=== PATIENT | male | born 1930 | race Caucasian/White ===

== ENCOUNTER 2016-07-21 00:45 | Inpatient (IN) | payer OTHER, MEDICARE ==
[2016-07-21 01:15] VITALS: BMI 22.9
--- NOTE | 2016-07-21 01:51 | PDOC ---
*Physical Exam - Vital Signs Last Vital Signs Temp Pulse Resp BP Pulse Ox 97.4 F L 64 18 122/76 95 07/21/16 01:01 07/21/16 01:01 07/21/16 01:01 07/21/16 01:01 07/21/16 01:01 ED Treatment Course - LABORATORY CBC & Chemistry Diagram: 07/21/16 01:25 07/21/16 02:32 Medical Decision Making - Medical Decision Making 07/21/16 01:50 agree with care from AYDIN Bear *DC/Admit/Observation/Transfer Diagnosis at time of Disposition: CHF (congestive heart failure), UTI (lower urinary tract infection), Renal failure - Discharge Dispostion Condition at time of disposition: Stable
[2016-07-21 01:52] LABS: BASOPHIL 0.8 % (0-2.0); EOSINOPHIL 4.2 % (0-4.5); MCH 33.3 pg (25.7-33.7); MCHC 32.5 g/dl (32.0-35.9); MEAN CELL VOLUME 102.2 fl (80-96); NEUTROPHILS 73.8 % (42.8-82.8); PLATELET COUNT 121 K/MM3 (134-434); RDW 15.2 % (11.9-15.9); WHITE BLOOD COUNT 5.3 K/mm3 (4.0-10.0)
--- NOTE | 2016-07-21 01:59 | PDOC ---
History of Present Illness <Lilo Tatum - Last Filed: 07/21/16 04:52> - General History Source: Patient, Significant Other Exam Limitations: No Limitations - History of Present Illness Initial Comments: 07/21/16 01:54 86yo Male patient presented to ED via EMS c/o diff breathing, anxiety, and diminished urine output per . states symptoms began couple days ago continues to worsen. She also notes that patient lower extremities are holding fluid. Patient denies CP, Abd pain, n/v/d, fever, cough, dysuria, hematuria, rectal bleeding, or any other complaints at this time. Timing/Duration: getting worse Severity: moderate Modifying Factors: worse with: cold therapy, eating, immobilization, medication , movement, rest, other Associated Symptoms: denies: denies symptoms, chest pain, cough, diaphoresis, fever/chills, headaches, loss of appetite, malaise, nausea/vomiting, rash, seizure, shortness of breath, syncope, weakness, other <Ina Bear - Last Filed: 07/21/16 04:56> - General Chief Complaint: Palpitations Stated Complaint: CHEST PAIN Time Seen by Provider: 07/21/16 01:46 Past History <Lilo Tatum - Last Filed: 07/21/16 04:52> - Travel Traveled outside of the country in the last 30 days: No Close contact w/someone who was outside of country & ill: No - Past Medical History Cardiac Disorders: Yes (CAD, PVD, CABG, stents) Diabetes: Yes HTN: Yes Kidney Stones: Yes Thyroid Disease: No - Surgical History Cardiac Surgery: Yes (cabg x 3/defibrillator implanted) Orthopedic Surgery: Yes (lt foot amputated) - Immunization History Td Vaccination: No TDAP Vaccination: No Immunization Up to Date: Yes - Psycho/Social/Smoking Cessation Hx Anxiety: No Suicidal Ideation: No Smoking Status: No Smoking History: Former smoker Years of Tobacco Use: 50 Have you smoked in the past 12 months: No Number of Cigarettes Smoked Daily: 0 If you are a former smoker, when did you quit?: 2009 Cigars Per Day: 0 Information on smoking cessation initiated: No Hx Alcohol Use: No Drug/Substance Use Hx: No Substance Use Type: None Hx Substance Use Treatment: No <Ina Bear - Last Filed: 07/21/16 04:56> - Past Medical History Allergies/Adverse Reactions: Allergies Allergy/AdvReac Type Severity Reaction Status Date / Time No Known Allergies Allergy Verified 10/25/15 16:09 Home Medications: Ambulatory Orders Ascorbate Calcium [Vitamin C] 500 mg PO DAILY 01/20/14 Aspirin [ASA -] 81 mg PO DAILY 01/20/14 Carvedilol 3.125 mg PO BID 01/20/14 Clopidogrel Bisulfate [Plavix -] 75 mg PO DAILY 01/20/14 Dutasteride [Avodart] 0.5 mg PO HS 01/20/14 Folic Acid - 1 mg PO DAILY 01/20/14 Levothyroxine [Synthroid -] 50 mcg PO DAILY 01/20/14 Pregabalin [Lyrica -] 50 mg PO DAILY 01/20/14 Ranitidine HCl [Zantac] 150 mg PO BID 01/20/14 Tamsulosin HCl [Flomax -] 0.4 mg PO DAILY 01/20/14 Furosemide [Lasix -] 20 mg PO DAILY 10/25/15 Magnesium 200 mg PO DAILY 10/25/15 Insulin Sliding Scale [Novolog Vial Sliding Scale -] 1 vial SQ ACHS units 10/30 Review of Systems - Review of Systems Able to Perform ROS?: Yes Is the patient limited Prydeinig proficient: No Constitutional: No: Chills, Fever Respiratory: Yes: Other (Trouble breathing). No: Cough, Orthopnea, Shortness of Breath, Wheezing Cardiac (ROS): Yes: Edema. No: Chest Pain, Irregular Heart Rate, Lightheadedness, Palpitations, Syncope ABD/GI: No: Diarrhea, Nausea, Poor Appetite, Rectal Bleeding, Vomiting, Tarry Stools, Other (abdominal pain) : No: Burning, Dysuria, Frequency, Flank Pain, Hematuria Musculoskeletal: No: Back Pain All Other Systems: Reviewed and Negative <Ina Bear - Last Filed: 07/21/16 04:56> *Physical Exam - Vital Signs Last Vital Signs Temp Pulse Resp BP Pulse Ox 97.4 F L 64 18 122/76 95 07/21/16 01:01 07/21/16 01:01 07/21/16 01:01 07/21/16 01:01 07/21/16 01:01 <Lilo Tatum - Last Filed: 07/21/16 04:52> - Vital Signs Last Vital Signs Temp Pulse Resp BP Pulse Ox 97.4 F L 64 18 122/76 95 07/21/16 01:01 07/21/16 01:01 07/21/16 01:01 07/21/16 01:01 07/21/16 01:01 - Physical Exam General Appearance: Yes: Nourished Neck: positive: Trachea midline, Supple Respiratory/Chest: positive: Decreased Breath Sounds (LLL and HAI) Cardiovascular: positive: Regular Rate, Other (Paced) Gastrointestinal/Abdominal: positive: Normal Bowel Sounds, Flat, Soft. negative : Tender Musculoskeletal: positive: Normal Inspection. 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 intact, Fully Oriented, Alert, Normal Mood/ Affect, Normal Response <Ina Bear D - Last Filed: 07/21/16 04:56> ED Treatment Course - LABORATORY CBC & Chemistry Diagram: 07/21/16 01:25 07/21/16 02:32 - ADDITIONAL ORDERS Additional order review: Laboratory Results 07/21/16 07/21/16 07/21/16 03:20 02:32 02:32 INR Sodium 139 Potassium 5.0 D Chloride 106 Carbon Dioxide 23 Anion Gap 10 BUN 49 H Creatinine 1.6 H Creat Clearance w eGFR 41.29 Random Glucose 178 H D Calcium 8.4 L Total Bilirubin 0.4 D AST 20 D ALT 29 D Alkaline Phosphatase 129 H Creatine Kinase 110 Troponin I 0.05 D B-Natriuretic Peptide 8544.24 H Cancelled Total Protein 7.3 Albumin 3.3 L D Urine Color Yellow Urine Appearance Cloudy Urine pH 5.0 Ur Specific [place] 1.015 Urine Protein 1+ H Urine Glucose (UA) Negative Urine Ketones Negative Urine Blood 2+ H Urine Nitrite Negative Urine Bilirubin Negative Urine Urobilinogen Negative Ur Leukocyte Esterase 3+ H Urine RBC 31 Urine WBC 788 Urine Bacteria Moderate Hyaline Casts 4 Urine Mucus Rare 07/21/16 07/21/16 01:25 01:25 INR 1.23 H Sodium Cancelled Potassium Cancelled Chloride Cancelled Carbon Dioxide Cancelled Anion Gap Cancelled BUN Cancelled Creatinine Cancelled Creat Clearance w eGFR Cancelled Random Glucose Cancelled Calcium Cancelled Total Bilirubin Cancelled AST Cancelled ALT Cancelled Alkaline Phosphatase Cancelled Creatine Kinase Cancelled Troponin I Cancelled B-Natriuretic Peptide Total Protein Cancelled Albumin Cancelled Urine Color Urine Appearance Urine pH Ur Specific [place] Urine Protein Urine Glucose (UA) Urine Ketones Urine Blood Urine Nitrite Urine Bilirubin Urine Urobilinogen Ur Leukocyte Esterase Urine RBC Urine WBC Urine Bacteria Hyaline Casts Urine Mucus 07/21/16 01:25 RBC 3.55 L MCV 102.2 H MCHC 32.5 RDW 15.2 D MPV 11.0 D Neutrophils % 73.8 Lymphocytes % 10.3 D Monocytes % 10.9 H Eosinophils % 4.2 Basophils % 0.8 <Lilo Tatum - Last Filed: 07/21/16 04:52> - LABORATORY CBC & Chemistry Diagram: 07/21/16 01:25 07/21/16 02:32 <Ina Bear - Last Filed: 07/21/16 04:56> Medical Decision Making - Medical Decision Making 07/21/16 04:[address] Joie Noonan at 4:27. Awaiting call back. Dr. Noonan responded at 4:52 and patient's case was discussed. 07/21/16 04:52 <Lilo Tatum - Last Filed: 07/21/16 04:52> *DC/Admit/Observation/Transfer <Lilo Tatum - Last Filed: 07/21/16 04:52> - Discharge Dispostion Admit: Yes <Ina Bear - Last Filed: 07/21/16 04:56> Diagnosis at time of Disposition: UTI (lower urinary tract infection), Renal failure CHF (congestive heart failure) Qualifiers: Congestive heart failure type: unspecified congestive heart failure type Congestive heart failure chronicity: acute on chronic Qualified Code(s): I50.9 - Heart failure, unspecified - Discharge Dispostion Condition at time of disposition: Stable
[2016-07-21 02:09] LABS: INR 1.23 (0.82-1.09); PROTHROMBIN TIME (PATIENT) 13.6 SEC (9.98-11.88)
[2016-07-21 03:20] LABS: ALBUMIN 3.3 g/dl (3.4-5.0); BILIRUBIN,TOTAL 0.4 mg/dL (0.2-1.0); CALCIUM 8.4 mg/dL (8.5-10.1); CREATININE 1.6 mg/dL (0.7-1.3); TOT PROT 7.3 g/dl (6.4-8.2)
[2016-07-21 03:23] LABS: TROPONIN I 0.05 ng/ml (0.00-0.05)
[2016-07-21 03:45] LABS: URINE APPEARANCE CLOUDY; URINE BILIRUBIN NEGATIVE (NEGATIVE); URINE BLOOD 2+ (NEGATIVE); URINE COLOR YELLOW; URINE GLUCOSE (UA) NEGATIVE (NEGATIVE); URINE KETONE NEGATIVE (NEGATIVE); URINE LEUK ESTERASE 3+ (NEGATIVE); URINE NITRITE NEGATIVE (NEGATIVE); URINE PROTEIN 1+ (NEGATIVE); URINE UROBILINOGEN NEGATIVE E.U./dl (0.2-1.0)
[2016-07-21 03:51] LABS: URINE BACTERIA MODERATE /hpf (NONE SEEN); URINE HYALINE CAST 4 /lpf; URINE MUCUS RARE; URINE RBC 31 /hpf (0-3); URINE WBC 788 /hpf (3-5)
[2016-07-21] MEDS ORDERED: ALBUTEROL SO4 0.083% IH SOL 2.5 MG/3 ML VIAL.NEB. NEB ONE ×2 (04:12→04:16)
[2016-07-21] MEDS ORDERED: FUROSEMIDE 40 MG/4 ML INJECTABLE VIAL IVPB ONE (04:12)
[2016-07-21] MEDS ORDERED: CEFAZOLIN 1 GM/D5W 50 ML IVPB ONE (04:13)
[2016-07-21] MEDS ORDERED: CEFAZOLIN (PRE-DOCKED) 50 ML IVPB ONE (04:17)
[2016-07-21] MEDS ORDERED: FUROSEMIDE 40 MG/4 ML INJECTABLE VIAL ONE ×3 (04:17→10:25)
[2016-07-21] MEDS ORDERED: TAMSULOSIN HCL 0.4 MG CAP.ER.24H (FP) ONE (08:32)
[2016-07-21] MEDS: TAMSULOSIN HCL 0.4 MG CAP.ER.24H (FP) PO SCH (08:34)
[2016-07-21] MEDS ORDERED: CLOPIDOGREL BISULFATE 75 MG TABLET (FP) ONE (10:08)
[2016-07-21] MEDS ORDERED: CARVEDILOL 3.125 MG TABLET (FP) ONE (10:08)
[2016-07-21] MEDS ORDERED: ASPIRIN 81 MG CHEWABLE TABLETS ONE (10:08)
[2016-07-21] MEDS ORDERED: PREGABALIN 50 MG CAPSULE ONE (10:08)
[2016-07-21] MEDS ORDERED: RANITIDINE HCL 150 MG TABLET (FP) ONE (10:08)
[2016-07-21] MEDS ORDERED: FOLIC ACID 1 MG TABLET (FP) ONE (10:09)
[2016-07-21] MEDS ORDERED: HEPARIN NA (PORCINE) 5,000 UNITS/ML 1ML VIAL ONE (10:09)
[2016-07-21] MEDS ORDERED: CEFTRIAXONE 50 ML ONE (10:09)
[2016-07-21] MEDS: ASPIRIN 81 MG CHEWABLE TABLETS PO SCH (10:18)
[2016-07-21] MEDS: PREGABALIN 50 MG CAPSULE PO SCH (10:19)
[2016-07-21] MEDS: CLOPIDOGREL BISULFATE 75 MG TABLET (FP) PO SCH (10:19)
[2016-07-21] MEDS: CEFTRIAXONE 50 ML IVPB SCH (10:19)
[2016-07-21] MEDS: CARVEDILOL 3.125 MG TABLET (FP) PO SCH ×2 (10:19→21:27)
[2016-07-21] MEDS: FOLIC ACID 1 MG TABLET (FP) PO SCH (10:19)
[2016-07-21] MEDS: HEPARIN NA (PORCINE) 5,000 UNITS/ML 1ML VIAL SQ SCH ×2 (10:19→21:34)
[2016-07-21] MEDS: RANITIDINE HCL 150 MG TABLET (FP) PO SCH ×2 (10:20→21:27)
[2016-07-21] MEDS: FUROSEMIDE 40 MG/4 ML INJECTABLE VIAL IVPUSH SCH (10:30)
[2016-07-21] MEDS: ASCORBIC ACID 500 MG TABLET (FP) PO SCH (11:51)
[2016-07-21] MEDS ORDERED: INSULIN (NOVOLOG) ASPART 100 UNITS/ML 10ML VIAL ONE (12:43)
[2016-07-21] MEDS: INSULIN (NOVOLOG) ASPART 100 UNITS/ML 10ML VIAL SQ SCH ×2 (12:45→16:23)
--- NOTE | 2016-07-21 12:48 | CONSULT ---
Consult Consult Specialty:: Cardiology Referred by:: Dr. 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 He presents with decreased urine output possibly due to UTI and shortness of breath possibly due to pneumonia. He complains of mild cough. Denies fever or chills. Denies chest pain or palpitation. Denies fever or chills. Denies headache or lightheadedness. He has had history of UTI and was also evaluated by in the past. Cardiology consultation was called for further evaluation. - History Source History Provided By: Patient, Family Member Limitations to Obtaining History: No Limitations - Past Medical History Cardio/Vascular: Yes: CAD, HTN, Other (ASHD, AICD, CABG). No: AFIB Pulmonary: Yes: COPD Gastrointestinal: Yes: Other (recent C diff colitis, gallstones, chronic cholecystitis) Renal/: Yes: Renal Failure (had ARF last month in September creat bumped to 2), BPH, Renal Calculi Infectious Disease: Yes: C-Diff Musculoskeletal: Yes: Other (L foot wound s/p partial amputation) Endocrine: Yes: Diabetes Mellitus, Other (diabetic neuropathy) - Past Surgical History Past Surgical History: Yes: AICD, Amputation (TMA), Bypass, CABG - Alcohol/Substance Use Hx Alcohol Use: No History of Substance Use: reports: None - Smoking History Smoking history: Former smoker Have you smoked in the past 12 months: No Aproximately how many cigarettes per day: 0 If you are a former smoker, when did you quit?: 2009 - Social History Usual Living Arrangement: With Spouse ADL: Family Assistance History of Recent Travel: No Home Medications - Allergies Allergies/Adverse Reactions: Allergies Allergy/AdvReac Type Severity Reaction Status Date / Time No Known Allergies Allergy Verified 10/25/15 16:09 - Home Medications Home Medications: Ambulatory Orders Ascorbate Calcium [Vitamin C] 500 mg PO DAILY 01/20/14 Aspirin [ASA -] 81 mg PO DAILY 01/20/14 Carvedilol 3.125 mg PO BID 01/20/14 Clopidogrel Bisulfate [Plavix -] 75 mg PO DAILY 01/20/14 Dutasteride [Avodart] 0.5 mg PO HS 01/20/14 Folic Acid - 1 mg PO DAILY 01/20/14 Levothyroxine [Synthroid -] 50 mcg PO ASDIR 01/20/14 Pregabalin [Lyrica -] 50 mg PO DAILY 01/20/14 Ranitidine HCl [Zantac] 150 mg PO BID 01/20/14 Tamsulosin HCl [Flomax -] 0.4 mg PO DAILY 01/20/14 Furosemide [Lasix -] 20 mg PO DAILY 10/25/15 Magnesium 200 mg PO DAILY 10/25/15 Insulin Glargine,Hum.rec.anlog [Lantus Solostar PEN (NF)] 10 units SQ HS Levothyroxine [Synthroid -] 75 mcg PO ASDIR 07/21/16 Family Disease History - Family Disease History Family Disease History: Heart Disease: Mother, Brother (liver [place]), [place]: Brother Review of Systems - Review of Systems Constitutional: denies: Chills, Fever Cardiovascular: reports: Shortness of Breath. denies: Chest Pain, Palpitations Respiratory: reports: Cough. denies: Hemoptysis, Orthopnea, PND Gastrointestinal: denies: Abdominal Pain, Constipation, Diarrhea, Melena, Nausea , Rectal Bleeding, Vomiting Neurological: denies: Dizziness, Headache, Seizure, Syncope Vital Signs: Vital Signs Temperature 97.0 F L 07/21/16 11:48 Pulse Rate 73 07/21/16 11:48 Respiratory Rate 20 07/21/16 11:48 Blood Pressure 133/80 07/21/16 11:48 O2 Sat by Pulse Oximetry (%) 98 07/21/16 06:33 Neck: Yes: Supple Respiratory: Yes: Diminished Gastrointestinal: Yes: Normal Bowel Sounds, Soft. No: Tenderness Cardiovascular: Yes: Regular Rate and Rhythm JVD: No Carotid Bruit: No PMI: Non-Displaced Heart Sounds: Yes: S1, S2. No: Gallop Edema: Yes Edema: LLE: Trace, RLE: Trace - Other Data Labs, Other Data: INR, PTT INR 1.23 (0.82-1.09) H 07/21/16 01:25 Laboratory Results - last 24 hr 07/21/16 07/21/16 07/21/16 01:25 01:25 01:25 WBC 5.3 RBC 3.55 L Hgb 11.8 D Hct 36.3 D MCV 102.2 H MCHC 32.5 RDW 15.2 D Plt Count 121 L D MPV 11.0 D Neutrophils % 73.8 Lymphocytes % 10.3 D Monocytes % 10.9 H Eosinophils % 4.2 Basophils % 0.8 INR 1.23 H Sodium Cancelled Potassium Cancelled Chloride Cancelled Carbon Dioxide Cancelled Anion Gap Cancelled BUN Cancelled Creatinine Cancelled Creat Clearance w eGFR Cancelled POC Glucometer Random Glucose Cancelled Calcium Cancelled Total Bilirubin Cancelled AST Cancelled ALT Cancelled Alkaline Phosphatase Cancelled Creatine Kinase Cancelled Troponin I Cancelled B-Natriuretic Peptide Total Protein Cancelled Albumin Cancelled Urine Color Urine Appearance Urine pH Ur Specific [place] Urine Protein Urine Glucose (UA) Urine Ketones Urine Blood Urine Nitrite Urine Bilirubin Urine Urobilinogen Ur Leukocyte Esterase Urine RBC Urine WBC Urine Bacteria Hyaline Casts Urine Mucus 07/21/16 07/21/16 07/21/16 02:32 02:32 03:20 WBC RBC Hgb Hct MCV MCHC RDW Plt Count MPV Neutrophils % Lymphocytes % Monocytes % Eosinophils % Basophils % INR Sodium 139 Potassium 5.0 D Chloride 106 Carbon Dioxide 23 Anion Gap 10 BUN 49 H Creatinine 1.6 H Creat Clearance w eGFR 41.29 POC Glucometer Random Glucose 178 H D Calcium 8.4 L Total Bilirubin 0.4 D AST 20 D ALT 29 D Alkaline Phosphatase 129 H Creatine Kinase 110 Troponin I 0.05 D B-Natriuretic Peptide Cancelled 8544.24 H Total Protein 7.3 Albumin 3.3 L D Urine Color Yellow Urine Appearance Cloudy Urine pH 5.0 Ur Specific [place] 1.015 Urine Protein 1+ H Urine Glucose (UA) Negative Urine Ketones Negative Urine Blood 2+ H Urine Nitrite Negative Urine Bilirubin Negative Urine Urobilinogen Negative Ur Leukocyte Esterase 3+ H Urine RBC 31 Urine WBC 788 Urine Bacteria Moderate Hyaline Casts 4 Urine Mucus Rare Ventricular paced rhythm Imaging - Results Chest X-ray: Report Reviewed (Left base infiltrate, congestive changes) EKG: Report Reviewed Problem List - Problems (1) CHF (congestive heart failure) Code(s): I50.9 - HEART FAILURE, UNSPECIFIED Qualifiers: Congestive heart failure type: unspecified congestive heart failure type Congestive heart failure chronicity: acute on chronic Qualified Code(s ): I50.9 - Heart failure, unspecified (2) ASHD (arteriosclerotic heart disease) Code(s): I25.10 - ATHSCL HEART DISEASE OF [place] CORONARY ARTERY W/O ANG PCTRS (3) Anemia Code(s): D64.9 - ANEMIA, UNSPECIFIED Qualifiers: Anemia type: unspecified type Qualified Code(s): D64.9 - Anemia, unspecified (4) COPD (chronic obstructive pulmonary disease) Code(s): J44.9 - CHRONIC OBSTRUCTIVE PULMONARY DISEASE, UNSPECIFIED Qualifiers : COPD type: chronic bronchitis (5) Diabetes mellitus Code(s): E11.9 - TYPE 2 DIABETES MELLITUS WITHOUT COMPLICATIONS Qualifiers: Diabetes mellitus type: type 2 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) (6) Hx of CABG Code(s): Z95.1 - PRESENCE OF AORTOCORONARY BYPASS GRAFT (7) Hypothyroidism Code(s): E03.9 - HYPOTHYROIDISM, UNSPECIFIED (8) ICD (implantable cardioverter-defibrillator) in place Code(s): Z95.810 - PRESENCE OF AUTOMATIC (IMPLANTABLE) CARDIAC DEFIBRILLATOR (9) Peripheral arterial disease Code(s): I73.9 - PERIPHERAL VASCULAR DISEASE, UNSPECIFIED (10) Pneumonia Code(s): J18.9 - PNEUMONIA, UNSPECIFIED ORGANISM Qualifiers: Laterality: bilateral (11) Systolic dysfunction with acute on chronic heart failure Code(s): I50.23 - ACUTE ON CHRONIC SYSTOLIC (CONGESTIVE) HEART FAILURE (12) Urinary tract infection Code(s): N39.0 - URINARY TRACT INFECTION, SITE NOT SPECIFIED Qualifiers: Urinary tract infection type: site unspecified Hematuria presence: without hematuria Qualified Code(s): N39.0 - Urinary tract infection, site not specified Assessment/Plan 1. Pneumonia with left base infiltrate 2. History of UTI 3. CAD s/p CABG, angina 4. LV systolic dysfunction with history of failure 5. Post ICD implant with history of VT 6. HTN/HCVD 7. Hypercholesterolemia 8. Diabetes Mellitus 9. 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 Carotid artery disease PLAN: 1. Antibiotic coverage 2. Continue Carvedilol 3. ASA and Plavix 4. Diuretics IV Further plans are to follow Kyeon Fair MD
--- NOTE | 2016-07-21 16:36 | EKG ---
Test Reason : Blood Pressure : / mmHG Vent. Rate : 066 BPM Atrial Rate : 227 BPM P-R Int : 000 ms QRS Dur : 168 ms QT Int : 486 ms P-R-T Axes : -22 -65 103 degrees QTc Int : 509 ms Ventricular-paced rhythm ABNORMAL ECG WHEN COMPARED WITH ECG OF 25-OCT-2015 15:53, ELECTRONIC VENTRICULAR PACEMAKER HAS REPLACED SINUS RHYTHM Confirmed by HANNA BURNS MD ([id number]) on 07/21/2016 4:35:49 PM Referred By: Confirmed By:HANNA BURNS MD
--- NOTE | 2016-07-21 19:11 | HP ---
Admitting History and Physical - Primary Care Physician PCP: Joie Noonan S - Admission Chief Complaint: cough SOB History of Present Illness: 86yo Male patient presented to ED via EMS c/o cough and diff breathing, anxiety , and diminished urine output per . states symptoms began couple days ago continues to worsen. She also notes that patient lower extremities are holding fluid. Patient denies CP, Abd pain, n/v/d, fever,dysuria, hematuria, rectal bleeding, or any other complaints at this time. Modifying Factors: worse with: cold therapy, eating, immobilization, medication , movement, rest, other Associated Symptoms: denies: denies symptoms, chest pain,diaphoresis, fever/ chills, headaches, loss of appetite, malaise, nausea/vomiting, rash, seizure, shortness of breath, syncope, weakness, other Pt seen in ER with at bedside Pt and said they are seeing dr Kirk endocrine (also PCP) every 2-3 months and "everything was OK recently". History Source: Patient, Family Member Limitations to Obtaining History: No Limitations - Past Medical History Cardiovascular: Yes: CAD, HTN, Other (ASHD, AICD, CABG). No: AFIB Pulmonary: Yes: COPD Gastrointestinal: Yes: Other (recent C diff colitis, gallstones, chronic cholecystitis) Renal/: Yes: Renal Failure (had ARF last month in September creat bumped to 2), BPH, Renal Calculi Heme/Onc: Yes: Anemia Infectious Disease: Yes: C-Diff Musculoskeletal: Yes: Other (L foot wound s/p partial amputation) Endocrine: Yes: Diabetes Mellitus, Other (diabetic neuropathy) - Past Surgical History Past Surgical History: Yes: Amputation (TMA), Bypass, CABG, Permanent Pacemaker (ICD) - Smoking History Smoking history: Former smoker Have you smoked in the past 12 months: No Aproximately how many cigarettes per day: 0 If you are a former smoker, when did you quit?: 2009 - Alcohol/Substance Use Hx Alcohol Use: No History of Substance Use: reports: None - Social History Usual Living Arrangement: Yes: With Spouse ADL: Family Assistance History of Recent Travel: No Home Medications - Allergies Allergies/Adverse Reactions: Allergies Allergy/AdvReac Type Severity Reaction Status Date / Time No Known Allergies Allergy Verified 10/25/15 16:09 - Home Medications Home Medications: Ambulatory Orders Ascorbate Calcium [Vitamin C] 500 mg PO DAILY 01/20/14 Aspirin [ASA -] 81 mg PO DAILY 01/20/14 Carvedilol 3.125 mg PO BID 01/20/14 Clopidogrel Bisulfate [Plavix -] 75 mg PO DAILY 01/20/14 Dutasteride [Avodart] 0.5 mg PO HS 01/20/14 Folic Acid - 1 mg PO DAILY 01/20/14 Levothyroxine [Synthroid -] 50 mcg PO ASDIR 01/20/14 Pregabalin [Lyrica -] 50 mg PO DAILY 01/20/14 Ranitidine HCl [Zantac] 150 mg PO BID 01/20/14 Tamsulosin HCl [Flomax -] 0.4 mg PO DAILY 01/20/14 Furosemide [Lasix -] 20 mg PO DAILY 10/25/15 Magnesium 200 mg PO DAILY 10/25/15 Insulin Glargine,Hum.rec.anlog [Lantus Solostar PEN (NF)] 10 units SQ HS Levothyroxine [Synthroid -] 75 mcg PO ASDIR 07/21/16 Family Disease History - Family Disease History Family Disease History: Heart Disease: Mother, Brother (liver [place]), [place]: Brother Review of Systems - Review of Systems Constitutional: reports: Loss of Appetite. denies: Chills, Fever, Lethargy Eyes: denies: Blind Spots, Blurred Vision, Double Vision HENT: denies: Difficult Swallowing, Ear Pain Neck: denies: Stiffness, Tenderness Cardiovascular: reports: Chest Pain (with cough), Edema, Palpitations, Shortness of Breath Respiratory: reports: Cough, Exercise Intolerance, Orthopnea, SOB, SOB on Exertion. denies: Hemoptysis, PND, Wheezing Gastrointestinal: denies: Abdominal Pain, Bloating, Constipation, Diarrhea, Dysphagia, Vomiting Genitourinary: denies: Discharge, Dysuria, Flank Pain Musculoskeletal: denies: Back Pain, Joint Pain, Muscle Weakness Integumentary: denies: Wound Neurological: denies: Change in LOC, Change in Speech, Confusion, Dizziness, Headache, Incoordination, Seizure, Syncope, Tremors, Unsteady Gait Endocrine: denies: Excessive Sweating Hematology/Lymphatic: denies: Easily Bruised, Excessive Bleeding Psychiatric: denies: Altered Sleep Pattern, Anxiety, Depression Physical Examination Vital Signs: Vital Signs Temperature 97.2 F L 07/21/16 17:18 Pulse Rate 60 07/21/16 17:18 Respiratory Rate 18 07/21/16 17:18 Blood Pressure 119/66 07/21/16 17:18 O2 Sat by Pulse Oximetry (%) 98 07/21/16 15:32 Constitutional: Yes: No Distress, Calm Eyes: Yes: Conjunctiva Clear HENT: Yes: Atraumatic Neck: Yes: Supple Cardiovascular: Yes: Regular Rate and Rhythm Respiratory: Yes: Diminished Gastrointestinal: Yes: Soft. No: Distention, Tenderness Renal/: No: CVA Tenderness - Left, CVA Tenderness - Right Musculoskeletal: No: Joint Stiffness, Joint Swelling Extremities: No: Cold, Cool Edema: Yes (periankles edema) Peripheral Pulses WNL: Yes Integumentary: No: Pressure Ulcer, Rash, Venous Stasis Changes Neurological: Yes: WNL, Alert, Oriented ...Motor Strength: WNL Psychiatric: Yes: WNL, Alert, Oriented. No: Agitated, Suicidal Ideation Imaging - Results Chest X-ray: Report Reviewed Other: Report Reviewed Assessment/Plan 86yo Male patient presented to ED via EMS c/o cough and diff breathing, anxiety , and diminished urine output per . states symptoms began couple days ago continues to worsen. She also notes that patient lower extremities are holding fluid. Patient denies CP, Abd pain, n/v/d, fever, dysuria, hematuria, rectal bleeding, or any other complaints at this time. CXR c/w CHF and LLL PNA; UA c/w UTI High BNP, also mild ARF on CRF admit; IV lasix; IV ATB cardiology eval f/u CXR; if not better will check chest CT check Renal pelvic US r/o stones f/u labs and cultures falls DVT aspiration and decubs PFX d/w pt and staff
[2016-07-21] MEDS: DUTASTERIDE 0.5 MG CAP (FP) PO SCH (21:27)
[2016-07-21] MEDS: INSULIN DETEMIR 100 UNITS/ML MDV SQ SCH (21:28)
[2016-07-21] MEDS: INSULIN SLIDING SCALE (NOVOLOG) 1 VIAL SQ SCH (21:40)
[2016-07-22] MEDS: INSULIN SLIDING SCALE (NOVOLOG) 1 VIAL SQ SCH ×4 (06:21→22:09)
[2016-07-22] MEDS: LEVOTHYROXINE NA 50 MCG TABLET (FP) PO SCH (06:48)
[2016-07-22 08:01] LABS: BASOPHIL 0.7 % (0-2.0); EOSINOPHIL 3.4 % (0-4.5); MCH 34.2 pg (25.7-33.7); MCHC 33.5 g/dl (32.0-35.9); MEAN CELL VOLUME 102.2 fl (80-96); MEAN PLT VOLUME 10.8 fl (7.5-11.1); NEUTROPHILS 75.4 % (42.8-82.8); PLATELET COUNT 113 K/MM3 (134-434); RDW 15.2 % (11.9-15.9); WHITE BLOOD COUNT 5.7 K/mm3 (4.0-10.0)
[2016-07-22 08:40] LABS: ALBUMIN 3.1 g/dl (3.4-5.0); BILIRUBIN,TOTAL 0.4 mg/dL (0.2-1.0); CALCIUM 8.6 mg/dL (8.5-10.1); CREATININE 1.6 mg/dL (0.7-1.3); THYROID STIMULATING HORMONE 3.64 uIU/ml (0.358-3.74); TOT PROT 6.8 g/dl (6.4-8.2); TROPONIN I 0.04 ng/ml (0.00-0.05)
[2016-07-22] MEDS: FOLIC ACID 1 MG TABLET (FP) PO SCH (12:12)
[2016-07-22] MEDS: TAMSULOSIN HCL 0.4 MG CAP.ER.24H (FP) PO SCH (12:12)
[2016-07-22] MEDS: PREGABALIN 50 MG CAPSULE PO SCH (12:12)
[2016-07-22] MEDS: ASPIRIN 81 MG CHEWABLE TABLETS PO SCH (12:12)
[2016-07-22] MEDS: RANITIDINE HCL 150 MG TABLET (FP) PO SCH ×2 (12:12→22:09)
[2016-07-22] MEDS: CLOPIDOGREL BISULFATE 75 MG TABLET (FP) PO SCH (12:13)
[2016-07-22] MEDS: CEFTRIAXONE 50 ML IVPB SCH (12:13)
[2016-07-22] MEDS: CARVEDILOL 3.125 MG TABLET (FP) PO SCH ×2 (12:13→21:57)
[2016-07-22] MEDS: ASCORBIC ACID 500 MG TABLET (FP) PO SCH (12:13)
[2016-07-22] MEDS: HEPARIN NA (PORCINE) 5,000 UNITS/ML 1ML VIAL SQ SCH ×2 (12:14→21:57)
[2016-07-22] MEDS: FUROSEMIDE 40 MG/4 ML INJECTABLE VIAL IVPUSH SCH (12:18)
--- NOTE | 2016-07-22 12:22 | PN ---
Progress Note, Physician Chief Complaint: in bed no new c/o; less SOB, occasional cough - Current Medication List Current Medications: Active Medications Ascorbic Acid (Vitamin C -) 500 mg PO DAILY [facility] Last Admin: 07/21/16 11:51 Dose: 500 mg Aspirin (Asa -) 81 mg PO DAILY [facility] Last Admin: 07/21/16 10:18 Dose: 81 mg Carvedilol (Coreg -) 3.125 mg PO BID [facility] Last Admin: 07/21/16 21:27 Dose: 3.125 mg Clopidogrel Bisulfate (Plavix -) 75 mg PO DAILY [facility] Last Admin: 07/21/16 10:19 Dose: 75 mg Dutasteride (Avodart -) 0.5 mg PO HS [facility] Last Admin: 07/21/16 21:27 Dose: 0.5 mg Folic Acid (Folic Acid -) 1 mg PO DAILY [facility] Last Admin: 07/21/16 10:19 Dose: 1 mg Furosemide (Lasix Injection -) 40 mg IVPUSH DAILY [facility] Last Admin: 07/21/16 10:30 Dose: 40 mg Heparin Sodium (Porcine) (Heparin -) 5,000 unit SQ BID [facility] Last Admin: 07/21/16 21:34 Dose: 5,000 unit Ceftriaxone Sodium (Rocephin 1gm Ivpb (Pre-Docked)) 50 mls @ 100 mls/hr IVPB DAILY [facility] Last Admin: 07/21/16 10:19 Dose: 100 mls/hr Insulin Aspart (Novolog Vial Sliding Scale -) 1 vial SQ ACHS [facility] PRN Reason: Protocol Last Admin: 07/22/16 06:21 Dose: Not Given Insulin Detemir (Levemir Vial) 10 units SQ HS [facility] Last Admin: 07/21/16 21:28 Dose: 10 units Levothyroxine Sodium (Synthroid -) 50 mcg PO AM [facility] Last Admin: 07/22/16 06:48 Dose: 50 mcg Pregabalin (Lyrica -) 50 mg PO DAILY [facility] Last Admin: 07/21/16 10:19 Dose: 50 mg Ranitidine HCl (Zantac -) 150 mg PO BID [facility] Last Admin: 07/21/16 21:27 Dose: 150 mg Tamsulosin HCl (Flomax -) 0.4 mg PO DAILY@0830 [facility] Last Admin: 07/21/16 08:34 Dose: 0.4 mg - Objective Vital Signs: Vital Signs Temperature 97.8 F 07/22/16 05:34 Pulse Rate 79 07/22/16 05:34 Respiratory Rate 20 07/22/16 05:34 Blood Pressure 113/64 07/22/16 05:34 O2 Sat by Pulse Oximetry (%) 98 07/21/16 20:44 Constitutional: Yes: No Distress, Calm Eyes: Yes: Conjunctiva Clear HENT: Yes: Atraumatic Neck: Yes: Supple Cardiovascular: Yes: Regular Rate and Rhythm Respiratory: Yes: Diminished Gastrointestinal: Yes: Soft. No: Distention, Tenderness Genitourinary: No: CVA Tenderness - Left, CVA Tenderness - Right Musculoskeletal: No: Joint Stiffness, Joint Swelling Extremities: No: Cold, Cool Edema: Yes (less) Peripheral Pulses WNL: Yes Integumentary: No: Rash, Venous Stasis Changes Neurological: Yes: WNL, Alert, Oriented ...Motor Strength: WNL Psychiatric: Yes: WNL, Alert, Oriented. No: Agitated Labs: CBC, BMP 07/22/16 06:00 07/22/16 06:00 INR, PTT INR 1.23 (0.82-1.09) H 07/21/16 01:25 - ....Imaging Other: Report Reviewed Assessment/Plan 86yo Male patient presented to ED via EMS c/o cough and diff breathing, anxiety , and diminished urine output per . states symptoms began couple days ago continues to worsen. She also notes that patient lower extremities are holding fluid. Patient denies CP, Abd pain, n/v/d, fever, dysuria, hematuria, rectal bleeding, or any other complaints at this time. CXR c/w CHF and LLL PNA; UA c/w UTI High BNP, also mild ARF on CRF, significant BPH but small postvoid residual needs admit; IV lasix; IV ATB cardiology eval f/u CXR; if not better will check chest CT check Renal pelvic US r/o stones f/u labs and cultures falls DVT aspiration and decubs PFX d/w pt and staff t time 35
[2016-07-22] MEDS: DUTASTERIDE 0.5 MG CAP (FP) PO SCH (21:57)
[2016-07-22] MEDS: INSULIN DETEMIR 100 UNITS/ML MDV SQ SCH (22:08)
[2016-07-23] MEDS: INSULIN SLIDING SCALE (NOVOLOG) 1 VIAL SQ SCH ×4 (06:16→22:14)
[2016-07-23] MEDS: LEVOTHYROXINE NA 50 MCG TABLET (FP) PO SCH (06:16)
[2016-07-23 07:17] LABS: EOSINOPHIL 4.6 % (0-4.5); MCH 34.3 pg (25.7-33.7); MCHC 32.9 g/dl (32.0-35.9); RDW 15.3 % (11.9-15.9)
[2016-07-23 07:48] LABS: ALBUMIN 2.9 g/dl (3.4-5.0); BILIRUBIN,TOTAL 0.4 mg/dL (0.2-1.0); CALCIUM 8.4 mg/dL (8.5-10.1); CREATININE 1.5 mg/dL (0.7-1.3); TOT PROT 6.4 g/dl (6.4-8.2)
[2016-07-23] MEDS: ASPIRIN 81 MG CHEWABLE TABLETS PO SCH (09:06)
[2016-07-23] MEDS: PREGABALIN 50 MG CAPSULE PO SCH (09:06)
[2016-07-23] MEDS: CLOPIDOGREL BISULFATE 75 MG TABLET (FP) PO SCH (09:06)
[2016-07-23] MEDS: TAMSULOSIN HCL 0.4 MG CAP.ER.24H (FP) PO SCH (09:06)
[2016-07-23] MEDS: ASCORBIC ACID 500 MG TABLET (FP) PO SCH (09:06)
[2016-07-23] MEDS: FOLIC ACID 1 MG TABLET (FP) PO SCH (09:06)
[2016-07-23] MEDS: CEFTRIAXONE 50 ML IVPB SCH (09:07)
[2016-07-23] MEDS: HEPARIN NA (PORCINE) 5,000 UNITS/ML 1ML VIAL SQ SCH (09:07)
[2016-07-23] MEDS: RANITIDINE HCL 150 MG TABLET (FP) PO SCH ×2 (09:07→22:10)
[2016-07-23] MEDS: FUROSEMIDE 40 MG/4 ML INJECTABLE VIAL IVPUSH SCH (09:07)
[2016-07-23] MEDS: CARVEDILOL 3.125 MG TABLET (FP) PO SCH ×2 (09:11→22:09)
[2016-07-23] MEDS ORDERED: ACETAMINOPHEN 325 MG TABLET (FP) PO ONE (10:30)
[2016-07-23] MEDS ORDERED: oxyCODONE HCL 5 MG TABLET PO ONE (10:30)
[2016-07-23 11:37] LABS: MEAN PLT VOLUME 10.5 fl (7.5-11.1); PLATELET COMMENT2 NO CLOTTING DETECTED; PLATELET COUNT 99 K/MM3 (134-434); PLATELET ESTIMATE SLT DECREASED (NORMAL)
--- NOTE | 2016-07-23 12:09 | CONSULT ---
Consult - History of Present Illness History of Present Illness: 86 yo male admitted with cough and decreased urine output. Noted to have gross hematuria this am with urinary retention. Has h/o BPH and is maintained on avodart and flomax. Upon examination, patient bladder was distended. Currently on ASA/Plavix/Heparin - Past Medical History Cardio/Vascular: Yes: CAD, HTN, Other (ASHD, AICD, CABG). No: AFIB Pulmonary: Yes: COPD Gastrointestinal: Yes: Other (recent C diff colitis, gallstones, chronic cholecystitis) Renal/: Yes: Renal Failure (had ARF last month in September creat bumped to 2), BPH, Renal Calculi Infectious Disease: Yes: C-Diff Musculoskeletal: Yes: Other (L foot wound s/p partial amputation) Endocrine: Yes: Diabetes Mellitus, Other (diabetic neuropathy) - Past Surgical History Past Surgical History: Yes: AICD, Amputation (TMA), Bypass, CABG - Alcohol/Substance Use Hx Alcohol Use: No History of Substance Use: reports: None - Smoking History Smoking history: Former smoker Have you smoked in the past 12 months: No Aproximately how many cigarettes per day: 0 If you are a former smoker, when did you quit?: 2009 - Social History Usual Living Arrangement: With Spouse ADL: Family Assistance History of Recent Travel: No Home Medications - Allergies Allergies/Adverse Reactions: Allergies Allergy/AdvReac Type Severity Reaction Status Date / Time No Known Allergies Allergy Verified 10/25/15 16:09 - Home Medications Home Medications: Ambulatory Orders Ascorbate Calcium [Vitamin C] 500 mg PO DAILY 01/20/14 Aspirin [ASA -] 81 mg PO DAILY 01/20/14 Carvedilol 3.125 mg PO BID 01/20/14 Clopidogrel Bisulfate [Plavix -] 75 mg PO DAILY 01/20/14 Dutasteride [Avodart] 0.5 mg PO HS 01/20/14 Folic Acid - 1 mg PO DAILY 01/20/14 Levothyroxine [Synthroid -] 50 mcg PO ASDIR 01/20/14 Pregabalin [Lyrica -] 50 mg PO DAILY 01/20/14 Ranitidine HCl [Zantac] 150 mg PO BID 01/20/14 Tamsulosin HCl [Flomax -] 0.4 mg PO DAILY 01/20/14 Furosemide [Lasix -] 20 mg PO DAILY 10/25/15 Magnesium 200 mg PO DAILY 10/25/15 Insulin Glargine,Hum.rec.anlog [Lantus Solostar PEN (NF)] 10 units SQ HS Levothyroxine [Synthroid -] 75 mcg PO ASDIR 07/21/16 Family Disease History - Family Disease History Family Disease History: Heart Disease: Mother, Brother (liver CA), CA: Brother Physical Exam- Vital Signs: Vital Signs Temperature 97.2 F L 07/23/16 07:23 Pulse Rate 82 07/22/16 22:00 Respiratory Rate 20 07/23/16 07:23 Blood Pressure 133/58 07/23/16 07:23 O2 Sat by Pulse Oximetry (%) 97 07/22/16 21:00 Renal/: Yes: Bladder Distention Labs: CBC, BMP 07/23/16 06:00 07/23/16 06:00 Imaging - Results Ultrasound: Report Reviewed Problem List - Problems (1) Gross hematuria Assessment/Plan: [address] inserted at bedside. Large amount of mariposa hematuria with clots drained. Bladder irrigated of multiple clots. Plan for CBI. Hold all anticoagulation until gross heme clears Code(s): R31.0 - GROSS HEMATURIA
--- NOTE | 2016-07-23 16:20 | PN ---
Progress Note (short form) - Note Progress Note: Chief Complaint: Events noted, notes reviewed, dyspnea improved, denies any chest pain History of Present Illness: See and examined on . Events noted, notes reviewed, dyspnea improved, denies any chest pain Medications: Current Medications Ascorbic Acid (Vitamin C -) 500 mg PO DAILY [facility] Last Admin: 07/23/16 09:06 Dose: 500 mg Aspirin (Asa -) 81 mg PO DAILY [facility] Last Admin: 07/23/16 09:06 Dose: 81 mg Carvedilol (Coreg -) 3.125 mg PO BID [facility] Last Admin: 07/23/16 09:11 Dose: 3.125 mg Clopidogrel Bisulfate (Plavix -) 75 mg PO DAILY [facility] Last Admin: 07/23/16 09:06 Dose: 75 mg Dutasteride (Avodart -) 0.5 mg PO HS [facility] Last Admin: 07/22/16 21:57 Dose: 0.5 mg Folic Acid (Folic Acid -) 1 mg PO DAILY [facility] Last Admin: 07/23/16 09:06 Dose: 1 mg Furosemide (Lasix Injection -) 40 mg IVPUSH DAILY [facility] Last Admin: 07/23/16 09:07 Dose: 40 mg Heparin Sodium (Porcine) (Heparin -) 5,000 unit SQ BID [facility] Last Admin: 07/23/16 09:07 Dose: 5,000 unit Ceftriaxone Sodium (Rocephin 1gm Ivpb (Pre-Docked)) 50 mls @ 100 mls/hr IVPB DAILY [facility] Last Admin: 07/23/16 09:07 Dose: 100 mls/hr Insulin Aspart (Novolog Vial Sliding Scale -) 1 vial SQ ACHS [facility] PRN Reason: Protocol Last Admin: 07/23/16 06:16 Dose: Not Given Levothyroxine Sodium (Synthroid -) 50 mcg PO AM [facility] Last Admin: 07/23/16 06:16 Dose: 50 mcg Pregabalin (Lyrica -) 50 mg PO DAILY [facility] Last Admin: 07/23/16 09:06 Dose: 50 mg Ranitidine HCl (Zantac -) 150 mg PO BID [facility] Last Admin: 07/23/16 09:07 Dose: 150 mg Tamsulosin HCl (Flomax -) 0.4 mg PO DAILY@0830 [facility] Last Admin: 07/23/16 09:06 Dose: 0.4 mg Vital Signs: Last Vital Signs Temp Pulse Resp BP Pulse Ox 98.4 F 76 20 112/54 97 07/23/16 15:21 07/23/16 15:21 07/23/16 15:21 07/23/16 15:21 07/22/16 21:00 Neck: Supple Negative JVD Respiratory: Diminished Breath Sounds at the Bases Cardiovascular: S! S2 Regular Rate and Rhythm Gastrointestinal: Soft Benign Normal Bowel Sounds Ext: Edema Labs: CBC, BMP 07/23/16 06:00 07/23/16 06:00 Assessment/Plan ASSESSMENT: 1. Pneumonia with left base infiltrate 2. History of UTI 3. CAD post CABG, angina pectoris 4. 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 Post ICD implant with history of VT 6. HTN 7. Diabetes Mellitus 8. Hypercholesterolemia 9. Carotid artery disease 10. PAD post [employer] 11. CKD 12. Anemia PLAN: 1. Antibiotics as per the primary team 2. Continue Carvedilol 3. Continue ASA and Plavix with caution 4. Continue IV Lasix 5. Ideally should be on ACEI or ARBS unless absolutely contraindicated, to be initiated pending renal function stabilization Donnie Carbajal MD
--- NOTE | 2016-07-23 18:40 | PN ---
Progress Note, Physician Chief Complaint: I was called earlier today by pt's nurse that previous nurse tried to get UA UCx early this am via straight cath (the UA UCx order did not specify via straight cath) then pt developed suprapubic pain and hematuria, I advised to hold all anticoagulants and call ; irrigation placed and pt felt better right away; I saw pt in bed felt good no pain, hematuria improved; at bedside, d/w pt and pt's condition; pt and requested to see dr Small vascular sx for PVD (supposed to see him this week in office and have vascular US); legs edema improved; has occasional legs pains with moving - Current Medication List Current Medications: Active Medications Ascorbic Acid (Vitamin C -) 500 mg PO DAILY [facility] Last Admin: 07/23/16 09:06 Dose: 500 mg Aspirin (Asa -) 81 mg PO DAILY [facility] Last Admin: 07/23/16 09:06 Dose: 81 mg Carvedilol (Coreg -) 3.125 mg PO BID [facility] Last Admin: 07/23/16 09:11 Dose: 3.125 mg Clopidogrel Bisulfate (Plavix -) 75 mg PO DAILY [facility] Last Admin: 07/23/16 09:06 Dose: 75 mg Dutasteride (Avodart -) 0.5 mg PO HS [facility] Last Admin: 07/22/16 21:57 Dose: 0.5 mg Folic Acid (Folic Acid -) 1 mg PO DAILY [facility] Last Admin: 07/23/16 09:06 Dose: 1 mg Furosemide (Lasix Injection -) 40 mg IVPUSH DAILY [facility] Last Admin: 07/23/16 09:07 Dose: 40 mg Heparin Sodium (Porcine) (Heparin -) 5,000 unit SQ BID [facility] Last Admin: 07/23/16 09:07 Dose: 5,000 unit Ceftriaxone Sodium (Rocephin 1gm Ivpb (Pre-Docked)) 50 mls @ 100 mls/hr IVPB DAILY [facility] Last Admin: 07/23/16 09:07 Dose: 100 mls/hr Insulin Aspart (Novolog Vial Sliding Scale -) 1 vial SQ ACHS [facility] PRN Reason: Protocol Last Admin: 07/23/16 17:37 Dose: Not Given Levothyroxine Sodium (Synthroid -) 50 mcg PO AM [facility] Last Admin: 07/23/16 06:16 Dose: 50 mcg Pregabalin (Lyrica -) 50 mg PO DAILY [facility] Last Admin: 07/23/16 09:06 Dose: 50 mg Ranitidine HCl (Zantac -) 150 mg PO BID [facility] Last Admin: 07/23/16 09:07 Dose: 150 mg Tamsulosin HCl (Flomax -) 0.4 mg PO DAILY@0830 [facility] Last Admin: 07/23/16 09:06 Dose: 0.4 mg - Objective Vital Signs: Vital Signs Temperature 98.4 F 07/23/16 15:21 Pulse Rate 76 07/23/16 15:21 Respiratory Rate 20 07/23/16 15:21 Blood Pressure 112/54 07/23/16 15:21 O2 Sat by Pulse Oximetry (%) 97 07/23/16 09:00 Constitutional: Yes: No Distress, Calm Eyes: Yes: Conjunctiva Clear HENT: Yes: Atraumatic Neck: Yes: Supple Cardiovascular: Yes: Regular Rate and Rhythm Respiratory: Yes: CTA Bilaterally Gastrointestinal: Yes: Soft. No: Distention, Tenderness Genitourinary: No: CVA Tenderness - Left, CVA Tenderness - Right Musculoskeletal: No: Joint Stiffness, Joint Swelling Extremities: No: Cold, Cool Edema: No Peripheral Pulses WNL: Yes Integumentary: No: Rash, Venous Stasis Changes Neurological: Yes: WNL, Alert, Oriented ...Motor Strength: WNL Psychiatric: Yes: WNL, Alert, Oriented. No: Agitated Labs: CBC, BMP 07/23/16 06:00 07/23/16 06:00 INR, PTT INR 1.23 (0.82-1.09) H 07/21/16 01:25 - ....Imaging Other: Report Reviewed Assessment/Plan 86yo Male patient presented to ED via EMS c/o cough and diff breathing, anxiety , and diminished urine output per . states symptoms began couple days ago continues to worsen. She also notes that patient lower extremities are holding fluid. Patient denies CP, Abd pain, n/v/d, fever, dysuria, hematuria, rectal bleeding, or any other complaints at this time. CXR c/w CHF and LLL PNA; UA c/w UTI High BNP, also mild ARF on CRF, significant BPH but small postvoid residual hematuria after straight cath; bladder irrigation per ; hold all anticoagulants for now d/w pt and risks of DVT PE off AC with bed rest; will mobilize OOB as possible and apply TEDs and SCDs d/w staff also IV lasix; IV ATB cardiology eval vascular sx eval f/u labs and cultures falls DVT aspiration and decubs PFX d/w pt and staff, d/w pt's t time 35
[2016-07-23] MEDS ORDERED: INSULIN (NOVOLOG) ASPART 100 UNITS/ML 10ML VIAL ONE (20:16)
[2016-07-23] MEDS ORDERED: ACETAMINOPHEN 325 MG TABLET (FP) ONE (20:17)
[2016-07-23] MEDS ORDERED: PT OWN MED DRAWER 7, Y5N ONE (20:17)
[2016-07-23] MEDS ORDERED: ACETAMINOPHEN 325 MG TABLET (FP) PO PRN ×2 (21:19→23:21)
[2016-07-23] MEDS ORDERED: SODIUM CHLORIDE NASAL SPRAY 44 ML BOTTLE NS PRN (21:20)
[2016-07-23] MEDS: DUTASTERIDE 0.5 MG CAP (FP) PO SCH (22:09)
[2016-07-23] MEDS ORDERED: oxyCODONE HCL 5 MG TABLET PO PRN (23:21)
[2016-07-24] MEDS ORDERED: ACETAMINOPHEN 325 MG TABLET (FP) PO PRN (00:46)
[2016-07-24] MEDS: LEVOTHYROXINE NA 50 MCG TABLET (FP) PO SCH (06:40)
[2016-07-24] MEDS: INSULIN SLIDING SCALE (NOVOLOG) 1 VIAL SQ SCH ×4 (06:41→21:24)
[2016-07-24 07:25] LABS: BASOPHIL 0.7 % (0-2.0); EOSINOPHIL 1.7 % (0-4.5); MCH 34.4 pg (25.7-33.7); MCHC 33.3 g/dl (32.0-35.9); MEAN CELL VOLUME 103.4 fl (80-96); MEAN PLT VOLUME 10.6 fl (7.5-11.1); NEUTROPHILS 83.8 % (42.8-82.8); PLATELET COUNT 112 K/MM3 (134-434); RDW 15.3 % (11.9-15.9); WHITE BLOOD COUNT 8.4 K/mm3 (4.0-10.0)
[2016-07-24 08:13] LABS: ALBUMIN 3.1 g/dl (3.4-5.0); BILIRUBIN,TOTAL 0.6 mg/dL (0.2-1.0); CALCIUM 8.8 mg/dL (8.5-10.1); CREATININE 1.9 mg/dL (0.7-1.3)
[2016-07-24 08:16] LABS: TOT PROT 6.8 g/dl (6.4-8.2)
[2016-07-24] MEDS: ASCORBIC ACID 500 MG TABLET (FP) PO SCH (09:32)
[2016-07-24] MEDS: FOLIC ACID 1 MG TABLET (FP) PO SCH (09:32)
[2016-07-24] MEDS: RANITIDINE HCL 150 MG TABLET (FP) PO SCH ×2 (09:32→21:25)
[2016-07-24] MEDS: CEFTRIAXONE 50 ML IVPB SCH (09:32)
[2016-07-24] MEDS: CARVEDILOL 3.125 MG TABLET (FP) PO SCH ×2 (09:32→21:24)
[2016-07-24] MEDS: FUROSEMIDE 40 MG TABLET (FP) PO SCH (09:33)
[2016-07-24] MEDS: TAMSULOSIN HCL 0.4 MG CAP.ER.24H (FP) PO SCH (09:33)
[2016-07-24] MEDS: PREGABALIN 50 MG CAPSULE PO SCH (09:33)
--- NOTE | 2016-07-24 11:08 | PN ---
Progress Note (short form) - Note Progress Note: urine clear on CBI several more clots irrigated last night abd soft slow down CBI, eill stop later today if remains clear Problem List - Problems (1) Gross hematuria Code(s): R31.0 - GROSS HEMATURIA
--- NOTE | 2016-07-24 11:54 | PN ---
Progress Note (short form) - Note Progress Note: Chief Complaint: Events noted, notes reviewed, dyspnea continues to improve, denies any chest pain History of Present Illness: See and examined on . Events noted, notes reviewed, dyspnea continues to improve, denies any chest pain Medications: Current Medications Acetaminophen (Tylenol -) 325 mg PO Q12H PRN PRN Reason: PAIN Last Admin: 07/23/16 23:36 Dose: 325 mg Acetaminophen (Tylenol -) 650 mg PO Q6H PRN PRN Reason: FEVER OR PAIN Last Admin: 07/24/16 04:47 Dose: 650 mg Ascorbic Acid (Vitamin C -) 500 mg PO DAILY [facility] Last Admin: 07/24/16 09:32 Dose: 500 mg Aspirin (Asa -) 81 mg PO DAILY [facility] Last Admin: 07/23/16 09:06 Dose: 81 mg Carvedilol (Coreg -) 3.125 mg PO BID [facility] Last Admin: 07/24/16 09:32 Dose: 3.125 mg Clopidogrel Bisulfate (Plavix -) 75 mg PO DAILY [facility] Last Admin: 07/23/16 09:06 Dose: 75 mg Dutasteride (Avodart -) 0.5 mg PO HS [facility] Last Admin: 07/23/16 22:09 Dose: 0.5 mg Folic Acid (Folic Acid -) 1 mg PO DAILY [facility] Last Admin: 07/24/16 09:32 Dose: 1 mg Furosemide (Lasix -) 40 mg PO DAILY [facility] Last Admin: 07/24/16 09:33 Dose: 40 mg Heparin Sodium (Porcine) (Heparin -) 5,000 unit SQ BID [facility] Last Admin: 07/23/16 09:07 Dose: 5,000 unit Ceftriaxone Sodium (Rocephin 1gm Ivpb (Pre-Docked)) 50 mls @ 100 mls/hr IVPB DAILY [facility] Last Admin: 07/24/16 09:32 Dose: 100 mls/hr Insulin Aspart (Novolog Vial Sliding Scale -) 1 vial SQ ACHS [facility] PRN Reason: Protocol Last Admin: 07/24/16 06:41 Dose: 2 units Levothyroxine Sodium (Synthroid -) 50 mcg PO AM [facility] Last Admin: 07/24/16 06:40 Dose: 50 mcg Oxycodone HCl (Roxicodone -) 5 mg PO Q12H PRN PRN Reason: PAIN Last Admin: 07/23/16 23:35 Dose: 5 mg Pregabalin (Lyrica -) 50 mg PO DAILY [facility] Last Admin: 07/24/16 09:33 Dose: 50 mg Ranitidine HCl (Zantac -) 150 mg PO BID [facility] Last Admin: 07/24/16 09:32 Dose: 150 mg Sodium Chloride ([place] Nasal [place] -) 2 spray NS Q4H PRN PRN Reason: NASAL CONGESTION Last Admin: 07/23/16 22:08 Dose: 2 spray Tamsulosin HCl (Flomax -) 0.4 mg PO DAILY@0830 [facility] Last Admin: 07/24/16 09:33 Dose: 0.4 mg Vital Signs: Last Vital Signs Temp Pulse Resp BP Pulse Ox 97.7 F 76 17 127/55 97 07/24/16 09:40 07/24/16 09:40 07/24/16 09:40 07/24/16 09:40 07/23/16 21:00 Neck: Supple Negative JVD Respiratory: Diminished Breath Sounds at the Bases Cardiovascular: S! S2 Regular Rate and Rhythm Gastrointestinal: Soft Benign Normal Bowel Sounds Ext: Edema Labs: CBC, BMP 07/24/16 06:00 07/24/16 06:00 Assessment/Plan ASSESSMENT: 1. Pneumonia with left base infiltrate 2. Hematuria, resolving 3. CAD post CABG, angina pectoris 4. 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 Post ICD implant with history of VT 6. HTN 7. Diabetes Mellitus 8. Hypercholesterolemia 9. 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 CKD 12. Anemia PLAN: 1. Antibiotics as per the primary team 2. Continue Carvedilol 3. Continue ASA and Plavix with caution considering the above noted hematuria 4. Continue PO Lasix 5. Ideally should be on ACEI or ARBS unless absolutely contraindicated, to be initiated pending renal function stabilization Donnie Carbajal MD
[2016-07-24] MEDS ORDERED: SODIUM POLYSTYRENE SULFONATE 15 GM/60 ML BOTTLE PO ONE (13:16)
--- NOTE | 2016-07-24 14:30 | PN ---
Progress Note, Physician Chief Complaint: in bed had a urine clot last night but feels better today; at bedside - Current Medication List Current Medications: Active Medications Acetaminophen (Tylenol -) 325 mg PO Q12H PRN PRN Reason: PAIN Last Admin: 07/23/16 23:36 Dose: 325 mg Acetaminophen (Tylenol -) 650 mg PO Q6H PRN PRN Reason: FEVER OR PAIN Last Admin: 07/24/16 04:47 Dose: 650 mg Ascorbic Acid (Vitamin C -) 500 mg PO DAILY [facility] Last Admin: 07/24/16 09:32 Dose: 500 mg Aspirin (Asa -) 81 mg PO DAILY [facility] Last Admin: 07/23/16 09:06 Dose: 81 mg Carvedilol (Coreg -) 3.125 mg PO BID [facility] Last Admin: 07/24/16 09:32 Dose: 3.125 mg Clopidogrel Bisulfate (Plavix -) 75 mg PO DAILY [facility] Last Admin: 07/23/16 09:06 Dose: 75 mg Dutasteride (Avodart -) 0.5 mg PO HS [facility] Last Admin: 07/23/16 22:09 Dose: 0.5 mg Folic Acid (Folic Acid -) 1 mg PO DAILY [facility] Last Admin: 07/24/16 09:32 Dose: 1 mg Furosemide (Lasix -) 40 mg PO DAILY [facility] Last Admin: 07/24/16 09:33 Dose: 40 mg Heparin Sodium (Porcine) (Heparin -) 5,000 unit SQ BID [facility] Last Admin: 07/23/16 09:07 Dose: 5,000 unit Ceftriaxone Sodium (Rocephin 1gm Ivpb (Pre-Docked)) 50 mls @ 100 mls/hr IVPB DAILY [facility] Last Admin: 07/24/16 09:32 Dose: 100 mls/hr Insulin Aspart (Novolog Vial Sliding Scale -) 1 vial SQ ACHS [facility] PRN Reason: Protocol Last Admin: 07/24/16 12:32 Dose: 4 units Levothyroxine Sodium (Synthroid -) 50 mcg PO AM [facility] Last Admin: 07/24/16 06:40 Dose: 50 mcg Oxycodone HCl (Roxicodone -) 5 mg PO Q12H PRN PRN Reason: PAIN Last Admin: 07/23/16 23:35 Dose: 5 mg Pregabalin (Lyrica -) 50 mg PO DAILY [facility] Last Admin: 07/24/16 09:33 Dose: 50 mg Ranitidine HCl (Zantac -) 150 mg PO BID [facility] Last Admin: 07/24/16 09:32 Dose: 150 mg Sodium Chloride ([place] Nasal [place] -) 2 spray NS Q4H PRN PRN Reason: NASAL CONGESTION Last Admin: 07/23/16 22:08 Dose: 2 spray Tamsulosin HCl (Flomax -) 0.4 mg PO DAILY@0830 [facility] Last Admin: 07/24/16 09:33 Dose: 0.4 mg - Objective Vital Signs: Vital Signs Temperature 97.7 F 07/24/16 09:40 Pulse Rate 76 07/24/16 09:40 Respiratory Rate 17 07/24/16 09:40 Blood Pressure 127/55 07/24/16 09:40 O2 Sat by Pulse Oximetry (%) 98 07/24/16 09:00 Constitutional: Yes: No Distress, Calm Eyes: Yes: Conjunctiva Clear HENT: Yes: Atraumatic Neck: Yes: Supple Cardiovascular: Yes: Regular Rate and Rhythm Respiratory: Yes: CTA Bilaterally Gastrointestinal: No: Soft, Distention, Tenderness Genitourinary: Yes: Hematuria (much better) Musculoskeletal: No: Joint Stiffness, Joint Swelling Extremities: No: Cold, Cool Edema: No Peripheral Pulses WNL: Yes Integumentary: No: Pressure Ulcer, Rash, Venous Stasis Changes Neurological: Yes: WNL, Alert, Oriented ...Motor Strength: WNL Psychiatric: Yes: WNL, Alert, Oriented. No: Agitated, Suicidal Ideation Labs: CBC, BMP 07/24/16 06:00 07/24/16 06:00 INR, PTT INR 1.23 (0.82-1.09) H 07/21/16 01:25 - ....Imaging Other: Report Reviewed Assessment/Plan 86yo Male patient presented to ED via EMS c/o cough and diff breathing, anxiety , and diminished urine output per . states symptoms began couple days ago continues to worsen. She also notes that patient lower extremities are holding fluid. Patient denies CP, Abd pain, n/v/d, fever, dysuria, hematuria, rectal bleeding, or any other complaints at this time. CXR c/w CHF and LLL PNA; UA c/w UTI High BNP, also mild ARF on CRF, significant BPH but small postvoid residual hematuria after straight cath; bladder irrigation per ; hold all anticoagulants for now d/w pt and risks of DVT PE off AC with bed rest; will mobilize OOB as possible and apply TEDs and SCDs d/w staff also po lasix; IV ATB cardiology eval vascular sx eval f/u labs and cultures falls DVT aspiration and decubs PFX d/w pt and staff, d/w pt's
[2016-07-24] MEDS ORDERED: PT OWN MED DRAWER 7, Y5N ONE (20:24)
[2016-07-24] MEDS: DUTASTERIDE 0.5 MG CAP (FP) PO SCH (21:24)
[2016-07-25] MEDS: INSULIN SLIDING SCALE (NOVOLOG) 1 VIAL SQ SCH ×4 (06:02→21:54)
[2016-07-25] MEDS: LEVOTHYROXINE NA 50 MCG TABLET (FP) PO SCH (06:02)
[2016-07-25 08:03] LABS: BASOPHIL 0.8 % (0-2.0); EOSINOPHIL 2.3 % (0-4.5); MCH 34.5 pg (25.7-33.7); MCHC 33.5 g/dl (32.0-35.9); MEAN CELL VOLUME 102.9 fl (80-96); MEAN PLT VOLUME 10.2 fl (7.5-11.1); NEUTROPHILS 77.9 % (42.8-82.8); PLATELET COUNT 115 K/MM3 (134-434); RDW 15.2 % (11.9-15.9); WHITE BLOOD COUNT 7.9 K/mm3 (4.0-10.0)
[2016-07-25 08:23] LABS: CALCIUM 8.5 mg/dL (8.5-10.1); CREATININE 1.7 mg/dL (0.7-1.3)
[2016-07-25] MEDS ORDERED: PT OWN MED DRAWER 7, Y5N ONE (09:24)
[2016-07-25] MEDS: CEFTRIAXONE 50 ML IVPB SCH (09:28)
[2016-07-25] MEDS: CARVEDILOL 3.125 MG TABLET (FP) PO SCH ×2 (09:29→21:53)
[2016-07-25] MEDS: TAMSULOSIN HCL 0.4 MG CAP.ER.24H (FP) PO SCH (09:29)
[2016-07-25] MEDS: ASCORBIC ACID 500 MG TABLET (FP) PO SCH (09:29)
[2016-07-25] MEDS: PREGABALIN 50 MG CAPSULE PO SCH (09:29)
[2016-07-25] MEDS: FOLIC ACID 1 MG TABLET (FP) PO SCH (09:29)
[2016-07-25] MEDS: FUROSEMIDE 40 MG TABLET (FP) PO SCH (09:29)
[2016-07-25] MEDS: RANITIDINE HCL 150 MG TABLET (FP) PO SCH ×2 (09:30→21:53)
--- NOTE | 2016-07-25 12:18 | PN ---
Progress Note, Physician History of Present Illness: Undergoing CBI with urinary clot irrigated with relief, dyspnea improving. - Current Medication List Current Medications: Active Medications Acetaminophen (Tylenol -) 325 mg PO Q12H PRN PRN Reason: PAIN Last Admin: 07/23/16 23:36 Dose: 325 mg Acetaminophen (Tylenol -) 650 mg PO Q6H PRN PRN Reason: FEVER OR PAIN Last Admin: 07/24/16 04:47 Dose: 650 mg Ascorbic Acid (Vitamin C -) 500 mg PO DAILY [facility] Last Admin: 07/25/16 09:29 Dose: 500 mg Aspirin (Asa -) 81 mg PO DAILY [facility] Last Admin: 07/23/16 09:06 Dose: 81 mg Carvedilol (Coreg -) 3.125 mg PO BID [facility] Last Admin: 07/25/16 09:29 Dose: 3.125 mg Clopidogrel Bisulfate (Plavix -) 75 mg PO DAILY [facility] Last Admin: 07/23/16 09:06 Dose: 75 mg Dutasteride (Avodart -) 0.5 mg PO HS [facility] Last Admin: 07/24/16 21:24 Dose: 0.5 mg Folic Acid (Folic Acid -) 1 mg PO DAILY [facility] Last Admin: 07/25/16 09:29 Dose: 1 mg Furosemide (Lasix -) 40 mg PO DAILY [facility] Last Admin: 07/25/16 09:29 Dose: 40 mg Heparin Sodium (Porcine) (Heparin -) 5,000 unit SQ BID [facility] Last Admin: 07/23/16 09:07 Dose: 5,000 unit Ceftriaxone Sodium (Rocephin 1gm Ivpb (Pre-Docked)) 50 mls @ 100 mls/hr IVPB DAILY [facility] Last Admin: 07/25/16 09:28 Dose: 100 mls/hr Insulin Aspart (Novolog Vial Sliding Scale -) 1 vial SQ ACHS [facility] PRN Reason: Protocol Last Admin: 07/25/16 06:02 Dose: Not Given Levothyroxine Sodium (Synthroid -) 50 mcg PO AM [facility] Last Admin: 07/25/16 06:02 Dose: 50 mcg Oxycodone HCl (Roxicodone -) 5 mg PO Q12H PRN PRN Reason: PAIN Last Admin: 07/23/16 23:35 Dose: 5 mg Pregabalin (Lyrica -) 50 mg PO DAILY [facility] Last Admin: 07/25/16 09:29 Dose: 50 mg Ranitidine HCl (Zantac -) 150 mg PO BID [facility] Last Admin: 07/25/16 09:30 Dose: 150 mg Sodium Chloride ([place] Nasal [place] -) 2 spray NS Q4H PRN PRN Reason: NASAL CONGESTION Last Admin: 07/23/16 22:08 Dose: 2 spray Tamsulosin HCl (Flomax -) 0.4 mg PO DAILY@0830 [facility] Last Admin: 07/25/16 09:29 Dose: 0.4 mg - Objective Vital Signs: Vital Signs Temperature 98.0 F 07/25/16 05:46 Pulse Rate 76 07/25/16 05:46 Respiratory Rate 18 07/25/16 05:46 Blood Pressure 96/59 07/25/16 05:46 O2 Sat by Pulse Oximetry (%) 98 07/25/16 09:00 Constitutional: Yes: No Distress, Calm Neck: Yes: Supple Cardiovascular: Yes: Regular Rate and Rhythm Respiratory: Yes: Regular, Diminished, On Nasal O2 Gastrointestinal: Yes: Normal Bowel Sounds, Soft Edema: No Labs: CBC, BMP 07/25/16 06:05 07/25/16 06:05 INR, PTT INR 1.23 (0.82-1.09) H 07/21/16 01:25 Problem List - Problems (1) Gross hematuria Code(s): R31.0 - GROSS HEMATURIA (2) ASHD (arteriosclerotic heart disease) Code(s): I25.10 - ATHSCL HEART DISEASE OF [place] CORONARY ARTERY W/O ANG PCTRS (3) Anemia Code(s): D64.9 - ANEMIA, UNSPECIFIED Qualifiers: Anemia type: unspecified type Qualified Code(s): D64.9 - Anemia, unspecified (4) COPD (chronic obstructive pulmonary disease) Code(s): J44.9 - CHRONIC OBSTRUCTIVE PULMONARY DISEASE, UNSPECIFIED Qualifiers : COPD type: chronic bronchitis (5) Chronic renal failure Code(s): N18.9 - CHRONIC KIDNEY DISEASE, UNSPECIFIED (6) Diabetes mellitus Code(s): E11.9 - TYPE 2 DIABETES MELLITUS WITHOUT COMPLICATIONS Qualifiers: Diabetes mellitus type: type 2 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) (7) Dyspnea Code(s): R06.00 - DYSPNEA, UNSPECIFIED Qualifiers: Dyspnea type: dyspnea on exertion Qualified Code(s): R06.09 - Other forms of dyspnea (8) Hx of CABG Code(s): Z95.1 - PRESENCE OF AORTOCORONARY BYPASS GRAFT (9) ICD (implantable cardioverter-defibrillator) in place Code(s): Z95.810 - PRESENCE OF AUTOMATIC (IMPLANTABLE) CARDIAC DEFIBRILLATOR (10) Peripheral arterial disease Code(s): I73.9 - PERIPHERAL VASCULAR DISEASE, UNSPECIFIED (11) Urinary retention Code(s): R33.9 - RETENTION OF URINE, UNSPECIFIED (12) 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 Pneumonia with left base infiltrate 2. Hematuria, resolving 3. CAD post CABG, angina pectoris 4. 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 Post ICD implant with history of VT 6. HTN 7. Diabetes Mellitus 8. Hypercholesterolemia 9. Carotid artery disease 10. PAD post [employer] 11. CKD 12. Anemia 13. Hypothyroidism PLAN: 1. Antibiotic course per primary team 2. Continue Carvedilol .125 bid 3. Continue ASA 81 qd and Plavix 75 qd with caution considering the above noted hematuria, CBI drainage with eventual voiding trial 4. Continue PO Lasix 40 qd 5. Ideally should be on ACEI or ARBS unless absolutely contraindicated, to be initiated pending renal function stabilization 6. GI and DVT prophylaxis
--- NOTE | 2016-07-25 16:55 | PN ---
Progress Note (short form) - Note Progress Note: urine clear off CBI abd soft d/c pulliam in am tomorrow Problem List - Problems (1) Gross hematuria Code(s): R31.0 - GROSS HEMATURIA
--- NOTE | 2016-07-25 17:32 | CONSULT ---
Consult Consult Specialty:: Vascular surgery - History of Present Illness History of Present Illness: 86 year old male with history of severe PAD, s/p left leg bypass and TMA in past. Patient followed in my office regularly. He offers no complaints of leg pain. He was admitted with bilateral leg swelling and blister on left helms. Swelling has improved. - Past Medical History Cardio/Vascular: Yes: CAD, HTN, Other (ASHD, AICD, CABG). No: AFIB Pulmonary: Yes: COPD Gastrointestinal: Yes: Other (recent C diff colitis, gallstones, chronic cholecystitis) Renal/: Yes: Renal Failure (had ARF last month in September creat bumped to 2), BPH, Renal Calculi Infectious Disease: Yes: C-Diff Musculoskeletal: Yes: Other (L foot wound s/p partial amputation) Endocrine: Yes: Diabetes Mellitus, Other (diabetic neuropathy) - Past Surgical History Past Surgical History: Yes: AICD, Amputation (TMA), Bypass, CABG - Alcohol/Substance Use Hx Alcohol Use: No History of Substance Use: reports: None - Smoking History Smoking history: Former smoker Have you smoked in the past 12 months: No Aproximately how many cigarettes per day: 0 If you are a former smoker, when did you quit?: 2009 - Social History Usual Living Arrangement: With Spouse ADL: Family Assistance History of Recent Travel: No Home Medications - Allergies Allergies/Adverse Reactions: Allergies Allergy/AdvReac Type Severity Reaction Status Date / Time No Known Allergies Allergy Verified 10/25/15 16:09 - Home Medications Home Medications: Ambulatory Orders Ascorbate Calcium [Vitamin C] 500 mg PO DAILY 01/20/14 Aspirin [ASA -] 81 mg PO DAILY 01/20/14 Carvedilol 3.125 mg PO BID 01/20/14 Clopidogrel Bisulfate [Plavix -] 75 mg PO DAILY 01/20/14 Dutasteride [Avodart] 0.5 mg PO HS 01/20/14 Folic Acid - 1 mg PO DAILY 01/20/14 Levothyroxine [Synthroid -] 50 mcg PO ASDIR 01/20/14 Pregabalin [Lyrica -] 50 mg PO DAILY 01/20/14 Ranitidine HCl [Zantac] 150 mg PO BID 01/20/14 Tamsulosin HCl [Flomax -] 0.4 mg PO DAILY 01/20/14 Furosemide [Lasix -] 20 mg PO DAILY 10/25/15 Magnesium 200 mg PO DAILY 10/25/15 Insulin Glargine,Hum.rec.anlog [Lantus Solostar PEN (NF)] 10 units SQ HS Levothyroxine [Synthroid -] 75 mcg PO ASDIR 07/21/16 Family Disease History - Family Disease History Family Disease History: Heart Disease: Mother, Brother (liver CA), CA: Brother Physical Exam Vital Signs: Vital Signs Temperature 97.8 F 07/25/16 17:22 Pulse Rate 68 07/25/16 17:22 Respiratory Rate 18 07/25/16 17:22 Blood Pressure 105/52 07/25/16 17:22 O2 Sat by Pulse Oximetry (%) 98 07/25/16 09:00 Constitutional: Yes: No Distress Extremities: Yes: Other (No edema. Small open blister wound on left helms, no erythema. Two small eschar on distal leg. Foot warm. No open foot ulcers.) Labs: CBC, BMP 07/25/16 06:05 07/25/16 06:05 Problem List - Problems (1) Peripheral arterial disease Assessment/Plan: No evidence for any significant change in distal arterial flow. Edema and blisters are due to systemic disease/fluid overlaod which now appears resolved. I would avoid tight stockings and SCD in this patient. Bacitracin ointment to open wound daily until healed. Code(s): I73.9 - PERIPHERAL VASCULAR DISEASE, UNSPECIFIED
[2016-07-25] MEDS: BACITRACIN 30 GM TUBE TOPICAL OINTMENT TP SCH (17:59)
[2016-07-25] MEDS: DUTASTERIDE 0.5 MG CAP (FP) PO SCH (21:54)
--- NOTE | 2016-07-25 23:00 | PN ---
Progress Note, Physician Chief Complaint: in bed no new co, no bleed - Current Medication List Current Medications: Active Medications Acetaminophen (Tylenol -) 325 mg PO Q12H PRN PRN Reason: PAIN Last Admin: 07/23/16 23:36 Dose: 325 mg Acetaminophen (Tylenol -) 650 mg PO Q6H PRN PRN Reason: FEVER OR PAIN Last Admin: 07/24/16 04:47 Dose: 650 mg Ascorbic Acid (Vitamin C -) 500 mg PO DAILY [facility] Last Admin: 07/25/16 09:29 Dose: 500 mg Aspirin (Asa -) 81 mg PO DAILY [facility] Last Admin: 07/23/16 09:06 Dose: 81 mg Bacitracin (Bacitracin -) 1 applic TP DAILY [facility] Last Admin: 07/25/16 17:59 Dose: 1 applic Carvedilol (Coreg -) 3.125 mg PO BID [facility] Last Admin: 07/25/16 21:53 Dose: 3.125 mg Clopidogrel Bisulfate (Plavix -) 75 mg PO DAILY [facility] Last Admin: 07/23/16 09:06 Dose: 75 mg Dutasteride (Avodart -) 0.5 mg PO HS [facility] Last Admin: 07/25/16 21:54 Dose: 0.5 mg Folic Acid (Folic Acid -) 1 mg PO DAILY [facility] Last Admin: 07/25/16 09:29 Dose: 1 mg Furosemide (Lasix -) 40 mg PO DAILY [facility] Last Admin: 07/25/16 09:29 Dose: 40 mg Heparin Sodium (Porcine) (Heparin -) 5,000 unit SQ BID [facility] Last Admin: 07/23/16 09:07 Dose: 5,000 unit Ceftriaxone Sodium (Rocephin 1gm Ivpb (Pre-Docked)) 50 mls @ 100 mls/hr IVPB DAILY [facility] Last Admin: 07/25/16 09:28 Dose: 100 mls/hr Insulin Aspart (Novolog Vial Sliding Scale -) 1 vial SQ ACHS [facility] PRN Reason: Protocol Last Admin: 07/25/16 21:54 Dose: 4 units Levothyroxine Sodium (Synthroid -) 50 mcg PO AM [facility] Last Admin: 07/25/16 06:02 Dose: 50 mcg Oxycodone HCl (Roxicodone -) 5 mg PO Q12H PRN PRN Reason: PAIN Last Admin: 07/23/16 23:35 Dose: 5 mg Pregabalin (Lyrica -) 50 mg PO DAILY [facility] Last Admin: 07/25/16 09:29 Dose: 50 mg Ranitidine HCl (Zantac -) 150 mg PO BID [facility] Last Admin: 07/25/16 21:53 Dose: 150 mg Sodium Chloride ([place] Nasal [place] -) 2 spray NS Q4H PRN PRN Reason: NASAL CONGESTION Last Admin: 07/23/16 22:08 Dose: 2 spray Tamsulosin HCl (Flomax -) 0.4 mg PO DAILY@0830 [facility] Last Admin: 07/25/16 09:29 Dose: 0.4 mg - Objective Vital Signs: Vital Signs Temperature 97.8 F 07/25/16 17:22 Pulse Rate 68 07/25/16 17:22 Respiratory Rate 18 07/25/16 17:22 Blood Pressure 105/52 07/25/16 17:22 O2 Sat by Pulse Oximetry (%) 98 07/25/16 09:00 Constitutional: Yes: No Distress Eyes: Yes: Conjunctiva Clear HENT: Yes: Atraumatic Neck: Yes: Supple Cardiovascular: Yes: Regular Rate and Rhythm Respiratory: Yes: CTA Bilaterally Gastrointestinal: Yes: Soft. No: Distention, Tenderness Genitourinary: No: Hematuria Musculoskeletal: No: Joint Stiffness, Joint Swelling Extremities: No: Cold, Cool Edema: No Peripheral Pulses WNL: Yes Neurological: Yes: WNL, Alert, Oriented ...Motor Strength: WNL Psychiatric: Yes: WNL, Alert, Oriented. No: Agitated Labs: CBC, BMP 07/25/16 06:05 07/25/16 06:05 INR, PTT INR 1.23 (0.82-1.09) H 07/21/16 01:25 - ....Imaging Other: Report Reviewed Assessment/Plan 86yo Male patient presented to ED via EMS c/o cough and diff breathing, anxiety , and diminished urine output per . states symptoms began couple days ago continues to worsen. She also notes that patient lower extremities are holding fluid. Patient denies CP, Abd pain, n/v/d, fever, dysuria, hematuria, rectal bleeding, or any other complaints at this time. CXR c/w CHF and LLL PNA; UA c/w UTI High BNP, also mild ARF on CRF, significant BPH but small postvoid residual hematuria after straight cath; bladder irrigation per ; hold all anticoagulants for now d/w pt and risks of DVT PE off AC with bed rest; will mobilize OOB as possible and apply TEDs and SCDs d/w staff also po lasix; IV ATB cardiology eval vascular sx eval f/u labs and cultures falls DVT aspiration and decubs PFX d/w pt and staff
[2016-07-26] MEDS: INSULIN SLIDING SCALE (NOVOLOG) 1 VIAL SQ SCH ×4 (06:02→21:40)
[2016-07-26] MEDS: LEVOTHYROXINE NA 50 MCG TABLET (FP) PO SCH (06:02)
[2016-07-26 06:51] LABS: BASOPHIL 0.7 % (0-2.0); EOSINOPHIL 4.3 % (0-4.5); MCH 34.5 pg (25.7-33.7); MCHC 33.3 g/dl (32.0-35.9); MEAN CELL VOLUME 103.6 fl (80-96); MEAN PLT VOLUME 10.1 fl (7.5-11.1); NEUTROPHILS 71.1 % (42.8-82.8); PLATELET COUNT 108 K/MM3 (134-434); RDW 14.9 % (11.9-15.9); WHITE BLOOD COUNT 6.3 K/mm3 (4.0-10.0)
[2016-07-26 08:13] LABS: CALCIUM 8.2 mg/dL (8.5-10.1); CREATININE 1.8 mg/dL (0.7-1.3)
--- NOTE | 2016-07-26 08:52 | PN ---
Progress Note (short form) - Note Progress Note: pulliam removed has voided x 1 grossly clear may resume anticoagulation Problem List - Problems (1) Gross hematuria Code(s): R31.0 - GROSS HEMATURIA
[2016-07-26] MEDS: FUROSEMIDE 40 MG TABLET (FP) PO SCH (09:37)
[2016-07-26] MEDS: TAMSULOSIN HCL 0.4 MG CAP.ER.24H (FP) PO SCH (09:37)
[2016-07-26] MEDS: CARVEDILOL 3.125 MG TABLET (FP) PO SCH ×2 (09:37→21:40)
[2016-07-26] MEDS: CEFTRIAXONE 50 ML IVPB SCH (09:37)
[2016-07-26] MEDS: PREGABALIN 50 MG CAPSULE PO SCH (09:37)
[2016-07-26] MEDS: FOLIC ACID 1 MG TABLET (FP) PO SCH (09:38)
[2016-07-26] MEDS: RANITIDINE HCL 150 MG TABLET (FP) PO SCH ×2 (09:38→21:41)
[2016-07-26] MEDS: ASCORBIC ACID 500 MG TABLET (FP) PO SCH (09:38)
[2016-07-26] MEDS: BACITRACIN 30 GM TUBE TOPICAL OINTMENT TP SCH (09:39)
--- NOTE | 2016-07-26 10:23 | PN ---
Progress Note, Physician Chief Complaint: in bed nad feels better - Current Medication List Current Medications: Active Medications Acetaminophen (Tylenol -) 325 mg PO Q12H PRN PRN Reason: PAIN Last Admin: 07/23/16 23:36 Dose: 325 mg Acetaminophen (Tylenol -) 650 mg PO Q6H PRN PRN Reason: FEVER OR PAIN Last Admin: 07/24/16 04:47 Dose: 650 mg Ascorbic Acid (Vitamin C -) 500 mg PO DAILY [facility] Last Admin: 07/26/16 09:38 Dose: 500 mg Aspirin (Asa -) 81 mg PO DAILY [facility] Last Admin: 07/23/16 09:06 Dose: 81 mg Bacitracin (Bacitracin -) 1 applic TP DAILY [facility] Last Admin: 07/26/16 09:39 Dose: 1 applic Carvedilol (Coreg -) 3.125 mg PO BID [facility] Last Admin: 07/26/16 09:37 Dose: 3.125 mg Clopidogrel Bisulfate (Plavix -) 75 mg PO DAILY [facility] Last Admin: 07/23/16 09:06 Dose: 75 mg Dutasteride (Avodart -) 0.5 mg PO HS [facility] Last Admin: 07/25/16 21:54 Dose: 0.5 mg Folic Acid (Folic Acid -) 1 mg PO DAILY [facility] Last Admin: 07/26/16 09:38 Dose: 1 mg Furosemide (Lasix -) 40 mg PO DAILY [facility] Last Admin: 07/26/16 09:37 Dose: 40 mg Heparin Sodium (Porcine) (Heparin -) 5,000 unit SQ BID [facility] Last Admin: 07/23/16 09:07 Dose: 5,000 unit Insulin Aspart (Novolog Vial Sliding Scale -) 1 vial SQ ACHS [facility] PRN Reason: Protocol Last Admin: 07/26/16 06:02 Dose: Not Given Levothyroxine Sodium (Synthroid -) 50 mcg PO AM [facility] Last Admin: 07/26/16 06:02 Dose: 50 mcg Oxycodone HCl (Roxicodone -) 5 mg PO Q12H PRN PRN Reason: PAIN Last Admin: 07/23/16 23:35 Dose: 5 mg Pregabalin (Lyrica -) 50 mg PO DAILY [facility] Last Admin: 07/26/16 09:37 Dose: 50 mg Ranitidine HCl (Zantac -) 150 mg PO BID [facility] Last Admin: 07/26/16 09:38 Dose: 150 mg Sodium Chloride ([place] Nasal [place] -) 2 spray NS Q4H PRN PRN Reason: NASAL CONGESTION Last Admin: 07/23/16 22:08 Dose: 2 spray Tamsulosin HCl (Flomax -) 0.4 mg PO DAILY@0830 [facility] Last Admin: 07/26/16 09:37 Dose: 0.4 mg - Objective Vital Signs: Vital Signs Temperature 97.9 F 07/26/16 06:00 Pulse Rate 67 07/26/16 06:00 Respiratory Rate 20 07/26/16 06:00 Blood Pressure 120/58 07/26/16 06:00 O2 Sat by Pulse Oximetry (%) 98 07/25/16 21:00 Constitutional: Yes: No Distress, Calm Eyes: Yes: Conjunctiva Clear HENT: Yes: Atraumatic Neck: Yes: Supple Cardiovascular: Yes: Regular Rate and Rhythm Respiratory: Yes: CTA Bilaterally Gastrointestinal: Yes: Soft. No: Distention, Tenderness Musculoskeletal: No: Joint Stiffness, Joint Swelling Extremities: No: Cold, Cool Edema: No Peripheral Pulses WNL: Yes Integumentary: No: Pressure Ulcer, Venous Stasis Changes Neurological: Yes: WNL, Alert, Oriented ...Motor Strength: WNL Psychiatric: Yes: WNL, Alert, Oriented. No: Agitated Labs: CBC, BMP 07/26/16 05:35 07/26/16 05:35 INR, PTT INR 1.23 (0.82-1.09) H 07/21/16 01:25 - ....Imaging Other: Report Reviewed Assessment/Plan 86yo Male patient presented to ED via EMS c/o cough and diff breathing, anxiety , and diminished urine output per . states symptoms began couple days ago continues to worsen. She also notes that patient lower extremities are holding fluid. Patient denies CP, Abd pain, n/v/d, fever, dysuria, hematuria, rectal bleeding, or any other complaints at this time. CXR c/w CHF and LLL PNA; UA c/w UTI High BNP, also mild ARF on CRF, significant BPH but small postvoid residual hematuria after straight cath; bladder irrigation per ; hold all anticoagulants for now d/w pt and risks of DVT PE off AC with bed rest; will mobilize OOB as possible and apply TEDs and SCDs d/w staff also po lasix; IV ATB cardiology eval vascular sx eval f/u labs and cultures falls DVT aspiration and decubs PFX d/w pt and staff
[2016-07-26] MEDS ORDERED: INSULIN (NOVOLOG) ASPART 100 UNITS/ML 10ML VIAL ONE (12:21)
--- NOTE | 2016-07-26 19:18 | PN ---
Progress Note, Physician Chief Complaint: Not in distress History of Present Illness: Patient was seen and examined. Awake and alert. Chart was reviewed Feels better Denies chest pain, SOB or palpitations - Current Medication List Current Medications: Active Medications Acetaminophen (Tylenol -) 325 mg PO Q12H PRN PRN Reason: PAIN Last Admin: 07/23/16 23:36 Dose: 325 mg Acetaminophen (Tylenol -) 650 mg PO Q6H PRN PRN Reason: FEVER OR PAIN Last Admin: 07/24/16 04:47 Dose: 650 mg Ascorbic Acid (Vitamin C -) 500 mg PO DAILY [facility] Last Admin: 07/26/16 09:38 Dose: 500 mg Aspirin (Asa -) 81 mg PO DAILY [facility] Last Admin: 07/23/16 09:06 Dose: 81 mg Bacitracin (Bacitracin -) 1 applic TP DAILY [facility] Last Admin: 07/26/16 09:39 Dose: 1 applic Carvedilol (Coreg -) 3.125 mg PO BID [facility] Last Admin: 07/26/16 09:37 Dose: 3.125 mg Clopidogrel Bisulfate (Plavix -) 75 mg PO DAILY [facility] Last Admin: 07/23/16 09:06 Dose: 75 mg Dutasteride (Avodart -) 0.5 mg PO HS [facility] Last Admin: 07/25/16 21:54 Dose: 0.5 mg Folic Acid (Folic Acid -) 1 mg PO DAILY [facility] Last Admin: 07/26/16 09:38 Dose: 1 mg Furosemide (Lasix -) 40 mg PO DAILY [facility] Last Admin: 07/26/16 09:37 Dose: 40 mg Heparin Sodium (Porcine) (Heparin -) 5,000 unit SQ BID [facility] Last Admin: 07/23/16 09:07 Dose: 5,000 unit Insulin Aspart (Novolog Vial Sliding Scale -) 1 vial SQ ACHS [facility] PRN Reason: Protocol Last Admin: 07/26/16 18:00 Dose: Not Given Levothyroxine Sodium (Synthroid -) 50 mcg PO AM [facility] Last Admin: 07/26/16 06:02 Dose: 50 mcg Oxycodone HCl (Roxicodone -) 5 mg PO Q12H PRN PRN Reason: PAIN Last Admin: 07/23/16 23:35 Dose: 5 mg Pregabalin (Lyrica -) 50 mg PO DAILY [facility] Last Admin: 07/26/16 09:37 Dose: 50 mg Ranitidine HCl (Zantac -) 150 mg PO BID [facility] Last Admin: 07/26/16 09:38 Dose: 150 mg Sodium Chloride ([place] Nasal [place] -) 2 spray NS Q4H PRN PRN Reason: NASAL CONGESTION Last Admin: 07/23/16 22:08 Dose: 2 spray Tamsulosin HCl (Flomax -) 0.4 mg PO DAILY@0830 [facility] Last Admin: 07/26/16 09:37 Dose: 0.4 mg - Objective Vital Signs: Vital Signs Temperature 97.9 F 07/26/16 19:10 Pulse Rate 81 07/26/16 19:10 Respiratory Rate 20 07/26/16 19:10 Blood Pressure 117/85 07/26/16 19:10 O2 Sat by Pulse Oximetry (%) 95 07/26/16 13:50 Neck: Yes: Supple Cardiovascular: Yes: Regular Rate and Rhythm, S1, S2 Respiratory: Yes: CTA Bilaterally Gastrointestinal: Yes: Normal Bowel Sounds, Soft. No: Tenderness Extremities: Yes: Amputation Edema: No Labs: CBC, BMP 07/26/16 05:35 07/26/16 05:35 Problem List - Problems (1) CHF (congestive heart failure) Code(s): I50.9 - HEART FAILURE, UNSPECIFIED Qualifiers: Congestive heart failure type: unspecified congestive heart failure type Congestive heart failure chronicity: acute on chronic Qualified Code(s ): I50.9 - Heart failure, unspecified (2) ASHD (arteriosclerotic heart disease) Code(s): I25.10 - ATHSCL HEART DISEASE OF [place] CORONARY ARTERY W/O ANG PCTRS (3) Anemia Code(s): D64.9 - ANEMIA, UNSPECIFIED Qualifiers: Anemia type: unspecified type Qualified Code(s): D64.9 - Anemia, unspecified (4) COPD (chronic obstructive pulmonary disease) Code(s): J44.9 - CHRONIC OBSTRUCTIVE PULMONARY DISEASE, UNSPECIFIED Qualifiers : COPD type: chronic bronchitis (5) Diabetes mellitus Code(s): E11.9 - TYPE 2 DIABETES MELLITUS WITHOUT COMPLICATIONS Qualifiers: Diabetes mellitus type: type 2 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) (6) Hx of CABG Code(s): Z95.1 - PRESENCE OF AORTOCORONARY BYPASS GRAFT (7) Hypothyroidism Code(s): E03.9 - HYPOTHYROIDISM, UNSPECIFIED Qualifiers: Hypothyroidism type: unspecified Qualified Code(s): E03.9 - Hypothyroidism, unspecified (8) ICD (implantable cardioverter-defibrillator) in place Code(s): Z95.810 - PRESENCE OF AUTOMATIC (IMPLANTABLE) CARDIAC DEFIBRILLATOR (9) Peripheral arterial disease Code(s): I73.9 - PERIPHERAL VASCULAR DISEASE, UNSPECIFIED (10) Pneumonia Code(s): J18.9 - PNEUMONIA, UNSPECIFIED ORGANISM Qualifiers: Laterality: bilateral (11) Systolic dysfunction with acute on chronic heart failure Code(s): I50.23 - ACUTE ON CHRONIC SYSTOLIC (CONGESTIVE) HEART FAILURE (12) Urinary tract infection Code(s): N39.0 - URINARY TRACT INFECTION, SITE NOT SPECIFIED Qualifiers: Urinary tract infection type: site unspecified Hematuria presence: without hematuria Qualified Code(s): N39.0 - Urinary tract infection, site not specified Assessment/Plan 1. Pneumonia with left base infiltrate - clinically improving 2. History of UTI 3. CAD s/p CABG, angina 4. LV systolic dysfunction with history of failure 5. Post ICD implant with history of VT 6. HTN/HCVD 7. Hypercholesterolemia 8. Diabetes Mellitus 9. PVD post [employer], TMA 10. Carotid artery disease PLAN: 1. Continue Carvedilol. Ideally ACEI or ARB if renal function stabilizes and BP tolerates 2. ASA and Plavix 3. Diuretics (PO Lasix) 4. input noted 5. DVT prophylaxis Further plans are to follow Keyon Fair MD
[2016-07-26] MEDS: DUTASTERIDE 0.5 MG CAP (FP) PO SCH (21:39)
[2016-07-27] MEDS: LEVOTHYROXINE NA 50 MCG TABLET (FP) PO SCH (06:15)
[2016-07-27] MEDS: INSULIN SLIDING SCALE (NOVOLOG) 1 VIAL SQ SCH ×2 (06:15→11:16)
[2016-07-27 07:44] LABS: BASOPHIL 0.8 % (0-2.0); EOSINOPHIL 5.4 % (0-4.5); MCH 34.4 pg (25.7-33.7); MCHC 33.3 g/dl (32.0-35.9); MEAN CELL VOLUME 103.3 fl (80-96); MEAN PLT VOLUME 9.7 fl (7.5-11.1); NEUTROPHILS 70.5 % (42.8-82.8); PLATELET COUNT 120 K/MM3 (134-434); RDW 15.4 % (11.9-15.9)
[2016-07-27 08:09] LABS: CALCIUM 8.5 mg/dL (8.5-10.1); CREATININE 1.8 mg/dL (0.7-1.3)
[2016-07-27] MEDS: TAMSULOSIN HCL 0.4 MG CAP.ER.24H (FP) PO SCH (08:21)
[2016-07-27] MEDS: CLOPIDOGREL BISULFATE 75 MG TABLET (FP) PO SCH (09:58)
[2016-07-27] MEDS: FOLIC ACID 1 MG TABLET (FP) PO SCH (09:58)
[2016-07-27] MEDS: CARVEDILOL 3.125 MG TABLET (FP) PO SCH (09:58)
[2016-07-27] MEDS: ASPIRIN 81 MG CHEWABLE TABLETS PO SCH (09:58)
[2016-07-27] MEDS: PREGABALIN 50 MG CAPSULE PO SCH (09:59)
[2016-07-27] MEDS: RANITIDINE HCL 150 MG TABLET (FP) PO SCH (09:59)
[2016-07-27] MEDS: FUROSEMIDE 40 MG TABLET (FP) PO SCH (09:59)
[2016-07-27] MEDS: ASCORBIC ACID 500 MG TABLET (FP) PO SCH (09:59)
[2016-07-27] MEDS: HEPARIN NA (PORCINE) 5,000 UNITS/ML 1ML VIAL SQ SCH (10:07)
[2016-07-27] MEDS: BACITRACIN 30 GM TUBE TOPICAL OINTMENT TP SCH (10:08)
[2016-07-27] MEDS ORDERED: INSULIN (NOVOLOG) ASPART 100 UNITS/ML 10ML VIAL ONE (11:13)
--- NOTE | 2016-07-27 11:58 | DS ---
Physical Examination Vital Signs: Vital Signs Temperature 97.8 F 07/27/16 08:30 Pulse Rate 66 07/27/16 08:30 Respiratory Rate 20 07/27/16 08:30 Blood Pressure 128/61 07/27/16 08:30 O2 Sat by Pulse Oximetry (%) 99 07/27/16 09:00 Findings/Remarks: in bed feels well, needs O2 NC when OOB but not at rest; d/w pt and ; also d/w them about lasix DOSE, f/u needed and instructions T time 40 min; d/w pt's PCP dr Kirk ALSO Constitutional: Yes: No Distress, Calm Eyes: Yes: Conjunctiva Clear HENT: Yes: Atraumatic Neck: Yes: Supple Cardiovascular: Yes: Regular Rate and Rhythm Respiratory: Yes: CTA Bilaterally Gastrointestinal: Yes: Soft. No: Distention, Tenderness Renal/: No: CVA Tenderness - Left, CVA Tenderness - Right Musculoskeletal: No: Joint Stiffness, Joint Swelling Extremities: No: Cold, Cool Edema: No Peripheral Pulses WNL: Yes Integumentary: No: Pressure Ulcer, Rash, Venous Stasis Changes Neurological: Yes: WNL, Alert, Oriented ...Motor Strength: WNL Psychiatric: Yes: WNL, Alert, Oriented. 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 developed hematuria, seen by ; had bladder irrigation and improved Hospital Course: improved with above; Needs Home O2 when OOB see DC instructions d/w pt and Condition: Stable - Instructions Diet, Activity, Other Instructions: f.u PCP and labs CBC CMP in 1 week f/u vascular sx, cardiology and outpt to see renal dr Madrid for CRF outpt to see pulm dr SEAY outpt for COPD O2 dep falls PFX RTER if worse or recurrent c/o to take lasix 20 mg/day; check weight daily; can take 40 mg/day for 2-3 days if weight up 2 lbs or if legs edema; go to ER if not better in 2-3 days or if becomes SOBd/w pt and Home O2 dw CM scripts done as needed; all AC restarted as per home meds; see or go to ER if hematuria recurrent Referrals: Tanner Lindsey MD [Staff Physician] - Oscar Madrid MD [Staff Physician] - Fransisco Garcia MD [Staff Physician] - Loyd Small MD [Staff Physician] - Latanya Kirk MD [Primary Care Provider] - Andres Seay MD, MD [Staff Physician] - Disposition: VNS/HOME HEALTH CARE - Home Medications Comprehensive Discharge Medication List: Ambulatory Orders Ascorbate Calcium [Vitamin C] 500 mg PO DAILY 01/20/14 Aspirin [ASA -] 81 mg PO DAILY 01/20/14 Carvedilol 3.125 mg PO BID 01/20/14 Clopidogrel Bisulfate [Plavix -] 75 mg PO DAILY 01/20/14 Dutasteride [Avodart] 0.5 mg PO HS 01/20/14 Folic Acid - 1 mg PO DAILY 01/20/14 Levothyroxine [Synthroid -] 50 mcg PO ASDIR 01/20/14 Pregabalin [Lyrica -] 50 mg PO DAILY 01/20/14 Ranitidine HCl [Zantac] 150 mg PO BID 01/20/14 Tamsulosin HCl [Flomax -] 0.4 mg PO DAILY 01/20/14 Furosemide [Lasix -] 20 mg PO DAILY 10/25/15 Magnesium 200 mg PO DAILY 10/25/15 Levothyroxine [Synthroid -] 75 mcg PO ASDIR 07/21/16 Acetaminophen [Tylenol .Regular Strength -] 650 mg PO Q6H PRN #0 tablet Bacitracin - [Bacitracin Topical Ointment -] 1 applic TP DAILY tube 07/27/16 Sodium Chloride Nasal [place] [[place] Nasal [place] -] 2 spray NS Q4H PRN #0 bottle 07/27/16
--- NOTE | 2016-07-27 13:25 | PN ---
Progress Note, Physician History of Present Illness: Hematuria resolved, dyspnea improving. - Current Medication List Current Medications: Active Medications Acetaminophen (Tylenol -) 325 mg PO Q12H PRN PRN Reason: PAIN Last Admin: 07/23/16 23:36 Dose: 325 mg Acetaminophen (Tylenol -) 650 mg PO Q6H PRN PRN Reason: FEVER OR PAIN Last Admin: 07/24/16 04:47 Dose: 650 mg Ascorbic Acid (Vitamin C -) 500 mg PO DAILY [facility] Last Admin: 07/27/16 09:59 Dose: 500 mg Aspirin (Asa -) 81 mg PO DAILY [facility] Last Admin: 07/27/16 09:58 Dose: 81 mg Bacitracin (Bacitracin -) 1 applic TP DAILY [facility] Last Admin: 07/27/16 10:08 Dose: 1 applic Carvedilol (Coreg -) 3.125 mg PO BID [facility] Last Admin: 07/27/16 09:58 Dose: 3.125 mg Clopidogrel Bisulfate (Plavix -) 75 mg PO DAILY [facility] Last Admin: 07/27/16 09:58 Dose: 75 mg Dutasteride (Avodart -) 0.5 mg PO HS [facility] Last Admin: 07/26/16 21:39 Dose: 0.5 mg Folic Acid (Folic Acid -) 1 mg PO DAILY [facility] Last Admin: 07/27/16 09:58 Dose: 1 mg Furosemide (Lasix -) 40 mg PO DAILY [facility] Last Admin: 07/27/16 09:59 Dose: 40 mg Heparin Sodium (Porcine) (Heparin -) 5,000 unit SQ BID [facility] Last Admin: 07/27/16 10:07 Dose: 5,000 unit Insulin Aspart (Novolog Vial Sliding Scale -) 1 vial SQ ACHS [facility] PRN Reason: Protocol Last Admin: 07/27/16 11:16 Dose: 2 units Levothyroxine Sodium (Synthroid -) 50 mcg PO AM [facility] Last Admin: 07/27/16 06:15 Dose: 50 mcg Oxycodone HCl (Roxicodone -) 5 mg PO Q12H PRN PRN Reason: PAIN Last Admin: 07/23/16 23:35 Dose: 5 mg Pregabalin (Lyrica -) 50 mg PO DAILY [facility] Last Admin: 07/27/16 09:59 Dose: 50 mg Ranitidine HCl (Zantac -) 150 mg PO BID [facility] Last Admin: 07/27/16 09:59 Dose: 150 mg Sodium Chloride ([place] Nasal [place] -) 2 spray NS Q4H PRN PRN Reason: NASAL CONGESTION Last Admin: 07/23/16 22:08 Dose: 2 spray Tamsulosin HCl (Flomax -) 0.4 mg PO DAILY@0830 [facility] Last Admin: 07/27/16 08:21 Dose: 0.4 mg - Objective Vital Signs: Vital Signs Temperature 97.8 F 07/27/16 08:30 Pulse Rate 66 07/27/16 08:30 Respiratory Rate 20 07/27/16 08:30 Blood Pressure 128/61 07/27/16 08:30 O2 Sat by Pulse Oximetry (%) 99 07/27/16 09:00 Constitutional: Yes: No Distress, Calm Neck: Yes: Supple Cardiovascular: Yes: Regular Rate and Rhythm Respiratory: Yes: Regular, Diminished Gastrointestinal: Yes: Normal Bowel Sounds, Soft Edema: No Labs: CBC, BMP 07/27/16 06:00 07/27/16 06:00 INR, PTT INR 1.23 (0.82-1.09) H 07/21/16 01:25 Problem List - Problems (1) Gross hematuria Code(s): R31.0 - GROSS HEMATURIA (2) ASHD (arteriosclerotic heart disease) Code(s): I25.10 - ATHSCL HEART DISEASE OF [place] CORONARY ARTERY W/O ANG PCTRS (3) Anemia Code(s): D64.9 - ANEMIA, UNSPECIFIED Qualifiers: Anemia type: unspecified type Qualified Code(s): D64.9 - Anemia, unspecified (4) COPD (chronic obstructive pulmonary disease) Code(s): J44.9 - CHRONIC OBSTRUCTIVE PULMONARY DISEASE, UNSPECIFIED Qualifiers : COPD type: chronic bronchitis (5) Chronic renal failure Code(s): N18.9 - CHRONIC KIDNEY DISEASE, UNSPECIFIED (6) Diabetes mellitus Code(s): E11.9 - TYPE 2 DIABETES MELLITUS WITHOUT COMPLICATIONS Qualifiers: Diabetes mellitus type: type 2 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) (7) Dyspnea Code(s): R06.00 - DYSPNEA, UNSPECIFIED Qualifiers: Dyspnea type: dyspnea on exertion Qualified Code(s): R06.09 - Other forms of dyspnea (8) Hx of CABG Code(s): Z95.1 - PRESENCE OF AORTOCORONARY BYPASS GRAFT (9) ICD (implantable cardioverter-defibrillator) in place Code(s): Z95.810 - PRESENCE OF AUTOMATIC (IMPLANTABLE) CARDIAC DEFIBRILLATOR (10) Peripheral arterial disease Code(s): I73.9 - PERIPHERAL VASCULAR DISEASE, UNSPECIFIED (11) Urinary retention Code(s): R33.9 - RETENTION OF URINE, UNSPECIFIED (12) 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 Pneumonia with left base infiltrate - clinically improving 2. Resolved hematuria 3. CAD s/p CABG, angina 4. LV systolic dysfunction with history of failure 5. Post ICD implant with history of VT 6. HTN/HCVD 7. Hypercholesterolemia 8. Diabetes Mellitus 9. PVD post WEAVER TIRE CORD, TMA 10. Carotid artery disease 11. Hypothyroidism PLAN: 1. Continue Carvedilol. Ideally ACEI or ARB once renal function stabilizes and BP tolerates 2. ASA 81 qd, Plavix 75 qd and Lasix 40 po qd 3. F/u in office with Dr. Fair
[2016-07-27 14:54] VITALS: BP 110/53; PULSE 76; TEMP 98.2
== END 2016-07-27 18:28 | disposition home health service (06) | DRG 194 ==
LOC: JER 00:45 → JERBED 04:59 → J7W 14:02
PROVIDERS: ADMIT Internal Medicine; ATTEND Internal Medicine
DX: J18.9 Pneumonia, unspecified organism (principal); N39.0 Urinary tract infection, site not specified; N17.9 Acute kidney failure, unspecified; I13.0 Hypertensive heart and chronic kidney disease with heart failure and stage 1 through stage 4 chronic kidney disease, or unspecified chronic kidney disease; I50.22 Chronic systolic (congestive) heart failure; I12.9 Hypertensive chronic kidney disease with stage 1 through stage 4 chronic kidney disease, or unspecified chronic kidney disease; F41.9 Anxiety disorder, unspecified; N40.0 Benign prostatic hyperplasia without lower urinary tract symptoms; R31.0 Gross hematuria; Z87.891 Personal history of nicotine dependence; I25.10 Atherosclerotic heart disease of native coronary artery without angina pectoris; Z95.1 Presence of aortocoronary bypass graft; D64.9 Anemia, unspecified; E78.00 Pure hypercholesterolemia, unspecified; N18.9 Chronic kidney disease, unspecified; E11.22 Type 2 diabetes mellitus with diabetic chronic kidney disease; J44.9 Chronic obstructive pulmonary disease, unspecified; Z95.810 Presence of automatic (implantable) cardiac defibrillator; I73.9 Peripheral vascular disease, unspecified; E03.9 Hypothyroidism, unspecified; Z79.4 Long term (current) use of insulin
CPT/HCPCS: 36415; 71010-TC; 71250-TC; 76775-TC; 76856-TC; 80048; 80053; 81003; 81015; 82550; 83880; 84443; 84484; 85025; 85610; 87086; 93005; 93010; 93306-TC; 94761; 99285-25; J1644

== ENCOUNTER 2016-07-31 11:35 | Inpatient (IN) | payer OTHER, MEDICARE ==
[2016-07-31 11:55] VITALS: BMI 20.7
--- NOTE | 2016-07-31 12:24 | PDOC ---
History of Present Illness - History of Present Illness Initial Comments: 07/31/16 14:36 The patient is a 86 year old male, with a significant past medical history of CAD, PVD, diabetes,hypertension, CHF, CABG s/p 3 stents and defibrillator, enlarged prostate, kidney stones and UTIs, who presents to the emergency department via ems from home for decreased urinary output s/p discharge from the hospital 4 days ago for urinary retention and pneumonia. The patient states he was urinating normally at discharge, but reports a decreasing urinary output over the last few day. The patient presents with his who states the patient s diaper was dry this morning after not having been changed since last night before bed. The patient also reports a persistent cough since his discharge which has not worsened. No associated fever/back pain/dysuria. He denies chest pain, shortness of breath, headache and dizziness. He denies fever, chills, nausea, vomit, diarrhea and constipation. He denies dysuria, frequency, urgency and hematuria. Allergies: NKDA PCP - Dr. Latanya Kirk <Karis Patel - Last Filed: 07/31/16 15:47> <Jose Manuel Urena - Last Filed: 07/31/16 16:23> - General Chief Complaint: Urinary Problem Stated Complaint: DIFFICULT TO URINATE Time Seen by Provider: 07/31/16 11:43 Past History <Karis Patel - Last Filed: 07/31/16 15:47> - Past Medical History Anemia: Yes Asthma: No Cancer: No Cardiac Disorders: Yes (CAD, PVD, CABG, stents) COPD: No CHF: Yes Diabetes: Yes HTN: Yes Hypercholesterolemia: No Kidney Stones: Yes Thyroid Disease: No - Surgical History Abdominal Surgery: (gallbladder removal 2016) Appendectomy: No Cardiac Surgery: Yes (cabg x 3/defibrillator implanted) Cholecystectomy: Yes Lung Surgery: No Neurologic Surgery: No Orthopedic Surgery: Yes (lt foot amputated) - Immunization History Td Vaccination: No TDAP Vaccination: No Immunization Up to Date: Yes - Psycho/Social/Smoking Cessation Hx Anxiety: No Suicidal Ideation: No Smoking Status: No Smoking History: Former smoker Years of Tobacco Use: 50 Have you smoked in the past 12 months: No Number of Cigarettes Smoked Daily: 0 If you are a former smoker, when did you quit?: 2009 Cigars Per Day: 0 Information on smoking cessation initiated: No Hx Alcohol Use: No Drug/Substance Use Hx: No Substance Use Type: None Hx Substance Use Treatment: No <Jose Manuel Urena - Last Filed: 07/31/16 16:23> - Past Medical History Allergies/Adverse Reactions: Allergies Allergy/AdvReac Type Severity Reaction Status Date / Time No Known Allergies Allergy Verified 07/31/16 11:55 Home Medications: Ambulatory Orders Ascorbate Calcium [Vitamin C] 500 mg PO DAILY 01/20/14 Aspirin [ASA -] 81 mg PO DAILY 01/20/14 Carvedilol 3.125 mg PO BID 01/20/14 Clopidogrel Bisulfate [Plavix -] 75 mg PO DAILY 01/20/14 Dutasteride [Avodart] 0.5 mg PO HS 01/20/14 Folic Acid - 1 mg PO DAILY 01/20/14 Levothyroxine [Synthroid -] 50 mcg PO ASDIR 01/20/14 Pregabalin [Lyrica -] 50 mg PO DAILY 01/20/14 Ranitidine HCl [Zantac] 150 mg PO BID 01/20/14 Tamsulosin HCl [Flomax -] 0.4 mg PO DAILY 01/20/14 Furosemide [Lasix -] 20 mg PO DAILY 10/25/15 Magnesium 200 mg PO DAILY 10/25/15 Levothyroxine [Synthroid -] 75 mcg PO ASDIR 07/21/16 Acetaminophen [Tylenol .Regular Strength -] 650 mg PO Q6H PRN #0 tablet Bacitracin - [Bacitracin Topical Ointment -] 1 applic TP DAILY tube 07/27/16 Sodium Chloride Nasal [place] [[place] -] 2 spray NS Q4H PRN #0 bottle 07/27/16 Review of Systems - Review of Systems Able to Perform ROS?: Yes Comments:: 07/31/16 14:36 CONSTITUTIONAL: No reported: Fever, Chills, Diaphoresis, Generalized Weakness, Malaise, Loss of Appetite HEENT: No reported: Rhinorrhea, Nasal Congestion, Throat Pain, Throat Swelling, Difficulty Swallowing, Mouth Swelling, Ear Pain, Eye Pain, Visual Changes CARDIOVASCULAR: No reported: Chest Pain, Syncope, Palpitations, Irregular Heart Rate, Lightheadedness, Peripheral Edema RESPIRATORY: (+) mild Cough, No reported: Shortness of Breath, SOB with Exertion, Orthopnea, Wheezing, Stridor, Hemoptysis GASTROINTESTINAL: No reported: Abdominal pain, Abdominal Distension, Nausea, Vomiting, Diarrhea, Constipation, Melena, Hematochezia GENITOURINARY: (+) decreased urinary output. No reported: Dysuria, Frequency, Urgency, Hesitancy, Flank Pain, Genital Pain MUSCULOSKELETAL: No reported: Myalgia, Arthralgia, Joint Swelling, Back pain, Neck Pain SKIN: No reported: Rash, Itching, Pallor HEMEATOLOGIC/IMMUNOLOGIC: No reported: Easy Bleeding, Easy Bruising, Lymphadenopathy, Frequent infections ENDOCRINE: No reported: Unexplained Weight Gain, Unexplained Weight Loss, Heat Intolerance , Cold Intolerance NEUROLOGIC: No reported: Headache, Focal Weakness, Paresthesias, Vertigo, Lightheadedness, Unsteady Gait, Seizure, Mental Status Changes, Incontinence PSYCHIATRIC: No reported: Anxiety, Depression <Karis Patel - Last Filed: 07/31/16 15:47> *Physical Exam - Vital Signs Last Vital Signs Temp Pulse Resp BP Pulse Ox 97.4 F L 67 18 116/53 97 07/31/16 12:05 07/31/16 11:48 07/31/16 11:48 07/31/16 11:48 07/31/16 11:48 - Physical Exam Comments: 07/31/16 14:37 GENERAL: The patient is awake, alert, and fully oriented, Nontoxic - in no acute distress. HEAD: Normocephalic, atraumatic. EYES: extraocular movements intact, sclera anicteric, conjunctiva clear. ENT: Normal voice, Moist mucous membranes. NECK: Normal range of motion, supple LUNGS: Breath sounds equal, clear to auscultation bilaterally. No wheezes, no rhonchi, no rales. HEART: Regular rate and rhythm, without murmur, rub or gallop. ABDOMEN: (+) slightly distended abdomen. Soft, nontender, normoactive bowel sounds. No guarding, no rebound. No CVA tenderness EXTREMITIES: Normal range of motion, trace edema. No clubbing or cyanosis. No cords, erythema, or tenderness. NEUROLOGICAL: No facial assymetry, Normal speech, PSYCH: Normal mood, normal affect. SKIN: Warm, Dry, normal turgor, <Karis Patel - Last Filed: 07/31/16 15:47> - Vital Signs Last Vital Signs Temp Pulse Resp BP Pulse Ox 97.4 F L 67 18 116/53 97 07/31/16 12:05 07/31/16 11:48 07/31/16 11:48 07/31/16 11:48 07/31/16 11:48 <Jose Manuel Urena - Last Filed: 07/31/16 16:23> ED Treatment Course - LABORATORY CBC & Chemistry Diagram: 07/31/16 13:20 07/31/16 13:20 - ADDITIONAL ORDERS Additional order review: Laboratory Results 07/31/16 07/31/16 07/31/16 13:20 13:20 12:38 INR 1.15 H Sodium 137 Potassium 4.2 Chloride 98 Carbon Dioxide 29 Anion Gap 10 BUN 58 H Creatinine 1.8 H Creat Clearance w eGFR 36.04 Random Glucose 141 H D Calcium 8.9 Total Bilirubin 0.6 AST 45 H D ALT 44 D Alkaline Phosphatase 120 H Total Protein 7.1 Albumin 3.2 L Urine Color Dkyellow Urine Appearance Cloudy Urine pH 5.0 Ur Specific [place] 1.010 Urine Protein 1+ H Urine Glucose (UA) Negative Urine Ketones Negative Urine Blood 3+ H Urine Nitrite Negative Urine Bilirubin Negative Urine Urobilinogen Negative Ur Leukocyte Esterase 3+ H Urine RBC 608 Urine WBC 552 Hyaline Casts 18 07/31/16 13:20 RBC 3.12 L MCV 101.8 H MCHC 34.0 RDW 15.3 MPV 9.3 Neutrophils % 76.8 Lymphocytes % 6.5 L D Monocytes % 10.0 Eosinophils % 5.7 H Basophils % 1.0 <Karis Patel - Last Filed: 07/31/16 15:47> - LABORATORY CBC & Chemistry Diagram: 07/31/16 13:20 07/31/16 13:20 <Jose Manuel Urena - Last Filed: 07/31/16 16:23> Medical Decision Making - Medical Decision Making 07/31/16 14:45 Dr. Cortez, Urologist, was paged via phone answering service at this time requesting a callback for a doctor to doctor consult. Dr. Cortez was paged a second time at 15:10 requesting a callback for doctor to doctor consult. I was informed that Dr. Lindsey is web solutions architect for [facility] today. Dr. Cortez returned the call at 15:30 and the patient's case was discussed. Dr. Joie Noonan was paged via phone answering service at 15:48 requesting a callback for a doctor to doctor consult. <Karis Patel - Last Filed: 07/31/16 15:47> - Medical Decision Making 07/31/16 12:30 86y M hx of anemia, cad s/p cabg, stents, chf, dm, htn, presents with decreased urination - pt with recent admission for urinary obstruction, with hematuria, throught o be secondary to traumatic pulliam insertion, s/p CBI with resolution of sypmtoms and pt was d/c without pulliam. on exm pt with out complaints including abd pain, urgency, fevers, back pain. will ck post void residual will r/o uti will ck cr will reassess and d/w dr angelo 07/31/16 15:34 labs reviewed ua noted for wbc and rbcs last culture was clean cxr shows better aeration of rll. pulliam outputed approx 300cc of urine after pt attempted voiding Discussed the case with dr. Reyes - recommends leaving pulliam in and d/c pt with pulliam bag - also recommends covering pt with levaquin until he followes up with dr. cummings. I discussed the physical exam findings, ancillary test results and final diagnoses with the patient. I answered all of the patient's questions. The patient was satisfied with the care received and felt comfortable with the discharge plan and treatment plan. The patient will call their primary care physician within 24 hours to arrange follow-up and will return to the Emergency Department with any new, persistent or worsening symptoms. 07/31/16 16:06 pt had several blood clots from the penis outside the pulliam - will admit for further evaluation as pt may need to stop plavix case was discussed with dr. noonan agreed with admission for further mangaement Case discussed in detail with admitting physician including history, physical exam and ancillary studies. Admitting physician has assumed care for the patient, will follow all pending diagnostics and will complete the evaluation and treatment. <Jose Manuel Urena - Last Filed: 07/31/16 16:23> *DC/Admit/Observation/Transfer - Attestations Scribe Attestion: 07/31/16 14:39 Documentation prepared by Karis Patel, acting as medical office technician for Jose Manuel Urena MD, MD <Karis Patel - Last Filed: 07/31/16 15:47> - Discharge Dispostion Admit: Yes <Jose Manuel Uerna - Last Filed: 07/31/16 16:23> Diagnosis at time of Disposition: Urinary retention, Hematuria - Discharge Dispostion Condition at time of disposition: Stable - Referrals Referrals: Latanya Kirk MD [Primary Care Provider] - Tanner Lindsey MD [Staff Physician] - - Patient Instructions Printed Discharge Instructions: DI for Urinary Retention in Men Additional Instructions: Return to the emergency department immediately with ANY new, persistent or worsening symptoms including any fevers, chills, back pain or any other concerns. You MUST call and follow up with your urologist the next 2-3 days for further evaluation of your symptoms. Results were discussed with you. Please make sure your doctor reviews the results of your emergency evaluation. Print Language: KAZAKH
[2016-07-31 13:34] LABS: EOSINOPHIL 5.7 % (0-4.5); MCH 34.6 pg (25.7-33.7); MEAN CELL VOLUME 101.8 fl (80-96); MEAN PLT VOLUME 9.3 fl (7.5-11.1); NEUTROPHILS 76.8 % (42.8-82.8); PLATELET COUNT 140 K/MM3 (134-434); RDW 15.3 % (11.9-15.9); WHITE BLOOD COUNT 5.7 K/mm3 (4.0-10.0)
[2016-07-31 13:54] LABS: ALBUMIN 3.2 g/dl (3.4-5.0); BILIRUBIN,TOTAL 0.6 mg/dL (0.2-1.0); CALCIUM 8.9 mg/dL (8.5-10.1); CREATININE 1.8 mg/dL (0.7-1.3); TOT PROT 7.1 g/dl (6.4-8.2)
[2016-07-31 14:05] LABS: URINE APPEARANCE CLOUDY; URINE BILIRUBIN NEGATIVE (NEGATIVE); URINE COLOR DKYELLOW; URINE GLUCOSE (UA) NEGATIVE (NEGATIVE); URINE KETONE NEGATIVE (NEGATIVE); URINE NITRITE NEGATIVE (NEGATIVE); URINE UROBILINOGEN NEGATIVE E.U./dl (0.2-1.0)
[2016-07-31 14:07] LABS: INR 1.15 (0.82-1.09); PROTHROMBIN TIME (PATIENT) 12.7 SEC (9.98-11.88)
[2016-07-31 14:09] LABS: URINE BLOOD 3+ (NEGATIVE); URINE LEUK ESTERASE 3+ (NEGATIVE); URINE PROTEIN 1+ (NEGATIVE)
[2016-07-31 14:13] LABS: URINE HYALINE CAST 18 /lpf; URINE RBC 608 /hpf (0-3); URINE WBC 552 /hpf (3-5)
[2016-07-31] MEDS ORDERED: ACETAMINOPHEN 325 MG TABLET (FP) PO ONE (15:05)
[2016-07-31] MEDS ORDERED: ACETAMINOPHEN 325 MG TABLET (FP) ONE (15:07)
--- NOTE | 2016-07-31 18:33 | HP ---
Admitting History and Physical - Primary Care Physician PCP: Joie Noonan S - Admission Chief Complaint: unable to urinate. Hematuria History of Present Illness: The patient is a 86 year old male, with a significant past medical history of CAD, PVD, diabetes,hypertension, CHF, CABG s/p 3 stents and defibrillator, enlarged prostate, kidney stones and UTIs, who presents to the emergency department via ems from home for decreased urinary output s/p discharge from the hospital 4 days ago for urinary retention and pneumonia. The patient states he was urinating normally at discharge, but reports a decreasing urinary output over the last day. The patient presents with his who states the patients diaper was dry this morning after not having been changed since last night before bed. The patient also reports a persistent cough since his discharge which has not worsened. No associated fever/back pain. He denies chest pain, shortness of breath, headache and dizziness. He denies fever, chills, nausea, vomit, diarrhea and constipation. Aguero cath was inserted in ER and drained 300 cc urine; called by ER and advised ok to DC home on po levaquin. While in ER and after the Aguero insertion, pt had few clots in urine then some red blood and suprapubic pain and admitted for further eval and treatment. at bedside said she can not manage him at home, last time he had Aguero inserted he had severe pain and hematuria being on ASA and Plavix and needed bladder irrigation (CBI). History Source: Patient, Medical Record Limitations to Obtaining History: No Limitations - Past Medical History Cardiovascular: Yes: CAD, HTN, Other (ASHD, AICD, CABG). No: AFIB Pulmonary: Yes: COPD Gastrointestinal: Yes: Other (recent C diff colitis, gallstones, chronic cholecystitis) Renal/: Yes: Renal Failure (had ARF last month in September creat bumped to 2), BPH, Renal Calculi Heme/Onc: Yes: Anemia Infectious Disease: Yes: C-Diff Musculoskeletal: Yes: Other (L foot wound s/p partial amputation) Endocrine: Yes: Diabetes Mellitus, Other (diabetic neuropathy) - Past Surgical History Past Surgical History: Yes: AICD, Amputation (TMA), Bypass, CABG - Smoking History Smoking history: Former smoker Have you smoked in the past 12 months: No Aproximately how many cigarettes per day: 0 If you are a former smoker, when did you quit?: 2009 - Alcohol/Substance Use Hx Alcohol Use: No History of Substance Use: reports: None - Social History Usual Living Arrangement: Yes: With Spouse ADL: Family Assistance History of Recent Travel: No Home Medications - Allergies Allergies/Adverse Reactions: Allergies Allergy/AdvReac Type Severity Reaction Status Date / Time No Known Allergies Allergy Verified 07/31/16 11:55 - Home Medications Home Medications: Ambulatory Orders Ascorbate Calcium [Vitamin C] 500 mg PO DAILY 01/20/14 Aspirin [ASA -] 81 mg PO DAILY 01/20/14 Carvedilol 3.125 mg PO BID 01/20/14 Clopidogrel Bisulfate [Plavix -] 75 mg PO DAILY 01/20/14 Dutasteride [Avodart] 0.5 mg PO HS 01/20/14 Folic Acid - 1 mg PO DAILY 01/20/14 Levothyroxine [Synthroid -] 50 mcg PO SUFRSA 01/20/14 Pregabalin [Lyrica -] 50 mg PO DAILY 01/20/14 Ranitidine HCl [Zantac] 150 mg PO BID 01/20/14 Tamsulosin HCl [Flomax -] 0.4 mg PO DAILY 01/20/14 Furosemide [Lasix -] 20 mg PO DAILY 10/25/15 Magnesium 200 mg PO DAILY 10/25/15 Levothyroxine [Synthroid -] 75 mcg PO MOTUWETH 07/21/16 Acetaminophen [Tylenol .Regular Strength -] 650 mg PO Q6H PRN #0 tablet Bacitracin - [Bacitracin Topical Ointment -] 1 applic TP DAILY tube 07/27/16 Sodium Chloride Nasal [place] [[place] -] 2 spray NS Q4H PRN #0 bottle 07/27/16 Family Disease History - Family Disease History Family Disease History: Heart Disease: Mother, Brother (liver [place]), [place]: Brother Review of Systems - Review of Systems Constitutional: denies: Chills, Fever Eyes: denies: Blind Spots, Blurred Vision HENT: denies: Difficult Swallowing, Ear Pain Neck: denies: Stiffness, Tenderness Cardiovascular: denies: Chest Pain, Shortness of Breath Respiratory: reports: Cough (some dry cough). denies: Hemoptysis, Orthopnea, SOB, SOB on Exertion, Wheezing Gastrointestinal: denies: Abdominal Pain, Bloating, Constipation, Diarrhea, Vomiting Genitourinary: reports: Dysuria, Hematuria. denies: Flank Pain Musculoskeletal: denies: Back Pain, Joint Pain Integumentary: denies: Blister, Bruising Neurological: denies: Change in Speech, Confusion Endocrine: denies: Excessive Sweating, Flushing Hematology/Lymphatic: denies: Easily Bruised, Excessive Bleeding Psychiatric: denies: Altered Sleep Pattern, Anxiety, Depression Physical Examination Vital Signs: Vital Signs Temperature 97.4 F L 07/31/16 12:05 Pulse Rate 69 07/31/16 17:30 Respiratory Rate 18 07/31/16 17:30 Blood Pressure 107/53 07/31/16 17:30 O2 Sat by Pulse Oximetry (%) 98 07/31/16 17:30 Constitutional: Yes: No Distress, Calm Eyes: Yes: Conjunctiva Clear HENT: Yes: Atraumatic Neck: Yes: Supple Cardiovascular: Yes: Regular Rate and Rhythm Respiratory: Yes: CTA Bilaterally Gastrointestinal: Yes: Soft. No: Distention, Tenderness Renal/: Yes: Aguero Present, Hematuria. No: CVA Tenderness - Left, CVA Tenderness - Right Musculoskeletal: No: Joint Stiffness, Joint Swelling Extremities: No: Cold, Cool Edema: No Peripheral Pulses WNL: Yes Integumentary: No: Pressure Ulcer, Rash, Venous Stasis Changes Neurological: Yes: WNL, Alert, Oriented ...Motor Strength: WNL Psychiatric: Yes: WNL, Alert, Oriented. No: Agitated, Suicidal Ideation Imaging - Results Chest X-ray: Report Reviewed Other: Report Reviewed Assessment/Plan The patient is a 86 year old male, with a significant past medical history of CAD, PVD, diabetes,hypertension, CHF, CABG s/p 3 stents and defibrillator, enlarged prostate, kidney stones and UTIs, who presents to the emergency department via ems from home for decreased urinary output s/p discharge from the hospital 4 days ago for urinary retention and pneumonia. The patient states he was urinating normally at discharge, but reports a decreasing urinary output over the last day. Aguero inserted in ER 300 cc urine drained; developed clots and hematuria and pain admit for further urinary retention and hematuria management eval po levaquin hold ASA & Plavix can not use TEDs/ SCDs sec to h/o PVD falls decubs aspiration pfx f/u labs d/w pt and , d/w ER staff pt had renal and pelvic US last admission, c/w significant BPH
[2016-07-31] MEDS: DUTASTERIDE 0.5 MG CAP (FP) PO SCH (22:52)
[2016-07-31] MEDS: CARVEDILOL 3.125 MG TABLET (FP) PO SCH (22:53)
[2016-07-31] MEDS: RANITIDINE HCL 150 MG TABLET (FP) PO SCH (22:54)
[2016-07-31] MEDS: SODIUM CHLORIDE NASAL SPRAY 44 ML BOTTLE NS PRN (23:54)
[2016-08-01] MEDS: ACETAMINOPHEN 325 MG TABLET (FP) PO PRN ×3 (00:17→23:49)
[2016-08-01] MEDS: LEVOTHYROXINE NA 75 MCG TABLET (FP) PO SCH (06:22)
[2016-08-01] MEDS: SODIUM CHLORIDE NASAL SPRAY 44 ML BOTTLE NS PRN (06:23)
[2016-08-01 07:11] LABS: BASOPHIL 0.7 % (0-2.0); EOSINOPHIL 3.5 % (0-4.5); MCH 34.9 pg (25.7-33.7); MCHC 34.5 g/dl (32.0-35.9); MEAN CELL VOLUME 101.1 fl (80-96); MEAN PLT VOLUME 9.8 fl (7.5-11.1); NEUTROPHILS 78.9 % (42.8-82.8); PLATELET COUNT 137 K/MM3 (134-434); RDW 15.3 % (11.9-15.9); WHITE BLOOD COUNT 5.5 K/mm3 (4.0-10.0)
[2016-08-01 07:45] LABS: CALCIUM 8.7 mg/dL (8.5-10.1); CREATININE 1.6 mg/dL (0.7-1.3)
[2016-08-01 07:53] LABS: FERRITIN 99.002 ng/ml (16.4-293.9); THYROID STIMULATING HORMONE 3.83 uIU/ml (0.358-3.74)
[2016-08-01] MEDS: ASCORBIC ACID 500 MG TABLET (FP) PO SCH (09:50)
[2016-08-01] MEDS: RANITIDINE HCL 150 MG TABLET (FP) PO SCH ×2 (09:50→22:50)
[2016-08-01] MEDS: TAMSULOSIN HCL 0.4 MG CAP.ER.24H (FP) PO SCH (09:50)
[2016-08-01] MEDS: PREGABALIN 50 MG CAPSULE PO SCH (09:50)
[2016-08-01] MEDS: CARVEDILOL 3.125 MG TABLET (FP) PO SCH ×2 (09:51→22:55)
[2016-08-01] MEDS: BACITRACIN 30 GM TUBE TOPICAL OINTMENT TP SCH (09:51)
[2016-08-01] MEDS: FOLIC ACID 1 MG TABLET (FP) PO SCH (09:51)
[2016-08-01] MEDS ORDERED: FUROSEMIDE 20 MG TABLET (FP) PO SCH (10:00)
--- NOTE | 2016-08-01 12:10 | PN ---
Progress Note, Physician Chief Complaint: very anxious this am, wants to go home NOW; d/w pt's from pt's room, she can not take care of him home if he continues to have hematuria and pain and not able to urinate; transportation an issue; still coughing; has home O2; CXR small effusion, will change lasix to IV eval pending; Aguero in, hematuria clearing; will restart ASA and plavix - Current Medication List Current Medications: Active Medications Acetaminophen (Tylenol -) 650 mg PO Q6H PRN PRN Reason: FEVER OR PAIN Last Admin: 08/01/16 06:22 Dose: 650 mg Alprazolam (Xanax -) 0.25 mg PO BID PRN PRN Reason: ANXIETY Ascorbic Acid (Vitamin C -) 500 mg PO DAILY [facility] Last Admin: 08/01/16 09:50 Dose: 500 mg Aspirin (Asa -) 81 mg PO DAILY [facility] Bacitracin (Bacitracin -) 1 applic TP DAILY [facility] Last Admin: 08/01/16 09:51 Dose: 1 applic Carvedilol (Coreg -) 3.125 mg PO BID [facility] Last Admin: 08/01/16 09:51 Dose: 3.125 mg Clopidogrel Bisulfate (Plavix -) 75 mg PO DAILY [facility] Dutasteride (Avodart -) 0.5 mg PO HS [facility] Last Admin: 07/31/16 22:52 Dose: 0.5 mg Folic Acid (Folic Acid -) 1 mg PO DAILY [facility] Last Admin: 08/01/16 09:51 Dose: 1 mg Furosemide (Lasix Injection -) 20 mg IVPUSH DAILY [facility] Levofloxacin (Levaquin 250 Mg Premixed Ivpb -) 50 mls @ 50 mls/hr IVPB DAILY [facility] Levothyroxine Sodium (Synthroid -) 50 mcg PO SuFrSa@0700 [facility] Levothyroxine Sodium (Synthroid -) 75 mcg PO MoTuWeTh@0700 [facility] Last Admin: 08/01/16 06:22 Dose: 75 mcg Pregabalin (Lyrica -) 50 mg PO DAILY [facility] Last Admin: 08/01/16 09:50 Dose: 50 mg Ranitidine HCl (Zantac -) 150 mg PO BID [facility] Last Admin: 08/01/16 09:50 Dose: 150 mg Sodium Chloride ([place]al [place] -) 2 spray NS Q4H PRN PRN Reason: NASAL CONGESTION Last Admin: 08/01/16 06:23 Dose: 2 sprays Tamsulosin HCl (Flomax -) 0.4 mg PO DAILY [facility] Last Admin: 08/01/16 09:50 Dose: 0.4 mg - Objective Vital Signs: Vital Signs Temperature 97.7 F 08/01/16 06:45 Pulse Rate 72 08/01/16 06:45 Respiratory Rate 20 08/01/16 06:45 Blood Pressure 117/61 08/01/16 06:45 O2 Sat by Pulse Oximetry (%) 98 07/31/16 21:00 Constitutional: Yes: Anxious Eyes: Yes: Conjunctiva Clear HENT: Yes: Atraumatic Neck: Yes: Supple Cardiovascular: Yes: Regular Rate and Rhythm Respiratory: Yes: CTA Bilaterally Gastrointestinal: Yes: Soft. No: Distention, Tenderness Genitourinary: Yes: Aguero Present, Hematuria (clearing). No: CVA Tenderness - Left, CVA Tenderness - Right Musculoskeletal: No: Joint Stiffness, Joint Swelling Extremities: No: Cold, Cool Edema: Yes (trace pretibial bilateral) Peripheral Pulses WNL: Yes Integumentary: No: Rash, Venous Stasis Changes Neurological: Yes: WNL, Alert, Oriented ...Motor Strength: WNL Psychiatric: Yes: WNL, Alert, Oriented. No: Agitated, Suicidal Ideation Labs: CBC, BMP 08/01/16 06:05 08/01/16 06:05 INR, PTT INR 1.15 (0.82-1.09) H 07/31/16 13:20 - ....Imaging Other: Report Reviewed Assessment/Plan The patient is a 86 year old male, with a significant past medical history of CAD, PVD, diabetes,hypertension, CHF, CABG s/p 3 stents and defibrillator, COPD enlarged prostate, kidney stones and UTIs, who presents to the emergency department via ems from home for decreased urinary output s/p discharge from the hospital 4 days ago for urinary retention and pneumonia. The patient states he was urinating normally at discharge, but reports a decreasing urinary output over the last day. Aguero inserted in ER 300 cc urine drained; developed clots and hematuria and pain admit for further urinary retention and hematuria management eval, po levaquin restart ASA & Plavix COPD O2 dep, cough, mild CHF: iv lasix (saw cardio few days ago); pulm eval for cough can not use TEDs/ SCDs sec to h/o PVD falls decubs aspiration pfx f/u labs d/w pt and , d/w ER staff; PT rehab and CM eval
[2016-08-01] MEDS ORDERED: guaiFENesin/D-M SUGAR-FREE/ACLHOL-FREE 118 ML BOTTLE PO PRN (13:24)
--- NOTE | 2016-08-01 13:24 | PN ---
Progress Note (short form) - Note Progress Note: PULMONARY CONSULTATION DICTATED 08/01/16 IMP COUGH COPD RECENT PNEUMONIA CHF ASHD S/P ICD HEMATURIA URINARY RETENTION ACUTE ON CHRONIC KIDNEY INJURY PLAN INHALED BRONCHODILATORS ANTITUSSIVES EVALUATION ANTIBIOTICS MONITOR LYTES MONITOR URINE OUTPUT DR NAVARRO Problem List - Problems (1) Hematuria Code(s): R31.9 - HEMATURIA, UNSPECIFIED (2) Urinary retention Code(s): R33.9 - RETENTION OF URINE, UNSPECIFIED (3) ASHLYN (acute kidney injury) Code(s): N17.9 - ACUTE KIDNEY FAILURE, UNSPECIFIED (4) ASHD (arteriosclerotic heart disease) Code(s): I25.10 - ATHSCL HEART DISEASE OF [place] CORONARY ARTERY W/O ANG PCTRS (5) Anemia Code(s): D64.9 - ANEMIA, UNSPECIFIED Qualifiers: Anemia type: unspecified type Qualified Code(s): D64.9 - Anemia, unspecified (6) CHF (congestive heart failure) Code(s): I50.9 - HEART FAILURE, UNSPECIFIED Qualifiers: Congestive heart failure type: unspecified congestive heart failure type Congestive heart failure chronicity: acute on chronic Qualified Code(s ): I50.9 - Heart failure, unspecified (7) COPD (chronic obstructive pulmonary disease) Code(s): J44.9 - CHRONIC OBSTRUCTIVE PULMONARY DISEASE, UNSPECIFIED Qualifiers : COPD type: chronic bronchitis (8) Hx of CABG Code(s): Z95.1 - PRESENCE OF AORTOCORONARY BYPASS GRAFT (9) ICD (implantable cardioverter-defibrillator) in place Code(s): Z95.810 - PRESENCE OF AUTOMATIC (IMPLANTABLE) CARDIAC DEFIBRILLATOR (10) Cough Code(s): R05 - COUGH
[2016-08-01] MEDS ORDERED: ALBUTEROL SO4 2.5/IPRATROPIUM 0.5 INH SOL 3 ML VIAL.NEB. NEB PRN (13:25)
[2016-08-01] MEDS: FUROSEMIDE 40 MG/4 ML INJECTABLE VIAL IVPUSH SCH (13:51)
[2016-08-01] MEDS: ALPRAZolam 0.25 MG TABLET PO PRN ×2 (13:51→13:59)
[2016-08-01] MEDS: LEVOFLOXACIN 250 MG IVPB 50 ML IVPB SCH (13:52)
--- NOTE | 2016-08-01 14:09 | CONS ---
DATE OF CONSULTATION: 08/01/2016 REFERRING PHYSICIAN: Joie Noonan MD HISTORY: The patient is an 86-year-old white male known to me from previous hospitalizations with past medical history of ASHD, peripheral vascular disease, diabetes, hypertension, CHF, status post CABG, status post stents as well as defibrillator, BPH, kidney stones, UTIs recently hospitalized at [facility] secondary to urinary retention as well as pneumonia treated with antibiotics and now bronchodilators with good response readmitted on July 31 secondary to urinary retention. In the ER, a Aguero was inserted, and he drained 300 mL. He was also noted to develop clots, hematuria, and pain at which time he was transferred up to the floor. The patient has also been complaining of cough productive of some sputum. He is unsure exactly what color. He denies any chest pains or palpitations. He does complain of shortness of breath with exertion. Denies any fevers, weight loss, or night sweats. Denies any hemoptysis. SOCIAL HISTORY: He has a history of tobacco use approximately 1 pack per day for many years. Quit approximately 7 years ago. He is a retired [employer] by prior profession. PAST MEDICAL HISTORY: Again includes ASHD, peripheral vascular disease, status post CABG, status post stent, status post defibrillator, CHF, hypertension, diabetes, COPD, enlarged prostate, kidney stones, and UTIs as well as recent pneumonia. REVIEW OF SYSTEMS: No orthopnea, no PND. Positive cough. No chest pain, no palpitations, no nausea, no vomiting. Positive urinary retention, positive hematuria. CURRENT MEDICATIONS: Include Avodart, Flomax, Tylenol, Levaquin, bacitracin, Lyrica, Xanax, Coreg, [place] Nasal [place], Zantac, Lasix, aspirin, Plavix, Synthroid, folic acid, and vitamin C. PHYSICAL EXAMINATION: General: The patient is an elderly white male well developed, alert in no acute distress. Vital Signs: He is currently afebrile. O2 saturation is 95% on room air, heart rate 72, blood pressure 117/61, respiratory rate 20. HEENT: Normocephalic and atraumatic. Neck: Supple. Heart: Regular with S1, S2. Chest: Clear. Abdomen: Soft. Bowel sounds are positive. Extremities: No cyanosis or edema. LABORATORIES: WBCs 5.5, hemoglobin 10.5, hematocrit 30.4, platelet count 137,000, INR is 1.15. Chemistries: BUN 54, creatinine 1.6. Chest x-ray: Small pleural effusion at the left base and some mild atelectasis and/or infiltrate. Of note, previous CAT scan of the chest revealed bilateral pleural effusions. IMPRESSION: 1. Cough most likely secondary to residual pneumonia, hyperreactive airway. 2. Underlying chronic obstructive pulmonary disease. 3. Urinary retention. 4. Acute on chronic renal insufficiency, kidney injury. 5. Arteriosclerotic heart disease status post coronary artery bypass graft status post stent. 6. Congestive heart failure. PLAN: Inhaled bronchodilators, antitussive, evaluation. Agree with antibiotic therapy. Nasal O2 p.r.n. Monitor renal function. VALENTIN NAVARRO M.D. [id number]
--- NOTE | 2016-08-01 17:35 | CONSULT ---
Consult Consult Specialty:: Urology Reason for Consultation:: urinary retention - History of Present Illness Chief Complaint: urinary retention History of Present Illness: 86 year old male on antiplatelet agents who presented recently with clot urinary retention. He returns to the ER with urinary retention. Aguero cath was placed which is currently clear. - History Source History Provided By: Patient, Medical Record - Past Medical History Cardio/Vascular: Yes: CAD, HTN, Other (ASHD, AICD, CABG). No: AFIB Pulmonary: Yes: COPD Gastrointestinal: Yes: Other (recent C diff colitis, gallstones, chronic cholecystitis) Renal/: Yes: Renal Failure (had ARF last month in September creat bumped to 2), BPH, Renal Calculi Infectious Disease: Yes: C-Diff Musculoskeletal: Yes: Other (L foot wound s/p partial amputation) Endocrine: Yes: Diabetes Mellitus, Other (diabetic neuropathy) - Past Surgical History Past Surgical History: Yes: AICD, Amputation (TMA), Bypass, CABG - Alcohol/Substance Use Hx Alcohol Use: No History of Substance Use: reports: None - Smoking History Smoking history: Former smoker Have you smoked in the past 12 months: No Aproximately how many cigarettes per day: 0 If you are a former smoker, when did you quit?: 2009 - Social History Usual Living Arrangement: With Spouse ADL: Family Assistance History of Recent Travel: No Home Medications - Allergies Allergies/Adverse Reactions: Allergies Allergy/AdvReac Type Severity Reaction Status Date / Time No Known Allergies Allergy Verified 07/31/16 11:55 - Home Medications Home Medications: Ambulatory Orders Ascorbate Calcium [Vitamin C] 500 mg PO DAILY 01/20/14 Aspirin [ASA -] 81 mg PO DAILY 01/20/14 Carvedilol 3.125 mg PO BID 01/20/14 Clopidogrel Bisulfate [Plavix -] 75 mg PO DAILY 01/20/14 Dutasteride [Avodart] 0.5 mg PO HS 01/20/14 Folic Acid - 1 mg PO DAILY 01/20/14 Levothyroxine [Synthroid -] 50 mcg PO SUFRSA 01/20/14 Pregabalin [Lyrica -] 50 mg PO DAILY 01/20/14 Ranitidine HCl [Zantac] 150 mg PO BID 01/20/14 Tamsulosin HCl [Flomax -] 0.4 mg PO DAILY 01/20/14 Furosemide [Lasix -] 20 mg PO DAILY 10/25/15 Magnesium 200 mg PO DAILY 10/25/15 Levothyroxine [Synthroid -] 75 mcg PO MOTUWETH 07/21/16 Acetaminophen [Tylenol .Regular Strength -] 650 mg PO Q6H PRN #0 tablet Bacitracin - [Bacitracin Topical Ointment -] 1 applic TP DAILY tube 07/27/16 Sodium Chloride Nasal [place] [[place] Nasal [place] -] 2 spray NS Q4H PRN #0 bottle 07/27/16 Family Disease History - Family Disease History Family Disease History: Heart Disease: Mother, Brother (liver [place]), [place]: Brother Review of Systems - Review of Systems Genitourinary: reports: Frequency, Hematuria Physical Exam Vital Signs: Vital Signs Temperature 98.9 F 08/01/16 16:01 Pulse Rate 76 08/01/16 16:01 Respiratory Rate 19 08/01/16 16:01 Blood Pressure 123/58 08/01/16 16:01 O2 Sat by Pulse Oximetry (%) 98 08/01/16 09:00 Renal/: Yes: Aguero Present. No: Bladder Distention, CVA Tenderness - Left, CVA Tenderness - Right, Hematuria Labs: CBC, BMP 08/01/16 06:05 08/01/16 06:05 Problem List - Problems (1) Benign localized hyperplasia of prostate with urinary obstruction Assessment/Plan: plan for cystoscopy possible TURP if medically cleared for anesthesia Code(s): N40.1 - BENIGN PROSTATIC HYPERPLASIA WITH LOWER URINARY TRACT SYMP N13.8 - OTHER OBSTRUCTIVE AND REFLUX UROPATHY
[2016-08-01] MEDS: DUTASTERIDE 0.5 MG CAP (FP) PO SCH (22:48)
[2016-08-02] MEDS: LEVOTHYROXINE NA 75 MCG TABLET (FP) PO SCH (06:53)
[2016-08-02] MEDS: SODIUM CHLORIDE NASAL SPRAY 44 ML BOTTLE NS PRN (06:54)
[2016-08-02 08:45] LABS: BILIRUBIN,TOTAL 0.7 mg/dL (0.2-1.0); CALCIUM 8.9 mg/dL (8.5-10.1); CREATININE 1.7 mg/dL (0.7-1.3); TOT PROT 6.7 g/dl (6.4-8.2)
[2016-08-02 09:14] LABS: BASOPHIL 0.4 % (0-2.0); EOSINOPHIL 0.2 % (0-4.5); MCH 34.9 pg (25.7-33.7); MCHC 33.6 g/dl (32.0-35.9); MEAN PLT VOLUME 9.7 fl (7.5-11.1); NEUTROPHILS 89.9 % (42.8-82.8); PLATELET COUNT 148 K/MM3 (134-434); RDW 15.7 % (11.9-15.9); WHITE BLOOD COUNT 7.4 K/mm3 (4.0-10.0)
--- NOTE | 2016-08-02 09:36 | PN ---
Progress Note (short form) - Note Progress Note: Awake in NAD on RA. Denies CP or SOB. Intake & Output 07/30/16 07/31/16 08/01/16 08/02/16 23:59 23:59 23:59 23:59 Intake Total 440 740 Output Total 300 1500 200 Balance 140 -760 -200 Weight 145 lb 0.004 oz 149 lb 3 oz 142 lb 14.4 oz Last Vital Signs Temp Pulse Resp BP Pulse Ox 98.4 F 88 20 117/65 98 08/02/16 06:00 08/02/16 06:00 08/02/16 06:00 08/02/16 06:00 08/01/16 21:00 Active Medications Acetaminophen (Tylenol -) 650 mg PO Q6H PRN PRN Reason: FEVER OR PAIN Last Admin: 08/01/16 23:49 Dose: 650 mg Albuterol/Ipratropium (Duoneb -) 1 amp NEB Q4H PRN PRN Reason: SHORTNESS OF BREATH Alprazolam (Xanax -) 0.25 mg PO BID PRN PRN Reason: ANXIETY Last Admin: 08/01/16 13:59 Dose: 0.25 mg Ascorbic Acid (Vitamin C -) 500 mg PO DAILY [facility] Last Admin: 08/01/16 09:50 Dose: 500 mg Aspirin (Asa -) 81 mg PO DAILY [facility] Bacitracin (Bacitracin -) 1 applic TP DAILY [facility] Last Admin: 08/01/16 09:51 Dose: 1 applic Carvedilol (Coreg -) 3.125 mg PO BID [facility] Last Admin: 08/01/16 22:55 Dose: 3.125 mg Clopidogrel Bisulfate (Plavix -) 75 mg PO DAILY [facility] Dutasteride (Avodart -) 0.5 mg PO HS [facility] Last Admin: 08/01/16 22:48 Dose: 0.5 mg Folic Acid (Folic Acid -) 1 mg PO DAILY [facility] Last Admin: 08/01/16 09:51 Dose: 1 mg Furosemide (Lasix Injection -) 20 mg IVPUSH DAILY [facility] Last Admin: 08/01/16 13:51 Dose: 20 mg Guaifenesin (Diabetic Tussin Dm -) 10 ml PO Q6H PRN PRN Reason: COUGH Levofloxacin (Levaquin 250 Mg Premixed Ivpb -) 50 mls @ 50 mls/hr IVPB DAILY [facility] Last Admin: 08/01/16 13:52 Dose: 50 mls/hr Levothyroxine Sodium (Synthroid -) 50 mcg PO SuFrSa@0700 [facility] Levothyroxine Sodium (Synthroid -) 75 mcg PO MoTuWeTh@0700 [facility] Last Admin: 08/02/16 06:53 Dose: 75 mcg Pregabalin (Lyrica -) 50 mg PO DAILY [facility] Last Admin: 08/01/16 09:50 Dose: 50 mg Ranitidine HCl (Zantac -) 150 mg PO BID [facility] Last Admin: 08/01/16 22:50 Dose: 150 mg Sodium Chloride ([place] Nasal [place] -) 2 spray NS Q4H PRN PRN Reason: NASAL CONGESTION Last Admin: 08/02/16 06:54 Dose: 2 sprays Tamsulosin HCl (Flomax -) 0.4 mg PO DAILY [facility] Last Admin: 08/01/16 09:50 Dose: 0.4 mg Constitutional: Yes: Anxious Eyes: Yes: Conjunctiva Clear HENT: Yes: Atraumatic Neck: Yes: Supple Cardiovascular: Yes: Regular Rate and Rhythm Respiratory: Yes: CTA Bilaterally Gastrointestinal: Yes: Soft. No: Distention, Tenderness Genitourinary: Yes: Aguero Present, Hematuria (clearing). No: CVA Tenderness - Left, CVA Tenderness - Right Musculoskeletal: No: Joint Stiffness, Joint Swelling Extremities: No: Cold, Cool Edema: Yes (trace pretibial bilateral) Peripheral Pulses WNL: Yes Integumentary: No: Rash, Venous Stasis Changes Neurological: Yes: WNL, Alert, Oriented ...Motor Strength: WNL Psychiatric: Yes: WNL, Alert, Oriented. No: Agitated, Suicidal Ideation Labs: Laboratory Results - last 24 hr 08/01/16 08/01/16 08/01/16 06:05 06:05 23:47 WBC RBC Hgb Hct MCV MCHC RDW Plt Count MPV Neutrophils % Lymphocytes % Monocytes % Eosinophils % Basophils % ESR 29 H Sodium Potassium Chloride Carbon Dioxide Anion Gap BUN Creatinine Creat Clearance w eGFR POC Glucometer 165 Random Glucose Calcium Iron 40 Total Bilirubin AST ALT Alkaline Phosphatase Total Protein Albumin 08/02/16 08/02/16 08/02/16 06:20 06:20 06:52 WBC 7.4 D RBC 3.09 L Hgb 10.8 L Hct 32.2 L MCV 104.0 H MCHC 33.6 RDW 15.7 Plt Count 148 MPV 9.7 Neutrophils % 89.9 H Lymphocytes % 3.0 L D Monocytes % 6.5 Eosinophils % 0.2 D Basophils % 0.4 ESR Sodium 135 L Potassium 4.2 Chloride 103 Carbon Dioxide 25 Anion Gap 7 L BUN 50 H Creatinine 1.7 H Creat Clearance w eGFR 38.50 POC Glucometer 139 Random Glucose 131 H Calcium 8.9 Iron Total Bilirubin 0.7 AST 47 H ALT 41 Alkaline Phosphatase 109 Total Protein 6.7 Albumin 3.0 L Problem List - Problems (1) Hematuria Code(s): R31.9 - HEMATURIA, UNSPECIFIED (2) Urinary retention Code(s): R33.9 - RETENTION OF URINE, UNSPECIFIED (3) ASHLYN (acute kidney injury) Code(s): N17.9 - ACUTE KIDNEY FAILURE, UNSPECIFIED (4) ASHD (arteriosclerotic heart disease) Code(s): I25.10 - ATHSCL HEART DISEASE OF [place] CORONARY ARTERY W/O ANG PCTRS (5) Anemia Code(s): D64.9 - ANEMIA, UNSPECIFIED Qualifiers: Anemia type: unspecified type Qualified Code(s): D64.9 - Anemia, unspecified (6) CHF (congestive heart failure) Code(s): I50.9 - HEART FAILURE, UNSPECIFIED Qualifiers: Congestive heart failure type: unspecified congestive heart failure type Congestive heart failure chronicity: acute on chronic Qualified Code(s ): I50.9 - Heart failure, unspecified (7) COPD (chronic obstructive pulmonary disease) Code(s): J44.9 - CHRONIC OBSTRUCTIVE PULMONARY DISEASE, UNSPECIFIED Qualifiers : COPD type: chronic bronchitis (8) Hx of CABG Code(s): Z95.1 - PRESENCE OF AORTOCORONARY BYPASS GRAFT (9) ICD (implantable cardioverter-defibrillator) in place Code(s): Z95.810 - PRESENCE OF AUTOMATIC (IMPLANTABLE) CARDIAC DEFIBRILLATOR (10) Cough Code(s): R05 - COUGH PLAN INHALED BRONCHODILATORS ANTITUSSIVES EVALUATION NOTED ANTIBIOTICS MONITOR LYTES MONITOR URINE OUTPUT Dr Diggs
[2016-08-02] MEDS ORDERED: CLOPIDOGREL BISULFATE 75 MG TABLET (FP) PO SCH (10:00)
[2016-08-02] MEDS ORDERED: ASPIRIN 81 MG CHEWABLE TABLETS PO SCH (10:00)
[2016-08-02] MEDS: BACITRACIN 30 GM TUBE TOPICAL OINTMENT TP SCH (10:20)
[2016-08-02] MEDS: RANITIDINE HCL 150 MG TABLET (FP) PO SCH ×2 (10:20→21:58)
[2016-08-02] MEDS: FUROSEMIDE 40 MG/4 ML INJECTABLE VIAL IVPUSH SCH (10:20)
[2016-08-02] MEDS: CARVEDILOL 3.125 MG TABLET (FP) PO SCH ×2 (10:20→21:58)
[2016-08-02] MEDS: TAMSULOSIN HCL 0.4 MG CAP.ER.24H (FP) PO SCH (10:22)
[2016-08-02] MEDS: LEVOFLOXACIN 250 MG IVPB 50 ML IVPB SCH (10:22)
--- NOTE | 2016-08-02 10:58 | CONSULT ---
Consult Consult Specialty:: Cardiology Referred by:: Dr. 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 He also has enlarged prostate, kidney stones and UTIs for which he was treated. He recently was sent home after treatment for urinary retention and pneumonia and now returns with decreased urine output for the past few days. He appears a little lethargic this am, but in general does not complain of chest pain, shortness of breath or palpitations. He does not have fever or chills. No nausea, vomiting or diarrhea. He is planned for cystoscopy today and was requested a cardiac clearance. - History Source History Provided By: Medical Record Limitations to Obtaining History: Clinical Condition - Past Medical History Cardio/Vascular: Yes: CAD (CABG), HTN, Mitral Insufficiency, Other (ICD for induced ventricular tachycardia) Pulmonary: Yes: COPD Gastrointestinal: Yes: Other (recent C diff colitis, gallstones, chronic cholecystitis) Renal/: Yes: Renal Failure (had ARF last month in September creat bumped to 2), BPH, Renal Calculi Infectious Disease: Yes: C-Diff Musculoskeletal: Yes: Other (L foot wound s/p partial amputation) Endocrine: Yes: Diabetes Mellitus, Other (diabetic neuropathy) - Past Surgical History Past Surgical History: Yes: AICD, Amputation (TMA), Bypass, CABG - Alcohol/Substance Use Hx Alcohol Use: No History of Substance Use: reports: None - Smoking History Smoking history: Former smoker Have you smoked in the past 12 months: No Aproximately how many cigarettes per day: 0 If you are a former smoker, when did you quit?: 2009 - Social History Usual Living Arrangement: With Spouse ADL: Family Assistance History of Recent Travel: No Home Medications - Allergies Allergies/Adverse Reactions: Allergies Allergy/AdvReac Type Severity Reaction Status Date / Time No Known Allergies Allergy Verified 07/31/16 11:55 - Home Medications Home Medications: Ambulatory Orders Ascorbate Calcium [Vitamin C] 500 mg PO DAILY 01/20/14 Aspirin [ASA -] 81 mg PO DAILY 01/20/14 Carvedilol 3.125 mg PO BID 01/20/14 Clopidogrel Bisulfate [Plavix -] 75 mg PO DAILY 01/20/14 Dutasteride [Avodart] 0.5 mg PO HS 01/20/14 Folic Acid - 1 mg PO DAILY 01/20/14 Levothyroxine [Synthroid -] 50 mcg PO SUFRSA 01/20/14 Pregabalin [Lyrica -] 50 mg PO DAILY 01/20/14 Ranitidine HCl [Zantac] 150 mg PO BID 01/20/14 Tamsulosin HCl [Flomax -] 0.4 mg PO DAILY 01/20/14 Furosemide [Lasix -] 20 mg PO DAILY 10/25/15 Magnesium 200 mg PO DAILY 10/25/15 Levothyroxine [Synthroid -] 75 mcg PO MOTUWETH 07/21/16 Acetaminophen [Tylenol .Regular Strength -] 650 mg PO Q6H PRN #0 tablet Bacitracin - [Bacitracin Topical Ointment -] 1 applic TP DAILY tube 07/27/16 Sodium Chloride Nasal [place] [[place] Nasal [place] -] 2 spray NS Q4H PRN #0 bottle 07/27/16 Family Disease History - Family Disease History Family Disease History: Heart Disease: Mother, Brother (liver CA), CA: Brother Review of Systems - Review of Systems Constitutional: reports: Lethargy. denies: Chills, Fever Cardiovascular: denies: Chest Pain, Palpitations, Shortness of Breath Respiratory: denies: Cough, Hemoptysis, Orthopnea, PND, SOB Gastrointestinal: denies: Abdominal Pain, Constipation, Diarrhea, Melena, Nausea , Rectal Bleeding, Vomiting Genitourinary: reports: Hematuria Musculoskeletal: denies: Joint Pain Neurological: denies: Dizziness, Headache, Seizure, Syncope Vital Signs: Vital Signs Temperature 98.5 F 08/02/16 09:00 Pulse Rate 100 H 08/02/16 09:00 Respiratory Rate 18 08/02/16 09:00 Blood Pressure 122/88 08/02/16 09:00 O2 Sat by Pulse Oximetry (%) 98 08/01/16 21:00 Neck: Yes: Supple Respiratory: Yes: Diminished Gastrointestinal: Yes: Normal Bowel Sounds, Soft. No: Tenderness Cardiovascular: Yes: Regular Rate and Rhythm JVD: No PMI: Non-Displaced Heart Sounds: Yes: S2. No: Gallop Extremities: Yes: Amputation Edema: No - Other Data Labs, Other Data: CBC, BMP 08/02/16 06:20 08/02/16 06:20 INR, PTT INR 1.15 (0.82-1.09) H 07/31/16 13:20 Laboratory Results - last 24 hr 08/01/16 08/01/16 08/02/16 06:05 23:47 06:20 WBC 7.4 D RBC 3.09 L Hgb 10.8 L Hct 32.2 L MCV 104.0 H MCHC 33.6 RDW 15.7 Plt Count 148 MPV 9.7 Neutrophils % 89.9 H Lymphocytes % 3.0 L D Monocytes % 6.5 Eosinophils % 0.2 D Basophils % 0.4 Sodium Potassium Chloride Carbon Dioxide Anion Gap BUN Creatinine Creat Clearance w eGFR POC Glucometer 165 Random Glucose Calcium Iron 40 Total Bilirubin AST ALT Alkaline Phosphatase Total Protein Albumin 08/02/16 08/02/16 06:20 06:52 WBC RBC Hgb Hct MCV MCHC RDW Plt Count MPV Neutrophils % Lymphocytes % Monocytes % Eosinophils % Basophils % Sodium 135 L Potassium 4.2 Chloride 103 Carbon Dioxide 25 Anion Gap 7 L BUN 50 H Creatinine 1.7 H Creat Clearance w eGFR 38.50 POC Glucometer 139 Random Glucose 131 H Calcium 8.9 Iron Total Bilirubin 0.7 AST 47 H ALT 41 Alkaline Phosphatase 109 Total Protein 6.7 Albumin 3.0 L Echo: Report Reviewed (Recent echocardiography showed mild to moderate reduction in LV function, moderate MR and mild TR) Imaging - Results Chest X-ray: Report Reviewed (Some pleural effusion, atelectasis and infiltrates in left base) EKG: Report Reviewed Problem List - Problems (1) Benign localized hyperplasia of prostate with urinary obstruction Code(s): N40.1 - BENIGN PROSTATIC HYPERPLASIA WITH LOWER URINARY TRACT SYMP N13.8 - OTHER OBSTRUCTIVE AND REFLUX UROPATHY (2) Hematuria Code(s): R31.9 - HEMATURIA, UNSPECIFIED (3) Urinary retention Code(s): R33.9 - RETENTION OF URINE, UNSPECIFIED (4) ASHD (arteriosclerotic heart disease) Code(s): I25.10 - ATHSCL HEART DISEASE OF [place] CORONARY ARTERY W/O ANG PCTRS (5) COPD (chronic obstructive pulmonary disease) Code(s): J44.9 - CHRONIC OBSTRUCTIVE PULMONARY DISEASE, UNSPECIFIED Qualifiers : COPD type: chronic bronchitis (6) Diabetes mellitus Code(s): E11.9 - TYPE 2 DIABETES MELLITUS WITHOUT COMPLICATIONS Qualifiers: Diabetes mellitus type: type 2 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) (7) Hx of CABG Code(s): Z95.1 - PRESENCE OF AORTOCORONARY BYPASS GRAFT (8) Hypothyroidism Code(s): E03.9 - HYPOTHYROIDISM, UNSPECIFIED Qualifiers: Hypothyroidism type: unspecified Qualified Code(s): E03.9 - Hypothyroidism, unspecified (9) ICD (implantable cardioverter-defibrillator) in place Code(s): Z95.810 - PRESENCE OF AUTOMATIC (IMPLANTABLE) CARDIAC DEFIBRILLATOR (10) Peripheral arterial disease Code(s): I73.9 - PERIPHERAL VASCULAR DISEASE, UNSPECIFIED (11) Pneumonia Code(s): J18.9 - PNEUMONIA, UNSPECIFIED ORGANISM Qualifiers: Laterality: bilateral (12) Systolic dysfunction with acute on chronic heart failure Code(s): I50.23 - ACUTE ON CHRONIC SYSTOLIC (CONGESTIVE) HEART FAILURE (13) UTI (lower urinary tract infection) Code(s): N39.0 - URINARY TRACT INFECTION, SITE NOT SPECIFIED (14) HTN (hypertension) Code(s): I10 - ESSENTIAL (PRIMARY) HYPERTENSION (15) Hypercholesterolemia Code(s): E78.0 - PURE HYPERCHOLESTEROLEMIA * DO NOT USE * (16) Carotid artery disease Code(s): I77.9 - DISORDER OF ARTERIES AND ARTERIOLES, UNSPECIFIED Assessment/Plan 1. Urinary retention with decreased output, BPH rule out obstruction 2. CAD S/P CABG 3. 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 HTN/HCVD 5. Hypercholesterolemia 6. Diabetes Mellitus 7. 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 Carotid artery disease 9. History of UTIs and pneumonia PLAN: 1. There appears to be no absolute contraindication in proceeding with planned cystoscopy in view of absence of ischemic symptoms, decompensated congestive heart failure or malignant arrhythmia. Post operative ECG advised 2. Continue Carvedilol 3. Hold ASA and Plavix until further instruction 4. Diuretics IV 5. Antibiotic coverage Further plans are to follow Keyon Fair MD
--- NOTE | 2016-08-02 11:51 | PN ---
Progress Note, Physician Chief Complaint: in bed was agitated and anxious - Current Medication List Current Medications: Active Medications Acetaminophen (Tylenol -) 650 mg PO Q6H PRN PRN Reason: FEVER OR PAIN Last Admin: 08/01/16 23:49 Dose: 650 mg Albuterol/Ipratropium (Duoneb -) 1 amp NEB Q4H PRN PRN Reason: SHORTNESS OF BREATH Alprazolam (Xanax -) 0.25 mg PO BID PRN PRN Reason: ANXIETY Last Admin: 08/01/16 13:59 Dose: 0.25 mg Ascorbic Acid (Vitamin C -) 500 mg PO DAILY [facility] Last Admin: 08/01/16 09:50 Dose: 500 mg Aspirin (Asa -) 81 mg PO DAILY [facility] Bacitracin (Bacitracin -) 1 applic TP DAILY [facility] Last Admin: 08/02/16 10:20 Dose: 1 applic Carvedilol (Coreg -) 3.125 mg PO BID [facility] Last Admin: 08/02/16 10:20 Dose: 3.125 mg Clopidogrel Bisulfate (Plavix -) 75 mg PO DAILY [facility] Dutasteride (Avodart -) 0.5 mg PO HS [facility] Last Admin: 08/01/16 22:48 Dose: 0.5 mg Folic Acid (Folic Acid -) 1 mg PO DAILY [facility] Last Admin: 08/01/16 09:51 Dose: 1 mg Furosemide (Lasix Injection -) 20 mg IVPUSH DAILY [facility] Last Admin: 08/02/16 10:20 Dose: 20 mg Guaifenesin (Diabetic Tussin Dm -) 10 ml PO Q6H PRN PRN Reason: COUGH Levofloxacin (Levaquin 250 Mg Premixed Ivpb -) 50 mls @ 50 mls/hr IVPB DAILY [facility] Last Admin: 08/02/16 10:22 Dose: 50 mls/hr Levothyroxine Sodium (Synthroid -) 50 mcg PO SuFrSa@0700 [facility] Levothyroxine Sodium (Synthroid -) 75 mcg PO MoTuWeTh@0700 [facility] Last Admin: 08/02/16 06:53 Dose: 75 mcg Pregabalin (Lyrica -) 50 mg PO DAILY [facility] Last Admin: 08/01/16 09:50 Dose: 50 mg Ranitidine HCl (Zantac -) 150 mg PO BID [facility] Last Admin: 08/02/16 10:20 Dose: 150 mg Sodium Chloride ([place] Nasal [place] -) 2 spray NS Q4H PRN PRN Reason: NASAL CONGESTION Last Admin: 08/02/16 06:54 Dose: 2 sprays Tamsulosin HCl (Flomax -) 0.4 mg PO DAILY [facility] Last Admin: 08/02/16 10:22 Dose: 0.4 mg - Objective Vital Signs: Vital Signs Temperature 98.5 F 08/02/16 09:00 Pulse Rate 100 H 08/02/16 09:00 Respiratory Rate 18 08/02/16 09:00 Blood Pressure 122/88 08/02/16 09:00 O2 Sat by Pulse Oximetry (%) 98 08/01/16 21:00 Constitutional: Yes: Anxious Eyes: Yes: Conjunctiva Clear HENT: Yes: Atraumatic Neck: Yes: Supple Cardiovascular: Yes: Regular Rate and Rhythm Respiratory: Yes: CTA Bilaterally Gastrointestinal: Yes: Soft. No: Distention, Tenderness Genitourinary: No: CVA Tenderness - Left, CVA Tenderness - Right Musculoskeletal: No: Joint Stiffness, Joint Swelling Extremities: No: Cold, Cool Edema: No Peripheral Pulses WNL: Yes Integumentary: No: Pressure Ulcer, Venous Stasis Changes Neurological: Yes: WNL, Alert, Oriented ...Motor Strength: WNL Psychiatric: Yes: WNL, Alert, Oriented. No: Agitated Labs: CBC, BMP 08/02/16 06:20 08/02/16 06:20 INR, PTT INR 1.15 (0.82-1.09) H 07/31/16 13:20 - ....Imaging Other: Report Reviewed Assessment/Plan The patient is a 86 year old male, with a significant past medical history of CAD, PVD, diabetes,hypertension, CHF, CABG s/p 3 stents and defibrillator, COPD enlarged prostate, kidney stones and UTIs, who presents to the emergency department via ems from home for decreased urinary output s/p discharge from the hospital 4 days ago for urinary retention and pneumonia. The patient states he was urinating normally at discharge, but reports a decreasing urinary output over the last day. Aguero inserted in ER 300 cc urine drained; developed clots and hematuria and pain admit for further urinary retention and hematuria management eval, po levaquin restart ASA & Plavix COPD O2 dep, cough, mild CHF: iv lasix (saw cardio few days ago); pulm eval for cough can not use TEDs/ SCDs sec to h/o PVD falls decubs aspiration pfx f/u labs d/w pt and , d/w ER staff; PT rehab and CM eval
[2016-08-02] MEDS: ASCORBIC ACID 500 MG TABLET (FP) PO SCH (12:39)
[2016-08-02] MEDS: FOLIC ACID 1 MG TABLET (FP) PO SCH (12:39)
[2016-08-02] MEDS: PREGABALIN 50 MG CAPSULE PO SCH (12:39)
[2016-08-02] MEDS ORDERED: DEXAMETHASONE SOD PHOSPHATE 4 MG/1 ML VIAL ONE (13:22)
[2016-08-02] MEDS ORDERED: MIDAZOLAM HCL 2 MG/2 ML SINGLE DOSE VIAL ONE (13:23)
[2016-08-02] MEDS ORDERED: ceFAZolin SODIUM 1 GM VIAL IVPB ONE (13:48)
[2016-08-02] MEDS ORDERED: ceFAZolin SODIUM 1 GM VIAL ONE (13:48)
[2016-08-02] MEDS ORDERED: SODIUM CHLORIDE NASAL SPRAY 44 ML BOTTLE NS PRN (15:21)
[2016-08-02] MEDS ORDERED: ALBUTEROL SO4 2.5/IPRATROPIUM 0.5 INH SOL 3 ML VIAL.NEB. NEB PRN (15:21)
[2016-08-02] MEDS ORDERED: ACETAMINOPHEN 325 MG TABLET (FP) PO PRN (15:21)
[2016-08-02] MEDS ORDERED: ALPRAZolam 0.25 MG TABLET PO PRN (15:21)
[2016-08-02] MEDS ORDERED: guaiFENesin/D-METHORPHAN HB 10 ML UNIT-DOSE CUPS PO PRN (15:21)
[2016-08-02 16:14] LABS: BASOPHIL 0.2 % (0-2.0); MCH 34.5 pg (25.7-33.7); MCHC 33.6 g/dl (32.0-35.9); MEAN CELL VOLUME 102.8 fl (80-96); MEAN PLT VOLUME 9.8 fl (7.5-11.1); NEUTROPHILS 94.2 % (42.8-82.8); PLATELET COUNT 130 K/MM3 (134-434); RDW 15.8 % (11.9-15.9); WHITE BLOOD COUNT 8.6 K/mm3 (4.0-10.0)
[2016-08-02 16:16] LABS: CALCIUM 8.3 mg/dL (8.5-10.1); CREATININE 1.9 mg/dL (0.7-1.3)
--- NOTE | 2016-08-02 16:35 | OP ---
DATE OF OPERATION: 08/02/2016 PREOPERATIVE DIAGNOSIS: Gross hematuria and urinary retention. POSTOPERATIVE DIAGNOSIS: Gross hematuria and urinary retention. PROCEDURE: Cystoscopy, bipolar transurethral resection of the prostate. ANESTHESIA: General. ANESTHESIOLOGIST: Darian Tilley MD SPECIMEN: Prostate chips. FINDINGS: Obstructive prostate tissue. SURGEON: Shaun Nunez MD PREOPERATIVE INDICATION: The patient is an 86-year-old male who comes in, in urinary retention with gross hematuria. Comes to the OR for cystoscopy and TURP. OPERATION: Patient was brought to the OR, placed on the table in the supine position, given general anesthesia and placed in the modified lithotomy position. IV antibiotics were given. Timeout was performed. Cystoscopy was performed. There was evidence of phimosis. The urethra otherwise appeared to be unremarkable. The sphincter was identified. The prostate tissue was noted to be obstructive with lateral lobe hypertrophy and tight bladder neck. The bladder itself had trabeculations throughout. Both UO's were seen. No tumors or stones were seen. Using the bipolar TURP loop, the bladder neck was opened, and the lateral tissue was resected. Good hemostasis was maintained. The prostate chips were evacuated out. The sphincter and the UO's were not injured during the procedure. The scope was removed. A 22-[place] 3-way Aguero catheter was placed for postoperative irrigation. The patient was woken up. SHAUN NUNEZ M.D. [id number]
[2016-08-02] MEDS: DEXTROSE 5%-0.45% SALINE 1,000 ML IV SCH (16:40)
[2016-08-02] MEDS ORDERED: PT OWN MED DRAWER 7, Y5N ONE (21:03)
[2016-08-02] MEDS: NYSTATIN 100,000 UNIT/GM TOPICAL CREAM 15 GM TUBE TP SCH (21:58)
[2016-08-02] MEDS: DUTASTERIDE 0.5 MG CAP (FP) PO SCH (21:58)
[2016-08-03 00:06] LABS: A/G RATIO 0.8 (0.7-1.7); ALBUMIN 2.8 g/dL (2.9-4.4); GLOBULIN, TOTAL 3.4 g/dL (2.2-3.9); M-SPIKE Not Observed g/dL (Not Observed); TOTAL PROTEIN 6.2 g/dL (6.0-8.5)
[2016-08-03] MEDS: DEXTROSE 5%-0.45% SALINE 1,000 ML IV SCH (02:09)
[2016-08-03] MEDS ORDERED: INSULIN (NOVOLOG) ASPART 100 UNITS/ML 10ML VIAL SQ ONE (02:45)
[2016-08-03] MEDS: LEVOTHYROXINE NA 75 MCG TABLET (FP) PO SCH (06:15)
[2016-08-03 07:53] LABS: BASOPHIL 0.5 % (0-2.0); MCH 34.8 pg (25.7-33.7); MEAN CELL VOLUME 102.5 fl (80-96); MEAN PLT VOLUME 9.8 fl (7.5-11.1); NEUTROPHILS 91.4 % (42.8-82.8); PLATELET COUNT 121 K/MM3 (134-434); WHITE BLOOD COUNT 9.5 K/mm3 (4.0-10.0)
[2016-08-03 08:23] LABS: CALCIUM 7.9 mg/dL (8.5-10.1)
[2016-08-03] MEDS ORDERED: PT OWN MED DRAWER 7, Y5N ONE ×2 (09:48→21:55)
[2016-08-03] MEDS: CARVEDILOL 3.125 MG TABLET (FP) PO SCH ×2 (09:51→22:37)
[2016-08-03] MEDS: TAMSULOSIN HCL 0.4 MG CAP.ER.24H (FP) PO SCH (09:51)
[2016-08-03] MEDS: ASPIRIN 81 MG CHEWABLE TABLETS PO SCH (09:51)
[2016-08-03] MEDS: FOLIC ACID 1 MG TABLET (FP) PO SCH (09:52)
[2016-08-03] MEDS: PREGABALIN 50 MG CAPSULE PO SCH (09:52)
[2016-08-03] MEDS: ASCORBIC ACID 500 MG TABLET (FP) PO SCH (09:53)
[2016-08-03] MEDS: RANITIDINE HCL 150 MG TABLET (FP) PO SCH ×2 (09:53→22:38)
[2016-08-03] MEDS: LEVOFLOXACIN 250 MG IVPB 50 ML IVPB SCH (09:53)
[2016-08-03] MEDS: CLOPIDOGREL BISULFATE 75 MG TABLET (FP) PO SCH (09:53)
[2016-08-03] MEDS: NYSTATIN 100,000 UNIT/GM TOPICAL CREAM 15 GM TUBE TP SCH ×2 (09:54→22:38)
[2016-08-03] MEDS: BACITRACIN 30 GM TUBE TOPICAL OINTMENT TP SCH (09:54)
[2016-08-03] MEDS ORDERED: FUROSEMIDE 40 MG/4 ML INJECTABLE VIAL IVPUSH SCH (10:00)
--- NOTE | 2016-08-03 11:33 | PN ---
Progress Note (short form) - Note Progress Note: POD #1 from TURP Afeb, VSS abd soft urine is clear on CBI Imp- S/P TURP continue CBI trial of void 08/04/16 Problem List - Problems (1) Benign localized hyperplasia of prostate with urinary obstruction Code(s): N40.1 - BENIGN PROSTATIC HYPERPLASIA WITH LOWER URINARY TRACT SYMP N13.8 - OTHER OBSTRUCTIVE AND REFLUX UROPATHY
--- NOTE | 2016-08-03 12:08 | PN ---
Progress Note (short form) - Note Progress Note: Renal Consult for ASHLYN on CKD This is a 86 year old Gentleman with PMhx of CKD Stage 3 (baseline Cr 1.4-1.6) CAD s/p CABG, HF with LV dysfunction, PVD s/p amputation, DM, HTN, BPH, Nephrolithiasis who presented with complaints of inability to urinate and found to have bladder outflow obsruction and now is s/p TURP with BUN/cr of 56/2. Pt with CKD. S/p TURP yesterday. Was on IV lasix. No NSAID or contrast exposure. On CBI with light pink urine. No flank pain. No sob, chest pain. No N/V/D. on Abx currenty. No rash. PMhx: as above Allergies: NKDA Family hx: [place] Social Hx: No T/A/D ROS: as per HPI, all other pertinent ros negative Home Meds: Medication Instructions Recorded Ascorbate Calcium [Vitamin C] 500 mg PO DAILY 01/20/14 Aspirin [ASA -] 81 mg PO DAILY 01/20/14 Carvedilol 3.125 mg PO BID 01/20/14 Clopidogrel Bisulfate [Plavix -] 75 mg PO DAILY 01/20/14 Dutasteride [Avodart] 0.5 mg PO HS 01/20/14 Folic Acid - 1 mg PO DAILY 01/20/14 Levothyroxine [Synthroid -] 50 mcg PO SUFRSA 01/20/14 Pregabalin [Lyrica -] 50 mg PO DAILY 01/20/14 Ranitidine HCl [Zantac] 150 mg PO BID 01/20/14 Tamsulosin HCl [Flomax -] 0.4 mg PO DAILY 01/20/14 Furosemide [Lasix -] 20 mg PO DAILY 10/25/15 Magnesium 200 mg PO DAILY 10/25/15 Levothyroxine [Synthroid -] 75 mcg PO MOTUWETH 07/21/16 Acetaminophen [Tylenol .Regular 650 mg PO Q6H PRN #0 tablet 07/27/16 Strength -] Bacitracin - [Bacitracin Topical 1 applic TP DAILY tube 07/27/16 Ointment -] Sodium Chloride Nasal [place] [[place] 2 spray NS Q4H PRN #0 bottle 07/27/16 [place] Nasal [place] -] Vital Signs Temperature 98.9 F 08/03/16 05:53 Pulse Rate 80 08/03/16 05:53 Respiratory Rate 20 08/03/16 05:53 Blood Pressure 98/50 08/03/16 07:26 O2 Sat by Pulse Oximetry (%) 99 08/02/16 16:40 Intake & Output 07/31/16 08/01/16 08/02/16 08/03/16 23:59 23:59 23:59 23:59 Intake Total 382 905 6948 Output Total 300 1500 41207 7300 Balance 478 [phone] Weight 145 lb 0.004 oz 149 lb 3 oz 142 lb 14.4 oz 145 lb 4.8 oz Gen: NAD, awake and alert HEENT: NC/AT, No JVD, Neck Supple CVS: RRR, No M/R Lungs: CTA, no rales or wheeze Abd: soft NT/ND Ext: No edema, clubbing or cyanosis : No bladder distension, CBI in place. CBC, BMP 08/03/16 06:30 08/03/16 06:30 Current Medications Acetaminophen (Tylenol -) 650 mg PO Q6H PRN PRN Reason: FEVER OR PAIN Albuterol/Ipratropium (Duoneb -) 1 amp NEB Q4H PRN PRN Reason: SHORTNESS OF BREATH Alprazolam (Xanax -) 0.25 mg PO BID PRN PRN Reason: ANXIETY Ascorbic Acid (Vitamin C -) 500 mg PO DAILY [facility] Last Admin: 08/03/16 09:53 Dose: 500 mg Aspirin (Asa -) 81 mg PO DAILY [facility] Last Admin: 08/03/16 09:51 Dose: 81 mg Bacitracin (Bacitracin -) 1 applic TP DAILY [facility] Last Admin: 08/03/16 09:54 Dose: 1 applic Carvedilol (Coreg -) 3.125 mg PO BID [facility] Last Admin: 08/03/16 09:51 Dose: Not Given Clopidogrel Bisulfate (Plavix -) 75 mg PO DAILY [facility] Last Admin: 08/03/16 09:53 Dose: 75 mg Dutasteride (Avodart -) 0.5 mg PO HS [facility] Last Admin: 08/02/16 21:58 Dose: 0.5 mg Fentanyl (Sublimaze Injection -) 25 mcg IVPUSH [id number] PRN PRN Reason: PAIN Stop: 08/05/16 14:27 Folic Acid (Folic Acid -) 1 mg PO DAILY [facility] Last Admin: 08/03/16 09:52 Dose: 1 mg Furosemide (Lasix Injection -) 20 mg IVPUSH DAILY [facility] Last Admin: 08/03/16 09:54 Dose: Not Given Guaifenesin (Robitussin Dm -) 10 ml PO Q6H PRN PRN Reason: COUGH Dextrose/Sodium Chloride (D5-1/2ns -) 1,000 mls @ 125 mls/hr IV ASDIR [facility] Last Admin: 08/03/16 02:09 Dose: 125 mls/hr Levofloxacin (Levaquin 250 Mg Premixed Ivpb -) 50 mls @ 50 mls/hr IVPB DAILY [facility] Last Admin: 08/03/16 09:53 Dose: 50 mls/hr Levothyroxine Sodium (Synthroid -) 50 mcg PO SuFrSa@0700 [facility] Levothyroxine Sodium (Synthroid -) 75 mcg PO MoTuWeTh@0700 [facility] Last Admin: 08/03/16 06:15 Dose: 75 mcg Nystatin (Mycostatin Cream -) 1 applic TP BID [facility] Last Admin: 08/03/16 09:54 Dose: 1 applic Pregabalin (Lyrica -) 50 mg PO DAILY [facility] Last Admin: 08/03/16 09:52 Dose: 50 mg Ranitidine HCl (Zantac -) 150 mg PO BID [facility] Last Admin: 08/03/16 09:53 Dose: 150 mg Sodium Chloride ([place] Nasal [place] -) 2 spray NS Q4H PRN PRN Reason: NASAL CONGESTION Tamsulosin HCl (Flomax -) 0.4 mg PO DAILY [facility] Last Admin: 08/03/16 09:51 Dose: 0.4 mg A/P 56 year old Gentleman with PMhx of CKD Stage 3 (baseline Cr 1.4-1.6)CAD s/p CABG , HF 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 volume depletion vs. AIN Baseline Cr 1.4-1.6 Cr uptrended this admission no overt hyotension or nephrotoxic exposure s/p TURP and no on CBI so exact urine output cannot be quantified Urine studies will not be helpful as pt is on CBI Check Renal US to monitor for obstructing stones D/c IVF as pt appears evolemic and can tolerate PO diet Dose all meds for Cr Cl ~30 avoid nsaids, contrast #BPH/Hematuria s/p TURP on CBI Urology following continue flomax #Hx of LV dysfunction/CHF Pt is evolemic at this time Change Lasix back to PO as pt is not acutely decompensated monitor volume status on CBI (pt can have some absorption) Thank you Will follow Oscar [place] DO
--- NOTE | 2016-08-03 13:48 | PN ---
Progress Note, Physician History of Present Illness: Post TURP hematuria cleared with CBI. - Current Medication List Current Medications: Active Medications Acetaminophen (Tylenol -) 650 mg PO Q6H PRN PRN Reason: FEVER OR PAIN Albuterol/Ipratropium (Duoneb -) 1 amp NEB Q4H PRN PRN Reason: SHORTNESS OF BREATH Alprazolam (Xanax -) 0.25 mg PO BID PRN PRN Reason: ANXIETY Ascorbic Acid (Vitamin C -) 500 mg PO DAILY [facility] Last Admin: 08/03/16 09:53 Dose: 500 mg Aspirin (Asa -) 81 mg PO DAILY [facility] Last Admin: 08/03/16 09:51 Dose: 81 mg Bacitracin (Bacitracin -) 1 applic TP DAILY [facility] Last Admin: 08/03/16 09:54 Dose: 1 applic Carvedilol (Coreg -) 3.125 mg PO BID [facility] Last Admin: 08/03/16 09:51 Dose: Not Given Clopidogrel Bisulfate (Plavix -) 75 mg PO DAILY [facility] Last Admin: 08/03/16 09:53 Dose: 75 mg Dutasteride (Avodart -) 0.5 mg PO HS [facility] Last Admin: 08/02/16 21:58 Dose: 0.5 mg Fentanyl (Sublimaze Injection -) 25 mcg IVPUSH [id number] PRN PRN Reason: PAIN Stop: 08/05/16 14:27 Folic Acid (Folic Acid -) 1 mg PO DAILY [facility] Last Admin: 08/03/16 09:52 Dose: 1 mg Furosemide (Lasix -) 20 mg PO DAILY [facility] Guaifenesin (Robitussin Dm -) 10 ml PO Q6H PRN PRN Reason: COUGH Levofloxacin (Levaquin 250 Mg Premixed Ivpb -) 50 mls @ 50 mls/hr IVPB DAILY [facility] Last Admin: 08/03/16 09:53 Dose: 50 mls/hr Levothyroxine Sodium (Synthroid -) 50 mcg PO SuFrSa@0700 [facility] Levothyroxine Sodium (Synthroid -) 75 mcg PO MoTuWeTh@0700 [facility] Last Admin: 08/03/16 06:15 Dose: 75 mcg Nystatin (Mycostatin Cream -) 1 applic TP BID [facility] Last Admin: 08/03/16 09:54 Dose: 1 applic Pregabalin (Lyrica -) 50 mg PO DAILY [facility] Last Admin: 08/03/16 09:52 Dose: 50 mg Ranitidine HCl (Zantac -) 150 mg PO BID [facility] Last Admin: 08/03/16 09:53 Dose: 150 mg Sodium Chloride ([place] Nasal [place] -) 2 spray NS Q4H PRN PRN Reason: NASAL CONGESTION Tamsulosin HCl (Flomax -) 0.4 mg PO DAILY [facility] Last Admin: 08/03/16 09:51 Dose: 0.4 mg - Objective Vital Signs: Vital Signs Temperature 99.9 F H 08/03/16 09:00 Pulse Rate 79 08/03/16 10:00 Respiratory Rate 22 08/03/16 09:00 Blood Pressure 100/51 08/03/16 10:00 O2 Sat by Pulse Oximetry (%) 99 08/02/16 16:40 Constitutional: Yes: No Distress, Calm Neck: Yes: Supple Cardiovascular: Yes: Regular Rate and Rhythm Respiratory: Yes: Regular, CTA Bilaterally Gastrointestinal: Yes: Normal Bowel Sounds, Soft Genitourinary: Yes: Aguero Present Edema: No Labs: CBC, BMP 08/03/16 06:30 08/03/16 06:30 INR, PTT INR 1.15 (0.82-1.09) H 07/31/16 13:20 Problem List - Problems (1) Benign localized hyperplasia of prostate with urinary obstruction Code(s): N40.1 - BENIGN PROSTATIC HYPERPLASIA WITH LOWER URINARY TRACT SYMP N13.8 - OTHER OBSTRUCTIVE AND REFLUX UROPATHY (2) HTN (hypertension) Code(s): I10 - ESSENTIAL (PRIMARY) HYPERTENSION Qualifiers: Hypertension type: essential hypertension Qualified Code(s): I10 - Essential (primary) hypertension (3) Hematuria Code(s): R31.9 - HEMATURIA, UNSPECIFIED (4) Hypercholesterolemia Code(s): E78.0 - PURE HYPERCHOLESTEROLEMIA * DO NOT USE * (5) Urinary retention Code(s): R33.9 - RETENTION OF URINE, UNSPECIFIED (6) ASHLYN (acute kidney injury) Code(s): N17.9 - ACUTE KIDNEY FAILURE, UNSPECIFIED (7) ASHD (arteriosclerotic heart disease) Code(s): I25.10 - ATHSCL HEART DISEASE OF [place] CORONARY ARTERY W/O ANG PCTRS (8) Anemia Code(s): D64.9 - ANEMIA, UNSPECIFIED Qualifiers: Anemia type: unspecified type Qualified Code(s): D64.9 - Anemia, unspecified (9) Diabetes mellitus Code(s): E11.9 - TYPE 2 DIABETES MELLITUS WITHOUT COMPLICATIONS Qualifiers: Diabetes mellitus type: type 2 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) (10) Hx of CABG Code(s): Z95.1 - PRESENCE OF AORTOCORONARY BYPASS GRAFT (11) Hypothyroidism Code(s): E03.9 - HYPOTHYROIDISM, UNSPECIFIED Qualifiers: Hypothyroidism type: unspecified Qualified Code(s): E03.9 - Hypothyroidism, unspecified (12) ICD (implantable cardioverter-defibrillator) in place Code(s): Z95.810 - PRESENCE OF AUTOMATIC (IMPLANTABLE) CARDIAC DEFIBRILLATOR (13) Peripheral arterial disease Code(s): I73.9 - PERIPHERAL VASCULAR DISEASE, UNSPECIFIED (14) Systolic dysfunction without heart failure Code(s): I51.9 - HEART DISEASE, UNSPECIFIED (15) UTI (lower urinary tract infection) Code(s): N39.0 - URINARY TRACT INFECTION, SITE NOT SPECIFIED (16) S/P TURP (status post transurethral resection of prostate) Code(s): Z90.79 - ACQUIRED ABSENCE OF OTHER GENITAL ORGAN(S) Assessment/Plan 1. Urinary retention with decreased output, BPH post TURP 2. CAD S/P CABG 3. 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 HTN/HCVD 5. Hypercholesterolemia 6. Diabetes Mellitus 7. PVD post LOG DECK TENDER and amputation (TMA) 8. Carotid artery disease 9. Acute on CKD (obstructive) 10. Hypothyroidism PLAN: 1. CBI, voiding trial in AM 2. Continue Carvedilol 3.125 bid 3. Resumed ASA 81 qd and Plavix 75 qd with resolution of hematuria 4. Lasix 20 qd 5. Empiric antibiotic coverage
--- NOTE | 2016-08-03 15:36 | PN ---
Progress Note, Physician History of Present Illness: pulmonary alert,nad,+occ cough,-sob. - Current Medication List Current Medications: Active Medications Acetaminophen (Tylenol -) 650 mg PO Q6H PRN PRN Reason: FEVER OR PAIN Albuterol/Ipratropium (Duoneb -) 1 amp NEB Q4H PRN PRN Reason: SHORTNESS OF BREATH Alprazolam (Xanax -) 0.25 mg PO BID PRN PRN Reason: ANXIETY Ascorbic Acid (Vitamin C -) 500 mg PO DAILY [facility] Last Admin: 08/03/16 09:53 Dose: 500 mg Aspirin (Asa -) 81 mg PO DAILY [facility] Last Admin: 08/03/16 09:51 Dose: 81 mg Bacitracin (Bacitracin -) 1 applic TP DAILY [facility] Last Admin: 08/03/16 09:54 Dose: 1 applic Carvedilol (Coreg -) 3.125 mg PO BID [facility] Last Admin: 08/03/16 09:51 Dose: Not Given Clopidogrel Bisulfate (Plavix -) 75 mg PO DAILY [facility] Last Admin: 08/03/16 09:53 Dose: 75 mg Dutasteride (Avodart -) 0.5 mg PO HS [facility] Last Admin: 08/02/16 21:58 Dose: 0.5 mg Fentanyl (Sublimaze Injection -) 25 mcg IVPUSH [id number] PRN PRN Reason: PAIN Stop: 08/05/16 14:27 Folic Acid (Folic Acid -) 1 mg PO DAILY [facility] Last Admin: 08/03/16 09:52 Dose: 1 mg Furosemide (Lasix -) 20 mg PO DAILY [facility] Guaifenesin (Robitussin Dm -) 10 ml PO Q6H PRN PRN Reason: COUGH Levofloxacin (Levaquin 250 Mg Premixed Ivpb -) 50 mls @ 50 mls/hr IVPB DAILY [facility] Last Admin: 08/03/16 09:53 Dose: 50 mls/hr Levothyroxine Sodium (Synthroid -) 50 mcg PO SuFrSa@0700 [facility] Levothyroxine Sodium (Synthroid -) 75 mcg PO MoTuWeTh@0700 [facility] Last Admin: 08/03/16 06:15 Dose: 75 mcg Nystatin (Mycostatin Cream -) 1 applic TP BID [facility] Last Admin: 08/03/16 09:54 Dose: 1 applic Pregabalin (Lyrica -) 50 mg PO DAILY [facility] Last Admin: 08/03/16 09:52 Dose: 50 mg Ranitidine HCl (Zantac -) 150 mg PO BID [facility] Last Admin: 08/03/16 09:53 Dose: 150 mg Sodium Chloride ([place] Nasal [place] -) 2 spray NS Q4H PRN PRN Reason: NASAL CONGESTION Tamsulosin HCl (Flomax -) 0.4 mg PO DAILY [facility] Last Admin: 08/03/16 09:51 Dose: 0.4 mg - Objective Vital Signs: Vital Signs Temperature 98.9 F 08/03/16 15:16 Pulse Rate 71 08/03/16 15:16 Respiratory Rate 20 08/03/16 15:16 Blood Pressure 109/47 08/03/16 15:16 O2 Sat by Pulse Oximetry (%) 99 08/02/16 16:40 Constitutional: Yes: Well Nourished, Calm Eyes: Yes: WNL HENT: Yes: WNL Neck: Yes: WNL Cardiovascular: Yes: Regular Rate and Rhythm, S1, S2 Respiratory: Yes: Rhonchi (few scattered rhonchi) Gastrointestinal: Yes: Normal Bowel Sounds, Soft Extremities: Yes: WNL Edema: No Labs: CBC, BMP 08/03/16 06:30 08/03/16 06:30 INR, PTT INR 1.15 (0.82-1.09) H 07/31/16 13:20 Problem List - Problems (1) Hematuria Code(s): R31.9 - HEMATURIA, UNSPECIFIED (2) Urinary retention Code(s): R33.9 - RETENTION OF URINE, UNSPECIFIED (3) ASHLYN (acute kidney injury) Code(s): N17.9 - ACUTE KIDNEY FAILURE, UNSPECIFIED (4) ASHD (arteriosclerotic heart disease) Code(s): I25.10 - ATHSCL HEART DISEASE OF [place] CORONARY ARTERY W/O ANG PCTRS (5) Anemia Code(s): D64.9 - ANEMIA, UNSPECIFIED Qualifiers: Anemia type: unspecified type Qualified Code(s): D64.9 - Anemia, unspecified (6) CHF (congestive heart failure) Code(s): I50.9 - HEART FAILURE, UNSPECIFIED Qualifiers: Congestive heart failure type: unspecified congestive heart failure type Congestive heart failure chronicity: acute on chronic Qualified Code(s ): I50.9 - Heart failure, unspecified (7) COPD (chronic obstructive pulmonary disease) Code(s): J44.9 - CHRONIC OBSTRUCTIVE PULMONARY DISEASE, UNSPECIFIED Qualifiers : COPD type: chronic bronchitis (8) Hx of CABG Code(s): Z95.1 - PRESENCE OF AORTOCORONARY BYPASS GRAFT (9) ICD (implantable cardioverter-defibrillator) in place Code(s): Z95.810 - PRESENCE OF AUTOMATIC (IMPLANTABLE) CARDIAC DEFIBRILLATOR (10) Cough Code(s): R05 - COUGH Assessment/Plan IMP COUGH COPD RECENT PNEUMONIA CHF ASHD S/P ICD HEMATURIA URINARY RETENTION S/P TURP ACUTE ON CHRONIC KIDNEY INJURY PLAN INHALED BRONCHODILATORS ANTITUSSIVES EVALUATION ANTIBIOTICS MONITOR LYTES MONITOR URINE OUTPUT DR NAVARRO Problem List - Problems (1) Hematuria Code(s): R31.9 - HEMATURIA, UNSPECIFIED (2) Urinary retention Code(s): R33.9 - RETENTION OF URINE, UNSPECIFIED (3) ASHLYN (acute kidney injury) Code(s): N17.9 - ACUTE KIDNEY FAILURE, UNSPECIFIED (4) ASHD (arteriosclerotic heart disease) Code(s): I25.10 - ATHSCL HEART DISEASE OF [place] CORONARY ARTERY W/O ANG PCTRS (5) Anemia Code(s): D64.9 - ANEMIA, UNSPECIFIED Qualifiers: Anemia type: unspecified type Qualified Code(s): D64.9 - Anemia, unspecified (6) CHF (congestive heart failure) Code(s): I50.9 - HEART FAILURE, UNSPECIFIED Qualifiers: Congestive heart failure type: unspecified congestive heart failure type Congestive heart failure chronicity: acute on chronic Qualified Code(s ): I50.9 - Heart failure, unspecified (7) COPD (chronic obstructive pulmonary disease) Code(s): J44.9 - CHRONIC OBSTRUCTIVE PULMONARY DISEASE, UNSPECIFIED Qualifiers : COPD type: chronic bronchitis (8) Hx of CABG Code(s): Z95.1 - PRESENCE OF AORTOCORONARY BYPASS GRAFT (9) ICD (implantable cardioverter-defibrillator) in place Code(s): Z95.810 - PRESENCE OF AUTOMATIC (IMPLANTABLE) CARDIAC DEFIBRILLATOR (10) Cough Code(s): R05 - COUGH
--- NOTE | 2016-08-03 19:41 | CONSULT ---
Consult - text type - Consultation Consultation Note: Patient is an 86 year old male with underlying history of CAD, CABG, PCI/stents , LV systolic dysfunction S/P ICD (Medtronic) for induced ventricular tachycardia, HTN, IDDM and PAD with multiple revascularization and amputation and carotid stenosis. He also has enlarged prostate, kidney stones and UTIs for which he was treated. He recently was sent home after treatment for urinary retention and pneumonia and now returns with decreased urine output for the past few days. He appears a little lethargic this am, but in general does not complain of chest pain, shortness of breath or palpitations. He does not have fever or chills. No nausea, vomiting or diarrhea. - Past Medical History Cardio/Vascular: Yes: CAD (CABG), HTN, Mitral Insufficiency, Other (ICD for induced ventricular tachycardia) Pulmonary: Yes: COPD Gastrointestinal: Yes: Other (recent C diff colitis, gallstones, chronic cholecystitis) Renal/: Yes: Renal Failure (had ARF last month in September creat bumped to 2), BPH, Renal Calculi Infectious Disease: Yes: C-Diff Musculoskeletal: Yes: Other (L foot wound s/p partial amputation) Endocrine: Yes: Diabetes Mellitus, Other (diabetic neuropathy) - Past Surgical History Past Surgical History: Yes: AICD, Amputation (TMA), Bypass, CABG - Smoking History Smoking history: Former smoker - Social History Usual Living Arrangement: With Spouse ADL: Family Assistance Home Medications - Allergies Allergies/Adverse Reactions: Allergies Allergy/AdvReac Type Severity Reaction Status Date / Time No Known Allergies Allergy Verified 07/31/16 11:55 - Home Medications Home Medications: Ambulatory Orders Ascorbate Calcium [Vitamin C] 500 mg PO DAILY 01/20/14 Aspirin [ASA -] 81 mg PO DAILY 01/20/14 Carvedilol 3.125 mg PO BID 01/20/14 Clopidogrel Bisulfate [Plavix -] 75 mg PO DAILY 01/20/14 Dutasteride [Avodart] 0.5 mg PO HS 01/20/14 Folic Acid - 1 mg PO DAILY 01/20/14 Levothyroxine [Synthroid -] 50 mcg PO SUFRSA 01/20/14 Pregabalin [Lyrica -] 50 mg PO DAILY 01/20/14 Ranitidine HCl [Zantac] 150 mg PO BID 01/20/14 Tamsulosin HCl [Flomax -] 0.4 mg PO DAILY 01/20/14 Furosemide [Lasix -] 20 mg PO DAILY 10/25/15 Magnesium 200 mg PO DAILY 10/25/15 Levothyroxine [Synthroid -] 75 mcg PO MOTUWETH 07/21/16 Acetaminophen [Tylenol .Regular Strength -] 650 mg PO Q6H PRN #0 tablet Bacitracin - [Bacitracin Topical Ointment -] 1 applic TP DAILY tube 07/27/16 Sodium Chloride Nasal [place] [[place] Nasal [place] -] 2 spray NS Q4H PRN #0 bottle 07/27/16 Current Medications Acetaminophen (Tylenol -) 650 mg PO Q6H PRN PRN Reason: FEVER OR PAIN Albuterol/Ipratropium (Duoneb -) 1 amp NEB Q4H PRN PRN Reason: SHORTNESS OF BREATH Alprazolam (Xanax -) 0.25 mg PO BID PRN PRN Reason: ANXIETY Ascorbic Acid (Vitamin C -) 500 mg PO DAILY [facility] Last Admin: 08/03/16 09:53 Dose: 500 mg Aspirin (Asa -) 81 mg PO DAILY [facility] Last Admin: 08/03/16 09:51 Dose: 81 mg Bacitracin (Bacitracin -) 1 applic TP DAILY [facility] Last Admin: 08/03/16 09:54 Dose: 1 applic Carvedilol (Coreg -) 3.125 mg PO BID [facility] Last Admin: 08/03/16 09:51 Dose: Not Given Clopidogrel Bisulfate (Plavix -) 75 mg PO DAILY [facility] Last Admin: 08/03/16 09:53 Dose: 75 mg Dutasteride (Avodart -) 0.5 mg PO HS [facility] Last Admin: 08/02/16 21:58 Dose: 0.5 mg Fentanyl (Sublimaze Injection -) 25 mcg IVPUSH [id number] PRN PRN Reason: PAIN Stop: 08/05/16 14:27 Folic Acid (Folic Acid -) 1 mg PO DAILY [facility] Last Admin: 08/03/16 09:52 Dose: 1 mg Furosemide (Lasix -) 20 mg PO DAILY [facility] Guaifenesin (Robitussin Dm -) 10 ml PO Q6H PRN PRN Reason: COUGH Levofloxacin (Levaquin 250 Mg Premixed Ivpb -) 50 mls @ 50 mls/hr IVPB DAILY [facility] Last Admin: 08/03/16 09:53 Dose: 50 mls/hr Levothyroxine Sodium (Synthroid -) 50 mcg PO SuFrSa@0700 [facility] Levothyroxine Sodium (Synthroid -) 75 mcg PO MoTuWeTh@0700 [facility] Last Admin: 08/03/16 06:15 Dose: 75 mcg Nystatin (Mycostatin Cream -) 1 applic TP BID [facility] Last Admin: 08/03/16 09:54 Dose: 1 applic Pregabalin (Lyrica -) 50 mg PO DAILY [facility] Last Admin: 08/03/16 09:52 Dose: 50 mg Ranitidine HCl (Zantac -) 150 mg PO BID [facility] Last Admin: 08/03/16 09:53 Dose: 150 mg Sodium Chloride ([place] Nasal [place] -) 2 spray NS Q4H PRN PRN Reason: NASAL CONGESTION Tamsulosin HCl (Flomax -) 0.4 mg PO DAILY [facility] Last Admin: 08/03/16 09:51 Dose: 0.4 mg Vital Signs: Vital Signs Temperature 98.5 F 08/02/16 09:00 Pulse Rate 100 H 08/02/16 09:00 Respiratory Rate 18 08/02/16 09:00 Blood Pressure 122/88 08/02/16 09:00 O2 Sat by Pulse Oximetry (%) 98 08/01/16 21:00 Neck: Yes: Supple Respiratory: Yes: Diminished Gastrointestinal: Yes: Normal Bowel Sounds, Soft. No: Tenderness Cardiovascular: Yes: Regular Rate and Rhythm Heart Sounds: Yes: S2. No: Gallop Extremities: Yes: Amputation Abnormal Lab Results 08/01/16 08/03/16 08/03/16 06:05 06:30 06:30 RBC 2.84 L Hgb 9.9 L Hct 29.1 L MCV 102.5 H RDW 16.0 H Plt Count 121 L Neutrophils % 91.4 H Lymphocytes % 2.2 L BUN 56 H Creatinine 2.0 H Random Glucose 225 H D Calcium 7.9 L Albumin 2.8 L Problem List - Problems (1) Benign localized hyperplasia of prostate with urinary obstruction Code(s): N40.1 - BENIGN PROSTATIC HYPERPLASIA WITH LOWER URINARY TRACT SYMP N13.8 - OTHER OBSTRUCTIVE AND REFLUX UROPATHY (2) Hematuria Code(s): R31.9 - HEMATURIA, UNSPECIFIED (3) Urinary retention Code(s): R33.9 - RETENTION OF URINE, UNSPECIFIED (4) ASHD (arteriosclerotic heart disease) Code(s): I25.10 - ATHSCL HEART DISEASE OF [place] CORONARY ARTERY W/O ANG PCTRS (5) COPD (chronic obstructive pulmonary disease) Code(s): J44.9 - CHRONIC OBSTRUCTIVE PULMONARY DISEASE, UNSPECIFIED Qualifiers : COPD type: chronic bronchitis (6) Diabetes mellitus Code(s): E11.9 - TYPE 2 DIABETES MELLITUS WITHOUT COMPLICATIONS Qualifiers: Diabetes mellitus type: type 2 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) (7) Hx of CABG Code(s): Z95.1 - PRESENCE OF AORTOCORONARY BYPASS GRAFT (8) Hypothyroidism Code(s): E03.9 - HYPOTHYROIDISM, UNSPECIFIED Qualifiers: Hypothyroidism type: unspecified Qualified Code(s): E03.9 - Hypothyroidism, unspecified (9) ICD (implantable cardioverter-defibrillator) in place Code(s): Z95.810 - PRESENCE OF AUTOMATIC (IMPLANTABLE) CARDIAC DEFIBRILLATOR (10) Peripheral arterial disease Code(s): I73.9 - PERIPHERAL VASCULAR DISEASE, UNSPECIFIED (11) Pneumonia Code(s): J18.9 - PNEUMONIA, UNSPECIFIED ORGANISM Qualifiers: Laterality: bilateral (12) Systolic dysfunction with acute on chronic heart failure Code(s): I50.23 - ACUTE ON CHRONIC SYSTOLIC (CONGESTIVE) HEART FAILURE (13) UTI (lower urinary tract infection) Code(s): N39.0 - URINARY TRACT INFECTION, SITE NOT SPECIFIED (14) HTN (hypertension) Code(s): I10 - ESSENTIAL (PRIMARY) HYPERTENSION (15) Hypercholesterolemia Code(s): E78.0 - PURE HYPERCHOLESTEROLEMIA * DO NOT USE * (16) Carotid artery disease Code(s): I77.9 - DISORDER OF ARTERIES AND ARTERIOLES, UNSPECIFIED Assessment/Plan 1. Urinary retention with decreased output, BPH rule out obstruction 2. CAD S/P CABG 3. 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 HTN/HCVD 5. Hypercholesterolemia 6. Diabetes Mellitus 7. PVD post APARTMENT HOUSE MANAGER and amputation (TMA) 8. Carotid artery disease 9. History of UTIs and pneumonia 10. Anemia 11. thrombocytopenia Anemia-- anemia of chronic disease due to CKD + ? iron deficiency macrocytosis -- B12--nl. on folic acid. TSH --mildly elevated Baseline around 10-11 check stool occult ferritin --nl MDS is in the differential given macrocytosis will check peripheral flow/FISH thrombocytopenia--mild. worsened due to infection? ? MDS. SIFE --nl
[2016-08-03] MEDS ORDERED: ONDANSETRON 4 MG/2 ML VIAL IVPB PRN (20:35)
--- NOTE | 2016-08-03 21:42 | PN ---
Progress Note, Physician Chief Complaint: s/p TURP by ; has some hematuria but no pain - Current Medication List Current Medications: Active Medications Acetaminophen (Tylenol -) 650 mg PO Q6H PRN PRN Reason: FEVER OR PAIN Albuterol/Ipratropium (Duoneb -) 1 amp NEB Q4H PRN PRN Reason: SHORTNESS OF BREATH Alprazolam (Xanax -) 0.25 mg PO BID PRN PRN Reason: ANXIETY Ascorbic Acid (Vitamin C -) 500 mg PO DAILY [facility] Last Admin: 08/03/16 09:53 Dose: 500 mg Aspirin (Asa -) 81 mg PO DAILY [facility] Last Admin: 08/03/16 09:51 Dose: 81 mg Bacitracin (Bacitracin -) 1 applic TP DAILY [facility] Last Admin: 08/03/16 09:54 Dose: 1 applic Carvedilol (Coreg -) 3.125 mg PO BID [facility] Last Admin: 08/03/16 09:51 Dose: Not Given Clopidogrel Bisulfate (Plavix -) 75 mg PO DAILY [facility] Last Admin: 08/03/16 09:53 Dose: 75 mg Dutasteride (Avodart -) 0.5 mg PO HS [facility] Last Admin: 08/02/16 21:58 Dose: 0.5 mg Fentanyl (Sublimaze Injection -) 25 mcg IVPUSH [id number] PRN PRN Reason: PAIN Stop: 08/05/16 14:27 Folic Acid (Folic Acid -) 1 mg PO DAILY [facility] Last Admin: 08/03/16 09:52 Dose: 1 mg Furosemide (Lasix -) 20 mg PO DAILY [facility] Guaifenesin (Robitussin Dm -) 10 ml PO Q6H PRN PRN Reason: COUGH Levofloxacin (Levaquin 250 Mg Premixed Ivpb -) 50 mls @ 50 mls/hr IVPB DAILY [facility] Last Admin: 08/03/16 09:53 Dose: 50 mls/hr Levothyroxine Sodium (Synthroid -) 50 mcg PO SuFrSa@0700 [facility] Levothyroxine Sodium (Synthroid -) 75 mcg PO MoTuWeTh@0700 [facility] Last Admin: 08/03/16 06:15 Dose: 75 mcg Nystatin (Mycostatin Cream -) 1 applic TP BID [facility] Last Admin: 08/03/16 09:54 Dose: 1 applic Ondansetron HCl (Zofran Injection) 8 mg IVPB Q8H PRN PRN Reason: NAUSEA AND/OR VOMITING Last Admin: 08/03/16 20:47 Dose: 8 mg Pregabalin (Lyrica -) 50 mg PO DAILY [facility] Last Admin: 08/03/16 09:52 Dose: 50 mg Ranitidine HCl (Zantac -) 150 mg PO BID [facility] Last Admin: 08/03/16 09:53 Dose: 150 mg Sodium Chloride ([place] Nasal [place] -) 2 spray NS Q4H PRN PRN Reason: NASAL CONGESTION Tamsulosin HCl (Flomax -) 0.4 mg PO DAILY [facility] Last Admin: 08/03/16 09:51 Dose: 0.4 mg - Objective Vital Signs: Vital Signs Temperature 99.4 F 08/03/16 17:15 Pulse Rate 98 H 08/03/16 17:15 Respiratory Rate 20 08/03/16 17:15 Blood Pressure 108/42 08/03/16 17:15 O2 Sat by Pulse Oximetry (%) 99 08/02/16 16:40 Constitutional: Yes: No Distress Eyes: Yes: Conjunctiva Clear HENT: Yes: Atraumatic Neck: Yes: Supple Cardiovascular: Yes: Regular Rate and Rhythm Respiratory: Yes: CTA Bilaterally Gastrointestinal: Yes: Soft. No: Distention, Tenderness Genitourinary: Yes: Hematuria Edema: No Peripheral Pulses WNL: Yes Integumentary: No: Rash, Venous Stasis Changes Neurological: Yes: WNL, Alert, Oriented ...Motor Strength: WNL Psychiatric: Yes: WNL, Alert, Oriented. No: Agitated Labs: CBC, BMP 08/03/16 06:30 08/03/16 06:30 INR, PTT INR 1.15 (0.82-1.09) H 07/31/16 13:20 - ....Imaging Other: Report Reviewed Assessment/Plan The patient is a 86 year old male, with a significant past medical history of CAD, PVD, diabetes,hypertension, CHF, CABG s/p 3 stents and defibrillator, COPD enlarged prostate, kidney stones and UTIs, who presents to the emergency department via ems from home for decreased urinary output s/p discharge from the hospital 4 days ago for urinary retention and pneumonia. The patient states he was urinating normally at discharge, but reports a decreasing urinary output over the last day. Aguero inserted in ER 300 cc urine drained; developed clots and hematuria and pain admitted for further urinary retention and hematuria management, s/p TURP per eval, po levaquin restart ASA & Plavix COPD O2 dep, cough, mild CHF: iv lasix cardio, pulm f/u can not use TEDs/ SCDs sec to h/o PVD falls decubs aspiration pfx f/u labs PT rehab eval d/w pt and staff
[2016-08-03] MEDS: DUTASTERIDE 0.5 MG CAP (FP) PO SCH (22:37)
[2016-08-04] MEDS: LEVOTHYROXINE NA 75 MCG TABLET (FP) PO SCH (06:25)
[2016-08-04 08:23] LABS: ALBUMIN 2.6 g/dl (3.4-5.0); CALCIUM 7.9 mg/dL (8.5-10.1); MAGNESIUM 2.4 mg/dL (1.8-2.4)
[2016-08-04 08:28] LABS: BILIRUBIN,TOTAL 0.5 mg/dL (0.2-1.0); CREATININE 2.1 mg/dL (0.7-1.3); PHOSPHOROUS 3.9 mg/dL (2.5-4.9); TOT PROT 6.3 g/dl (6.4-8.2)
[2016-08-04 08:42] LABS: BASOPHIL 0.3 % (0-2.0); MCH 34.9 pg (25.7-33.7); MCHC 33.7 g/dl (32.0-35.9); MEAN CELL VOLUME 103.6 fl (80-96); MEAN PLT VOLUME 9.9 fl (7.5-11.1); NEUTROPHILS 86.9 % (42.8-82.8); PLATELET COUNT 112 K/MM3 (134-434); RDW 15.9 % (11.9-15.9); WHITE BLOOD COUNT 8.4 K/mm3 (4.0-10.0)
--- NOTE | 2016-08-04 08:56 | PN ---
Progress Note (short form) - Note Progress Note: Awake in NAD on RA. Denies CP or SOB. No acute events overnight. Intake & Output 08/01/16 08/02/16 08/03/16 08/04/16 23:59 23:59 23:59 23:59 Intake Total 740 7075 54607 5000 Output Total 1500 05647 67824 2200 Balance -232 -5065 -5759 2800 Weight 149 lb 3 oz 142 lb 14.4 oz 145 lb 4.8 oz 145 lb 14.4 oz Last Vital Signs Temp Pulse Resp BP Pulse Ox 98.3 F 70 20 109/55 99 08/04/16 05:52 08/04/16 05:52 08/04/16 05:52 08/04/16 05:52 08/03/16 21:00 Active Medications Acetaminophen (Tylenol -) 650 mg PO Q6H PRN PRN Reason: FEVER OR PAIN Albuterol/Ipratropium (Duoneb -) 1 amp NEB Q4H PRN PRN Reason: SHORTNESS OF BREATH Alprazolam (Xanax -) 0.25 mg PO BID PRN PRN Reason: ANXIETY Ascorbic Acid (Vitamin C -) 500 mg PO DAILY [facility] Last Admin: 08/03/16 09:53 Dose: 500 mg Aspirin (Asa -) 81 mg PO DAILY [facility] Last Admin: 08/03/16 09:51 Dose: 81 mg Bacitracin (Bacitracin -) 1 applic TP DAILY [facility] Last Admin: 08/03/16 09:54 Dose: 1 applic Carvedilol (Coreg -) 3.125 mg PO BID [facility] Last Admin: 08/03/16 22:37 Dose: Not Given Clopidogrel Bisulfate (Plavix -) 75 mg PO DAILY [facility] Last Admin: 08/03/16 09:53 Dose: 75 mg Dutasteride (Avodart -) 0.5 mg PO HS [facility] Last Admin: 08/03/16 22:37 Dose: 0.5 mg Fentanyl (Sublimaze Injection -) 25 mcg IVPUSH [id number] PRN PRN Reason: PAIN Stop: 08/05/16 14:27 Folic Acid (Folic Acid -) 1 mg PO DAILY [facility] Last Admin: 08/03/16 09:52 Dose: 1 mg Furosemide (Lasix -) 20 mg PO DAILY [facility] Guaifenesin (Robitussin Dm -) 10 ml PO Q6H PRN PRN Reason: COUGH Levofloxacin (Levaquin 250 Mg Premixed Ivpb -) 50 mls @ 50 mls/hr IVPB DAILY [facility] Last Admin: 08/03/16 09:53 Dose: 50 mls/hr Levothyroxine Sodium (Synthroid -) 50 mcg PO SuFrSa@0700 [facility] Levothyroxine Sodium (Synthroid -) 75 mcg PO MoTuWeTh@0700 [facility] Last Admin: 08/04/16 06:25 Dose: 75 mcg Nystatin (Mycostatin Cream -) 1 applic TP BID [facility] Last Admin: 08/03/16 22:38 Dose: 1 applic Ondansetron HCl (Zofran Injection) 8 mg IVPB Q8H PRN PRN Reason: NAUSEA AND/OR VOMITING Last Admin: 08/03/16 20:47 Dose: 8 mg Pregabalin (Lyrica -) 50 mg PO DAILY [facility] Last Admin: 08/03/16 09:52 Dose: 50 mg Ranitidine HCl (Zantac -) 150 mg PO BID [facility] Last Admin: 08/03/16 22:38 Dose: 150 mg Sodium Chloride ([place] Nasal [place] -) 2 spray NS Q4H PRN PRN Reason: NASAL CONGESTION Tamsulosin HCl (Flomax -) 0.4 mg PO DAILY [facility] Last Admin: 08/03/16 09:51 Dose: 0.4 mg Constitutional: Yes: NAD Eyes: Yes: Conjunctiva Clear HENT: Yes: Atraumatic Neck: Yes: Supple Cardiovascular: Yes: Regular Rate and Rhythm Respiratory: Yes: Clear Gastrointestinal: Yes: Soft. No: Distention, Tenderness Genitourinary: Yes: Aguero. No: CVA Tenderness - Left, CVA Tenderness - Right Musculoskeletal: No: Joint Stiffness, Joint Swelling Extremities: No: Cold, Cool Edema: Trace Peripheral Pulses WNL: Yes Integumentary: No: Rash, Venous Stasis Changes Neurological: Yes: WNL, Alert, Oriented ...Motor Strength: WNL Psychiatric: Yes: WNL, Alert, Oriented. No: Agitated, Suicidal Ideation Labs: Laboratory Results - last 24 hr 08/03/16 08/03/16 08/04/16 11:22 16:31 06:00 WBC 8.4 RBC 3.10 L Hgb 10.8 L Hct 32.1 L MCV 103.6 H MCHC 33.7 RDW 15.9 Plt Count 112 L MPV 9.9 Neutrophils % 86.9 H Lymphocytes % 4.4 L D Monocytes % 8.4 Eosinophils % 0.0 Basophils % 0.3 Sodium Potassium Chloride Carbon Dioxide Anion Gap BUN Creatinine Creat Clearance w eGFR POC Glucometer 286 179 Random Glucose Calcium Phosphorus Magnesium Total Bilirubin AST ALT Alkaline Phosphatase Total Protein Albumin 08/04/16 08/04/16 06:00 07:10 WBC RBC Hgb Hct MCV MCHC RDW Plt Count MPV Neutrophils % Lymphocytes % Monocytes % Eosinophils % Basophils % Sodium 140 Potassium 4.8 Chloride 104 Carbon Dioxide 28 Anion Gap 8 BUN 68 H D Creatinine 2.1 H Creat Clearance w eGFR 30.17 POC Glucometer 200 Random Glucose 194 H Calcium 7.9 L Phosphorus 3.9 D Magnesium 2.4 D Total Bilirubin 0.5 D AST 66 H D ALT 56 D Alkaline Phosphatase 90 Total Protein 6.3 L Albumin 2.6 L Problem List - Problems (1) Hematuria Code(s): R31.9 - HEMATURIA, UNSPECIFIED (2) Urinary retention Code(s): R33.9 - RETENTION OF URINE, UNSPECIFIED (3) ASHLYN (acute kidney injury) Code(s): N17.9 - ACUTE KIDNEY FAILURE, UNSPECIFIED (4) ASHD (arteriosclerotic heart disease) Code(s): I25.10 - ATHSCL HEART DISEASE OF [place] CORONARY ARTERY W/O ANG PCTRS (5) Anemia Code(s): D64.9 - ANEMIA, UNSPECIFIED Qualifiers: Anemia type: unspecified type Qualified Code(s): D64.9 - Anemia, unspecified (6) CHF (congestive heart failure) Code(s): I50.9 - HEART FAILURE, UNSPECIFIED Qualifiers: Congestive heart failure type: unspecified congestive heart failure type Congestive heart failure chronicity: acute on chronic Qualified Code(s ): I50.9 - Heart failure, unspecified (7) COPD (chronic obstructive pulmonary disease) Code(s): J44.9 - CHRONIC OBSTRUCTIVE PULMONARY DISEASE, UNSPECIFIED Qualifiers : COPD type: chronic bronchitis (8) Hx of CABG Code(s): Z95.1 - PRESENCE OF AORTOCORONARY BYPASS GRAFT (9) ICD (implantable cardioverter-defibrillator) in place Code(s): Z95.810 - PRESENCE OF AUTOMATIC (IMPLANTABLE) CARDIAC DEFIBRILLATOR (10) Cough Code(s): R05 - COUGH PLAN INHALED BRONCHODILATORS ANTIBIOTICS MONITOR LYTES MONITOR URINE OUTPUT Dr Diggs
[2016-08-04] MEDS ORDERED: PT OWN MED DRAWER 7, Y5N ONE ×2 (09:29→21:04)
[2016-08-04] MEDS: ASPIRIN 81 MG CHEWABLE TABLETS PO SCH (09:32)
[2016-08-04] MEDS: FOLIC ACID 1 MG TABLET (FP) PO SCH (09:33)
[2016-08-04] MEDS: CARVEDILOL 3.125 MG TABLET (FP) PO SCH ×2 (09:33→21:17)
[2016-08-04] MEDS: TAMSULOSIN HCL 0.4 MG CAP.ER.24H (FP) PO SCH (09:33)
[2016-08-04] MEDS: PREGABALIN 50 MG CAPSULE PO SCH (09:34)
[2016-08-04] MEDS: FUROSEMIDE 20 MG TABLET (FP) PO SCH (09:34)
[2016-08-04] MEDS: LEVOFLOXACIN 250 MG IVPB 50 ML IVPB SCH (09:34)
[2016-08-04] MEDS: CLOPIDOGREL BISULFATE 75 MG TABLET (FP) PO SCH (09:34)
[2016-08-04] MEDS: RANITIDINE HCL 150 MG TABLET (FP) PO SCH ×2 (09:34→21:13)
[2016-08-04] MEDS: ASCORBIC ACID 500 MG TABLET (FP) PO SCH (09:34)
[2016-08-04] MEDS: NYSTATIN 100,000 UNIT/GM TOPICAL CREAM 15 GM TUBE TP SCH ×2 (09:35→21:19)
[2016-08-04] MEDS: BACITRACIN 30 GM TUBE TOPICAL OINTMENT TP SCH (09:35)
--- NOTE | 2016-08-04 12:25 | PN ---
Progress Note, Physician Chief Complaint: Post TURP Aguero catheter taken out. Currently has not voided urine History of Present Illness: Patient was seen and examined. Awake and alert. Chart was reviewed Denies chest pain, SOB or palpitations Spoke with by bedside - Current Medication List Current Medications: Active Medications Acetaminophen (Tylenol -) 650 mg PO Q6H PRN PRN Reason: FEVER OR PAIN Albuterol/Ipratropium (Duoneb -) 1 amp NEB Q4H PRN PRN Reason: SHORTNESS OF BREATH Alprazolam (Xanax -) 0.25 mg PO BID PRN PRN Reason: ANXIETY Ascorbic Acid (Vitamin C -) 500 mg PO DAILY [facility] Last Admin: 08/04/16 09:34 Dose: 500 mg Aspirin (Asa -) 81 mg PO DAILY [facility] Last Admin: 08/04/16 09:32 Dose: 81 mg Bacitracin (Bacitracin -) 1 applic TP DAILY [facility] Last Admin: 08/04/16 09:35 Dose: 1 applic Carvedilol (Coreg -) 3.125 mg PO BID [facility] Last Admin: 08/04/16 09:33 Dose: 3.125 mg Clopidogrel Bisulfate (Plavix -) 75 mg PO DAILY [facility] Last Admin: 08/04/16 09:34 Dose: 75 mg Dutasteride (Avodart -) 0.5 mg PO HS [facility] Last Admin: 08/03/16 22:37 Dose: 0.5 mg Fentanyl (Sublimaze Injection -) 25 mcg IVPUSH [id number] PRN PRN Reason: PAIN Stop: 08/05/16 14:27 Folic Acid (Folic Acid -) 1 mg PO DAILY [facility] Last Admin: 08/04/16 09:33 Dose: 1 mg Furosemide (Lasix -) 20 mg PO DAILY [facility] Last Admin: 08/04/16 09:34 Dose: 20 mg Guaifenesin (Robitussin Dm -) 10 ml PO Q6H PRN PRN Reason: COUGH Levofloxacin (Levaquin 250 Mg Premixed Ivpb -) 50 mls @ 50 mls/hr IVPB DAILY [facility] Last Admin: 08/04/16 09:34 Dose: 50 mls/hr Levothyroxine Sodium (Synthroid -) 50 mcg PO SuFrSa@0700 [facility] Levothyroxine Sodium (Synthroid -) 75 mcg PO MoTuWeTh@0700 [facility] Last Admin: 08/04/16 06:25 Dose: 75 mcg Nystatin (Mycostatin Cream -) 1 applic TP BID [facility] Last Admin: 08/04/16 09:35 Dose: 1 applic Ondansetron HCl (Zofran Injection) 8 mg IVPB Q8H PRN PRN Reason: NAUSEA AND/OR VOMITING Last Admin: 08/03/16 20:47 Dose: 8 mg Pregabalin (Lyrica -) 50 mg PO DAILY [facility] Last Admin: 08/04/16 09:34 Dose: 50 mg Ranitidine HCl (Zantac -) 150 mg PO BID [facility] Last Admin: 08/04/16 09:34 Dose: 150 mg Sodium Chloride ([place] Nasal [place] -) 2 spray NS Q4H PRN PRN Reason: NASAL CONGESTION Tamsulosin HCl (Flomax -) 0.4 mg PO DAILY [facility] Last Admin: 08/04/16 09:33 Dose: 0.4 mg - Objective Vital Signs: Vital Signs Temperature 98.3 F 08/04/16 05:52 Pulse Rate 70 08/04/16 05:52 Respiratory Rate 20 08/04/16 05:52 Blood Pressure 109/55 08/04/16 05:52 O2 Sat by Pulse Oximetry (%) 99 08/03/16 21:00 Neck: Yes: Supple Cardiovascular: Yes: Regular Rate and Rhythm, S1, S2 Respiratory: Yes: CTA Bilaterally Gastrointestinal: Yes: Normal Bowel Sounds, Soft. No: Tenderness Extremities: Yes: Amputation Edema: No Additional Findings/Remarks: - Review of Systems Constitutional: denies: Chills, Fever Cardiovascular: denies: Chest Pain, Palpitations, Shortness of Breath Respiratory: denies: Cough, Hemoptysis, Orthopnea, PND, SOB Gastrointestinal: denies: Abdominal Pain, Constipation, Diarrhea, Melena, Nausea , Rectal Bleeding, Vomiting Genitourinary: (+) Hematuria Musculoskeletal: denies: Joint Pain Neurological: denies: Dizziness, Headache, Seizure, Syncope Labs: CBC, BMP 08/04/16 06:00 08/04/16 06:00 INR, PTT INR 1.15 (0.82-1.09) H 07/31/16 13:20 Problem List - Problems (1) Benign localized hyperplasia of prostate with urinary obstruction Code(s): N40.1 - BENIGN PROSTATIC HYPERPLASIA WITH LOWER URINARY TRACT SYMP N13.8 - OTHER OBSTRUCTIVE AND REFLUX UROPATHY (2) Hematuria Code(s): R31.9 - HEMATURIA, UNSPECIFIED (3) Urinary retention Code(s): R33.9 - RETENTION OF URINE, UNSPECIFIED (4) ASHD (arteriosclerotic heart disease) Code(s): I25.10 - ATHSCL HEART DISEASE OF [place] CORONARY ARTERY W/O ANG PCTRS (5) COPD (chronic obstructive pulmonary disease) Code(s): J44.9 - CHRONIC OBSTRUCTIVE PULMONARY DISEASE, UNSPECIFIED Qualifiers : COPD type: chronic bronchitis (6) Diabetes mellitus Code(s): E11.9 - TYPE 2 DIABETES MELLITUS WITHOUT COMPLICATIONS Qualifiers: Diabetes mellitus type: type 2 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) (7) Hx of CABG Code(s): Z95.1 - PRESENCE OF AORTOCORONARY BYPASS GRAFT (8) Hypothyroidism Code(s): E03.9 - HYPOTHYROIDISM, UNSPECIFIED Qualifiers: Hypothyroidism type: unspecified Qualified Code(s): E03.9 - Hypothyroidism, unspecified (9) ICD (implantable cardioverter-defibrillator) in place Code(s): Z95.810 - PRESENCE OF AUTOMATIC (IMPLANTABLE) CARDIAC DEFIBRILLATOR (10) Peripheral arterial disease Code(s): I73.9 - PERIPHERAL VASCULAR DISEASE, UNSPECIFIED (11) Pneumonia Code(s): J18.9 - PNEUMONIA, UNSPECIFIED ORGANISM Qualifiers: Laterality: bilateral (12) Systolic dysfunction with acute on chronic heart failure Code(s): I50.23 - ACUTE ON CHRONIC SYSTOLIC (CONGESTIVE) HEART FAILURE (13) UTI (lower urinary tract infection) Code(s): N39.0 - URINARY TRACT INFECTION, SITE NOT SPECIFIED (14) HTN (hypertension) Code(s): I10 - ESSENTIAL (PRIMARY) HYPERTENSION Qualifiers: Hypertension type: essential hypertension Qualified Code(s): I10 - Essential (primary) hypertension (15) Hypercholesterolemia Code(s): E78.0 - PURE HYPERCHOLESTEROLEMIA * DO NOT USE * (16) Carotid artery disease Code(s): I77.9 - DISORDER OF ARTERIES AND ARTERIOLES, UNSPECIFIED Assessment/Plan 1. Urinary retention with decreased output, BPH post TURP 2. CAD S/P CABG 3. 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 HTN/HCVD 5. Hypercholesterolemia 6. Diabetes Mellitus 7. 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 Carotid artery disease 9. Acute on CKD (obstructive) 10. Hypothyroidism PLAN: 1. Management as per service 2. Continue Carvedilol 3.125 mg BID 3. Continue ASA 81 and Plavix as tolerated 4. Lasix 20 mg QD 5. Empiric antibiotic coverage 6. No indication for further cardiac evaluation at this time with known history of LV systolic dysfunction. ICD interrogation can be done as per protocol as outpatient. Further plans are to follow Keyon Fair MD
--- NOTE | 2016-08-04 12:26 | PN ---
Progress Note (short form) - Note Progress Note: Renal Follow up for ASHLYN on CKD Pt seen and examined at the bedside no acute complaints pulliam removed this am reports that he is voiding no sob, chest pain, abd pain + nasuea but no vomiting Vital Signs Temperature 98.3 F 08/04/16 05:52 Pulse Rate 70 08/04/16 05:52 Respiratory Rate 20 08/04/16 05:52 Blood Pressure 109/55 08/04/16 05:52 O2 Sat by Pulse Oximetry (%) 99 08/03/16 21:00 Intake & Output 08/01/16 08/02/16 08/03/16 08/04/16 23:59 23:59 23:59 23:59 Intake Total 740 7075 67535 5000 Output Total 1500 53677 56237 2200 Balance -000 -0525 -2683 2800 Weight 149 lb 3 oz 142 lb 14.4 oz 145 lb 4.8 oz 145 lb 14.4 oz Gen: NAD, awake and alert HEENT: NC/AT, No JVD, Neck Supple CVS: RRR, No M/R Lungs: Dec BS at lung bases Abd: soft NT/ND Ext: No edema, clubbing or cyanosis. Left TMA : no bladder distension CBC, BMP 08/04/16 06:00 08/04/16 06:00 Current Medications Acetaminophen (Tylenol -) 650 mg PO Q6H PRN PRN Reason: FEVER OR PAIN Albuterol/Ipratropium (Duoneb -) 1 amp NEB Q4H PRN PRN Reason: SHORTNESS OF BREATH Alprazolam (Xanax -) 0.25 mg PO BID PRN PRN Reason: ANXIETY Ascorbic Acid (Vitamin C -) 500 mg PO DAILY [facility] Last Admin: 08/04/16 09:34 Dose: 500 mg Aspirin (Asa -) 81 mg PO DAILY [facility] Last Admin: 08/04/16 09:32 Dose: 81 mg Bacitracin (Bacitracin -) 1 applic TP DAILY [facility] Last Admin: 08/04/16 09:35 Dose: 1 applic Carvedilol (Coreg -) 3.125 mg PO BID [facility] Last Admin: 08/04/16 09:33 Dose: 3.125 mg Clopidogrel Bisulfate (Plavix -) 75 mg PO DAILY [facility] Last Admin: 08/04/16 09:34 Dose: 75 mg Dutasteride (Avodart -) 0.5 mg PO HS [facility] Last Admin: 08/03/16 22:37 Dose: 0.5 mg Fentanyl (Sublimaze Injection -) 25 mcg IVPUSH [id number] PRN PRN Reason: PAIN Stop: 08/05/16 14:27 Folic Acid (Folic Acid -) 1 mg PO DAILY [facility] Last Admin: 08/04/16 09:33 Dose: 1 mg Furosemide (Lasix -) 20 mg PO DAILY [facility] Last Admin: 08/04/16 09:34 Dose: 20 mg Guaifenesin (Robitussin Dm -) 10 ml PO Q6H PRN PRN Reason: COUGH Levofloxacin (Levaquin 250 Mg Premixed Ivpb -) 50 mls @ 50 mls/hr IVPB DAILY [facility] Last Admin: 08/04/16 09:34 Dose: 50 mls/hr Levothyroxine Sodium (Synthroid -) 50 mcg PO SuFrSa@0700 [facility] Levothyroxine Sodium (Synthroid -) 75 mcg PO MoTuWeTh@0700 [facility] Last Admin: 08/04/16 06:25 Dose: 75 mcg Nystatin (Mycostatin Cream -) 1 applic TP BID [facility] Last Admin: 08/04/16 09:35 Dose: 1 applic Ondansetron HCl (Zofran Injection) 8 mg IVPB Q8H PRN PRN Reason: NAUSEA AND/OR VOMITING Last Admin: 08/03/16 20:47 Dose: 8 mg Pregabalin (Lyrica -) 50 mg PO DAILY [facility] Last Admin: 08/04/16 09:34 Dose: 50 mg Ranitidine HCl (Zantac -) 150 mg PO BID [facility] Last Admin: 08/04/16 09:34 Dose: 150 mg Sodium Chloride ([place] Nasal [place] -) 2 spray NS Q4H PRN PRN Reason: NASAL CONGESTION Tamsulosin HCl (Flomax -) 0.4 mg PO DAILY [facility] Last Admin: 08/04/16 09:33 Dose: 0.4 mg A/P 56 year old Gentleman with PMhx of CKD Stage 3 (baseline Cr 1.4-1.6)CAD s/p CABG , HF 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 volume depletion vs. AIN Baseline Cr 1.4-1.6 Renal function stable today Trial of Void today check urine studies now that CBI discontinued no acute indication for DAYTIME BABYSITTER holding off on IVF because of Hx of LV dysfunction and effusions #BPH/Hematuria s/p TURP Trial of Void today #Hx of LV dysfunction/CHF Pt is evolemic at this time Change Lasix back to PO as pt is not acutely decompensated Oscar Madrid DO
--- NOTE | 2016-08-04 13:09 | PATH ---
Surgical Pathology Report Patient Name: CHASTITY LAUGHLIN SR Med. Rec. #: [id number] /Age/Gender: 1930 (Age: 86) / M Account: [id number] Location: [facility] MED/SURG Taken: 08/02/2016 Received: 08/03/2016 Reported: 08/04/2016 Physicians: Shaun Nunez M.D. Specimen(s) Received PROSTATE CHIPS Clinical History Urinary retention, gross hematuria Final Diagnosis PROSTATE CHIPS, TUR: BENIGN PROSTATE TISSUE WITH STROMAL AND GLANDULAR HYPERPLASIA AND FOCI OF ACUTE AND CHRONIC INFLAMMATION; BENIGN UROTHELIAL MUCOSA. Electronically Signed Suhas Calvin M.D. Gross Description Received in formalin, labeled "prostate chips" is a 1 g, 3.0 x 2.5 x 0.3 cm aggregate of michel, irregular, firm to rubbery portions of tissue, consistent with prostate chips. The specimen is entirely submitted in 2 cassettes. /08/03/2016 saudi08/03/2016
[2016-08-04 17:17] LABS: PH,URINE 6.5 (5.0-8.0); URINE APPEARANCE CLEAR; URINE BILIRUBIN 2+ (NEGATIVE); URINE COLOR DK. RED; URINE GLUCOSE (UA) TRACE (NEGATIVE); URINE KETONE TRACE (NEGATIVE); URINE UROBILINOGEN 1.0 E.U/dl E.U./dl (0.2-1.0)
[2016-08-04 18:02] LABS: URINE BLOOD 3+ (NEGATIVE); URINE LEUK ESTERASE 2+ (NEGATIVE); URINE NITRITE POSITIVE (NEGATIVE); URINE PROTEIN 3+ (NEGATIVE)
[2016-08-04 20:56] LABS: URINE BACTERIA MODERATE /hpf (NONE SEEN); URINE RBC 20-30 /hpf (0-3); URINE WBC >100 /hpf (3-5)
[2016-08-04] MEDS: DUTASTERIDE 0.5 MG CAP (FP) PO SCH (21:19)
--- NOTE | 2016-08-04 22:44 | PN ---
Progress Note, Physician Chief Complaint: no new c/o, hematuria resolved - Current Medication List Current Medications: Active Medications Acetaminophen (Tylenol -) 650 mg PO Q6H PRN PRN Reason: FEVER OR PAIN Albuterol/Ipratropium (Duoneb -) 1 amp NEB Q4H PRN PRN Reason: SHORTNESS OF BREATH Alprazolam (Xanax -) 0.25 mg PO BID PRN PRN Reason: ANXIETY Ascorbic Acid (Vitamin C -) 500 mg PO DAILY [facility] Last Admin: 08/04/16 09:34 Dose: 500 mg Aspirin (Asa -) 81 mg PO DAILY [facility] Last Admin: 08/04/16 09:32 Dose: 81 mg Bacitracin (Bacitracin -) 1 applic TP DAILY [facility] Last Admin: 08/04/16 09:35 Dose: 1 applic Carvedilol (Coreg -) 3.125 mg PO BID [facility] Last Admin: 08/04/16 21:17 Dose: Not Given Clopidogrel Bisulfate (Plavix -) 75 mg PO DAILY [facility] Last Admin: 08/04/16 09:34 Dose: 75 mg Dutasteride (Avodart -) 0.5 mg PO HS [facility] Last Admin: 08/04/16 21:19 Dose: 0.5 mg Fentanyl (Sublimaze Injection -) 25 mcg IVPUSH [id number] PRN PRN Reason: PAIN Stop: 08/05/16 14:27 Folic Acid (Folic Acid -) 1 mg PO DAILY [facility] Last Admin: 08/04/16 09:33 Dose: 1 mg Furosemide (Lasix -) 20 mg PO DAILY [facility] Last Admin: 08/04/16 09:34 Dose: 20 mg Guaifenesin (Robitussin Dm -) 10 ml PO Q6H PRN PRN Reason: COUGH Levofloxacin (Levaquin 250 Mg Premixed Ivpb -) 50 mls @ 50 mls/hr IVPB DAILY [facility] Last Admin: 08/04/16 09:34 Dose: 50 mls/hr Levothyroxine Sodium (Synthroid -) 50 mcg PO SuFrSa@0700 [facility] Levothyroxine Sodium (Synthroid -) 75 mcg PO MoTuWeTh@0700 [facility] Last Admin: 08/04/16 06:25 Dose: 75 mcg Nystatin (Mycostatin Cream -) 1 applic TP BID [facility] Last Admin: 08/04/16 21:19 Dose: 1 applic Ondansetron HCl (Zofran Injection) 8 mg IVPB Q8H PRN PRN Reason: NAUSEA AND/OR VOMITING Last Admin: 08/03/16 20:47 Dose: 8 mg Pregabalin (Lyrica -) 50 mg PO DAILY [facility] Last Admin: 08/04/16 09:34 Dose: 50 mg Ranitidine HCl (Zantac -) 150 mg PO BID [facility] Last Admin: 08/04/16 21:13 Dose: 150 mg Sodium Chloride ([place] Nasal [place] -) 2 spray NS Q4H PRN PRN Reason: NASAL CONGESTION Tamsulosin HCl (Flomax -) 0.4 mg PO DAILY [facility] Last Admin: 08/04/16 09:33 Dose: 0.4 mg - Objective Vital Signs: Vital Signs Temperature 98.2 F 08/04/16 17:14 Pulse Rate 78 08/04/16 17:14 Respiratory Rate 20 08/04/16 17:14 Blood Pressure 97/42 08/04/16 17:14 O2 Sat by Pulse Oximetry (%) 95 08/04/16 14:53 Constitutional: Yes: No Distress Eyes: Yes: Conjunctiva Clear HENT: Yes: Atraumatic Neck: Yes: Supple Cardiovascular: Yes: Regular Rate and Rhythm Respiratory: Yes: CTA Bilaterally Gastrointestinal: Yes: Soft. No: Distention, Tenderness Genitourinary: No: Hematuria Musculoskeletal: No: Joint Stiffness, Joint Swelling Extremities: No: Cold, Cool Edema: No Peripheral Pulses WNL: Yes Integumentary: No: Rash, Venous Stasis Changes Neurological: Yes: WNL, Alert, Oriented ...Motor Strength: WNL Psychiatric: Yes: WNL, Alert, Oriented. No: Agitated Labs: CBC, BMP 08/04/16 06:00 08/04/16 06:00 INR, PTT INR 1.15 (0.82-1.09) H 07/31/16 13:20 - ....Imaging Other: Report Reviewed Assessment/Plan The patient is a 86 year old male, with a significant past medical history of CAD, PVD, diabetes,hypertension, CHF, CABG s/p 3 stents and defibrillator, COPD enlarged prostate, kidney stones and UTIs, who presents to the emergency department via ems from home for decreased urinary output s/p discharge from the hospital 4 days ago for urinary retention and pneumonia. The patient states he was urinating normally at discharge, but reports a decreasing urinary output over the last day. Aguero inserted in ER 300 cc urine drained; developed clots and hematuria and pain admitted for further urinary retention and hematuria management, s/p TURP per eval, po levaquin restart ASA & Plavix COPD O2 dep, cough, mild CHF: iv lasix cardio, pulm f/u can not use TEDs/ SCDs sec to h/o PVD falls decubs aspiration pfx f/u labs PT rehab eval d/w pt and staff d/w pt's ; pt does not want SNF at this point
[2016-08-05] MEDS: LEVOTHYROXINE NA 50 MCG TABLET (FP) PO SCH (06:40)
[2016-08-05] MEDS ORDERED: LEVOTHYROXINE NA 50 MCG TABLET (FP) PO SCH (07:00)
[2016-08-05 08:08] LABS: BASOPHIL 0.3 % (0-2.0); MEAN CELL VOLUME 102.9 fl (80-96); MEAN PLT VOLUME 10.1 fl (7.5-11.1); NEUTROPHILS 85.6 % (42.8-82.8); PLATELET COUNT 103 K/MM3 (134-434); RDW 15.9 % (11.9-15.9); WHITE BLOOD COUNT 6.6 K/mm3 (4.0-10.0)
[2016-08-05 08:38] LABS: CREATININE 2.1 mg/dL (0.7-1.3)
[2016-08-05] MEDS: ASPIRIN 81 MG CHEWABLE TABLETS PO SCH (11:19)
[2016-08-05] MEDS: FOLIC ACID 1 MG TABLET (FP) PO SCH (11:19)
[2016-08-05] MEDS: CARVEDILOL 3.125 MG TABLET (FP) PO SCH ×2 (11:19→21:07)
[2016-08-05] MEDS: BACITRACIN 30 GM TUBE TOPICAL OINTMENT TP SCH (11:19)
[2016-08-05] MEDS: TAMSULOSIN HCL 0.4 MG CAP.ER.24H (FP) PO SCH (11:19)
[2016-08-05] MEDS: PREGABALIN 50 MG CAPSULE PO SCH (11:20)
[2016-08-05] MEDS: ASCORBIC ACID 500 MG TABLET (FP) PO SCH (11:20)
[2016-08-05] MEDS: RANITIDINE HCL 150 MG TABLET (FP) PO SCH ×2 (11:20→21:11)
[2016-08-05] MEDS: CLOPIDOGREL BISULFATE 75 MG TABLET (FP) PO SCH (11:20)
[2016-08-05] MEDS: NYSTATIN 100,000 UNIT/GM TOPICAL CREAM 15 GM TUBE TP SCH ×2 (11:20→21:12)
[2016-08-05] MEDS: FUROSEMIDE 20 MG TABLET (FP) PO SCH (11:24)
[2016-08-05] MEDS: LEVOFLOXACIN 250 MG IVPB 50 ML IVPB SCH (11:24)
--- NOTE | 2016-08-05 12:11 | PN ---
Progress Note (short form) - Note Progress Note: Renal Follow up for ASHLYN on CKD Pt seen and examined at the bedside no acute complaints continues to have hematuria as per nurse no sob, chest pain, fever, chills Renal US showed Hydronephrosis Vital Signs Temperature 98.4 F 08/05/16 06:00 Pulse Rate 73 08/05/16 12:01 Respiratory Rate 20 08/05/16 06:00 Blood Pressure 103/52 08/05/16 06:00 O2 Sat by Pulse Oximetry (%) 97 08/05/16 12:01 Intake & Output 08/02/16 08/03/16 08/04/16 08/05/16 23:59 23:59 23:59 23:59 Intake Total 7075 28453 5300 Output Total 18985 64508 4525 100 Balance -5065 -5759 775 -100 Weight 142 lb 14.4 oz 145 lb 4.8 oz 145 lb 14.4 oz 147 lb 1.6 oz Gen: NAD, awake and alert CVS: RRR, No M/R Lungs: Dec BS at lung bases Abd: soft NT/ND Ext: No edema, clubbing or cyanosis. Left TMA CBC, BMP 08/05/16 07:05 08/05/16 07:05 Current Medications Acetaminophen (Tylenol -) 650 mg PO Q6H PRN PRN Reason: FEVER OR PAIN Albuterol/Ipratropium (Duoneb -) 1 amp NEB Q4H PRN PRN Reason: SHORTNESS OF BREATH Alprazolam (Xanax -) 0.25 mg PO BID PRN PRN Reason: ANXIETY Ascorbic Acid (Vitamin C -) 500 mg PO DAILY [facility] Last Admin: 08/05/16 11:20 Dose: 500 mg Aspirin (Asa -) 81 mg PO DAILY [facility] Last Admin: 08/05/16 11:19 Dose: 81 mg Bacitracin (Bacitracin -) 1 applic TP DAILY [facility] Last Admin: 08/05/16 11:19 Dose: 1 applic Carvedilol (Coreg -) 3.125 mg PO BID [facility] Last Admin: 08/05/16 11:19 Dose: 3.125 mg Clopidogrel Bisulfate (Plavix -) 75 mg PO DAILY [facility] Last Admin: 08/05/16 11:20 Dose: 75 mg Dutasteride (Avodart -) 0.5 mg PO HS [facility] Last Admin: 08/04/16 21:19 Dose: 0.5 mg Fentanyl (Sublimaze Injection -) 25 mcg IVPUSH [id number] PRN PRN Reason: PAIN Stop: 08/05/16 14:27 Folic Acid (Folic Acid -) 1 mg PO DAILY [facility] Last Admin: 08/05/16 11:19 Dose: 1 mg Furosemide (Lasix -) 20 mg PO DAILY [facility] Last Admin: 08/05/16 11:24 Dose: 20 mg Guaifenesin (Robitussin Dm -) 10 ml PO Q6H PRN PRN Reason: COUGH Levofloxacin (Levaquin 250 Mg Premixed Ivpb -) 50 mls @ 50 mls/hr IVPB DAILY [facility] Last Admin: 08/05/16 11:24 Dose: 50 mls/hr Levothyroxine Sodium (Synthroid -) 50 mcg PO SuFrSa@0700 [facility] Last Admin: 08/05/16 06:40 Dose: 50 mcg Levothyroxine Sodium (Synthroid -) 75 mcg PO MoTuWeTh@0700 [facility] Last Admin: 08/04/16 06:25 Dose: 75 mcg Nystatin (Mycostatin Cream -) 1 applic TP BID [facility] Last Admin: 08/05/16 11:20 Dose: 1 applic Ondansetron HCl (Zofran Injection) 8 mg IVPB Q8H PRN PRN Reason: NAUSEA AND/OR VOMITING Last Admin: 08/03/16 20:47 Dose: 8 mg Pregabalin (Lyrica -) 50 mg PO DAILY [facility] Last Admin: 08/05/16 11:20 Dose: 50 mg Ranitidine HCl (Zantac -) 150 mg PO BID [facility] Last Admin: 08/05/16 11:20 Dose: 150 mg Sodium Chloride ([place] Nasal [place] -) 2 spray NS Q4H PRN PRN Reason: NASAL CONGESTION Tamsulosin HCl (Flomax -) 0.4 mg PO DAILY [facility] Last Admin: 08/05/16 11:19 Dose: 0.4 mg A/P 56 year old Gentleman with PMhx of CKD Stage 3 (baseline Cr 1.4-1.6)CAD s/p CABG , HF 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 volume depletion vs. AIN Baseline Cr 1.4-1.6 Cr stable at 2.1 pt able to void w/o pulliam still has hematuria Unilateral Hydronephrosis seen on US -> called palced to urology for follow up continue to trend BUN/Cr avoid nsaids #BPH/Hematuria s/p TURP continues to have hematuria urology follow up #Hx of LV dysfunction/CHF Pt is evolemic at this time on PO kasandra Madrid DO
--- NOTE | 2016-08-05 13:17 | PN ---
Progress Note (short form) - Note Progress Note: Patient seen and examined No specific complaints of chest pain, SOB, GI. 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 Skin: No rashes, Integument intact CBC, BMP 08/05/16 07:05 08/05/16 07:05 Current Medications Generic Name Dose Route Start Last Admin Trade Name Freq PRN Reason Stop Dose Admin Acetaminophen 650 mg 08/02/16 15:21 Tylenol - PO Q6H PRN FEVER OR PAIN Albuterol/Ipratropium 1 amp 08/02/16 15:21 Duoneb - NEB Q4H PRN SHORTNESS OF BREATH Alprazolam 0.25 mg 08/02/16 15:21 Xanax - PO BID PRN ANXIETY Ascorbic Acid 500 mg 08/03/16 10:00 08/05/16 11:20 Vitamin C - PO 500 mg DAILY ABBEY Administration Aspirin 81 mg 08/03/16 10:00 08/05/16 11:19 Asa - PO 81 mg DAILY ABBEY Administration Bacitracin 1 applic 08/03/16 10:00 08/05/16 11:19 Bacitracin - TP 1 applic DAILY ABBEY Administration Carvedilol 3.125 mg 08/02/16 22:00 08/05/16 11:19 Coreg - PO 3.125 mg BID ABBEY Administration Clopidogrel Bisulfate 75 mg 08/03/16 10:00 08/05/16 11:20 Plavix - PO 75 mg DAILY ABBEY Administration Dutasteride 0.5 mg 08/02/16 22:00 08/04/16 21:19 Avodart - PO 0.5 mg HS ABBEY Administration Fentanyl 25 mcg 08/02/16 14:26 Sublimaze Injection - IVPUSH 08/05/16 14:27 [id number] PRN PAIN Folic Acid 1 mg 08/03/16 10:00 08/05/16 11:19 Folic Acid - PO 1 mg DAILY [facility]Y Administration Furosemide 20 mg 08/04/16 10:00 08/05/16 11:24 Lasix - PO 20 mg DAILY [facility]Y Administration Guaifenesin 10 ml 08/02/16 15:21 Robitussin Dm - PO Q6H PRN COUGH Levofloxacin 50 mls @ 50 mls/hr 08/03/16 10:00 08/05/16 11:24 Levaquin 250 Mg Premixed Ivpb - IVPB 50 mls/hr DAILY [facility] Administration Levothyroxine Sodium 50 mcg 08/05/16 07:00 08/05/16 06:40 Synthroid - PO 50 mcg SuFrSa@0700 [facility] Administration Levothyroxine Sodium 75 mcg 08/03/16 07:00 08/04/16 06:25 Synthroid - PO 75 mcg MoTuWeTh@0700 [facility] Administration Nystatin 1 applic 08/02/16 22:00 08/05/16 11:20 Mycostatin Cream - TP 1 applic BID ABBEY Administration Ondansetron HCl 8 mg 08/03/16 20:35 08/03/16 20:47 Zofran Injection IVPB 8 mg Q8H PRN Administration NAUSEA AND/OR VOMITING Pregabalin 50 mg 08/03/16 10:00 08/05/16 11:20 Lyrica - PO 50 mg DAILY [facility] Administration Ranitidine HCl 150 mg 08/02/16 22:00 08/05/16 11:20 Zantac - PO 150 mg BID ABBEY Administration Sodium Chloride 2 spray 08/02/16 15:21 [place] Nasal [place] - NS Q4H PRN NASAL CONGESTION Tamsulosin HCl 0.4 mg 08/03/16 10:00 08/05/16 11:19 Flomax - PO 0.4 mg DAILY [facility] Administration Impression: Problem List - Problems (1) ASHLYN (acute kidney injury) Code(s): N17.9 - ACUTE KIDNEY FAILURE, UNSPECIFIED (2) ASHD (arteriosclerotic heart disease) Code(s): I25.10 - ATHSCL HEART DISEASE OF [place] CORONARY ARTERY W/O ANG PCTRS (3) COPD (chronic obstructive pulmonary disease) Code(s): J44.9 - CHRONIC OBSTRUCTIVE PULMONARY DISEASE, UNSPECIFIED Qualifiers : COPD type: chronic bronchitis (4) Hematuria Code(s): R31.9 - HEMATURIA, UNSPECIFIED (5) S/P TURP (status post transurethral resection of prostate) Code(s): Z90.79 - ACQUIRED ABSENCE OF OTHER GENITAL ORGAN(S) (6) Chronic renal failure Code(s): N18.9 - CHRONIC KIDNEY DISEASE, UNSPECIFIED (7) Peripheral arterial disease Code(s): I73.9 - PERIPHERAL VASCULAR DISEASE, UNSPECIFIED (8) Anemia Assessment/Plan: Laboratory reveals elevated B-12, Mild increase in TSH, serum Fe++-40 Ferritin-99 No M spike Creatinine-2.1 Need to assess Fe++ saturation, but suspect component of Fe++ deficiency in association with chronic disease and renal insufficiency. Macrocytosis may be secondary to underlying abnormalities of LFT's or MDS. Flow cytometry has been ordered. Thromboctopenia may be part of liver disease, infection, MDS, etc. To monitor Code(s): D64.9 - ANEMIA, UNSPECIFIED Qualifiers: Anemia type: unspecified type Qualified Code(s): D64.9 - Anemia, unspecified
--- NOTE | 2016-08-05 16:13 | PN ---
Progress Note, Physician History of Present Illness: PULMONARY ALERT,OOB-CHAIR,-RESP DISTRESS,LESS COUGH - Current Medication List Current Medications: Active Medications Acetaminophen (Tylenol -) 650 mg PO Q6H PRN PRN Reason: FEVER OR PAIN Albuterol/Ipratropium (Duoneb -) 1 amp NEB Q4H PRN PRN Reason: SHORTNESS OF BREATH Ascorbic Acid (Vitamin C -) 500 mg PO DAILY [facility] Last Admin: 08/05/16 11:20 Dose: 500 mg Aspirin (Asa -) 81 mg PO DAILY [facility] Last Admin: 08/05/16 11:19 Dose: 81 mg Bacitracin (Bacitracin -) 1 applic TP DAILY [facility] Last Admin: 08/05/16 11:19 Dose: 1 applic Carvedilol (Coreg -) 3.125 mg PO BID [facility] Last Admin: 08/05/16 11:19 Dose: 3.125 mg Clopidogrel Bisulfate (Plavix -) 75 mg PO DAILY [facility] Last Admin: 08/05/16 11:20 Dose: 75 mg Dutasteride (Avodart -) 0.5 mg PO HS [facility] Last Admin: 08/04/16 21:19 Dose: 0.5 mg Folic Acid (Folic Acid -) 1 mg PO DAILY [facility] Last Admin: 08/05/16 11:19 Dose: 1 mg Furosemide (Lasix -) 20 mg PO DAILY [facility] Last Admin: 08/05/16 11:24 Dose: 20 mg Guaifenesin (Robitussin Dm -) 10 ml PO Q6H PRN PRN Reason: COUGH Levofloxacin (Levaquin 250 Mg Premixed Ivpb -) 50 mls @ 50 mls/hr IVPB DAILY [facility] Last Admin: 08/05/16 11:24 Dose: 50 mls/hr Levothyroxine Sodium (Synthroid -) 50 mcg PO SuFrSa@0700 [facility] Last Admin: 08/05/16 06:40 Dose: 50 mcg Levothyroxine Sodium (Synthroid -) 75 mcg PO MoTuWeTh@0700 [facility] Last Admin: 08/04/16 06:25 Dose: 75 mcg Nystatin (Mycostatin Cream -) 1 applic TP BID [facility] Last Admin: 08/05/16 11:20 Dose: 1 applic Ondansetron HCl (Zofran Injection) 8 mg IVPB Q8H PRN PRN Reason: NAUSEA AND/OR VOMITING Last Admin: 08/03/16 20:47 Dose: 8 mg Pregabalin (Lyrica -) 50 mg PO DAILY [facility] Last Admin: 08/05/16 11:20 Dose: 50 mg Ranitidine HCl (Zantac -) 150 mg PO BID [facility] Last Admin: 08/05/16 11:20 Dose: 150 mg Sodium Chloride ([place] Nasal [place] -) 2 spray NS Q4H PRN PRN Reason: NASAL CONGESTION Tamsulosin HCl (Flomax -) 0.4 mg PO DAILY [facility] Last Admin: 08/05/16 11:19 Dose: 0.4 mg - Objective Vital Signs: Vital Signs Temperature 986 F H 08/05/16 14:58 Pulse Rate 80 08/05/16 14:58 Respiratory Rate 16 08/05/16 14:58 Blood Pressure 118/70 08/05/16 14:58 O2 Sat by Pulse Oximetry (%) 97 08/05/16 12:01 Constitutional: Yes: Well Nourished, Calm Eyes: Yes: WNL HENT: Yes: WNL Neck: Yes: WNL Cardiovascular: Yes: Regular Rate and Rhythm, S1, S2 Respiratory: Yes: Diminished Gastrointestinal: Yes: Normal Bowel Sounds, Soft Extremities: Yes: WNL Edema: No Labs: CBC, BMP 08/05/16 07:05 08/05/16 07:05 INR, PTT INR 1.15 (0.82-1.09) H 07/31/16 13:20 Problem List - Problems (1) Hematuria Code(s): R31.9 - HEMATURIA, UNSPECIFIED (2) Urinary retention Code(s): R33.9 - RETENTION OF URINE, UNSPECIFIED (3) ASHLYN (acute kidney injury) Code(s): N17.9 - ACUTE KIDNEY FAILURE, UNSPECIFIED (4) ASHD (arteriosclerotic heart disease) Code(s): I25.10 - ATHSCL HEART DISEASE OF [place] CORONARY ARTERY W/O ANG PCTRS (5) Anemia Code(s): D64.9 - ANEMIA, UNSPECIFIED Qualifiers: Anemia type: unspecified type Qualified Code(s): D64.9 - Anemia, unspecified (6) CHF (congestive heart failure) Code(s): I50.9 - HEART FAILURE, UNSPECIFIED Qualifiers: Congestive heart failure type: unspecified congestive heart failure type Congestive heart failure chronicity: acute on chronic Qualified Code(s ): I50.9 - Heart failure, unspecified (7) COPD (chronic obstructive pulmonary disease) Code(s): J44.9 - CHRONIC OBSTRUCTIVE PULMONARY DISEASE, UNSPECIFIED Qualifiers : COPD type: chronic bronchitis (8) Hx of CABG Code(s): Z95.1 - PRESENCE OF AORTOCORONARY BYPASS GRAFT (9) ICD (implantable cardioverter-defibrillator) in place Code(s): Z95.810 - PRESENCE OF AUTOMATIC (IMPLANTABLE) CARDIAC DEFIBRILLATOR (10) Cough Code(s): R05 - COUGH Assessment/Plan IMP COUGH COPD RECENT PNEUMONIA CHF ASHD S/P ICD HEMATURIA URINARY RETENTION S/P TURP ACUTE ON CHRONIC KIDNEY INJURY PLAN INHALED BRONCHODILATORS ANTITUSSIVES ANTIBIOTICS MONITOR LYTES MONITOR URINE OUTPUT DR NAVARRO Problem List - Problems (1) Hematuria Code(s): R31.9 - HEMATURIA, UNSPECIFIED (2) Urinary retention Code(s): R33.9 - RETENTION OF URINE, UNSPECIFIED (3) ASHLYN (acute kidney injury) Code(s): N17.9 - ACUTE KIDNEY FAILURE, UNSPECIFIED (4) ASHD (arteriosclerotic heart disease) Code(s): I25.10 - ATHSCL HEART DISEASE OF [place] CORONARY ARTERY W/O ANG PCTRS (5) Anemia Code(s): D64.9 - ANEMIA, UNSPECIFIED Qualifiers: Anemia type: unspecified type Qualified Code(s): D64.9 - Anemia, unspecified (6) CHF (congestive heart failure) Code(s): I50.9 - HEART FAILURE, UNSPECIFIED Qualifiers: Congestive heart failure type: unspecified congestive heart failure type Congestive heart failure chronicity: acute on chronic Qualified Code(s ): I50.9 - Heart failure, unspecified (7) COPD (chronic obstructive pulmonary disease) Code(s): J44.9 - CHRONIC OBSTRUCTIVE PULMONARY DISEASE, UNSPECIFIED Qualifiers : COPD type: chronic bronchitis (8) Hx of CABG Code(s): Z95.1 - PRESENCE OF AORTOCORONARY BYPASS GRAFT (9) ICD (implantable cardioverter-defibrillator) in place Code(s): Z95.810 - PRESENCE OF AUTOMATIC (IMPLANTABLE) CARDIAC DEFIBRILLATOR (10) Cough Code(s): R05 - COUGH
[2016-08-05] MEDS: DUTASTERIDE 0.5 MG CAP (FP) PO SCH (21:12)
--- NOTE | 2016-08-05 21:32 | PN ---
Progress Note, Physician Chief Complaint: no new c.o, higher BUN and creatinine; some R sided hydronephrosis; f/u called walked 25 feet with help might benefit from SNF but pt reluctant to go to [place] for now - Current Medication List Current Medications: Active Medications Acetaminophen (Tylenol -) 650 mg PO Q6H PRN PRN Reason: FEVER OR PAIN Albuterol/Ipratropium (Duoneb -) 1 amp NEB Q4H PRN PRN Reason: SHORTNESS OF BREATH Ascorbic Acid (Vitamin C -) 500 mg PO DAILY [facility] Last Admin: 08/05/16 11:20 Dose: 500 mg Aspirin (Asa -) 81 mg PO DAILY [facility] Last Admin: 08/05/16 11:19 Dose: 81 mg Bacitracin (Bacitracin -) 1 applic TP DAILY [facility] Last Admin: 08/05/16 11:19 Dose: 1 applic Carvedilol (Coreg -) 3.125 mg PO BID [facility] Last Admin: 08/05/16 21:07 Dose: Not Given Clopidogrel Bisulfate (Plavix -) 75 mg PO DAILY [facility] Last Admin: 08/05/16 11:20 Dose: 75 mg Dutasteride (Avodart -) 0.5 mg PO HS [facility] Last Admin: 08/05/16 21:12 Dose: 0.5 mg Folic Acid (Folic Acid -) 1 mg PO DAILY [facility] Last Admin: 08/05/16 11:19 Dose: 1 mg Furosemide (Lasix -) 20 mg PO DAILY [facility] Last Admin: 08/05/16 11:24 Dose: 20 mg Guaifenesin (Robitussin Dm -) 10 ml PO Q6H PRN PRN Reason: COUGH Levofloxacin (Levaquin 250 Mg Premixed Ivpb -) 50 mls @ 50 mls/hr IVPB DAILY [facility] Last Admin: 08/05/16 11:24 Dose: 50 mls/hr Levothyroxine Sodium (Synthroid -) 50 mcg PO SuFrSa@0700 [facility] Last Admin: 08/05/16 06:40 Dose: 50 mcg Levothyroxine Sodium (Synthroid -) 75 mcg PO MoTuWeTh@0700 [facility] Last Admin: 08/04/16 06:25 Dose: 75 mcg Nystatin (Mycostatin Cream -) 1 applic TP BID [facility] Last Admin: 08/05/16 21:12 Dose: 1 applic Ondansetron HCl (Zofran Injection) 8 mg IVPB Q8H PRN PRN Reason: NAUSEA AND/OR VOMITING Last Admin: 08/03/16 20:47 Dose: 8 mg Pregabalin (Lyrica -) 50 mg PO DAILY [facility] Last Admin: 08/05/16 11:20 Dose: 50 mg Ranitidine HCl (Zantac -) 150 mg PO BID [facility] Last Admin: 08/05/16 21:11 Dose: 150 mg Sodium Chloride ([place] Nasal [place] -) 2 spray NS Q4H PRN PRN Reason: NASAL CONGESTION Tamsulosin HCl (Flomax -) 0.4 mg PO DAILY [facility] Last Admin: 08/05/16 11:19 Dose: 0.4 mg - Objective Vital Signs: Vital Signs Temperature 97.4 F L 08/05/16 18:00 Pulse Rate 117 H 08/05/16 18:00 Respiratory Rate 20 08/05/16 18:00 Blood Pressure 103/52 08/05/16 18:00 O2 Sat by Pulse Oximetry (%) 97 08/05/16 12:01 Constitutional: Yes: No Distress, Calm Eyes: Yes: Conjunctiva Clear HENT: Yes: Atraumatic Neck: Yes: Supple Cardiovascular: Yes: Regular Rate and Rhythm Respiratory: Yes: CTA Bilaterally Gastrointestinal: Yes: Soft. No: Distention, Tenderness Genitourinary: No: CVA Tenderness - Left, CVA Tenderness - Right Musculoskeletal: No: Joint Stiffness, Joint Swelling Extremities: No: Cold, Cool Edema: No Peripheral Pulses WNL: Yes Integumentary: No: Rash, Venous Stasis Changes Neurological: Yes: WNL, Alert, Oriented ...Motor Strength: WNL Psychiatric: Yes: WNL, Alert, Oriented. No: Agitated Labs: CBC, BMP 08/05/16 07:05 08/05/16 07:05 INR, PTT INR 1.15 (0.82-1.09) H 07/31/16 13:20 - ....Imaging Other: Report Reviewed Assessment/Plan The patient is a 86 year old male, with a significant past medical history of CAD, PVD, diabetes,hypertension, CHF, CABG s/p 3 stents and defibrillator, COPD enlarged prostate, kidney stones and UTIs, who presents to the emergency department via ems from home for decreased urinary output s/p discharge from the hospital 4 days ago for urinary retention and pneumonia. The patient states he was urinating normally at discharge, but reports a decreasing urinary output over the last day. Aguero inserted in ER 300 cc urine drained; developed clots and hematuria and pain admitted for further urinary retention and hematuria management, s/p TURP per eval, po levaquin restart ASA & Plavix COPD O2 dep, cough, CHF: iv lasix cardio, pulm f/u can not use TEDs/ SCDs sec to h/o PVD falls decubs aspiration pfx f/u labs PT rehab eval d/w pt and staff d/w pt's ; pt does not want SNF at this point
[2016-08-06] MEDS: LEVOTHYROXINE NA 50 MCG TABLET (FP) PO SCH (06:29)
[2016-08-06 08:03] LABS: BASOPHIL 0.4 % (0-2.0); EOSINOPHIL 4.4 % (0-4.5); MCHC 34.3 g/dl (32.0-35.9); MEAN CELL VOLUME 102.1 fl (80-96); MEAN PLT VOLUME 9.9 fl (7.5-11.1); NEUTROPHILS 78.1 % (42.8-82.8); PLATELET COUNT 106 K/MM3 (134-434); RDW 15.8 % (11.9-15.9); WHITE BLOOD COUNT 5.3 K/mm3 (4.0-10.0)
[2016-08-06 08:46] LABS: CALCIUM 8.1 mg/dL (8.5-10.1); MAGNESIUM 2.3 mg/dL (1.8-2.4); PHOSPHOROUS 2.7 mg/dL (2.5-4.9)
[2016-08-06] MEDS ORDERED: PT OWN MED DRAWER 7, Y5N ONE (09:14)
[2016-08-06] MEDS: ASPIRIN 81 MG CHEWABLE TABLETS PO SCH (09:16)
[2016-08-06] MEDS: TAMSULOSIN HCL 0.4 MG CAP.ER.24H (FP) PO SCH (09:17)
[2016-08-06] MEDS: PREGABALIN 50 MG CAPSULE PO SCH (09:17)
[2016-08-06] MEDS: FUROSEMIDE 20 MG TABLET (FP) PO SCH (09:17)
[2016-08-06] MEDS: CARVEDILOL 3.125 MG TABLET (FP) PO SCH ×2 (09:17→22:37)
[2016-08-06] MEDS: FOLIC ACID 1 MG TABLET (FP) PO SCH (09:17)
[2016-08-06] MEDS: CLOPIDOGREL BISULFATE 75 MG TABLET (FP) PO SCH (09:17)
[2016-08-06] MEDS: LEVOFLOXACIN 250 MG IVPB 50 ML IVPB SCH (09:18)
[2016-08-06] MEDS: RANITIDINE HCL 150 MG TABLET (FP) PO SCH ×2 (09:18→22:44)
[2016-08-06] MEDS: ASCORBIC ACID 500 MG TABLET (FP) PO SCH (09:18)
[2016-08-06] MEDS: BACITRACIN 30 GM TUBE TOPICAL OINTMENT TP SCH (09:18)
[2016-08-06] MEDS: NYSTATIN 100,000 UNIT/GM TOPICAL CREAM 15 GM TUBE TP SCH ×2 (09:18→22:40)
[2016-08-06] MEDS: POLYETHYLENE GLYCOL 3350 119 GM BTL PO SCH (10:20)
--- NOTE | 2016-08-06 10:58 | PN ---
Progress Note (short form) - Note Progress Note: Renal Follow up for ASHLYN on CKD Pt seen and examined at the bedside no acute complaints no sob, chest pain is urinating a little at at time, no hematuria Vital Signs Temperature 97.7 F 08/06/16 09:00 Pulse Rate 67 08/06/16 09:00 Respiratory Rate 18 08/06/16 09:00 Blood Pressure 143/52 08/06/16 09:00 O2 Sat by Pulse Oximetry (%) 97 08/05/16 21:00 Intake & Output 08/03/16 08/04/16 08/05/16 08/06/16 23:59 23:59 23:59 23:59 Intake Total 97339 5300 350 Output Total 01633 4525 300 100 Balance -5759 775 50 -100 Weight 145 lb 4.8 oz 145 lb 14.4 oz 147 lb 1.6 oz 151 lb 7 oz Gen: NAD, awake and alert CVS: RRR, No M/R Lungs: Dec BS at lung bases Abd: soft NT/ND Ext: No edema, clubbing or cyanosis. Left TMA CBC, BMP 08/06/16 06:30 08/06/16 06:30 Current Medications Acetaminophen (Tylenol -) 650 mg PO Q6H PRN PRN Reason: FEVER OR PAIN Albuterol/Ipratropium (Duoneb -) 1 amp NEB Q4H PRN PRN Reason: SHORTNESS OF BREATH Ascorbic Acid (Vitamin C -) 500 mg PO DAILY [facility] Last Admin: 08/06/16 09:18 Dose: 500 mg Aspirin (Asa -) 81 mg PO DAILY [facility] Last Admin: 08/06/16 09:16 Dose: 81 mg Bacitracin (Bacitracin -) 1 applic TP DAILY [facility] Last Admin: 08/06/16 09:18 Dose: 1 applic Carvedilol (Coreg -) 3.125 mg PO BID [facility] Last Admin: 08/06/16 09:17 Dose: 3.125 mg Clopidogrel Bisulfate (Plavix -) 75 mg PO DAILY [facility] Last Admin: 08/06/16 09:17 Dose: 75 mg Dutasteride (Avodart -) 0.5 mg PO HS [facility] Last Admin: 08/05/16 21:12 Dose: 0.5 mg Folic Acid (Folic Acid -) 1 mg PO DAILY [facility] Last Admin: 08/06/16 09:17 Dose: 1 mg Furosemide (Lasix -) 20 mg PO DAILY [facility] Last Admin: 08/06/16 09:17 Dose: 20 mg Guaifenesin (Robitussin Dm -) 10 ml PO Q6H PRN PRN Reason: COUGH Levofloxacin (Levaquin 250 Mg Premixed Ivpb -) 50 mls @ 50 mls/hr IVPB DAILY [facility] Last Admin: 08/06/16 09:18 Dose: 50 mls/hr Levothyroxine Sodium (Synthroid -) 50 mcg PO SuFrSa@0700 [facility] Last Admin: 08/06/16 06:29 Dose: 50 mcg Levothyroxine Sodium (Synthroid -) 75 mcg PO MoTuWeTh@0700 [facility] Last Admin: 08/04/16 06:25 Dose: 75 mcg Nystatin (Mycostatin Cream -) 1 applic TP BID [facility] Last Admin: 08/06/16 09:18 Dose: 1 applic Ondansetron HCl (Zofran Injection) 8 mg IVPB Q8H PRN PRN Reason: NAUSEA AND/OR VOMITING Last Admin: 08/03/16 20:47 Dose: 8 mg Pregabalin (Lyrica -) 50 mg PO DAILY [facility] Last Admin: 08/06/16 09:17 Dose: 50 mg Ranitidine HCl (Zantac -) 150 mg PO BID [facility] Last Admin: 08/06/16 09:18 Dose: 150 mg Sodium Chloride ([place] Nasal [place] -) 2 spray NS Q4H PRN PRN Reason: NASAL CONGESTION Tamsulosin HCl (Flomax -) 0.4 mg PO DAILY [facility] Last Admin: 08/06/16 09:17 Dose: 0.4 mg A/P 56 year old Gentleman with PMhx of CKD Stage 3 (baseline Cr 1.4-1.6)CAD s/p CABG , HF with LV dysfunction, PVD s/p amputation, DM, HTN, BPH, Nephrolithiasis who presented with complaints of inability to urinate and found to have bladder outflow obsruction and now is s/p TURP with BUN/cr of 56/2 #Acute on chronic renal insufficiency secondary to unilateral obstruction Right Hydronephrosis seen on US good urine output Urology eval pending oral intake as tolerated trend BUN/Cr #BPH/Hematuria s/p TURP continues to have hematuria urology follow up #Hx of LV dysfunction/CHF Pt is evolemic at this time on PO kasandra Madrid DO
--- NOTE | 2016-08-06 11:46 | PN ---
Progress Note, Physician Chief Complaint: in bed no BM for 3-4 days no N/V/ abdominal pain; no other new c/o - Current Medication List Current Medications: Active Medications Acetaminophen (Tylenol -) 650 mg PO Q6H PRN PRN Reason: FEVER OR PAIN Albuterol/Ipratropium (Duoneb -) 1 amp NEB Q4H PRN PRN Reason: SHORTNESS OF BREATH Ascorbic Acid (Vitamin C -) 500 mg PO DAILY COUNTS [facility]CLUDE 234 BEDS AT THE [facility] Last Admin: 08/06/16 09:18 Dose: 500 mg Aspirin (Asa -) 81 mg PO DAILY COUNTS INCLUDE 234 BEDS AT THE [facility] Last Admin: 08/06/16 09:16 Dose: 81 mg Bacitracin (Bacitracin -) 1 applic TP DAILY [facility]S [facility]CLUDE 234 BEDS AT THE [facility] Last Admin: 08/06/16 09:18 Dose: 1 applic Carvedilol (Coreg -) 3.125 mg PO BID COUNTS INCLUDE 234 BEDS AT THE [facility] Last Admin: 08/06/16 09:17 Dose: 3.125 mg Clopidogrel Bisulfate (Plavix -) 75 mg PO DAILY COUNTS INCLUDE 234 BEDS AT THE [facility] Last Admin: 08/06/16 09:17 Dose: 75 mg Docusate Sodium (Colace -) 100 mg PO DAILY COUNTS INCLUDE 234 BEDS AT THE [facility] Dutasteride (Avodart -) 0.5 mg PO HS COUNTS INCLUDE 234 BEDS AT THE [facility] Last Admin: 08/05/16 21:12 Dose: 0.5 mg Folic Acid (Folic Acid -) 1 mg PO DAILY COUNTS INCLUDE 234 BEDS AT THE [facility] Last Admin: 08/06/16 09:17 Dose: 1 mg Furosemide (Lasix -) 20 mg PO DAILY COUNTS INCLUDE 234 BEDS AT [facility] Last Admin: 08/06/16 09:17 Dose: 20 mg Guaifenesin (Robitussin Dm -) 10 ml PO Q6H PRN PRN Reason: COUGH Levofloxacin (Levaquin 250 Mg Premixed Ivpb -) 50 mls @ 50 mls/hr IVPB DAILY COUNTS INCLUDE 234 BEDS AT THE [facility] Last Admin: 08/06/16 09:18 Dose: 50 mls/hr Levothyroxine Sodium (Synthroid -) 50 mcg PO SuFrSa@0700 COUNTS INCLUDE 234 BEDS AT THE [facility] Last Admin: 08/06/16 06:29 Dose: 50 mcg Levothyroxine Sodium (Synthroid -) 75 mcg PO MoTuWeTh@0700 COUNTS INCLUDE 234 BEDS AT THE [facility] Last Admin: 08/04/16 06:25 Dose: 75 mcg Nystatin (Mycostatin Cream -) 1 applic TP BID COUNTS INCLUDE 234 BEDS AT THE [facility] Last Admin: 08/06/16 09:18 Dose: 1 applic Ondansetron HCl (Zofran Injection) 8 mg IVPB Q8H PRN PRN Reason: NAUSEA AND/OR VOMITING Last Admin: 08/03/16 20:47 Dose: 8 mg Polyethylene Glycol (Miralax (For Daily Use) -) 17 gm PO DAILY COUNTS INCLUDE 234 BEDS AT THE [facility] Pregabalin (Lyrica -) 50 mg PO DAILY COUNTS INCLUDE 234 BEDS AT THE [facility] Last Admin: 08/06/16 09:17 Dose: 50 mg Ranitidine HCl (Zantac -) 150 mg PO BID COUNTS INCLUDE 234 BEDS AT THE [facility] Last Admin: 08/06/16 09:18 Dose: 150 mg Sodium Chloride ([place] Nasal [place] -) 2 spray NS Q4H PRN PRN Reason: NASAL CONGESTION Tamsulosin HCl (Flomax -) 0.4 mg PO DAILY COUNTS INCLUDE 234 BEDS AT THE [facility] Last Admin: 08/06/16 09:17 Dose: 0.4 mg - Objective Vital Signs: Vital Signs Temperature 97.7 F 08/06/16 09:00 Pulse Rate 67 08/06/16 09:00 Respiratory Rate 18 08/06/16 09:00 Blood Pressure 143/52 08/06/16 09:00 O2 Sat by Pulse Oximetry (%) 97 08/05/16 21:00 Constitutional: Yes: No Distress Eyes: Yes: Conjunctiva Clear HENT: Yes: Atraumatic Neck: Yes: Supple Cardiovascular: Yes: Regular Rate and Rhythm Respiratory: Yes: CTA Bilaterally Gastrointestinal: Yes: Soft. No: Distention, Tenderness Genitourinary: No: CVA Tenderness - Left, CVA Tenderness - Right Musculoskeletal: No: Joint Stiffness, Joint Swelling Extremities: No: Cold, Cool Edema: No Peripheral Pulses WNL: Yes Integumentary: No: Rash, Venous Stasis Changes Neurological: Yes: WNL, Alert, Oriented ...Motor Strength: WNL Psychiatric: Yes: WNL, Alert, Oriented. No: Agitated Labs: CBC, BMP 08/06/16 06:30 08/06/16 06:30 INR, PTT INR 1.15 (0.82-1.09) H 07/31/16 13:20 - ....Imaging Other: Report Reviewed Assessment/Plan The patient is a 86 year old male, with a significant past medical history of CAD, PVD, diabetes,hypertension, CHF, CABG s/p 3 stents and defibrillator, COPD enlarged prostate, kidney stones and UTIs, who presents to the emergency department via ems from home for decreased urinary output s/p discharge from the hospital 4 days ago for urinary retention and pneumonia. The patient states he was urinating normally at discharge, but reports a decreasing urinary output over the last day. Aguero inserted in ER 300 cc urine drained; developed clots and hematuria and pain admitted for further urinary retention and hematuria management, s/p TURP per eval, po levaquin restart ASA & Plavix COPD O2 dep, cough, CHF: iv lasix cardio, pulm f/u can not use TEDs/ SCDs sec to h/o PVD falls decubs aspiration pfx f/u labs stools softeners for constipation PT rehab eval d/w pt and staff d/w pt's ; pt does not want SNF at this point
[2016-08-06] MEDS: DOCUSATE SODIUM 100 MG CAPSULE (FP) PO SCH (12:16)
--- NOTE | 2016-08-06 12:36 | PN ---
Progress Note (short form) - Note Progress Note: patient is voiding now and also has occasional hematuria as expected. mild right hydronephrosis present. continue flomax. Problem List - Problems (1) Benign localized hyperplasia of prostate with urinary obstruction Code(s): N40.1 - BENIGN PROSTATIC HYPERPLASIA WITH LOWER URINARY TRACT SYMP N13.8 - OTHER OBSTRUCTIVE AND REFLUX UROPATHY
--- NOTE | 2016-08-06 13:02 | PN ---
Progress Note (short form) - Note Progress Note: PULMONARY c/o nasal congestion and clear discharge. +cough with yellow sputum. No fevers or chills. Last Vital Signs Temp Pulse Resp BP Pulse Ox 97.7 F 67 18 143/52 98 08/06/16 09:00 08/06/16 11:25 08/06/16 09:00 08/06/16 09:00 08/06/16 11:25 Gen: NAD lying supine Heart: RRR Lung: bilateral wheezes Abd: soft, nontender Ext: no edema CBC, BMP 08/06/16 06:30 08/06/16 06:30 Active Medications Acetaminophen (Tylenol -) 650 mg PO Q6H PRN PRN Reason: FEVER OR PAIN Albuterol/Ipratropium (Duoneb -) 1 amp NEB Q4H PRN PRN Reason: SHORTNESS OF BREATH Ascorbic Acid (Vitamin C -) 500 mg PO DAILY [facility] Last Admin: 08/06/16 09:18 Dose: 500 mg Aspirin (Asa -) 81 mg PO DAILY [facility] Last Admin: 08/06/16 09:16 Dose: 81 mg Bacitracin (Bacitracin -) 1 applic TP DAILY [facility] Last Admin: 08/06/16 09:18 Dose: 1 applic Carvedilol (Coreg -) 3.125 mg PO BID [facility] Last Admin: 08/06/16 09:17 Dose: 3.125 mg Clopidogrel Bisulfate (Plavix -) 75 mg PO DAILY [facility] Last Admin: 08/06/16 09:17 Dose: 75 mg Docusate Sodium (Colace -) 100 mg PO DAILY [facility] Last Admin: 08/06/16 12:16 Dose: 100 mg Dutasteride (Avodart -) 0.5 mg PO HS [facility] Last Admin: 08/05/16 21:12 Dose: 0.5 mg Folic Acid (Folic Acid -) 1 mg PO DAILY [facility] Last Admin: 08/06/16 09:17 Dose: 1 mg Furosemide (Lasix -) 20 mg PO DAILY [facility] Last Admin: 08/06/16 09:17 Dose: 20 mg Guaifenesin (Robitussin Dm -) 10 ml PO Q6H PRN PRN Reason: COUGH Levofloxacin (Levaquin 250 Mg Premixed Ivpb -) 50 mls @ 50 mls/hr IVPB DAILY [facility] Last Admin: 08/06/16 09:18 Dose: 50 mls/hr Levothyroxine Sodium (Synthroid -) 50 mcg PO SuFrSa@0700 [facility] Last Admin: 08/06/16 06:29 Dose: 50 mcg Levothyroxine Sodium (Synthroid -) 75 mcg PO MoTuWeTh@0700 [facility] Last Admin: 08/04/16 06:25 Dose: 75 mcg Nystatin (Mycostatin Cream -) 1 applic TP BID [facility] Last Admin: 08/06/16 09:18 Dose: 1 applic Ondansetron HCl (Zofran Injection) 8 mg IVPB Q8H PRN PRN Reason: NAUSEA AND/OR VOMITING Last Admin: 08/03/16 20:47 Dose: 8 mg Polyethylene Glycol (Miralax (For Daily Use) -) 17 gm PO DAILY [facility] Last Admin: 08/06/16 10:20 Dose: 17 gm Pregabalin (Lyrica -) 50 mg PO DAILY [facility] Last Admin: 08/06/16 09:17 Dose: 50 mg Ranitidine HCl (Zantac -) 150 mg PO BID [facility] Last Admin: 08/06/16 09:18 Dose: 150 mg Sodium Chloride ([place] Nasal [place] -) 2 spray NS Q4H PRN PRN Reason: NASAL CONGESTION Tamsulosin HCl (Flomax -) 0.4 mg PO DAILY [facility] Last Admin: 08/06/16 09:17 Dose: 0.4 mg A/P BPH s/p TURP COPD Recent Pneumonia Acute on Chronic Renal Failure CAD s/p CABG LV systolic dysfunction HTN DM Hypercholesterolemia - will humidify O2 - will make nasal sprays standing - make inhaled bronchodilators standing as well, defer systemic steroids - on empiric antibiotics - monitor urine output, creatinine - O2 to keep SpO2 >90% - DVT prophylaxis ]
[2016-08-06] MEDS ORDERED: ALBUTEROL SO4 0.083% IH SOL 2.5 MG/3 ML VIAL.NEB. NEB PRN (13:06)
[2016-08-06] MEDS: SODIUM CHLORIDE NASAL SPRAY 44 ML BOTTLE NS SCH ×2 (18:24→22:43)
[2016-08-06] MEDS: ALBUTEROL SO4 2.5/IPRATROPIUM 0.5 INH SOL 3 ML VIAL.NEB. NEB SCH (19:15)
--- NOTE | 2016-08-06 22:16 | PN ---
Progress Note, Physician Chief Complaint: Complains of constipation History of Present Illness: Patient was seen and examined. Awake and alert. Chart was reviewed Denies chest pain, SOB or palpitations Spoke with by bedside - Current Medication List Current Medications: Active Medications Acetaminophen (Tylenol -) 650 mg PO Q6H PRN PRN Reason: FEVER OR PAIN Albuterol Sulfate (Ventolin 0.083% Nebulizer Soln -) 1 amp NEB Q4H PRN PRN Reason: SHORT OF BREATH/WHEEZING Last Admin: 08/06/16 13:50 Dose: 1 amp Albuterol/Ipratropium (Duoneb -) 1 amp NEB QIDR [facility] Last Admin: 08/06/16 19:15 Dose: 1 amp Ascorbic Acid (Vitamin C -) 500 mg PO DAILY [facility] Last Admin: 08/06/16 09:18 Dose: 500 mg Aspirin (Asa -) 81 mg PO DAILY [facility] Last Admin: 08/06/16 09:16 Dose: 81 mg Bacitracin (Bacitracin -) 1 applic TP DAILY [facility] Last Admin: 08/06/16 09:18 Dose: 1 applic Carvedilol (Coreg -) 3.125 mg PO BID [facility] Last Admin: 08/06/16 09:17 Dose: 3.125 mg Clopidogrel Bisulfate (Plavix -) 75 mg PO DAILY [facility] Last Admin: 08/06/16 09:17 Dose: 75 mg Docusate Sodium (Colace -) 100 mg PO DAILY [facility] Last Admin: 08/06/16 12:16 Dose: 100 mg Dutasteride (Avodart -) 0.5 mg PO HS [facility] Last Admin: 08/05/16 21:12 Dose: 0.5 mg Folic Acid (Folic Acid -) 1 mg PO DAILY [facility] Last Admin: 08/06/16 09:17 Dose: 1 mg Furosemide (Lasix -) 20 mg PO DAILY [facility] Last Admin: 08/06/16 09:17 Dose: 20 mg Guaifenesin (Robitussin Dm -) 10 ml PO Q6H PRN PRN Reason: COUGH Levofloxacin (Levaquin 250 Mg Premixed Ivpb -) 50 mls @ 50 mls/hr IVPB DAILY [facility] Last Admin: 08/06/16 09:18 Dose: 50 mls/hr Levothyroxine Sodium (Synthroid -) 50 mcg PO SuFrSa@0700 [facility] Last Admin: 08/06/16 06:29 Dose: 50 mcg Levothyroxine Sodium (Synthroid -) 75 mcg PO MoTuWeTh@0700 [facility] Last Admin: 08/04/16 06:25 Dose: 75 mcg Nystatin (Mycostatin Cream -) 1 applic TP BID [facility] Last Admin: 08/06/16 09:18 Dose: 1 applic Ondansetron HCl (Zofran Injection) 8 mg IVPB Q8H PRN PRN Reason: NAUSEA AND/OR VOMITING Last Admin: 08/03/16 20:47 Dose: 8 mg Polyethylene Glycol (Miralax (For Daily Use) -) 17 gm PO DAILY [facility] Last Admin: 08/06/16 10:20 Dose: 17 gm Pregabalin (Lyrica -) 50 mg PO DAILY [facility] Last Admin: 08/06/16 09:17 Dose: 50 mg Ranitidine HCl (Zantac -) 150 mg PO BID [facility] Last Admin: 08/06/16 09:18 Dose: 150 mg Sodium Chloride ([place] Nasal [place] -) 2 spray NS TID [facility] Last Admin: 08/06/16 18:24 Dose: 2 spray Tamsulosin HCl (Flomax -) 0.4 mg PO DAILY [facility] Last Admin: 08/06/16 09:17 Dose: 0.4 mg - Objective Vital Signs: Vital Signs Temperature 98.2 F 08/06/16 15:28 Pulse Rate 70 08/06/16 15:28 Respiratory Rate 16 08/06/16 15:28 Blood Pressure 105/50 08/06/16 15:28 O2 Sat by Pulse Oximetry (%) 98 08/06/16 11:25 Neck: Yes: Supple Cardiovascular: Yes: Regular Rate and Rhythm, S1, S2 Respiratory: Yes: CTA Bilaterally Gastrointestinal: Yes: Normal Bowel Sounds, Soft. No: Tenderness Edema: No Labs: CBC, BMP 08/06/16 06:30 08/06/16 06:30 Problem List - Problems (1) Benign localized hyperplasia of prostate with urinary obstruction Code(s): N40.1 - BENIGN PROSTATIC HYPERPLASIA WITH LOWER URINARY TRACT SYMP N13.8 - OTHER OBSTRUCTIVE AND REFLUX UROPATHY (2) Hematuria Code(s): R31.9 - HEMATURIA, UNSPECIFIED (3) Urinary retention Code(s): R33.9 - RETENTION OF URINE, UNSPECIFIED (4) ASHD (arteriosclerotic heart disease) Code(s): I25.10 - ATHSCL HEART DISEASE OF [place] CORONARY ARTERY W/O ANG PCTRS (5) COPD (chronic obstructive pulmonary disease) Code(s): J44.9 - CHRONIC OBSTRUCTIVE PULMONARY DISEASE, UNSPECIFIED Qualifiers : COPD type: chronic bronchitis (6) Diabetes mellitus Code(s): E11.9 - TYPE 2 DIABETES MELLITUS WITHOUT COMPLICATIONS Qualifiers: Diabetes mellitus type: type 2 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) (7) Hx of CABG Code(s): Z95.1 - PRESENCE OF AORTOCORONARY BYPASS GRAFT (8) Hypothyroidism Code(s): E03.9 - HYPOTHYROIDISM, UNSPECIFIED Qualifiers: Hypothyroidism type: unspecified Qualified Code(s): E03.9 - Hypothyroidism, unspecified (9) ICD (implantable cardioverter-defibrillator) in place Code(s): Z95.810 - PRESENCE OF AUTOMATIC (IMPLANTABLE) CARDIAC DEFIBRILLATOR (10) Peripheral arterial disease Code(s): I73.9 - PERIPHERAL VASCULAR DISEASE, UNSPECIFIED (11) Pneumonia Code(s): J18.9 - PNEUMONIA, UNSPECIFIED ORGANISM Qualifiers: Laterality: bilateral (12) Systolic dysfunction with acute on chronic heart failure Code(s): I50.23 - ACUTE ON CHRONIC SYSTOLIC (CONGESTIVE) HEART FAILURE (13) UTI (lower urinary tract infection) Code(s): N39.0 - URINARY TRACT INFECTION, SITE NOT SPECIFIED (14) HTN (hypertension) Code(s): I10 - ESSENTIAL (PRIMARY) HYPERTENSION Qualifiers: Hypertension type: essential hypertension Qualified Code(s): I10 - Essential (primary) hypertension (15) Hypercholesterolemia Code(s): E78.0 - PURE HYPERCHOLESTEROLEMIA * DO NOT USE * (16) Carotid artery disease Code(s): I77.9 - DISORDER OF ARTERIES AND ARTERIOLES, UNSPECIFIED Assessment/Plan 1. Urinary retention with decreased output, BPH post TURP 2. CAD S/P CABG 3. 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 HTN/HCVD 5. Hypercholesterolemia 6. Diabetes Mellitus 7. 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 Carotid artery disease 9. Acute on CKD (obstructive) 10. Hypothyroidism PLAN: 1. Management as per service 2. Continue Carvedilol 3.125 mg BID 3. Continue ASA and Plavix as tolerated 4. Lasix 20 mg QD 5. Empiric antibiotic coverage 6. No indication for further cardiac evaluation at this time with known history of LV systolic dysfunction. ICD interrogation can be done as per protocol as outpatient. 7. Continue laxatives Further plans are to follow Keyon Fair MD
[2016-08-06] MEDS: DUTASTERIDE 0.5 MG CAP (FP) PO SCH (22:40)
[2016-08-07] MEDS: SODIUM CHLORIDE NASAL SPRAY 44 ML BOTTLE NS SCH ×2 (06:11→14:37)
[2016-08-07] MEDS: LEVOTHYROXINE NA 50 MCG TABLET (FP) PO SCH (06:13)
[2016-08-07] MEDS: ALBUTEROL SO4 2.5/IPRATROPIUM 0.5 INH SOL 3 ML VIAL.NEB. NEB SCH ×3 (06:41→11:40)
[2016-08-07 08:10] LABS: SERUM IRON 40 ug/dL (38-169); TOTAL IRON BINDING CAPACITY 238 ug/dL (250-450); UIBC 198 ug/dL (111-343)
[2016-08-07 09:01] LABS: BASOPHIL 0.5 % (0-2.0); EOSINOPHIL 4.8 % (0-4.5); MCH 34.5 pg (25.7-33.7); MCHC 33.6 g/dl (32.0-35.9); MEAN CELL VOLUME 102.6 fl (80-96); MEAN PLT VOLUME 9.5 fl (7.5-11.1); NEUTROPHILS 76.7 % (42.8-82.8); PLATELET COUNT 111 K/MM3 (134-434); RDW 15.8 % (11.9-15.9); WHITE BLOOD COUNT 5.7 K/mm3 (4.0-10.0)
[2016-08-07] MEDS: BACITRACIN 30 GM TUBE TOPICAL OINTMENT TP SCH (09:41)
[2016-08-07] MEDS: TAMSULOSIN HCL 0.4 MG CAP.ER.24H (FP) PO SCH (09:42)
[2016-08-07] MEDS: ASPIRIN 81 MG CHEWABLE TABLETS PO SCH (09:42)
[2016-08-07] MEDS: DOCUSATE SODIUM 100 MG CAPSULE (FP) PO SCH (09:42)
[2016-08-07] MEDS: PREGABALIN 50 MG CAPSULE PO SCH (09:42)
[2016-08-07] MEDS: ASCORBIC ACID 500 MG TABLET (FP) PO SCH (09:42)
[2016-08-07] MEDS: FUROSEMIDE 20 MG TABLET (FP) PO SCH (09:42)
[2016-08-07] MEDS: LEVOFLOXACIN 250 MG IVPB 50 ML IVPB SCH (09:42)
[2016-08-07] MEDS: FOLIC ACID 1 MG TABLET (FP) PO SCH (09:42)
[2016-08-07] MEDS: CLOPIDOGREL BISULFATE 75 MG TABLET (FP) PO SCH (09:42)
[2016-08-07] MEDS: RANITIDINE HCL 150 MG TABLET (FP) PO SCH (09:42)
[2016-08-07] MEDS: NYSTATIN 100,000 UNIT/GM TOPICAL CREAM 15 GM TUBE TP SCH (09:43)
[2016-08-07] MEDS: POLYETHYLENE GLYCOL 3350 119 GM BTL PO SCH (09:43)
[2016-08-07] MEDS: CARVEDILOL 3.125 MG TABLET (FP) PO SCH (09:43)
[2016-08-07 09:59] LABS: CALCIUM 7.9 mg/dL (8.5-10.1); CREATININE 1.6 mg/dL (0.7-1.3); MAGNESIUM 2.2 mg/dL (1.8-2.4)
--- NOTE | 2016-08-07 12:45 | PN ---
Progress Note (short form) - Note Progress Note: PULMONARY Feels better. Denies shortness of breath. +cough with yellow sputum. No fevers or chills. Last Vital Signs Temp Pulse Resp BP Pulse Ox 98.6 F 76 22 104/53 96 08/07/16 10:00 08/07/16 10:00 08/07/16 10:00 08/07/16 10:00 08/07/16 09:00 Gen: NAD lying supine Heart: RRR Lung: bilateral wheezes Abd: soft, nontender Ext: no edema CBC, BMP 08/07/16 06:45 08/07/16 06:45 Active Medications Acetaminophen (Tylenol -) 650 mg PO Q6H PRN PRN Reason: FEVER OR PAIN Last Admin: 08/07/16 10:46 Dose: 650 mg Albuterol Sulfate (Ventolin 0.083% Nebulizer Soln -) 1 amp NEB Q4H PRN PRN Reason: SHORT OF BREATH/WHEEZING Last Admin: 08/06/16 13:50 Dose: 1 amp Albuterol/Ipratropium (Duoneb -) 1 amp NEB QIDR [facility] Last Admin: 08/07/16 06:41 Dose: 1 amp Ascorbic Acid (Vitamin C -) 500 mg PO DAILY [facility] Last Admin: 08/07/16 09:42 Dose: 500 mg Aspirin (Asa -) 81 mg PO DAILY [facility] Last Admin: 08/07/16 09:42 Dose: 81 mg Bacitracin (Bacitracin -) 1 applic TP DAILY [facility] Last Admin: 08/07/16 09:41 Dose: 1 applic Carvedilol (Coreg -) 3.125 mg PO BID [facility] Last Admin: 08/07/16 09:43 Dose: 3.125 mg Clopidogrel Bisulfate (Plavix -) 75 mg PO DAILY [facility] Last Admin: 08/07/16 09:42 Dose: 75 mg Docusate Sodium (Colace -) 100 mg PO DAILY [facility] Last Admin: 08/07/16 09:42 Dose: 100 mg Dutasteride (Avodart -) 0.5 mg PO HS [facility] Last Admin: 08/06/16 22:40 Dose: 0.5 mg Folic Acid (Folic Acid -) 1 mg PO DAILY [facility] Last Admin: 08/07/16 09:42 Dose: 1 mg Furosemide (Lasix -) 20 mg PO DAILY [facility] Last Admin: 08/07/16 09:42 Dose: 20 mg Guaifenesin (Robitussin Dm -) 10 ml PO Q6H PRN PRN Reason: COUGH Levofloxacin (Levaquin 250 Mg Premixed Ivpb -) 50 mls @ 50 mls/hr IVPB DAILY [facility] Last Admin: 08/07/16 09:42 Dose: 50 mls/hr Levothyroxine Sodium (Synthroid -) 50 mcg PO SuFrSa@0700 [facility] Last Admin: 08/07/16 06:13 Dose: 50 mcg Levothyroxine Sodium (Synthroid -) 75 mcg PO MoTuWeTh@0700 [facility] Last Admin: 08/04/16 06:25 Dose: 75 mcg Nystatin (Mycostatin Cream -) 1 applic TP BID [facility] Last Admin: 08/07/16 09:43 Dose: 1 applic Ondansetron HCl (Zofran Injection) 8 mg IVPB Q8H PRN PRN Reason: NAUSEA AND/OR VOMITING Last Admin: 08/03/16 20:47 Dose: 8 mg Polyethylene Glycol (Miralax (For Daily Use) -) 17 gm PO DAILY [facility] Last Admin: 08/07/16 09:43 Dose: 17 gm Pregabalin (Lyrica -) 50 mg PO DAILY [facility] Last Admin: 08/07/16 09:42 Dose: 50 mg Ranitidine HCl (Zantac -) 150 mg PO BID [facility] Last Admin: 08/07/16 09:42 Dose: 150 mg Sodium Chloride ([place] Nasal [place] -) 2 spray NS TID [facility] Last Admin: 08/07/16 06:11 Dose: 2 spray Tamsulosin HCl (Flomax -) 0.4 mg PO DAILY [facility] Last Admin: 08/07/16 09:42 Dose: 0.4 mg A/P BPH s/p TURP COPD Recent Pneumonia Acute on Chronic Renal Failure CAD s/p CABG LV systolic dysfunction HTN DM Hypercholesterolemia - inhaled bronchodilators - on empiric antibiotics - monitor urine output, creatinine - O2 to keep SpO2 >90% - DVT prophylaxis
--- NOTE | 2016-08-07 13:07 | DS ---
Physical Examination Vital Signs: Vital Signs Temperature 98.6 F 08/07/16 10:00 Pulse Rate 76 08/07/16 10:00 Respiratory Rate 22 08/07/16 10:00 Blood Pressure 104/53 08/07/16 10:00 O2 Sat by Pulse Oximetry (%) 96 08/07/16 09:00 Findings/Remarks: feeling well, no c/o; seen by cardio, pulm and , OK to DC home; no CP/SOB/ cough, afebrile; NAD; ate OK had BM; walked in hallway with PT but said he does not like to exercise. s/p 8 days of IV levaquin; will need f/u with pulm dr outpt and f/u CXR outpt pt and at bedside, I suggested SNF for safe home DC but pt absolutely refuses NH/SNF seems axox3 able to understand risks and consequences; and agrees with him, said she will take him home, she will help him at home; will have VNS and home PT, I suggested [facility] also. I d/w staff also (nurse and CM) will need O2 NC during transport home, CM to arrange/ pt has already home O2 NC. I d/w pt and the meds and DC instructions; T time 40 min Constitutional: Yes: No Distress, Calm Eyes: Yes: Conjunctiva Clear HENT: Yes: Atraumatic Neck: Yes: Supple Cardiovascular: Yes: Regular Rate and Rhythm Respiratory: Yes: CTA Bilaterally Gastrointestinal: Yes: Soft. No: Distention, Tenderness Musculoskeletal: No: Joint Stiffness, Joint Swelling Extremities: No: Cold, Cool Edema: No Peripheral Pulses WNL: Yes Integumentary: No: Pressure Ulcer, Rash, Venous Stasis Changes Neurological: Yes: WNL, Alert, Oriented ...Motor Strength: WNL Psychiatric: Yes: WNL, Alert, Oriented. No: Agitated, Suicidal Ideation Labs: CBC, BMP 08/07/16 06:45 08/07/16 06:45 Discharge Summary Reason For Visit: URINARY RETENTION,HEMATURIA Current Active Problems Benign localized hyperplasia of prostate with urinary obstruction (Acute) Carotid artery disease (Acute) Cough (Acute) HTN (hypertension) (Acute) Hematuria (Acute) Hypercholesterolemia (Acute) S/P TURP (status post transurethral resection of prostate) (Acute) Urinary retention (Acute) Procedures: Principal: hematuria, PNA Other Procedures: eval, TURP;. IV ATB as ordered;. seen by cardiology, pulmonary and heme also Hospital Course: improved with above; f/u as advised d/w pt and Condition: Stable - Instructions Diet, Activity, Other Instructions: Return to the emergency department immediately with ANY new, persistent or worsening symptoms including any fevers, chills, back pain or any other concerns. You MUST call and follow up with your urologist the next 2-3 days for further evaluation of your symptoms. Results were discussed with you. Please make sure your doctor reviews the results of your emergency evaluation. f/u PCP cardiology, , pulmonary drs in 1-3 weeks of DC f/u labs CBC CMP and CXR in 1-2 weeks of DC RTER if worse or recurrent c/o scripts done as needed falls PFX, home PT and VNS home O2 NC as ordered d/w pt and at bedside Referrals: Tanner Lindsey MD [Staff Physician] - Latanya Kirk MD [Primary Care Provider] - Fransisco Garcia MD [Staff Physician] - Andres Farfan MD, MD [Staff Physician] - Jose Manuel Prabhakar MD [Staff Physician] - Disposition: VNS/HOME HEALTH CARE - Home Medications Comprehensive Discharge Medication List: Ambulatory Orders Ascorbate Calcium [Vitamin C] 500 mg PO DAILY 01/20/14 Aspirin [ASA -] 81 mg PO DAILY 01/20/14 Carvedilol 3.125 mg PO BID 01/20/14 Clopidogrel Bisulfate [Plavix -] 75 mg PO DAILY 01/20/14 Dutasteride [Avodart] 0.5 mg PO HS 01/20/14 Folic Acid - 1 mg PO DAILY 01/20/14 Levothyroxine [Synthroid -] 50 mcg PO SUFRSA 01/20/14 Pregabalin [Lyrica -] 50 mg PO DAILY 01/20/14 Ranitidine HCl [Zantac] 150 mg PO BID 01/20/14 Tamsulosin HCl [Flomax -] 0.4 mg PO DAILY 01/20/14 Furosemide [Lasix -] 20 mg PO DAILY 10/25/15 Magnesium 200 mg PO DAILY 10/25/15 Levothyroxine [Synthroid -] 75 mcg PO MOTUWETH 07/21/16 Acetaminophen [Tylenol .Regular Strength -] 650 mg PO Q6H PRN #0 tablet Bacitracin - [Bacitracin Topical Ointment -] 1 applic TP DAILY tube 07/27/16 Sodium Chloride Nasal [place] [[place] Nasal [place] -] 2 spray NS Q4H PRN #0 bottle 07/27/16 Docusate Sodium [Colace -] 100 mg PO DAILY capsule 08/07/16 Guaifenesin Dm [Robitussin Dm -] 10 ml PO Q6H PRN #0 cup 08/07/16 Nystatin Cream [Mycostatin Cream -] 1 applic TP BID applic 08/07/16 Polyethylene Glycol 3350 [Miralax 119 gm Btl -] 17 gm PO DAILY bottle 08/07/16
[2016-08-07 15:16] VITALS: BP 120/70; PULSE 84; TEMP 98
--- NOTE | 2016-08-08 13:01 | EKG ---
Test Reason : Blood Pressure : / mmHG Vent. Rate : 066 BPM Atrial Rate : 068 BPM P-R Int : 082 ms QRS Dur : 172 ms QT Int : 498 ms P-R-T Axes : -02 -69 096 degrees QTc Int : 522 ms Atrial-sensed ventricular-paced rhythm ABNORMAL ECG WHEN COMPARED WITH ECG OF 21-JUL-2016 01:02, PREMATURE VENTRICULAR COMPLEXES ARE NOW PRESENT Confirmed by RANCHO LARSEN, JIMENA ([id number]) on 08/08/2016 1:00:46 PM Referred By: Confirmed By:JIMENA VICKERS MD
== END 2016-08-07 15:41 | disposition home health service (06) | DRG 713 ==
LOC: JER 11:35 → JERBED 16:27 → J8W 18:51
PROVIDERS: ADMIT Internal Medicine; ATTEND Internal Medicine
PROC: 0TJB8ZZ Inspection of Bladder, Via Natural or Artificial Opening Endoscopic (ICD-10-PCS; 2016-08-02)
PROC: 0VT08ZZ Resection of Prostate, Via Natural or Artificial Opening Endoscopic (ICD-10-PCS; principal; 2016-08-02 12:30)
DX: N40.1 Benign prostatic hyperplasia with lower urinary tract symptoms (principal); I50.23 Acute on chronic systolic (congestive) heart failure; N13.8 Other obstructive and reflux uropathy; N17.9 Acute kidney failure, unspecified; N13.30 Unspecified hydronephrosis; I13.0 Hypertensive heart and chronic kidney disease with heart failure and stage 1 through stage 4 chronic kidney disease, or unspecified chronic kidney disease; I25.10 Atherosclerotic heart disease of native coronary artery without angina pectoris; Z95.1 Presence of aortocoronary bypass graft; E11.9 Type 2 diabetes mellitus without complications; I10 Essential (primary) hypertension; R33.8 Other retention of urine; J44.9 Chronic obstructive pulmonary disease, unspecified; E03.9 Hypothyroidism, unspecified; I73.9 Peripheral vascular disease, unspecified; N18.3 Chronic kidney disease, stage 3 (moderate); D64.9 Anemia, unspecified; D69.6 Thrombocytopenia, unspecified; Z98.61 Coronary angioplasty status; Z87.891 Personal history of nicotine dependence; R31.9 Hematuria, unspecified; Z95.810 Presence of automatic (implantable) cardiac defibrillator
CPT/HCPCS: 36415; 71010-TC; 76775-TC; 80048; 80053; 81003; 81015; 82570; 82607; 82728; 83540; 83550; 83615; 83735; 84100; 84155; 84156; 84157; 84165; 84300; 84443; 84540; 85025; 85044; 85610; 85651; 87086; 88305-TC; 93005; 93010; 94640; 94760; 97116-GP; 97162-PG; 99284-25

== ENCOUNTER 2016-08-29 01:34 | Inpatient (IN) | payer OTHER, MEDICARE ==
--- NOTE | 2016-08-29 02:11 | PDOC ---
History of Present Illness - General Chief Complaint: Shortness of Breath Stated Complaint: SOB Time Seen by Provider: 08/29/16 01:37 - History of Present Illness Initial Comments: 08/29/16 02:11 CHIEF COMPLAINT: SOB, leg swelling HISTORY OF PRESENT ILLNESS: 86 year old with a significant PMH of CAD, PVD, diabetes, hypertension, CHF, CABG s/p 3 stents and defibrillator, enlarged prostate, kidney stones, and UTI presents to ED with shortness of breath, difficulty urinating, and swelling to lower legs bilaterally. Patient's states patient was discharged from this hospital two weeks ago, but he fell five days ago and hurt his legs. Patient was seen by Dr. Small "who scraped away at the legs, but today his legs are swelling." Patient denies fever , chills, nausea, vomiting, diarrhea. No recent travel or sick contacts. PAST MEDICAL HISTORY: as per HPI FAMILY HISTORY: Denies SOCIAL HISTORY: Former smoker. Denies alcohol, illicit drug use. SURGICAL HISTORY: Denies ALLERGIES: No known drug allergies REVIEW OF SYSTEMS General/Constitutional: Denies fever or chills. Denies weakness, weight change. HEENT: Denies change in vision. Denies ear pain or discharge. Denies sore throat. Cardiovascular: Denies chest pain. Respiratory: Shortness of breath. Cough, wheezing, or hemoptysis. Gastrointestinal: Denies nausea, vomiting, diarrhea or constipation. Denies rectal bleeding. Genitourinary: Difficulty urinating. Musculoskeletal: Denies joint or muscle swelling or pain. Denies neck or back pain. Skin and breasts: Denies rash or easy bruising. Neurologic: Denies headache, vertigo, loss of consciousness, or loss of sensation. PHYSICAL EXAM General Appearance: Well-appearing, appropriately dressed. No apparent distress , no intoxication. HEENT: EOMI, PERRLA, normal ENT inspection, normal voice, TMs normal, pharynx normal. No conjunctival pallor. No photophobia, scleral icterus. Neck: Supple. Trachea midline. No tenderness, rigidity, carotid bruit, stridor , lymphadenopathy, or thyromegaly. Respiratory/Chest: Shortness of breath. Decreased lung sounds to lower lobes bilaterally. No crackles, rales, rhonchi, stridor, wheezing, dullness Cardiovascular: RRR. S1, S2. No JVD, murmur, bradycardia, tachycardia. Vascular Pulses: Dorsalis-Pedis (R): non palpable, not audible with doppler, Dorsalis-Pedis (L): 2+ Gastrointestinal/Abdominal: Normal bowel sounds. Abdomen soft, non-distended. No tenderness or rebound tenderness. No organomegaly, pulsatile mass, guarding , hernia, hepatomegaly, splenomegaly. Lymphatic: No adenopathy, tenderness. Musculoskeletal/Extremities: Bilateral wounds to shins bilaterally, no redness or streaking. s/p amputation of L foot. 3+ pitting edema to R foot. Normal inspection. FROM of all extremities, normal capillary refill. Pelvis Stable. No CVA tenderness. No tenderness to extremities, pedal edema, swelling, erythema or deformity. Integumentary: Appropriate color, dry, warm. No cyanosis, erythema, jaundice or rash Neurologic: recreation supervisor II-XII intact. Fully oriented, alert. Appropriate mood/affect. Motor strength 5/5. No appreciable EOM palsy, facial droop or sensory deficit. Past History - Past Medical History Allergies/Adverse Reactions: Allergies Allergy/AdvReac Type Severity Reaction Status Date / Time No Known Allergies Allergy Verified 08/29/16 01:56 Home Medications: Ambulatory Orders Ascorbate Calcium [Vitamin C] 500 mg PO DAILY 01/20/14 Aspirin [ASA -] 81 mg PO DAILY 01/20/14 Carvedilol 3.125 mg PO BID 01/20/14 Clopidogrel Bisulfate [Plavix -] 75 mg PO DAILY 01/20/14 Dutasteride [Avodart] 0.5 mg PO HS 01/20/14 Folic Acid - 1 mg PO DAILY 01/20/14 Levothyroxine [Synthroid -] 50 mcg PO SUFRSA 01/20/14 Pregabalin [Lyrica -] 50 mg PO DAILY 01/20/14 Ranitidine HCl [Zantac] 150 mg PO BID 01/20/14 Tamsulosin HCl [Flomax -] 0.4 mg PO DAILY 01/20/14 Furosemide [Lasix -] 20 mg PO DAILY 10/25/15 Magnesium 200 mg PO DAILY 10/25/15 Levothyroxine [Synthroid -] 75 mcg PO MOTUWETH 07/21/16 Acetaminophen [Tylenol .Regular Strength -] 650 mg PO Q6H PRN #0 tablet Bacitracin - [Bacitracin Topical Ointment -] 1 applic TP DAILY tube 07/27/16 Sodium Chloride Nasal [place] [[place] Nasal [place] -] 2 spray NS Q4H PRN #0 bottle 07/27/16 Bacitracin - [Bacitracin Topical Ointment -] 1 applic TP DAILY tube 08/07/16 Docusate Sodium [Colace -] 100 mg PO DAILY capsule 08/07/16 Guaifenesin Dm [Robitussin Dm -] 10 ml PO Q6H PRN #0 cup 08/07/16 Nystatin Cream [Mycostatin Cream -] 1 applic TP BID applic 08/07/16 Polyethylene Glycol 3350 [Miralax 119 gm Btl -] 17 gm PO DAILY bottle 08/07/16 Anemia: Yes Asthma: No Cancer: No Cardiac Disorders: Yes (CAD, PVD, CABG, stents) COPD: No CHF: Yes Diabetes: Yes HTN: Yes Hypercholesterolemia: No Kidney Stones: Yes Thyroid Disease: No - Surgical History Abdominal Surgery: (gallbladder removal 2015) Appendectomy: No Cardiac Surgery: Yes (cabg x 3/defibrillator implanted) Cholecystectomy: Yes Lung Surgery: No Neurologic Surgery: No Orthopedic Surgery: Yes (lt foot amputated) - Immunization History Td Vaccination: No TDAP Vaccination: No Immunization Up to Date: Yes - Psycho/Social/Smoking Cessation Hx Anxiety: No Suicidal Ideation: No Smoking Status: No Smoking History: Unknown if ever smoked Years of Tobacco Use: 50 Have you smoked in the past 12 months: No Number of Cigarettes Smoked Daily: 0 If you are a former smoker, when did you quit?: 2010 Cigars Per Day: 0 Information on smoking cessation initiated: No Hx Alcohol Use: No Drug/Substance Use Hx: No Substance Use Type: None Hx Substance Use Treatment: No *Physical Exam - Vital Signs Last Vital Signs Temp Pulse Resp BP Pulse Ox 73 24 97/72 95 08/29/16 01:57 08/29/16 01:57 08/29/16 01:57 08/29/16 01:57 ED Treatment Course - LABORATORY CBC & Chemistry Diagram: 08/29/16 02:21 08/29/16 02:21 - RADIOLOGY Radiology Studies Ordered: Category Date Time Status CHEST X-RAY PORTABLE* [RAD] Stat Radiology 08/29/16 01:59 Ordered Medical Decision Making - Medical Decision Making 08/29/16 03:17 86 year old with a significant PMH of CAD, PVD, diabetes, hypertension, CHF, CABG s/p 3 stents and defibrillator, enlarged prostate, kidney stones, and UTI presents to ED with shortness of breath, difficulty urinating, and swelling to lower legs bilaterally. -CBC, CMP, lactate, blood cx, PT/INR -UA, Ucx -Influenza swab Labs: Creatinine notable to 1.6, but at pt baseline UA positive for UTI. Flu neg CXR suggestive of CHF exacerbation and bilateral pleural effusions. -80 mg Lasix IVPUSH -Levaquin IVPB for to historical UTIs positive for enterbacter cloacae. Discussed case with attending Katie, who requests patient be placed on nitro drip. Discussed case with admitting physician Saran, who defers nitro drip and admission floor to cardiology. Discussed case with covering slip seat coverer MD Forrest, who states there is no need for nitro at this time as patient does not have unstable angina. Patient cleared to go to tele. *DC/Admit/Observation/Transfer Diagnosis at time of Disposition: Pleural effusion Urinary tract infection Qualifiers: Urinary tract infection type: site unspecified Hematuria presence: with hematuria Qualified Code(s): N39.0 - Urinary tract infection, site not specified ; R31.9 - Hematuria, unspecified Acute on chronic congestive heart failure Qualifiers: Congestive heart failure type: unspecified congestive heart failure type Qualified Code(s): I50.9 - Heart failure, unspecified - Discharge Dispostion Admit: Yes
[2016-08-29] MEDS ORDERED: ALBUTEROL SO4 0.083% IH SOL 2.5 MG/3 ML VIAL.NEB. NEB ONE ×2 (02:20→02:46)
[2016-08-29] MEDS ORDERED: FUROSEMIDE 40 MG/4 ML INJECTABLE VIAL IVPUSH ONE (02:26)
[2016-08-29 02:38] LABS: MCH 34.4 pg (25.7-33.7); MCHC 32.8 g/dl (32.0-35.9); MEAN CELL VOLUME 104.9 fl (80-96); MEAN PLT VOLUME 10.3 fl (7.5-11.1); PLATELET COUNT 124 K/MM3 (134-434); RDW 16.3 % (11.9-15.9); WHITE BLOOD COUNT 4.4 K/mm3 (4.0-10.0)
[2016-08-29] MEDS ORDERED: FUROSEMIDE 40 MG/4 ML INJECTABLE VIAL ONE (02:46)
[2016-08-29 02:52] LABS: INR 1.36 (0.82-1.09)
[2016-08-29 02:57] LABS: URINE APPEARANCE TURBID; URINE BILIRUBIN NEGATIVE (NEGATIVE); URINE COLOR DKYELLOW; URINE GLUCOSE (UA) NEGATIVE (NEGATIVE); URINE KETONE NEGATIVE (NEGATIVE); URINE NITRITE NEGATIVE (NEGATIVE); URINE UROBILINOGEN NEGATIVE E.U./dl (0.2-1.0)
[2016-08-29 02:59] LABS: ALBUMIN 2.7 g/dl (3.4-5.0); BILIRUBIN,TOTAL 0.4 mg/dL (0.2-1.0); CALCIUM 7.9 mg/dL (8.5-10.1); CREATININE 1.8 mg/dL (0.7-1.3); TOT PROT 6.9 g/dl (6.4-8.2)
[2016-08-29 02:59] LABS: URINE BLOOD 2+ (NEGATIVE); URINE LEUK ESTERASE 3+ (NEGATIVE); URINE PROTEIN 1+ (NEGATIVE)
[2016-08-29 03:01] LABS: URINE HYALINE CAST 28 /lpf; URINE MUCUS RARE; URINE RBC 18 /hpf (0-3); URINE WBC 2195 /hpf (3-5)
[2016-08-29 03:02] LABS: TROPONIN I 0.02 ng/ml (0.00-0.05)
[2016-08-29] MEDS ORDERED: LEVOFLOXACIN 750 MG IVPB 150 ML IVPB ONE ×2 (03:12→03:44)
[2016-08-29] MEDS ORDERED: guaiFENesin/D-METHORPHAN HB 10 ML UNIT-DOSE CUPS PO PRN (09:22)
[2016-08-29] MEDS ORDERED: SODIUM CHLORIDE NASAL SPRAY 44 ML BOTTLE NS PRN (09:22)
--- NOTE | 2016-08-29 09:42 | HP ---
Admitting History and Physical - Primary Care Physician PCP: Joie Noonan S - Admission Chief Complaint: cough SOB legs edema History of Present Illness: 86 year old with a significant PMH of CAD, PVD, diabetes, hypertension, CHF, CABG s/p 3 stents and defibrillator, enlarged prostate, kidney stones, and UTI presents to ED with dry cough, shortness of breath, difficulty urinating, and swelling to lower legs bilaterally. Patient's states patient was discharged from this hospital two weeks ago, but he fell five days ago and hurt his legs. Patient was seen by Dr. Small "who scraped away at the legs, but today his legs are swelling." Patient denies fever, chills, nausea, vomiting , diarrhea. No recent travel or sick contacts. History Source: Patient, Significant Other, Medical Record Limitations to Obtaining History: No Limitations - Past Medical History Cardiovascular: Yes: CAD (CABG), HTN, Mitral Insufficiency, Other (ICD for induced ventricular tachycardia) Pulmonary: Yes: COPD Gastrointestinal: Yes: Other (recent C diff colitis, gallstones, chronic cholecystitis) Renal/: Yes: Renal Failure (had ARF last month in September creat bumped to 2), BPH, Renal Calculi Heme/Onc: Yes: Anemia Infectious Disease: Yes: C-Diff Musculoskeletal: Yes: Other (L foot wound s/p partial amputation) Endocrine: Yes: Diabetes Mellitus, Other (diabetic neuropathy) - Past Surgical History Past Surgical History: Yes: AICD, Amputation (TMA), Bypass, CABG - Smoking History Smoking history: Former smoker Have you smoked in the past 12 months: No Aproximately how many cigarettes per day: 0 If you are a former smoker, when did you quit?: 2009 - Alcohol/Substance Use Hx Alcohol Use: No History of Substance Use: reports: None - Social History Usual Living Arrangement: Yes: With Spouse ADL: Family Assistance History of Recent Travel: No Home Medications - Allergies Allergies/Adverse Reactions: Allergies Allergy/AdvReac Type Severity Reaction Status Date / Time No Known Allergies Allergy Verified 08/29/16 01:56 - Home Medications Home Medications: Ambulatory Orders Ascorbate Calcium [Vitamin C] 500 mg PO DAILY 01/20/14 Aspirin [ASA -] 81 mg PO DAILY 01/20/14 Carvedilol 3.125 mg PO BID 01/20/14 Clopidogrel Bisulfate [Plavix -] 75 mg PO DAILY 01/20/14 Dutasteride [Avodart] 0.5 mg PO HS 01/20/14 Folic Acid - 1 mg PO DAILY 01/20/14 Levothyroxine [Synthroid -] 50 mcg PO SUFRSA 01/20/14 Pregabalin [Lyrica -] 50 mg PO DAILY 01/20/14 Ranitidine HCl [Zantac] 150 mg PO BID 01/20/14 Tamsulosin HCl [Flomax -] 0.4 mg PO DAILY 01/20/14 Furosemide [Lasix -] 20 mg PO DAILY 10/25/15 Magnesium 200 mg PO DAILY 10/25/15 Levothyroxine [Synthroid -] 75 mcg PO MOTUWETH 07/21/16 Acetaminophen [Tylenol .Regular Strength -] 650 mg PO Q6H PRN #0 tablet Sodium Chloride Nasal [place] [[place] Nasal [place] -] 2 spray NS Q4H PRN #0 bottle 07/27/16 Bacitracin - [Bacitracin Topical Ointment -] 1 applic TP DAILY tube 08/07/16 Docusate Sodium [Colace -] 100 mg PO DAILY capsule 08/07/16 Guaifenesin Dm [Robitussin Dm -] 10 ml PO Q6H PRN #0 cup 08/07/16 Nystatin Cream [Mycostatin Cream -] 1 applic TP BID applic 08/07/16 Polyethylene Glycol 3350 [Miralax 119 gm Btl -] 17 gm PO DAILY bottle 08/07/16 Family Disease History - Family Disease History Family Disease History: Heart Disease: Mother, Brother (liver [place]), [place]: Brother Review of Systems - Review of Systems Constitutional: denies: Chills, Fever Eyes: denies: Blurred Vision, Double Vision HENT: denies: Difficult Swallowing, Ear Pain Neck: denies: Stiffness, Tenderness Cardiovascular: reports: Edema, Shortness of Breath. denies: Chest Pain Respiratory: reports: Cough, Exercise Intolerance, Orthopnea, SOB, SOB on Exertion Gastrointestinal: denies: Abdominal Pain, Bloating, Constipation, Diarrhea, Vomiting Genitourinary: denies: Dysuria, Flank Pain Musculoskeletal: denies: Back Pain, Extremity Pain Integumentary: denies: Pruritis, Rash Neurological: reports: Unsteady Gait. denies: Change in LOC, Change in Speech, Confusion, Headache, Seizure, Syncope, Tremors Endocrine: denies: Excessive Sweating Hematology/Lymphatic: denies: Easily Bruised, Excessive Bleeding, Swollen Glands Psychiatric: denies: Altered Sleep Pattern, Anxiety, Depression, Suicidal Physical Examination Vital Signs: Vital Signs Temperature 98.2 F 08/29/16 04:14 Pulse Rate 72 08/29/16 07:30 Respiratory Rate 22 08/29/16 04:14 Blood Pressure 101/62 08/29/16 04:14 O2 Sat by Pulse Oximetry (%) 100 08/29/16 07:30 Constitutional: Yes: No Distress, Calm Eyes: Yes: Conjunctiva Clear HENT: Yes: Atraumatic Neck: Yes: Supple Cardiovascular: Yes: Regular Rate and Rhythm Respiratory: Yes: Diminished, Rales (bilat) Gastrointestinal: Yes: Soft. No: Distention, Tenderness Musculoskeletal: No: Joint Stiffness, Joint Swelling Extremities: No: Cold, Cool Edema: Yes (pretibial bilat) Peripheral Pulses WNL: Yes Integumentary: No: Rash, Venous Stasis Changes Neurological: Yes: WNL, Alert, Oriented ...Motor Strength: WNL Psychiatric: Yes: WNL, Alert, Oriented. No: Agitated, Suicidal Ideation Imaging - Results Chest X-ray: Report Reviewed Other: Report Reviewed Assessment/Plan 86 year old with a significant PMH of CAD, PVD, diabetes, hypertension, CHF, CABG s/p 3 stents and defibrillator, enlarged prostate, kidney stones, and UTI presents to ED with dry cough, shortness of breath, difficulty urinating, and swelling to lower legs bilaterally. 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
[2016-08-29] MEDS ORDERED: LEVOTHYROXINE NA 25 MCG TABLET (FP) ONE (09:43)
[2016-08-29] MEDS: LEVOTHYROXINE NA 75 MCG TABLET (FP) PO SCH (09:47)
[2016-08-29] MEDS ORDERED: PATIENT'S OWN MEDICATION (NON-FORMULARY) (Magnesium [Magnesium] 200 MG) PO SCH (10:00)
[2016-08-29] MEDS ORDERED: PREGABALIN 50 MG CAPSULE ONE (10:39)
[2016-08-29] MEDS: ASPIRIN 81 MG CHEWABLE TABLETS PO SCH (10:44)
[2016-08-29] MEDS: BACITRACIN 30 GM TUBE TOPICAL OINTMENT TP SCH (10:44)
[2016-08-29] MEDS: POLYETHYLENE GLYCOL 3350 119 GM BTL PO SCH (10:45)
[2016-08-29] MEDS: PREGABALIN 50 MG CAPSULE PO SCH (10:45)
[2016-08-29] MEDS: DOCUSATE SODIUM 100 MG CAPSULE (FP) PO SCH (10:45)
[2016-08-29] MEDS: TAMSULOSIN HCL 0.4 MG CAP.ER.24H (FP) PO SCH (10:45)
[2016-08-29] MEDS: CARVEDILOL 3.125 MG TABLET (FP) PO SCH ×2 (10:45→21:47)
[2016-08-29] MEDS: FOLIC ACID 1 MG TABLET (FP) PO SCH (10:45)
[2016-08-29] MEDS: RANITIDINE HCL 150 MG TABLET (FP) PO SCH ×2 (10:45→21:47)
[2016-08-29] MEDS: NYSTATIN 100,000 UNIT/GM TOPICAL CREAM 15 GM TUBE TP SCH ×2 (10:45→21:50)
[2016-08-29] MEDS: CLOPIDOGREL BISULFATE 75 MG TABLET (FP) PO SCH (10:45)
[2016-08-29] MEDS: INSULIN SLIDING SCALE (NOVOLOG) 1 VIAL SQ SCH ×3 (11:44→21:47)
--- NOTE | 2016-08-29 11:58 | EKG ---
Test Reason : Blood Pressure : / mmHG Vent. Rate : 075 BPM Atrial Rate : 075 BPM P-R Int : 000 ms QRS Dur : 174 ms QT Int : 478 ms P-R-T Axes : 000 -66 111 degrees QTc Int : 533 ms Atrial-sensed ventricular-paced rhythm WITH FREQUENT PREMATURE VENTRICULAR COMPLEXES ABNORMAL ECG WHEN COMPARED WITH ECG OF 31-JUL-2016 17:10, PREMATURE VENTRICULAR COMPLEXES ARE NOW PRESENT VENT. RATE HAS INCREASED BY 9 BPM Confirmed by ELENITA HUGHES MD ([id number]) on 08/29/2016 11:58:07 AM Referred By: Confirmed By:ELENITA HUGHES MD
--- NOTE | 2016-08-29 12:11 | CON.CARD ---
Consult Consult Specialty:: Cardiology Referred by:: Dr. 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 He was recently hospitalized with decreased urine output and was evaluated by service. He returns after 2 1/2 weeks now with increase in shortness of breath for past few days and has gotten worse. He was given 80mg of IV Lasix in the ED. He feels a little better. He denies chest pain or palpitations. He denies paroxysmal nocturnal dyspnea or orthopnea. He denies fever or chills. He denies headache or lightheadedness. Cardiology consultation was called for further evaluation. - History Source History Provided By: Patient, Family Member, Medical Record Limitations to Obtaining History: No Limitations - Past Medical History Cardio/Vascular: Yes: CAD (CABG), HTN, Mitral Insufficiency, Other (ICD for induced ventricular tachycardia) Pulmonary: Yes: COPD Gastrointestinal: Yes: Other (recent C diff colitis, gallstones, chronic cholecystitis) Renal/: Yes: Renal Failure (had ARF last month in September creat bumped to 2), BPH, Renal Calculi Infectious Disease: Yes: C-Diff Musculoskeletal: Yes: Other (L foot wound s/p partial amputation) Endocrine: Yes: Diabetes Mellitus, Other (diabetic neuropathy) - Past Surgical History Past Surgical History: Yes: AICD, Amputation (TMA), Bypass, CABG, Stent - Alcohol/Substance Use Hx Alcohol Use: No History of Substance Use: reports: None - Smoking History Smoking history: Former smoker Have you smoked in the past 12 months: No Aproximately how many cigarettes per day: 0 If you are a former smoker, when did you quit?: 2009 - Social History Usual Living Arrangement: With Spouse ADL: Family Assistance History of Recent Travel: No Home Medications - Allergies Allergies/Adverse Reactions: Allergies Allergy/AdvReac Type Severity Reaction Status Date / Time No Known Allergies Allergy Verified 08/29/16 01:56 - Home Medications Home Medications: Ambulatory Orders Ascorbate Calcium [Vitamin C] 500 mg PO DAILY 01/20/14 Aspirin [ASA -] 81 mg PO DAILY 01/20/14 Carvedilol 3.125 mg PO BID 01/20/14 Clopidogrel Bisulfate [Plavix -] 75 mg PO DAILY 01/20/14 Dutasteride [Avodart] 0.5 mg PO HS 01/20/14 Folic Acid - 1 mg PO DAILY 01/20/14 Levothyroxine [Synthroid -] 50 mcg PO SUFRSA 01/20/14 Pregabalin [Lyrica -] 50 mg PO DAILY 01/20/14 Ranitidine HCl [Zantac] 150 mg PO BID 01/20/14 Tamsulosin HCl [Flomax -] 0.4 mg PO DAILY 01/20/14 Furosemide [Lasix -] 20 mg PO DAILY 10/25/15 Magnesium 200 mg PO DAILY 10/25/15 Levothyroxine [Synthroid -] 75 mcg PO MOTUWETH 07/21/16 Acetaminophen [Tylenol .Regular Strength -] 650 mg PO Q6H PRN #0 tablet Sodium Chloride Nasal [place] [[place] Nasal [place] -] 2 spray NS Q4H PRN #0 bottle 07/27/16 Bacitracin - [Bacitracin Topical Ointment -] 1 applic TP DAILY tube 08/07/16 Docusate Sodium [Colace -] 100 mg PO DAILY capsule 08/07/16 Guaifenesin Dm [Robitussin Dm -] 10 ml PO Q6H PRN #0 cup 08/07/16 Nystatin Cream [Mycostatin Cream -] 1 applic TP BID applic 08/07/16 Polyethylene Glycol 3350 [Miralax 119 gm Btl -] 17 gm PO DAILY bottle 08/07/16 Family Disease History - Family Disease History Family Disease History: Heart Disease: Mother, Brother (liver [place]), [place]: Brother Review of Systems - Review of Systems Constitutional: denies: Chills, Fever Cardiovascular: reports: Shortness of Breath. denies: Chest Pain, Palpitations Respiratory: reports: Cough. denies: Hemoptysis, Orthopnea, PND Gastrointestinal: denies: Abdominal Pain, Constipation, Diarrhea, Melena, Nausea , Rectal Bleeding, Vomiting Genitourinary: denies: Dysuria Neurological: denies: Dizziness, Headache, Seizure, Syncope Vital Signs: Vital Signs Temperature 98.2 F 08/29/16 04:14 Pulse Rate 72 08/29/16 11:08 Respiratory Rate 18 08/29/16 11:08 Blood Pressure 108/68 08/29/16 11:08 O2 Sat by Pulse Oximetry (%) 100 08/29/16 11:08 Neck: Yes: Supple Respiratory: Yes: Diminished, Rales Gastrointestinal: Yes: Normal Bowel Sounds, Soft. No: Tenderness Cardiovascular: Yes: Regular Rate and Rhythm JVD: No Carotid Bruit: No PMI: Non-Displaced Heart Sounds: Yes: S1, S2 Edema: Yes Edema: LLE: 1+, RLE: 2+ - Other Data Labs, Other Data: INR, PTT INR 1.36 (0.82-1.09) H 08/29/16 02:21 Laboratory Results - last 24 hr 08/29/16 08/29/16 08/29/16 02:21 02:21 02:21 WBC 4.4 RBC 2.83 L Hgb 9.7 L Hct 29.7 L MCV 104.9 H MCHC 32.8 RDW 16.3 H Plt Count 124 L MPV 10.3 INR 1.36 H Sodium 136 Potassium 4.4 Chloride 103 Carbon Dioxide 22 D Anion Gap 11 BUN 62 H Creatinine 1.8 H Creat Clearance w eGFR 36.04 POC Glucometer Random Glucose 184 H D Lactic Acid Calcium 7.9 L Total Bilirubin 0.4 AST 42 H D ALT 47 Alkaline Phosphatase 115 D Creatine Kinase 91 Troponin I 0.02 D B-Natriuretic Peptide Total Protein 6.9 Albumin 2.7 L Urine Color Urine Appearance Urine pH Ur Specific [place] Urine Protein Urine Glucose (UA) Urine Ketones Urine Blood Urine Nitrite Urine Bilirubin Urine Urobilinogen Ur Leukocyte Esterase Urine RBC Urine WBC Ur Epithelial Cells Hyaline Casts Urine Mucus 08/29/16 08/29/16 08/29/16 02:21 02:21 02:35 WBC RBC Hgb Hct MCV MCHC RDW Plt Count MPV INR Sodium Potassium Chloride Carbon Dioxide Anion Gap BUN Creatinine Creat Clearance w eGFR POC Glucometer Random Glucose Lactic Acid 1.366 Calcium Total Bilirubin AST ALT Alkaline Phosphatase Creatine Kinase Troponin I B-Natriuretic Peptide 27031.75 H Total Protein Albumin Urine Color Dkyellow Urine Appearance Turbid Urine pH 5.0 D Ur Specific [place] 1.016 Urine Protein 1+ H D Urine Glucose (UA) Negative Urine Ketones Negative Urine Blood 2+ H Urine Nitrite Negative Urine Bilirubin Negative Urine Urobilinogen Negative Ur Leukocyte Esterase 3+ H Urine RBC 18 Urine WBC 2195 Ur Epithelial Cells Rare Hyaline Casts 28 Urine Mucus Rare Ventricular paced with PVC Problem List - Problems (1) CHF exacerbation Code(s): I50.9 - HEART FAILURE, UNSPECIFIED Qualifiers: Congestive heart failure type: unspecified congestive heart failure type Qualified Code(s): I50.9 - Heart failure, unspecified (2) Pleural effusion Code(s): J90 - PLEURAL EFFUSION, NOT ELSEWHERE CLASSIFIED (3) Urinary tract infection Code(s): N39.0 - URINARY TRACT INFECTION, SITE NOT SPECIFIED Qualifiers: Urinary tract infection type: site unspecified Hematuria presence: with hematuria Qualified Code(s): N39.0 - Urinary tract infection, site not specified (4) ASHD (arteriosclerotic heart disease) Code(s): I25.10 - ATHSCL HEART DISEASE OF [place] CORONARY ARTERY W/O ANG PCTRS (5) Anemia Code(s): D64.9 - ANEMIA, UNSPECIFIED Qualifiers: Anemia type: unspecified type Qualified Code(s): D64.9 - Anemia, unspecified (6) Benign localized hyperplasia of prostate with urinary obstruction Code(s): N40.1 - BENIGN PROSTATIC HYPERPLASIA WITH LOWER URINARY TRACT SYMP N13.8 - OTHER OBSTRUCTIVE AND REFLUX UROPATHY (7) Carotid artery disease Code(s): I77.9 - DISORDER OF ARTERIES AND ARTERIOLES, UNSPECIFIED (8) Chronic renal failure Code(s): N18.9 - CHRONIC KIDNEY DISEASE, UNSPECIFIED (9) Diabetes mellitus Code(s): E11.9 - TYPE 2 DIABETES MELLITUS WITHOUT COMPLICATIONS Qualifiers: Diabetes mellitus type: type 2 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) (10) Dyspnea Code(s): R06.00 - DYSPNEA, UNSPECIFIED Qualifiers: Dyspnea type: dyspnea on exertion Qualified Code(s): R06.09 - Other forms of dyspnea (11) HTN (hypertension) Code(s): I10 - ESSENTIAL (PRIMARY) HYPERTENSION Qualifiers: Hypertension type: essential hypertension Qualified Code(s): I10 - Essential (primary) hypertension (12) Hx of CABG Code(s): Z95.1 - PRESENCE OF AORTOCORONARY BYPASS GRAFT (13) Hypercholesterolemia Code(s): E78.0 - PURE HYPERCHOLESTEROLEMIA * DO NOT USE * (14) Hypothyroidism Code(s): E03.9 - HYPOTHYROIDISM, UNSPECIFIED Qualifiers: Hypothyroidism type: unspecified Qualified Code(s): E03.9 - Hypothyroidism, unspecified (15) ICD (implantable cardioverter-defibrillator) in place Code(s): Z95.810 - PRESENCE OF AUTOMATIC (IMPLANTABLE) CARDIAC DEFIBRILLATOR (16) Peripheral arterial disease Code(s): I73.9 - PERIPHERAL VASCULAR DISEASE, UNSPECIFIED (17) S/P TURP (status post transurethral resection of prostate) Code(s): Z90.79 - ACQUIRED ABSENCE OF OTHER GENITAL ORGAN(S) (18) Systolic dysfunction with acute on chronic heart failure Code(s): I50.23 - ACUTE ON CHRONIC SYSTOLIC (CONGESTIVE) HEART FAILURE Assessment/Plan 1. Clinical presentation c/w LV systolic/diastolic failure with pedal edema, acute on chronic 2. CAD s/p CABG, angina pectoris 3. HTN/HCVD 4. Hypercholesterolemia 5. Type 2 diabetes mellitus 6. Post ICD (Medtronic) for ventricular tachycardia 7. 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 Carotid artery disease 9. History of UTI and pneumonia PLAN: 1. Diuretics IV Lasix with monitoring I/Os, daily weight, renal function and electrolytes 2. Continue ASA and Plavix 3. Continue Carvedilol as tolerated. Further plans are to follow Keyon Fair MD
[2016-08-29 13:20] VITALS: BMI 22.9
[2016-08-29] MEDS: FUROSEMIDE 40 MG/4 ML INJECTABLE VIAL IVPUSH SCH (13:40)
--- NOTE | 2016-08-29 15:08 | CON.PULM ---
Consult Consult Specialty:: PULMONARY Referred by:: Dr. Noonan Reason for Consultation:: shortness of breath - History of Present Illness Chief Complaint: shortness of breath History of Present Illness: 86yo male with h/o HTN, DM, CAD s/p CABG, LV Systolic Dysfunction s/p ICD, PAD, recent admission for CHF and urinary retention who presents with worsening shortness of breath x 2 days. He denies any chest pain or discomfort. + nonproductive cough but without wheezes. No fevers, chills or sweats. He does report increase in his leg swelling as well and dyspnea with minimal exertion. He reports compliance with his home medications and diet. - History Source History Provided By: Patient, Medical Record Limitations to Obtaining History: No Limitations - Past Medical History Cardio/Vascular: Yes: CAD (CABG), HTN, Mitral Insufficiency, Other (ICD for induced ventricular tachycardia) Pulmonary: Yes: COPD Gastrointestinal: Yes: Other (recent C diff colitis, gallstones, chronic cholecystitis) Renal/: Yes: Renal Failure (had ARF last month in September creat bumped to 2), BPH, Renal Calculi Infectious Disease: Yes: C-Diff Musculoskeletal: Yes: Other (L foot wound s/p partial amputation) Endocrine: Yes: Diabetes Mellitus, Other (diabetic neuropathy) - Past Surgical History Past Surgical History: Yes: AICD, Amputation (TMA), Bypass, CABG, Stent - Alcohol/Substance Use Hx Alcohol Use: No History of Substance Use: reports: None - Smoking History Smoking history: Former smoker Have you smoked in the past 12 months: No Aproximately how many cigarettes per day: 0 If you are a former smoker, when did you quit?: 2009 - Social History Usual Living Arrangement: With Spouse ADL: Family Assistance History of Recent Travel: No Home Medications - Allergies Allergies/Adverse Reactions: Allergies Allergy/AdvReac Type Severity Reaction Status Date / Time No Known Allergies Allergy Verified 08/29/16 01:56 - Home Medications Home Medications: Ambulatory Orders Ascorbate Calcium [Vitamin C] 500 mg PO DAILY 01/20/14 Aspirin [ASA -] 81 mg PO DAILY 01/20/14 Carvedilol 3.125 mg PO BID 01/20/14 Clopidogrel Bisulfate [Plavix -] 75 mg PO DAILY 01/20/14 Dutasteride [Avodart] 0.5 mg PO HS 01/20/14 Folic Acid - 1 mg PO DAILY 01/20/14 Levothyroxine [Synthroid -] 50 mcg PO SUFRSA 01/20/14 Pregabalin [Lyrica -] 50 mg PO DAILY 01/20/14 Ranitidine HCl [Zantac] 150 mg PO BID 01/20/14 Tamsulosin HCl [Flomax -] 0.4 mg PO DAILY 01/20/14 Furosemide [Lasix -] 20 mg PO DAILY 10/25/15 Magnesium 200 mg PO DAILY 10/25/15 Levothyroxine [Synthroid -] 75 mcg PO MOTUWETH 07/21/16 Acetaminophen [Tylenol .Regular Strength -] 650 mg PO Q6H PRN #0 tablet Sodium Chloride Nasal [place] [[place] Nasal [place] -] 2 spray NS Q4H PRN #0 bottle 07/27/16 Bacitracin - [Bacitracin Topical Ointment -] 1 applic TP DAILY tube 08/07/16 Docusate Sodium [Colace -] 100 mg PO DAILY capsule 08/07/16 Guaifenesin Dm [Robitussin Dm -] 10 ml PO Q6H PRN #0 cup 08/07/16 Nystatin Cream [Mycostatin Cream -] 1 applic TP BID applic 08/07/16 Polyethylene Glycol 3350 [Miralax 119 gm Btl -] 17 gm PO DAILY bottle 08/07/16 Family Disease History - Family Disease History Family Disease History: Heart Disease: Mother, Brother (liver [place]), [place]: Brother Review of Systems - Review of Systems Constitutional: denies: Chills, Fever HENT: denies: Nasal Congestion, Throat Pain Neck: denies: Stiffness, Tenderness Cardiovascular: reports: Edema, Shortness of Breath. denies: Chest Pain, Palpitations Respiratory: reports: Cough, Exercise Intolerance, SOB on Exertion. denies: Hemoptysis, Wheezing Gastrointestinal: denies: Abdominal Pain, Nausea, Vomiting Genitourinary: denies: Dysuria, Hematuria Neurological: denies: Dizziness, Headache Endocrine: denies: Unexplained Weight Gain, Unexplained Weight Loss Physical Exam Vital Sings: Vital Signs Temperature 98.2 F 08/29/16 04:14 Pulse Rate 76 08/29/16 13:17 Respiratory Rate 20 08/29/16 13:17 Blood Pressure 119/53 08/29/16 13:17 O2 Sat by Pulse Oximetry (%) 97 08/29/16 11:30 Constitutional: Yes: No Distress, Calm Eyes: Yes: Conjunctiva Clear, EOM Intact HENT: Yes: Atraumatic, Normocephalic Neck: Yes: Supple, Trachea Midline Cardiovascular: Yes: Regular Rate and Rhythm Respiratory: Yes: Regular, Rales (basilar) ...Clubbing: No Gastrointestinal: Yes: Normal Bowel Sounds, Soft. No: Tenderness Edema: Yes Neurological: Yes: Alert, Oriented Imaging - Results Chest X-ray: Report Reviewed, Image Reviewed (pulmonary vascular congestion, bilateral effusions) Problem List - Problems (1) Acute on chronic systolic (congestive) heart failure Code(s): I50.23 - ACUTE ON CHRONIC SYSTOLIC (CONGESTIVE) HEART FAILURE (2) Pleural effusion Code(s): J90 - PLEURAL EFFUSION, NOT ELSEWHERE CLASSIFIED (3) CKD (chronic kidney disease) Code(s): N18.9 - CHRONIC KIDNEY DISEASE, UNSPECIFIED (4) ASHD (arteriosclerotic heart disease) Code(s): I25.10 - ATHSCL HEART DISEASE OF [place] CORONARY ARTERY W/O ANG PCTRS (5) Diabetes mellitus Code(s): E11.9 - TYPE 2 DIABETES MELLITUS WITHOUT COMPLICATIONS Qualifiers: Diabetes mellitus type: type 2 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) (6) HTN (hypertension) Code(s): I10 - ESSENTIAL (PRIMARY) HYPERTENSION Qualifiers: Hypertension type: essential hypertension Qualified Code(s): I10 - Essential (primary) hypertension (7) Hypercholesterolemia Code(s): E78.0 - PURE HYPERCHOLESTEROLEMIA * DO NOT USE * Assessment/Plan Acute on Chronic LV Systolic Heart Failure Pleural Effusions from above CAD s/p CABG HTN DM Hypercholesterolemia r/o UTI - IV lasix - monitor urine output, creatinine - daily weights, I/Os - inhaled bronchodilators - O2 to keep SpO2 >90% - f/u cultures, received empiric antibiotics - repeat CXR in 2-3 days to assess response to diuretics - DVT prophylaxis Thank you for this consult Andres Farfan MD
--- NOTE | 2016-08-29 15:39 | CONSULT ---
[id number] SOB History of Present Illness: The patient is a 86 yo male with a history of left lower ext bypass and TMA. He came to the ER for worsening SOB. He had been taking lasix at home and overall the swelling has improved in his ankles, but even with small movements he has SOB. The patient states that he had fallen when he was trying to reach the phone and had some injuries to his lower ext b/l. He had been seen by Dr. Trejo on 07/25/2015 while admitted for CHF and had blisters over the left helms. Since then, his has been placing bacitracin to his wounds. He denies any fever, has had a nonproductive cough. - History Source History Provided By: Patient - Past Medical History Cardio/Vascular: Yes: CAD (CABG), HTN, Mitral Insufficiency, Other (ICD for induced ventricular tachycardia) Pulmonary: Yes: COPD Gastrointestinal: Yes: Other (recent C diff colitis, gallstones, chronic cholecystitis) Renal/: Yes: Renal Failure (had ARF last month in September creat bumped to 2), BPH, Renal Calculi Infectious Disease: Yes: C-Diff Musculoskeletal: Yes: Other (L foot wound s/p partial amputation) Endocrine: Yes: Diabetes Mellitus, Other (diabetic neuropathy) - Past Surgical History Past Surgical History: Yes: AICD, Amputation (TMA), Bypass, CABG, Stent - Alcohol/Substance Use Hx Alcohol Use: No History of Substance Use: reports: None - Smoking History Smoking history: Former smoker Have you smoked in the past 12 months: No Aproximately how many cigarettes per day: 0 If you are a former smoker, when did you quit?: 2009 - Social History Usual Living Arrangement: With Spouse ADL: Family Assistance History of Recent Travel: No <Genevieve Dooley - Last Filed: 08/29/16 16:05> Home Medications <Genevieve Dooley - Last Filed: 08/29/16 16:05> <Loyd Small - Last Filed: 09/14/16 17:22> - Allergies Allergies/Adverse Reactions: Allergies Allergy/AdvReac Type Severity Reaction Status Date / Time No Known Allergies Allergy Verified 08/29/16 01:56 - Home Medications Home Medications: Ambulatory Orders Ascorbate Calcium [Vitamin C] 500 mg PO DAILY 01/20/14 Aspirin [ASA -] 81 mg PO DAILY 01/20/14 Carvedilol 3.125 mg PO BID 01/20/14 Clopidogrel Bisulfate [Plavix -] 75 mg PO DAILY 01/20/14 Dutasteride [Avodart] 0.5 mg PO HS 01/20/14 Folic Acid - 1 mg PO DAILY 01/20/14 Levothyroxine [Synthroid -] 50 mcg PO SUFRSA 01/20/14 Pregabalin [Lyrica -] 50 mg PO DAILY 01/20/14 Ranitidine HCl [Zantac] 150 mg PO BID 01/20/14 Tamsulosin HCl [Flomax -] 0.4 mg PO DAILY 01/20/14 Magnesium 200 mg PO DAILY 10/25/15 Levothyroxine [Synthroid -] 75 mcg PO MOTUWETH 07/21/16 Acetaminophen [Tylenol .Regular Strength -] 650 mg PO Q6H PRN #0 tablet Sodium Chloride Nasal [place] [[place] Nasal [place] -] 2 spray NS Q4H PRN #0 bottle 07/27/16 Bacitracin - [Bacitracin Topical Ointment -] 1 applic TP DAILY tube 08/07/16 Docusate Sodium [Colace -] 100 mg PO DAILY capsule 08/07/16 Guaifenesin Dm [Robitussin Dm -] 10 ml PO Q6H PRN #0 cup 08/07/16 Nystatin Cream [Mycostatin Cream -] 1 applic TP BID applic 08/07/16 Polyethylene Glycol 3350 [Miralax 119 gm Btl -] 17 gm PO DAILY bottle 08/07/16 Furosemide [Lasix -] 20 mg PO BID@0600,1400 #180 tablet 09/02/16 Insulin Sliding Scale [Novolog Vial Sliding Scale -] 0 vial SQ ACHS units 09/02 Levofloxacin [Levaquin -] 250 mg PO DAILY@0600 #7 tablet 09/02/16 Losartan Potassium [Cozaar -] 25 mg PO DAILY #90 tablet 09/02/16 Rosuvastatin [Crestor -] 10 mg PO HS #90 tablet 09/02/16 Family Disease History - Family Disease History Family Disease History: Heart Disease: Mother, Brother (liver [place]), [place]: Brother <Genevieve Dooley - Last Filed: 08/29/16 16:05> Review of Systems - Review of Systems Constitutional: denies: Chills, Fever Cardiovascular: reports: Edema, Shortness of Breath. denies: Chest Pain, Palpitations Respiratory: reports: Cough (non-productive) Integumentary: reports: Other (bilateral open wounds to lower ext and chronic right great toe callous) <Genevieve Dooley - Last Filed: 08/29/16 16:05> Physical Exam Vital Signs: Vital Signs Temperature 98.2 F 08/29/16 04:14 Pulse Rate 76 08/29/16 13:17 Respiratory Rate 20 08/29/16 13:17 Blood Pressure 119/53 08/29/16 13:17 O2 Sat by Pulse Oximetry (%) 97 08/29/16 11:30 Constitutional: Yes: Calm Cardiovascular: Yes: Regular Rate and Rhythm Respiratory: Yes: Regular Gastrointestinal: Yes: WNL, Normal Bowel Sounds, Soft Extremities: Yes: Deformity (left TMA site healed). No: Cyanosis Edema: Yes Edema: LLE: 2+, RLE: 2+ Peripheral Pulses WNL: Yes (+2DP RLE, palpable pulse in bypass to left) Integumentary: Yes: Other (bilateral shins with superfical wounds. RLE with 1 x4 cm wound with evelyn edge. No erythema. LLE with 1x3 and 2x2cm connecting lesions with evelyn edges, no erythema. No drainage noted. Right great toe with small callous over the distal phalange/near the nail bed.) Neurological: Yes: WNL, Alert, Oriented Psychiatric: Yes: WNL, Alert, Oriented Labs: CBC, BMP 08/29/16 02:21 CMP Sodium 136 mmol/L (136-145) 08/29/16 02:21 Potassium 4.4 mmol/L (3.5-5.1) 08/29/16 02:21 Chloride 103 mmol/L (98-107) 08/29/16 02:21 Carbon Dioxide 22 mmol/L (21-32) D 08/29/16 02:21 Anion Gap 11 (8-16) 08/29/16 02:21 BUN 62 mg/dL (7-18) H 08/29/16 02:21 Creatinine 1.8 mg/dL (0.7-1.3) H 08/29/16 02:21 Creat Clearance w eGFR 36.04 (>60) 08/29/16 02:21 POC Glucometer 147.04611 UNITS (()) 08/29/16 11:43 Random Glucose 184 mg/dL (74-106) H D 08/29/16 02:21 Lactic Acid 1.366 mmol/L (0.4-2.0) 08/29/16 02:21 Calcium 7.9 mg/dL (8.5-10.1) L 08/29/16 02:21 Total Bilirubin 0.4 mg/dL (0.2-1.0) 08/29/16 02:21 AST 42 U/L (15-37) H D 08/29/16 02:21 ALT 47 U/L (12-78) 08/29/16 02:21 Alkaline Phosphatase 115 U/L (45-117) D 08/29/16 02:21 Creatine Kinase 91 IU/L (39-308) 08/29/16 02:21 Troponin I 0.02 ng/ml (0.00-0.05) D 08/29/16 02:21 B-Natriuretic Peptide 48990.75 pg/ml (5-450) H 08/29/16 02:21 Total Protein 6.9 g/dl (6.4-8.2) 08/29/16 02:21 Albumin 2.7 g/dl (3.4-5.0) L 08/29/16 02:21 <Genevieve Dooley - Last Filed: 08/29/16 16:05> Vital Signs: Vital Signs Temperature 98.2 F 09/02/16 10:00 Pulse Rate 72 09/02/16 10:00 Respiratory Rate 18 09/02/16 10:00 Blood Pressure 112/45 09/02/16 10:00 O2 Sat by Pulse Oximetry (%) 96 09/02/16 09:00 Labs: CBC, BMP 09/01/16 05:35 09/02/16 06:10 <Loyd Small - Last Filed: 09/14/16 17:22> Imaging - Results Chest X-ray: Other (moderate b/l pleural effusion with ?underlying bibasilar densities) <Genevieve Dooley - Last Filed: 08/29/16 16:05> Problem List - Problems (1) CHF exacerbation Assessment/Plan: Medical management for SOB exacerbation as per pulmonary/cardiology with IV lasix Continue with local wound care to his lower extremities with bacitracin and cover wounds No evidence of any acute changes/ischemic changes to his lower extremities. Code(s): I50.9 - HEART FAILURE, UNSPECIFIED Qualifiers: Congestive heart failure type: unspecified congestive heart failure type Qualified Code(s): I50.9 - Heart failure, unspecified <Genevieve Dooley - Last Filed: 08/29/16 16:05> Assessment/Plan Patient seen and examined with PA staff. Agree with plans as outlined. <Loyd Small - Last Filed: 09/14/16 17:22>
[2016-08-29] MEDS ORDERED: INSULIN (NOVOLOG) ASPART 100 UNITS/ML 10ML VIAL ONE (16:29)
[2016-08-29] MEDS: ACETAMINOPHEN 325 MG TABLET (FP) PO PRN (16:50)
[2016-08-29] MEDS ORDERED: PT OWN MED DRAWER 7, Y5N ONE (21:32)
[2016-08-29] MEDS: DUTASTERIDE 0.5 MG CAP (FP) PO SCH (21:47)
[2016-08-30] MEDS: INSULIN SLIDING SCALE (NOVOLOG) 1 VIAL SQ SCH ×4 (06:38→23:04)
[2016-08-30] MEDS: LEVOTHYROXINE NA 75 MCG TABLET (FP) PO SCH (06:45)
[2016-08-30] MEDS: FUROSEMIDE 40 MG/4 ML INJECTABLE VIAL IVPUSH SCH ×2 (06:45→14:15)
[2016-08-30 08:26] LABS: BASOPHIL 0.8 % (0-2.0); EOSINOPHIL 7.7 % (0-4.5); MCH 34.7 pg (25.7-33.7); MCHC 33.1 g/dl (32.0-35.9); MEAN CELL VOLUME 104.8 fl (80-96); MEAN PLT VOLUME 9.7 fl (7.5-11.1); NEUTROPHILS 65.9 % (42.8-82.8); PLATELET COUNT 110 K/MM3 (134-434); RDW 16.5 % (11.9-15.9); WHITE BLOOD COUNT 4.3 K/mm3 (4.0-10.0)
[2016-08-30 08:41] LABS: ALBUMIN 2.6 g/dl (3.4-5.0); CALCIUM 8.4 mg/dL (8.5-10.1)
[2016-08-30 08:54] LABS: BILIRUBIN,TOTAL 0.5 mg/dL (0.2-1.0); CREATININE 1.7 mg/dL (0.7-1.3); THYROID STIMULATING HORMONE 4.64 uIU/ml (0.358-3.74); TOT PROT 6.4 g/dl (6.4-8.2); TROPONIN I 0.02 ng/ml (0.00-0.05)
[2016-08-30] MEDS: FOLIC ACID 1 MG TABLET (FP) PO SCH (09:35)
[2016-08-30] MEDS: CARVEDILOL 3.125 MG TABLET (FP) PO SCH ×2 (09:35→22:55)
[2016-08-30] MEDS: RANITIDINE HCL 150 MG TABLET (FP) PO SCH ×2 (09:35→22:56)
[2016-08-30] MEDS: ASPIRIN 81 MG CHEWABLE TABLETS PO SCH (09:35)
[2016-08-30] MEDS: LEVOFLOXACIN 250 MG IVPB 50 ML IVPB SCH (09:35)
[2016-08-30] MEDS: PREGABALIN 50 MG CAPSULE PO SCH (09:35)
[2016-08-30] MEDS: DOCUSATE SODIUM 100 MG CAPSULE (FP) PO SCH (09:35)
[2016-08-30] MEDS: CLOPIDOGREL BISULFATE 75 MG TABLET (FP) PO SCH (09:35)
[2016-08-30] MEDS: POLYETHYLENE GLYCOL 3350 119 GM BTL PO SCH (09:37)
[2016-08-30] MEDS: TAMSULOSIN HCL 0.4 MG CAP.ER.24H (FP) PO SCH (09:41)
--- NOTE | 2016-08-30 10:17 | PN ---
Progress Note (short form) - Note Progress Note: Chief Complaint: Events noted, notes reviewed, dyspnea and peripheral edema improved, denies any chest pain History of Present Illness: See and examined on telemetry. Events noted, notes reviewed, dyspnea and peripheral edema improved, denies any chest pain Medications: Current Medications Acetaminophen (Tylenol -) 650 mg PO Q6H PRN PRN Reason: FEVER OR PAIN Last Admin: 08/29/16 16:50 Dose: 650 mg Aspirin (Asa -) 81 mg PO DAILY [facility] Last Admin: 08/30/16 09:35 Dose: 81 mg Bacitracin (Bacitracin -) 1 applic TP DAILY [facility] Last Admin: 08/29/16 10:44 Dose: 1 appful Carvedilol (Coreg -) 3.125 mg PO BID [facility] Last Admin: 08/30/16 09:35 Dose: 3.125 mg Clopidogrel Bisulfate (Plavix -) 75 mg PO DAILY [facility] Last Admin: 08/30/16 09:35 Dose: 75 mg Docusate Sodium (Colace -) 100 mg PO DAILY [facility] Last Admin: 08/30/16 09:35 Dose: 100 mg Dutasteride (Avodart -) 0.5 mg PO HS [facility] Last Admin: 08/29/16 21:47 Dose: 0.5 mg Folic Acid (Folic Acid -) 1 mg PO DAILY [facility] Last Admin: 08/30/16 09:35 Dose: 1 mg Furosemide (Lasix Injection -) 40 mg IVPUSH BID@0600,1400 [facility] Last Admin: 08/30/16 06:45 Dose: 40 mg Guaifenesin (Robitussin Dm -) 10 ml PO Q6H PRN PRN Reason: COUGH Levofloxacin (Levaquin 250 Mg Premixed Ivpb -) 50 mls @ 50 mls/hr IVPB DAILY [facility] Last Admin: 08/30/16 09:35 Dose: 50 mls/hr Insulin Aspart (Novolog Vial Sliding Scale -) 0 vial SQ ACHS [facility] PRN Reason: Protocol Last Admin: 08/30/16 06:38 Dose: Not Given Levothyroxine Sodium (Synthroid -) 50 mcg PO SuFrSa@0700 [facility] Levothyroxine Sodium (Synthroid -) 75 mcg PO MoTuWeTh@0700 [facility] Last Admin: 08/30/16 06:45 Dose: 75 mcg Non-Formulary Medication (Ascorbate Calcium [Vitamin C]) 500 mg PO DAILY [facility] Non-Formulary Medication (Magnesium [Magnesium]) 200 mg PO DAILY [facility] Nystatin (Mycostatin Cream -) 1 applic TP BID [facility] Last Admin: 08/29/16 21:50 Dose: 1 applic Polyethylene Glycol (Miralax (For Daily Use) -) 17 gm PO DAILY [facility] Last Admin: 08/30/16 09:37 Dose: Not Given Pregabalin (Lyrica -) 50 mg PO DAILY [facility] Last Admin: 08/30/16 09:35 Dose: 50 mg Ranitidine HCl (Zantac -) 150 mg PO BID [facility] Last Admin: 08/30/16 09:35 Dose: 150 mg Sodium Chloride ([place] Nasal [place] -) 2 spray NS Q4H PRN PRN Reason: NASAL CONGESTION Tamsulosin HCl (Flomax -) 0.4 mg PO DAILY@0830 [facility] Last Admin: 08/30/16 09:41 Dose: 0.4 mg Review of Systems Cardiovascular: As noted above Respiratory: denies: denies: Cough or Sputum Production Gastrointestinal: denies: Nausea, Vomiting, Diarrhea, Constipation or Abdominal Discomfort Musculoskeletal: No Symptoms Reported Endocrine: No Symptoms Reported Vital Signs: Last Vital Signs Temp Pulse Resp BP Pulse Ox 98.5 F 74 18 121/57 98 08/30/16 08:34 08/30/16 08:34 08/30/16 08:34 08/30/16 08:34 08/29/16 21:00 Neck: Supple Negative JVD Respiratory: Diminished Breath Sounds at the Bases Cardiovascular: S! S2 Regular Rate and Rhythm Gastrointestinal: Soft Benign Normal Bowel Sounds Ext: Trace Edema Labs: CBC, BMP 08/30/16 05:45 08/30/16 05:45 Hepatic Panel Total Bilirubin 0.5 mg/dL (0.2-1.0) D 08/30/16 05:45 AST 33 U/L (15-37) D 08/30/16 05:45 ALT 42 U/L (12-78) 08/30/16 05:45 Alkaline Phosphatase 108 U/L (45-117) 08/30/16 05:45 Albumin 2.6 g/dl (3.4-5.0) L 08/30/16 05:45 Assessment/Plan ASSESSMENT: 1. Clinical presentation is consistent with class II-III NYHA classification LV failure related to LV systolic/diastolic dysfunction, acute on chronic 2. CAD post CABG, angina pectoris 3. HTN 4. NIDDM 5. Hypercholesterolemia 6. 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 Carotid stenosis 8. PAD post [employer] and amputation (TMA) PLAN: 1. Continue IV Lasix with close monitoring of renal function 2. Continue ASA and Plavix 3. Continue Carvedilol hemodynamics permitting 4. Ideally should be on ACEI or ARBS unless absolutely contraindicated, to be initiated pending renal function stabilization Donnie Carbajal MD
--- NOTE | 2016-08-30 10:58 | PN ---
Progress Note, Physician Chief Complaint: feels better less sob but still with difficulty urinating; called On IV levaquin for UTI and possible PNA/ bronchitis consults, tests, meds reviewed and d/w pt - Current Medication List Current Medications: Active Medications Acetaminophen (Tylenol -) 650 mg PO Q6H PRN PRN Reason: FEVER OR PAIN Last Admin: 08/29/16 16:50 Dose: 650 mg Aspirin (Asa -) 81 mg PO DAILY [facility] Last Admin: 08/30/16 09:35 Dose: 81 mg Bacitracin (Bacitracin -) 1 applic TP DAILY [facility] Last Admin: 08/29/16 10:44 Dose: 1 appful Carvedilol (Coreg -) 3.125 mg PO BID [facility] Last Admin: 08/30/16 09:35 Dose: 3.125 mg Clopidogrel Bisulfate (Plavix -) 75 mg PO DAILY [facility] Last Admin: 08/30/16 09:35 Dose: 75 mg Docusate Sodium (Colace -) 100 mg PO DAILY [facility] Last Admin: 08/30/16 09:35 Dose: 100 mg Dutasteride (Avodart -) 0.5 mg PO HS [facility] Last Admin: 08/29/16 21:47 Dose: 0.5 mg Folic Acid (Folic Acid -) 1 mg PO DAILY [facility] Last Admin: 08/30/16 09:35 Dose: 1 mg Furosemide (Lasix Injection -) 40 mg IVPUSH BID@0600,1400 [facility] Last Admin: 08/30/16 06:45 Dose: 40 mg Guaifenesin (Robitussin Dm -) 10 ml PO Q6H PRN PRN Reason: COUGH Levofloxacin (Levaquin 250 Mg Premixed Ivpb -) 50 mls @ 50 mls/hr IVPB DAILY [facility] Last Admin: 08/30/16 09:35 Dose: 50 mls/hr Insulin Aspart (Novolog Vial Sliding Scale -) 0 vial SQ ACHS [facility] PRN Reason: Protocol Last Admin: 08/30/16 06:38 Dose: Not Given Levothyroxine Sodium (Synthroid -) 50 mcg PO SuFrSa@0700 [facility] Levothyroxine Sodium (Synthroid -) 75 mcg PO MoTuWeTh@0700 [facility] Last Admin: 08/30/16 06:45 Dose: 75 mcg Non-Formulary Medication (Ascorbate Calcium [Vitamin C]) 500 mg PO DAILY [facility] Non-Formulary Medication (Magnesium [Magnesium]) 200 mg PO DAILY [facility] Nystatin (Mycostatin Cream -) 1 applic TP BID [facility] Last Admin: 08/29/16 21:50 Dose: 1 applic Polyethylene Glycol (Miralax (For Daily Use) -) 17 gm PO DAILY [facility] Last Admin: 08/30/16 09:37 Dose: Not Given Pregabalin (Lyrica -) 50 mg PO DAILY [facility] Last Admin: 08/30/16 09:35 Dose: 50 mg Ranitidine HCl (Zantac -) 150 mg PO BID [facility] Last Admin: 08/30/16 09:35 Dose: 150 mg Sodium Chloride ([place] Nasal [place] -) 2 spray NS Q4H PRN PRN Reason: NASAL CONGESTION Tamsulosin HCl (Flomax -) 0.4 mg PO DAILY@0830 [facility] Last Admin: 08/30/16 09:41 Dose: 0.4 mg - Objective Vital Signs: Vital Signs Temperature 98.5 F 08/30/16 08:34 Pulse Rate 74 08/30/16 08:34 Respiratory Rate 18 08/30/16 08:34 Blood Pressure 121/57 08/30/16 08:34 O2 Sat by Pulse Oximetry (%) 98 08/29/16 21:00 Constitutional: Yes: No Distress, Calm Eyes: Yes: Conjunctiva Clear HENT: Yes: Atraumatic Neck: Yes: Supple Cardiovascular: Yes: Regular Rate and Rhythm Respiratory: Yes: Diminished Gastrointestinal: Yes: Soft. No: Distention, Tenderness Genitourinary: No: Hematuria Musculoskeletal: No: Joint Stiffness, Joint Swelling Extremities: No: Cold, Cool Edema: Yes (legs, less) Integumentary: No: Pressure Ulcer, Rash, Venous Stasis Changes Neurological: Yes: WNL, Alert, Oriented ...Motor Strength: WNL Psychiatric: Yes: WNL, Alert, Oriented. No: Agitated, Suicidal Ideation Labs: CBC, BMP 08/30/16 05:45 08/30/16 05:45 INR, PTT INR 1.36 (0.82-1.09) H 08/29/16 02:21 - ....Imaging Other: Report Reviewed Assessment/Plan 86 year old with a significant PMH of CAD, PVD, diabetes, hypertension, CHF, CABG s/p 3 stents and defibrillator, enlarged prostate, kidney stones, and UTI presents to ED with dry cough, shortness of breath, difficulty urinating, and swelling to lower legs bilaterally. Bronchitis vs PNA, CHF fluid overload, COPD exac; UTI & BPH difficulty urination; general weakness unsteady gait d/w pt and Patient's admitted to monitored unit cardiology and pulmonary f/u, eval IV lasix; nebs prn IV ATB eval; vascular sx f/u fall decubs DVT falls PFX PT rehab and director of casework department eval prognosis guarded d/w pt and and staff; orders in t time 35 min
[2016-08-30] MEDS: BACITRACIN 30 GM TUBE TOPICAL OINTMENT TP SCH (11:14)
--- NOTE | 2016-08-30 11:14 | CONSULT ---
Consult - text type - Consultation Consultation Note: Pt 3 weeks s/p Laser BPH procedure Had some voiding difficulty previously Voided 300 cc as well as unmeasured amount Urine clear yellow Bladder non palp If retaining would rec urodynamics Cont abx
[2016-08-30] MEDS: NYSTATIN 100,000 UNIT/GM TOPICAL CREAM 15 GM TUBE TP SCH ×2 (11:15→22:56)
[2016-08-30] MEDS: ASCORBIC ACID 500 MG TABLET (FP) PO SCH (13:08)
--- NOTE | 2016-08-30 14:19 | PN ---
Progress Note (short form) - Note Progress Note: Breathing feels a little better today. No CP. Afebrile. Intake & Output 08/27/16 08/28/16 08/29/16 08/30/16 23:59 23:59 23:59 23:59 Intake Total 300 350 Output Total 800 Balance -500 350 Weight 160 lb 152 lb 2 oz Last Vital Signs Temp Pulse Resp BP Pulse Ox 98.5 F 74 18 121/57 98 08/30/16 08:34 08/30/16 08:34 08/30/16 08:34 08/30/16 08:34 08/29/16 21:00 Active Medications Acetaminophen (Tylenol -) 650 mg PO Q6H PRN PRN Reason: FEVER OR PAIN Last Admin: 08/29/16 16:50 Dose: 650 mg Ascorbic Acid (Vitamin C -) 500 mg PO DAILY [facility] Last Admin: 08/30/16 13:08 Dose: 500 mg Aspirin (Asa -) 81 mg PO DAILY [facility] Last Admin: 08/30/16 09:35 Dose: 81 mg Bacitracin (Bacitracin -) 1 applic TP DAILY [facility] Last Admin: 08/30/16 11:14 Dose: 1 appful Carvedilol (Coreg -) 3.125 mg PO BID [facility] Last Admin: 08/30/16 09:35 Dose: 3.125 mg Clopidogrel Bisulfate (Plavix -) 75 mg PO DAILY [facility] Last Admin: 08/30/16 09:35 Dose: 75 mg Docusate Sodium (Colace -) 100 mg PO DAILY [facility] Last Admin: 08/30/16 09:35 Dose: 100 mg Dutasteride (Avodart -) 0.5 mg PO HS [facility] Last Admin: 08/29/16 21:47 Dose: 0.5 mg Folic Acid (Folic Acid -) 1 mg PO DAILY [facility] Last Admin: 08/30/16 09:35 Dose: 1 mg Furosemide (Lasix Injection -) 40 mg IVPUSH BID@0600,1400 [facility] Last Admin: 08/30/16 14:15 Dose: 40 mg Guaifenesin (Robitussin Dm -) 10 ml PO Q6H PRN PRN Reason: COUGH Levofloxacin (Levaquin 250 Mg Premixed Ivpb -) 50 mls @ 50 mls/hr IVPB DAILY [facility] Last Admin: 08/30/16 09:35 Dose: 50 mls/hr Insulin Aspart (Novolog Vial Sliding Scale -) 0 vial SQ ACHS [facility] PRN Reason: Protocol Last Admin: 08/30/16 11:52 Dose: Not Given Levothyroxine Sodium (Synthroid -) 50 mcg PO SuFrSa@0700 [facility] Levothyroxine Sodium (Synthroid -) 75 mcg PO MoTuWeTh@0700 [facility] Last Admin: 08/30/16 06:45 Dose: 75 mcg Non-Formulary Medication (Magnesium [Magnesium]) 200 mg PO DAILY [facility] Nystatin (Mycostatin Cream -) 1 applic TP BID [facility] Last Admin: 08/30/16 11:15 Dose: 1 applic Polyethylene Glycol (Miralax (For Daily Use) -) 17 gm PO DAILY [facility] Last Admin: 08/30/16 09:37 Dose: Not Given Pregabalin (Lyrica -) 50 mg PO DAILY [facility] Last Admin: 08/30/16 09:35 Dose: 50 mg Ranitidine HCl (Zantac -) 150 mg PO BID [facility] Last Admin: 08/30/16 09:35 Dose: 150 mg Sodium Chloride ([place] Nasal [place] -) 2 spray NS Q4H PRN PRN Reason: NASAL CONGESTION Tamsulosin HCl (Flomax -) 0.4 mg PO DAILY@0830 [facility] Last Admin: 08/30/16 09:41 Dose: 0.4 mg Constitutional: Yes: No Distress Eyes: Yes: Conjunctiva Clear, EOM Intact HENT: Yes: Atraumatic, Normocephalic Neck: Yes: Supple, Trachea Midline Cardiovascular: Yes: Regular Rate and Rhythm Respiratory: Yes: Bibasilar Rales ...Clubbing: No Gastrointestinal: Yes: Normal Bowel Sounds, Soft. No: Tenderness Edema: Yes Neurological: Yes: Alert, Oriented Laboratory Results - last 24 hr 08/29/16 08/29/16 08/29/16 11:43 16:48 21:39 WBC RBC Hgb Hct MCV MCHC RDW Plt Count MPV Neutrophils % Lymphocytes % Monocytes % Eosinophils % Basophils % Sodium Potassium Chloride Carbon Dioxide Anion Gap BUN Creatinine Creat Clearance w eGFR POC Glucometer 147.03463 157 136 Random Glucose Calcium Total Bilirubin AST ALT Alkaline Phosphatase Creatine Kinase Troponin I B-Natriuretic Peptide Total Protein Albumin TSH 08/30/16 08/30/16 08/30/16 05:45 05:45 05:48 WBC 4.3 RBC 2.88 L Hgb 10.0 L Hct 30.2 L MCV 104.8 H MCHC 33.1 RDW 16.5 H Plt Count 110 L MPV 9.7 Neutrophils % 65.9 Lymphocytes % 11.5 D Monocytes % 14.1 H Eosinophils % 7.7 H Basophils % 0.8 Sodium 141 Potassium 4.0 Chloride 104 Carbon Dioxide 28 D Anion Gap 9 BUN 60 H Creatinine 1.7 H Creat Clearance w eGFR 38.50 POC Glucometer 89 Random Glucose 81 D Calcium 8.4 L Total Bilirubin 0.5 D AST 33 D ALT 42 Alkaline Phosphatase 108 Creatine Kinase 70 Troponin I 0.02 B-Natriuretic Peptide 59654.27 H Total Protein 6.4 Albumin 2.6 L TSH 4.64 H D 08/30/16 11:31 WBC RBC Hgb Hct MCV MCHC RDW Plt Count MPV Neutrophils % Lymphocytes % Monocytes % Eosinophils % Basophils % Sodium Potassium Chloride Carbon Dioxide Anion Gap BUN Creatinine Creat Clearance w eGFR POC Glucometer 132 Random Glucose Calcium Total Bilirubin AST ALT Alkaline Phosphatase Creatine Kinase Troponin I B-Natriuretic Peptide Total Protein Albumin TSH Problem List - Problems (1) Acute on chronic systolic (congestive) heart failure Code(s): I50.23 - ACUTE ON CHRONIC SYSTOLIC (CONGESTIVE) HEART FAILURE (2) Pleural effusion Code(s): J90 - PLEURAL EFFUSION, NOT ELSEWHERE CLASSIFIED (3) CKD (chronic kidney disease) Code(s): N18.9 - CHRONIC KIDNEY DISEASE, UNSPECIFIED (4) ASHD (arteriosclerotic heart disease) Code(s): I25.10 - ATHSCL HEART DISEASE OF [place] CORONARY ARTERY W/O ANG PCTRS (5) Diabetes mellitus Code(s): E11.9 - TYPE 2 DIABETES MELLITUS WITHOUT COMPLICATIONS Qualifiers: Diabetes mellitus type: type 2 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
[2016-08-30] MEDS: DUTASTERIDE 0.5 MG CAP (FP) PO SCH (22:55)
[2016-08-30] MEDS: ACETAMINOPHEN 325 MG TABLET (FP) PO PRN (23:10)
[2016-08-31] MEDS: LEVOTHYROXINE NA 75 MCG TABLET (FP) PO SCH (06:56)
[2016-08-31] MEDS: FUROSEMIDE 40 MG/4 ML INJECTABLE VIAL IVPUSH SCH ×2 (06:56→14:14)
[2016-08-31] MEDS: INSULIN SLIDING SCALE (NOVOLOG) 1 VIAL SQ SCH ×4 (06:56→23:16)
[2016-08-31 07:52] LABS: CALCIUM 8.4 mg/dL (8.5-10.1); CREATININE 1.7 mg/dL (0.7-1.3)
[2016-08-31] MEDS: BACITRACIN 30 GM TUBE TOPICAL OINTMENT TP SCH (09:37)
[2016-08-31] MEDS: ASPIRIN 81 MG CHEWABLE TABLETS PO SCH (09:37)
[2016-08-31] MEDS: TAMSULOSIN HCL 0.4 MG CAP.ER.24H (FP) PO SCH (09:37)
[2016-08-31] MEDS: CLOPIDOGREL BISULFATE 75 MG TABLET (FP) PO SCH (09:38)
[2016-08-31] MEDS: CARVEDILOL 3.125 MG TABLET (FP) PO SCH ×2 (09:38→23:15)
[2016-08-31] MEDS: NYSTATIN 100,000 UNIT/GM TOPICAL CREAM 15 GM TUBE TP SCH ×2 (09:38→23:15)
[2016-08-31] MEDS: DOCUSATE SODIUM 100 MG CAPSULE (FP) PO SCH (09:38)
[2016-08-31] MEDS: PREGABALIN 50 MG CAPSULE PO SCH (09:38)
[2016-08-31] MEDS: FOLIC ACID 1 MG TABLET (FP) PO SCH (09:38)
[2016-08-31] MEDS: LEVOFLOXACIN 250 MG IVPB 50 ML IVPB SCH (09:38)
[2016-08-31] MEDS: RANITIDINE HCL 150 MG TABLET (FP) PO SCH ×2 (09:39→23:15)
[2016-08-31] MEDS: ASCORBIC ACID 500 MG TABLET (FP) PO SCH (09:39)
--- NOTE | 2016-08-31 10:06 | PN ---
Progress Note (short form) - Note Progress Note: S: 86 year old gentleman, with history of congestive heart failure, coronary artery disease, s/p CABG, angina pectoris, hypertension, diabetes mellitus, hypercholesterolemia, hypothyroidism, ventricular arrhythmias, s/p ICD, peripheral arterial disease s/p partial amputation of the left foot. History of known healing injuries involving both lower extremities. No history of dyspnea, chest pain or discomfort, no further pedal edema. Appears that congestive heart failure was precipitated by eating pizza. Active Medications Generic Name Dose Route Start Last Admin Trade Name Freq PRN Reason Stop Dose Admin Acetaminophen 650 mg 08/29/16 09:22 08/30/16 23:10 Tylenol - PO 650 mg Q6H PRN Administration FEVER OR PAIN Ascorbic Acid 500 mg 08/30/16 11:45 08/31/16 09:39 Vitamin C - PO 500 mg DAILY [facility] Administration Aspirin 81 mg 08/29/16 10:00 08/31/16 09:37 Asa - PO 81 mg DAILY [facility] Administration Bacitracin 1 applic 08/29/16 10:00 08/31/16 09:37 Bacitracin - TP 1 appful DAILY [facility] Administration Carvedilol 3.125 mg 08/29/16 10:00 08/31/16 09:38 Coreg - PO 3.125 mg BID [facility] Administration Clopidogrel Bisulfate 75 mg 08/29/16 10:00 08/31/16 09:38 Plavix - PO 75 mg DAILY [facility] Administration Docusate Sodium 100 mg 08/29/16 10:00 08/31/16 09:38 Colace - PO 100 mg DAILY [facility] Administration Dutasteride 0.5 mg 08/29/16 22:00 08/30/16 22:55 Avodart - PO 0.5 mg HS [facility] Administration Folic Acid 1 mg 08/29/16 10:00 08/31/16 09:38 Folic Acid - PO 1 mg DAILY [facility] Administration Furosemide 40 mg 08/29/16 14:00 08/31/16 06:56 Lasix Injection - IVPUSH 40 mg BID@0600,1400 [facility] Administration Guaifenesin 10 ml 08/29/16 09:22 08/30/16 23:11 Robitussin Dm - PO 10 ml Q6H PRN Administration COUGH Levofloxacin 50 mls @ 50 mls/hr 08/30/16 10:00 08/31/16 09:38 Levaquin 250 Mg Premixed Ivpb - IVPB 50 mls/hr DAILY [facility] Administration Insulin Aspart 0 vial 08/29/16 11:00 08/31/16 06:56 Novolog Vial Sliding Scale - SQ Not Given ACHS [facility] Protocol Levothyroxine Sodium 50 mcg 09/02/16 07:00 Synthroid - PO SuFrSa@0700 [facility] Levothyroxine Sodium 75 mcg 08/29/16 09:30 08/31/16 06:56 Synthroid - PO 75 mcg MoTuWeTh@0700 [facility] Administration Non-Formulary Medication 200 mg 08/29/16 10:00 Magnesium [Magnesium] PO DAILY [facility] Nystatin 1 applic 08/29/16 10:00 08/31/16 09:38 Mycostatin Cream - TP 1 applic BID [facility] Administration Polyethylene Glycol 17 gm 08/29/16 10:00 08/30/16 09:37 Miralax (For Daily Use) - PO Not Given DAILY [facility] Pregabalin 50 mg 08/29/16 10:00 08/31/16 09:38 Lyrica - PO 50 mg DAILY [facility] Administration Ranitidine HCl 150 mg 08/29/16 10:00 08/31/16 09:39 Zantac - PO 150 mg BID [facility] Administration Sodium Chloride 2 spray 08/29/16 09:22 [place] Nas[place] - NS Q4H PRN NASAL CONGESTION Tamsulosin HCl 0.4 mg 08/29/16 10:00 08/31/16 09:37 Flomax - PO 0.4 mg DAILY@0830 [facility] Administration O: 86 year old male was in no acute distress, no pallor, cyanosis, clubbing, or jaundice. Last Vital Signs Temp Pulse Resp BP Pulse Ox 97.4 F L 76 20 120/48 100 08/31/16 05:49 08/31/16 05:49 08/31/16 05:49 08/31/16 05:49 08/30/16 21:00 Neck: Supple, no JVD, negative HJR, carotids were equal and upstrokes were normal, no thyromegaly appreciated. Heart: PMI was in the 5th intercostal space, no heaves or thrills, S1 and S2 were normal. No murmurs or gallops were appreciated. Lungs: Clear on auscultation bilaterally. Abdomen: Soft, nontender, no hepatosplenomegaly appreciated, and no palpable masses were felt. Extremities: No calf tenderness or dependent edema. Partially amputated left foot. Both shins are bandaged. CBC, BMP 08/30/16 05:45 08/31/16 06:50 Laboratory Results - last 24 hr 08/30/16 08/30/16 08/30/16 11:31 17:07 23:03 Sodium Potassium Chloride Carbon Dioxide Anion Gap BUN Creatinine POC Glucometer 132 179 159 Random Glucose Calcium 08/31/16 08/31/16 06:50 06:55 Sodium 141 Potassium 3.8 Chloride 104 Carbon Dioxide 27 Anion Gap 10 BUN 61 H Creatinine 1.7 H POC Glucometer 107 Random Glucose 102 D Calcium 8.4 L Impression: (1) CHF exacerbation Code(s): I50.9 - HEART FAILURE, UNSPECIFIED Qualifiers: Congestive heart failure type: unspecified congestive heart failure type Qualified Code(s): I50.9 - Heart failure, unspecified (2) History of Pleural effusion Code(s): J90 - PLEURAL EFFUSION, NOT ELSEWHERE CLASSIFIED (3) ASHD (arteriosclerotic heart disease) Code(s): I25.10 - ATHSCL HEART DISEASE OF [place] CORONARY ARTERY W/O ANG PCTRS (4) Anemia Code(s): D64.9 - ANEMIA, UNSPECIFIED Qualifiers: Anemia type: unspecified type Qualified Code(s): D64.9 - Anemia, unspecified (5) Benign localized hyperplasia of prostate with urinary obstruction Code(s): N40.1 - BENIGN PROSTATIC HYPERPLASIA WITH LOWER URINARY TRACT SYMP N13.8 - OTHER OBSTRUCTIVE AND REFLUX UROPATHY (6) Carotid artery disease Code(s): I77.9 - DISORDER OF ARTERIES AND ARTERIOLES, UNSPECIFIED (7) Chronic kidney disease Code(s): N18.9 - CHRONIC KIDNEY DISEASE, UNSPECIFIED (8) Diabetes mellitus Code(s): E11.9 - TYPE 2 DIABETES MELLITUS WITHOUT COMPLICATIONS Qualifiers: Diabetes mellitus type: type 2 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) (9) Dyspnea Code(s): R06.00 - DYSPNEA, UNSPECIFIED Qualifiers: Dyspnea type: dyspnea on exertion Qualified Code(s): R06.09 - Other forms of dyspnea (10) HTN (hypertension) Code(s): I10 - ESSENTIAL (PRIMARY) HYPERTENSION Qualifiers: Hypertension type: essential hypertension Qualified Code(s): I10 - Essential (primary) hypertension (11) Hx of CABG Code(s): Z95.1 - PRESENCE OF AORTOCORONARY BYPASS GRAFT (12) Hypercholesterolemia Code(s): E78.0 - PURE HYPERCHOLESTEROLEMIA * DO NOT USE * (13) Hypothyroidism Code(s): E03.9 - HYPOTHYROIDISM, UNSPECIFIED Qualifiers: Hypothyroidism type: unspecified Qualified Code(s): E03.9 - Hypothyroidism, unspecified (14) ICD (implantable cardioverter-defibrillator) in place Code(s): Z95.810 - PRESENCE OF AUTOMATIC (IMPLANTABLE) CARDIAC DEFIBRILLATOR (15) Peripheral arterial disease Code(s): I73.9 - PERIPHERAL VASCULAR DISEASE, UNSPECIFIED (16) Systolic dysfunction with acute on chronic heart failure Code(s): I50.23 - ACUTE ON CHRONIC SYSTOLIC (CONGESTIVE) HEART FAILURE (17) Poor dietary compliance Recommendations: 1. Continue current medication. 2. Patient will most likely require larger dose of Lasix on discharge. 3. Counseled regarding dietary restrictions including curtailing salt intake. 4. Increase ambulation. Attestation: Documentation prepared by Gm Baca, acting as emergency medical technician basic for Gael Holguin MD.
[2016-08-31] MEDS ORDERED: PT OWN MED DRAWER 7, Y5N ONE (11:41)
[2016-08-31] MEDS: POLYETHYLENE GLYCOL 3350 119 GM BTL PO SCH (12:30)
--- NOTE | 2016-08-31 16:11 | PN ---
Progress Note (short form) - Note Progress Note: PULMONARY LYING FLAT IN BED HAS FLORES FAMILY PRESENT VSS/AFEBRILE ANICTERIC DIMINISHED BREATH SOUNDS B/L PACED RHYTM BS+ LESS EDEMA LOWER EXT LABS/MEDS/NOTES/IMAGING/MICRO REVIEWED Acute on Chronic LV Systolic Heart Failure Pleural Effusions CAD s/p CABG HTN DM Hypercholesterolemia r/o UTI - IV lasix - daily weights, I/Os - inhaled bronchodilators - O2 to keep SpO2 >90% - f/u cultures - VTE prophylaxis Andrews PATIÑO MD
--- NOTE | 2016-08-31 19:36 | PN ---
Progress Note, Physician Chief Complaint: in bed nad no new c/o consults and meds reviewed and d/w pt - Current Medication List Current Medications: Active Medications Acetaminophen (Tylenol -) 650 mg PO Q6H PRN PRN Reason: FEVER OR PAIN Last Admin: 08/30/16 23:10 Dose: 650 mg Ascorbic Acid (Vitamin C -) 500 mg PO DAILY [facility] Last Admin: 08/31/16 09:39 Dose: 500 mg Aspirin (Asa -) 81 mg PO DAILY [facility] Last Admin: 08/31/16 09:37 Dose: 81 mg Bacitracin (Bacitracin -) 1 applic TP DAILY [facility] Last Admin: 08/31/16 09:37 Dose: 1 appful Carvedilol (Coreg -) 3.125 mg PO BID [facility] Last Admin: 08/31/16 09:38 Dose: 3.125 mg Clopidogrel Bisulfate (Plavix -) 75 mg PO DAILY [facility] Last Admin: 08/31/16 09:38 Dose: 75 mg Docusate Sodium (Colace -) 100 mg PO DAILY [facility] Last Admin: 08/31/16 09:38 Dose: 100 mg Dutasteride (Avodart -) 0.5 mg PO HS [facility] Last Admin: 08/30/16 22:55 Dose: 0.5 mg Folic Acid (Folic Acid -) 1 mg PO DAILY [facility] Last Admin: 08/31/16 09:38 Dose: 1 mg Furosemide (Lasix Injection -) 40 mg IVPUSH BID@0600,1400 [facility] Last Admin: 08/31/16 14:14 Dose: 40 mg Guaifenesin (Robitussin Dm -) 10 ml PO Q6H PRN PRN Reason: COUGH Last Admin: 08/30/16 23:11 Dose: 10 ml Levofloxacin (Levaquin 250 Mg Premixed Ivpb -) 50 mls @ 50 mls/hr IVPB DAILY [facility] Last Admin: 08/31/16 09:38 Dose: 50 mls/hr Insulin Aspart (Novolog Vial Sliding Scale -) 0 vial SQ ACHS [facility] PRN Reason: Protocol Last Admin: 08/31/16 17:13 Dose: Not Given Levothyroxine Sodium (Synthroid -) 50 mcg PO SuFrSa@0700 [facility] Levothyroxine Sodium (Synthroid -) 75 mcg PO MoTuWeTh@0700 [facility] Last Admin: 08/31/16 06:56 Dose: 75 mcg Non-Formulary Medication (Magnesium [Magnesium]) 200 mg PO DAILY [facility] Nystatin (Mycostatin Cream -) 1 applic TP BID [facility] Last Admin: 08/31/16 09:38 Dose: 1 applic Polyethylene Glycol (Miralax (For Daily Use) -) 17 gm PO DAILY [facility] Last Admin: 08/31/16 12:30 Dose: 17 gm Pregabalin (Lyrica -) 50 mg PO DAILY [facility] Last Admin: 08/31/16 09:38 Dose: 50 mg Ranitidine HCl (Zantac -) 150 mg PO BID [facility] Last Admin: 08/31/16 09:39 Dose: 150 mg Sodium Chloride ([place] Nasal [place] -) 2 spray NS Q4H PRN PRN Reason: NASAL CONGESTION Tamsulosin HCl (Flomax -) 0.4 mg PO DAILY@0830 [facility] Last Admin: 08/31/16 09:37 Dose: 0.4 mg - Objective Vital Signs: Vital Signs Temperature 97.6 F 08/31/16 18:00 Pulse Rate 80 08/31/16 18:00 Respiratory Rate 18 08/31/16 18:00 Blood Pressure 125/79 08/31/16 18:00 O2 Sat by Pulse Oximetry (%) 100 08/31/16 09:00 Constitutional: Yes: No Distress, Calm Eyes: Yes: Conjunctiva Clear HENT: Yes: Atraumatic Neck: Yes: Supple Cardiovascular: Yes: Regular Rate and Rhythm Respiratory: Yes: Diminished Gastrointestinal: Yes: Soft. No: Distention, Tenderness Genitourinary: No: Hematuria Musculoskeletal: No: Joint Stiffness, Joint Swelling Extremities: No: Cold, Cool Edema: No Peripheral Pulses WNL: Yes Integumentary: No: Rash, Venous Stasis Changes Neurological: Yes: WNL, Alert, Oriented ...Motor Strength: WNL Psychiatric: Yes: WNL, Alert, Oriented. No: Agitated Labs: CBC, BMP 08/30/16 05:45 08/31/16 06:50 INR, PTT INR 1.36 (0.82-1.09) H 08/29/16 02:21 - ....Imaging Other: Report Reviewed Assessment/Plan 86 year old with a significant PMH of CAD, PVD, diabetes, hypertension, CHF, CABG s/p 3 stents and defibrillator, enlarged prostate, kidney stones, and UTI presents to ED with dry cough, shortness of breath, difficulty urinating, and swelling to lower legs bilaterally. Bronchitis vs PNA, CHF fluid overload, COPD exac; UTI & BPH difficulty urination; general weakness unsteady gait admitted to monitored unit cardiology, and pulmonary f/u IV lasix; nebs prn IV ATB eval; vascular sx f/u fall decubs DVT falls PFX PT rehab and case management manager eval prognosis guarded d/w pt and staff
[2016-08-31] MEDS: DUTASTERIDE 0.5 MG CAP (FP) PO SCH (23:16)
[2016-09-01] MEDS: INSULIN SLIDING SCALE (NOVOLOG) 1 VIAL SQ SCH ×4 (06:25→21:19)
[2016-09-01] MEDS: FUROSEMIDE 40 MG/4 ML INJECTABLE VIAL IVPUSH SCH ×2 (06:26→14:00)
[2016-09-01] MEDS: LEVOTHYROXINE NA 75 MCG TABLET (FP) PO SCH (06:27)
[2016-09-01 06:50] LABS: BASOPHIL 1.1 % (0-2.0); EOSINOPHIL 4.8 % (0-4.5); MCH 34.7 pg (25.7-33.7); MCHC 33.2 g/dl (32.0-35.9); MEAN CELL VOLUME 104.4 fl (80-96); MEAN PLT VOLUME 9.7 fl (7.5-11.1); NEUTROPHILS 66.8 % (42.8-82.8); PLATELET COUNT 116 K/MM3 (134-434); RDW 16.5 % (11.9-15.9); WHITE BLOOD COUNT 4.7 K/mm3 (4.0-10.0)
[2016-09-01 07:23] LABS: ALBUMIN 2.7 g/dl (3.4-5.0); CALCIUM 8.8 mg/dL (8.5-10.1); CREATININE 1.9 mg/dL (0.7-1.3)
[2016-09-01 07:25] LABS: BILIRUBIN,TOTAL 0.5 mg/dL (0.2-1.0); TOT PROT 6.7 g/dl (6.4-8.2)
[2016-09-01] MEDS: PREGABALIN 50 MG CAPSULE PO SCH (09:29)
[2016-09-01] MEDS: ASPIRIN 81 MG CHEWABLE TABLETS PO SCH (09:29)
[2016-09-01] MEDS: CLOPIDOGREL BISULFATE 75 MG TABLET (FP) PO SCH (09:29)
[2016-09-01] MEDS: LEVOFLOXACIN 250 MG IVPB 50 ML IVPB SCH (09:29)
[2016-09-01] MEDS: CARVEDILOL 3.125 MG TABLET (FP) PO SCH ×2 (09:29→21:19)
[2016-09-01] MEDS: FOLIC ACID 1 MG TABLET (FP) PO SCH (09:29)
[2016-09-01] MEDS: RANITIDINE HCL 150 MG TABLET (FP) PO SCH ×2 (09:29→21:19)
[2016-09-01] MEDS: BACITRACIN 30 GM TUBE TOPICAL OINTMENT TP SCH (09:29)
[2016-09-01] MEDS: ASCORBIC ACID 500 MG TABLET (FP) PO SCH (09:29)
[2016-09-01] MEDS: TAMSULOSIN HCL 0.4 MG CAP.ER.24H (FP) PO SCH (09:29)
[2016-09-01] MEDS: DOCUSATE SODIUM 100 MG CAPSULE (FP) PO SCH (09:29)
[2016-09-01] MEDS: NYSTATIN 100,000 UNIT/GM TOPICAL CREAM 15 GM TUBE TP SCH ×2 (09:30→21:19)
[2016-09-01] MEDS: POLYETHYLENE GLYCOL 3350 119 GM BTL PO SCH (09:30)
--- NOTE | 2016-09-01 10:27 | PN ---
Progress Note, Physician History of Present Illness: pulmonary alert,nad,-sob,-cp - Current Medication List Current Medications: Active Medications Acetaminophen (Tylenol -) 650 mg PO Q6H PRN PRN Reason: FEVER OR PAIN Last Admin: 08/30/16 23:10 Dose: 650 mg Ascorbic Acid (Vitamin C -) 500 mg PO DAILY [facility] Last Admin: 09/01/16 09:29 Dose: 500 mg Aspirin (Asa -) 81 mg PO DAILY [facility] Last Admin: 09/01/16 09:29 Dose: 81 mg Bacitracin (Bacitracin -) 1 applic TP DAILY [facility] Last Admin: 09/01/16 09:29 Dose: 1 appful Carvedilol (Coreg -) 3.125 mg PO BID [facility] Last Admin: 09/01/16 09:29 Dose: 3.125 mg Clopidogrel Bisulfate (Plavix -) 75 mg PO DAILY [facility] Last Admin: 09/01/16 09:29 Dose: 75 mg Docusate Sodium (Colace -) 100 mg PO DAILY [facility] Last Admin: 09/01/16 09:29 Dose: 100 mg Dutasteride (Avodart -) 0.5 mg PO HS [facility] Last Admin: 08/31/16 23:16 Dose: 0.5 mg Folic Acid (Folic Acid -) 1 mg PO DAILY [facility] Last Admin: 09/01/16 09:29 Dose: 1 mg Furosemide (Lasix Injection -) 40 mg IVPUSH BID@0600,1400 [facility] Last Admin: 09/01/16 06:26 Dose: 40 mg Guaifenesin (Robitussin Dm -) 10 ml PO Q6H PRN PRN Reason: COUGH Last Admin: 08/30/16 23:11 Dose: 10 ml Levofloxacin (Levaquin 250 Mg Premixed Ivpb -) 50 mls @ 50 mls/hr IVPB DAILY [facility] Last Admin: 09/01/16 09:29 Dose: 50 mls/hr Insulin Aspart (Novolog Vial Sliding Scale -) 0 vial SQ ACHS [facility] PRN Reason: Protocol Last Admin: 09/01/16 06:25 Dose: Not Given Levothyroxine Sodium (Synthroid -) 50 mcg PO SuFrSa@0700 [facility] Levothyroxine Sodium (Synthroid -) 75 mcg PO MoTuWeTh@0700 [facility] Last Admin: 09/01/16 06:27 Dose: 75 mcg Non-Formulary Medication (Magnesium [Magnesium]) 200 mg PO DAILY [facility] Nystatin (Mycostatin Cream -) 1 applic TP BID [facility] Last Admin: 09/01/16 09:30 Dose: 1 applic Polyethylene Glycol (Miralax (For Daily Use) -) 17 gm PO DAILY [facility] Last Admin: 09/01/16 09:30 Dose: 17 gm Pregabalin (Lyrica -) 50 mg PO DAILY [facility] Last Admin: 09/01/16 09:29 Dose: 50 mg Ranitidine HCl (Zantac -) 150 mg PO BID [facility] Last Admin: 09/01/16 09:29 Dose: 150 mg Sodium Chloride ([place] Nasal [place] -) 2 spray NS Q4H PRN PRN Reason: NASAL CONGESTION Tamsulosin HCl (Flomax -) 0.4 mg PO DAILY@0830 [facility] Last Admin: 09/01/16 09:29 Dose: 0.4 mg - Objective Vital Signs: Vital Signs Temperature 97.8 F 09/01/16 06:01 Pulse Rate 71 09/01/16 06:01 Respiratory Rate 18 09/01/16 06:01 Blood Pressure 103/58 09/01/16 06:01 O2 Sat by Pulse Oximetry (%) 100 08/31/16 21:00 Constitutional: Yes: Well Nourished, Calm Eyes: Yes: WNL HENT: Yes: WNL Neck: Yes: Supple Cardiovascular: Yes: Regular Rate and Rhythm, S1, S2 Respiratory: Yes: Diminished Extremities: Yes: WNL Edema: No Labs: CBC, BMP 09/01/16 05:35 09/01/16 05:35 INR, PTT INR 1.36 (0.82-1.09) H 08/29/16 02:21 Assessment/Plan Problem List - Problems (1) Acute on chronic systolic (congestive) heart failure Code(s): I50.23 - ACUTE ON CHRONIC SYSTOLIC (CONGESTIVE) HEART FAILURE (2) Pleural effusion Code(s): J90 - PLEURAL EFFUSION, NOT ELSEWHERE CLASSIFIED (3) CKD (chronic kidney disease) Code(s): N18.9 - CHRONIC KIDNEY DISEASE, UNSPECIFIED (4) ASHD (arteriosclerotic heart disease) Code(s): I25.10 - ATHSCL HEART DISEASE OF [place] CORONARY ARTERY W/O ANG PCTRS (5) Diabetes mellitus Code(s): E11.9 - TYPE 2 DIABETES MELLITUS WITHOUT COMPLICATIONS Qualifiers: Diabetes mellitus type: type 2 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) (6) HTN (hypertension) Code(s): I10 - ESSENTIAL (PRIMARY) HYPERTENSION Qualifiers: Hypertension type: essential hypertension Qualified Code(s): I10 - Essential (primary) hypertension (7) Hypercholesterolemia Code(s): E78.0 - PURE HYPERCHOLESTEROLEMIA * DO NOT USE * Assessment/Plan Acute on Chronic LV Systolic Heart Failure clinically improving Pleural Effusions from above CAD s/p CABG HTN DM Hypercholesterolemia r/o UTI - cont IV lasix - monitor urine output, creatinine - daily weights, I/Os - inhaled bronchodilators - O2 to keep SpO2 >90% - DVT prophylaxis - chest x-ray DR NAVARRO
--- NOTE | 2016-09-01 12:03 | PN ---
Progress Note, Physician History of Present Illness: Dyspnea improved, denies chest pain. - Current Medication List Current Medications: Active Medications Acetaminophen (Tylenol -) 650 mg PO Q6H PRN PRN Reason: FEVER OR PAIN Last Admin: 08/30/16 23:10 Dose: 650 mg Ascorbic Acid (Vitamin C -) 500 mg PO DAILY [facility] Last Admin: 09/01/16 09:29 Dose: 500 mg Aspirin (Asa -) 81 mg PO DAILY [facility] Last Admin: 09/01/16 09:29 Dose: 81 mg Bacitracin (Bacitracin -) 1 applic TP DAILY [facility] Last Admin: 09/01/16 09:29 Dose: 1 appful Carvedilol (Coreg -) 3.125 mg PO BID [facility] Last Admin: 09/01/16 09:29 Dose: 3.125 mg Clopidogrel Bisulfate (Plavix -) 75 mg PO DAILY [facility] Last Admin: 09/01/16 09:29 Dose: 75 mg Docusate Sodium (Colace -) 100 mg PO DAILY [facility] Last Admin: 09/01/16 09:29 Dose: 100 mg Dutasteride (Avodart -) 0.5 mg PO HS [facility] Last Admin: 08/31/16 23:16 Dose: 0.5 mg Folic Acid (Folic Acid -) 1 mg PO DAILY [facility] Last Admin: 09/01/16 09:29 Dose: 1 mg Furosemide (Lasix Injection -) 40 mg IVPUSH BID@0600,1400 [facility] Last Admin: 09/01/16 06:26 Dose: 40 mg Guaifenesin (Robitussin Dm -) 10 ml PO Q6H PRN PRN Reason: COUGH Last Admin: 08/30/16 23:11 Dose: 10 ml Levofloxacin (Levaquin 250 Mg Premixed Ivpb -) 50 mls @ 50 mls/hr IVPB DAILY [facility] Last Admin: 09/01/16 09:29 Dose: 50 mls/hr Insulin Aspart (Novolog Vial Sliding Scale -) 0 vial SQ ACHS [facility] PRN Reason: Protocol Last Admin: 09/01/16 06:25 Dose: Not Given Levothyroxine Sodium (Synthroid -) 50 mcg PO SuFrSa@0700 [facility] Levothyroxine Sodium (Synthroid -) 75 mcg PO MoTuWeTh@0700 [facility] Last Admin: 09/01/16 06:27 Dose: 75 mcg Non-Formulary Medication (Magnesium [Magnesium]) 200 mg PO DAILY [facility] Nystatin (Mycostatin Cream -) 1 applic TP BID [facility] Last Admin: 09/01/16 09:30 Dose: 1 applic Polyethylene Glycol (Miralax (For Daily Use) -) 17 gm PO DAILY [facility] Last Admin: 09/01/16 09:30 Dose: 17 gm Pregabalin (Lyrica -) 50 mg PO DAILY [facility] Last Admin: 09/01/16 09:29 Dose: 50 mg Ranitidine HCl (Zantac -) 150 mg PO BID [facility] Last Admin: 09/01/16 09:29 Dose: 150 mg Sodium Chloride ([place] Nasal [place] -) 2 spray NS Q4H PRN PRN Reason: NASAL CONGESTION Tamsulosin HCl (Flomax -) 0.4 mg PO DAILY@0830 [facility] Last Admin: 09/01/16 09:29 Dose: 0.4 mg - Objective Vital Signs: Vital Signs Temperature 97.8 F 09/01/16 06:01 Pulse Rate 71 09/01/16 06:01 Respiratory Rate 18 09/01/16 06:01 Blood Pressure 103/58 09/01/16 06:01 O2 Sat by Pulse Oximetry (%) 100 08/31/16 21:00 Constitutional: Yes: No Distress, Calm Neck: Yes: Supple Cardiovascular: Yes: Regular Rate and Rhythm Respiratory: Yes: Regular, Diminished Gastrointestinal: Yes: Normal Bowel Sounds, Soft Edema: No Labs: CBC, BMP 09/01/16 05:35 09/01/16 05:35 INR, PTT INR 1.36 (0.82-1.09) H 08/29/16 02:21 - ....Imaging EKG: Report Reviewed (Tele: A-V paced) Problem List - Problems (1) Acute on chronic systolic (congestive) heart failure Code(s): I50.23 - ACUTE ON CHRONIC SYSTOLIC (CONGESTIVE) HEART FAILURE (2) CKD (chronic kidney disease) Code(s): N18.9 - CHRONIC KIDNEY DISEASE, UNSPECIFIED Qualifiers: Chronic kidney disease stage: stage 3 (moderate) Qualified Code(s): N18.3 - Chronic kidney disease, stage 3 (moderate) (3) ASHD (arteriosclerotic heart disease) Code(s): I25.10 - ATHSCL HEART DISEASE OF [place] CORONARY ARTERY W/O ANG PCTRS (4) Carotid artery disease Code(s): I77.9 - DISORDER OF ARTERIES AND ARTERIOLES, UNSPECIFIED Qualifiers: Laterality: unspecified laterality Qualified Code(s): I77.9 - Disorder of arteries and arterioles, unspecified (5) Diabetes mellitus Code(s): E11.9 - TYPE 2 DIABETES MELLITUS WITHOUT COMPLICATIONS Qualifiers: Diabetes mellitus type: type 2 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) (6) HTN (hypertension) Code(s): I10 - ESSENTIAL (PRIMARY) HYPERTENSION Qualifiers: Hypertension type: essential hypertension Qualified Code(s): I10 - Essential (primary) hypertension (7) Hx of CABG Code(s): Z95.1 - PRESENCE OF AORTOCORONARY BYPASS GRAFT (8) Hypothyroidism Code(s): E03.9 - HYPOTHYROIDISM, UNSPECIFIED Qualifiers: Hypothyroidism type: unspecified Qualified Code(s): E03.9 - Hypothyroidism, unspecified (9) ICD (implantable cardioverter-defibrillator) in place Code(s): Z95.810 - PRESENCE OF AUTOMATIC (IMPLANTABLE) CARDIAC DEFIBRILLATOR (10) Peripheral arterial disease Code(s): I73.9 - PERIPHERAL VASCULAR DISEASE, UNSPECIFIED (11) Systolic dysfunction with acute on chronic heart failure Code(s): I50.23 - ACUTE ON CHRONIC SYSTOLIC (CONGESTIVE) HEART FAILURE Assessment/Plan 07/21/2016 Echo: Moderate dilated with mild-mod decreased LV fxn, pacer RV, mild LAE, mod MR, mild TR 1. Acute on chronic LV systolic failure with pleural effusions referable to dietary indiscretion resolving 2. CAD post CABG, angina pectoris 3. HTN 4. NIDDM 5. Hypercholesterolemia 6. 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 Carotid stenosis 8. PAD post [employer] and amputation (TMA) PLAN: 1. Resume oral diuretics in AM with close monitoring of renal function and electrolytes 2. Continue ASA 81 qd and Plavix 75 qd 3. Continue Carvedilol 3.125 bid, start losartan 25 qd as renal fxn stabilizing , add statin and check lipid panel 4. Addressed importance of dietary and medication compliance
--- NOTE | 2016-09-01 13:31 | PN ---
Progress Note, Physician Chief Complaint: feeling better no SOB; in bed did not want to get OOB - Current Medication List Current Medications: Active Medications Acetaminophen (Tylenol -) 650 mg PO Q6H PRN PRN Reason: FEVER OR PAIN Last Admin: 08/30/16 23:10 Dose: 650 mg Ascorbic Acid (Vitamin C -) 500 mg PO DAILY [facility] Last Admin: 09/01/16 09:29 Dose: 500 mg Aspirin (Asa -) 81 mg PO DAILY [facility] Last Admin: 09/01/16 09:29 Dose: 81 mg Bacitracin (Bacitracin -) 1 applic TP DAILY [facility] Last Admin: 09/01/16 09:29 Dose: 1 appful Carvedilol (Coreg -) 3.125 mg PO BID [facility] Last Admin: 09/01/16 09:29 Dose: 3.125 mg Clopidogrel Bisulfate (Plavix -) 75 mg PO DAILY [facility] Last Admin: 09/01/16 09:29 Dose: 75 mg Docusate Sodium (Colace -) 100 mg PO DAILY [facility] Last Admin: 09/01/16 09:29 Dose: 100 mg Dutasteride (Avodart -) 0.5 mg PO HS [facility] Last Admin: 08/31/16 23:16 Dose: 0.5 mg Folic Acid (Folic Acid -) 1 mg PO DAILY [facility] Last Admin: 09/01/16 09:29 Dose: 1 mg Furosemide (Lasix Injection -) 40 mg IVPUSH BID@0600,1400 [facility] Stop: 09/01/16 23:59 Last Admin: 09/01/16 06:26 Dose: 40 mg Furosemide (Lasix -) 20 mg PO BID@0600,1400 [facility] Guaifenesin (Robitussin Dm -) 10 ml PO Q6H PRN PRN Reason: COUGH Last Admin: 08/30/16 23:11 Dose: 10 ml Levofloxacin (Levaquin 250 Mg Premixed Ivpb -) 50 mls @ 50 mls/hr IVPB DAILY [facility] Last Admin: 09/01/16 09:29 Dose: 50 mls/hr Insulin Aspart (Novolog Vial Sliding Scale -) 0 vial SQ ACHS [facility] PRN Reason: Protocol Last Admin: 09/01/16 12:09 Dose: 4 units Levothyroxine Sodium (Synthroid -) 50 mcg PO SuFrSa@0700 [facility] Levothyroxine Sodium (Synthroid -) 75 mcg PO MoTuWeTh@0700 [facility] Last Admin: 09/01/16 06:27 Dose: 75 mcg Losartan Potassium (Cozaar -) 25 mg PO DAILY [facility] Non-Formulary Medication (Magnesium [Magnesium]) 200 mg PO DAILY [facility] Nystatin (Mycostatin Cream -) 1 applic TP BID [facility] Last Admin: 09/01/16 09:30 Dose: 1 applic Polyethylene Glycol (Miralax (For Daily Use) -) 17 gm PO DAILY [facility] Last Admin: 09/01/16 09:30 Dose: 17 gm Pregabalin (Lyrica -) 50 mg PO DAILY [facility] Last Admin: 09/01/16 09:29 Dose: 50 mg Ranitidine HCl (Zantac -) 150 mg PO BID [facility] Last Admin: 09/01/16 09:29 Dose: 150 mg Rosuvastatin Calcium (Crestor -) 10 mg PO [facility] Sodium Chloride ([place] Nasal [place] -) 2 spray NS Q4H PRN PRN Reason: NASAL CONGESTION Tamsulosin HCl (Flomax -) 0.4 mg PO DAILY@0830 [facility] Last Admin: 09/01/16 09:29 Dose: 0.4 mg - Objective Vital Signs: Vital Signs Temperature 97.8 F 09/01/16 06:01 Pulse Rate 71 09/01/16 06:01 Respiratory Rate 18 09/01/16 06:01 Blood Pressure 103/58 09/01/16 06:01 O2 Sat by Pulse Oximetry (%) 100 08/31/16 21:00 Constitutional: Yes: No Distress Eyes: Yes: Conjunctiva Clear HENT: Yes: Atraumatic Neck: Yes: Supple Cardiovascular: Yes: Regular Rate and Rhythm Respiratory: Yes: CTA Bilaterally Gastrointestinal: Yes: Soft. No: Distention, Tenderness Musculoskeletal: No: Joint Stiffness, Joint Swelling Extremities: No: Cold, Cool Edema: No Peripheral Pulses WNL: Yes Integumentary: No: Pressure Ulcer, Venous Stasis Changes Neurological: Yes: WNL, Alert, Oriented ...Motor Strength: WNL Psychiatric: Yes: WNL, Alert, Oriented. No: Agitated Labs: CBC, BMP 09/01/16 05:35 09/01/16 05:35 INR, PTT INR 1.36 (0.82-1.09) H 08/29/16 02:21 - ....Imaging Other: Report Reviewed Assessment/Plan 86 year old with a significant PMH of CAD, PVD, diabetes, hypertension, CHF, CABG s/p 3 stents and defibrillator, enlarged prostate, kidney stones, and UTI presents to ED with dry cough, shortness of breath, difficulty urinating, and swelling to lower legs bilaterally. 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
[2016-09-01] MEDS: FUROSEMIDE 20 MG TABLET (FP) PO SCH (14:07)
[2016-09-01] MEDS: LOSARTAN POTASSIUM 25 MG TABLET PO SCH (14:07)
[2016-09-01] MEDS: DUTASTERIDE 0.5 MG CAP (FP) PO SCH (21:18)
[2016-09-01] MEDS ORDERED: ROSUVASTATIN CA 10 MG TABLET (FP) PO SCH (22:00)
[2016-09-02] MEDS ORDERED: LEVOFLOXACIN 250 MG TABLET (FP) PO SCH (06:00)
[2016-09-02] MEDS: INSULIN SLIDING SCALE (NOVOLOG) 1 VIAL SQ SCH ×2 (06:30→11:58)
[2016-09-02] MEDS: FUROSEMIDE 20 MG TABLET (FP) PO SCH ×2 (06:45→13:57)
[2016-09-02] MEDS ORDERED: LEVOTHYROXINE NA 50 MCG TABLET (FP) PO SCH (07:00)
[2016-09-02 08:37] LABS: CALCIUM 8.4 mg/dL (8.5-10.1); CREATININE 1.7 mg/dL (0.7-1.3)
[2016-09-02] MEDS: TAMSULOSIN HCL 0.4 MG CAP.ER.24H (FP) PO SCH (09:05)
[2016-09-02] MEDS ORDERED: PT OWN MED DRAWER 7, Y5N ONE (09:36)
[2016-09-02] MEDS: CLOPIDOGREL BISULFATE 75 MG TABLET (FP) PO SCH (09:46)
[2016-09-02] MEDS: ASCORBIC ACID 500 MG TABLET (FP) PO SCH (09:46)
[2016-09-02] MEDS: FOLIC ACID 1 MG TABLET (FP) PO SCH (09:46)
[2016-09-02] MEDS: PREGABALIN 50 MG CAPSULE PO SCH (09:48)
[2016-09-02] MEDS: NYSTATIN 100,000 UNIT/GM TOPICAL CREAM 15 GM TUBE TP SCH (09:48)
[2016-09-02] MEDS: CARVEDILOL 3.125 MG TABLET (FP) PO SCH (09:48)
[2016-09-02] MEDS: DOCUSATE SODIUM 100 MG CAPSULE (FP) PO SCH (09:48)
[2016-09-02] MEDS: ASPIRIN 81 MG CHEWABLE TABLETS PO SCH (09:48)
[2016-09-02] MEDS: BACITRACIN 30 GM TUBE TOPICAL OINTMENT TP SCH (09:48)
[2016-09-02] MEDS: LOSARTAN POTASSIUM 25 MG TABLET PO SCH (09:48)
[2016-09-02] MEDS: RANITIDINE HCL 150 MG TABLET (FP) PO SCH (09:48)
[2016-09-02] MEDS: POLYETHYLENE GLYCOL 3350 119 GM BTL PO SCH (09:49)
[2016-09-02] MEDS ORDERED: MAGNESIUM OXIDE 400 MG TABLET (FP) PO SCH (10:00)
--- NOTE | 2016-09-02 10:52 | PN ---
Progress Note (short form) - Note Progress Note: PULMONARY LYING FLAT IN BED APPEARS STABLE VSS/AFEBRILE ANICTERIC DIMINISHED BREATH SOUNDS B/L PACED RHYTM BS+ LESS EDEMA LOWER EXT LABS/MEDS/NOTES/IMAGING/MICRO REVIEWED Acute on Chronic LV Systolic Heart Failure Pleural Effusions CAD s/p CABG HTN DM Hypercholesterolemia r/o UTI - diuretics - bronchodilators - O2 to keep SpO2 >90% - VTE prophylaxis - agree with discharge plan Andrews PATIÑO MD
[2016-09-02 11:10] VITALS: BP 112/45; PULSE 72; TEMP 98.2
--- NOTE | 2016-09-02 12:52 | DS ---
Physical Examination Vital Signs: Vital Signs Temperature 98.2 F 09/02/16 10:00 Pulse Rate 72 09/02/16 10:00 Respiratory Rate 18 09/02/16 10:00 Blood Pressure 112/45 09/02/16 10:00 O2 Sat by Pulse Oximetry (%) 96 09/02/16 09:00 Findings/Remarks: feels better no SOB no cough no dysuria; labs stable; wants to go home; absolutely refused SNF/NH PT rehab I d/w pt and pt's Constitutional: Yes: No Distress, Calm Eyes: Yes: Conjunctiva Clear HENT: Yes: Atraumatic Neck: Yes: Supple Cardiovascular: Yes: Regular Rate and Rhythm Respiratory: Yes: CTA Bilaterally Gastrointestinal: Yes: Soft. No: Distention, Tenderness Musculoskeletal: No: Joint Stiffness, Joint Swelling Extremities: No: Cold, Cool Edema: No Peripheral Pulses WNL: Yes Integumentary: No: Rash, Venous Stasis Changes Neurological: Yes: WNL, Alert, Oriented ...Motor Strength: WNL Psychiatric: Yes: WNL, Alert, Oriented. No: Agitated, Suicidal Ideation Labs: CBC, BMP 09/01/16 05:35 09/02/16 06:10 Discharge Summary Reason For Visit: CONGESTIVE HEART FAILURE/ UTI PLEURAL EFFUSION Current Active Problems Acute on chronic systolic (congestive) heart failure (Acute) CHF exacerbation (Acute) CKD (chronic kidney disease) (Acute) Pleural effusion (Acute) Urinary tract infection (Acute) Procedures: Principal: admitted with URI/UTI and SOB, fluid overload Other Procedures: IV antibiotics; IV lasix and nebs;. cardiology and and pulmonary evals Hospital Course: improved with above; pt refused SNF despite having difficulty walking; will go home with VNS and home PT f/u as advised; Condition: Improved - Instructions Diet, Activity, Other Instructions: f/u PCP and check labs CBC CMP in 1-2 weeks home VNS and PT rehab falls PFX scripts done d/w pt and , and all the above RTER if worse or recurrent has home O2 NC check weight home call PCP or cardiology if > 2 lbs difference also f/u with dr Cortez Referrals: Fransisco Garcia MD [Staff Physician] - Latanya Kirk MD [Staff Physician] - Andres Farfan MD, MD [Staff Physician] - Darian Cortez MD., [Staff Physician] - Disposition: VNS/HOME HEALTH CARE - Home Medications Comprehensive Discharge Medication List: Ambulatory Orders Ascorbate Calcium [Vitamin C] 500 mg PO DAILY 01/20/14 Aspirin [ASA -] 81 mg PO DAILY 01/20/14 Carvedilol 3.125 mg PO BID 01/20/14 Clopidogrel Bisulfate [Plavix -] 75 mg PO DAILY 01/20/14 Dutasteride [Avodart] 0.5 mg PO HS 01/20/14 Folic Acid - 1 mg PO DAILY 01/20/14 Levothyroxine [Synthroid -] 50 mcg PO SUFRSA 01/20/14 Pregabalin [Lyrica -] 50 mg PO DAILY 01/20/14 Ranitidine HCl [Zantac] 150 mg PO BID 01/20/14 Tamsulosin HCl [Flomax -] 0.4 mg PO DAILY 01/20/14 Magnesium 200 mg PO DAILY 10/25/15 Levothyroxine [Synthroid -] 75 mcg PO MOTUWETH 07/21/16 Acetaminophen [Tylenol .Regular Strength -] 650 mg PO Q6H PRN #0 tablet Sodium Chloride Nasal [place] [[place] Nasal [place] -] 2 spray NS Q4H PRN #0 bottle 07/27/16 Bacitracin - [Bacitracin Topical Ointment -] 1 applic TP DAILY tube 08/07/16 Docusate Sodium [Colace -] 100 mg PO DAILY capsule 08/07/16 Guaifenesin Dm [Robitussin Dm -] 10 ml PO Q6H PRN #0 cup 08/07/16 Nystatin Cream [Mycostatin Cream -] 1 applic TP BID applic 08/07/16 Polyethylene Glycol 3350 [Miralax 119 gm Btl -] 17 gm PO DAILY bottle 08/07/16 Furosemide [Lasix -] 20 mg PO BID@0600,1400 #180 tablet 09/02/16 Insulin Sliding Scale [Novolog Vial Sliding Scale -] 0 vial SQ ACHS units 09/02 Levofloxacin [Levaquin -] 250 mg PO DAILY@0600 #7 tablet 09/02/16 Losartan Potassium [Cozaar -] 25 mg PO DAILY #90 tablet 09/02/16 Rosuvastatin [Crestor -] 10 mg PO HS #90 tablet 09/02/16
== END 2016-09-02 17:38 | disposition home health service (06) | DRG 291 ==
LOC: JER 01:34 → SUPCPDRO 01:34 → JERBED 03:39 → UNDOADMIN 03:54 → J4W 12:24
PROVIDERS: ADMIT Specialist; ATTEND Specialist
DX: I13.0 Hypertensive heart and chronic kidney disease with heart failure and stage 1 through stage 4 chronic kidney disease, or unspecified chronic kidney disease (principal); I50.23 Acute on chronic systolic (congestive) heart failure; N39.0 Urinary tract infection, site not specified; J44.1 Chronic obstructive pulmonary disease with (acute) exacerbation; I25.10 Atherosclerotic heart disease of native coronary artery without angina pectoris; Z95.1 Presence of aortocoronary bypass graft; Z95.5 Presence of coronary angioplasty implant and graft; E11.40 Type 2 diabetes mellitus with diabetic neuropathy, unspecified; N40.0 Benign prostatic hyperplasia without lower urinary tract symptoms; I73.9 Peripheral vascular disease, unspecified; Z89.432 Acquired absence of left foot; Z95.810 Presence of automatic (implantable) cardiac defibrillator; E03.9 Hypothyroidism, unspecified; E78.00 Pure hypercholesterolemia, unspecified; Z87.891 Personal history of nicotine dependence; N40.1 Benign prostatic hyperplasia with lower urinary tract symptoms; L98.8 Other specified disorders of the skin and subcutaneous tissue; N18.3 Chronic kidney disease, stage 3 (moderate)
CPT/HCPCS: 36415; 71010-TC; 80048; 80053; 80061; 81003; 81015; 82550; 83605; 83721; 83880; 84443; 84484; 85025; 85027; 85610; 87040; 87086; 87254; 87804; 93005; 93010; 97116-GP; 97161-GP; 99284-25

== ENCOUNTER 2017-06-09 11:39 | Inpatient (IN) | payer OTHER, MEDICARE ==
--- NOTE | 2017-06-09 13:44 | PDOC ---
History of Present Illness - General Chief Complaint: Wound Stated Complaint: PAIN Time Seen by Provider: 06/09/17 12:29 History Source: Patient, Spouse, Old Records Exam Limitations: No Limitations - History of Present Illness Initial Comments: 06/09/17 13:39 CHIEF COMPLAINT: Swollen, red right second toe for a few days HISTORY OF PRESENT ILLNESS: 87-year-old man with a history of peripheral arterial disease presents with swollen, red right second toe. He thinks he may have vomited a couple of days ago. He then noted redness and swelling and it is been getting progressively worse. He denies any fever. He denies any discharge from the toe. It now has a big red blood blister on it. Of note, he has a history of peripheral arterial disease with a transmetatarsal habitation of the left foot in the past. The surgery was done here by Dr. Loyd Small. REVIEW OF SYSTEMS: GENERAL/CONSTITUTIONAL: No fever or chills. No weakness. No weight change. HEAD, EYES, EARS, NOSE AND THROAT: No change in vision. Positive history of right corneal replacement. No ear pain or discharge. No sore throat. CARDIOVASCULAR: No chest pain or shortness of breath. RESPIRATORY: No cough, wheezing, or hemoptysis. GASTROINTESTINAL: No nausea, vomiting, diarrhea or constipation. No rectal bleeding. GENITOURINARY: No dysuria, frequency, or change in urination. MUSCULOSKELETAL: No joint or muscle swelling or pain. No neck or back pain. SKIN AND BREASTS: No rash or easy bruising. Positive right second toe redness and swelling, see history of present illness. NEUROLOGIC: No headache, vertigo, loss of consciousness, or loss of sensation. PSYCHIATRIC: No depression or anxiety. ENDOCRINE: No increased thirst. No abnormal weight change. HEMATOLOGIC/LYMPHATIC: No anemia, easy bleeding, or history of blood clots. ALLERGIC/IMMUNOLOGIC: No hives or skin allergy. No latex allergy. Past History - Past Medical History Allergies/Adverse Reactions: Allergies Allergy/AdvReac Type Severity Reaction Status Date / Time No Known Allergies Allergy Verified 08/29/16 01:56 Home Medications: Ambulatory Orders Ascorbate Calcium [Vitamin C] 500 mg PO DAILY 01/20/14 Aspirin [ASA -] 81 mg PO DAILY 01/20/14 Carvedilol 3.125 mg PO BID 01/20/14 Clopidogrel Bisulfate [Plavix -] 75 mg PO DAILY 01/20/14 Folic Acid - 1 mg PO DAILY 01/20/14 Pregabalin [Lyrica -] 50 mg PO HS 01/20/14 Ranitidine HCl [Zantac] 150 mg PO HS 01/20/14 Tamsulosin HCl [Flomax -] 0.4 mg PO HS 01/20/14 Magnesium 250 mg PO DAILY 10/25/15 Levothyroxine [Synthroid -] 75 mcg PO MOTUWETH 07/21/16 Losartan Potassium [Cozaar -] 25 mg PO DAILY #90 tablet 09/02/16 Ascorbate Calcium [Vitamin C] 500 mg PO DAILY 06/09/17 Ergocalciferol (Vitamin D2) [Vitamin D2] 2,000 unit PO DAILY 06/09/17 Finasteride 0.05 mg PO DAILY 06/09/17 Furosemide [Lasix -] 20 mg PO DAILY 06/09/17 Insulin Glargine,Hum.rec.anlog [Lantus (nf)] 10 units SQ HS 06/09/17 Multivit-Min/FA/Lycopen/Lutein [Centrum Silver Tablet] 1 tab PO DAILY 06/09/17 Pregabalin [Lyrica] 50 mg PO HS 06/09/17 Rosuvastatin Calcium 10 mg PO HS 06/09/17 Anemia: Yes Asthma: No Cancer: No Cardiac Disorders: Yes (CAD, PVD, CABG, stents) COPD: No CHF: Yes Diabetes: Yes HTN: Yes Hypercholesterolemia: No Kidney Stones: Yes Thyroid Disease: No - Surgical History Abdominal Surgery: (gallbladder removal 2015) Appendectomy: No Cardiac Surgery: Yes (cabg x 3/defibrillator implanted) Cholecystectomy: Yes Lung Surgery: No Neurologic Surgery: No Orthopedic Surgery: Yes (lt foot amputated) - Immunization History Td Vaccination: No TDAP Vaccination: No Immunization Up to Date: Yes - Suicide/Smoking/Psychosocial Hx Smoking Status: No Smoking History: Former smoker Years of Tobacco Use: 50 Have you smoked in the past 12 months: No Number of Cigarettes Smoked Daily: 0 If you are a former smoker, when did you quit?: 2009 Cigars Per Day: 0 Information on smoking cessation initiated: No Hx Alcohol Use: No Drug/Substance Use Hx: No Substance Use Type: None Hx Substance Use Treatment: No *Physical Exam - Vital Signs Last Vital Signs Temp Pulse Resp BP Pulse Ox 97.1 F L 65 20 119/48 99 06/09/17 11:53 06/09/17 11:53 06/09/17 11:53 06/09/17 11:53 06/09/17 11:53 - Physical Exam Comments: 06/09/17 13:42 GENERAL: The patient is awake, alert, and fully oriented, in no acute distress. HEAD: Normal with no signs of trauma. EYES: Pupils equal, round and reactive to light, extraocular movements intact, sclera anicteric, conjunctiva clear. ENT: Ears normal, nares patent, oropharynx clear without exudates. Moist mucous membranes. NECK: Normal range of motion, supple without lymphadenopathy, JVD, or masses. LUNGS: Breath sounds equal, clear to auscultation bilaterally. No wheezes, and no crackles. HEART: Regular rate and rhythm, normal S1 and S2 without murmur, rub or gallop. ABDOMEN: Soft, nontender, normoactive bowel sounds. No guarding, no rebound. No masses. EXTREMITIES: Normal range of motion, no edema. No clubbing or cyanosis. No cords, erythema, or tenderness. Right foot with second toe erythema with large dorsal blister containing blood-tinged fluid. NEUROLOGICAL: Cranial nerves II through XII grossly intact. Normal speech, normal gait. PSYCH: Normal mood, normal affect. SKIN: Warm, Dry, normal turgor, no rashes or lesions noted other than the right second toe as noted. ED Treatment Course - LABORATORY CBC & Chemistry Diagram: 06/09/17 14:50 06/09/17 15:00 Medical Decision Making - Medical Decision Making 06/09/17 16:57 Patient is an 87-year-old man with a history of severe peripheral arterial disease. 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 He now comes in with a swollen right second toe with bulla formation. The foot is warm without erythema. There is no swelling beyond the second toe. On examination, his femoral and popliteal pulses are palpable and dopplerable. There are no dopplerable pulses in the posterior tibial or dorsalis pedis. I spoke with Dr. Small and he says these pulse deficits are chronic. Dr. Small recommends admission on the medical service and he will see the patient. Podiatry was called, , and he will see the patient. Dr. Barger was paged for admission, call back pending. Labs reviewed: Laboratory Results - last 24 hr 06/09/17 06/09/17 06/09/17 14:50 14:50 15:00 WBC Cancelled Corrected WBC (auto) Cancelled RBC Cancelled Hgb Cancelled Hct Cancelled MCV Cancelled MCH Cancelled MCHC Cancelled RDW Cancelled Plt Count Cancelled MPV Cancelled Neutrophils % Cancelled Lymphocytes % Cancelled Monocytes % Cancelled Eosinophils % Cancelled Basophils % Cancelled PT with INR 12.80 H INR 1.13 Sodium 143 Potassium 5.4 H D Chloride 114 H Carbon Dioxide 22 D Anion Gap 7 L BUN 67 H D Creatinine 1.7 H Creat Clearance w eGFR 38.41 Random Glucose 149 H D Calcium 8.9 Total Bilirubin 0.3 D AST 18 D ALT 27 D Alkaline Phosphatase 113 Total Protein 7.2 Albumin 3.2 L CBC repeated. foot xray and chest xray pending. Antibiotics ordered, although unclear if this swelling of the toe is traumatic or infectious. *DC/Admit/Observation/Transfer Diagnosis at time of Disposition: Diabetic infection of right foot - Discharge Dispostion Condition at time of disposition: Stable - Referrals Referrals: Latanya Kirk MD [Primary Care Provider] - - Patient Instructions - Post Discharge Activity
[2017-06-09 15:42] LABS: ALBUMIN 3.2 g/dl (3.4-5.0); ALK PHOS 113 U/L (45-117); ANION GAP 7 (8-16); BILIRUBIN,TOTAL 0.3 mg/dL (0.2-1.0); CALCIUM 8.9 mg/dL (8.5-10.1); CO2 22 mmol/L (21-32); CREATININE 1.7 mg/dL (0.7-1.3); GLUCOSE,RANDOM 149 mg/dL (74-106); SGOT/AST 18 U/L (15-37); SGPT/ALT 27 U/L (12-78); TOT PROT 7.2 g/dl (6.4-8.2)
[2017-06-09 15:44] LABS: INR 1.13 (0.82-1.09); PROTHROMBIN TIME (PATIENT) 12.8 SEC (9.98-11.88)
[2017-06-09 16:26] LABS: BASOPHIL 0.6 % (0-2.0); EOSINOPHIL 4.2 % (0-4.5); MCH 34.7 pg (25.7-33.7); MCHC 33.8 g/dl (32.0-35.9); MEAN CELL VOLUME 102.6 fl (80-96); MEAN PLT VOLUME 9.7 fl (7.5-11.1); NEUTROPHILS 76.6 % (42.8-82.8); PLATELET COUNT 96 K/MM3 (134-434); RDW 14.1 % (11.9-15.9); WHITE BLOOD COUNT 5.5 K/mm3 (4.0-10.0)
[2017-06-09] MEDS ORDERED: PIPERACILLIN/TAZOB 4.5 GM/100 ML PRE-DOCKED IVPB ONE (17:11)
--- NOTE | 2017-06-09 18:09 | PDOC ---
*Physical Exam - Vital Signs Last Vital Signs Temp Pulse Resp BP Pulse Ox 97.1 F L 137 H 22 128/90 100 06/09/17 11:53 06/09/17 15:45 06/09/17 15:45 06/09/17 15:45 06/09/17 15:45 <Tiffany Cerda - Last Filed: 06/09/17 18:22> - Vital Signs Last Vital Signs Temp Pulse Resp BP Pulse Ox 97.1 F L 137 H 22 128/90 100 06/09/17 11:53 06/09/17 15:45 06/09/17 15:45 06/09/17 15:45 06/09/17 15:45 <Jose Manuel Urena - Last Filed: 06/09/17 19:09> ED Treatment Course - LABORATORY CBC & Chemistry Diagram: 06/09/17 15:30 06/09/17 15:00 - ADDITIONAL ORDERS Additional order review: Laboratory Results 06/09/17 06/09/17 15:00 14:50 PT with INR 12.80 H INR 1.13 Sodium 143 Potassium 5.4 H D Chloride 114 H Carbon Dioxide 22 D Anion Gap 7 L BUN 67 H D Creatinine 1.7 H Creat Clearance w eGFR 38.41 Random Glucose 149 H D Calcium 8.9 Total Bilirubin 0.3 D AST 18 D ALT 27 D Alkaline Phosphatase 113 Total Protein 7.2 Albumin 3.2 L 06/09/17 06/09/17 15:30 14:50 RBC 2.72 L Cancelled MCV 102.6 H Cancelled MCHC 33.8 Cancelled RDW 14.1 D Cancelled MPV 9.7 Cancelled Neutrophils % 76.6 Cancelled Lymphocytes % 9.9 D Cancelled Monocytes % 8.7 Cancelled Eosinophils % 4.2 Cancelled Basophils % 0.6 Cancelled <Tiffany Cerda - Last Filed: 06/09/17 18:22> - LABORATORY CBC & Chemistry Diagram: 06/09/17 15:30 06/09/17 15:00 - ADDITIONAL ORDERS Additional order review: Laboratory Results 06/09/17 06/09/17 15:00 14:50 PT with INR 12.80 H INR 1.13 Sodium 143 Potassium 5.4 H D Chloride 114 H Carbon Dioxide 22 D Anion Gap 7 L BUN 67 H D Creatinine 1.7 H Creat Clearance w eGFR 38.41 Random Glucose 149 H D Calcium 8.9 Total Bilirubin 0.3 D AST 18 D ALT 27 D Alkaline Phosphatase 113 Total Protein 7.2 Albumin 3.2 L 06/09/17 06/09/17 15:30 14:50 RBC 2.72 L Cancelled MCV 102.6 H Cancelled MCHC 33.8 Cancelled RDW 14.1 D Cancelled MPV 9.7 Cancelled Neutrophils % 76.6 Cancelled Lymphocytes % 9.9 D Cancelled Monocytes % 8.7 Cancelled Eosinophils % 4.2 Cancelled Basophils % 0.6 Cancelled <Jose Manuel Urena - Last Filed: 06/09/17 19:09> Medical Decision Making - Medical Decision Making 06/09/17 18:22 5:11pm Phone call placed to Dr. Noonan's answering service. Awaiting call back. 5:14pm Call returned by Dr. Dereck Noonan and case was discussed. <Tiffany Cerda - Last Filed: 06/09/17 18:22> *DC/Admit/Observation/Transfer - Attestations Scribe Attestion: 06/09/17 18:24 Documentation prepared by Tiffany Cerda, acting as medical art therapist for Jose Manuel Urena MD. <Tiffany Cerda - Last Filed: 06/09/17 18:22> - Discharge Dispostion Admit: Yes <Jose Manuel Urena - Last Filed: 06/09/17 19:09> Diagnosis at time of Disposition: Diabetic infection of right foot - Discharge Dispostion Condition at time of disposition: Stable - Referrals Referrals: Latanya Kirk MD [Primary Care Provider] - - Patient Instructions - Post Discharge Activity
[2017-06-09] MEDS ORDERED: PIPERACILLIN/TAZOB 4.5 GM 4.5 GM/100 ML BAG IVPB ONE (18:35)
[2017-06-09] MEDS ORDERED: PREGABALIN 25 MG CAPSULE PO SCH (22:00)
[2017-06-09] MEDS: CARVEDILOL 3.125 MG TABLET (FP) PO SCH (22:38)
[2017-06-09] MEDS: ROSUVASTATIN CA 10 MG TABLET (FP) PO SCH (22:38)
[2017-06-09] MEDS: TAMSULOSIN HCL 0.4 MG CAP.ER.24H (FP) PO SCH (22:39)
[2017-06-09] MEDS: HEPARIN NA (PORCINE) 5,000 UNITS/ML 1ML VIAL SQ SCH (22:39)
[2017-06-09] MEDS: PREGABALIN 50 MG CAPSULE PO SCH (22:39)
[2017-06-09] MEDS: INSULIN DETEMIR 100 UNITS/ML MDV SQ SCH (22:40)
[2017-06-09] MEDS: MULTIVITAMINS (DAILY MVI) TABLET (FP) PO SCH (22:41)
[2017-06-09] MEDS: ASCORBIC ACID 500 MG TABLET (FP) PO SCH (22:42)
[2017-06-09 23:32] VITALS: BMI 22.5
[2017-06-10] MEDS ORDERED: PIPERACILLIN/TAZOB 3.375 GM/50 ML PRE-DOCKED IVPB ONE (01:00)
[2017-06-10] MEDS: INSULIN SLIDING SCALE (NOVOLOG) 1 VIAL SQ SCH ×4 (06:23→22:44)
[2017-06-10 08:26] LABS: MCH 34.4 pg (25.7-33.7); MCHC 33.6 g/dl (32.0-35.9); MEAN CELL VOLUME 102.5 fl (80-96); MEAN PLT VOLUME 9.6 fl (7.5-11.1); PLATELET COUNT 99 K/MM3 (134-434); RDW 14.2 % (11.9-15.9); WHITE BLOOD COUNT 5.5 K/mm3 (4.0-10.0)
--- NOTE | 2017-06-10 08:55 | PN ---
Progress Note (short form) - Note Progress Note: ID Consult dictated Hemorrhagic bulla R 2nd toe, possible cellulitis Diabetes mellitus PAD CKD Thrombocytopenia Await cultures Surgical evaluation Empiric cefazolin
[2017-06-10] MEDS ORDERED: CEFAZOLIN 1 GM in DEXTROSE 5%-WATER - 50 ML IVPB SCH (09:00)
--- NOTE | 2017-06-10 09:15 | CONS ---
DATE OF CONSULTATION: DATE OF DICTATION: 06/10/2017 INFECTIOUS DISEASE CONSULTATION HISTORY OF PRESENT ILLNESS: The patient is an 87-year-old diabetic male with a history of peripheral vascular disease, evaluated for possible cellulitis of the right 2nd toe. The patient reports a 2-day history of worsening swelling and erythema of the right 2nd toe. He subsequently developed a bullous lesion on the dorsum of the toe. He denies any traumatic injury to the foot. He does not know how this occurred. He denies any associated fever or chills. The patient has a history of diabetes mellitus and peripheral arterial disease. He is status post left lower extremity vascular bypass. He lives at home. He has not been recently hospitalized. He has no prior history of MRSA. PAST MEDICAL HISTORY: Positive for diabetes mellitus, peripheral arterial disease, hypertension, congestive heart failure, coronary artery disease, status post coronary artery stent, chronic kidney disease. PAST SURGICAL HISTORY: Status post CABG, left lower extremity vascular bypass, left transmetatarsal amputation, permanent pacemaker. ALLERGIES: No known allergies. MEDICATIONS: Synthroid, aspirin, Plavix, Avodart, Flomax, Cozaar, Lyrica, Coreg, Zantac, Crestor, Lasix. SOCIAL HISTORY: He lives at home with his significant other. He is a former smoker. REVIEW OF SYSTEMS: Neurologic: No loss of consciousness, seizure activity, focal weakness. Cardiac: Negative for chest pain or palpitations. Respiratory: Negative for cough or sputum production. Gastrointestinal: Negative for vomiting or diarrhea. Genitourinary: Positive for chronic kidney disease. LABORATORY DATA: White count 5.5, hematocrit 28.7, platelet count 99. BUN 67, creatinine 1.7. RADIOGRAPHIC STUDIES: X-ray of the foot shows degenerative changes. No sign of gross fracture or subluxation. Second toe grossly intact. PHYSICAL EXAMINATION: General: He is awake and alert. He is not acutely toxic appearing. Vital Signs: Temperature 97.2, blood pressure 102/47, pulse 60 and regular, respirations 18 per minute. HEENT: Sclerae anicteric. Cardiac: Heart sounds S1, S2. Lungs: A few crepitations at the bases bilaterally. Healed sternal scar. Abdomen: Soft. No tenderness elicited. No mass, rebound or rigidity. Extremities: On examination of the left lower extremity, he is status post left transmetatarsal amputation. On examination of the right foot, there is a large hemorrhagic bulla present over the dorsal aspect of the right 2nd toe. There is slight erythema at the distal tip of the right 2nd toe. It is tender to touch. There is no erythema extending to the dorsum of the foot. No lymphangitis. IMPRESSION: 1. Hemorrhagic bulla right 2nd toe, possible cellulitis. 2. Diabetes mellitus. 3. Peripheral vascular disease. 4. Chronic kidney disease. 5. Thrombocytopenia. PLAN: Await culture results. Surgical evaluation. Empiric treatment with cefazolin 1 g IV piggyback every 8 hours. Local wound care. Will follow. Thank you for the kind referral. DAVID GUZMAN M.D. [id number]
[2017-06-10 09:25] LABS: ALBUMIN 3.1 g/dl (3.4-5.0); ALK PHOS 115 U/L (45-117); ANION GAP 8 (8-16); BILIRUBIN,TOTAL 0.6 mg/dL (0.2-1.0); CALCIUM 8.7 mg/dL (8.5-10.1); CO2 22 mmol/L (21-32); CREATININE 1.7 mg/dL (0.7-1.3); GLUCOSE,RANDOM 112 mg/dL (74-106); SGOT/AST 17 U/L (15-37); SGPT/ALT 29 U/L (12-78); TOT PROT 7.3 g/dl (6.4-8.2)
[2017-06-10] MEDS ORDERED: PT OWN MED DRAWER 7, Y5N ONE ×2 (09:30→17:33)
--- NOTE | 2017-06-10 09:45 | HP ---
Admitting History and Physical - Primary Care Physician PCP: Joie Noonan S - Admission Chief Complaint: R toe blister and pain History of Present Illness: HISTORY OF PRESENT ILLNESS: 87-year-old man with a history of ASHD CHF CRF DM, PVD peripheral arterial disease presents with swollen, red right second toe. He noticed redness and swelling and it is been getting progressively worse. He denies any fever. He denies any discharge from the toe. It now has a big red blood blister on it. 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 The surgery was done here by Dr. Loyd Small. History Source: Patient, Medical Record Limitations to Obtaining History: No Limitations - Past Medical History Cardiovascular: Yes: CAD (CABG), HTN, Mitral Insufficiency, Other (ICD for induced ventricular tachycardia) Pulmonary: Yes: COPD Gastrointestinal: Yes: Other (recent C diff colitis, gallstones, chronic cholecystitis) Renal/: Yes: Renal Failure (had ARF last month in September creat bumped to 2), BPH, Renal Calculi Heme/Onc: Yes: Anemia Infectious Disease: Yes: C-Diff Musculoskeletal: Yes: Other (L foot wound s/p partial amputation) Endocrine: Yes: Diabetes Mellitus, Other (diabetic neuropathy) - Past Surgical History Past Surgical History: Yes: AICD, Amputation (TMA), Bypass, CABG - Smoking History Smoking history: Former smoker Have you smoked in the past 12 months: No Aproximately how many cigarettes per day: 30 If you are a former smoker, when did you quit?: 2009 - Alcohol/Substance Use Hx Alcohol Use: No History of Substance Use: reports: None - Social History Usual Living Arrangement: Yes: With Spouse ADL: Family Assistance History of Recent Travel: No Home Medications - Allergies Allergies/Adverse Reactions: Allergies Allergy/AdvReac Type Severity Reaction Status Date / Time No Known Allergies Allergy Verified 08/29/16 01:56 - Home Medications Home Medications: Ambulatory Orders Ascorbate Calcium [Vitamin C] 500 mg PO DAILY 01/20/14 Aspirin [ASA -] 81 mg PO DAILY 01/20/14 Carvedilol 3.125 mg PO BID 01/20/14 Clopidogrel Bisulfate [Plavix -] 75 mg PO DAILY 01/20/14 Folic Acid - 1 mg PO DAILY 01/20/14 Pregabalin [Lyrica -] 50 mg PO HS 01/20/14 Ranitidine HCl [Zantac] 150 mg PO HS 01/20/14 Tamsulosin HCl [Flomax -] 0.4 mg PO HS 01/20/14 Magnesium 250 mg PO DAILY 10/25/15 Levothyroxine [Synthroid -] 75 mcg PO MOTUWETH 07/21/16 Losartan Potassium [Cozaar -] 25 mg PO DAILY #90 tablet 09/02/16 Ergocalciferol (Vitamin D2) [Vitamin D2] 2,000 unit PO DAILY 06/09/17 Finasteride 0.05 mg PO DAILY 06/09/17 Furosemide [Lasix -] 20 mg PO DAILY 06/09/17 Insulin Glargine,Hum.rec.anlog [Lantus (10mL VIAL) -] 10 units SQ HS 06/09/17 Multivit-Min/FA/Lycopen/Lutein [Centrum Silver Tablet] 1 tab PO DAILY 06/09/17 Pregabalin [Lyrica] 50 mg PO HS 06/09/17 Rosuvastatin Calcium 10 mg PO HS 06/09/17 Acetaminophen [Tylenol .Regular Strength -] 650 mg PO Q6H PRN tablet 06/13/17 Cephalexin Monohydrate [Keflex -] 500 mg PO BID #14 capsule 06/13/17 Insulin Sliding Scale [Novolog Vial Sliding Scale -] 1 vial SQ ACHS units 06/13 Family Disease History - Family Disease History Family Disease History: Heart Disease: Mother, Brother (liver CA), CA: Brother Review of Systems - Review of Systems Constitutional: denies: Chills, Fever Eyes: denies: Double Vision, Recent Change in Vision HENT: denies: Difficult Swallowing, Ear Pain Cardiovascular: denies: Chest Pain, Shortness of Breath Respiratory: denies: Cough, Orthopnea Gastrointestinal: denies: Abdominal Pain, Constipation, Diarrhea, Vomiting Genitourinary: denies: Dysuria, Flank Pain Musculoskeletal: denies: Back Pain, Extremity Pain Neurological: denies: Change in LOC, Confusion Hematology/Lymphatic: denies: Easily Bruised, Excessive Bleeding Psychiatric: denies: Altered Sleep Pattern, Anxiety, Depression Physical Examination Vital Signs: Vital Signs Temperature 98 F 06/10/17 09:42 Pulse Rate 65 06/10/17 09:42 Respiratory Rate 18 11/25/17 09:42 Blood Pressure 108/50 06/10/17 09:42 O2 Sat by Pulse Oximetry (%) 94 L 06/09/17 20:30 Constitutional: Yes: No Distress, Calm Eyes: Yes: Conjunctiva Clear HENT: Yes: Atraumatic Neck: Yes: Supple Cardiovascular: Yes: Regular Rate and Rhythm Respiratory: Yes: CTA Bilaterally Gastrointestinal: Yes: Soft. No: Distention, Tenderness Renal/: No: CVA Tenderness - Left, CVA Tenderness - Right, Hematuria Musculoskeletal: No: Joint Stiffness, Joint Swelling Extremities: Yes: Other (R foot 2nd toe with bloody blister and some rash surrounding it; L TMA). No: Cold, Cool, Cyanosis Edema: No Peripheral Pulses WNL: Yes Integumentary: No: Rash, Venous Stasis Changes Neurological: Yes: WNL, Alert, Oriented ...Motor Strength: WNL Psychiatric: Yes: WNL, Alert, Oriented. No: Agitated, Suicidal Ideation Labs: CBC, BMP 06/10/17 07:00 Imaging - Results Chest X-ray: Report Reviewed Other: Report Reviewed Assessment/Plan 87-year-old man with a history of ASHD, CHF, CRF, anemia, DM and PVD peripheral arterial disease presents with swollen, red right second toe and blood blister with surrounding rash admit for ID and vascular surgery eval IV ATB per ID wound care per surgery falls DVT PFXd/w pt and staff
[2017-06-10] MEDS: CARVEDILOL 3.125 MG TABLET (FP) PO SCH ×2 (10:00→22:50)
[2017-06-10] MEDS: ASCORBIC ACID 500 MG TABLET (FP) PO SCH (10:00)
[2017-06-10] MEDS: FOLIC ACID 1 MG TABLET (FP) PO SCH (10:00)
[2017-06-10] MEDS: FUROSEMIDE 20 MG TABLET (FP) PO SCH (10:00)
[2017-06-10] MEDS: CLOPIDOGREL BISULFATE 75 MG TABLET (FP) PO SCH (10:00)
[2017-06-10] MEDS: HEPARIN NA (PORCINE) 5,000 UNITS/ML 1ML VIAL SQ SCH ×2 (10:00→22:49)
[2017-06-10] MEDS: LOSARTAN POTASSIUM 25 MG TABLET PO SCH (10:00)
[2017-06-10] MEDS: MULTIVITAMINS (DAILY MVI) TABLET (FP) PO SCH (10:00)
[2017-06-10] MEDS: ASPIRIN 81 MG CHEWABLE TABLETS PO SCH (10:00)
[2017-06-10] MEDS: DUTASTERIDE 0.5 MG CAP (FP) PO SCH (10:01)
[2017-06-10] MEDS: MAGNESIUM OXIDE 400 MG TABLET (FP) PO SCH (10:02)
[2017-06-10] MEDS: CEFAZOLIN 1 GM PUSH 1 GM/10 ML DISP.SYRIN IVPUSH SCH ×2 (11:31→17:46)
--- NOTE | 2017-06-10 14:07 | CONSULT ---
Consult - text type - Consultation Consultation Note: Podiatry Consultation: Pleasant 87 year old IDDM M seen at bedside with , denies F/V/N/C/SOB/CP. Podiatry consultation for swollen blister 2nd toe right foot. Patient is a long time patient of Dr. Small, s/p L transtarsal amputation. Patient was seen in September by Vascular, who stated that based on dopplers PVD is mostly unchanged. He notes mild trauma to the toe after hitting it against his walker. Currently afebrile, VSS. PMHx: IDDM, HTN, HLP, CAD s/p CABG, CKD, COPD, s/p L transtarsal amputation Meds: noted in chart ALL: NKMA ELSA: R foot: pedal pulses non-palpable, TG wnl, CFT brisk to toes. There is a hemmorhaghic bulla entirety of 2nd digit, grossly intact, no purulence, moderate fluctuance, no periwound erythema, no ascending cellulitis, no soft tissue crepitus, no signs of active infection, no tenderness to palpation. Digital swelling. WBC: 5.5 Blood Cx: pending R foot XR: no evidence of osteomyelitis, no soft tissue gas Imp: 87 year old DM, PVD M with R 2nd toe bulla 1. IV Abx per Infectious Disease 2. Patient and his would like to hold off on evacuation of bulla until Dr. Small evaluates. Concerns over healing potential of 2nd toe, and given it is not acutely infected we can hold off. 3. Recommend PVRs to evaluate peripheral circulation. 4. Thank you for the courtesy of this consultation. Bishop Kelly DPM
[2017-06-10] MEDS ORDERED: INSULIN (NOVOLOG) ASPART 100 UNITS/ML 10ML VIAL ONE (21:35)
[2017-06-10] MEDS: INSULIN DETEMIR 100 UNITS/ML MDV SQ SCH (22:49)
[2017-06-10] MEDS: TAMSULOSIN HCL 0.4 MG CAP.ER.24H (FP) PO SCH (22:50)
[2017-06-10] MEDS: PREGABALIN 50 MG CAPSULE PO SCH (22:50)
[2017-06-10] MEDS: ROSUVASTATIN CA 10 MG TABLET (FP) PO SCH (22:50)
[2017-06-10] MEDS: RANITIDINE HCL 150 MG TABLET (FP) PO SCH (22:52)
[2017-06-11] MEDS: CEFAZOLIN 1 GM PUSH 1 GM/10 ML DISP.SYRIN IVPUSH SCH ×3 (02:40→18:44)
[2017-06-11] MEDS: ACETAMINOPHEN 325 MG TABLET (FP) PO PRN (02:45)
[2017-06-11] MEDS: INSULIN SLIDING SCALE (NOVOLOG) 1 VIAL SQ SCH ×4 (06:22→22:04)
--- NOTE | 2017-06-11 08:11 | PN ---
Progress Note, Physician Chief Complaint: in bed NAD VSS no c/o afebrile consults reviewed and d/w pt - Current Medication List Current Medications: Active Medications Acetaminophen (Tylenol -) 650 mg PO Q6H PRN PRN Reason: PAIN Last Admin: 06/11/17 02:45 Dose: 650 mg Ascorbic Acid (Vitamin C -) 500 mg PO DAILY [facility] Last Admin: 06/10/17 10:00 Dose: 500 mg Aspirin (Asa -) 81 mg PO DAILY [facility] Last Admin: 06/10/17 10:00 Dose: 81 mg Carvedilol (Coreg -) 3.125 mg PO BID [facility] Last Admin: 06/10/17 22:50 Dose: 3.125 mg Clopidogrel Bisulfate (Plavix -) 75 mg PO DAILY [facility] Last Admin: 06/10/17 10:00 Dose: 75 mg Dutasteride (Avodart -) 0.5 mg PO DAILY [facility] Last Admin: 06/10/17 10:01 Dose: 0.5 mg Folic Acid (Folic Acid -) 1 mg PO DAILY [facility] Last Admin: 06/10/17 10:00 Dose: 1 mg Furosemide (Lasix -) 20 mg PO DAILY [facility] Last Admin: 06/10/17 10:00 Dose: 20 mg Heparin Sodium (Porcine) (Heparin -) 5,000 unit SQ BID [facility] Last Admin: 06/10/17 22:49 Dose: 5,000 unit Cefazolin Sodium (Ancef -) 1 gm in 10 mls @ 120 mls/hr IVPUSH Q8H-IV [facility] Last Admin: 06/11/17 02:40 Dose: 120 mls/hr Insulin Aspart (Novolog Vial Sliding Scale -) 1 vial SQ ACHS [facility] PRN Reason: Protocol Last Admin: 06/11/17 06:22 Dose: Not Given Insulin Detemir (Levemir Vial) 6 units SQ HS [facility] Last Admin: 06/10/17 22:49 Dose: 6 units Levothyroxine Sodium (Synthroid -) 75 mcg PO MoTuWeTh@0700 [facility] Losartan Potassium (Cozaar -) 25 mg PO DAILY [facility] Last Admin: 06/10/17 10:00 Dose: 25 mg Magnesium Oxide (Mag-Ox -) 400 mg PO DAILY [facility] Last Admin: 06/10/17 10:02 Dose: 400 mg Multivitamins/Minerals/Vitamin C (Tab-A-Vit -) 1 tab PO DAILY [facility] Last Admin: 06/10/17 10:00 Dose: 1 tab Pregabalin (Lyrica -) 50 mg PO [facility] Last Admin: 06/10/17 22:50 Dose: 50 mg Ranitidine HCl (Zantac -) 150 mg PO [facility] Last Admin: 06/10/17 22:52 Dose: 150 mg Rosuvastatin Calcium (Crestor -) 10 mg PO [facility] Last Admin: 06/10/17 22:50 Dose: 10 mg Tamsulosin HCl (Flomax -) 0.4 mg PO [facility] Last Admin: 06/10/17 22:50 Dose: 0.4 mg - Objective Vital Signs: Vital Signs Temperature 97.6 F 06/11/17 06:00 Pulse Rate 63 06/11/17 06:00 Respiratory Rate 18 06/11/17 06:00 Blood Pressure 101/53 06/11/17 06:00 O2 Sat by Pulse Oximetry (%) 96 06/10/17 21:00 Constitutional: Yes: No Distress, Calm Eyes: Yes: Conjunctiva Clear HENT: Yes: Atraumatic Neck: Yes: Supple Cardiovascular: Yes: Regular Rate and Rhythm Respiratory: Yes: CTA Bilaterally Gastrointestinal: Yes: Soft Genitourinary: No: Hematuria Musculoskeletal: No: Joint Stiffness Extremities: No: Cold, Cool Edema: No Integumentary: No: Rash, Venous Stasis Changes Neurological: Yes: WNL, Alert, Oriented ...Motor Strength: WNL Psychiatric: Yes: WNL, Alert, Oriented. No: Agitated Labs: CBC, BMP 06/10/17 07:00 06/10/17 07:00 INR, PTT INR 1.13 (0.82-1.09) 06/09/17 14:50 - ....Imaging Other: Report Reviewed Assessment/Plan 87-year-old man with a history of ASHD, CHF, CRF, anemia, DM and PVD peripheral arterial disease presents with swollen, red right second toe and blood blister with surrounding rash ID and vascular surgery f/u IV ATB per ID wound care per surgery falls DVT PFX d/w pt and staff
[2017-06-11] MEDS: MULTIVITAMINS (DAILY MVI) TABLET (FP) PO SCH (09:29)
[2017-06-11] MEDS: MAGNESIUM OXIDE 400 MG TABLET (FP) PO SCH (09:29)
[2017-06-11] MEDS: FOLIC ACID 1 MG TABLET (FP) PO SCH (09:29)
[2017-06-11] MEDS: ASCORBIC ACID 500 MG TABLET (FP) PO SCH (09:29)
[2017-06-11] MEDS: LOSARTAN POTASSIUM 25 MG TABLET PO SCH (09:29)
[2017-06-11] MEDS: ASPIRIN 81 MG CHEWABLE TABLETS PO SCH (09:29)
[2017-06-11] MEDS: FUROSEMIDE 20 MG TABLET (FP) PO SCH (09:30)
[2017-06-11] MEDS: CLOPIDOGREL BISULFATE 75 MG TABLET (FP) PO SCH (09:30)
[2017-06-11] MEDS: CARVEDILOL 3.125 MG TABLET (FP) PO SCH ×2 (09:32→22:02)
[2017-06-11] MEDS: HEPARIN NA (PORCINE) 5,000 UNITS/ML 1ML VIAL SQ SCH ×2 (09:32→22:02)
[2017-06-11] MEDS: DUTASTERIDE 0.5 MG CAP (FP) PO SCH (09:33)
[2017-06-11] MEDS ORDERED: INSULIN (NOVOLOG) ASPART 100 UNITS/ML 10ML VIAL ONE (21:21)
[2017-06-11] MEDS: PREGABALIN 50 MG CAPSULE PO SCH (22:02)
[2017-06-11] MEDS: TAMSULOSIN HCL 0.4 MG CAP.ER.24H (FP) PO SCH (22:02)
[2017-06-11] MEDS: RANITIDINE HCL 150 MG TABLET (FP) PO SCH (22:02)
[2017-06-11] MEDS: ROSUVASTATIN CA 10 MG TABLET (FP) PO SCH (22:02)
[2017-06-11] MEDS: INSULIN DETEMIR 100 UNITS/ML MDV SQ SCH (22:02)
[2017-06-12] MEDS ORDERED: PT OWN MED DRAWER 7, Y5N ONE ×2 (02:11→10:33)
[2017-06-12] MEDS: CEFAZOLIN 1 GM PUSH 1 GM/10 ML DISP.SYRIN IVPUSH SCH ×3 (02:29→18:24)
[2017-06-12] MEDS: LEVOTHYROXINE NA 75 MCG TABLET (FP) PO SCH (06:42)
[2017-06-12] MEDS: INSULIN SLIDING SCALE (NOVOLOG) 1 VIAL SQ SCH ×4 (06:42→22:06)
[2017-06-12] MEDS: CARVEDILOL 3.125 MG TABLET (FP) PO SCH ×2 (10:00→22:07)
[2017-06-12] MEDS: CLOPIDOGREL BISULFATE 75 MG TABLET (FP) PO SCH (10:22)
[2017-06-12] MEDS: ASCORBIC ACID 500 MG TABLET (FP) PO SCH (10:22)
[2017-06-12] MEDS: MULTIVITAMINS (DAILY MVI) TABLET (FP) PO SCH (10:23)
[2017-06-12] MEDS: ASPIRIN 81 MG CHEWABLE TABLETS PO SCH (10:23)
[2017-06-12] MEDS: MAGNESIUM OXIDE 400 MG TABLET (FP) PO SCH (10:23)
[2017-06-12] MEDS: FOLIC ACID 1 MG TABLET (FP) PO SCH (10:23)
[2017-06-12] MEDS: HEPARIN NA (PORCINE) 5,000 UNITS/ML 1ML VIAL SQ SCH ×2 (10:25→22:07)
[2017-06-12] MEDS: DUTASTERIDE 0.5 MG CAP (FP) PO SCH (10:35)
[2017-06-12] MEDS ORDERED: INSULIN (NOVOLOG) ASPART 100 UNITS/ML 10ML VIAL ONE (12:11)
--- NOTE | 2017-06-12 13:11 | PN ---
Progress Note, Physician Chief Complaint: in bed NAD no new c/o - Current Medication List Current Medications: Active Medications Acetaminophen (Tylenol -) 650 mg PO Q6H PRN PRN Reason: PAIN Last Admin: 06/11/17 02:45 Dose: 650 mg Ascorbic Acid (Vitamin C -) 500 mg PO DAILY [facility] Last Admin: 06/12/17 10:22 Dose: 500 mg Aspirin (Asa -) 81 mg PO DAILY [facility] Last Admin: 06/12/17 10:23 Dose: 81 mg Carvedilol (Coreg -) 3.125 mg PO BID [facility] Last Admin: 06/11/17 22:02 Dose: 3.125 mg Clopidogrel Bisulfate (Plavix -) 75 mg PO DAILY [facility] Last Admin: 06/12/17 10:22 Dose: 75 mg Dutasteride (Avodart -) 0.5 mg PO DAILY [facility] Last Admin: 06/12/17 10:35 Dose: 0.5 mg Folic Acid (Folic Acid -) 1 mg PO DAILY [facility] Last Admin: 06/12/17 10:23 Dose: 1 mg Furosemide (Lasix -) 20 mg PO DAILY [facility] Last Admin: 06/11/17 09:30 Dose: 20 mg Heparin Sodium (Porcine) (Heparin -) 5,000 unit SQ BID [facility] Last Admin: 06/12/17 10:25 Dose: 5,000 unit Cefazolin Sodium (Ancef -) 1 gm in 10 mls @ 120 mls/hr IVPUSH Q8H-IV [facility] Last Admin: 06/12/17 02:29 Dose: 120 mls/hr Insulin Aspart (Novolog Vial Sliding Scale -) 1 vial SQ ACHS [facility] PRN Reason: Protocol Last Admin: 06/12/17 12:14 Dose: 2 units Insulin Detemir (Levemir Vial) 6 units SQ HS [facility] Last Admin: 06/11/17 22:02 Dose: 6 units Levothyroxine Sodium (Synthroid -) 75 mcg PO MoTuWeTh@0700 [facility] Last Admin: 06/12/17 06:42 Dose: 75 mcg Losartan Potassium (Cozaar -) 25 mg PO DAILY [facility] Last Admin: 06/11/17 09:29 Dose: 25 mg Magnesium Oxide (Mag-Ox -) 400 mg PO DAILY [facility] Last Admin: 06/12/17 10:23 Dose: 400 mg Multivitamins/Minerals/Vitamin C (Tab-A-Vit -) 1 tab PO DAILY [facility] Last Admin: 06/12/17 10:23 Dose: 1 tab Pregabalin (Lyrica -) 50 mg PO [facility] Last Admin: 06/11/17 22:02 Dose: 50 mg Ranitidine HCl (Zantac -) 150 mg PO [facility] Last Admin: 06/11/17 22:02 Dose: 150 mg Rosuvastatin Calcium (Crestor -) 10 mg PO [facility] Last Admin: 06/11/17 22:02 Dose: 10 mg Tamsulosin HCl (Flomax -) 0.4 mg PO [facility] Last Admin: 06/11/17 22:02 Dose: 0.4 mg - Objective Vital Signs: Vital Signs Temperature 97.6 F 06/12/17 10:21 Pulse Rate 66 06/12/17 10:21 Respiratory Rate 17 06/12/17 10:21 Blood Pressure 97/56 06/12/17 10:21 O2 Sat by Pulse Oximetry (%) 96 06/11/17 21:00 Constitutional: Yes: No Distress Eyes: Yes: Conjunctiva Clear HENT: Yes: Atraumatic Neck: Yes: Supple Cardiovascular: Yes: Regular Rate and Rhythm Respiratory: Yes: CTA Bilaterally Gastrointestinal: Yes: Soft Genitourinary: No: Hematuria Musculoskeletal: No: Joint Stiffness, Joint Swelling Extremities: No: Cold, Cool Edema: No Integumentary: No: Rash, Venous Stasis Changes Neurological: Yes: WNL, Alert, Oriented Psychiatric: Yes: WNL, Alert, Oriented. No: Agitated Labs: CBC, BMP 06/10/17 07:00 06/10/17 07:00 INR, PTT INR 1.13 (0.82-1.09) 06/09/17 14:50 - ....Imaging Other: Report Reviewed Assessment/Plan 87-year-old man with a history of ASHD, CHF, CRF, anemia, DM and PVD peripheral arterial disease presents with swollen, red right second toe and blood blister with surrounding rash ID and vascular surgery f/u IV ATB per ID wound care per surgery falls DVT PFX d/w pt and staff
[2017-06-12] MEDS: LOSARTAN POTASSIUM 25 MG TABLET PO SCH (14:26)
[2017-06-12] MEDS: FUROSEMIDE 20 MG TABLET (FP) PO SCH (14:26)
--- NOTE | 2017-06-12 16:33 | PN ---
Progress Note, Physician History of Present Illness: No c/o toe pain No fever/ chills Afebrile WBC WNL - Current Medication List Current Medications: Active Medications Acetaminophen (Tylenol -) 650 mg PO Q6H PRN PRN Reason: PAIN Last Admin: 06/11/17 02:45 Dose: 650 mg Ascorbic Acid (Vitamin C -) 500 mg PO DAILY [facility] Last Admin: 06/12/17 10:22 Dose: 500 mg Aspirin (Asa -) 81 mg PO DAILY [facility] Last Admin: 06/12/17 10:23 Dose: 81 mg Carvedilol (Coreg -) 3.125 mg PO BID [facility] Last Admin: 06/12/17 10:00 Dose: Not Given Clopidogrel Bisulfate (Plavix -) 75 mg PO DAILY [facility] Last Admin: 06/12/17 10:22 Dose: 75 mg Dutasteride (Avodart -) 0.5 mg PO DAILY [facility] Last Admin: 06/12/17 10:35 Dose: 0.5 mg Folic Acid (Folic Acid -) 1 mg PO DAILY [facility] Last Admin: 06/12/17 10:23 Dose: 1 mg Furosemide (Lasix -) 20 mg PO DAILY [facility] Last Admin: 06/12/17 14:26 Dose: Not Given Heparin Sodium (Porcine) (Heparin -) 5,000 unit SQ BID [facility] Last Admin: 06/12/17 10:25 Dose: 5,000 unit Cefazolin Sodium (Ancef -) 1 gm in 10 mls @ 120 mls/hr IVPUSH Q8H-IV [facility] Last Admin: 06/12/17 13:31 Dose: 120 mls/hr Insulin Aspart (Novolog Vial Sliding Scale -) 1 vial SQ ACHS [facility] PRN Reason: Protocol Last Admin: 06/12/17 12:14 Dose: 2 units Insulin Detemir (Levemir Vial) 6 units SQ HS [facility] Last Admin: 06/11/17 22:02 Dose: 6 units Levothyroxine Sodium (Synthroid -) 75 mcg PO MoTuWeTh@0700 [facility] Last Admin: 06/12/17 06:42 Dose: 75 mcg Losartan Potassium (Cozaar -) 25 mg PO DAILY [facility] Last Admin: 06/12/17 14:26 Dose: Not Given Magnesium Oxide (Mag-Ox -) 400 mg PO DAILY [facility] Last Admin: 06/12/17 10:23 Dose: 400 mg Multivitamins/Minerals/Vitamin C (Tab-A-Vit -) 1 tab PO DAILY [facility] Last Admin: 06/12/17 10:23 Dose: 1 tab Pregabalin (Lyrica -) 50 mg PO [facility] Last Admin: 06/11/17 22:02 Dose: 50 mg Ranitidine HCl (Zantac -) 150 mg PO [facility] Last Admin: 06/11/17 22:02 Dose: 150 mg Rosuvastatin Calcium (Crestor -) 10 mg PO [facility] Last Admin: 06/11/17 22:02 Dose: 10 mg Tamsulosin HCl (Flomax -) 0.4 mg PO [facility] Last Admin: 06/11/17 22:02 Dose: 0.4 mg - Objective Vital Signs: Vital Signs Temperature 98.1 F 06/12/17 15:00 Pulse Rate 68 06/12/17 15:00 Respiratory Rate 18 06/12/17 15:00 Blood Pressure 119/53 06/12/17 15:00 O2 Sat by Pulse Oximetry (%) 95 06/12/17 09:00 Constitutional: Yes: No Distress Cardiovascular: Yes: Regular Rate and Rhythm, S1, S2 Respiratory: Yes: CTA Bilaterally Gastrointestinal: Yes: Normal Bowel Sounds, Soft. No: Tenderness Extremities: Yes: Other (+ hemorrhagic bulla, dorsum R 2nd toe decreased erythema distal toe) Labs: CBC, BMP 06/10/17 07:00 06/10/17 07:00 INR, PTT INR 1.13 (0.82-1.09) 06/09/17 14:50 Assessment/Plan Hemorrhagic bulla R 2nd toe Cellulitis - resolved PAD CKD DM Thrombocytopenia Substitute po keflex 500mg po bid Surgical follow up
--- NOTE | 2017-06-12 19:27 | CONSULT ---
Consult - History of Present Illness History of Present Illness: 87 year old man with severe PAD who is followed in my office for a left TMA and right foot wounds. He was admitted with a blister on his right 2nd toe. He states that he has not used any new shoes or had any trauma to the toes. He denies pain. - Past Medical History Cardio/Vascular: Yes: CAD (CABG), HTN, Mitral Insufficiency, Other (ICD for induced ventricular tachycardia) Pulmonary: Yes: COPD Gastrointestinal: Yes: Other (recent C diff colitis, gallstones, chronic cholecystitis) Renal/: Yes: Renal Failure (had ARF last month in September creat bumped to 2), BPH, Renal Calculi Infectious Disease: Yes: C-Diff Musculoskeletal: Yes: Other (L foot wound s/p partial amputation) Endocrine: Yes: Diabetes Mellitus, Other (diabetic neuropathy) - Past Surgical History Past Surgical History: Yes: AICD, Amputation (TMA), Bypass, CABG - Alcohol/Substance Use Hx Alcohol Use: No History of Substance Use: reports: None - Smoking History Smoking history: Former smoker Have you smoked in the past 12 months: No Aproximately how many cigarettes per day: 30 If you are a former smoker, when did you quit?: 2009 - Social History Usual Living Arrangement: With Spouse ADL: Family Assistance History of Recent Travel: No Home Medications - Allergies Allergies/Adverse Reactions: Allergies Allergy/AdvReac Type Severity Reaction Status Date / Time No Known Allergies Allergy Verified 08/29/16 01:56 - Home Medications Home Medications: Ambulatory Orders Ascorbate Calcium [Vitamin C] 500 mg PO DAILY 01/20/14 Aspirin [ASA -] 81 mg PO DAILY 01/20/14 Carvedilol 3.125 mg PO BID 01/20/14 Clopidogrel Bisulfate [Plavix -] 75 mg PO DAILY 01/20/14 Folic Acid - 1 mg PO DAILY 01/20/14 Pregabalin [Lyrica -] 50 mg PO HS 01/20/14 Ranitidine HCl [Zantac] 150 mg PO HS 01/20/14 Tamsulosin HCl [Flomax -] 0.4 mg PO HS 01/20/14 Magnesium 250 mg PO DAILY 10/25/15 Levothyroxine [Synthroid -] 75 mcg PO MOTUWETH 07/21/16 Losartan Potassium [Cozaar -] 25 mg PO DAILY #90 tablet 09/02/16 Ascorbate Calcium [Vitamin C] 500 mg PO DAILY 06/09/17 Ergocalciferol (Vitamin D2) [Vitamin D2] 2,000 unit PO DAILY 06/09/17 Finasteride 0.05 mg PO DAILY 06/09/17 Furosemide [Lasix -] 20 mg PO DAILY 06/09/17 Insulin Glargine,Hum.rec.anlog [Lantus (nf)] 10 units SQ HS 06/09/17 Multivit-Min/FA/Lycopen/Lutein [Centrum Silver Tablet] 1 tab PO DAILY 06/09/17 Pregabalin [Lyrica] 50 mg PO HS 06/09/17 Rosuvastatin Calcium 10 mg PO HS 06/09/17 Family Disease History - Family Disease History Family Disease History: Heart Disease: Mother, Brother (liver CA), CA: Brother Physical Exam Vital Signs: Vital Signs Temperature 98.4 F 06/12/17 19:00 Pulse Rate 60 06/12/17 19:00 Respiratory Rate 18 06/12/17 19:00 Blood Pressure 117/54 06/12/17 19:00 O2 Sat by Pulse Oximetry (%) 95 06/12/17 09:00 Constitutional: Yes: No Distress Edema: No Peripheral Pulses WNL: No Integumentary: Yes: Other (Hemorrhagic blister on right 2nd toe, no erythema. Foot warm.) Labs: CBC, BMP 06/10/17 07:00 06/10/17 07:00 Problem List - Problems (1) Blister of toe of right foot without infection Assessment/Plan: Blood blister of right 2nd toe with no signs of infection. Epithelium was debrided and base of wound is clean and healing. Xeroform dressing applied. Rec: D/C antibiotics and he can be managed as outpatient. Code(s): S90.424A - BLISTER (NONTHERMAL), RIGHT LESSER TOE(S), INITIAL ENCOUNTER Qualifiers: Encounter type: initial encounter Qualified Code(s): S90.424A - Blister ( nonthermal), right lesser toe(s), initial encounter
[2017-06-12] MEDS: INSULIN DETEMIR 100 UNITS/ML MDV SQ SCH (22:06)
[2017-06-12] MEDS: ACETAMINOPHEN 325 MG TABLET (FP) PO PRN (22:07)
[2017-06-12] MEDS: PREGABALIN 50 MG CAPSULE PO SCH (22:07)
[2017-06-12] MEDS: RANITIDINE HCL 150 MG TABLET (FP) PO SCH (22:07)
[2017-06-12] MEDS: TAMSULOSIN HCL 0.4 MG CAP.ER.24H (FP) PO SCH (22:07)
[2017-06-12] MEDS: ROSUVASTATIN CA 10 MG TABLET (FP) PO SCH (22:09)
--- NOTE | 2017-06-12 23:09 | EKG ---
Test Reason : Blood Pressure : / mmHG Vent. Rate : 069 BPM Atrial Rate : 069 BPM P-R Int : 000 ms QRS Dur : 174 ms QT Int : 466 ms P-R-T Axes : 000 -71 111 degrees QTc Int : 499 ms Ventricular-paced rhythm ABNORMAL ECG WHEN COMPARED WITH ECG OF 29-AUG-2016 01:57, PREMATURE VENTRICULAR COMPLEXES ARE NO LONGER PRESENT VENT. RATE HAS DECREASED BY 6 BPM Confirmed by JIMENA VICKERS MD ([id number]) on 06/12/2017 11:09:49 PM Referred By: Confirmed By:JIMENA VICKERS MD
[2017-06-13] MEDS: CEFAZOLIN 1 GM PUSH 1 GM/10 ML DISP.SYRIN IVPUSH SCH ×2 (02:50→10:58)
[2017-06-13] MEDS: INSULIN SLIDING SCALE (NOVOLOG) 1 VIAL SQ SCH ×2 (06:33→12:21)
[2017-06-13] MEDS: LEVOTHYROXINE NA 75 MCG TABLET (FP) PO SCH (06:34)
--- NOTE | 2017-06-13 08:21 | DS ---
Physical Examination Vital Signs: Vital Signs Temperature 97.5 F L 06/13/17 06:00 Pulse Rate 75 06/13/17 06:00 Respiratory Rate 20 06/13/17 06:00 Blood Pressure 101/45 06/13/17 06:00 O2 Sat by Pulse Oximetry (%) 96 06/12/17 21:00 Findings/Remarks: in bed no c/o s/p debridement by surgery R toe blister; DC home with wound care per surgery xeroform dressing per surgery Constitutional: Yes: No Distress, Calm Eyes: Yes: Conjunctiva Clear HENT: Yes: Atraumatic Neck: Yes: Supple Cardiovascular: Yes: Regular Rate and Rhythm Respiratory: Yes: CTA Bilaterally Gastrointestinal: Yes: Soft. No: Distention, Tenderness Renal/: No: CVA Tenderness - Left, CVA Tenderness - Right Musculoskeletal: Yes: Other. No: Joint Stiffness, Joint Swelling Extremities: No: Cold, Cool Edema: No Integumentary: No: Rash, Venous Stasis Changes Neurological: Yes: Alert Psychiatric: Yes: Alert. No: Agitated Labs: CBC, BMP 06/10/17 07:00 06/10/17 07:00 Discharge Summary Reason For Visit: DIABETIC INFECTION OF RIGHT FOOT Current Active Problems Blister of toe of right foot without infection (Acute) Diabetic infection of right foot (Acute) Procedures: Principal: admitted with R 2nd toe blister and rash; s/p IV antibiotics per ID; Other Procedures: s/p debridement and xeroform dressing per surgery Hospital Course: improved with above; DC home on po kelflex bid x 1 week and wound care per surgery; f.u as advised VNS and home PT Condition: Stable - Instructions Diet, Activity, Other Instructions: f/u PCP, podiatry and vascular surgery in 1-2 weeks f/u labs CBC CMP in 1-2 weeks; health maintenance per PCP; RTER if worse or new complaints PO antibiotics x 1 week as ordered wound care at home per surgery; xeroform dressing per surgery; home PT and home VNS; falls PFX d/w pt and ; scripts done as needed. Referrals: Latanya Kirk MD [Primary Care Provider] - Loyd Small MD [Staff Physician] - Disposition: VNS/HOME HEALTH CARE - Home Medications Comprehensive Discharge Medication List: Ambulatory Orders Ascorbate Calcium [Vitamin C] 500 mg PO DAILY 01/20/14 Aspirin [ASA -] 81 mg PO DAILY 01/20/14 Carvedilol 3.125 mg PO BID 01/20/14 Clopidogrel Bisulfate [Plavix -] 75 mg PO DAILY 01/20/14 Folic Acid - 1 mg PO DAILY 01/20/14 Pregabalin [Lyrica -] 50 mg PO HS 01/20/14 Ranitidine HCl [Zantac] 150 mg PO HS 01/20/14 Tamsulosin HCl [Flomax -] 0.4 mg PO HS 01/20/14 Magnesium 250 mg PO DAILY 10/25/15 Levothyroxine [Synthroid -] 75 mcg PO MOTUWETH 07/21/16 Losartan Potassium [Cozaar -] 25 mg PO DAILY #90 tablet 09/02/16 Ascorbate Calcium [Vitamin C] 500 mg PO DAILY 06/09/17 Ergocalciferol (Vitamin D2) [Vitamin D2] 2,000 unit PO DAILY 06/09/17 Finasteride 0.05 mg PO DAILY 06/09/17 Furosemide [Lasix -] 20 mg PO DAILY 06/09/17 Insulin Glargine,Hum.rec.anlog [Lantus (nf)] 10 units SQ HS 06/09/17 Multivit-Min/FA/Lycopen/Lutein [Centrum Silver Tablet] 1 tab PO DAILY 06/09/17 Pregabalin [Lyrica] 50 mg PO HS 06/09/17 Rosuvastatin Calcium 10 mg PO HS 06/09/17
[2017-06-13] MEDS: LOSARTAN POTASSIUM 25 MG TABLET PO SCH (10:53)
[2017-06-13] MEDS: FUROSEMIDE 20 MG TABLET (FP) PO SCH (10:53)
[2017-06-13] MEDS: CARVEDILOL 3.125 MG TABLET (FP) PO SCH (10:53)
[2017-06-13] MEDS ORDERED: PT OWN MED DRAWER 7, Y5N ONE (10:54)
[2017-06-13 10:57] VITALS: BP 105/47; PULSE 64; TEMP 98.2
[2017-06-13] MEDS: ASPIRIN 81 MG CHEWABLE TABLETS PO SCH (11:02)
[2017-06-13] MEDS: DUTASTERIDE 0.5 MG CAP (FP) PO SCH (11:03)
[2017-06-13] MEDS: CLOPIDOGREL BISULFATE 75 MG TABLET (FP) PO SCH (11:03)
[2017-06-13] MEDS: MAGNESIUM OXIDE 400 MG TABLET (FP) PO SCH (11:03)
[2017-06-13] MEDS: FOLIC ACID 1 MG TABLET (FP) PO SCH (11:03)
[2017-06-13] MEDS: MULTIVITAMINS (DAILY MVI) TABLET (FP) PO SCH (11:03)
[2017-06-13] MEDS: ASCORBIC ACID 500 MG TABLET (FP) PO SCH (11:03)
[2017-06-13] MEDS: HEPARIN NA (PORCINE) 5,000 UNITS/ML 1ML VIAL SQ SCH (11:03)
== END 2017-06-13 16:20 | disposition home health service (06) | DRG 603 ==
LOC: JER 11:39 → JERBED 19:09 → J5S 21:00
PROVIDERS: ADMIT Specialist; ATTEND Specialist
PROC: 0HBMXZZ Excision of Right Foot Skin, External Approach (ICD-10-PCS; principal; 2017-06-12)
PROC: 0HDMXZZ Extraction of Right Foot Skin, External Approach (ICD-10-PCS; 2017-06-12)
DX: L03.031 Cellulitis of right toe (principal); E11.51 Type 2 diabetes mellitus with diabetic peripheral angiopathy without gangrene; R23.8 Other skin changes; S90.424A Blister (nonthermal), right lesser toe(s), initial encounter; D69.6 Thrombocytopenia, unspecified; I25.10 Atherosclerotic heart disease of native coronary artery without angina pectoris; Z95.1 Presence of aortocoronary bypass graft; X58.XXXA Exposure to other specified factors, initial encounter; Y93.9 Activity, unspecified; Y92.89 Other specified places as the place of occurrence of the external cause; Y99.9 Unspecified external cause status; N18.9 Chronic kidney disease, unspecified; I12.9 Hypertensive chronic kidney disease with stage 1 through stage 4 chronic kidney disease, or unspecified chronic kidney disease; E11.22 Type 2 diabetes mellitus with diabetic chronic kidney disease; Z79.4 Long term (current) use of insulin
CPT/HCPCS: 36415; 71010-TC; 73630-TC-RT; 80053; 85025; 85027; 85610; 87040; 93005; 93010; 97116-GP; 97161-GP; 99282-25; J1644

== ENCOUNTER 2018-08-01 16:09 | Inpatient (IN) | payer OTHER, MEDICARE ==
[2018-08-01 16:15] VITALS: BMI 22.8
--- NOTE | 2018-08-01 18:51 | PDOC ---
Attending Attestation - HPI HPI: This patient is an 88 year old male, with PMHx of CAD s/p CABG (2009), PAD, partial let foot amputation, hyperthyroidism, IDDM, and BPH, who presents with 3 days of right-sided lower back pain. Patient denies any inciting event but does note that he has a history of chronic lower back pain, and normally ambulates with a walker but has limited mobility due to the worsening back pain. He describes the lower back pain as sharp, non-radiating, rates 10/10. Patient notes that a couple of days ago he was trying to get into a wheelchair and twisted the wrong way hurting his left shoulder. His put on Bengay with some relief, she also put the Bengay on his lower back with no relief. 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 Nunez. Denies recent trauma, falls, dysuria, hematuria, frequency or other change in urination. h/o cancers. Denies any fevers, chills, nausea, vomiting, diarrhea, chest pain, shortness of breath. Social Hx: No tobacco, alcohol, or illicit drug use. Milk Route Deliverer:Latanya Kirk - Physicial Exam PE: GENERAL: Awake, alert, and fully oriented, in no acute distress HEAD: No signs of trauma EYES: PERRLA, EOMI, sclera anicteric, conjunctiva clear ENT: Auricles normal inspection, hard of hearing, nares patent, oropharynx clear without exudates. NECK: Normal ROM, supple, no lymphadenopathy, JVD, or masses LUNGS: Breath sounds equal, clear to auscultation bilaterally. No wheezes, and no crackles HEART: Regular rate and rhythm, normal S1 and S2, no murmurs, rubs or gallops ABDOMEN: Soft, nontender, normoactive bowel sounds. No guarding, no rebound. No masses BACK: Right lower paraspinal tendeness to palpation. Right lower CVA tenderness. Pain is reproducible. No step-offs. EXTREMITIES: Normal range of motion, no edema. No clubbing or cyanosis. No cords, erythema, or tenderness NEUROLOGICAL: Cranial nerves II through XII grossly intact. Normal speech. SKIN: Warm, Dry, normal turgor, no rashes or lesions noted. - Medical Decision Making CT Abdomen & Pelvis IMPRESSION: Moderate-sized bilateral pleural effusions, larger on the right, with compressive atelectasis and/or pneumonia Possible right hemidiaphragmatic paralysis. Small pericardial effusion. Moderate prostate enlargement and questionable muscular hypertrophy of the urinary bladder wall versus mild cystitis which can be correlated with urinalysis Reported By: Aden Abreu MD 08/01/2018 23:[address] Lumbar Spine IMPRESSION: No fracture. Mild to moderate diffuse degenerative changes causing diffuse mild bilateral neural foraminal narrowing, and moderate right neuroforaminal narrowing at the L5/S1 level. One or more of the following dose reduction techniques were used: automated exposure control, adjustment of the mA and/or kV according to patient size, use of iterative reconstructive technique. Reported By: Aden Abreu MD 08/02/2018 00:06 EST 08/02/18 01:[address] Joie Noonan's service for admission <Maria C Childers - Last Filed: 08/02/18 01:01> - Resident Resident Name: Suhas Marcos - ED Attending Attestation I have performed the following: I have examined & evaluated the patient, The case was reviewed & discussed with the resident, I agree w/resident's findings & plan, Exceptions are as noted - Medical Decision Making 08/01/18 18:51 I, Dr. Kimmie Issa, DO, attest that this document has been prepared under my direction and personally reviewed by me in its entirety. I further attest, that it accurately reflects all work, treatment, procedures and medical decision -making performed by me. 08/01/18 20:14 a/p: 88yo male with 3 days of RLB pain after transferring from the bed to his wheelchair -thinks he strained his back and L shoulder - was helping and pulled his shoulder and back -also R CVA ttp -will send labs, cta abd/pelvis and L spine recons - no midline ttp -will eval for uti and pyelo as well -will medicate and re-eval 08/02/18 00:55 pt feeling better, however still with pain b/l pleural effusions and small pericardial effusion on ct will place in obs to Dr. Noonan for echo and pain control and pt <Kimmie Issa - Last Filed: 08/02/18 01:06> *DC/Admit/Observation/Transfer - Discharge Dispostion Decision to Admit order: Yes <Kimmie Issa - Last Filed: 08/02/18 01:06> Diagnosis at time of Disposition: Muscle strain, Pleural effusion, Pericardial effusion - Discharge Dispostion Condition at time of disposition: Fair Attestations - Attestations 08/02/18 00:13 Documentation prepared by Maria C Childers, acting as medical records coder for Kimmie Issa DO. <Maria C Childers - Last Filed: 08/02/18 01:01>
--- NOTE | 2018-08-01 19:38 | PDOC ---
History of Present Illness <AlvaradoMaria C - Last Filed: 08/01/18 20:32> - General History Source: Patient Exam Limitations: No Limitations - History of Present Illness Initial Comments: 08/01/18 21:45 88 yo M with a hx of CAD s/p CABG and defibrillator (2009), peripheral arterial disease (multiple bypasses, partial left foot amputation), BPH, IDDM, and hypothyroidism presents to the emergency department with right lower back pain that has been ongoing for 3 days. Per the patient, he states he believes he may have pulled a muscle while arising from bed and maneuvering to his walker. In the process, he felt pain in his left shoulder and has been favoring his right side. He describes the pain as constant, worsens with truncal movements, 10/10, non radiating, and sharp. He denies the following: recent trauma, falls, incontinence, dysuria, hematuria, cancer, constipation, hematuria, dysuria, fevers, and chills. Denies SOB and chest pain. Meds: aspirin, furosemide, levothyroxine, rosuvastatin, flomax Allergies: NKDA Social: Denies tobacco, alcohol, and substance abuse. <HemantSuhas - Last Filed: 08/02/18 11:58> - General Chief Complaint: Back Pain Stated Complaint: BACK PAIN Time Seen by Provider: 08/01/18 18:29 Past History <AlvaradoMaria C - Last Filed: 08/01/18 20:32> - Past Medical History Anemia: Yes Asthma: No Cancer: No Cardiac Disorders: Yes (CAD, PVD, CABG, stents) COPD: No CHF: Yes Diabetes: Yes HTN: Yes Hypercholesterolemia: No Kidney Stones: Yes Thyroid Disease: No - Surgical History Abdominal Surgery: (gallbladder removal 2015) Appendectomy: No Cardiac Surgery: Yes (cabg x 3/defibrillator implant) Cholecystectomy: Yes Lung Surgery: No Neurologic Surgery: No Orthopedic Surgery: Yes (TMA L) - Immunization History Td Vaccination: No TDAP Vaccination: No Immunization Up to Date: Yes - Suicide/Smoking/Psychosocial Hx Smoking Status: No Smoking History: Former smoker Years of Tobacco Use: 50 Have you smoked in the past 12 months: No Number of Cigarettes Smoked Daily: 30 If you are a former smoker, when did you quit?: 2009 Cigars Per Day: 0 Information on smoking cessation initiated: No Hx Alcohol Use: No Drug/Substance Use Hx: No Substance Use Type: None Hx Substance Use Treatment: No <Suhas Marcos - Last Filed: 08/02/18 11:58> - Past Medical History Allergies/Adverse Reactions: Allergies Allergy/AdvReac Type Severity Reaction Status Date / Time No Known Allergies Allergy Verified 08/01/18 16:11 Home Medications: Ambulatory Orders Ascorbate Calcium [Vitamin C] 500 mg PO DAILY 01/20/14 Aspirin [ASA -] 81 mg PO DAILY 01/20/14 Carvedilol 3.125 mg PO BID 01/20/14 Clopidogrel Bisulfate [Plavix -] 75 mg PO DAILY 01/20/14 Folic Acid - 1 mg PO DAILY 01/20/14 Pregabalin [Lyrica -] 50 mg PO HS 01/20/14 Ranitidine HCl [Zantac] 150 mg PO HS 01/20/14 Tamsulosin HCl [Flomax -] 0.4 mg PO HS 01/20/14 Magnesium 250 mg PO DAILY 10/25/15 Levothyroxine [Synthroid -] 75 mcg PO MOTUWETH 07/21/16 Losartan Potassium [Cozaar -] 25 mg PO DAILY #90 tablet 09/02/16 Ergocalciferol (Vitamin D2) [Vitamin D2] 2,000 unit PO DAILY 06/09/17 Finasteride 0.05 mg PO DAILY 06/09/17 Furosemide [Lasix -] 20 mg PO DAILY 06/09/17 Insulin Glargine,Hum.rec.anlog [Lantus (10mL VIAL) -] 10 units SQ HS 06/09/17 Multivit-Min/FA/Lycopen/Lutein [Centrum Silver Tablet] 1 tab PO DAILY 06/09/17 Rosuvastatin Calcium 10 mg PO HS 06/09/17 Review of Systems - Review of Systems Able to Perform ROS?: Yes Is the patient limited Brazilian proficient: No Constitutional: Yes: Weakness. No: Chills, Diaphoresis, Fever HEENTM: No: Recent change in vision, Ear Pain, Nose Pain, Throat Pain, Mouth Pain Respiratory: No: Cough, Shortness of Breath, SOB with Exertion, Hemoptysis Cardiac (ROS): No: Chest Pain, Lightheadedness, Palpitations, Syncope, Chest Tightness ABD/GI: No: Constipated, Diarrhea, Nausea, Poor Appetite, Poor Fluid Intake, Rectal Bleeding, Vomiting, Tarry Stools : No: Burning, Dysuria, Hematuria, Urgency Musculoskeletal: Yes: Back Pain (right lower back), Muscle Pain. No: Joint Pain , Neck Pain Integumentary: No: Dryness, Erythema, Lesions, Lumps, Rash Neurological: No: Headache, Numbness, Tremors, Ataxia, Dizziness Psychiatric: No: Change in Appetite Endocrine: No: Unexplained Weight Gain Hematologic/Lymphatic: No: Anemia <Suhas Marcos - Last Filed: 08/02/18 11:58> *Physical Exam - Vital Signs Last Vital Signs Temp Pulse Resp BP Pulse Ox 97.2 F L 66 18 103/56 L 99 08/01/18 16:12 08/01/18 16:12 08/01/18 16:12 08/01/18 16:12 08/01/18 16:12 <Maria C Childers - Last Filed: 08/01/18 20:32> - Vital Signs Last Vital Signs Temp Pulse Resp BP Pulse Ox 97.2 F L 66 18 103/56 L 99 08/01/18 16:12 08/01/18 16:12 08/01/18 16:12 08/01/18 16:12 08/01/18 16:12 - Physical Exam General Appearance: Yes: Nourished, Appropriately Dressed. No: Apparent Distress, Intoxicated HEENT: positive: EOMI, SHERI, Normal Voice, Symmetrical, Pharynx Normal, Hearing Grossly Normal. negative: Pale Conjunctivae, Scleral Icterus (R), Scleral Icterus (L), Muffled/Hoarse voice, Pharyngeal Erythema, Tonsillar Exudate, Tonsillar Erythema, Nasal Congestion, Rhinorrhea, Excessive drooling Neck: positive: Trachea midline. negative: Tender, Lymphadenopathy (R), Lymphadenopathy (L), Tender lateral, Tender midline Respiratory/Chest: positive: Lungs Clear, Normal Breath Sounds. negative: Chest Tender, Respiratory Distress, Accessory Muscle Use, Crackles, Rales, Stridor, Wheezing, Hyperresonant, Dullness Cardiovascular: positive: Regular Rhythm, Regular Rate, S1, S2. negative: Systolic Murmur Gastrointestinal/Abdominal: positive: Normal Bowel Sounds, Flat, Soft. negative : Tender, Rebound, Tenderness, Hernia Lymphatic: negative: Adenopathy Musculoskeletal: positive: Normal Inspection, CVA Tenderness (R), Other (right paravertebral tenderness). negative: CVA Tenderness (L), Vertebral Tenderness Extremity: positive: Normal Capillary Refill, Normal Inspection, Normal Range of Motion. negative: Tender, Swelling, Calf Tenderness Integumentary: positive: Normal Color, Dry, Warm. 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 negative: EOM Palsy, Facial Droop , Sensory Deficit <Suhas Marcos - Last Filed: 08/02/18 11:58> Moderate Sedation - Procedure Monitoring Vital Signs: Procedure Monitoring Vital Signs Temperature 97.2 F L 08/01/18 16:12 Pulse Rate 66 08/01/18 16:12 Respiratory Rate 18 08/01/18 16:12 Blood Pressure 103/56 L 08/01/18 16:12 O2 Sat by Pulse Oximetry (%) 99 08/01/18 16:12 <Maria C Childers - Last Filed: 08/01/18 20:32> - Procedure Monitoring Vital Signs: Procedure Monitoring Vital Signs Temperature 97.2 F L 08/01/18 16:12 Pulse Rate 66 08/01/18 16:12 Respiratory Rate 18 08/01/18 16:12 Blood Pressure 103/56 L 08/01/18 16:12 O2 Sat by Pulse Oximetry (%) 99 08/01/18 16:12 <Suhas Marcos - Last Filed: 08/02/18 11:58> ED Treatment Course - LABORATORY CBC & Chemistry Diagram: 08/01/18 19:44 08/01/18 19:44 - ADDITIONAL ORDERS Additional order review: 08/01/18 19:44 RBC 2.86 L MCV 101.7 H MCHC 33.6 RDW 14.6 MPV 9.6 Neutrophils % 76.1 Lymphocytes % 9.4 Monocytes % 9.8 Eosinophils % 3.6 Basophils % 1.1 <Maria C Childers - Last Filed: 08/01/18 20:32> - LABORATORY CBC & Chemistry Diagram: 08/02/18 06:52 08/02/18 06:52 <Suhas Marcos - Last Filed: 08/02/18 11:58> Medical Decision Making - Medical Decision Making 88 yo M with a hx of CAD s/p CABG and defibrillator (2009), peripheral arterial disease (multiple bypasses, partial left foot amputation), IDDM, and hypothyroidism presents to the emergency department with right lower back pain that has been ongoing for 3 days. Initial vitals: Initial Vital Signs Temp Pulse Resp BP Pulse Ox 97.2 F L 66 18 103/56 L 99 08/01/18 16:12 08/01/18 16:12 08/01/18 16:12 08/01/18 16:12 08/01/18 16:12 Work up: ddx: muscular strain vs vertebral fracture vs dislocation vs sciatica vs pyelonephritis vs colitis vs AAA will order abdomen and pelvis without contrast as well as left shoulder xray. Interventions: robaxin and IV tylenol Laboratory Tests 08/01/18 08/01/18 19:44 19:44 WBC 5.2 RBC 2.86 L Hgb 9.8 L Hct 29.1 L MCV 101.7 H MCH 34.2 H MCHC 33.6 RDW 14.6 Plt Count 111 L MPV 9.6 Absolute Neuts (auto) 4.0 Neutrophils % 76.1 Lymphocytes % 9.4 Monocytes % 9.8 Eosinophils % 3.6 Basophils % 1.1 Nucleated RBC % 0 Sodium 139 Potassium 5.2 H Chloride 106 Carbon Dioxide 28 Anion Gap 5 L BUN 61 H Creatinine 1.8 H Creat Clearance w eGFR 35.87 Random Glucose 106 Calcium 8.5 Total Bilirubin 0.6 AST 21 ALT 26 Alkaline Phosphatase 133 H Total Protein 7.2 Albumin 3.1 L patient has low hemoglobin, elevated creatinine however this is the patient's usual ranges from previous labs. pending abdomen pelvis CT and shoulder xray. Patient will be signed out to Dr. Ramos <Suhas Marcos - Last Filed: 08/02/18 11:58> *DC/Admit/Observation/Transfer <Maria C Childers - Last Filed: 08/01/18 20:32> <Suhas Marcos - Last Filed: 08/02/18 11:58> Diagnosis at time of Disposition: Muscle strain, Pleural effusion, Pericardial effusion - Discharge Dispostion Condition at time of disposition: Fair
[2018-08-01 20:07] LABS: BASO % 1.1 % (0-2.0); EOS % 3.6 % (0-4.5); HEMATOCRIT 29.1 % (35.4-49); HEMOGLOBIN 9.8 GM/dL (11.7-16.9); LYMPH % 9.4 % (8-40); MCH 34.2 pg (25.7-33.7); MCHC 33.6 g/dl (32.0-35.9); MEAN CELL VOLUME 101.7 fl (80-96); MEAN PLT VOLUME 9.6 fl (7.5-11.1); MONO % 9.8 % (3.8-10.2); NEUT % 76.1 % (42.8-82.8); PLATELET COUNT 111 K/MM3 (134-434); RBC 2.86 M/mm3 (4.00-5.60); RDW 14.6 % (11.9-15.9); WHITE BLOOD COUNT 5.2 K/mm3 (4.0-10.0)
[2018-08-01] MEDS ORDERED: ACETAMINOPHEN 1000 MG/100 ML VIAL (NON FORMULARY) IVPB ONE (20:19)
[2018-08-01] MEDS ORDERED: METHOCARBAMOL 500 MG TABLET PO ONE (20:19)
[2018-08-01] MEDS ORDERED: ACETAMINOPHEN INJECTION 100 ML IVPB ONE (20:28)
[2018-08-01] MEDS ORDERED: METHOCARBAMOL 500 MG TABLET ONE (20:28)
[2018-08-01 20:44] LABS: ALBUMIN 3.1 g/dl (3.4-5.0); ALK PHOS 133 U/L (45-117); ANION GAP 5 MMOL/L (8-16); BILIRUBIN,TOTAL 0.6 mg/dL (0.2-1); BLOOD UREA NITROGEN 61 mg/dL (7-18); CALCIUM 8.5 mg/dL (8.5-10.1); CHLORIDE 106 mmol/L (98-107); CO2 28 mmol/L (21-32); CREATININE 1.8 mg/dL (0.55-1.3); GLUCOSE,RANDOM 106 mg/dL (74-106); POTASSIUM 5.2 mmol/L (3.5-5.1); SGOT/AST 21 U/L (15-37); SGPT/ALT 26 U/L (13-61); SODIUM 139 mmol/L (136-145); TOT PROT 7.2 g/dl (6.4-8.2)
--- NOTE | 2018-08-02 00:31 | PDOC ---
*Physical Exam - Vital Signs Last Vital Signs Temp Pulse Resp BP Pulse Ox 97.2 F L 66 18 103/56 L 99 08/01/18 16:12 08/01/18 16:12 08/01/18 16:12 08/01/18 16:12 08/01/18 16:12 - Physical Exam Comments: GENERAL: Awake, alert, and fully oriented, in no acute distress HEAD: No signs of trauma, normocephalic, atraumatic EYES: PERRLA, EOMI, sclera anicteric, conjunctiva clear NEUROLOGICAL: Cranial nerves II through XII grossly intact. Normal speech, no focal sensorimotor deficits SKIN: Warm, Dry ED Treatment Course - LABORATORY CBC & Chemistry Diagram: 08/02/18 06:52 08/02/18 06:52 - ADDITIONAL ORDERS Additional order review: Laboratory Results 08/01/18 19:44 Sodium 139 Potassium 5.2 H Chloride 106 Carbon Dioxide 28 Anion Gap 5 L BUN 61 H Creatinine 1.8 H Creat Clearance w eGFR 35.87 Random Glucose 106 Calcium 8.5 Total Bilirubin 0.6 AST 21 ALT 26 Alkaline Phosphatase 133 H Total Protein 7.2 Albumin 3.1 L 08/01/18 19:44 RBC 2.86 L MCV 101.7 H MCHC 33.6 RDW 14.6 MPV 9.6 Neutrophils % 76.1 Lymphocytes % 9.4 Monocytes % 9.8 Eosinophils % 3.6 Basophils % 1.1 - Medications Given in the ED: ED Medications Discontinued Medications Generic Name Dose Route Start Last Admin Trade Name Freq PRN Reason Stop Dose Admin Acetaminophen 1,000 mg 08/01/18 20:19 08/01/18 20:32 Ofirmev Injection - IVPB 08/01/18 20:20 1,000 mg ONCE ONE Administration Methocarbamol 500 mg 08/01/18 20:19 08/01/18 20:33 Robaxin - PO 08/01/18 20:20 500 mg ONCE ONE Administration Medical Decision Making - Medical Decision Making Received sign out from Dr. Marcos who discussed the presentation, work up, and plan thus far. CT A&P read: IMPRESSION: 1. Bilateral pleural effusions and lower lobe atelectasis, right greater than left. 2. Cardiomegaly and small pericardial effusion. 3. No evidence urinary tract calculi, mass lesions or obstructive uropathy. 4. Bilateral renal cortical atrophy with vascular calcification. 5. Prostatic enlargement with thickening of the urinary bladder suspicious for chronic outlet obstruction. 6. Trace free pelvic fluid. Please see above discussion. ECG w/ paced rhythm, HR 66, no change from previous 08/02/18 01:17 Plan for admission for ECHO given pericardial effusion Plan discussed w/ patient who is in agreement and verbalizes understanding Dispo: admit *DC/Admit/Observation/Transfer Diagnosis at time of Disposition: Muscle strain, Pleural effusion, Pericardial effusion - Discharge Dispostion Condition at time of disposition: Fair Decision to Admit order: Yes - Referrals - Patient Instructions - Post Discharge Activity
[2018-08-02 01:51] LABS: URINE APPEARANCE CLOUDY; URINE BILIRUBIN NEGATIVE (<2.0 mg/dL); URINE COLOR YELLOW; URINE GLUCOSE (UA) NEGATIVE (NEGATIVE); URINE KETONE NEGATIVE (NEGATIVE); URINE LEUK ESTERASE 3+ (NEGATIVE); URINE NITRITE POSITIVE (NEGATIVE); URINE PROTEIN 1+ (NEGATIVE); URINE UROBILINOGEN NEGATIVE mg/dL (0.2-1.0)
[2018-08-02 01:58] LABS: EPI CELLS MANY /HPF (FEW); URINE BACTERIA RARE /hpf (NONE SEEN)
[2018-08-02] MEDS: LEVOTHYROXINE NA 75 MCG TABLET (FP) PO SCH (07:07)
[2018-08-02 07:46] LABS: BASO % 1.1 % (0-2.0); HEMATOCRIT 28.7 % (35.4-49); HEMOGLOBIN 9.9 GM/dL (11.7-16.9); LYMPH % 11.9 % (8-40); MCH 34.7 pg (25.7-33.7); MCHC 34.7 g/dl (32.0-35.9); MEAN CELL VOLUME 99.9 fl (80-96); MEAN PLT VOLUME 9.5 fl (7.5-11.1); MONO % 10.5 % (3.8-10.2); NEUT % 72.5 % (42.8-82.8); PLATELET COUNT 111 K/MM3 (134-434); RBC 2.87 M/mm3 (4.00-5.60); RDW 14.9 % (11.9-15.9); WHITE BLOOD COUNT 4.7 K/mm3 (4.0-10.0)
[2018-08-02 08:25] LABS: ALK PHOS 133 U/L (45-117); ANION GAP 9 MMOL/L (8-16); BILIRUBIN,TOTAL 0.7 mg/dL (0.2-1); BLOOD UREA NITROGEN 56 mg/dL (7-18); CALCIUM 8.5 mg/dL (8.5-10.1); CHLORIDE 108 mmol/L (98-107); CO2 26 mmol/L (21-32); CREATININE 1.7 mg/dL (0.55-1.3); GLUCOSE,RANDOM 71 mg/dL (74-106); N-TERMINAL BNP 5946.1 pg/ml (5-450); POTASSIUM 4.7 mmol/L (3.5-5.1); SGOT/AST 17 U/L (15-37); SGPT/ALT 26 U/L (13-61); SODIUM 142 mmol/L (136-145); TOT PROT 6.9 g/dl (6.4-8.2)
--- NOTE | 2018-08-02 09:16 | HP ---
Admitting History and Physical - Primary Care Physician PCP: Joie Noonan S - Admission Chief Complaint: R Flank/ back pain, weakness, L sholder pain, SOB History of Present Illness: This patient is an 88 year old male, with PMHx of CAD s/p CABG (2009), PAD, partial let foot amputation, hyperthyroidism, IDDM, and BPH, who presents with 2 days of right-sided lower back pain. Patient denies any falls or trauma but does note that he has a history of chronic lower back pain, and normally ambulates with a walker but has limited mobility due to the worsening back pain. He describes the lower back pain as sharp, non-radiating, rates 10/10. Patient also notes that a couple of days ago he was trying to get into a wheelchair and twisted the wrong way hurting his left shoulder. His put on Bengay with some relief, she also put the Bengay on his lower back with no relief. 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 Nunez. Denies recent trauma, falls, dysuria, hematuria, frequency or other change in urination. h/o cancers. Denies any fevers, chills, nausea, vomiting, diarrhea, chest pain. Has some SOB at rest. History Source: Patient Limitations to Obtaining History: No Limitations - Past Medical History Cardiovascular: Yes: CAD (CABG), HTN, Mitral Insufficiency, Other (ICD for induced ventricular tachycardia) Pulmonary: Yes: COPD Gastrointestinal: Yes: Other (recent C diff colitis, gallstones, chronic cholecystitis) Renal/: Yes: Renal Failure (had ARF last month in September creat bumped to 2), BPH, Renal Calculi Heme/Onc: Yes: Anemia Infectious Disease: Yes: C-Diff Musculoskeletal: Yes: Other (L foot wound s/p partial amputation) Endocrine: Yes: Diabetes Mellitus, Other (diabetic neuropathy) - Past Surgical History Past Surgical History: Yes: AICD, Amputation (TMA), Bypass, CABG - Smoking History Smoking history: Former smoker Have you smoked in the past 12 months: No Aproximately how many cigarettes per day: 30 If you are a former smoker, when did you quit?: 2009 - Alcohol/Substance Use Hx Alcohol Use: No History of Substance Use: reports: None - Social History Usual Living Arrangement: Yes: With Spouse ADL: Family Assistance History of Recent Travel: No Home Medications - Allergies Allergies/Adverse Reactions: Allergies Allergy/AdvReac Type Severity Reaction Status Date / Time No Known Allergies Allergy Verified 08/01/18 16:11 - Home Medications Home Medications: Ambulatory Orders Ascorbate Calcium [Vitamin C] 500 mg PO DAILY 01/20/14 Aspirin [ASA -] 81 mg PO DAILY 01/20/14 Carvedilol 3.125 mg PO BID 01/20/14 Clopidogrel Bisulfate [Plavix -] 75 mg PO DAILY 01/20/14 Folic Acid - 1 mg PO DAILY 01/20/14 Pregabalin [Lyrica -] 50 mg PO HS 01/20/14 Ranitidine HCl [Zantac] 150 mg PO HS 01/20/14 Tamsulosin HCl [Flomax -] 0.4 mg PO HS 01/20/14 Magnesium 250 mg PO DAILY 10/25/15 Levothyroxine [Synthroid -] 75 mcg PO MOTUWETH 07/21/16 Losartan Potassium [Cozaar -] 25 mg PO DAILY #90 tablet 09/02/16 Ergocalciferol (Vitamin D2) [Vitamin D2] 2,000 unit PO DAILY 06/09/17 Finasteride 0.05 mg PO DAILY 06/09/17 Furosemide [Lasix -] 20 mg PO DAILY 06/09/17 Insulin Glargine,Hum.rec.anlog [Lantus (10mL VIAL) -] 10 units SQ HS 06/09/17 Multivit-Min/FA/Lycopen/Lutein [Centrum Silver Tablet] 1 tab PO DAILY 06/09/17 Rosuvastatin Calcium 10 mg PO HS 06/09/17 Family Disease History - Family Disease History Family Disease History: Heart Disease: Mother, Brother (liver [place]), [place]: Brother Review of Systems - Review of Systems Constitutional: reports: Unintentional Wgt. Loss, Weakness (general). denies: Chills, Fever Eyes: denies: Blind Spots, Blurred Vision, Double Vision, Eye Pain HENT: denies: Difficult Swallowing, Epistaxis Neck: denies: Stiffness, Tenderness Cardiovascular: reports: Shortness of Breath. denies: Chest Pain, Edema, Palpitations Respiratory: reports: SOB, SOB on Exertion. denies: Cough, Hemoptysis, Wheezing Gastrointestinal: denies: Abdominal Pain, Constipation, Diarrhea, Vomiting Genitourinary: reports: Dysuria (difficulty urinating), Flank Pain (R sided) Musculoskeletal: reports: Back Pain. denies: Extremity Pain Integumentary: denies: Eczema, Rash Neurological: reports: Unsteady Gait. denies: Change in LOC, Change in Speech, Confusion, Dizziness, Headache, Seizure, Syncope, Tremors Hematology/Lymphatic: denies: Easily Bruised, Excessive Bleeding Psychiatric: denies: Anxiety, Depression, Suicidal Physical Examination Vital Signs: Vital Signs Temperature 98.5 F 08/02/18 06:17 Pulse Rate 69 08/02/18 06:17 Respiratory Rate 19 08/02/18 06:17 Blood Pressure 132/47 L 08/02/18 06:17 O2 Sat by Pulse Oximetry (%) 100 08/02/18 06:17 Constitutional: Yes: No Distress, Calm Eyes: Yes: Conjunctiva Clear HENT: Yes: Atraumatic Neck: Yes: Supple Cardiovascular: Yes: Regular Rate and Rhythm Respiratory: Yes: Diminished Gastrointestinal: Yes: Soft. No: Tenderness Renal/: No: CVA Tenderness - Left, CVA Tenderness - Right, Hematuria Musculoskeletal: No: Joint Stiffness, Joint Swelling Extremities: Yes: Amputation (partial, L foot). No: Cold, Cool Edema: No Integumentary: Yes: Pressure Ulcer. No: Rash, Venous Stasis Changes Neurological: Yes: WNL, Alert ...Motor Strength: WNL Psychiatric: Yes: WNL, Alert. No: Agitated, Suicidal Ideation Labs: CBC, BMP 08/02/18 06:52 08/02/18 06:52 Imaging - Results Chest X-ray: Report Reviewed Other: Report Reviewed Assessment/Plan This patient is an 88 year old male, with PMHx of CAD s/p CABG (2009), PAD, partial let foot amputation, hyperthyroidism, IDDM, and BPH, who presents with 2 days of severe right-sided lower back pain Has some dysuria and many WBC/UA - will ask eval. Has some SOB at rest r/o CHF exac - cardiology eval iv lasix, IV ATB for UTI ortho eval for back and shoulder pain has some buttocks redness, L TMA site redness and few toes R foot redness/ superficial wounds; will ask vascular surgery to see pt falls decubs aspiration DVT PFX dw pt and staff; will call pt's
[2018-08-02] MEDS ORDERED: FOLIC ACID 1 MG TABLET (FP) ONE (09:43)
[2018-08-02] MEDS ORDERED: CARVEDILOL 3.125 MG TABLET (FP) ONE (09:43)
[2018-08-02] MEDS ORDERED: ASPIRIN 81 MG CHEWABLE TABLETS ONE (09:43)
[2018-08-02] MEDS ORDERED: MAGNESIUM OXIDE 400 MG TABLET (FP) ONE (09:45)
[2018-08-02] MEDS ORDERED: CLOPIDOGREL BISULFATE 75 MG TABLET (FP) ONE (09:45)
[2018-08-02] MEDS ORDERED: FUROSEMIDE 40 MG/4 ML INJECTABLE VIAL ONE (09:46)
[2018-08-02] MEDS: ASPIRIN 81 MG CHEWABLE TABLETS PO SCH (09:47)
[2018-08-02] MEDS: MAGNESIUM OXIDE 400 MG TABLET (FP) PO SCH (09:47)
[2018-08-02] MEDS: CLOPIDOGREL BISULFATE 75 MG TABLET (FP) PO SCH (09:47)
[2018-08-02] MEDS: CARVEDILOL 3.125 MG TABLET (FP) PO SCH ×2 (09:47→21:58)
[2018-08-02] MEDS: FUROSEMIDE 40 MG/4 ML INJECTABLE VIAL IVPUSH SCH (09:47)
[2018-08-02] MEDS: FOLIC ACID 1 MG TABLET (FP) PO SCH (09:47)
[2018-08-02] MEDS: LOSARTAN POTASSIUM 25 MG TABLET PO SCH (09:47)
[2018-08-02] MEDS: MULTIVITAMINS THER W-MINERALS COMBO TABLET (FP) PO SCH (10:05)
[2018-08-02] MEDS: CHOLECALCIFEROL (VITAMIN D3) 1,000 UNIT TABLET (FP) PO SCH (10:05)
[2018-08-02] MEDS: ASCORBIC ACID 500 MG TABLET (FP) PO SCH (10:05)
--- NOTE | 2018-08-02 11:10 | CON.CARD ---
Consult Consult Specialty:: Cardiology Referred by:: Joie Noonan MD Reason for Consultation:: Bilateral pleural effusions R>L - History of Present Illness Chief Complaint: Left shoulder and lower back pain History of Present Illness: Patient is an 88 year old male with underlying history of CAD, CABG, PCI/stent, LV systolic dysfunction S/P ICD (Medtronic) for induced ventricular tachycardia most recent interrogation 06/27/2018, HTN, insulin dependent Type 2 diabetes mellitus, PAD with multiple revascularization and amputation, CKD and carotid stenosis presented with left shoulder and lower back pain after attempting to pivot into wheelchair, noted to have bilateral pleural effusions R>L and small pericardial effusions, echocardiogram pending. He denies chest pain, dyspnea, palpitations, near or true syncope, orthopnea, PND or LE edema. He reports compliance with medications and diet. - History Source History Provided By: Patient Limitations to Obtaining History: No Limitations - Past Medical History Cardio/Vascular: Yes: CAD (CABG), HTN, Mitral Insufficiency, Other (ICD for induced ventricular tachycardia) Pulmonary: Yes: COPD Gastrointestinal: Yes: Other (recent C diff colitis, gallstones, chronic cholecystitis) Renal/: Yes: Renal Failure (had ARF last month in September creat bumped to 2), BPH, Renal Calculi Infectious Disease: Yes: C-Diff Musculoskeletal: Yes: Other (L foot wound s/p partial amputation) Endocrine: Yes: Diabetes Mellitus, Other (diabetic neuropathy) - Past Surgical History Past Surgical History: Yes: AICD, Amputation (TMA), Bypass, CABG - Alcohol/Substance Use Hx Alcohol Use: No History of Substance Use: reports: None - Smoking History Smoking history: Former smoker Have you smoked in the past 12 months: No Aproximately how many cigarettes per day: 30 If you are a former smoker, when did you quit?: 2009 - Social History Usual Living Arrangement: With Spouse ADL: Family Assistance History of Recent Travel: No Home Medications - Allergies Allergies/Adverse Reactions: Allergies Allergy/AdvReac Type Severity Reaction Status Date / Time No Known Allergies Allergy Verified 08/01/18 16:11 - Home Medications Home Medications: Ambulatory Orders Ascorbate Calcium [Vitamin C] 500 mg PO DAILY 01/20/14 Aspirin [ASA -] 81 mg PO DAILY 01/20/14 Carvedilol 3.125 mg PO BID 01/20/14 Clopidogrel Bisulfate [Plavix -] 75 mg PO DAILY 01/20/14 Folic Acid - 1 mg PO DAILY 01/20/14 Pregabalin [Lyrica -] 50 mg PO HS 01/20/14 Ranitidine HCl [Zantac] 150 mg PO HS 01/20/14 Tamsulosin HCl [Flomax -] 0.4 mg PO HS 01/20/14 Magnesium 250 mg PO DAILY 10/25/15 Levothyroxine [Synthroid -] 75 mcg PO MOTUWETH 07/21/16 Losartan Potassium [Cozaar -] 25 mg PO DAILY #90 tablet 09/02/16 Ergocalciferol (Vitamin D2) [Vitamin D2] 2,000 unit PO DAILY 06/09/17 Finasteride 0.05 mg PO DAILY 06/09/17 Furosemide [Lasix -] 20 mg PO DAILY 06/09/17 Insulin Glargine,Hum.rec.anlog [Lantus (10mL VIAL) -] 10 units SQ HS 06/09/17 Multivit-Min/FA/Lycopen/Lutein [Centrum Silver Tablet] 1 tab PO DAILY 06/09/17 Rosuvastatin Calcium 10 mg PO HS 06/09/17 Family Disease History - Family Disease History Family Disease History: Heart Disease: Mother, Brother (liver [place]), [place]: Brother Review of Systems - Review of Systems Cardiovascular: reports: Other (Rest pain) Musculoskeletal: reports: Back Pain, Joint Pain Vital Signs: Vital Signs Temperature 98.5 F 08/02/18 06:17 Pulse Rate 69 08/02/18 06:17 Respiratory Rate 19 08/02/18 06:17 Blood Pressure 132/47 L 08/02/18 06:17 O2 Sat by Pulse Oximetry (%) 100 08/02/18 06:17 Constitutional: Yes: No Distress, Calm, Thin Neck: Yes: Supple Respiratory: Yes: Regular, Diminished Gastrointestinal: Yes: Soft, Hypoactive Bowel Sounds Cardiovascular: Yes: Regular Rate and Rhythm JVD: No Carotid Bruit: No Heart Sounds: Yes: S1, S2 Murmur: Yes: Systolic Murmur, Grade 1 Edema: No - Other Data Labs, Other Data: CBC, BMP 08/02/18 06:52 08/02/18 06:52 Troponin, BNP 08/02/18 08/02/18 03:54 06:52 Troponin I < 0.02 0.03 B-Natriuretic Peptide 5946.1 H Troponin, BNP 08/02/18 08/02/18 03:54 06:52 Troponin I < 0.02 0.03 B-Natriuretic Peptide 5946.1 H V-paced @ 66 Problem List - Problems (1) Muscle strain Code(s): T14.8XXA - OTHER INJURY OF UNSPECIFIED BODY REGION, INITIAL ENCOUNTER (2) Pericardial effusion Code(s): I31.3 - PERICARDIAL EFFUSION (NONINFLAMMATORY) (3) Pleural effusion Code(s): J90 - PLEURAL EFFUSION, NOT ELSEWHERE CLASSIFIED (4) ASHD (arteriosclerotic heart disease) Code(s): I25.10 - ATHSCL HEART DISEASE OF [place] CORONARY ARTERY W/O ANG PCTRS (5) Anemia Code(s): D64.9 - ANEMIA, UNSPECIFIED Qualifiers: Anemia type: unspecified type Qualified Code(s): D64.9 - Anemia, unspecified (6) CKD (chronic kidney disease) Code(s): N18.9 - CHRONIC KIDNEY DISEASE, UNSPECIFIED Qualifiers: Chronic kidney disease stage: stage 3 (moderate) Qualified Code(s): N18.3 - Chronic kidney disease, stage 3 (moderate) (7) COPD (chronic obstructive pulmonary disease) Code(s): J44.9 - CHRONIC OBSTRUCTIVE PULMONARY DISEASE, UNSPECIFIED Qualifiers: COPD type: chronic bronchitis (8) Carotid artery disease Code(s): I77.9 - DISORDER OF ARTERIES AND ARTERIOLES, UNSPECIFIED Qualifiers: Laterality: unspecified laterality Qualified Code(s): I77.9 - Disorder of arteries and arterioles, unspecified (9) Diabetes mellitus Code(s): E11.9 - TYPE 2 DIABETES MELLITUS WITHOUT COMPLICATIONS Qualifiers: Diabetes mellitus type: type 2 Chronic kidney disease stage: stage 2 (mild ) (10) HTN (hypertension) Code(s): I10 - ESSENTIAL (PRIMARY) HYPERTENSION Qualifiers: Hypertension type: essential hypertension Qualified Code(s): I10 - Essential (primary) hypertension (11) Hx of CABG Code(s): Z95.1 - PRESENCE OF AORTOCORONARY BYPASS GRAFT (12) Hypercholesterolemia Code(s): E78.0 - PURE HYPERCHOLESTEROLEMIA * DO NOT USE * (13) ICD (implantable cardioverter-defibrillator) in place Code(s): Z95.810 - PRESENCE OF AUTOMATIC (IMPLANTABLE) CARDIAC DEFIBRILLATOR (14) Peripheral arterial disease Code(s): I73.9 - PERIPHERAL VASCULAR DISEASE, UNSPECIFIED (15) Chronic systolic heart failure Code(s): I50.22 - CHRONIC SYSTOLIC (CONGESTIVE) HEART FAILURE Assessment/Plan 07/21/2016 Echo: Moderate dilated with mild-mod decreased LV fxn, pacer RV, mild LAE, mod MR, mild TR 08/01/[address]: Mod bilateral effusions R>L, small pericardial effusions 1. Chronic LV systolic failure with pleural effusions referable to dietary indiscretion resolving 2. CAD post CABG, angina pectoris 3. HTN 4. Insulin-dependent Type 2 DM 5. Hypercholesterolemia 6. 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 Carotid stenosis 8. PAD post [employer] and amputation (TMA) with rest pain 9. Left shoulder and lower back pain after pivot into wheelchair referable to musculoskeletal strain 10. CKD PLAN: 1. Continue IV diuretics with close monitoring of diuretic response, renal function and electrolytes 2. Continue ASA 81 qd, Plavix 75 qd, Carvedilol 3.125 bid, losartan 25 qd and Crestor 10 qhs 3. Addressed importance of dietary and medication compliance, analgesia as needed 4. F/u repeat echo results already ordered 5. Thank you for consultative opportunity
--- NOTE | 2018-08-02 11:55 | EKG ---
Test Reason : Blood Pressure : / mmHG Vent. Rate : 066 BPM Atrial Rate : 066 BPM P-R Int : 000 ms QRS Dur : 178 ms QT Int : 498 ms P-R-T Axes : 000 -68 092 degrees QTc Int : 522 ms Ventricular-paced rhythm WITH OCCASIONAL PREMATURE VENTRICULAR COMPLEXES ABNORMAL ECG WHEN COMPARED WITH ECG OF 09-JUN-2017 15:10, PREMATURE VENTRICULAR COMPLEXES ARE NOW PRESENT VENT. RATE HAS DECREASED BY 3 BPM Confirmed by HANNA BURNS MD ([id number]) on 08/02/2018 11:55:08 AM Referred By: Confirmed By:HANNA BURNS MD
--- NOTE | 2018-08-02 15:07 | ECHO ---
Name: CHASTITY LAUGHLIN, SR Exam:Adult Echocardiogram Study Date: 08/02/2018 10:47 AM Age: 88 yrs Reason For Study: Pericardial Effusion Height: 70 in Weight: 159 lb BSA: 1.9 m2 MMode/2D Measurements & Calculations IVSd: 1.1 cm Ao root diam: 3.1 cm LVIDd: 5.8 cm LA dimension: 3.8 cm LVIDs: 5.1 cm LVPWd: 0.91 cm EDV(Teich): 166.9 ml LAV (MOD-bp): 88.6 ml ESV(Teich): 123.0 ml Doppler Measurements & Calculations MR max heber: 472.1 cm/sec TR max heber: 307.4 cm/sec MR max P.2 mmHg TR max P.2 mmHg Med Peak E' Heber: 4.6 cm/sec PI Vmax: 246.4 cm/sec Lat Peak E' Heber: 4.8 cm/sec Procedure A complete two-dimensional transthoracic echocardiogram was performed (2D, M-mode, Doppler and color flow Doppler). Left Ventricle The left ventricle is normal in size. Left ventricular systolic function is mild to moderately reduce d. Ejection Fraction = 40-45%. There is mild to moderate global hypokinesis of the left ventricle. Right Ventricle The right ventricle is normal in size and function. Atria The left atrium is mildly dilated. Right atrial size is normal. Mitral Valve There is moderate mitral regurgitation. Tricuspid Valve There is trace tricuspid regurgitation. There is mild pulmonary hypertension. Aortic Valve The aortic valve is trileaflet. No hemodynamically significant valvular aortic stenosis. Trace aortic regurgitation. Pulmonic Valve Trace pulmonic valvular regurgitation. Great Vessels The aortic root is normal size. Pericardium/Pleura There is no pericardial effusion. Interpretation Summary Left ventricular systolic function is mild to moderately reduced. There is mild to moderate global hypokinesis of the left ventricle. The right ventricle is normal in size and function. The left atrium is mildly dilated. There is moderate mitral regurgitation. There is trace tricuspid regurgitation. There is mild pulmonary hypertension. Trace aortic regurgitation. Trace pulmonic valvular regurgitation. MD Don Marie 08/02/2018 03:06 PM
--- NOTE | 2018-08-02 15:28 | CON.GU ---
Consult Consult Specialty:: Referred by:: Medicine Reason for Consultation:: BPH UTI - History of Present Illness Chief Complaint: BPH UTI History of Present Illness: 88 year old male with h/o BPH who presents with a UTI and BPH on CT scan. - History Source History Provided By: Patient, Medical Record Limitations to Obtaining History: No Limitations - Past Medical History Cardio/Vascular: Yes: CAD (CABG), HTN, Mitral Insufficiency, Other (ICD for induced ventricular tachycardia) Pulmonary: Yes: COPD Gastrointestinal: Yes: Other (recent C diff colitis, gallstones, chronic cholecystitis) Renal/: Yes: Renal Failure (had ARF last month in September creat bumped to 2), BPH, Renal Calculi Infectious Disease: Yes: C-Diff Musculoskeletal: Yes: Other (L foot wound s/p partial amputation) Endocrine: Yes: Diabetes Mellitus, Other (diabetic neuropathy) - Past Surgical History Past Surgical History: Yes: AICD, Amputation (TMA), Bypass, CABG - Alcohol/Substance Use Hx Alcohol Use: No History of Substance Use: reports: None - Smoking History Smoking history: Former smoker Have you smoked in the past 12 months: No Aproximately how many cigarettes per day: 30 If you are a former smoker, when did you quit?: 2009 - Social History Usual Living Arrangement: With Spouse ADL: Family Assistance History of Recent Travel: No Home Medications - Allergies Allergies/Adverse Reactions: Allergies Allergy/AdvReac Type Severity Reaction Status Date / Time No Known Allergies Allergy Verified 08/01/18 16:11 - Home Medications Home Medications: Ambulatory Orders Ascorbate Calcium [Vitamin C] 500 mg PO DAILY 01/20/14 Aspirin [ASA -] 81 mg PO DAILY 01/20/14 Carvedilol 3.125 mg PO BID 01/20/14 Clopidogrel Bisulfate [Plavix -] 75 mg PO DAILY 01/20/14 Folic Acid - 1 mg PO DAILY 01/20/14 Pregabalin [Lyrica -] 50 mg PO HS 01/20/14 Ranitidine HCl [Zantac] 150 mg PO HS 01/20/14 Tamsulosin HCl [Flomax -] 0.4 mg PO HS 01/20/14 Magnesium 250 mg PO DAILY 10/25/15 Levothyroxine [Synthroid -] 75 mcg PO MOTUWETH 07/21/16 Losartan Potassium [Cozaar -] 25 mg PO DAILY #90 tablet 09/02/16 Ergocalciferol (Vitamin D2) [Vitamin D2] 2,000 unit PO DAILY 06/09/17 Finasteride 0.05 mg PO DAILY 06/09/17 Furosemide [Lasix -] 20 mg PO DAILY 06/09/17 Insulin Glargine,Hum.rec.anlog [Lantus (10mL VIAL) -] 10 units SQ HS 06/09/17 Multivit-Min/FA/Lycopen/Lutein [Centrum Silver Tablet] 1 tab PO DAILY 06/09/17 Rosuvastatin Calcium 10 mg PO HS 06/09/17 Family Disease History - Family Disease History Family Disease History: Heart Disease: Mother, Brother (liver [place]), [place]: Brother Review of Systems - Review of Systems Genitourinary: reports: Dysuria Physical Exam- Vital Signs: Vital Signs Temperature 97.9 F 08/02/18 13:40 Pulse Rate 72 08/02/18 13:40 Respiratory Rate 20 08/02/18 13:40 Blood Pressure 122/63 08/02/18 13:40 O2 Sat by Pulse Oximetry (%) 100 08/02/18 06:17 Gastrointestinal: Yes: Soft Renal/: No: CVA Tenderness - Left, CVA Tenderness - Right, [place] Present, Hematuria Labs: CBC, BMP 08/02/18 06:52 08/02/18 06:52 Imaging - Results Cat Scan: Report Reviewed Problem List - Problems (1) Benign localized hyperplasia of prostate with urinary obstruction Assessment/Plan: pt is voiding. flomax and abx. Code(s): N40.1 - BENIGN PROSTATIC HYPERPLASIA WITH LOWER URINARY TRACT SYMP; N13.8 - OTHER OBSTRUCTIVE AND REFLUX UROPATHY (2) UTI (lower urinary tract infection) Code(s): N39.0 - URINARY TRACT INFECTION, SITE NOT SPECIFIED
[2018-08-02] MEDS: CEFAZOLIN 1 GM/D5W 1 GM/50 ML BAG IVPB SCH (17:37)
[2018-08-02] MEDS: TAMSULOSIN HCL 0.4 MG CAP PO SCH (21:58)
[2018-08-02] MEDS: RANITIDINE HCL 150 MG TABLET (FP) PO SCH (21:58)
[2018-08-02] MEDS: ROSUVASTATIN CA 10 MG TABLET (FP) PO SCH (21:58)
[2018-08-02] MEDS: PREGABALIN 50 MG CAPSULE PO SCH (21:58)
[2018-08-02] MEDS: INSULIN (LEVEMIR) 100 UNITS/ML UNITS SQ SCH (21:59)
[2018-08-02] MEDS: BACITRACIN 15 GM TUBE TOPICAL OINTMENT TP SCH (21:59)
[2018-08-03] MEDS: CEFAZOLIN 1 GM/D5W 1 GM/50 ML BAG IVPB SCH ×3 (01:32→17:23)
--- NOTE | 2018-08-03 05:42 | PN ---
Progress Note, Physician - Current Medication List Current Medications: Active Medications Ascorbic Acid (Vitamin C -) 500 mg PO DAILY [facility] Last Admin: 08/02/18 10:05 Dose: 500 mg Aspirin (Asa -) 81 mg PO DAILY [facility] Last Admin: 08/02/18 09:47 Dose: 81 mg Bacitracin (Bacitracin -) 1 applic TP BID [facility] Last Admin: 08/02/18 21:59 Dose: 1 applic Carvedilol (Coreg -) 3.125 mg PO BID [facility] Last Admin: 08/02/18 21:58 Dose: 3.125 mg Cholecalciferol (Vitamin D3 -) 2,000 unit PO DAILY [facility] Last Admin: 08/02/18 10:05 Dose: 2,000 unit Clopidogrel Bisulfate (Plavix -) 75 mg PO DAILY [facility] Last Admin: 08/02/18 09:47 Dose: 75 mg Finasteride (Proscar -) 5 mg PO DAILY [facility] Folic Acid (Folic Acid -) 1 mg PO DAILY [facility] Last Admin: 08/02/18 09:47 Dose: 1 mg Furosemide (Lasix Injection -) 40 mg IVPUSH DAILY [facility] Last Admin: 08/02/18 09:47 Dose: 40 mg Cefazolin Sodium (Ancef 1 Gm Premixed Ivpb -) 1 gm in 50 mls @ 100 mls/hr IVPB Q8H-IV [facility] Last Admin: 08/03/18 01:32 Dose: 100 mls/hr Insulin Detemir (Levemir Vial) [address] [facility] Last Admin: 08/02/18 21:59 Dose: 10 units Levothyroxine Sodium (Synthroid -) 75 mcg PO [id number] [facility] Last Admin: 08/02/18 07:07 Dose: 75 mcg Losartan Potassium (Cozaar -) 25 mg PO DAILY [facility] Last Admin: 08/02/18 09:47 Dose: 25 mg Magnesium Oxide (Mag-Ox -) 400 mg PO DAILY [facility] Last Admin: 08/02/18 09:47 Dose: 400 mg Multivitamins/Minerals (Theragran-M) 1 each PO DAILY [facility] Last Admin: 08/02/18 10:05 Dose: 1 each Pregabalin (Lyrica -) [address] [facility] Last Admin: 08/02/18 21:58 Dose: 50 mg Ranitidine HCl (Zantac -) [address] [facility] Last Admin: 01/17/19 21:58 Dose: 150 mg Rosuvastatin Calcium (Crestor -) [address] [facility] Last Admin: 08/02/18 21:58 Dose: 10 mg Tamsulosin HCl (Flomax -) 0.[address] [facility] Last Admin: 08/02/18 21:58 Dose: 0.4 mg - Objective Vital Signs: Vital Signs Temperature 98.2 F 08/03/18 02:00 Pulse Rate 72 08/03/18 02:00 Respiratory Rate 20 08/03/18 02:00 Blood Pressure 117/50 L 08/03/18 02:00 O2 Sat by Pulse Oximetry (%) 98 08/02/18 20:30 Labs: CBC, BMP 08/02/18 06:52 08/02/18 06:52
[2018-08-03] MEDS ORDERED: ACETAMINOPHEN 325 MG TABLET (FP) PO PRN (08:54)
[2018-08-03] MEDS ORDERED: PT OWN MED DRAWER 7, Y5N ONE ×2 (09:13→14:47)
[2018-08-03] MEDS: FINASTERIDE 5 MG TABLET (FP) PO SCH (09:16)
[2018-08-03] MEDS: LOSARTAN POTASSIUM 25 MG TABLET PO SCH (09:17)
[2018-08-03] MEDS: CHOLECALCIFEROL (VITAMIN D3) 1,000 UNIT TABLET (FP) PO SCH (09:17)
[2018-08-03] MEDS: FUROSEMIDE 40 MG/4 ML INJECTABLE VIAL IVPUSH SCH (09:17)
[2018-08-03] MEDS: CLOPIDOGREL BISULFATE 75 MG TABLET (FP) PO SCH (09:17)
[2018-08-03] MEDS: ASCORBIC ACID 500 MG TABLET (FP) PO SCH (09:22)
[2018-08-03] MEDS: ASPIRIN 81 MG CHEWABLE TABLETS PO SCH (09:22)
[2018-08-03] MEDS: MAGNESIUM OXIDE 400 MG TABLET (FP) PO SCH (09:22)
[2018-08-03] MEDS: BACITRACIN 15 GM TUBE TOPICAL OINTMENT TP SCH (09:22)
[2018-08-03] MEDS: FOLIC ACID 1 MG TABLET (FP) PO SCH (09:22)
[2018-08-03] MEDS: CARVEDILOL 3.125 MG TABLET (FP) PO SCH ×2 (09:22→21:31)
[2018-08-03] MEDS: MULTIVITAMINS THER W-MINERALS COMBO TABLET (FP) PO SCH (09:22)
--- NOTE | 2018-08-03 10:29 | PN ---
Progress Note, Physician History of Present Illness: Pt w/o fever, SOB, CP, palpitations, abd pain. Pt's back pain is better this am. - Current Medication List Current Medications: Active Medications Acetaminophen (Tylenol -) 650 mg PO Q6H PRN PRN Reason: PAIN 1-3 Ascorbic Acid (Vitamin C -) 500 mg PO DAILY [facility] Last Admin: 08/03/18 09:22 Dose: 500 mg Aspirin (Asa -) 81 mg PO DAILY [facility] Last Admin: 08/03/18 09:22 Dose: 81 mg Bacitracin (Bacitracin -) 1 applic TP BID [facility] Last Admin: 08/03/18 09:22 Dose: 1 applic Carvedilol (Coreg -) 3.125 mg PO BID [facility] Last Admin: 08/03/18 09:22 Dose: 3.125 mg Cholecalciferol (Vitamin D3 -) 2,000 unit PO DAILY [facility] Last Admin: 08/03/18 09:17 Dose: 2,000 unit Clopidogrel Bisulfate (Plavix -) 75 mg PO DAILY [facility] Last Admin: 08/03/18 09:17 Dose: 75 mg Finasteride (Proscar -) 5 mg PO DAILY [facility] Last Admin: 08/03/18 09:16 Dose: 5 mg Folic Acid (Folic Acid -) 1 mg PO DAILY [facility] Last Admin: 08/03/18 09:22 Dose: 1 mg Furosemide (Lasix Injection -) 40 mg IVPUSH DAILY [facility] Last Admin: 08/03/18 09:17 Dose: 40 mg Cefazolin Sodium (Ancef 1 Gm Premixed Ivpb -) 1 gm in 50 mls @ 100 mls/hr IVPB Q8H-IV [facility] Last Admin: 08/03/18 09:22 Dose: 100 mls/hr Insulin Aspart (Novolog Vial Sliding Scale -) 0 - 10 vial SQ ACHS [facility]; Protocol Insulin Detemir (Levemir Vial) 10 units SQ HS [facility] Last Admin: 08/02/18 21:59 Dose: 10 units Levothyroxine Sodium (Synthroid -) 75 mcg PO MoTuWeTh@0700 [facility] Last Admin: 08/02/18 07:07 Dose: 75 mcg Losartan Potassium (Cozaar -) 25 mg PO DAILY [facility] Last Admin: 08/03/18 09:17 Dose: 25 mg Magnesium Oxide (Mag-Ox -) 400 mg PO DAILY [facility] Last Admin: 08/03/18 09:22 Dose: 400 mg Multivitamins/Minerals (Theragran-M) 1 each PO DAILY [facility] Last Admin: 08/03/18 09:22 Dose: 1 each Pregabalin (Lyrica -) [address] [facility] Last Admin: 08/02/18 21:58 Dose: 50 mg Ranitidine HCl (Zantac -) [address] [facility] Last Admin: 08/02/18 21:58 Dose: 150 mg Rosuvastatin Calcium (Crestor -) [address] [facility] Last Admin: 08/02/18 21:58 Dose: 10 mg Tamsulosin HCl (Flomax -) 0.[address] [facility] Last Admin: 08/02/18 21:58 Dose: 0.4 mg - Objective Vital Signs: Vital Signs Temperature 97.4 F L 08/03/18 06:00 Pulse Rate 75 08/03/18 06:00 Respiratory Rate 08/03/18 09:00 Blood Pressure 124/66 08/03/18 06:00 O2 Sat by Pulse Oximetry (%) 94 L 08/03/18 09:00 Constitutional: Yes: No Distress, Calm Cardiovascular: Yes: Regular Rate and Rhythm, S1, S2 Respiratory: Yes: Regular, CTA Bilaterally. No: Rales Gastrointestinal: Yes: Normal Bowel Sounds, Soft. No: Tenderness Edema: No Neurological: Yes: Alert, Oriented Labs: CBC, BMP 08/02/18 06:52 08/02/18 06:52 - ....Imaging Other: Report Reviewed (ECHO) Problem List - Problems (1) Urinary tract infection Code(s): N39.0 - URINARY TRACT INFECTION, SITE NOT SPECIFIED Qualifiers: Urinary tract infection type: site unspecified Hematuria presence: with hematuria Qualified Code(s): N39.0 - Urinary tract infection, site not specified (2) Back pain Code(s): M54.9 - DORSALGIA, UNSPECIFIED (3) BPH with urinary obstruction Code(s): N40.1 - BENIGN PROSTATIC HYPERPLASIA WITH LOWER URINARY TRACT SYMP; N13.8 - OTHER OBSTRUCTIVE AND REFLUX UROPATHY (4) CAD (coronary artery disease) Code(s): I25.10 - ATHSCL HEART DISEASE OF [place] CORONARY ARTERY W/O ANG PCTRS (5) History of implantable cardiac defibrillator (ICD) Code(s): [id number] - (6) Acute on chronic systolic (congestive) heart failure Code(s): I50.23 - ACUTE ON CHRONIC SYSTOLIC (CONGESTIVE) HEART FAILURE (7) Hx of CABG Code(s): Z95.1 - PRESENCE OF AORTOCORONARY BYPASS GRAFT (8) Pleural effusion Code(s): J90 - PLEURAL EFFUSION, NOT ELSEWHERE CLASSIFIED (9) Pericardial effusion Code(s): I31.3 - PERICARDIAL EFFUSION (NONINFLAMMATORY) (10) Anemia Code(s): D64.9 - ANEMIA, UNSPECIFIED Qualifiers: Anemia type: unspecified type Qualified Code(s): D64.9 - Anemia, unspecified (11) Diabetes mellitus Code(s): E11.9 - TYPE 2 DIABETES MELLITUS WITHOUT COMPLICATIONS Qualifiers: Diabetes mellitus type: type 2 Chronic kidney disease stage: stage 2 (mild ) (12) HTN (hypertension) Code(s): I10 - ESSENTIAL (PRIMARY) HYPERTENSION Qualifiers: Hypertension type: essential hypertension Qualified Code(s): I10 - Essential (primary) hypertension (13) Hypercholesterolemia Code(s): E78.0 - PURE HYPERCHOLESTEROLEMIA * DO NOT USE * Assessment/Plan Cont diuretic Continue Abtx Cardio, consults are appreciated. PT Monitor BGM AM labs
--- NOTE | 2018-08-03 10:51 | CONSULT ---
Consult - text type - Consultation Consultation Note: FULL CONSULT DICTATED IMP: MILD LEFT SHOULDER AND LOWER BACK PAIN BUT NO ACUTE PATHOLOGY PLAN: NO RESTRICTIONS, OOB, WBAT, F/U PRN
--- NOTE | 2018-08-03 10:53 | CONSULT ---
<Ewa Peoples. - Last Filed: 08/03/18 11:26> - Consultation REQUESTING PROVIDER: CONSULT REQUEST: We have been asked to surgically evaluate this patient for LE wounds. PCP: Joie Noonan HISTORY OF PRESENT ILLNESS:HPI: Obtained from patient chart This patient is an 88 year old male well known and followed by Dr Small for PAD, with PMHx of CAD s/p CABG (2009), PAD, Left foot TMA, hyperthyroidism , IDDM, and BPH, who presented to ED with 3 days of right-sided lower back pain. Patient is followed by Dr Small in the wound care clinic and seen recently. Denies recent trauma, falls, dysuria, hematuria, frequency or other change in urination. h/o cancers. Denies any fevers, chills, nausea, vomiting, diarrhea, chest pain, shortness of breath. PMHx: as stated above PSHx: AICD, Amputation Left (TMA), Bypass, CABG REVIEW OF SYSTEMS: CONSTITUTIONAL: Absent: fever, chills, loss of appetite, weight change CARDIOVASCULAR: Absent: chest pain, syncope, peripheral edema RESPIRATORY: Absent: cough, shortness of breath, dyspnea with exertion, GASTROINTESTINAL: Absent: abdominal pain, abdominal distension, nausea, vomiting, GENITOURINARY: Absent: dysuria, frequency, urgency, MUSCULOSKELETAL: +myalgia, + arthralgia, +back pain SKIN: Absent: rash, itching, pallor HEMATOLOGIC/IMMUNOLOGIC: Absent: easy bleeding, easy bruising, PSYCHIATRIC: Absent: anxiety, depression, suicidal or homicidal ideation, hallucinations. - Physicial Exam PE: GENERAL: Awake, alert, and fully oriented, in no acute distress HEAD: No signs of trauma LUNGS: no audible wheezes. Unlabored resp on RA EXTREMITIES: no edema. No clubbing or cyanosis. b/l LE compartment soft, supple and non-tender, feet warm and well perfused, no palpable pulses at baseline. Left well healed TMA with small <1cm well defined ulcer, surrounding tissue intact with no erythema or edema. Left foot with mild cellulitis over 2nd toe and small stage II ulcer At PIP joint clean well defined boarders no d/ c or odor, Small area of ulceration over lateral aspect of 5th toe, clean with no d/c, no foul odor. No cords, erythema, or tenderness NEUROLOGICAL: Cranial nerves II through XII grossly intact. Normal speech. SKIN: Warm, Dry, normal turgor, no rashes Home Medications Medication Instructions Recorded Ascorbate Calcium [Vitamin C] 500 mg PO DAILY 01/20/14 Aspirin [ASA -] 81 mg PO DAILY 01/20/14 Carvedilol 3.125 mg PO BID 01/20/14 Clopidogrel Bisulfate [Plavix -] 75 mg PO DAILY 01/20/14 Folic Acid - 1 mg PO DAILY 01/20/14 Pregabalin [Lyrica -] 50 mg PO HS 01/20/14 Ranitidine HCl [Zantac] 150 mg PO HS 01/20/14 Tamsulosin HCl [Flomax -] 0.4 mg PO HS 01/20/14 Magnesium 250 mg PO DAILY 10/25/15 Levothyroxine [Synthroid -] 75 mcg PO MOTUWETH 07/21/16 Losartan Potassium [Cozaar -] 25 mg PO DAILY #90 tablet 09/02/16 Ergocalciferol (Vitamin D2) 2,000 unit PO DAILY 06/09/17 [Vitamin D2] Finasteride 0.05 mg PO DAILY 06/09/17 Furosemide [Lasix -] 20 mg PO DAILY 06/09/17 Insulin Glargine,Hum.rec.anlog 10 units SQ HS 06/09/17 [Lantus (10mL VIAL) -] Multivit-Min/FA/Lycopen/Lutein 1 tab PO DAILY 06/09/17 [Centrum Silver Tablet] Rosuvastatin Calcium 10 mg PO HS 06/09/17 Allergies Allergy/AdvReac Type Severity Reaction Status Date / Time No Known Allergies Allergy Verified 08/01/18 16:11 Vital Signs Temperature 97.4 F L 08/03/18 06:00 Pulse Rate 75 08/03/18 06:00 Respiratory Rate 19 08/03/18 09:00 Blood Pressure 124/66 08/03/18 06:00 O2 Sat by Pulse Oximetry (%) 94 L 08/03/18 09:00 Lab Results WBC 4.7 K/mm3 (4.0-10.0) 08/02/18 06:52 RBC 2.87 M/mm3 (4.00-5.60) L 08/02/18 06:52 Hgb 9.9 GM/dL (11.7-16.9) L 08/02/18 06:52 Hct 28.7 % (35.4-49) L 08/02/18 06:52 MCV 99.9 fl (80-96) H 08/02/18 06:52 MCHC 34.7 g/dl (32.0-35.9) 08/02/18 06:52 RDW 14.9 % (11.9-15.9) 08/02/18 06:52 Plt Count 111 K/MM3 (134-434) L 08/02/18 06:52 Sodium 142 mmol/L (136-145) 08/02/18 06:52 Potassium 4.7 mmol/L (3.5-5.1) 08/02/18 06:52 Chloride 108 mmol/L (98-107) H 08/02/18 06:52 Carbon Dioxide 26 mmol/L (21-32) 08/02/18 06:52 Anion Gap 9 MMOL/L (8-16) 08/02/18 06:52 BUN 56 mg/dL (7-18) H 08/02/18 06:52 Creatinine 1.7 mg/dL (0.55-1.3) H 08/02/18 06:52 Random Glucose 71 mg/dL (74-106) L 08/02/18 06:52 Calcium 8.5 mg/dL (8.5-10.1) 08/02/18 06:52 Problem List - Problems (1) Peripheral arterial disease Assessment/Plan: 88 yo male well known by Dr Small with PAD and stable LE wounds, No indication for vascular intervention. 1) Local wound care with gentamicin ointment and clean dry dressing changes daily 2) Off load pressure sensitive area 3) frequent positioning Q2hrs 4) b/l heel pads 5) f/u in would care clinic as out patient. Evaluation and plan discussed with Dr Small Code(s): I73.9 - PERIPHERAL VASCULAR DISEASE, UNSPECIFIED Visit type - Case Type Case Type: ED Admission - Emergency Emergency Visit: Yes ED Registration Date: 08/02/18 Care time: The patient presented to the Emergency Department on the above date and was hospitalized for further evaluation of their emergent condition. - New patient This patient is new to me today: Yes Date on this admission: 08/03/18 <Loyd Small - Last Filed: 08/03/18 18:20> - Consultation REQUESTING PROVIDER: CONSULT REQUEST: We have been asked to surgically evaluate this patient for ( specify). PCP:Joie Noonan HISTORY OF PRESENT ILLNESS: PMHx: PSHx: Home Medications Medication Instructions Recorded Ascorbate Calcium [Vitamin C] 500 mg PO DAILY 01/20/14 Aspirin [ASA -] 81 mg PO DAILY 01/20/14 Carvedilol 3.125 mg PO BID 01/20/14 Clopidogrel Bisulfate [Plavix -] 75 mg PO DAILY 01/20/14 Folic Acid - 1 mg PO DAILY 01/20/14 Pregabalin [Lyrica -] 50 mg PO HS 01/20/14 Ranitidine HCl [Zantac] 150 mg PO HS 01/20/14 Tamsulosin HCl [Flomax -] 0.4 mg PO HS 01/20/14 Magnesium 250 mg PO DAILY 10/25/15 Levothyroxine [Synthroid -] 75 mcg PO MOTUWETH 07/21/16 Losartan Potassium [Cozaar -] 25 mg PO DAILY #90 tablet 09/02/16 Ergocalciferol (Vitamin D2) 2,000 unit PO DAILY 06/09/17 [Vitamin D2] Finasteride 0.05 mg PO DAILY 06/09/17 Furosemide [Lasix -] 20 mg PO DAILY 06/09/17 Insulin Glargine,Hum.rec.anlog 10 units SQ HS 06/09/17 [Lantus (10mL VIAL) -] Multivit-Min/FA/Lycopen/Lutein 1 tab PO DAILY 06/09/17 [Centrum Silver Tablet] Rosuvastatin Calcium 10 mg PO HS 06/09/17 Allergies Allergy/AdvReac Type Severity Reaction Status Date / Time No Known Allergies Allergy Verified 08/01/18 16:11 REVIEW OF SYSTEMS: CONSTITUTIONAL: Absent: fever, chills, diaphoresis, generalized weakness, malaise, loss of appetite, weight change CARDIOVASCULAR: Absent: chest pain, syncope, palpitations, irregular heart rate, lightheadedness , peripheral edema RESPIRATORY: Absent: cough, shortness of breath, dyspnea with exertion, wheezing, stridor, hemoptysis GASTROINTESTINAL: Absent: abdominal pain, abdominal distension, nausea, vomiting, diarrhea, constipation, melena, hematochezia GENITOURINARY: Absent: dysuria, frequency, urgency, hesitancy, hematuria, flank pain, genital pain MUSCULOSKELETAL: Absent: myalgia, arthralgia, joint swelling, back pain, neck pain SKIN: Absent: rash, itching, pallor HEMATOLOGIC/IMMUNOLOGIC: Absent: easy bleeding, easy bruising, lymphadenopathy NEUROLOGIC: Absent: headache, focal weakness, paresthesias, dizziness, unsteady gait, seizure, mental status changes, bladder or bowel incontinence PSYCHIATRIC: Absent: anxiety, depression, suicidal or homicidal ideation, hallucinations. PHYSICAL EXAM: GENERAL: Awake, alert, and fully oriented, in no acute distress. HEAD: Normal with no signs of trauma. EYES: PERRL, sclera anicteric, conjunctiva clear. NECK: Normal ROM, supple without lymphadenopathy, JVD, or masses. LUNGS: Clear to auscultation bilat anteriorly. No wheezes, and no crackles. No accessory muscle use. HEART: Regular rate and rhythm. No murmurs ABDOMEN: Soft, nontender, not distended, normoactive bowel sounds, no guarding, no rebound, no masses. No organomegaly. MUSCULOSKELETAL: Normal ROM at all joints. No bony deformities or tenderness. No CVA tenderness. UPPER EXTREMITIES: 2+ pulses, warm, well-perfused. No cyanosis. Cap refill <2 seconds. No peripheral edema. LOWER EXTREMITIES: 2+ pulses, warm, well-perfused. No calf tenderness. No peripheral edema. NEUROLOGICAL: Normal speech, gait not observed. PSYCH: Cooperative. Good eye contact. Appropriate mood and affect. SKIN: Warm, dry, normal turgor, no rashes or lesions noted. Vital Signs Temperature 97.5 F L 08/03/18 15:00 Pulse Rate 72 08/03/18 15:00 Respiratory Rate 20 08/03/18 10:00 Blood Pressure 114/52 L 08/03/18 15:00 O2 Sat by Pulse Oximetry (%) 94 L 08/03/18 09:00 Lab Results WBC 4.7 K/mm3 (4.0-10.0) 08/02/18 06:52 RBC 2.87 M/mm3 (4.00-5.60) L 08/02/18 06:52 Hgb 9.9 GM/dL (11.7-16.9) L 08/02/18 06:52 Hct 28.7 % (35.4-49) L 08/02/18 06:52 MCV 99.9 fl (80-96) H 08/02/18 06:52 MCHC 34.7 g/dl (32.0-35.9) 08/02/18 06:52 RDW 14.9 % (11.9-15.9) 08/02/18 06:52 Plt Count 111 K/MM3 (134-434) L 08/02/18 06:52 Sodium 142 mmol/L (136-145) 08/02/18 06:52 Potassium 4.7 mmol/L (3.5-5.1) 08/02/18 06:52 Chloride 108 mmol/L (98-107) H 08/02/18 06:52 Carbon Dioxide 26 mmol/L (21-32) 08/02/18 06:52 Anion Gap 9 MMOL/L (8-16) 08/02/18 06:52 BUN 56 mg/dL (7-18) H 08/02/18 06:52 Creatinine 1.7 mg/dL (0.55-1.3) H 08/02/18 06:52 Random Glucose 71 mg/dL (74-106) L 08/02/18 06:52 Calcium 8.5 mg/dL (8.5-10.1) 08/02/18 06:52 Discussed with PA. Chronic toe wounds right foot and s/p left TMA. No acute issues with wounds. Continue wound care with gentamicin ointment. Routine follow-up in [facility].
--- NOTE | 2018-08-03 11:15 | CONS ---
DATE OF CONSULTATION: 08/03/2018 HISTORY OF PRESENT ILLNESS: Patient is an 88-year-old male with a past medical history significant for hypertension, mitral insufficiency, COPD and peripheral diabetic neuropathy and obviously diabetes mellitus complaining of some vague left shoulder and back pain. He uses his arms to get in and out of a wheelchair while he is at home and he kind of slipped in an effort to do so and pulled his left shoulder and back. Initially it was very painful to him. Today he says he feels much better. Denies any falling all the way down. Denies any new numbness or tingling. He does have usual decreased sensation in his feet due to his chronic peripheral neuropathy due to his diabetes. PHYSICAL EXAMINATION: Musculoskeletal: He has no ecchymosis, swelling or erythema of the shoulder. Actively he has excellent range of motion with good strength via thumb-down abduction, external rotation, liftoff. Nontender clavicle, AC joint, acromion, bicipital groove. Full range of motion of the left elbow, wrist and fingers and otherwise neurovascularly intact. His back has no tenderness in midline paraspinal area. He is with minimal if any pain with flexion and extension. He has adequate range of motion of his lower extremities. Negative femoral stress test, straight-leg raise sign. Global decreased sensation distally consistent with the diabetic neuropathy. IMAGING: X-rays of both the left shoulder and the lumbosacral spine failed to show any acute fracture-dislocation or oncoplastic lesions. Some mild foraminal stenosis in his lumbar spine. IMPRESSION: Left shoulder and low back pain, mild, resolving spontaneously. PLAN: Nothing to do. Out of bed. Weightbearing as tolerated. No restrictions. Follow up [id number]
[2018-08-03] MEDS: INSULIN SLIDING SCALE (NOVOLOG) 1 VIAL SQ SCH ×3 (11:35→21:32)
--- NOTE | 2018-08-03 12:36 | PN ---
Progress Note, Physician History of Present Illness: Left shoulder and lower back pain improving, denies dyspnea or chest pain. - Current Medication List Current Medications: Active Medications Acetaminophen (Tylenol -) 650 mg PO Q6H PRN PRN Reason: PAIN 1-3 Ascorbic Acid (Vitamin C -) 500 mg PO DAILY [facility] Last Admin: 08/03/18 09:22 Dose: 500 mg Aspirin (Asa -) 81 mg PO DAILY [facility] Last Admin: 08/03/18 09:22 Dose: 81 mg Bacitracin (Bacitracin -) 1 applic TP BID [facility] Last Admin: 08/03/18 09:22 Dose: 1 applic Carvedilol (Coreg -) 3.125 mg PO BID [facility] Last Admin: 08/03/18 09:22 Dose: 3.125 mg Cholecalciferol (Vitamin D3 -) 2,000 unit PO DAILY [facility] Last Admin: 08/03/18 09:17 Dose: 2,000 unit Clopidogrel Bisulfate (Plavix -) 75 mg PO DAILY [facility] Last Admin: 08/03/18 09:17 Dose: 75 mg Finasteride (Proscar -) 5 mg PO DAILY [facility] Last Admin: 08/03/18 09:16 Dose: 5 mg Folic Acid (Folic Acid -) 1 mg PO DAILY [facility] Last Admin: 08/03/18 09:22 Dose: 1 mg Furosemide (Lasix Injection -) 40 mg IVPUSH DAILY [facility] Last Admin: 08/03/18 09:17 Dose: 40 mg Gentamicin Sulfate (Garamycin 0.1% Ointment -) 1 applic TP BID [facility] Cefazolin Sodium (Ancef 1 Gm Premixed Ivpb -) 1 gm in 50 mls @ 100 mls/hr IVPB Q8H-IV [facility] Last Admin: 08/03/18 09:22 Dose: 100 mls/hr Insulin Aspart (Novolog Vial Sliding Scale -) 1 vial SQ [facility]; Protocol Last Admin: 08/03/18 11:35 Dose: Not Given Insulin Detemir (Levemir Vial) 10 units SQ HS [facility] Last Admin: 08/02/18 21:59 Dose: 10 units Levothyroxine Sodium (Synthroid -) 75 mcg PO MoTuWeTh@0700 [facility] Last Admin: 08/02/18 07:07 Dose: 75 mcg Losartan Potassium (Cozaar -) 25 mg PO DAILY [facility] Last Admin: 08/03/18 09:17 Dose: 25 mg Magnesium Oxide (Mag-Ox -) 400 mg PO DAILY [facility] Last Admin: 08/03/18 09:22 Dose: 400 mg Multivitamins/Minerals (Theragran-M) 1 each PO DAILY [facility] Last Admin: 08/03/18 09:22 Dose: 1 each Pregabalin (Lyrica -) 50 mg PO [facility] Last Admin: 08/02/18 21:58 Dose: 50 mg Ranitidine HCl (Zantac -) 150 mg PO [facility] Last Admin: 08/02/18 21:58 Dose: 150 mg Rosuvastatin Calcium (Crestor -) 10 mg PO [facility] Last Admin: 08/02/18 21:58 Dose: 10 mg Tamsulosin HCl (Flomax -) 0.4 mg PO [facility] Last Admin: 08/02/18 21:58 Dose: 0.4 mg - Objective Vital Signs: Vital Signs Temperature 97.6 F 08/03/18 10:00 Pulse Rate 76 08/03/18 10:00 Respiratory Rate 20 08/03/18 10:00 Blood Pressure 122/59 L 08/03/18 10:00 O2 Sat by Pulse Oximetry (%) 94 L 08/03/18 09:00 Constitutional: Yes: No Distress, Calm Neck: Yes: Supple Cardiovascular: Yes: Regular Rate and Rhythm Respiratory: Yes: Regular, CTA Bilaterally Gastrointestinal: Yes: Normal Bowel Sounds, Soft Edema: No Labs: CBC, BMP 08/02/18 06:52 08/02/18 06:52 Problem List - Problems (1) Muscle strain Code(s): T14.8XXA - OTHER INJURY OF UNSPECIFIED BODY REGION, INITIAL ENCOUNTER (2) Pericardial effusion Code(s): I31.3 - PERICARDIAL EFFUSION (NONINFLAMMATORY) (3) Pleural effusion Code(s): J90 - PLEURAL EFFUSION, NOT ELSEWHERE CLASSIFIED (4) ASHD (arteriosclerotic heart disease) Code(s): I25.10 - ATHSCL HEART DISEASE OF [place] CORONARY ARTERY W/O ANG PCTRS (5) Anemia Code(s): D64.9 - ANEMIA, UNSPECIFIED Qualifiers: Anemia type: unspecified type Qualified Code(s): D64.9 - Anemia, unspecified (6) CKD (chronic kidney disease) Code(s): N18.9 - CHRONIC KIDNEY DISEASE, UNSPECIFIED Qualifiers: Chronic kidney disease stage: stage 3 (moderate) Qualified Code(s): N18.3 - Chronic kidney disease, stage 3 (moderate) (7) COPD (chronic obstructive pulmonary disease) Code(s): J44.9 - CHRONIC OBSTRUCTIVE PULMONARY DISEASE, UNSPECIFIED Qualifiers: COPD type: chronic bronchitis (8) Carotid artery disease Code(s): I77.9 - DISORDER OF ARTERIES AND ARTERIOLES, UNSPECIFIED Qualifiers: Laterality: unspecified laterality Qualified Code(s): I77.9 - Disorder of arteries and arterioles, unspecified (9) Diabetes mellitus Code(s): E11.9 - TYPE 2 DIABETES MELLITUS WITHOUT COMPLICATIONS Qualifiers: Diabetes mellitus type: type 2 Chronic kidney disease stage: stage 2 (mild ) (10) HTN (hypertension) Code(s): I10 - ESSENTIAL (PRIMARY) HYPERTENSION Qualifiers: Hypertension type: essential hypertension Qualified Code(s): I10 - Essential (primary) hypertension (11) Hx of CABG Code(s): Z95.1 - PRESENCE OF AORTOCORONARY BYPASS GRAFT (12) Hypercholesterolemia Code(s): E78.0 - PURE HYPERCHOLESTEROLEMIA * DO NOT USE * (13) ICD (implantable cardioverter-defibrillator) in place Code(s): Z95.810 - PRESENCE OF AUTOMATIC (IMPLANTABLE) CARDIAC DEFIBRILLATOR (14) Peripheral arterial disease Code(s): I73.9 - PERIPHERAL VASCULAR DISEASE, UNSPECIFIED (15) Chronic systolic heart failure Code(s): I50.22 - CHRONIC SYSTOLIC (CONGESTIVE) HEART FAILURE Assessment/Plan 07/21/2016 Echo: Moderate dilated with mild-mod decreased LV fxn, pacer RV, mild LAE, mod MR, mild TR 08/01/[address]: Mod bilateral effusions R>L, small pericardial effusions 08/02/2018 Echo: Mild-mod decreased LVEF 40-45%, normal RV size and fxn, mild LAE, mild MR, tr TR, [place], [place]. No pericardial effusion 1. Chronic LV systolic failure with pleural effusions referable to dietary indiscretion resolving 2. CAD post CABG, angina pectoris 3. HTN 4. Insulin-dependent Type 2 DM 5. Hypercholesterolemia 6. 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 Carotid stenosis 8. PAD post [employer] and amputation (TMA) with rest pain 9. Left shoulder and lower back pain after pivot into wheelchair referable to musculoskeletal strain 10. CKD 11. UTI PLAN: 1. Continue IV diuretics with close monitoring of diuretic response, renal function and electrolytes 2. Continue ASA 81 qd, Plavix 75 qd, Carvedilol 3.125 bid, losartan 25 qd and Crestor 10 qhs 3. Addressed importance of dietary and medication compliance, analgesia as needed 4. Complete abx course
[2018-08-03] MEDS: GENTAMICIN SO4 0.1% TOPICAL OINTMENT 15 GM/TUBE TUBE TP SCH ×2 (14:49→21:34)
[2018-08-03] MEDS: PREGABALIN 50 MG CAPSULE PO SCH (21:31)
[2018-08-03] MEDS: ROSUVASTATIN CA 10 MG TABLET (FP) PO SCH (21:31)
[2018-08-03] MEDS: TAMSULOSIN HCL 0.4 MG CAP PO SCH (21:31)
[2018-08-03] MEDS: INSULIN (LEVEMIR) 100 UNITS/ML UNITS SQ SCH (21:32)
[2018-08-03] MEDS: RANITIDINE HCL 150 MG TABLET (FP) PO SCH (21:33)
[2018-08-04] MEDS: CEFAZOLIN 1 GM/D5W 1 GM/50 ML BAG IVPB SCH ×3 (01:25→18:03)
[2018-08-04] MEDS: INSULIN SLIDING SCALE (NOVOLOG) 1 VIAL SQ SCH ×4 (06:15→22:36)
[2018-08-04] MEDS ORDERED: INSULIN (LEVEMIR) 100 UNITS/ML UNITS SQ ONE (06:48)
[2018-08-04] MEDS ORDERED: INSULIN SLIDING SCALE (NOVOLOG) 1 VIAL SQ ONE (06:48)
--- NOTE | 2018-08-04 07:05 | PN ---
Progress Note, Physician Chief Complaint: in bed awake alert NAD no new c/o - Current Medication List Current Medications: Active Medications Acetaminophen (Tylenol -) 650 mg PO Q6H PRN PRN Reason: PAIN 1-3 Ascorbic Acid (Vitamin C -) 500 mg PO DAILY [facility] Last Admin: 08/03/18 09:22 Dose: 500 mg Aspirin (Asa -) 81 mg PO DAILY [facility] Last Admin: 08/03/18 09:22 Dose: 81 mg Carvedilol (Coreg -) 3.125 mg PO BID [facility] Last Admin: 08/03/18 21:31 Dose: 3.125 mg Cholecalciferol (Vitamin D3 -) 2,000 unit PO DAILY [facility] Last Admin: 08/03/18 09:17 Dose: 2,000 unit Clopidogrel Bisulfate (Plavix -) 75 mg PO DAILY [facility] Last Admin: 08/03/18 09:17 Dose: 75 mg Finasteride (Proscar -) 5 mg PO DAILY [facility] Last Admin: 08/03/18 09:16 Dose: 5 mg Folic Acid (Folic Acid -) 1 mg PO DAILY [facility] Last Admin: 08/03/18 09:22 Dose: 1 mg Furosemide (Lasix Injection -) 40 mg IVPUSH DAILY [facility] Last Admin: 08/03/18 09:17 Dose: 40 mg Gentamicin Sulfate (Garamycin 0.1% Ointment -) 1 applic TP BID [facility] Last Admin: 08/03/18 21:34 Dose: 1 applic Cefazolin Sodium (Ancef 1 Gm Premixed Ivpb -) 1 gm in 50 mls @ 100 mls/hr IVPB Q8H-IV [facility] Last Admin: 08/04/18 01:25 Dose: 100 mls/hr Insulin Aspart (Novolog Vial Sliding Scale -) 1 vial SQ ACHS [facility]; Protocol Last Admin: 08/04/18 06:15 Dose: Not Given Insulin Detemir (Levemir Vial) 10 units SQ HS [facility] Last Admin: 08/03/18 21:32 Dose: 10 units Levothyroxine Sodium (Synthroid -) 75 mcg PO MoTuWeTh@0700 [facility] Last Admin: 08/02/18 07:07 Dose: 75 mcg Losartan Potassium (Cozaar -) 25 mg PO DAILY [facility] Last Admin: 08/03/18 09:17 Dose: 25 mg Magnesium Oxide (Mag-Ox -) 400 mg PO DAILY [facility] Last Admin: 08/03/18 09:22 Dose: 400 mg Multivitamins/Minerals (Theragran-M) 1 each PO DAILY [facility] Last Admin: 08/03/18 09:22 Dose: 1 each Pregabalin (Lyrica -) 50 mg PO [facility] Last Admin: 08/03/18 21:31 Dose: 50 mg Ranitidine HCl (Zantac -) 150 mg PO [facility] Last Admin: 08/03/18 21:33 Dose: 150 mg Rosuvastatin Calcium (Crestor -) 10 mg PO [facility] Last Admin: 08/03/18 21:31 Dose: 10 mg Tamsulosin HCl (Flomax -) 0.4 mg PO [facility] Last Admin: 08/03/18 21:31 Dose: 0.4 mg - Objective Vital Signs: Vital Signs Temperature 98.1 F 08/04/18 06:22 Pulse Rate 67 08/04/18 06:22 Respiratory Rate 16 08/04/18 06:22 Blood Pressure 101/49 L 08/04/18 06:22 O2 Sat by Pulse Oximetry (%) 94 L 08/03/18 21:00 Constitutional: Yes: No Distress, Calm Eyes: Yes: Conjunctiva Clear HENT: Yes: Atraumatic Neck: Yes: Supple Cardiovascular: Yes: Regular Rate and Rhythm Respiratory: Yes: CTA Bilaterally Gastrointestinal: Yes: Soft. No: Tenderness Genitourinary: No: CVA Tenderness - Left, CVA Tenderness - Right Musculoskeletal: No: Joint Stiffness, Joint Swelling Extremities: No: Cold, Cool, Cyanosis Edema: No Integumentary: No: Rash, Venous Stasis Changes Neurological: Yes: WNL, Alert, Oriented ...Motor Strength: WNL Psychiatric: Yes: WNL, Alert, Oriented. No: Agitated, Suicidal Ideation Labs: CBC, BMP 08/02/18 06:52 08/02/18 06:52 - ....Imaging Other: Report Reviewed Assessment/Plan This patient is an 88 year old male, with PMHx of CAD s/p CABG (2009), PAD, partial let foot amputation, hyperthyroidism, IDDM, and BPH, who presents with severe right-sided flanks and lower back pain Has some dysuria and many WBC/UA - f/u Has some SOB at rest r/o CHF exac - cardiology eval iv lasix, IV ATB for UTI ortho eval for back and shoulder pain L TMA site redness and few toes R foot redness/ superficial wounds; will ask vascular surgery to see pt r/o new PVD; falls decubs aspiration DVT PFX dw pt and staff; will call pt's
[2018-08-04 08:06] LABS: BASO % 0.6 % (0-2.0); EOS % 3.9 % (0-4.5); HEMATOCRIT 29.2 % (35.4-49); LYMPH % 10.9 % (8-40); MCH 34.3 pg (25.7-33.7); MCHC 34.4 g/dl (32.0-35.9); MEAN CELL VOLUME 99.7 fl (80-96); MEAN PLT VOLUME 9.8 fl (7.5-11.1); MONO % 13.8 % (3.8-10.2); NEUT % 70.8 % (42.8-82.8); PLATELET COUNT 127 K/MM3 (134-434); RBC 2.93 M/mm3 (4.00-5.60); RDW 14.7 % (11.9-15.9); WHITE BLOOD COUNT 4.5 K/mm3 (4.0-10.0)
[2018-08-04 09:03] LABS: ALBUMIN 2.8 g/dl (3.4-5.0); ALK PHOS 126 U/L (45-117); ANION GAP 8 MMOL/L (8-16); BILIRUBIN,TOTAL 0.5 mg/dL (0.2-1); BLOOD UREA NITROGEN 62 mg/dL (7-18); CALCIUM 8.7 mg/dL (8.5-10.1); CHLORIDE 103 mmol/L (98-107); CO2 30 mmol/L (21-32); GLUCOSE,RANDOM 89 mg/dL (74-106); POTASSIUM 4.3 mmol/L (3.5-5.1); SGOT/AST 30 U/L (15-37); SGPT/ALT 16 U/L (13-61); SODIUM 140 mmol/L (136-145); TOT PROT 6.8 g/dl (6.4-8.2)
[2018-08-04] MEDS: CLOPIDOGREL BISULFATE 75 MG TABLET (FP) PO SCH (09:56)
[2018-08-04] MEDS: CARVEDILOL 3.125 MG TABLET (FP) PO SCH ×2 (09:56→22:35)
[2018-08-04] MEDS: FINASTERIDE 5 MG TABLET (FP) PO SCH (09:56)
[2018-08-04] MEDS: ASPIRIN 81 MG CHEWABLE TABLETS PO SCH (09:57)
[2018-08-04] MEDS: LOSARTAN POTASSIUM 25 MG TABLET PO SCH (09:57)
[2018-08-04] MEDS: FUROSEMIDE 20 MG TABLET (FP) PO SCH (09:58)
[2018-08-04] MEDS: GENTAMICIN SO4 0.1% TOPICAL OINTMENT 15 GM/TUBE TUBE TP SCH ×2 (09:58→22:37)
[2018-08-04] MEDS: MAGNESIUM OXIDE 400 MG TABLET (FP) PO SCH (09:58)
[2018-08-04] MEDS: FOLIC ACID 1 MG TABLET (FP) PO SCH (09:58)
[2018-08-04] MEDS: CHOLECALCIFEROL (VITAMIN D3) 1,000 UNIT TABLET (FP) PO SCH (09:58)
[2018-08-04] MEDS: ASCORBIC ACID 500 MG TABLET (FP) PO SCH (09:58)
[2018-08-04] MEDS: MULTIVITAMINS THER W-MINERALS COMBO TABLET (FP) PO SCH (09:58)
--- NOTE | 2018-08-04 11:02 | PN ---
Progress Note, Physician Chief Complaint: Events noted Not in distress History of Present Illness: Patient was seen and examined. Awake and alert. Chart was reviewed Denies chest pain, SOB or palpitations - Current Medication List Current Medications: Active Medications Acetaminophen (Tylenol -) 650 mg PO Q6H PRN PRN Reason: PAIN 1-3 Ascorbic Acid (Vitamin C -) 500 mg PO DAILY [facility] Last Admin: 08/04/18 09:58 Dose: 500 mg Aspirin (Asa -) 81 mg PO DAILY [facility] Last Admin: 08/04/18 09:57 Dose: 81 mg Carvedilol (Coreg -) 3.125 mg PO BID [facility] Last Admin: 08/04/18 09:56 Dose: 3.125 mg Cholecalciferol (Vitamin D3 -) 2,000 unit PO DAILY [facility] Last Admin: 08/04/18 09:58 Dose: 2,000 unit Clopidogrel Bisulfate (Plavix -) 75 mg PO DAILY [facility] Last Admin: 08/04/18 09:56 Dose: 75 mg Finasteride (Proscar -) 5 mg PO DAILY [facility] Last Admin: 08/04/18 09:56 Dose: 5 mg Folic Acid (Folic Acid -) 1 mg PO DAILY [facility] Last Admin: 08/04/18 09:58 Dose: 1 mg Furosemide (Lasix -) 20 mg PO DAILY [facility] Last Admin: 08/04/18 09:58 Dose: 20 mg Gentamicin Sulfate (Garamycin 0.1% Ointment -) 1 applic TP BID [facility] Last Admin: 08/04/18 09:58 Dose: 1 applic Cefazolin Sodium (Ancef 1 Gm Premixed Ivpb -) 1 gm in 50 mls @ 100 mls/hr IVPB Q8H-IV [facility] Last Admin: 08/04/18 09:58 Dose: 100 mls/hr Insulin Aspart (Novolog Vial Sliding Scale -) 1 vial SQ ACHS [facility]; Protocol Last Admin: 08/04/18 06:15 Dose: Not Given Insulin Detemir (Levemir Vial) 10 units SQ HS [facility] Last Admin: 08/03/18 21:32 Dose: 10 units Levothyroxine Sodium (Synthroid -) 75 mcg PO MoTuWeTh@0700 [facility] Last Admin: 08/02/18 07:07 Dose: 75 mcg Losartan Potassium (Cozaar -) 25 mg PO DAILY [facility] Last Admin: 08/04/18 09:57 Dose: 25 mg Magnesium Oxide (Mag-Ox -) 400 mg PO DAILY [facility] Last Admin: 08/04/18 09:58 Dose: 400 mg Multivitamins/Minerals (Theragran-M) 1 each PO DAILY [facility] Last Admin: 08/04/18 09:58 Dose: 1 each Pregabalin (Lyrica -) 50 mg PO [facility] Last Admin: 08/03/18 21:31 Dose: 50 mg Ranitidine HCl (Zantac -) 150 mg PO [facility] Last Admin: 08/03/18 21:33 Dose: 150 mg Rosuvastatin Calcium (Crestor -) 10 mg PO [facility] Last Admin: 08/03/18 21:31 Dose: 10 mg Tamsulosin HCl (Flomax -) 0.4 mg PO [facility] Last Admin: 08/03/18 21:31 Dose: 0.4 mg - Objective Vital Signs: Vital Signs Temperature 98.1 F 08/04/18 06:22 Pulse Rate 67 08/04/18 06:22 Respiratory Rate 16 08/04/18 06:22 Blood Pressure 101/49 L 08/04/18 06:22 O2 Sat by Pulse Oximetry (%) 94 L 08/03/18 21:00 Eyes: Yes: PERRL HENT: Yes: Atraumatic Neck: Yes: Supple Cardiovascular: Yes: Regular Rate and Rhythm, S1, S2 Respiratory: Yes: Diminished Gastrointestinal: Yes: Normal Bowel Sounds, Soft. No: Tenderness Edema: No Additional Findings/Remarks: - Review of Systems Constitutional: denies: Chills, Fever Cardiovascular: denies: Chest Pain. denies: Palpitations, Shortness of Breath Respiratory: denies: Cough. denies: Hemoptysis, Orthopnea, PND, SOB, SOB on Exertion Gastrointestinal: denies: Abdominal Pain, Constipation, Diarrhea, Melena, Nausea , Rectal Bleeding, Vomiting Neurological: denies: Dizziness, Headache, Seizure, Syncope Labs: CBC, BMP 08/04/18 06:00 08/04/18 06:00 Problem List - Problems (1) BPH with urinary obstruction Code(s): N40.1 - BENIGN PROSTATIC HYPERPLASIA WITH LOWER URINARY TRACT SYMP; N13.8 - OTHER OBSTRUCTIVE AND REFLUX UROPATHY (2) CAD (coronary artery disease) Code(s): I25.10 - ATHSCL HEART DISEASE OF [place] CORONARY ARTERY W/O ANG PCTRS (3) Chronic systolic heart failure Code(s): I50.22 - CHRONIC SYSTOLIC (CONGESTIVE) HEART FAILURE (4) History of implantable cardiac defibrillator (ICD) Code(s): [id number] - (5) Pleural effusion Code(s): J90 - PLEURAL EFFUSION, NOT ELSEWHERE CLASSIFIED (6) Acute on chronic systolic (congestive) heart failure Code(s): I50.23 - ACUTE ON CHRONIC SYSTOLIC (CONGESTIVE) HEART FAILURE (7) Anemia Code(s): D64.9 - ANEMIA, UNSPECIFIED Qualifiers: Anemia type: unspecified type Qualified Code(s): D64.9 - Anemia, unspecified (8) CKD (chronic kidney disease) Code(s): N18.9 - CHRONIC KIDNEY DISEASE, UNSPECIFIED Qualifiers: Chronic kidney disease stage: stage 3 (moderate) Qualified Code(s): N18.3 - Chronic kidney disease, stage 3 (moderate) (9) Carotid artery disease Code(s): I77.9 - DISORDER OF ARTERIES AND ARTERIOLES, UNSPECIFIED Qualifiers: Laterality: unspecified laterality Qualified Code(s): I77.9 - Disorder of arteries and arterioles, unspecified (10) HTN (hypertension) Code(s): I10 - ESSENTIAL (PRIMARY) HYPERTENSION Qualifiers: Hypertension type: essential hypertension Qualified Code(s): I10 - Essential (primary) hypertension (11) Hypercholesterolemia Code(s): E78.0 - PURE HYPERCHOLESTEROLEMIA * DO NOT USE * Assessment/Plan 1. 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 CAD post CABG, angina pectoris 3. HTN 4. Insulin-dependent Type 2 DM 5. Hypercholesterolemia 6. 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 Carotid stenosis 8. 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 Left shoulder and lower back pain after pivot into wheelchair referable to musculoskeletal strain 10. CKD 11. UTI PLAN: 1. Continue IV diuretics with close monitoring of renal function and electrolytes 2. Continue ASA 81 mg QD, Plavix 75 mg QD, Carvedilol 3.125 mg BID, Losartan 25 mg QD and Crestor 10 mg QHS 3. Dietary and medication compliance and analgesia as needed 4. Complete antibiotic course Further plans are to follow Keyon Fair MD
[2018-08-04] MEDS ORDERED: PT OWN MED DRAWER 7, Y5N ONE (22:32)
[2018-08-04] MEDS: TAMSULOSIN HCL 0.4 MG CAP PO SCH (22:35)
[2018-08-04] MEDS: RANITIDINE HCL 150 MG TABLET (FP) PO SCH (22:35)
[2018-08-04] MEDS: ROSUVASTATIN CA 10 MG TABLET (FP) PO SCH (22:35)
[2018-08-04] MEDS: PREGABALIN 50 MG CAPSULE PO SCH (22:35)
[2018-08-04] MEDS: INSULIN (LEVEMIR) 100 UNITS/ML UNITS SQ SCH (22:36)
[2018-08-05] MEDS: CEFAZOLIN 1 GM/D5W 1 GM/50 ML BAG IVPB SCH ×3 (02:12→17:25)
[2018-08-05] MEDS: INSULIN SLIDING SCALE (NOVOLOG) 1 VIAL SQ SCH ×4 (06:31→22:57)
--- NOTE | 2018-08-05 06:41 | PN ---
Progress Note, Physician Chief Complaint: no new c/o consults appreciated - Current Medication List Current Medications: Active Medications Acetaminophen (Tylenol -) 650 mg PO Q6H PRN PRN Reason: PAIN 1-3 Ascorbic Acid (Vitamin C -) 500 mg PO DAILY [facility] Last Admin: 08/04/18 09:58 Dose: 500 mg Aspirin (Asa -) 81 mg PO DAILY [facility] Last Admin: 08/04/18 09:57 Dose: 81 mg Carvedilol (Coreg -) 3.125 mg PO BID [facility] Last Admin: 08/04/18 22:35 Dose: 3.125 mg Cholecalciferol (Vitamin D3 -) 2,000 unit PO DAILY [facility] Last Admin: 08/04/18 09:58 Dose: 2,000 unit Clopidogrel Bisulfate (Plavix -) 75 mg PO DAILY [facility] Last Admin: 08/04/18 09:56 Dose: 75 mg Finasteride (Proscar -) 5 mg PO DAILY [facility] Last Admin: 08/04/18 09:56 Dose: 5 mg Folic Acid (Folic Acid -) 1 mg PO DAILY [facility] Last Admin: 08/04/18 09:58 Dose: 1 mg Furosemide (Lasix -) 20 mg PO DAILY [facility] Last Admin: 08/04/18 09:58 Dose: 20 mg Gentamicin Sulfate (Garamycin 0.1% Ointment -) 1 applic TP BID [facility] Last Admin: 08/04/18 22:37 Dose: 1 applic Cefazolin Sodium (Ancef 1 Gm Premixed Ivpb -) 1 gm in 50 mls @ 100 mls/hr IVPB Q8H-IV [facility] Last Admin: 08/05/18 02:12 Dose: 100 mls/hr Insulin Aspart (Novolog Vial Sliding Scale -) 1 vial SQ [facility]; Protocol Last Admin: 08/05/18 06:31 Dose: Not Given Insulin Detemir (Levemir Vial) 10 units SQ HS [facility] Last Admin: 08/04/18 22:36 Dose: 10 units Levothyroxine Sodium (Synthroid -) 75 mcg PO MoTuWeTh@0700 [facility] Last Admin: 08/02/18 07:07 Dose: 75 mcg Losartan Potassium (Cozaar -) 25 mg PO DAILY [facility] Last Admin: 08/04/18 09:57 Dose: 25 mg Magnesium Oxide (Mag-Ox -) 400 mg PO DAILY [facility] Last Admin: 08/04/18 09:58 Dose: 400 mg Multivitamins/Minerals (Theragran-M) 1 each PO DAILY [facility] Last Admin: 08/04/18 09:58 Dose: 1 each Pregabalin (Lyrica -) 50 mg PO [facility] Last Admin: 08/04/18 22:35 Dose: 50 mg Ranitidine HCl (Zantac -) 150 mg PO [facility] Last Admin: 08/04/18 22:35 Dose: 150 mg Rosuvastatin Calcium (Crestor -) 10 mg PO [facility] Last Admin: 08/04/18 22:35 Dose: 10 mg Tamsulosin HCl (Flomax -) 0.4 mg PO [facility] Last Admin: 08/04/18 22:35 Dose: 0.4 mg - Objective Vital Signs: Vital Signs Temperature 98.1 F 08/05/18 01:41 Pulse Rate 69 08/05/18 01:41 Respiratory Rate 18 08/05/18 01:41 Blood Pressure 92/44 L 08/05/18 01:41 O2 Sat by Pulse Oximetry (%) 96 08/04/18 21:00 Constitutional: Yes: No Distress, Calm Eyes: Yes: Conjunctiva Clear HENT: Yes: Atraumatic Neck: Yes: Supple Cardiovascular: Yes: Regular Rate and Rhythm Respiratory: Yes: CTA Bilaterally Gastrointestinal: Yes: Soft. No: Tenderness Genitourinary: No: CVA Tenderness - Left, CVA Tenderness - Right Musculoskeletal: No: Joint Stiffness, Joint Swelling Extremities: No: Cold, Cool Edema: No Integumentary: No: Rash, Venous Stasis Changes Neurological: Yes: WNL, Alert, Oriented ...Motor Strength: WNL Psychiatric: Yes: WNL, Alert, Oriented. No: Agitated, Suicidal Ideation Labs: CBC, BMP 08/04/18 06:00 - ....Imaging Other: Report Reviewed Assessment/Plan This patient is an 88 year old male, with PMHx of CAD s/p CABG (2009), PAD, partial let foot amputation, hyperthyroidism, IDDM, and BPH, who presents with severe right-sided flanks and lower back pain UTI, BPH - f/u, IV ATB for UTI ASHD, CHF exac - cardiology f/u change iv to po lasix, ortho eval for back and shoulder pain L TMA PVD, vascular surgery f/u falls decubs aspiration DVT PFX dw pt and staff; d/w pt's - DC planning is home with PT/VNS but Rosi is currently sick home with URI and is very weak and sick herself; d/ w pt and SNF they do not seem to want it - will d/w CM in am.
[2018-08-05 06:58] LABS: ANION GAP 8 MMOL/L (8-16); BLOOD UREA NITROGEN 68 mg/dL (7-18); CALCIUM 8.5 mg/dL (8.5-10.1); CHLORIDE 104 mmol/L (98-107); CO2 29 mmol/L (21-32); CREATININE 2.1 mg/dL (0.55-1.3); GLUCOSE,RANDOM 60 mg/dL (74-106); SODIUM 141 mmol/L (136-145)
--- NOTE | 2018-08-05 09:22 | PN ---
Progress Note, Physician Chief Complaint: Events noted Not in distress History of Present Illness: Patient was seen and examined. Awake and alert. Chart was reviewed Denies chest pain, SOB or palpitations - Current Medication List Current Medications: Active Medications Acetaminophen (Tylenol -) 650 mg PO Q6H PRN PRN Reason: PAIN 1-3 Ascorbic Acid (Vitamin C -) 500 mg PO DAILY [facility] Last Admin: 08/04/18 09:58 Dose: 500 mg Aspirin (Asa -) 81 mg PO DAILY [facility] Last Admin: 08/04/18 09:57 Dose: 81 mg Carvedilol (Coreg -) 3.125 mg PO BID [facility] Last Admin: 08/04/18 22:35 Dose: 3.125 mg Cholecalciferol (Vitamin D3 -) 2,000 unit PO DAILY [facility] Last Admin: 08/04/18 09:58 Dose: 2,000 unit Clopidogrel Bisulfate (Plavix -) 75 mg PO DAILY [facility] Last Admin: 08/04/18 09:56 Dose: 75 mg Finasteride (Proscar -) 5 mg PO DAILY [facility] Last Admin: 08/04/18 09:56 Dose: 5 mg Folic Acid (Folic Acid -) 1 mg PO DAILY [facility] Last Admin: 08/04/18 09:58 Dose: 1 mg Furosemide (Lasix -) 20 mg PO DAILY [facility] Last Admin: 08/04/18 09:58 Dose: 20 mg Gentamicin Sulfate (Garamycin 0.1% Ointment -) 1 applic TP BID [facility] Last Admin: 08/04/18 22:37 Dose: 1 applic Cefazolin Sodium (Ancef 1 Gm Premixed Ivpb -) 1 gm in 50 mls @ 100 mls/hr IVPB Q8H-IV [facility] Last Admin: 08/05/18 02:12 Dose: 100 mls/hr Insulin Aspart (Novolog Vial Sliding Scale -) 1 vial SQ ACHS [facility]; Protocol Last Admin: 08/05/18 06:31 Dose: Not Given Insulin Detemir (Levemir Vial) 10 units SQ HS [facility] Last Admin: 08/04/18 22:36 Dose: 10 units Levothyroxine Sodium (Synthroid -) 75 mcg PO MoTuWeTh@0700 [facility] Last Admin: 08/02/18 07:07 Dose: 75 mcg Losartan Potassium (Cozaar -) 25 mg PO DAILY [facility] Last Admin: 08/04/18 09:57 Dose: 25 mg Magnesium Oxide (Mag-Ox -) 400 mg PO DAILY [facility] Last Admin: 08/04/18 09:58 Dose: 400 mg Multivitamins/Minerals (Theragran-M) 1 each PO DAILY [facility] Last Admin: 08/04/18 09:58 Dose: 1 each Pregabalin (Lyrica -) 50 mg PO [facility] Last Admin: 08/04/18 22:35 Dose: 50 mg Ranitidine HCl (Zantac -) 150 mg PO [facility] Last Admin: 08/04/18 22:35 Dose: 150 mg Rosuvastatin Calcium (Crestor -) 10 mg PO [facility] Last Admin: 08/04/18 22:35 Dose: 10 mg Tamsulosin HCl (Flomax -) 0.4 mg PO [facility] Last Admin: 08/04/18 22:35 Dose: 0.4 mg - Objective Vital Signs: Vital Signs Temperature 98.1 F 08/05/18 01:41 Pulse Rate 64 08/05/18 06:00 Respiratory Rate 18 08/05/18 06:00 Blood Pressure 109/57 L 08/05/18 06:00 O2 Sat by Pulse Oximetry (%) 96 08/04/18 21:00 Eyes: Yes: PERRL HENT: Yes: Atraumatic Neck: Yes: Supple Cardiovascular: Yes: Regular Rate and Rhythm, S1, S2 Respiratory: Yes: CTA Bilaterally Gastrointestinal: Yes: Normal Bowel Sounds, Soft. No: Tenderness Extremities: Yes: Amputation Edema: No Additional Findings/Remarks: - Review of Systems Constitutional: denies: Chills, Fever Cardiovascular: denies: Chest Pain. denies: Palpitations, Shortness of Breath Respiratory: denies: Cough. denies: Hemoptysis, Orthopnea, PND, SOB, SOB on Exertion Gastrointestinal: denies: Abdominal Pain, Constipation, Diarrhea, Melena, Nausea , Rectal Bleeding, Vomiting Neurological: denies: Dizziness, Headache, Seizure, Syncope Labs: CBC, BMP 08/04/18 06:00 08/05/18 05:25 Problem List - Problems (1) BPH with urinary obstruction Code(s): N40.1 - BENIGN PROSTATIC HYPERPLASIA WITH LOWER URINARY TRACT SYMP; N13.8 - OTHER OBSTRUCTIVE AND REFLUX UROPATHY (2) CAD (coronary artery disease) Code(s): I25.10 - ATHSCL HEART DISEASE OF [place] CORONARY ARTERY W/O ANG PCTRS (3) Chronic systolic heart failure Code(s): I50.22 - CHRONIC SYSTOLIC (CONGESTIVE) HEART FAILURE (4) History of implantable cardiac defibrillator (ICD) Code(s): [id number] - (5) Pleural effusion Code(s): J90 - PLEURAL EFFUSION, NOT ELSEWHERE CLASSIFIED (6) Acute on chronic systolic (congestive) heart failure Code(s): I50.23 - ACUTE ON CHRONIC SYSTOLIC (CONGESTIVE) HEART FAILURE (7) Anemia Code(s): D64.9 - ANEMIA, UNSPECIFIED Qualifiers: Anemia type: unspecified type Qualified Code(s): D64.9 - Anemia, unspecified (8) CKD (chronic kidney disease) Code(s): N18.9 - CHRONIC KIDNEY DISEASE, UNSPECIFIED Qualifiers: Chronic kidney disease stage: stage 3 (moderate) Qualified Code(s): N18.3 - Chronic kidney disease, stage 3 (moderate) (9) Carotid artery disease Code(s): I77.9 - DISORDER OF ARTERIES AND ARTERIOLES, UNSPECIFIED Qualifiers: Laterality: unspecified laterality Qualified Code(s): I77.9 - Disorder of arteries and arterioles, unspecified (10) HTN (hypertension) Code(s): I10 - ESSENTIAL (PRIMARY) HYPERTENSION Qualifiers: Hypertension type: essential hypertension Qualified Code(s): I10 - Essential (primary) hypertension (11) Hypercholesterolemia Code(s): E78.0 - PURE HYPERCHOLESTEROLEMIA * DO NOT USE * Assessment/Plan 1. 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 CAD post CABG, angina pectoris 3. HTN 4. Insulin-dependent Type 2 DM 5. Hypercholesterolemia 6. 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 Carotid stenosis 8. 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 Left shoulder and lower back pain after pivot into wheelchair referable to musculoskeletal strain 10. CKD 11. UTI PLAN: 1. Continue oral diuretics with close monitoring of renal function and electrolytes 2. Continue ASA 81 mg QD, Plavix 75 mg QD, Carvedilol 3.125 mg BID, Losartan 25 mg QD and Crestor 10 mg QHS 3. Dietary and medication compliance and analgesia as needed 4. Complete antibiotic course Further plans are to follow Keyon Fair MD
[2018-08-05] MEDS: FINASTERIDE 5 MG TABLET (FP) PO SCH (09:26)
[2018-08-05] MEDS: MULTIVITAMINS THER W-MINERALS COMBO TABLET (FP) PO SCH (09:28)
[2018-08-05] MEDS: ASPIRIN 81 MG CHEWABLE TABLETS PO SCH (09:28)
[2018-08-05] MEDS: LOSARTAN POTASSIUM 25 MG TABLET PO SCH (09:29)
[2018-08-05] MEDS: FOLIC ACID 1 MG TABLET (FP) PO SCH (09:29)
[2018-08-05] MEDS: CLOPIDOGREL BISULFATE 75 MG TABLET (FP) PO SCH (09:29)
[2018-08-05] MEDS: CARVEDILOL 3.125 MG TABLET (FP) PO SCH ×2 (09:30→22:55)
[2018-08-05] MEDS: ASCORBIC ACID 500 MG TABLET (FP) PO SCH (09:30)
[2018-08-05] MEDS: FUROSEMIDE 20 MG TABLET (FP) PO SCH (09:30)
[2018-08-05] MEDS: MAGNESIUM OXIDE 400 MG TABLET (FP) PO SCH (09:30)
[2018-08-05] MEDS: CHOLECALCIFEROL (VITAMIN D3) 1,000 UNIT TABLET (FP) PO SCH (09:30)
[2018-08-05] MEDS: GENTAMICIN SO4 0.1% TOPICAL OINTMENT 15 GM/TUBE TUBE TP SCH ×2 (14:00→22:56)
[2018-08-05] MEDS: ROSUVASTATIN CA 10 MG TABLET (FP) PO SCH (22:55)
[2018-08-05] MEDS: TAMSULOSIN HCL 0.4 MG CAP PO SCH (22:55)
[2018-08-05] MEDS: RANITIDINE HCL 150 MG TABLET (FP) PO SCH (22:56)
[2018-08-05] MEDS: PREGABALIN 50 MG CAPSULE PO SCH (22:56)
[2018-08-05] MEDS: INSULIN (LEVEMIR) 100 UNITS/ML UNITS SQ SCH (22:58)
[2018-08-06] MEDS: CEFAZOLIN 1 GM/D5W 1 GM/50 ML BAG IVPB SCH ×3 (01:13→17:41)
[2018-08-06] MEDS: INSULIN SLIDING SCALE (NOVOLOG) 1 VIAL SQ SCH ×4 (06:06→21:36)
--- NOTE | 2018-08-06 06:28 | PN ---
Progress Note, Physician Chief Complaint: in bed awake alert IV ceftriaxone day 5 no CP/SOB - Current Medication List Current Medications: Active Medications Acetaminophen (Tylenol -) 650 mg PO Q6H PRN PRN Reason: PAIN 1-3 Ascorbic Acid (Vitamin C -) 500 mg PO DAILY [facility] Last Admin: 08/05/18 09:30 Dose: 500 mg Aspirin (Asa -) 81 mg PO DAILY [facility] Last Admin: 08/05/18 09:28 Dose: 81 mg Carvedilol (Coreg -) 3.125 mg PO BID [facility] Last Admin: 08/05/18 22:55 Dose: 3.125 mg Cholecalciferol (Vitamin D3 -) 2,000 unit PO DAILY [facility] Last Admin: 08/05/18 09:30 Dose: 2,000 unit Clopidogrel Bisulfate (Plavix -) 75 mg PO DAILY [facility] Last Admin: 08/05/18 09:29 Dose: 75 mg Finasteride (Proscar -) 5 mg PO DAILY [facility] Last Admin: 08/05/18 09:26 Dose: 5 mg Folic Acid (Folic Acid -) 1 mg PO DAILY [facility] Last Admin: 08/05/18 09:29 Dose: 1 mg Furosemide (Lasix -) 20 mg PO DAILY [facility] Last Admin: 08/05/18 09:30 Dose: 20 mg Gentamicin Sulfate (Garamycin 0.1% Ointment -) 1 applic TP BID [facility] Last Admin: 08/05/18 22:56 Dose: 1 applic Cefazolin Sodium (Ancef 1 Gm Premixed Ivpb -) 1 gm in 50 mls @ 100 mls/hr IVPB Q8H-IV [facility] Last Admin: 08/06/18 01:13 Dose: 100 mls/hr Insulin Aspart (Novolog Vial Sliding Scale -) 1 vial SQ [facility]; Protocol Last Admin: 08/06/18 06:06 Dose: Not Given Insulin Detemir (Levemir Vial) 10 units SQ HS [facility] Last Admin: 08/05/18 22:58 Dose: 10 units Levothyroxine Sodium (Synthroid -) 75 mcg PO MoTuWeTh@0700 [facility] Last Admin: 08/02/18 07:07 Dose: 75 mcg Losartan Potassium (Cozaar -) 25 mg PO DAILY [facility] Last Admin: 08/05/18 09:29 Dose: 25 mg Magnesium Oxide (Mag-Ox -) 400 mg PO DAILY [facility] Last Admin: 08/05/18 09:30 Dose: 400 mg Multivitamins/Minerals (Theragran-M) 1 each PO DAILY [facility] Last Admin: 08/05/18 09:28 Dose: 1 each Pregabalin (Lyrica -) 50 mg PO [facility] Last Admin: 08/05/18 22:56 Dose: 50 mg Ranitidine HCl (Zantac -) 150 mg PO [facility] Last Admin: 08/05/18 22:56 Dose: 150 mg Rosuvastatin Calcium (Crestor -) 10 mg PO [facility] Last Admin: 08/05/18 22:55 Dose: 10 mg Tamsulosin HCl (Flomax -) 0.4 mg PO [facility] Last Admin: 08/05/18 22:55 Dose: 0.4 mg - Objective Vital Signs: Vital Signs Temperature 97.9 F 08/06/18 02:00 Pulse Rate 69 08/06/18 02:00 Respiratory Rate 20 08/06/18 02:00 Blood Pressure 114/51 L 08/06/18 02:00 O2 Sat by Pulse Oximetry (%) 98 08/05/18 21:00 Constitutional: Yes: No Distress, Calm Eyes: Yes: Conjunctiva Clear HENT: Yes: Atraumatic Neck: Yes: Supple Cardiovascular: Yes: Regular Rate and Rhythm Respiratory: Yes: Diminished Gastrointestinal: Yes: Soft Genitourinary: No: CVA Tenderness - Left, CVA Tenderness - Right Musculoskeletal: No: Joint Stiffness, Joint Swelling Extremities: Yes: Amputation. No: Cold, Cool, Cyanosis Edema: No Integumentary: No: Rash, Venous Stasis Changes Neurological: Yes: WNL, Alert, Oriented ...Motor Strength: WNL Psychiatric: Yes: WNL, Alert, Oriented. No: Agitated Labs: CBC, BMP 08/04/18 06:00 08/05/18 05:25 - ....Imaging Other: Report Reviewed Assessment/Plan This patient is an 88 year old male, with PMHx of CAD s/p CABG (2009), PAD, partial let foot amputation, hyperthyroidism, IDDM, and BPH, who presents with severe right-sided flanks and lower back pain UTI, BPH - f/u, IV ATB for UTI ASHD, CHF exac - cardiology f/u po lasix, falls decubs aspiration DVT PFX dw pt and staff; DC planning per pt, and CM
[2018-08-06] MEDS: LEVOTHYROXINE NA 75 MCG TABLET (FP) PO SCH (06:46)
[2018-08-06 07:38] LABS: ANION GAP 6 MMOL/L (8-16); BLOOD UREA NITROGEN 66 mg/dL (7-18); CHLORIDE 106 mmol/L (98-107); CO2 29 mmol/L (21-32); GLUCOSE,RANDOM 82 mg/dL (74-106); POTASSIUM 3.9 mmol/L (3.5-5.1); SODIUM 140 mmol/L (136-145)
[2018-08-06] MEDS: CARVEDILOL 3.125 MG TABLET (FP) PO SCH ×2 (10:08→21:38)
[2018-08-06] MEDS: ASPIRIN 81 MG CHEWABLE TABLETS PO SCH (10:08)
[2018-08-06] MEDS: CLOPIDOGREL BISULFATE 75 MG TABLET (FP) PO SCH (10:08)
[2018-08-06] MEDS: MULTIVITAMINS THER W-MINERALS COMBO TABLET (FP) PO SCH (10:08)
[2018-08-06] MEDS: FOLIC ACID 1 MG TABLET (FP) PO SCH (10:08)
[2018-08-06] MEDS: CHOLECALCIFEROL (VITAMIN D3) 1,000 UNIT TABLET (FP) PO SCH (10:08)
[2018-08-06] MEDS: ASCORBIC ACID 500 MG TABLET (FP) PO SCH (10:08)
[2018-08-06] MEDS: MAGNESIUM OXIDE 400 MG TABLET (FP) PO SCH (10:08)
[2018-08-06] MEDS: LOSARTAN POTASSIUM 25 MG TABLET PO SCH (10:08)
[2018-08-06] MEDS: FUROSEMIDE 20 MG TABLET (FP) PO SCH (10:08)
[2018-08-06] MEDS: FINASTERIDE 5 MG TABLET (FP) PO SCH ×2 (10:08→21:32)
[2018-08-06] MEDS: GENTAMICIN SO4 0.1% TOPICAL OINTMENT 15 GM/TUBE TUBE TP SCH ×2 (10:09→21:44)
--- NOTE | 2018-08-06 10:30 | PN ---
Progress Note, Physician Chief Complaint: Events noted Not in distress History of Present Illness: Patient was seen and examined. Awake and alert. Chart was reviewed Denies chest pain, SOB or palpitations Less shoulder pain - Current Medication List Current Medications: Active Medications Acetaminophen (Tylenol -) 650 mg PO Q6H PRN PRN Reason: PAIN 1-3 Ascorbic Acid (Vitamin C -) 500 mg PO DAILY [facility] Last Admin: 08/06/18 10:08 Dose: 500 mg Aspirin (Asa -) 81 mg PO DAILY [facility] Last Admin: 08/06/18 10:08 Dose: 81 mg Carvedilol (Coreg -) 3.125 mg PO BID [facility] Last Admin: 08/06/18 10:08 Dose: 3.125 mg Cholecalciferol (Vitamin D3 -) 2,000 unit PO DAILY [facility] Last Admin: 08/06/18 10:08 Dose: 2,000 unit Clopidogrel Bisulfate (Plavix -) 75 mg PO DAILY [facility] Last Admin: 08/06/18 10:08 Dose: 75 mg Finasteride (Proscar -) 5 mg PO DAILY [facility] Last Admin: 08/06/18 10:08 Dose: 5 mg Folic Acid (Folic Acid -) 1 mg PO DAILY [facility] Last Admin: 08/06/18 10:08 Dose: 1 mg Furosemide (Lasix -) 20 mg PO DAILY [facility] Last Admin: 08/06/18 10:08 Dose: 20 mg Gentamicin Sulfate (Garamycin 0.1% Ointment -) 1 applic TP BID [facility] Last Admin: 08/06/18 10:09 Dose: 1 applic Cefazolin Sodium (Ancef 1 Gm Premixed Ivpb -) 1 gm in 50 mls @ 100 mls/hr IVPB Q8H-IV [facility] Last Admin: 08/06/18 10:07 Dose: 100 mls/hr Insulin Aspart (Novolog Vial Sliding Scale -) 1 vial SQ ACHS [facility]; Protocol Last Admin: 08/06/18 06:06 Dose: Not Given Insulin Detemir (Levemir Vial) 10 units SQ HS [facility] Last Admin: 08/05/18 22:58 Dose: 10 units Levothyroxine Sodium (Synthroid -) 75 mcg PO MoTuWeTh@0700 [facility] Last Admin: 08/06/18 06:46 Dose: 75 mcg Losartan Potassium (Cozaar -) 25 mg PO DAILY [facility] Last Admin: 08/06/18 10:08 Dose: 25 mg Magnesium Oxide (Mag-Ox -) 400 mg PO DAILY [facility] Last Admin: 08/06/18 10:08 Dose: 400 mg Multivitamins/Minerals (Theragran-M) 1 each PO DAILY [facility] Last Admin: 08/06/18 10:08 Dose: 1 each Pregabalin (Lyrica -) 50 mg PO [facility] Last Admin: 08/05/18 22:56 Dose: 50 mg Ranitidine HCl (Zantac -) 150 mg PO [facility] Last Admin: 08/05/18 22:56 Dose: 150 mg Rosuvastatin Calcium (Crestor -) 10 mg PO [facility] Last Admin: 08/05/18 22:55 Dose: 10 mg Tamsulosin HCl (Flomax -) 0.4 mg PO [facility] Last Admin: 08/05/18 22:55 Dose: 0.4 mg - Objective Vital Signs: Vital Signs Temperature 97.8 F 08/06/18 10:00 Pulse Rate 71 08/06/18 10:00 Respiratory Rate 20 08/06/18 10:00 Blood Pressure 108/47 L 08/06/18 10:00 O2 Sat by Pulse Oximetry (%) 98 08/05/18 21:00 Eyes: Yes: PERRL HENT: Yes: Atraumatic Neck: Yes: Supple Cardiovascular: Yes: Regular Rate and Rhythm, S1, S2 Respiratory: Yes: CTA Bilaterally Gastrointestinal: Yes: Normal Bowel Sounds, Soft. No: Tenderness Extremities: Yes: Amputation Edema: No Additional Findings/Remarks: - Review of Systems Constitutional: denies: Chills, Fever Cardiovascular: denies: Chest Pain. denies: Palpitations, Shortness of Breath Respiratory: denies: Cough. denies: Hemoptysis, Orthopnea, PND, SOB, SOB on Exertion Gastrointestinal: denies: Abdominal Pain, Constipation, Diarrhea, Melena, Nausea , Rectal Bleeding, Vomiting Neurological: denies: Dizziness, Headache, Seizure, Syncope Labs: CBC, BMP 08/04/18 06:00 08/06/18 06:30 Problem List - Problems (1) BPH with urinary obstruction Code(s): N40.1 - BENIGN PROSTATIC HYPERPLASIA WITH LOWER URINARY TRACT SYMP; N13.8 - OTHER OBSTRUCTIVE AND REFLUX UROPATHY (2) CAD (coronary artery disease) Code(s): I25.10 - ATHSCL HEART DISEASE OF [place] CORONARY ARTERY W/O ANG PCTRS (3) Chronic systolic heart failure Code(s): I50.22 - CHRONIC SYSTOLIC (CONGESTIVE) HEART FAILURE (4) History of implantable cardiac defibrillator (ICD) Code(s): [id number] - (5) Pleural effusion Code(s): J90 - PLEURAL EFFUSION, NOT ELSEWHERE CLASSIFIED (6) Acute on chronic systolic (congestive) heart failure Code(s): I50.23 - ACUTE ON CHRONIC SYSTOLIC (CONGESTIVE) HEART FAILURE (7) Anemia Code(s): D64.9 - ANEMIA, UNSPECIFIED Qualifiers: Anemia type: unspecified type Qualified Code(s): D64.9 - Anemia, unspecified (8) CKD (chronic kidney disease) Code(s): N18.9 - CHRONIC KIDNEY DISEASE, UNSPECIFIED Qualifiers: Chronic kidney disease stage: stage 3 (moderate) Qualified Code(s): N18.3 - Chronic kidney disease, stage 3 (moderate) (9) Carotid artery disease Code(s): I77.9 - DISORDER OF ARTERIES AND ARTERIOLES, UNSPECIFIED Qualifiers: Laterality: unspecified laterality Qualified Code(s): I77.9 - Disorder of arteries and arterioles, unspecified (10) HTN (hypertension) Code(s): I10 - ESSENTIAL (PRIMARY) HYPERTENSION Qualifiers: Hypertension type: essential hypertension Qualified Code(s): I10 - Essential (primary) hypertension (11) Hypercholesterolemia Code(s): E78.0 - PURE HYPERCHOLESTEROLEMIA * DO NOT USE * Assessment/Plan 1. 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 CAD post CABG, angina pectoris 3. HTN 4. Insulin-dependent Type 2 DM 5. Hypercholesterolemia 6. Post ICD (Medtronic) for sustained ventricular tachycardia 7. Carotid stenosis 8. 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 Left shoulder and lower back pain after pivot into wheelchair referable to musculoskeletal strain 10. CKD 11. UTI PLAN: 1. Continue oral diuretics with close monitoring of renal function and electrolytes 2. Continue ASA 81 mg QD, Plavix 75 mg QD, Carvedilol 3.125 mg BID, Losartan 25 mg QD and Crestor 10 mg QHS 3. Risk modifications including dietary and medication compliance and analgesia as needed 4. Complete antibiotic course Further plans are to follow Keyon Fair MD
[2018-08-06] MEDS ORDERED: PT OWN MED DRAWER 7, Y5N ONE (18:41)
[2018-08-06] MEDS: INSULIN (LEVEMIR) 100 UNITS/ML UNITS SQ SCH (21:36)
[2018-08-06] MEDS: RANITIDINE HCL 150 MG TABLET (FP) PO SCH (21:37)
[2018-08-06] MEDS: ROSUVASTATIN CA 10 MG TABLET (FP) PO SCH (21:37)
[2018-08-06] MEDS: TAMSULOSIN HCL 0.4 MG CAP PO SCH (21:38)
[2018-08-06] MEDS: PREGABALIN 50 MG CAPSULE PO SCH (21:38)
[2018-08-07] MEDS: CEFAZOLIN 1 GM/D5W 1 GM/50 ML BAG IVPB SCH ×2 (02:35→09:52)
--- NOTE | 2018-08-07 06:09 | DS ---
Physical Examination Vital Signs: Vital Signs Temperature 98.1 F 08/07/18 02:00 Pulse Rate 68 08/07/18 02:00 Respiratory Rate 18 08/07/18 02:00 Blood Pressure 99/50 L 08/07/18 02:00 O2 Sat by Pulse Oximetry (%) 96 08/06/18 20:18 Findings/Remarks: in bed awake afebrile no new c/o Constitutional: Yes: No Distress, Calm Eyes: Yes: Conjunctiva Clear HENT: Yes: Atraumatic Neck: Yes: Supple Cardiovascular: Yes: Regular Rate and Rhythm Respiratory: Yes: CTA Bilaterally Gastrointestinal: Yes: Soft. No: Tenderness Renal/: No: CVA Tenderness - Left, CVA Tenderness - Right Extremities: Yes: Amputation Edema: No Integumentary: No: Rash, Venous Stasis Changes Neurological: Yes: WNL, Alert, Oriented ...Motor Strength: WNL Psychiatric: Yes: WNL, Alert, Oriented. No: Agitated, Suicidal Ideation Labs: CBC, BMP 08/04/18 06:00 08/06/18 06:30 Discharge Summary Reason For Visit: PERICARDIAL EFFUSION PLEURAL EFFUSION Current Active Problems BPH with urinary obstruction (Acute) Back pain (Acute) Benign localized hyperplasia of prostate with urinary obstruction (Acute) CAD (coronary artery disease) (Acute) Chronic systolic heart failure (Acute) History of implantable cardiac defibrillator (ICD) (Acute) Muscle strain (Acute) Pericardial effusion (Acute) Pleural effusion (Acute) Procedures: Principal: h/o ASHD HTN CHF CRF anemia OA/DJD, BPH, PVD partial foot amputation, admitted with back/ flank/ shoulder pains after a fall; fou d to have some mild CHF too and a UTI Other Procedures: seen by , cardiology, ortho; received IV lasix, IV ATB; Hospital Course: improved with above; wants to go home (pt refused SNF); to f/u as advised; DC home with PT and VNS d/w pt and Condition: Fair - Instructions Diet, Activity, Other Instructions: f/u PCP, , vascular surgery, cardiology in 2-4 weeks; home PT, VNS falls decubs pfx has home O2 RTER if worse or recurrent c/o Referrals: Loernzo Youngblood MD [Staff Physician] - Shaun Nunez MD [Staff Physician] - Fransisco Garcia MD [Staff Physician] - Latanya Kirk MD [Staff Physician] - Disposition: VNS/HOME HEALTH CARE - Home Medications Comprehensive Discharge Medication List: Ambulatory Orders Ascorbate Calcium [Vitamin C] 500 mg PO DAILY 01/20/14 Aspirin [ASA -] 81 mg PO DAILY 01/20/14 Carvedilol 3.125 mg PO BID 01/20/14 Clopidogrel Bisulfate [Plavix -] 75 mg PO DAILY 01/20/14 Folic Acid - 1 mg PO DAILY 01/20/14 Pregabalin [Lyrica -] 50 mg PO HS 01/20/14 Ranitidine HCl [Zantac] 150 mg PO HS 01/20/14 Tamsulosin HCl [Flomax -] 0.4 mg PO HS 01/20/14 Magnesium 250 mg PO DAILY 10/25/15 Levothyroxine [Synthroid -] 75 mcg PO MOTUWETH 07/21/16 Losartan Potassium [Cozaar -] 25 mg PO DAILY #90 tablet 09/02/16 Ergocalciferol (Vitamin D2) [Vitamin D2] 2,000 unit PO DAILY 06/09/17 Finasteride 0.05 mg PO DAILY 06/09/17 Furosemide [Lasix -] 20 mg PO DAILY 06/09/17 Insulin Glargine,Hum.rec.anlog [Lantus (10mL VIAL) -] 10 units SQ HS 06/09/17 Multivit-Min/FA/Lycopen/Lutein [Centrum Silver Tablet] 1 tab PO DAILY 06/09/17 Rosuvastatin Calcium 10 mg PO HS 06/09/17
[2018-08-07] MEDS: LEVOTHYROXINE NA 75 MCG TABLET (FP) PO SCH (06:28)
[2018-08-07] MEDS: INSULIN SLIDING SCALE (NOVOLOG) 1 VIAL SQ SCH ×3 (06:29→16:39)
[2018-08-07 09:51] VITALS: BP 104/49; PULSE 69; TEMP 97.8
[2018-08-07] MEDS: MULTIVITAMINS THER W-MINERALS COMBO TABLET (FP) PO SCH (09:52)
[2018-08-07] MEDS: CARVEDILOL 3.125 MG TABLET (FP) PO SCH (09:52)
[2018-08-07] MEDS: FOLIC ACID 1 MG TABLET (FP) PO SCH (09:52)
[2018-08-07] MEDS: MAGNESIUM OXIDE 400 MG TABLET (FP) PO SCH (09:52)
[2018-08-07] MEDS: CHOLECALCIFEROL (VITAMIN D3) 1,000 UNIT TABLET (FP) PO SCH (09:52)
[2018-08-07] MEDS: CLOPIDOGREL BISULFATE 75 MG TABLET (FP) PO SCH (09:52)
[2018-08-07] MEDS: FUROSEMIDE 20 MG TABLET (FP) PO SCH (09:52)
[2018-08-07] MEDS: LOSARTAN POTASSIUM 25 MG TABLET PO SCH (09:52)
[2018-08-07] MEDS: ASCORBIC ACID 500 MG TABLET (FP) PO SCH (09:52)
[2018-08-07] MEDS: FINASTERIDE 5 MG TABLET (FP) PO SCH (09:53)
[2018-08-07] MEDS: GENTAMICIN SO4 0.1% TOPICAL OINTMENT 15 GM/TUBE TUBE TP SCH (09:53)
[2018-08-07] MEDS: ASPIRIN 81 MG CHEWABLE TABLETS PO SCH (09:57)
--- NOTE | 2018-08-07 10:40 | PN ---
Progress Note, Physician Chief Complaint: Events noted Not in distress History of Present Illness: Patient was seen and examined. Awake and alert. Chart was reviewed Denies chest pain, SOB or palpitations - Current Medication List Current Medications: Active Medications Acetaminophen (Tylenol -) 650 mg PO Q6H PRN PRN Reason: PAIN 1-3 Ascorbic Acid (Vitamin C -) 500 mg PO DAILY [facility] Last Admin: 08/07/18 09:52 Dose: 500 mg Aspirin (Asa -) 81 mg PO DAILY [facility] Last Admin: 08/07/18 09:57 Dose: 81 mg Carvedilol (Coreg -) 3.125 mg PO BID [facility] Last Admin: 08/07/18 09:52 Dose: 3.125 mg Cholecalciferol (Vitamin D3 -) 2,000 unit PO DAILY [facility] Last Admin: 08/07/18 09:52 Dose: 2,000 unit Clopidogrel Bisulfate (Plavix -) 75 mg PO DAILY [facility] Last Admin: 08/07/18 09:52 Dose: 75 mg Finasteride (Proscar -) 5 mg PO DAILY [facility] Last Admin: 08/07/18 09:53 Dose: 5 mg Folic Acid (Folic Acid -) 1 mg PO DAILY [facility] Last Admin: 08/07/18 09:52 Dose: 1 mg Furosemide (Lasix -) 20 mg PO DAILY [facility] Last Admin: 08/07/18 09:52 Dose: 20 mg Gentamicin Sulfate (Garamycin 0.1% Ointment -) 1 applic TP BID [facility] Last Admin: 08/07/18 09:53 Dose: 1 applic Cefazolin Sodium (Ancef 1 Gm Premixed Ivpb -) 1 gm in 50 mls @ 100 mls/hr IVPB Q8H-IV [facility] Last Admin: 08/07/18 09:52 Dose: 100 mls/hr Insulin Aspart (Novolog Vial Sliding Scale -) 1 vial SQ ACHS [facility]; Protocol Last Admin: 08/07/18 06:29 Dose: Not Given Insulin Detemir (Levemir Vial) 10 units SQ HS [facility] Last Admin: 08/06/18 21:36 Dose: 10 units Levothyroxine Sodium (Synthroid -) 75 mcg PO MoTuWeTh@0700 [facility] Last Admin: 08/07/18 06:28 Dose: 75 mcg Losartan Potassium (Cozaar -) 25 mg PO DAILY [facility] Last Admin: 08/07/18 09:52 Dose: 25 mg Magnesium Oxide (Mag-Ox -) 400 mg PO DAILY [facility] Last Admin: 08/07/18 09:52 Dose: 400 mg Multivitamins/Minerals (Theragran-M) 1 each PO DAILY [facility] Last Admin: 08/07/18 09:52 Dose: 1 each Pregabalin (Lyrica -) 50 mg PO [facility] Last Admin: 08/06/18 21:38 Dose: 50 mg Ranitidine HCl (Zantac -) 150 mg PO [facility] Last Admin: 08/06/18 21:37 Dose: 150 mg Rosuvastatin Calcium (Crestor -) 10 mg PO [facility] Last Admin: 08/06/18 21:37 Dose: 10 mg Tamsulosin HCl (Flomax -) 0.4 mg PO [facility] Last Admin: 08/06/18 21:38 Dose: 0.4 mg - Objective Vital Signs: Vital Signs Temperature 97.8 F 08/07/18 09:50 Pulse Rate 69 08/07/18 09:50 Respiratory Rate 19 08/07/18 09:50 Blood Pressure 104/49 L 08/07/18 09:50 O2 Sat by Pulse Oximetry (%) 95 08/07/18 09:00 HENT: Yes: Atraumatic Neck: Yes: Supple Cardiovascular: Yes: Regular Rate and Rhythm, S1, S2 Respiratory: Yes: CTA Bilaterally Gastrointestinal: Yes: Normal Bowel Sounds, Soft. No: Tenderness Extremities: Yes: Amputation Edema: No Additional Findings/Remarks: - Review of Systems Constitutional: denies: Chills, Fever Cardiovascular: denies: Chest Pain. denies: Palpitations, Shortness of Breath Respiratory: denies: Cough. denies: Hemoptysis, Orthopnea, PND, SOB, SOB on Exertion Gastrointestinal: denies: Abdominal Pain, Constipation, Diarrhea, Melena, Nausea , Rectal Bleeding, Vomiting Neurological: denies: Dizziness, Headache, Seizure, Syncope Problem List - Problems (1) BPH with urinary obstruction Code(s): N40.1 - BENIGN PROSTATIC HYPERPLASIA WITH LOWER URINARY TRACT SYMP; N13.8 - OTHER OBSTRUCTIVE AND REFLUX UROPATHY (2) CAD (coronary artery disease) Code(s): I25.10 - ATHSCL HEART DISEASE OF [place] CORONARY ARTERY W/O ANG PCTRS (3) Chronic systolic heart failure Code(s): I50.22 - CHRONIC SYSTOLIC (CONGESTIVE) HEART FAILURE (4) History of implantable cardiac defibrillator (ICD) Code(s): [id number] - (5) Pleural effusion Code(s): J90 - PLEURAL EFFUSION, NOT ELSEWHERE CLASSIFIED (6) Acute on chronic systolic (congestive) heart failure Code(s): I50.23 - ACUTE ON CHRONIC SYSTOLIC (CONGESTIVE) HEART FAILURE (7) Anemia Code(s): D64.9 - ANEMIA, UNSPECIFIED Qualifiers: Anemia type: unspecified type Qualified Code(s): D64.9 - Anemia, unspecified (8) CKD (chronic kidney disease) Code(s): N18.9 - CHRONIC KIDNEY DISEASE, UNSPECIFIED Qualifiers: Chronic kidney disease stage: stage 3 (moderate) Qualified Code(s): N18.3 - Chronic kidney disease, stage 3 (moderate) (9) Carotid artery disease Code(s): I77.9 - DISORDER OF ARTERIES AND ARTERIOLES, UNSPECIFIED Qualifiers: Laterality: unspecified laterality Qualified Code(s): I77.9 - Disorder of arteries and arterioles, unspecified (10) HTN (hypertension) Code(s): I10 - ESSENTIAL (PRIMARY) HYPERTENSION Qualifiers: Hypertension type: essential hypertension Qualified Code(s): I10 - Essential (primary) hypertension (11) Hypercholesterolemia Code(s): E78.0 - PURE HYPERCHOLESTEROLEMIA * DO NOT USE * Assessment/Plan 1. 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 CAD post CABG, angina pectoris 3. HTN 4. Insulin-dependent Type 2 DM 5. Hypercholesterolemia 6. Post ICD (Medtronic) for sustained ventricular tachycardia 7. Carotid stenosis 8. 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 Left shoulder and lower back pain after pivot into wheelchair referable to musculoskeletal strain 10. CKD 11. UTI PLAN: 1. Continue oral diuretics with close monitoring of renal function and electrolytes 2. Continue ASA 81 mg QD, Plavix 75 mg QD, Carvedilol 3.125 mg BID, Losartan 25 mg QD and Crestor 10 mg QHS 3. Risk modifications including dietary and medication compliance and analgesia as needed 4. Complete antibiotic course 5. Discharge planning if finished with antiobiotic course Further plans are to follow Keyon Fair MD
== END 2018-08-07 17:03 | disposition home health service (06) | DRG 291 ==
LOC: JER 16:09 → JERBED 08-02 01:06 → OBSVTOIN 08-02 09:16 → J4S 08-02 12:17
PROVIDERS: ADMIT Internal Medicine; ATTEND Internal Medicine
DX: I13.0 Hypertensive heart and chronic kidney disease with heart failure and stage 1 through stage 4 chronic kidney disease, or unspecified chronic kidney disease (principal); I50.23 Acute on chronic systolic (congestive) heart failure; J90 Pleural effusion, not elsewhere classified; I31.3 Pericardial effusion (noninflammatory); N39.0 Urinary tract infection, site not specified; J98.11 Atelectasis; S39.012A Strain of muscle, fascia and tendon of lower back, initial encounter; N18.3 Chronic kidney disease, stage 3 (moderate); J44.9 Chronic obstructive pulmonary disease, unspecified; E11.22 Type 2 diabetes mellitus with diabetic chronic kidney disease; I73.9 Peripheral vascular disease, unspecified; N40.1 Benign prostatic hyperplasia with lower urinary tract symptoms; Z95.1 Presence of aortocoronary bypass graft; Z98.61 Coronary angioplasty status; I25.119 Atherosclerotic heart disease of native coronary artery with unspecified angina pectoris; M54.9 Dorsalgia, unspecified; T14.90XA Injury, unspecified, initial encounter; X58.XXXA Exposure to other specified factors, initial encounter; Y93.9 Activity, unspecified; Y92.89 Other specified places as the place of occurrence of the external cause; Y99.9 Unspecified external cause status
CPT/HCPCS: 36415; 72131-TC; 73030-TC-LT-FY; 74176-TC; 80048; 80053; 81003; 81015; 82550; 82607; 82728; 82962; 83540; 83880; 84443; 84484; 85025; 87086; 93005; 93010; 93306-TC; 97116-GP; 97162-GP; 99284-25; G0378; J0131

== ENCOUNTER 2019-01-06 23:16 | Inpatient (IN) | payer OTHER, MEDICARE ==
[2019-01-06 23:47] VITALS: BMI 21.5
--- NOTE | 2019-01-07 00:32 | PDOC ---
History of Present Illness - History of Present Illness Initial Comments: 01/07/19 00:24 88 yo M with h/o IDDM, HLD, BPH, chronic systolic CHF with BL pleural effusions , CAD, CABG (2009), ICD placement for sustained , PAD, Left transmetatarsal amputation who p/w weakness. Patient and pt. at bedside to assist in report. reports patient with increased weakness and falls x 1 day. Increased weakness x 3 days. Patient reports difficulty with transfers from chair. Patient fell this morning, EMS on scene. Second fall this evening when attempting to transfer from chair. Patient being treated for UTI Bactrim BID x 8 days. Patient with hematuria intermittently beginning 01/05/19. Patient denies NUNO, vision change, palpitations, cough, wheezing, orthopena, PND , leg swelling/pain, N/V, F,C, CP, BPR, abdominal pain, diarrhea, constipation, lightheadedness, sensory changes. PMHx: as noted above ROS: as noted SHx: Denies Etoh, IVDA, tobacco use Allergies: NKDA Urology: Dr. Norton PMD: Dr. Joie Noonan <Kristopher Bermudez - Last Filed: 01/07/19 03:04> <Allyn Duran - Last Filed: 01/07/19 06:38> - General Chief Complaint: Weakness Stated Complaint: WEAKNESS Time Seen by Provider: 01/07/19 00:07 Past History - Past Medical History Anemia: Yes Asthma: No Cancer: No Cardiac Disorders: Yes (CAD, PVD, CABG, stents) COPD: No CHF: Yes Diabetes: Yes HTN: Yes Hypercholesterolemia: No Kidney Stones: Yes Thyroid Disease: No - Surgical History Abdominal Surgery: (gallbladder removal 2015) Appendectomy: No Cardiac Surgery: Yes (cabg x 3/defibrillator implant) Cholecystectomy: Yes Lung Surgery: No Neurologic Surgery: No Orthopedic Surgery: Yes (TMA L) - Immunization History Td Vaccination: No TDAP Vaccination: No Immunization Up to Date: Yes - Suicide/Smoking/Psychosocial Hx Smoking Status: No Smoking History: Former smoker Years of Tobacco Use: 50 Have you smoked in the past 12 months: No Number of Cigarettes Smoked Daily: 30 If you are a former smoker, when did you quit?: 2009 Cigars Per Day: 0 Information on smoking cessation initiated: No Hx Alcohol Use: No Drug/Substance Use Hx: No Substance Use Type: None Hx Substance Use Treatment: No <Kristopher Bermudez - Last Filed: 01/07/19 03:04> <DuranAllyn loza - Last Filed: 01/07/19 06:38> - Past Medical History Allergies/Adverse Reactions: Allergies Allergy/AdvReac Type Severity Reaction Status Date / Time No Known Allergies Allergy Verified 01/06/19 23:47 Home Medications: Ambulatory Orders Ascorbate Calcium [Vitamin C] 500 mg PO DAILY 01/20/14 Aspirin [ASA -] 81 mg PO DAILY 01/20/14 Carvedilol 3.125 mg PO BID 01/20/14 Clopidogrel Bisulfate [Plavix -] 75 mg PO DAILY 01/20/14 Folic Acid - 1 mg PO DAILY 01/20/14 Pregabalin [Lyrica -] 50 mg PO HS 01/20/14 Ranitidine HCl [Zantac] 150 mg PO HS 01/20/14 Tamsulosin HCl [Flomax -] 0.4 mg PO HS 01/20/14 Magnesium 250 mg PO DAILY 10/25/15 Levothyroxine [Synthroid -] 75 mcg PO MOTUWETH 07/21/16 Ergocalciferol (Vitamin D2) [Vitamin D2] 2,000 unit PO DAILY 06/09/17 Finasteride 0.05 mg PO DAILY 06/09/17 Furosemide [Lasix -] 20 mg PO DAILY 06/09/17 Insulin Glargine,Hum.rec.anlog [Lantus (10mL VIAL) -] 10 units SQ HS 06/09/17 Multivit-Min/FA/Lycopen/Lutein [Centrum Silver Tablet] 1 tab PO DAILY 06/09/17 Rosuvastatin Calcium 10 mg PO HS 06/09/17 Acetaminophen [Tylenol .Regular Strength -] 650 mg PO Q6H PRN tablet 08/07/18 Losartan Potassium [Cozaar -] 12.5 mg PO DAILY 01/06/19 Review of Systems - Review of Systems Comments:: 01/07/19 00:32 GENERAL/CONSTITUTIONAL: + Weakness. No fever or chills. HEAD, EYES, EARS, NOSE AND THROAT: No change in vision. No ear pain or discharge. No sore throat. CARDIOVASCULAR:+ SOB. No chest pain. RESPIRATORY: No cough, wheezing, or hemoptysis. GASTROINTESTINAL: No nausea, vomiting, diarrhea or constipation. GENITOURINARY: + Hematuria. No dysuria, frequency, or change in urination. MUSCULOSKELETAL: No joint or muscle swelling or pain. No neck or back pain. SKIN: No rash NEUROLOGIC: No headache, vertigo, loss of consciousness, or change in strength/ sensation. ENDOCRINE: No increased thirst. No abnormal weight change HEMATOLOGIC/LYMPHATIC: No anemia, easy bleeding, or history of blood clots. ALLERGIC/IMMUNOLOGIC: No hives or skin allergy. <Kristopher Bermudez - Last Filed: 01/07/19 03:04> *Physical Exam - Vital Signs Last Vital Signs Temp Pulse Resp BP Pulse Ox 98.0 F 60 16 132/100 93 L 01/06/19 23:35 01/06/19 23:35 01/06/19 23:35 01/06/19 23:35 01/06/19 23:35 - Physical Exam Comments: 01/07/19 00:32 GENERAL: Awake, alert, and fully oriented, in no acute distress HEAD: No signs of trauma, normocephalic, atraumatic EYES: PERRLA, EOMI, sclera anicteric, conjunctiva clear ENT: Auricles normal inspection, hearing grossly normal, nares patent, oropharynx clear without exudates. Moist mucosa NECK: Normal ROM, supple, no lymphadenopathy, JVD, or masses LUNGS: Coarse lung sounds BL LL bases. No distress, speaks full sentences. HEART: Regular rate and rhythm, normal S1 and S2, no murmurs, rubs or gallops, peripheral pulses normal and equal bilaterally. ABDOMEN: Soft, nontender, normoactive bowel sounds. No guarding, no rebound. No masses EXTREMITIES : + left below the ankle amputation. Normal inspection, Normal range of motion, no edema. No clubbing or cyanosis. NEUROLOGICAL: Cranial nerves II through XII grossly intact. Normal speech, no focal sensorimotor deficits SKIN: Warm, Dry, normal turgor, no rashes or lesions noted <Kristopher Bermudez - Last Filed: 01/07/19 03:04> - Vital Signs Last Vital Signs Temp Pulse Resp BP Pulse Ox 98.0 F 60 16 132/100 93 L 01/06/19 23:35 01/06/19 23:35 01/06/19 23:35 01/06/19 23:35 01/06/19 23:35 <Allyn Duran - Last Filed: 01/07/19 06:38> ED Treatment Course - LABORATORY CBC & Chemistry Diagram: 01/07/19 00:25 01/07/19 00:25 - RADIOLOGY Radiology Studies Ordered: Category Date Time Status CXRPORT [CHEST X-RAY PORTABLE*] [RAD] Stat Radiology 01/07/19 00:23 Ordered <Kristopher Bermudez - Last Filed: 01/07/19 03:04> - LABORATORY CBC & Chemistry Diagram: 01/07/19 00:25 01/07/19 03:20 - ADDITIONAL ORDERS Additional order review: Laboratory Results 01/07/19 01/07/19 01/07/19 00:25 00:25 00:25 PT with INR 13.80 H INR 1.17 H Sodium Cancelled Potassium Cancelled Chloride Cancelled Carbon Dioxide Cancelled Anion Gap Cancelled BUN Cancelled Creatinine Cancelled Est GFR (CKD-EPI)AfAm Cancelled Est GFR (CKD-EPI)NonAf Cancelled Random Glucose Cancelled Calcium Cancelled Total Bilirubin Cancelled AST Cancelled ALT Cancelled Alkaline Phosphatase Cancelled Creatine Kinase 229 Troponin I < 0.02 B-Natriuretic Peptide 9831.8 H Total Protein Cancelled Albumin Cancelled 01/07/19 00:25 RBC 2.53 L MCV 102.7 H MCHC 34.0 RDW 14.2 MPV 10.5 Neutrophils % 80.7 Lymphocytes % 6.3 L D Monocytes % 8.8 Eosinophils % 3.2 Basophils % 1.0 <Allyn Duran - Last Filed: 01/07/19 06:38> Medical Decision Making - Medical Decision Making 01/07/19 00:32 88 yo M with h/o IDDM, HLD, BPH, chronic systolic CHF with BL pleural effusions , CAD, CABG (2009), ICD placement for sustained , PAD, Left transmetatarsal amputation who p/w weakness, Andrews. Vitals wnl, AF, A&Ox3. Physical exam notable for Coarse lung sounds BL LL bases. Will assess for fluid/volume overload, VBI/ TIA, cardiac dysarrythmias, hypoglycemia, electrolyte abnml, metabolic and toxic derangements, acid-base disturbances, infection. Ed Course: Laboratory Tests 01/07/19 01/07/19 00:25 00:25 WBC 5.5 Hgb 8.8 L Hct 26.0 L Plt Count 176 D Troponin I < 0.02 B-Natriuretic Peptide 9831.8 H CXR with BL pleural effusions Lasix 20 mg EKG: Dual paced rhythm QTc 508, dual paced rhythm 01/07/19 01:38 BUN/Cr: 96.4/3.6 K+ 6.9 Na [address] Noonan by dr. Duran Admit to medicine Patient with CKD Patient on Bipap <Kristopher Bermudez - Last Filed: 01/07/19 03:04> - Medical Decision Making 01/07/19 01:11 Pt is anemic and he has elevated BNP of 9000 01/07/19 06:34 Pt's K+ came down to 6.4 within 30 min of giving D50 and Insulin; pt given a dose of kayexalate. Stable through the slot shift manager <Allyn Duran - Last Filed: 01/07/19 06:38> *DC/Admit/Observation/Transfer <Kristopher Bermudez - Last Filed: 01/07/19 03:04> - Discharge Dispostion Decision to Admit order: Yes <Allyn Duran - Last Filed: 01/07/19 06:38> Diagnosis at time of Disposition: Weakness, Hyperkalemia, Anemia, ASHLYN (acute kidney injury) - Discharge Dispostion Condition at time of disposition: Guarded
[2019-01-07 00:33] LABS: EOS % 3.2 % (0-4.5); HEMOGLOBIN 8.8 GM/dL (11.7-16.9); LYMPH % 6.3 % (8-40); MCH 34.9 pg (25.7-33.7); MEAN CELL VOLUME 102.7 fl (80-96); MEAN PLT VOLUME 10.5 fl (7.5-11.1); MONO % 8.8 % (3.8-10.2); NEUT % 80.7 % (42.8-82.8); PLATELET COUNT 176 K/MM3 (134-434); RBC 2.53 M/mm3 (4.00-5.60); RDW 14.2 % (11.9-15.9); WHITE BLOOD COUNT 5.5 K/mm3 (4.0-10.0)
[2019-01-07 00:45] LABS: INR 1.17 (0.83-1.09); PROTHROMBIN TIME (PATIENT) 13.8 SEC (9.7-13.0)
[2019-01-07 00:58] LABS: N-TERMINAL BNP 9831.8 pg/ml (5-450)
[2019-01-07] MEDS ORDERED: FUROSEMIDE 40 MG/4 ML INJECTABLE VIAL IVPUSH ONE (01:14)
[2019-01-07 01:34] LABS: ALBUMIN 3.4 g/dl (3.4-5.0); BILIRUBIN,TOTAL 0.3 mg/dL (0.2-1); BLOOD UREA NITROGEN 96.4 mg/dL (7-18); CALCIUM 8.2 mg/dL (8.5-10.1); CREATININE 3.6 mg/dL (0.55-1.3); TOT PROT 7.8 g/dl (6.4-8.2)
[2019-01-07 01:35] LABS: POTASSIUM 6.9 mmol/L (3.5-5.1)
[2019-01-07] MEDS ORDERED: DEXTROSE 50%-WATER - 25 GM/50 ML VIAL IVPUSH ONE (01:36)
[2019-01-07] MEDS ORDERED: INSULIN REGULAR HUMAN 100 UNITS/ML *VIAL IVPUSH ONE (01:36)
--- NOTE | 2019-01-07 02:24 | PDOC ---
Attending Attestation - Resident Resident Name: Kristopher Bermudez - ED Attending Attestation I have performed the following: I have examined & evaluated the patient, The case was reviewed & discussed with the resident, I agree w/resident's findings & plan - HPI HPI: 01/07/19 02:24 Pt comes with weakness; unable to walk stand and move as he usually does. - Physicial Exam PE: 01/07/19 04:56 Agree with resident exam. Pt is thin, and he has pallor of skin; Pt has left foot TMA; he has no pitting edema; pt has decreased muscle mass in his quadriceps. Pt has no fever and no localizing pain. He appears weak and tired. Pt is alert and awake. No distress. Pt has no flank or abd pain. - Medical Decision Making 01/07/19 03:39 Pt has hyperkalemia; along with weakness; he also has anemia. We treated with D50 and insulin. Pt will have a recheck of his CMP 01/07/19 03:39 BUN/Cr are 96 and 3.6 He was placed on Bipap and he will be hydrated a bit with saline 01/07/19 03:40 Pt's BNP is 9000; he usually runs btwn 5000 and 10,000. 01/07/19 03:41 Pt will be admitted to the hospitalist team. 01/07/19 03:42 Pt with SOB and BiPAP is helping 01/07/19 05:00 Pt will be hydrated as his BUN Cr are elevated and he has not really been eating much.
[2019-01-07] MEDS ORDERED: INSULIN REGULAR HUMAN 100 UNITS/ML *VIAL ONE (02:29)
[2019-01-07] MEDS ORDERED: DEXTROSE 50%-WATER - 25 GM/50 ML VIAL ONE (02:29)
[2019-01-07] MEDS ORDERED: FUROSEMIDE 40 MG/4 ML INJECTABLE VIAL ONE (02:29)
[2019-01-07] MEDS ORDERED: SODIUM CHLORIDE 0.9% 500 ML INFUS.BAG IV ONE (02:56)
[2019-01-07 04:00] LABS: BILIRUBIN,TOTAL 0.3 mg/dL (0.2-1); CALCIUM 7.7 mg/dL (8.5-10.1); CREATININE 3.6 mg/dL (0.55-1.3)
[2019-01-07 04:03] LABS: POTASSIUM 6.4 mmol/L (3.5-5.1)
[2019-01-07] MEDS ORDERED: SODIUM POLYSTYRENE SULFONATE 15 GM/60 ML BOTTLE PO ONE ×2 (04:04→08:45)
[2019-01-07] MEDS ORDERED: SODIUM POLYSTYRENE SULFONATE 15 GM/60 ML BOTTLE ONE (04:14)
[2019-01-07] MEDS ORDERED: ACETAMINOPHEN 325 MG TABLET (FP) PO PRN (08:20)
--- NOTE | 2019-01-07 08:27 | HP ---
Admitting History and Physical - Primary Care Physician PCP: Joie Noonan S - Admission Chief Complaint: weakness fall History of Present Illness: 88 yo M with h/o IDDM, HLD, BPH, chronic systolic CHF with BL pleural effusions , CAD, CABG (2009), ICD placement for sustained , PAD, Left transmetatarsal amputation who p/w weakness. Patient and pt. at bedside to assist in report. reports patient with increased weakness and falls x 1 day. Increased weakness x 3 days. Patient reports difficulty with transfers from chair. Patient fell this morning, EMS on scene. Second fall this evening when attempting to transfer from chair. Patient being treated for UTI Bactrim BID x 8 days. Patient with hematuria intermittently beginning 01/05/19. meds d/w pt is not on ASA nor plavix at this point b/o bruises History Source: Patient, Family Member, Significant Other, Medical Record Limitations to Obtaining History: No Limitations - Past Medical History Cardiovascular: Yes: CAD (CABG), HTN, Mitral Insufficiency, Other (ICD for induced ventricular tachycardia) Pulmonary: Yes: COPD Gastrointestinal: Yes: Other (recent C diff colitis, gallstones, chronic cholecystitis) Renal/: Yes: Renal Failure (had ARF last month in September creat bumped to 2), BPH, Renal Calculi Heme/Onc: Yes: Anemia Infectious Disease: Yes: C-Diff Musculoskeletal: Yes: Other (L foot wound s/p partial amputation) Endocrine: Yes: Diabetes Mellitus, Other (diabetic neuropathy) - Past Surgical History Past Surgical History: Yes: AICD, Amputation (TMA), Bypass, CABG - Smoking History Smoking history: Former smoker Have you smoked in the past 12 months: No Aproximately how many cigarettes per day: 30 If you are a former smoker, when did you quit?: 2009 - Alcohol/Substance Use Hx Alcohol Use: No History of Substance Use: reports: None - Social History Usual Living Arrangement: Yes: With Spouse ADL: Family Assistance History of Recent Travel: No Home Medications - Allergies Allergies/Adverse Reactions: Allergies Allergy/AdvReac Type Severity Reaction Status Date / Time No Known Allergies Allergy Verified 01/06/19 23:47 - Home Medications Home Medications: Ambulatory Orders Ascorbate Calcium [Vitamin C] 500 mg PO DAILY 01/20/14 Aspirin [ASA -] 81 mg PO DAILY 01/20/14 Carvedilol 3.125 mg PO BID 01/20/14 Clopidogrel Bisulfate [Plavix -] 75 mg PO DAILY 01/20/14 Folic Acid - 1 mg PO DAILY 01/20/14 Pregabalin [Lyrica -] 50 mg PO HS 01/20/14 Ranitidine HCl [Zantac] 150 mg PO HS 01/20/14 Tamsulosin HCl [Flomax -] 0.4 mg PO HS 01/20/14 Magnesium 250 mg PO DAILY 10/25/15 Levothyroxine [Synthroid -] 75 mcg PO MOTUWETH 07/21/16 Ergocalciferol (Vitamin D2) [Vitamin D2] 2,000 unit PO DAILY 06/09/17 Finasteride 0.05 mg PO DAILY 06/09/17 Furosemide [Lasix -] 20 mg PO DAILY 06/09/17 Insulin Glargine,Hum.rec.anlog [Lantus (10mL VIAL) -] 10 units SQ HS 06/09/17 Multivit-Min/FA/Lycopen/Lutein [Centrum Silver Tablet] 1 tab PO DAILY 06/09/17 Rosuvastatin Calcium 10 mg PO HS 06/09/17 Acetaminophen [Tylenol .Regular Strength -] 650 mg PO Q6H PRN tablet 08/07/18 Losartan Potassium [Cozaar -] 12.5 mg PO DAILY 01/06/19 Family Disease History - Family Disease History Family Disease History: Heart Disease: Mother, Brother (liver [place]), [place]: Brother Review of Systems - Review of Systems Constitutional: reports: Loss of Appetite, Unintentional Wgt. Loss, Weakness. denies: Chills, Diaphoresis, Fever, Lethargy Eyes: denies: Blind Spots, Blurred Vision, Double Vision, Eye Pain HENT: denies: Difficult Swallowing, Epistaxis Neck: denies: Stiffness, Tenderness Cardiovascular: denies: Chest Pain, Shortness of Breath Respiratory: denies: Cough, SOB Gastrointestinal: denies: Abdominal Pain, Constipation, Diarrhea, Melena, Rectal Bleeding, Vomiting Genitourinary: denies: Dysuria, Flank Pain Musculoskeletal: denies: Back Pain Neurological: denies: Change in LOC, Confusion, Dizziness Endocrine: denies: Excessive Sweating Hematology/Lymphatic: denies: Easily Bruised, Excessive Bleeding Psychiatric: denies: Anxiety, Depression Physical Examination Vital Signs: Vital Signs Temperature 98.0 F 01/06/19 23:35 Pulse Rate 60 01/06/19 23:35 Respiratory Rate 16 01/06/19 23:35 Blood Pressure 132/100 01/06/19 23:35 O2 Sat by Pulse Oximetry (%) 100 01/07/19 06:22 Constitutional: Yes: No Distress, Calm Eyes: Yes: Conjunctiva Clear HENT: Yes: Atraumatic Neck: Yes: Supple Cardiovascular: Yes: Regular Rate and Rhythm Respiratory: Yes: CTA Bilaterally Gastrointestinal: Yes: Soft. No: Tenderness Renal/: No: CVA Tenderness - Left, CVA Tenderness - Right, Hematuria Musculoskeletal: No: Joint Stiffness, Joint Swelling Extremities: Yes: Other (L foot amputation, small wounds seen by dr Small) . No: Cold, Cool Edema: No Integumentary: No: Rash, Venous Stasis Changes Neurological: Yes: WNL, Alert, Oriented, Weakness (general) ...Motor Strength: WNL Psychiatric: Yes: WNL, Alert, Oriented. No: Agitated, Suicidal Ideation Labs: CBC, BMP 01/07/19 00:25 01/07/19 03:20 Imaging - Results Chest X-ray: Report Reviewed Other: Report Reviewed Assessment/Plan 88 yo M with h/o IDDM, HLD, BPH, chronic systolic CHF with BL pleural effusions , CAD, CABG (2009), ICD placement for sustained , PAD, Left transmetatarsal amputation who p/w weakness. Patient and pt. at bedside to assist in report. reports patient with increased weakness and falls x 1 day. Increased weakness x 3 days. Patient reports difficulty with transfers from chair. Patient fell this morning, EMS on scene. Second fall this evening when attempting to transfer from chair. Patient being treated for UTI Bactrim BID x 8 days. Patient with hematuria intermittently beginning 01/05/19. in ER found to be anemic and hyper K admit; renal eval kayexalate po; f.u labs head CT dvt pfx fall pfx; d/wpt and
--- NOTE | 2019-01-07 09:55 | CON.CARD ---
Consult Consult Specialty:: Cardiology Referred by:: Joie Noonan MD Reason for Consultation:: Acute on CKD, hyperkalemia - History of Present Illness Chief Complaint: Weakness History of Present Illness: Patient is an 88 year old male with underlying history of CAD, CABG, PCI/stent, LV systolic dysfunction S/P ICD (Medtronic) for induced ventricular tachycardia most recent interrogation 06/27/2018, HTN, insulin dependent Type 2 diabetes mellitus, PAD with multiple revascularization and amputation, CKD and carotid stenosis, h/o cholecystemctomy presented with weakness, falls and difficulty with transfers. Noted to have acute on CKD, hyponatremia and hyperkalemia. He denies chest pain, dyspnea, palpitations, near or true syncope, orthopnea, PND or LE edema. He reports compliance with medications and diet. Last office visit 12/05/2018. Patient being treated for UTI Bactrim BID x 8 days. Patient with hematuria intermittently beginning 01/05/19. - History Source History Provided By: Patient Limitations to Obtaining History: No Limitations - Past Medical History Cardio/Vascular: Yes: CAD (CABG), HTN, Mitral Insufficiency, Other (ICD for induced ventricular tachycardia) Pulmonary: Yes: COPD Gastrointestinal: Yes: Other (recent C diff colitis, gallstones, chronic cholecystitis) Renal/: Yes: Renal Failure (had ARF last month in September creat bumped to 2), BPH, Renal Calculi Infectious Disease: Yes: C-Diff Musculoskeletal: Yes: Other (L foot wound s/p partial amputation) Endocrine: Yes: Diabetes Mellitus, Other (diabetic neuropathy) - Past Surgical History Past Surgical History: Yes: AICD, Amputation (TMA), Bypass, CABG - Alcohol/Substance Use Hx Alcohol Use: No History of Substance Use: reports: None - Smoking History Smoking history: Former smoker Have you smoked in the past 12 months: No Aproximately how many cigarettes per day: 30 If you are a former smoker, when did you quit?: 2009 - Social History Usual Living Arrangement: With Spouse ADL: Family Assistance History of Recent Travel: No Home Medications - Allergies Allergies/Adverse Reactions: Allergies Allergy/AdvReac Type Severity Reaction Status Date / Time No Known Allergies Allergy Verified 01/06/19 23:47 - Home Medications Home Medications: Ambulatory Orders Ascorbate Calcium [Vitamin C] 500 mg PO DAILY 01/20/14 Aspirin [ASA -] 81 mg PO DAILY 01/20/14 Carvedilol 3.125 mg PO BID 01/20/14 Clopidogrel Bisulfate [Plavix -] 75 mg PO DAILY 01/20/14 Folic Acid - 1 mg PO DAILY 01/20/14 Pregabalin [Lyrica -] 50 mg PO HS 01/20/14 Ranitidine HCl [Zantac] 150 mg PO HS 01/20/14 Tamsulosin HCl [Flomax -] 0.4 mg PO HS 01/20/14 Magnesium 250 mg PO DAILY 10/25/15 Levothyroxine [Synthroid -] 75 mcg PO MOTUWETH 07/21/16 Ergocalciferol (Vitamin D2) [Vitamin D2] 2,000 unit PO DAILY 06/09/17 Finasteride 0.05 mg PO DAILY 06/09/17 Furosemide [Lasix -] 20 mg PO DAILY 06/09/17 Insulin Glargine,Hum.rec.anlog [Lantus (10mL VIAL) -] 10 units SQ HS 06/09/17 Multivit-Min/FA/Lycopen/Lutein [Centrum Silver Tablet] 1 tab PO DAILY 06/09/17 Rosuvastatin Calcium 10 mg PO HS 06/09/17 Acetaminophen [Tylenol .Regular Strength -] 650 mg PO Q6H PRN tablet 08/07/18 Losartan Potassium [Cozaar -] 12.5 mg PO DAILY 01/06/19 Family Disease History - Family Disease History Family Disease History: Heart Disease: Mother, Brother (liver [place]), [place]: Brother Review of Systems - Review of Systems Constitutional: reports: Weakness Vital Signs: Vital Signs Temperature 98.0 F 01/06/19 23:35 Pulse Rate 60 01/06/19 23:35 Respiratory Rate 16 01/06/19 23:35 Blood Pressure 132/100 01/06/19 23:35 O2 Sat by Pulse Oximetry (%) 100 01/07/19 06:22 Constitutional: Yes: No Distress, Calm Neck: Yes: Supple Respiratory: Yes: Regular, Diminished, On BiPap Gastrointestinal: Yes: Soft, Hypoactive Bowel Sounds Cardiovascular: Yes: Regular Rate and Rhythm JVD: No Carotid Bruit: No Heart Sounds: Yes: S1, S2 Extremities: Yes: Amputation (Left TMA) Edema: No - Other Data Labs, Other Data: CBC, BMP 01/07/19 00:25 01/07/19 03:20 INR, PTT INR 1.17 (0.83-1.09) H 01/07/19 00:25 Troponin, BNP 01/07/19 00:25 Troponin I < 0.02 B-Natriuretic Peptide 9831.8 H Troponin, BNP 01/07/19 00:25 Troponin I < 0.02 B-Natriuretic Peptide 9831.8 H AV paced @ 60 Ejection Fraction %: LVEF > or = 40 % Imaging - Results Chest X-ray: Report Reviewed (Right effusion, right ATX) Problem List - Problems (1) ASHLYN (acute kidney injury) Code(s): N17.9 - ACUTE KIDNEY FAILURE, UNSPECIFIED (2) Anemia Code(s): D64.9 - ANEMIA, UNSPECIFIED Qualifiers: (3) Hyperkalemia Code(s): E87.5 - HYPERKALEMIA (4) Weakness Code(s): R53.1 - WEAKNESS (5) ASHD (arteriosclerotic heart disease) Code(s): I25.10 - ATHSCL HEART DISEASE OF [place] CORONARY ARTERY W/O ANG PCTRS (6) CAD (coronary artery disease) Code(s): I25.10 - ATHSCL HEART DISEASE OF [place] CORONARY ARTERY W/O ANG PCTRS Qualifiers: Coronary Disease-Associated Artery/Lesion type: [place] artery [place] vs. transplanted heart: [place] heart Associated angina: without angina Qualified Code(s): I25.10 - Atherosclerotic heart disease of [place] coronary artery without angina pectoris (7) CHF (congestive heart failure) Code(s): I50.9 - HEART FAILURE, UNSPECIFIED (8) CKD (chronic kidney disease) Code(s): N18.9 - CHRONIC KIDNEY DISEASE, UNSPECIFIED Qualifiers: Chronic kidney disease stage: stage 3 (moderate) Qualified Code(s): N18.3 - Chronic kidney disease, stage 3 (moderate) (9) Chronic systolic heart failure Code(s): I50.22 - CHRONIC SYSTOLIC (CONGESTIVE) HEART FAILURE (10) Diabetes mellitus Code(s): E11.9 - TYPE 2 DIABETES MELLITUS WITHOUT COMPLICATIONS Qualifiers: Diabetes mellitus type: type 2 Chronic kidney disease stage: stage 2 (mild ) (11) HTN (hypertension) Code(s): I10 - ESSENTIAL (PRIMARY) HYPERTENSION Qualifiers: Hypertension type: essential hypertension Qualified Code(s): I10 - Essential (primary) hypertension (12) History of implantable cardiac defibrillator (ICD) Code(s): [id number] - (13) Hx of CABG Code(s): Z95.1 - PRESENCE OF AORTOCORONARY BYPASS GRAFT (14) Hypercholesterolemia Code(s): E78.0 - PURE HYPERCHOLESTEROLEMIA * DO NOT USE * (15) Hypothyroidism Code(s): E03.9 - HYPOTHYROIDISM, UNSPECIFIED Qualifiers: Hypothyroidism type: unspecified Qualified Code(s): E03.9 - Hypothyroidism , unspecified (16) ICD (implantable cardioverter-defibrillator) in place Code(s): Z95.810 - PRESENCE OF AUTOMATIC (IMPLANTABLE) CARDIAC DEFIBRILLATOR (17) Peripheral arterial disease Code(s): I73.9 - PERIPHERAL VASCULAR DISEASE, UNSPECIFIED (18) Systolic dysfunction with acute on chronic heart failure Code(s): I50.23 - ACUTE ON CHRONIC SYSTOLIC (CONGESTIVE) HEART FAILURE Assessment/Plan 07/21/2016 Echo: Moderate dilated with mild-mod decreased LV fxn, pacer RV, mild LAE, mod MR, mild TR 08/01/[address]: Mod bilateral effusions R>L, small pericardial effusions 08/02/2018 Echo: Mild-mod decreased LVEF 40-45%, normal RV size and fxn, mild LAE, mild MR, tr TR, [place], [place]. No pericardial effusion 1. Acute on CKD with hyperkalemia and hyponatremia in context of diuretic, ARB and Bactrim use 2. Chronic LV systolic failure with pleural effusions referable to dietary indiscretion 3. CAD post CABG, angina pectoris 3. HTN 4. Insulin-dependent Type 2 DM 5. Hypercholesterolemia 6. Post ICD (Medtronic) for sustained ventricular tachycardia 7. Carotid stenosis 8. PAD post MILL RECORDER and amputation (TMA) 9. Hypothyroidism PLAN: 1. Hold Lasix and losartan with close monitoring of renal recovery, hyponatremia and hyperkalemia, judicious hydration, r/o obstruction 2. Continue ASA 81 mg QD, Plavix 75 mg QD, Carvedilol 3.125 mg BID, and Crestor 10 mg QHS 3. Wean FIO2 as tolerated, bipap as needed 4. Thank you for consultative oppportunity
[2019-01-07] MEDS ORDERED: CLOPIDOGREL BISULFATE 75 MG TABLET (FP) PO SCH (10:00)
[2019-01-07] MEDS ORDERED: PT OWN MED DRAWER 7, Y5N ONE (10:11)
[2019-01-07] MEDS ORDERED: LEVOTHYROXINE NA 25 MCG TABLET (FP) ONE (10:17)
[2019-01-07] MEDS ORDERED: CARVEDILOL 3.125 MG TABLET (FP) ONE ×2 (10:17→21:23)
[2019-01-07] MEDS ORDERED: ASPIRIN 81 MG CHEWABLE TABLETS ONE (10:17)
[2019-01-07] MEDS ORDERED: FOLIC ACID 1 MG TABLET (FP) ONE (10:18)
[2019-01-07] MEDS ORDERED: CLOPIDOGREL BISULFATE 75 MG TABLET (FP) ONE (10:18)
--- NOTE | 2019-01-07 10:34 | EKG ---
Test Reason : Blood Pressure : / mmHG Vent. Rate : 060 BPM Atrial Rate : 065 BPM P-R Int : 188 ms QRS Dur : 196 ms QT Int : 508 ms P-R-T Axes : 000 -75 114 degrees QTc Int : 508 ms AV dual-paced rhythm ABNORMAL ECG WHEN COMPARED WITH ECG OF 02-AUG-2018 01:10, PREMATURE VENTRICULAR COMPLEXES ARE NO LONGER PRESENT VENT. RATE HAS DECREASED BY 6 BPM Confirmed by RANCHO LARSEN, JIMENA ([id number]) on 01/07/2019 10:34:12 AM Referred By: Confirmed By:JIMENA VICKERS MD
[2019-01-07] MEDS: CARVEDILOL 3.125 MG TABLET (FP) PO SCH ×2 (10:40→21:39)
[2019-01-07] MEDS: ASPIRIN 81 MG CHEWABLE TABLETS PO SCH (10:40)
[2019-01-07] MEDS: FOLIC ACID 1 MG TABLET (FP) PO SCH (10:40)
[2019-01-07] MEDS: LEVOTHYROXINE NA 75 MCG TABLET (FP) PO SCH (10:41)
--- NOTE | 2019-01-07 11:21 | CONSULT ---
Consult - text type - Consultation Consultation Note: Renal consult for ASHLYN on CKD and hyperkalemia This is a 88 year old gentleman wtih hx of CAD, CABG, PIC, LV dysfunction, PPM, Hypertension, CKD, Carotid stenosis, BPH with urinary retention who presented from home with weakness and falls and found to have hyperkalemia and ASHLYN. Pt is awake and alert. Denies any pain, sob, cp, fever or chills. Reports he is making urine but only a little at at time. Denies any NSAID use. Unsure if he was on antibiotics. No flank pain, hematuria, dysuria. No NUNO or confusion. PMHx: as above Allergies: NKDA Family Hx: NC Social Hx: No T/A/D ROS: As per HPI, all other pertinent ros negative Home Medications Medication Instructions Recorded Ascorbate Calcium [Vitamin C] 500 mg PO DAILY 01/20/14 Aspirin [ASA -] 81 mg PO DAILY 01/20/14 Carvedilol 3.125 mg PO BID 01/20/14 Clopidogrel Bisulfate [Plavix -] 75 mg PO DAILY 01/20/14 Folic Acid - 1 mg PO DAILY 01/20/14 Pregabalin [Lyrica -] 50 mg PO HS 01/20/14 Ranitidine HCl [Zantac] 150 mg PO HS 01/20/14 Tamsulosin HCl [Flomax -] 0.4 mg PO HS 01/20/14 Magnesium 250 mg PO DAILY 10/25/15 Levothyroxine [Synthroid -] 75 mcg PO MOTUWETH 07/21/16 Ergocalciferol (Vitamin D2) 2,000 unit PO DAILY 06/09/17 [Vitamin D2] Finasteride 0.05 mg PO DAILY 06/09/17 Furosemide [Lasix -] 20 mg PO DAILY 06/09/17 Insulin Glargine,Hum.rec.anlog 10 units SQ HS 06/09/17 [Lantus (10mL VIAL) -] Multivit-Min/FA/Lycopen/Lutein 1 tab PO DAILY 06/09/17 [Centrum Silver Tablet] Rosuvastatin Calcium 10 mg PO HS 06/09/17 Acetaminophen [Tylenol .Regular 650 mg PO Q6H PRN tablet 08/07/18 Strength -] Losartan Potassium [Cozaar -] 12.5 mg PO DAILY 01/06/19 Vital Signs Temperature 98.0 F 01/06/19 23:35 Pulse Rate 60 01/06/19 23:35 Respiratory Rate 16 01/06/19 23:35 Blood Pressure 132/100 01/06/19 23:35 O2 Sat by Pulse Oximetry (%) 100 01/07/19 06:22 Intake & Output 01/04/19 01/05/19 01/06/19 01/07/19 23:59 23:59 23:59 23:59 Weight 68.039 kg NAD awake and alert neck supple no JVD RRR Dec BS, no overt raltes soft NT, mild distension over lower abdomen no LE edema CBC, BMP 01/07/19 00:25 01/07/19 03:20 Laboratory Tests 01/07/19 01/07/19 00:25 03:20 Est GFR (CKD-EPI)AfAm 16.60 Calcium 7.7 L Creatine Kinase 229 Albumin 3.0 L CXR - right pleural effusion Current Medications Acetaminophen (Tylenol -) 650 mg PO Q6H PRN PRN Reason: PAIN 1-3 Aspirin (Asa -) 81 mg PO DAILY [facility] Last Admin: 01/07/19 10:40 Dose: 81 mg Carvedilol (Coreg -) 3.125 mg PO BID [facility] Last Admin: 01/07/19 10:40 Dose: 3.125 mg Clopidogrel Bisulfate (Plavix -) 75 mg PO DAILY [facility] Last Admin: 01/07/19 10:41 Dose: 75 mg Folic Acid (Folic Acid -) 1 mg PO DAILY [facility] Last Admin: 01/07/19 10:40 Dose: 1 mg Insulin Detemir (Levemir Vial) 10 units SQ HS [facility] Levothyroxine Sodium (Synthroid -) 75 mcg PO [id number] [facility] Last Admin: 01/07/19 10:41 Dose: 75 mcg Non-Formulary Medication (Finasteride [Finasteride]) 0.05 mg PO DAILY [facility] Pregabalin (Lyrica -) 50 mg PO HS [facility] Ranitidine HCl (Zantac -) 150 mg PO HS [facility] Rosuvastatin Calcium (Crestor -) 10 mg PO HS [facility] Tamsulosin HCl (Flomax -) 0.4 mg PO HS [facility] 88 year old gentleman wtih hx of CAD, CABG, PIC, LV dysfunction, PPM, Hypertension, CKD, Carotid stenosis, BPH with urinary retention who presented from home with weakness and falls and found to have hyperkalemia and ASHLYN. #ASHLYN on CKD suspect due to urinary retention vs. volume depletion +/- Bactrium related injury #CKD #Hyperkalemia #CAD #Cardiomyopathy #Right pleural effusion #Falls/weakness s/p medical mangement of hyperkalemia in the ED Repeat K this afternoon Check kidney and bladder US, place pulliam for suspected retention will discuss with cardiology if we can give gentle hydration hold diuretics and ARB for now continue flomax no acute indication for REWEAVER Thank you Oscar [place] DO
--- NOTE | 2019-01-07 13:14 | CON.PULM ---
Consult Consult Specialty:: PULM/CCM Referred by:: VALENTE Reason for Consultation:: SOB - History of Present Illness Chief Complaint: SOB History of Present Illness: 88 M, CAD, CABG, PCI/stent, LV systolic dysfunction S/P ICD (Medtronic) for induced ventricular tachycardia, HTN, insulin dependent diabetes mellitus, PAD with multiple revascularizations and amputation, CKD, carotid stenosis, h/o cholecystemctomy, and chronic right effusion. Admitted via the ER due to weakness and falls. He denies chest pain, cough, sputum production, but does have some chronic FLORES. No fever or chills. No hemoptysis. Initially placed on NIPPV but now on NC O2 and is in NAD. CXR: right pleural effusion / fluid in the fissure - History Source History Provided By: Medical Record Limitations to Obtaining History: Poor Historian - Past Medical History Cardio/Vascular: Yes: CAD (CABG), HTN, Mitral Insufficiency, Other (ICD for induced ventricular tachycardia) Pulmonary: Yes: COPD Gastrointestinal: Yes: Other (recent C diff colitis, gallstones, chronic cholecystitis) Renal/: Yes: Renal Failure (had ARF last month in September creat bumped to 2), BPH, Renal Calculi Infectious Disease: Yes: C-Diff Musculoskeletal: Yes: Other (L foot wound s/p partial amputation) Endocrine: Yes: Diabetes Mellitus, Other (diabetic neuropathy) - Past Surgical History Past Surgical History: Yes: AICD, Amputation (TMA), Bypass, CABG - Alcohol/Substance Use Hx Alcohol Use: No History of Substance Use: reports: None - Smoking History Smoking history: Former smoker Have you smoked in the past 12 months: No Aproximately how many cigarettes per day: 30 If you are a former smoker, when did you quit?: 2009 - Social History Usual Living Arrangement: With Spouse ADL: Family Assistance History of Recent Travel: No Home Medications - Allergies Allergies/Adverse Reactions: Allergies Allergy/AdvReac Type Severity Reaction Status Date / Time No Known Allergies Allergy Verified 01/06/19 23:47 - Home Medications Home Medications: Ambulatory Orders Ascorbate Calcium [Vitamin C] 500 mg PO DAILY 01/20/14 Aspirin [ASA -] 81 mg PO DAILY 01/20/14 Carvedilol 3.125 mg PO BID 01/20/14 Clopidogrel Bisulfate [Plavix -] 75 mg PO DAILY 01/20/14 Folic Acid - 1 mg PO DAILY 01/20/14 Pregabalin [Lyrica -] 50 mg PO HS 01/20/14 Ranitidine HCl [Zantac] 150 mg PO HS 01/20/14 Tamsulosin HCl [Flomax -] 0.4 mg PO HS 01/20/14 Magnesium 250 mg PO DAILY 10/25/15 Levothyroxine [Synthroid -] 75 mcg PO MOTUWETH 07/21/16 Ergocalciferol (Vitamin D2) [Vitamin D2] 2,000 unit PO DAILY 06/09/17 Finasteride 0.05 mg PO DAILY 06/09/17 Furosemide [Lasix -] 20 mg PO DAILY 06/09/17 Insulin Glargine,Hum.rec.anlog [Lantus (10mL VIAL) -] 10 units SQ HS 06/09/17 Multivit-Min/FA/Lycopen/Lutein [Centrum Silver Tablet] 1 tab PO DAILY 06/09/17 Rosuvastatin Calcium 10 mg PO HS 06/09/17 Acetaminophen [Tylenol .Regular Strength -] 650 mg PO Q6H PRN tablet 08/07/18 Losartan Potassium [Cozaar -] 12.5 mg PO DAILY 01/06/19 Family Disease History - Family Disease History Family Disease History: Heart Disease: Mother, Brother (liver CA), CA: Brother Review of Systems Unable to obtain ROS, reason: cannot provide Physical Exam Vital Sings: Vital Signs Temperature 98.0 F 01/06/19 23:35 Pulse Rate 60 01/06/19 23:35 Respiratory Rate 16 01/06/19 23:35 Blood Pressure 132/100 01/06/19 23:35 O2 Sat by Pulse Oximetry (%) 100 01/07/19 06:22 Constitutional: Yes: Thin Eyes: Yes: Conjunctiva Clear, EOM Intact HENT: Yes: Atraumatic, Normocephalic Neck: Yes: Supple Cardiovascular: Yes: Regular Rate and Rhythm Respiratory: Yes: Cough, Diminished, On Nasal O2, Rales, Rhonchi, SOB on Exertion. No: Stridor, Tachypnea, Wheezes ...Inspection: Yes: WNL ...Clubbing: No Gastrointestinal: Yes: Normal Bowel Sounds, Soft Renal/: Yes: WNL Musculoskeletal: Yes: WNL Extremities: Yes: WNL Peripheral Pulses WNL: No Integumentary: Yes: WNL Neurological: Yes: Confusion Labs: CBC, BMP 01/07/19 00:25 01/07/19 03:20 Imaging - Results Chest X-ray: Report Reviewed, Image Reviewed Problem List - Problems (1) Anemia Code(s): D64.9 - ANEMIA, UNSPECIFIED Qualifiers: (2) Hyperkalemia Code(s): E87.5 - HYPERKALEMIA (3) Weakness Code(s): R53.1 - WEAKNESS (4) ASHD (arteriosclerotic heart disease) Code(s): I25.10 - ATHSCL HEART DISEASE OF [place] CORONARY ARTERY W/O ANG PCTRS (5) Acute on chronic systolic (congestive) heart failure Code(s): I50.23 - ACUTE ON CHRONIC SYSTOLIC (CONGESTIVE) HEART FAILURE (6) CAD (coronary artery disease) Code(s): I25.10 - ATHSCL HEART DISEASE OF [place] CORONARY ARTERY W/O ANG PCTRS Qualifiers: Coronary Disease-Associated Artery/Lesion type: [place] artery [place] vs. transplanted heart: [place] heart Associated angina: without angina Qualified Code(s): I25.10 - Atherosclerotic heart disease of [place] coronary artery without angina pectoris (7) CHF (congestive heart failure) Code(s): I50.9 - HEART FAILURE, UNSPECIFIED (8) CKD (chronic kidney disease) Code(s): N18.9 - CHRONIC KIDNEY DISEASE, UNSPECIFIED Qualifiers: Chronic kidney disease stage: stage 3 (moderate) Qualified Code(s): N18.3 - Chronic kidney disease, stage 3 (moderate) (9) COPD (chronic obstructive pulmonary disease) Code(s): J44.9 - CHRONIC OBSTRUCTIVE PULMONARY DISEASE, UNSPECIFIED Qualifiers: COPD type: chronic bronchitis (10) Carotid artery disease Code(s): I77.9 - DISORDER OF ARTERIES AND ARTERIOLES, UNSPECIFIED Qualifiers: Laterality: unspecified laterality Qualified Code(s): I77.9 - Disorder of arteries and arterioles, unspecified (11) Chronic cholecystitis Code(s): K81.1 - CHRONIC CHOLECYSTITIS (12) Chronic systolic heart failure Code(s): I50.22 - CHRONIC SYSTOLIC (CONGESTIVE) HEART FAILURE (13) Diabetes mellitus Code(s): E11.9 - TYPE 2 DIABETES MELLITUS WITHOUT COMPLICATIONS Qualifiers: Diabetes mellitus type: type 2 Chronic kidney disease stage: stage 2 (mild ) (14) Elevated liver function tests Code(s): R79.89 - OTHER SPECIFIED ABNORMAL FINDINGS OF BLOOD CHEMISTRY (15) HTN (hypertension) Code(s): I10 - ESSENTIAL (PRIMARY) HYPERTENSION Qualifiers: Hypertension type: essential hypertension Qualified Code(s): I10 - Essential (primary) hypertension (16) History of implantable cardiac defibrillator (ICD) Code(s): [id number] - (17) Hx of CABG Code(s): Z95.1 - PRESENCE OF AORTOCORONARY BYPASS GRAFT (18) Hypercholesterolemia Code(s): E78.0 - PURE HYPERCHOLESTEROLEMIA * DO NOT USE * (19) Hypothyroidism Code(s): E03.9 - HYPOTHYROIDISM, UNSPECIFIED Qualifiers: Hypothyroidism type: unspecified Qualified Code(s): E03.9 - Hypothyroidism , unspecified (20) ICD (implantable cardioverter-defibrillator) in place Code(s): Z95.810 - PRESENCE OF AUTOMATIC (IMPLANTABLE) CARDIAC DEFIBRILLATOR (21) Peripheral arterial disease Code(s): I73.9 - PERIPHERAL VASCULAR DISEASE, UNSPECIFIED (22) Pleural effusion Code(s): J90 - PLEURAL EFFUSION, NOT ELSEWHERE CLASSIFIED Assessment/Plan Do not suspect infection. Follow CXR O2 as needed NIPPV as needed Diuretics may be needed of effusion worsens Aspiration precautions Will follow Thank you. Dr Diggs
[2019-01-07 14:59] LABS: BLOOD UREA NITROGEN 96.9 mg/dL (7-18); CALCIUM 8.5 mg/dL (8.5-10.1); CREATININE 3.5 mg/dL (0.55-1.3); POTASSIUM 5.1 mmol/L (3.5-5.1)
[2019-01-07 19:50] LABS: HYALINE CASTS 7 /lpf (0-8); URINE APPEARANCE CLEAR; URINE BACTERIA 2.4 /hpf (NEGATIVE); URINE BILIRUBIN NEGATIVE (NEGATIVE); URINE COLOR YELLOW; URINE GLUCOSE (UA) NEGATIVE (NEGATIVE); URINE KETONE NEGATIVE (NEGATIVE); URINE LEUK ESTERASE 2+ (NEGATIVE); URINE NITRITE NEGATIVE (NEGATIVE); URINE PROTEIN NEGATIVE (NEGATIVE); URINE RBC 2 /hpf (0-4); URINE UROBILINOGEN 0.2 mg/dL (0.2-1.0); URINE WBC 26 /hpf (0-5)
[2019-01-07] MEDS ORDERED: PREGABALIN 50 MG CAPSULE ONE (21:22)
[2019-01-07] MEDS ORDERED: TAMSULOSIN HCL 0.4 MG CAP ONE (21:23)
[2019-01-07] MEDS ORDERED: RANITIDINE HCL 150 MG TABLET (FP) ONE (21:23)
[2019-01-07] MEDS ORDERED: INSULIN (LEVEMIR) 100 UNITS/ML UNITS SQ ONE (21:24)
[2019-01-07] MEDS: PREGABALIN 50 MG CAPSULE PO SCH (21:40)
[2019-01-07] MEDS: INSULIN (LEVEMIR) 100 UNITS/ML UNITS SQ SCH (21:40)
[2019-01-07] MEDS: RANITIDINE HCL 150 MG TABLET (FP) PO SCH (21:40)
[2019-01-07] MEDS: TAMSULOSIN HCL 0.4 MG CAP PO SCH (21:40)
[2019-01-08] MEDS: ROSUVASTATIN CA 10 MG TABLET (FP) PO SCH ×2 (00:10→22:26)
[2019-01-08] MEDS: LEVOTHYROXINE NA 75 MCG TABLET (FP) PO SCH (06:23)
--- NOTE | 2019-01-08 06:57 | PN ---
Progress Note (short form) - Note Progress Note: Chief Complaint: Events noted, notes reviewed, denies any chest pain or dyspnea , complaining of lower extremity weakness History of Present Illness: See and examined on telemetry. Events noted, notes reviewed, denies any chest pain or dyspnea, complaining of lower extremity weakness Medications: Current Medications Acetaminophen (Tylenol -) 650 mg PO Q6H PRN PRN Reason: PAIN 1-3 Aspirin (Asa -) 81 mg PO DAILY [facility] Last Admin: 01/07/19 10:40 Dose: 81 mg Carvedilol (Coreg -) 3.125 mg PO BID [facility] Last Admin: 01/07/19 21:39 Dose: 3.125 mg Folic Acid (Folic Acid -) 1 mg PO DAILY [facility] Last Admin: 01/07/19 10:40 Dose: 1 mg Heparin Sodium (Porcine) (Heparin -) 5,000 unit SQ BID [facility] Insulin Detemir (Levemir Vial) 10 units SQ [facility] Last Admin: 01/07/19 21:40 Dose: 10 unit Levothyroxine Sodium (Synthroid -) 75 mcg PO MoTuWeTh@0700 [facility] Last Admin: 01/08/19 06:23 Dose: 75 mcg Non-Formulary Medication (Finasteride [Finasteride]) 0.05 mg PO DAILY [facility] Pregabalin (Lyrica -) 50 mg PO [facility] Last Admin: 01/07/19 21:40 Dose: 50 mg Ranitidine HCl (Zantac -) 150 mg PO [facility] Last Admin: 01/07/19 21:40 Dose: 150 mg Rosuvastatin Calcium (Crestor -) 10 mg PO [facility] Last Admin: 01/08/19 00:10 Dose: 10 mg Tamsulosin HCl (Flomax -) 0.4 mg PO [facility] Last Admin: 01/07/19 21:40 Dose: 0.4 mg Review of Systems Cardiovascular: As noted above Respiratory: denies: denies: Cough or Sputum Production Gastrointestinal: denies: Nausea, Vomiting, Diarrhea, Constipation or Abdominal Discomfort Musculoskeletal: As noted above Endocrine: No Symptoms Reported Vital Signs: Last Vital Signs Temp Pulse Resp BP Pulse Ox 98.7 F 72 18 108/55 L 97 01/08/19 06:00 01/08/19 06:00 01/08/19 06:00 01/08/19 06:00 01/08/19 00:28 Intake & Output 01/05/19 01/06/19 01/07/19 01/08/19 23:59 23:59 23:59 23:59 Output Total 100 Balance -100 Weight 150 lb Neck: Supple Negative JVD Respiratory: Diminished Breath Sounds at the Bases Cardiovascular: S! S2 Regular Rate and Rhythm Gastrointestinal: Soft Benign Normal Bowel Sounds Ext: Negative Edema Labs: CBC, BMP 01/07/19 00:25 01/07/19 13:00 Hepatic Panel Total Bilirubin 0.3 mg/dL (0.2-1) 01/07/19 03:20 AST 24 U/L (15-37) 01/07/19 03:20 ALT 31 U/L (13-61) 01/07/19 03:20 Alkaline Phosphatase 104 U/L (45-117) 01/07/19 03:20 Albumin 3.0 g/dl (3.4-5.0) L 01/07/19 03:20 INR, PTT INR 1.17 (0.83-1.09) H 01/07/19 00:25 Assessment/Plan ASSESSMENT: 1. Acute on CKD with hyperkalemia and hyponatremia improved 2. Systolic/diastolic LV dysfunction with clinical class I-II NYHA classification LV failure, compensated/euvolemic 3. CAD post CABG, angina pectoris 4. HTN 5. NIDDM 6. Hypercholesterolemia 7. 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 Carotid stenosis 9. Hypothyroidism 10. PAD post TECHNICAL REP and amputation (TMA) PLAN: 1. Continue to hold Lasix and Cozaar therapies pending renal function recovery 2. Continue ASA +/- Plavix 3. Continue Carvedilol hemodynamics permitting 4. Continue Crestor 5. Initiate PT Donnie Carbajal MD
[2019-01-08 07:36] LABS: BASO % 0.6 % (0-2.0); EOS % 3.7 % (0-4.5); HEMATOCRIT 22.7 % (35.4-49); HEMOGLOBIN 7.8 GM/dL (11.7-16.9); LYMPH % 5.1 % (8-40); MCH 34.5 pg (25.7-33.7); MCHC 34.2 g/dl (32.0-35.9); MEAN CELL VOLUME 101.1 fl (80-96); MEAN PLT VOLUME 9.7 fl (7.5-11.1); NEUT % 79.6 % (42.8-82.8); PLATELET COUNT 86 K/MM3 (134-434); RBC 2.25 M/mm3 (4.00-5.60); RDW 13.6 % (11.9-15.9); WHITE BLOOD COUNT 4.9 K/mm3 (4.0-10.0)
--- NOTE | 2019-01-08 07:54 | PN ---
Progress Note, Physician Chief Complaint: in bed NAD feels better; recevied IVF; K and creatinine better but H&H and PLT lower; will call heme also L stump wounds: vascular eval - Current Medication List Current Medications: Active Medications Acetaminophen (Tylenol -) 650 mg PO Q6H PRN PRN Reason: PAIN 1-3 Aspirin (Asa -) 81 mg PO DAILY [facility] Last Admin: 01/07/19 10:40 Dose: 81 mg Carvedilol (Coreg -) 3.125 mg PO BID [facility] Last Admin: 01/07/19 21:39 Dose: 3.125 mg Folic Acid (Folic Acid -) 1 mg PO DAILY [facility] Last Admin: 01/07/19 10:40 Dose: 1 mg Heparin Sodium (Porcine) (Heparin -) 5,000 unit SQ BID [facility] Insulin Detemir (Levemir Vial) 10 units SQ [facility] Last Admin: 01/07/19 21:40 Dose: 10 unit Levothyroxine Sodium (Synthroid -) 75 mcg PO MoTuWeTh@0700 [facility] Last Admin: 01/08/19 06:23 Dose: 75 mcg Non-Formulary Medication (Finasteride [Finasteride]) 0.05 mg PO DAILY [facility] Pregabalin (Lyrica -) 50 mg PO [facility] Last Admin: 01/07/19 21:40 Dose: 50 mg Ranitidine HCl (Zantac -) 150 mg PO [facility] Last Admin: 01/07/19 21:40 Dose: 150 mg Rosuvastatin Calcium (Crestor -) 10 mg PO [facility] Last Admin: 01/08/19 00:10 Dose: 10 mg Tamsulosin HCl (Flomax -) 0.4 mg PO [facility] Last Admin: 01/07/19 21:40 Dose: 0.4 mg - Objective Vital Signs: Vital Signs Temperature 98.7 F 01/08/19 06:00 Pulse Rate 72 01/08/19 06:00 Respiratory Rate 18 01/08/19 06:00 Blood Pressure 108/55 L 01/08/19 06:00 O2 Sat by Pulse Oximetry (%) 97 01/08/19 00:28 Constitutional: Yes: No Distress, Calm Eyes: Yes: Conjunctiva Clear HENT: Yes: Atraumatic Neck: Yes: Supple Cardiovascular: Yes: Regular Rate and Rhythm Respiratory: Yes: CTA Bilaterally Gastrointestinal: Yes: Soft. No: Tenderness Genitourinary: No: CVA Tenderness - Left, CVA Tenderness - Right Musculoskeletal: No: Joint Stiffness, Joint Swelling Extremities: No: Cold, Cool, Cyanosis Edema: No Integumentary: No: Rash, Venous Stasis Changes Neurological: Yes: WNL, Alert, Oriented ...Motor Strength: WNL Psychiatric: Yes: WNL, Alert, Oriented. No: Agitated, Suicidal Ideation Labs: INR, PTT INR 1.17 (0.83-1.09) H 01/07/19 00:25 - ....Imaging Other: Report Reviewed Assessment/Plan 88 yo M with h/o IDDM, HLD, BPH, chronic systolic CHF with BL pleural effusions , CAD, CABG (2009), ICD placement for sustained , PAD, Left transmetatarsal amputation admitted with weakness ad falls. s/p recent tx for UTI Bactrim BID x 8 days. Patient with hematuria intermittently beginning 01/05/19. in ER found to be anemic and hyper K renal f/u f.u labs wound care per vascular sx anemia w/u; low PLT on heparin: DC sq heparin, check antibodies, heme eval; head CT noted; CXR noted, chest CT ordered; dvt pfx; fall pfx; d/w pt and staff
[2019-01-08 08:11] LABS: ALBUMIN 2.7 g/dl (3.4-5.0); BILIRUBIN,TOTAL 0.4 mg/dL (0.2-1); BLOOD UREA NITROGEN 84.8 mg/dL (7-18); MAGNESIUM 2.7 mg/dL (1.8-2.4); PHOSPHOROUS 4.4 mg/dL (2.5-4.9); POTASSIUM 4.4 mmol/L (3.5-5.1); TOT PROT 6.6 g/dl (6.4-8.2)
[2019-01-08] MEDS: CARVEDILOL 3.125 MG TABLET (FP) PO SCH ×2 (09:57→22:26)
[2019-01-08] MEDS: FOLIC ACID 1 MG TABLET (FP) PO SCH (09:57)
[2019-01-08] MEDS: ASPIRIN 81 MG CHEWABLE TABLETS PO SCH (09:57)
[2019-01-08] MEDS ORDERED: HEPARIN NA (PORCINE) 5,000 UNITS/ML 1ML VIAL SQ SCH (10:00)
[2019-01-08 10:43] LABS: PLATELET ESTIMATE DECREASED
[2019-01-08] MEDS ORDERED: SODIUM CHLORIDE NASAL SPRAY 44 ML BOTTLE NS PRN (10:48)
[2019-01-08] MEDS: FINASTERIDE PO SCH (11:08)
--- NOTE | 2019-01-08 13:41 | CONSULT ---
Consultation: REQUESTING PROVIDER: Dr Noonan CONSULT REQUEST: We have been asked to medically evaluate this patient for anemia. HISTORY OF PRESENT ILLNESS: The patient is a 88 yo M with PMH of IDDM, HLD, HTN, BPH, systolic CHF, pleural effusions, CAD, CABG (2009), ICD, PAD, Left transmetatarsal amputation admitted for weakness and falls and hyperkalemia. He has been treated for UTI with Bactrim. Hematology/Oncology was consulted for anemia and thrombocytopenia. Today the patient is feeling better, complaining of back pain. He denies dizziness, chest pain, palpitations, abdominal pain, n/v, dysuriua, fever, chills. PSH: AICD, Amputation (TMA), Bypass, CABG, bilateral cataract, angioplasty in left leg, stents in LEs, cholecystectomy SH: quit smoking in 2009, used to smoke "a lot", denies alcohol and drugs. Lives with . FH: brother: cancer in appendix with mets to liver REVIEW OF SYSTEMS: CONSTITUTIONAL: generalized weakness Absent: fever, chills, diaphoresis, malaise, loss of appetite, weight change HEENT: Absent: rhinorrhea, nasal congestion, throat pain, throat swelling, difficulty swallowing CARDIOVASCULAR: Absent: chest pain, syncope, palpitations, irregular heart rate, lightheadedness , peripheral edema RESPIRATORY: Absent: cough, shortness of breath, dyspnea with exertion, orthopnea, wheezing GASTROINTESTINAL: Absent: abdominal pain, abdominal distension, nausea, vomiting, diarrhea, constipation GENITOURINARY: Absent: dysuria, frequency, urgency, hesitancy, hematuria MUSCULOSKELETAL: Absent: myalgia, arthralgia, joint swelling, back pain, SKIN: Absent: rash, itching, pallor HEMATOLOGIC/IMMUNOLOGIC: Absent: easy bleeding, easy bruising, lymphadenopathy ENDOCRINE: Absent: unexplained weight gain, unexplained weight loss NEUROLOGIC: weakness Absent: headache, dizziness, unsteady gait, seizure, mental status changes PSYCHIATRIC: Absent: anxiety, depression PHYSICAL EXAMINATION Vital Signs - 24 hr 01/07/19 01/07/19 01/08/19 21:00 21:40 00:28 Temperature 97.7 F 98.1 F Pulse Rate 75 82 Respiratory 18 18 18 Rate Blood Pressure 122/58 L 128/53 L O2 Sat by Pulse 100 97 Oximetry (%) 01/08/19 01/08/19 01/08/19 06:00 08:17 09:00 Temperature 98.7 F 98.2 F Pulse Rate 72 71 Respiratory 18 16 Rate Blood Pressure 108/55 L 111/57 L O2 Sat by Pulse 95 Oximetry (%) GENERAL: Awake, alert, and fully oriented, in no acute distress. HEAD: Normal with no signs of trauma. EYES: Pupils equal, round and reactive to light, extraocular movements intact, sclera anicteric, conjunctiva clear. EARS, NOSE, THROAT: Ears normal, nares patent, oropharynx clear without exudates. Missing teeth. Moist mucous membranes. NECK: Normal range of motion, supple without lymphadenopathy, JVD, or masses. LUNGS: Breath sounds equal, clear to auscultation bilaterally. No wheezes, and no crackles. No accessory muscle use. HEART: Regular rate and rhythm, normal S1 and S2 without murmur, rub or gallop, pacemaker on left chest. ABDOMEN: Soft, nontender, not distended, normoactive bowel sounds, no guarding, no rebound, no masses. MUSCULOSKELETAL: Normal range of motion at all joints. No bony deformities or tenderness. No CVA tenderness. UPPER EXTREMITIES: No peripheral edema, bruising. LOWER EXTREMITIES: left foot s/p amputation, small 0.5 cm open wound on medial side, no drainage, no tenderness, no erythema, right foot warm, pink, dry skin, 1+ pulse. No peripheral edema. NEUROLOGICAL: Non focal. Normal speech. PSYCHIATRIC: Cooperative. Good eye contact. Appropriate mood and affect. SKIN: Warm, dry, normal turgor, no rashes, healed wound on chest, s/p CABG. Laboratory Results - last 24 hr 01/07/19 01/07/19 01/07/19 13:00 15:54 17:37 WBC RBC Hgb Hct MCV MCH MCHC RDW Plt Count MPV Absolute Neuts (auto) Neutrophils % Lymphocytes % Monocytes % Eosinophils % Basophils % Nucleated RBC % Platelet Estimate Platelet Comment ESR Sodium 140 Potassium 5.1 Chloride 109 H Carbon Dioxide 24 Anion Gap 8 BUN 96.9 H Creatinine 3.5 H Est GFR (CKD-EPI)AfAm 17.17 Est GFR (CKD-EPI)NonAf 14.82 POC Glucometer 87 Random Glucose 68 L Calcium 8.5 Phosphorus Magnesium Ferritin Total Bilirubin AST ALT Alkaline Phosphatase Creatine Kinase Troponin I Total Protein Albumin Vitamin B12 TSH Urine Color Yellow Urine Appearance Clear Urine pH 5.0 Ur Specific [place] 1.011 Urine Protein Negative Urine Glucose (UA) Negative Urine Ketones Negative Urine Blood 2+ H Urine Nitrite Negative Urine Bilirubin Negative Urine Urobilinogen 0.2 Ur Leukocyte Esterase 2+ H Urine WBC (Auto) 26 Urine RBC (Auto) 2 Urine Casts (Auto) 7 U Epithel Cells (Auto) 1.0 Urine Bacteria (Auto) 2.4 Ur Random Creatinine U Random Total Protein Ur Random Sodium Ur Random Urea Nitrogn 01/07/19 01/07/19 01/07/19 20:20 20:20 20:20 WBC RBC Hgb Hct MCV MCH MCHC RDW Plt Count MPV Absolute Neuts (auto) Neutrophils % Lymphocytes % Monocytes % Eosinophils % Basophils % Nucleated RBC % Platelet Estimate Platelet Comment ESR Sodium Potassium Chloride Carbon Dioxide Anion Gap BUN Creatinine Est GFR (CKD-EPI)AfAm Est GFR (CKD-EPI)NonAf POC Glucometer Random Glucose Calcium Phosphorus Magnesium Ferritin Total Bilirubin AST ALT Alkaline Phosphatase Creatine Kinase Troponin I Total Protein Albumin Vitamin B12 TSH Urine Color Urine Appearance Urine pH Ur Specific [place] Urine Protein Urine Glucose (UA) Urine Ketones Urine Blood Urine Nitrite Urine Bilirubin Urine Urobilinogen Ur Leukocyte Esterase Urine WBC (Auto) Urine RBC (Auto) Urine Casts (Auto) U Epithel Cells (Auto) Urine Bacteria (Auto) Ur Random Creatinine 64.0 U Random Total Protein 46.6 H Ur Random Sodium 50 Ur Random Urea Nitrogn 739 Cancelled 01/07/19 01/07/19 01/08/19 20:20 21:33 06:37 WBC 4.9 RBC 2.25 L Hgb 7.8 L Hct 22.7 L MCV 101.1 H MCH 34.5 H MCHC 34.2 RDW 13.6 Plt Count 86 L D MPV 9.7 Absolute Neuts (auto) 3.9 Neutrophils % 79.6 Lymphocytes % 5.1 L Monocytes % 11.0 H Eosinophils % 3.7 Basophils % 0.6 Nucleated RBC % 0 Platelet Estimate Decreased Platelet Comment No clotting detected ESR Sodium Potassium Chloride Carbon Dioxide Anion Gap BUN Creatinine Est GFR (CKD-EPI)AfAm Est GFR (CKD-EPI)NonAf POC Glucometer 175 Random Glucose Calcium Phosphorus Magnesium Ferritin Total Bilirubin AST ALT Alkaline Phosphatase Creatine Kinase Troponin I Total Protein Albumin Vitamin B12 TSH Urine Color Urine Appearance Urine pH Ur Specific [place] Urine Protein Urine Glucose (UA) Urine Ketones Urine Blood Urine Nitrite Urine Bilirubin Urine Urobilinogen Ur Leukocyte Esterase Urine WBC (Auto) Urine RBC (Auto) Urine Casts (Auto) U Epithel Cells (Auto) Urine Bacteria (Auto) Ur Random Creatinine U Random Total Protein Cancelled Ur Random Sodium Ur Random Urea Nitrogn 01/08/19 01/08/19 01/08/19 06:37 06:37 06:37 WBC RBC Hgb Hct MCV MCH MCHC RDW Plt Count MPV Absolute Neuts (auto) Neutrophils % Lymphocytes % Monocytes % Eosinophils % Basophils % Nucleated RBC % Platelet Estimate Platelet Comment ESR 38 H Sodium 142 Potassium 4.4 Chloride 110 H Carbon Dioxide 26 Anion Gap 7 L BUN 84.8 H Creatinine 3.0 H Est GFR (CKD-EPI)AfAm 20.69 Est GFR (CKD-EPI)NonAf 17.85 POC Glucometer Random Glucose 66 L Calcium 8.0 L Phosphorus 4.4 Magnesium 2.7 H Ferritin 99.4 Total Bilirubin 0.4 AST 25 ALT 30 Alkaline Phosphatase 99 Creatine Kinase 138 Troponin I 0.03 Total Protein 6.6 Albumin 2.7 L Vitamin B12 655 TSH 1.32 D Urine Color Urine Appearance Urine pH Ur Specific [place] Urine Protein Urine Glucose (UA) Urine Ketones Urine Blood Urine Nitrite Urine Bilirubin Urine Urobilinogen Ur Leukocyte Esterase Urine WBC (Auto) Urine RBC (Auto) Urine Casts (Auto) U Epithel Cells (Auto) Urine Bacteria (Auto) Ur Random Creatinine U Random Total Protein Ur Random Sodium Ur Random Urea Nitrogn Active Medications Generic Name Dose Route Start Last Admin Trade Name Freq PRN Reason Stop Dose Admin Acetaminophen 650 mg 01/07/19 08:20 Tylenol - PO Q6H PRN PAIN 1-3 Aspirin 81 mg 01/07/19 10:00 01/08/19 09:57 Asa - PO 81 mg DAILY [facility]BE[facility] Administration Carvedilol 3.125 mg 01/07/19 10:00 01/08/19 09:57 Coreg - PO 3.125 mg BID ABBEY Administration Finasteride 5 mg 01/09/19 10:00 Proscar - PO DAILY ABBEY Folic Acid 1 mg 01/07/19 10:00 01/08/19 09:57 Folic Acid - PO 1 mg DAILY ABBEY Administration Insulin Detemir 10 units 01/07/19 22:00 01/07/19 21:40 Levemir Vial SQ 10 unit HS ABBEY Administration Levothyroxine Sodium 75 mcg 01/07/19 11:00 01/08/19 06:23 Synthroid - PO 75 mcg [email or web address] ABBEY Administration Pregabalin 50 mg 01/07/19 22:00 01/07/19 21:40 Lyrica - PO 50 mg HS ABBEY Administration Ranitidine HCl 150 mg 01/07/19 22:00 01/07/19 21:40 Zantac - PO 150 mg HS ABBEY Administration Rosuvastatin Calcium 10 mg 01/07/19 22:00 01/08/19 00:10 Crestor - PO 10 mg HS ABBEY Administration Sodium Chloride 2 spray 01/08/19 10:48 [place] - NS BID PRN NASAL CONGESTION Tamsulosin HCl 0.4 mg 01/07/19 22:00 01/07/19 21:40 Flomax - PO 0.4 mg HS ABBEY Administration ASSESSMENT/PLAN: The patient is a 88 yo M with PMH of IDDM, HLD, BPH, systolic CHF, pleural effusions, CAD, CABG (2009), ICD, PAD, Left transmetatarsal amputation admitted for weakness and falls and hyperkalemia. Hem/Onc consulted for anemia and thrombocytopenia. Macrocytic anemia Thrombocytopenia Hyperkalemia DM CHD pacemaker PAD CAD, s/p CABG s/p left toe amputation Plan: Macrocytic anemia, chronic with nl Ferritin, TSH nl, nl B12, on Folate at home. f/u Iron studies and folate level. Less likely due to medications, toxins. Thrombocytopenia, chronic, f/u liver US while still inpatient. F/u immunology for protein inversion. Hyperkalemia likely due to Bactrim. Dispo: We will continue to follow the patient. Thank you for this consultative opportunity. Problem List - Problems (1) ASHLYN (acute kidney injury) Code(s): N17.9 - ACUTE KIDNEY FAILURE, UNSPECIFIED (2) Anemia Code(s): D64.9 - ANEMIA, UNSPECIFIED Qualifiers: (3) Hyperkalemia Code(s): E87.5 - HYPERKALEMIA (4) Weakness Code(s): R53.1 - WEAKNESS (5) ASHD (arteriosclerotic heart disease) Code(s): I25.10 - ATHSCL HEART DISEASE OF [place] CORONARY ARTERY W/O ANG PCTRS (6) Back pain Code(s): M54.9 - DORSALGIA, UNSPECIFIED (7) CAD (coronary artery disease) Code(s): I25.10 - ATHSCL HEART DISEASE OF [place] CORONARY ARTERY W/O ANG PCTRS Qualifiers: Coronary Disease-Associated Artery/Lesion type: [place] artery [place] vs. transplanted heart: [place] heart Associated angina: without angina Qualified Code(s): I25.10 - Atherosclerotic heart disease of [place] coronary artery without angina pectoris (8) COPD (chronic obstructive pulmonary disease) Code(s): J44.9 - CHRONIC OBSTRUCTIVE PULMONARY DISEASE, UNSPECIFIED Qualifiers: COPD type: chronic bronchitis (9) Diabetes mellitus Code(s): E11.9 - TYPE 2 DIABETES MELLITUS WITHOUT COMPLICATIONS Qualifiers: Diabetes mellitus type: type 2 Chronic kidney disease stage: stage 2 (mild ) (10) Hematuria Code(s): R31.9 - HEMATURIA, UNSPECIFIED (11) History of implantable cardiac defibrillator (ICD) Code(s): [id number] - (12) Hx of CABG Code(s): Z95.1 - PRESENCE OF AORTOCORONARY BYPASS GRAFT (13) Hypercholesterolemia Code(s): E78.0 - PURE HYPERCHOLESTEROLEMIA * DO NOT USE * Visit type - Emergency Visit Emergency Visit: Yes ED Registration Date: 01/07/19 Care time: The patient presented to the Emergency Department on the above date and was hospitalized for further evaluation of their emergent condition. - New Patient This patient is new to me today: Yes Date on this admission: 01/09/19 - Critical Care Critical Care patient: No
--- NOTE | 2019-01-08 14:59 | PN ---
Progress Note, Physician History of Present Illness: pulmonary alert,no distress,-cp,still c/o weakness - Current Medication List Current Medications: Active Medications Acetaminophen (Tylenol -) 650 mg PO Q6H PRN PRN Reason: PAIN 1-3 Aspirin (Asa -) 81 mg PO DAILY [facility] Last Admin: 01/08/19 09:57 Dose: 81 mg Carvedilol (Coreg -) 3.125 mg PO BID [facility] Last Admin: 01/08/19 09:57 Dose: 3.125 mg Finasteride (Proscar -) 5 mg PO DAILY [facility] Folic Acid (Folic Acid -) 1 mg PO DAILY [facility] Last Admin: 01/08/19 09:57 Dose: 1 mg Insulin Detemir (Levemir Vial) 10 units SQ [facility] Last Admin: 01/07/19 21:40 Dose: 10 unit Levothyroxine Sodium (Synthroid -) 75 mcg PO [email or web address] [facility] Last Admin: 01/08/19 06:23 Dose: 75 mcg Pregabalin (Lyrica -) 50 mg PO [facility] Last Admin: 01/07/19 21:40 Dose: 50 mg Ranitidine HCl (Zantac -) 150 mg PO [facility] Last Admin: 01/07/19 21:40 Dose: 150 mg Rosuvastatin Calcium (Crestor -) 10 mg PO [facility] Last Admin: 01/08/19 00:10 Dose: 10 mg Sodium Chloride ([place] Nasal [place] -) 2 spray NS BID PRN PRN Reason: NASAL CONGESTION Last Admin: 01/08/19 13:47 Dose: 2 spray Tamsulosin HCl (Flomax -) 0.4 mg PO [facility] Last Admin: 01/07/19 21:40 Dose: 0.4 mg - Objective Vital Signs: Vital Signs Temperature 98.2 F 01/08/19 08:17 Pulse Rate 71 01/08/19 08:17 Respiratory Rate 16 01/08/19 08:17 Blood Pressure 111/57 L 01/08/19 08:17 O2 Sat by Pulse Oximetry (%) 95 01/08/19 09:00 Constitutional: Yes: Well Nourished, Calm Eyes: Yes: WNL HENT: Yes: WNL Neck: Yes: WNL Cardiovascular: Yes: Regular Rate and Rhythm, S1, S2 Respiratory: Yes: Diminished Gastrointestinal: Yes: Normal Bowel Sounds, Soft Extremities: Yes: WNL Edema: No Labs: CBC, BMP 01/08/19 06:37 01/08/19 06:37 INR, PTT INR 1.17 (0.83-1.09) H 01/07/19 00:25 - ....Imaging Cat Scan: Image Reviewed (large bilateral pleural effusions) Assessment/Plan Problem List - Problems (1) Anemia Code(s): D64.9 - ANEMIA, UNSPECIFIED Qualifiers: (2) Hyperkalemia Code(s): E87.5 - HYPERKALEMIA (3) Weakness Code(s): R53.1 - WEAKNESS (4) ASHD (arteriosclerotic heart disease) Code(s): I25.10 - ATHSCL HEART DISEASE OF [place] CORONARY ARTERY W/O ANG PCTRS (5) Acute on chronic systolic (congestive) heart failure Code(s): I50.23 - ACUTE ON CHRONIC SYSTOLIC (CONGESTIVE) HEART FAILURE (6) CAD (coronary artery disease) Code(s): I25.10 - ATHSCL HEART DISEASE OF [place] CORONARY ARTERY W/O ANG PCTRS Qualifiers: Coronary Disease-Associated Artery/Lesion type: [place] artery [place] vs. transplanted heart: [place] heart Associated angina: without angina Qualified Code(s): I25.10 - Atherosclerotic heart disease of [place] coronary artery without angina pectoris (7) CHF (congestive heart failure) Code(s): I50.9 - HEART FAILURE, UNSPECIFIED (8) CKD (chronic kidney disease) Code(s): N18.9 - CHRONIC KIDNEY DISEASE, UNSPECIFIED Qualifiers: Chronic kidney disease stage: stage 3 (moderate) Qualified Code(s): N18.3 - Chronic kidney disease, stage 3 (moderate) (9) COPD (chronic obstructive pulmonary disease) Code(s): J44.9 - CHRONIC OBSTRUCTIVE PULMONARY DISEASE, UNSPECIFIED Qualifiers: COPD type: chronic bronchitis (10) Carotid artery disease Code(s): I77.9 - DISORDER OF ARTERIES AND ARTERIOLES, UNSPECIFIED Qualifiers: Laterality: unspecified laterality Qualified Code(s): I77.9 - Disorder of arteries and arterioles, unspecified (11) Chronic cholecystitis Code(s): K81.1 - CHRONIC CHOLECYSTITIS (12) Chronic systolic heart failure Code(s): I50.22 - CHRONIC SYSTOLIC (CONGESTIVE) HEART FAILURE (13) Diabetes mellitus Code(s): E11.9 - TYPE 2 DIABETES MELLITUS WITHOUT COMPLICATIONS Qualifiers: Diabetes mellitus type: type 2 Chronic kidney disease stage: stage 2 (mild ) (14) Elevated liver function tests Code(s): R79.89 - OTHER SPECIFIED ABNORMAL FINDINGS OF BLOOD CHEMISTRY (15) HTN (hypertension) Code(s): I10 - ESSENTIAL (PRIMARY) HYPERTENSION Qualifiers: Hypertension type: essential hypertension Qualified Code(s): I10 - Essential (primary) hypertension (16) History of implantable cardiac defibrillator (ICD) Code(s): [id number] - (17) Hx of CABG Code(s): Z95.1 - PRESENCE OF AORTOCORONARY BYPASS GRAFT (18) Hypercholesterolemia Code(s): E78.0 - PURE HYPERCHOLESTEROLEMIA * DO NOT USE * (19) Hypothyroidism Code(s): E03.9 - HYPOTHYROIDISM, UNSPECIFIED Qualifiers: Hypothyroidism type: unspecified Qualified Code(s): E03.9 - Hypothyroidism , unspecified (20) ICD (implantable cardioverter-defibrillator) in place Code(s): Z95.810 - PRESENCE OF AUTOMATIC (IMPLANTABLE) CARDIAC DEFIBRILLATOR (21) Peripheral arterial disease Code(s): I73.9 - PERIPHERAL VASCULAR DISEASE, UNSPECIFIED (22) Pleural effusion Code(s): J90 - PLEURAL EFFUSION, NOT ELSEWHERE CLASSIFIED Assessment/Plan Follow CXR O2 as needed NIPPV as needed Diuretics as needed Aspiration precautions monitor lytes,renal function DR NAVARRO
--- NOTE | 2019-01-08 15:37 | PN ---
Progress Note (short form) - Note Progress Note: Renal follow up for ASHLYN Pt seen and examined at the bedside awake and alert no acute complaints no sob, cp, abd pain making urine via pulliam Vital Signs Temperature 98.2 F 01/08/19 08:17 Pulse Rate 71 01/08/19 08:17 Respiratory Rate 16 01/08/19 08:17 Blood Pressure 111/57 L 01/08/19 08:17 O2 Sat by Pulse Oximetry (%) 95 01/08/19 09:00 Intake & Output 01/05/19 01/06/19 01/07/19 01/08/19 23:59 23:59 23:59 23:59 Output Total 100 Balance -100 Weight 68.039 kg NAD awake and alert neck supple no JVD RRR Dec BS, no overt raltes soft NT, mild distension over lower abdomen no LE edema CBC, BMP 01/08/19 06:37 01/08/19 06:37 Current Medications Acetaminophen (Tylenol -) 650 mg PO Q6H PRN PRN Reason: PAIN 1-3 Aspirin (Asa -) 81 mg PO DAILY [facility] Last Admin: 01/08/19 09:57 Dose: 81 mg Carvedilol (Coreg -) 3.125 mg PO BID [facility] Last Admin: 01/08/19 09:57 Dose: 3.125 mg Finasteride (Proscar -) 5 mg PO DAILY [facility] Folic Acid (Folic Acid -) 1 mg PO DAILY [facility] Last Admin: 01/08/19 09:57 Dose: 1 mg Insulin Detemir (Levemir Vial) 10 units SQ [facility] Last Admin: 01/07/19 21:40 Dose: 10 unit Levothyroxine Sodium (Synthroid -) 75 mcg PO [email or web address] [facility] Last Admin: 01/08/19 06:23 Dose: 75 mcg Pregabalin (Lyrica -) 50 mg PO [facility] Last Admin: 01/07/19 21:40 Dose: 50 mg Ranitidine HCl (Zantac -) 150 mg PO [facility] Last Admin: 01/07/19 21:40 Dose: 150 mg Rosuvastatin Calcium (Crestor -) 10 mg PO [facility] Last Admin: 01/08/19 00:10 Dose: 10 mg Sodium Chloride ([place] Nasal [place] -) 2 spray NS BID PRN PRN Reason: NASAL CONGESTION Last Admin: 01/08/19 13:47 Dose: 2 spray Tamsulosin HCl (Flomax -) 0.4 mg PO HS [facility] Last Admin: 01/07/19 21:40 Dose: 0.4 mg 88 year old gentleman wtih hx of CAD, CABG, PIC, LV dysfunction, PPM, Hypertension, CKD, Carotid stenosis, BPH with urinary retention who presented from home with weakness and falls and found to have hyperkalemia and ASHLYN. #ASHLYN on CKD suspect due to urinary retention vs. volume depletion +/- Bactrium related injury #CKD #Hyperkalemia #CAD #Cardiomyopathy #Right pleural effusion #Falls/weakness K is improve renal function with moderate improvement making urine via pulliam bladder US showed mild retention will discuss with cardiology if we can give gentle hydration hold diuretics and ARB for now continue flomax no acute indication for [employer] Thank you Oscar Madrid DO
[2019-01-08] MEDS: RANITIDINE HCL 150 MG TABLET (FP) PO SCH (22:26)
[2019-01-08] MEDS: INSULIN (LEVEMIR) 100 UNITS/ML UNITS SQ SCH (22:26)
[2019-01-08] MEDS: PREGABALIN 50 MG CAPSULE PO SCH (22:26)
[2019-01-08] MEDS: TAMSULOSIN HCL 0.4 MG CAP PO SCH (22:26)
[2019-01-09] MEDS: LEVOTHYROXINE NA 75 MCG TABLET (FP) PO SCH (06:05)
[2019-01-09 07:44] LABS: BLOOD UREA NITROGEN 73.8 mg/dL (7-18); CREATININE 2.4 mg/dL (0.55-1.3); POTASSIUM 4.1 mmol/L (3.5-5.1)
[2019-01-09 08:18] LABS: BASO % 0.7 % (0-2.0); EOS % 4.1 % (0-4.5); HEMATOCRIT 22.6 % (35.4-49); HEMOGLOBIN 7.6 GM/dL (11.7-16.9); LYMPH % 10.6 % (8-40); MCH 34.4 pg (25.7-33.7); MCHC 33.8 g/dl (32.0-35.9); MEAN CELL VOLUME 101.9 fl (80-96); MEAN PLT VOLUME 9.5 fl (7.5-11.1); MONO % 13.7 % (3.8-10.2); NEUT % 70.9 % (42.8-82.8); PLATELET COUNT 89 K/MM3 (134-434); RBC 2.22 M/mm3 (4.00-5.60); RDW 13.4 % (11.9-15.9); WHITE BLOOD COUNT 4.1 K/mm3 (4.0-10.0)
--- NOTE | 2019-01-09 09:16 | PN ---
Progress Note, Physician Chief Complaint: feels weak generally no other c/o - Current Medication List Current Medications: Active Medications Acetaminophen (Tylenol -) 650 mg PO Q6H PRN PRN Reason: PAIN 1-3 Aspirin (Asa -) 81 mg PO DAILY [facility] Last Admin: 01/08/19 09:57 Dose: 81 mg Carvedilol (Coreg -) 3.125 mg PO BID [facility] Last Admin: 01/08/19 22:26 Dose: 3.125 mg Finasteride (Proscar -) 5 mg PO DAILY [facility] Folic Acid (Folic Acid -) 1 mg PO DAILY [facility] Last Admin: 01/08/19 09:57 Dose: 1 mg Insulin Detemir (Levemir Vial) 8 units SQ [facility] Levothyroxine Sodium (Synthroid -) 75 mcg PO [email or web address] [facility] Last Admin: 01/09/19 06:05 Dose: 75 mcg Pregabalin (Lyrica -) 50 mg PO [facility] Last Admin: 01/08/19 22:26 Dose: 50 mg Ranitidine HCl (Zantac -) 150 mg PO [facility] Last Admin: 01/08/19 22:26 Dose: 150 mg Rosuvastatin Calcium (Crestor -) 10 mg PO [facility] Last Admin: 01/08/19 22:26 Dose: 10 mg Sodium Chloride ([place] Nasal [place] -) 2 spray NS BID PRN PRN Reason: NASAL CONGESTION Last Admin: 01/08/19 13:47 Dose: 2 spray Tamsulosin HCl (Flomax -) 0.4 mg PO [facility] Last Admin: 01/08/19 22:26 Dose: 0.4 mg - Objective Vital Signs: Vital Signs Temperature 98.4 F 01/09/19 06:59 Pulse Rate 67 01/09/19 06:59 Respiratory Rate 20 01/09/19 06:59 Blood Pressure 104/43 L 01/09/19 06:59 O2 Sat by Pulse Oximetry (%) 95 01/09/19 08:00 Constitutional: Yes: No Distress, Calm Eyes: Yes: Conjunctiva Clear HENT: Yes: Atraumatic Neck: Yes: Supple Cardiovascular: Yes: Regular Rate and Rhythm Respiratory: Yes: CTA Bilaterally Gastrointestinal: Yes: Soft. No: Tenderness Genitourinary: No: CVA Tenderness - Left, CVA Tenderness - Right Musculoskeletal: No: Joint Stiffness, Joint Swelling Extremities: No: Cold, Cool, Cyanosis Edema: No Integumentary: No: Rash, Venous Stasis Changes Wound/Incision: Yes: Other (L stump wound) Neurological: Yes: WNL, Alert, Oriented ...Motor Strength: WNL Psychiatric: Yes: WNL, Alert, Oriented. No: Agitated, Suicidal Ideation Labs: CBC, BMP 01/09/19 06:15 01/09/19 06:15 INR, PTT INR 1.17 (0.83-1.09) H 01/07/19 00:25 - ....Imaging Other: Report Reviewed Assessment/Plan 88 yo M with h/o IDDM, HLD, BPH, chronic systolic CHF with BL pleural effusions , CAD, CABG (2009), ICD placement for sustained , PAD, Left transmetatarsal amputation admitted with weakness ad falls. s/p recent tx for UTI Bactrim BID x 8 days. Patient with hematuria intermittently in ER found to be anemic and hyper K renal f/u f.u labs wound care per vascular sx anemia w/u; low PLT on heparin: DCd sq heparin, check antibodies, heme eval; transfuse 1 U prbc dvt pfx; fall pfx; d/w pt and staff will call pts
[2019-01-09] MEDS: FOLIC ACID 1 MG TABLET (FP) PO SCH (10:00)
[2019-01-09] MEDS: FINASTERIDE 5 MG TABLET (FP) PO SCH (10:00)
[2019-01-09] MEDS: CARVEDILOL 3.125 MG TABLET (FP) PO SCH ×2 (10:00→22:00)
[2019-01-09] MEDS: ASPIRIN 81 MG CHEWABLE TABLETS PO SCH (10:00)
--- NOTE | 2019-01-09 10:59 | PN ---
Progress Note, Physician History of Present Illness: Resting comfortably. - Current Medication List Current Medications: Active Medications Acetaminophen (Tylenol -) 650 mg PO Q6H PRN PRN Reason: PAIN 1-3 Aspirin (Asa -) 81 mg PO DAILY [facility] Last Admin: 01/09/19 10:00 Dose: 81 mg Carvedilol (Coreg -) 3.125 mg PO BID [facility] Last Admin: 01/09/19 10:00 Dose: 3.125 mg Finasteride (Proscar -) 5 mg PO DAILY [facility] Last Admin: 01/09/19 10:00 Dose: 5 mg Folic Acid (Folic Acid -) 1 mg PO DAILY [facility] Last Admin: 01/09/19 10:00 Dose: 1 mg Insulin Detemir (Levemir Vial) 8 units SQ [facility] Levothyroxine Sodium (Synthroid -) 75 mcg PO MoTuWeTh@0700 [facility] Last Admin: 01/09/19 06:05 Dose: 75 mcg Pregabalin (Lyrica -) 50 mg PO [facility] Last Admin: 01/08/19 22:26 Dose: 50 mg Ranitidine HCl (Zantac -) 150 mg PO [facility] Last Admin: 01/08/19 22:26 Dose: 150 mg Rosuvastatin Calcium (Crestor -) 10 mg PO [facility] Last Admin: 01/08/19 22:26 Dose: 10 mg Sodium Chloride ([place] Nasal [place] -) 2 spray NS BID PRN PRN Reason: NASAL CONGESTION Last Admin: 01/08/19 13:47 Dose: 2 spray Tamsulosin HCl (Flomax -) 0.4 mg PO [facility] Last Admin: 01/08/19 22:26 Dose: 0.4 mg - Objective Vital Signs: Vital Signs Temperature 98.4 F 01/09/19 06:59 Pulse Rate 67 01/09/19 06:59 Respiratory Rate 20 01/09/19 06:59 Blood Pressure 104/43 L 01/09/19 06:59 O2 Sat by Pulse Oximetry (%) 95 01/09/19 08:00 Constitutional: Yes: No Distress, Calm Neck: Yes: Supple Cardiovascular: Yes: Regular Rate and Rhythm Respiratory: Yes: Regular, Diminished Gastrointestinal: Yes: Soft, Hypoactive Bowel Sounds Edema: No Labs: CBC, BMP 01/09/19 06:15 01/09/19 06:15 INR, PTT INR 1.17 (0.83-1.09) H 01/07/19 00:25 Problem List - Problems (1) ASHLYN (acute kidney injury) Code(s): N17.9 - ACUTE KIDNEY FAILURE, UNSPECIFIED (2) Anemia Code(s): D64.9 - ANEMIA, UNSPECIFIED Qualifiers: (3) Hyperkalemia Code(s): E87.5 - HYPERKALEMIA (4) Weakness Code(s): R53.1 - WEAKNESS (5) ASHD (arteriosclerotic heart disease) Code(s): I25.10 - ATHSCL HEART DISEASE OF [place] CORONARY ARTERY W/O ANG PCTRS (6) CAD (coronary artery disease) Code(s): I25.10 - ATHSCL HEART DISEASE OF [place] CORONARY ARTERY W/O ANG PCTRS Qualifiers: Coronary Disease-Associated Artery/Lesion type: [place] artery [place] vs. transplanted heart: [place] heart Associated angina: without angina Qualified Code(s): I25.10 - Atherosclerotic heart disease of [place] coronary artery without angina pectoris (7) CHF (congestive heart failure) Code(s): I50.9 - HEART FAILURE, UNSPECIFIED (8) CKD (chronic kidney disease) Code(s): N18.9 - CHRONIC KIDNEY DISEASE, UNSPECIFIED Qualifiers: Chronic kidney disease stage: stage 3 (moderate) Qualified Code(s): N18.3 - Chronic kidney disease, stage 3 (moderate) (9) Chronic systolic heart failure Code(s): I50.22 - CHRONIC SYSTOLIC (CONGESTIVE) HEART FAILURE (10) Diabetes mellitus Code(s): E11.9 - TYPE 2 DIABETES MELLITUS WITHOUT COMPLICATIONS Qualifiers: Diabetes mellitus type: type 2 Chronic kidney disease stage: stage 2 (mild ) (11) HTN (hypertension) Code(s): I10 - ESSENTIAL (PRIMARY) HYPERTENSION Qualifiers: Hypertension type: essential hypertension Qualified Code(s): I10 - Essential (primary) hypertension (12) History of implantable cardiac defibrillator (ICD) Code(s): [id number] - (13) Hx of CABG Code(s): Z95.1 - PRESENCE OF AORTOCORONARY BYPASS GRAFT (14) Hypercholesterolemia Code(s): E78.0 - PURE HYPERCHOLESTEROLEMIA * DO NOT USE * (15) Hypothyroidism Code(s): E03.9 - HYPOTHYROIDISM, UNSPECIFIED Qualifiers: Hypothyroidism type: unspecified Qualified Code(s): E03.9 - Hypothyroidism , unspecified (16) ICD (implantable cardioverter-defibrillator) in place Code(s): Z95.810 - PRESENCE OF AUTOMATIC (IMPLANTABLE) CARDIAC DEFIBRILLATOR (17) Peripheral arterial disease Code(s): I73.9 - PERIPHERAL VASCULAR DISEASE, UNSPECIFIED (18) Systolic dysfunction with acute on chronic heart failure Code(s): I50.23 - ACUTE ON CHRONIC SYSTOLIC (CONGESTIVE) HEART FAILURE Assessment/Plan 07/21/2016 Echo: Moderate dilated with mild-mod decreased LV fxn, pacer RV, mild LAE, mod MR, mild TR 08/01/[address]: Mod bilateral effusions R>L, small pericardial effusions 08/02/2018 Echo: Mild-mod decreased LVEF 40-45%, normal RV size and fxn, mild LAE, mild MR, tr TR, [place], [place]. No pericardial effusion 1. Acute on CKD with hyperkalemia and hyponatremia improved 2. Systolic/diastolic LV dysfunction with clinical class I-II NYHA classification LV failure, compensated/euvolemic 3. CAD post CABG, angina pectoris 4. HTN 5. NIDDM 6. Hypercholesterolemia 7. 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 Carotid stenosis 9. Hypothyroidism 10. PAD post IT TRAINING SPECIALIST and amputation (TMA) 11. Anemia PLAN: 1. Continue to hold Lasix and Cozaar therapies pending renal function recovery and resolution of hyperkalemia 2. Continue ASA 81 qd, carvedilol 3.125 bid as hemodynamics permit, Crestor 10 qhs 3. Transfuse pRBC to maintain Hgb>8.0 4. Initiate PT for gait training
--- NOTE | 2019-01-09 12:39 | PN ---
Progress Note (short form) - Note Progress Note: Renal follow up for ASHLYN Pt seen and examined at the bedside awake and alert no acute complaints eating getting PRBC transfusion making urine in pulliam Vital Signs Temperature 98.5 F 01/09/19 09:00 Pulse Rate 71 01/09/19 09:00 Respiratory Rate 22 H 01/09/19 09:00 Blood Pressure 112/57 L 01/09/19 09:00 O2 Sat by Pulse Oximetry (%) 98 01/09/19 09:00 Intake & Output 01/06/19 01/07/19 01/08/19 01/09/19 23:59 23:59 23:59 23:59 Intake Total 240 470 Output Total 100 875 Balance -100 -635 470 Weight 68.039 kg NAD no JVD RRR Dec BS, no overt rales soft NT, mild distension over lower abdomen no LE edema CBC, BMP 01/09/19 06:15 01/09/19 06:15 Current Medications Acetaminophen (Tylenol -) 650 mg PO Q6H PRN PRN Reason: PAIN 1-3 Aspirin (Asa -) 81 mg PO DAILY [facility] Last Admin: 01/09/19 10:00 Dose: 81 mg Carvedilol (Coreg -) 3.125 mg PO BID [facility] Last Admin: 01/09/19 10:00 Dose: 3.125 mg Finasteride (Proscar -) 5 mg PO DAILY [facility] Last Admin: 01/09/19 10:00 Dose: 5 mg Folic Acid (Folic Acid -) 1 mg PO DAILY [facility] Last Admin: 01/09/19 10:00 Dose: 1 mg Insulin Detemir (Levemir Vial) 8 units SQ [facility] Levothyroxine Sodium (Synthroid -) 75 mcg PO MoTuWeTh@0700 [facility] Last Admin: 01/09/19 06:05 Dose: 75 mcg Pregabalin (Lyrica -) 50 mg PO [facility] Last Admin: 01/08/19 22:26 Dose: 50 mg Ranitidine HCl (Zantac -) 150 mg PO [facility] Last Admin: 01/08/19 22:26 Dose: 150 mg Rosuvastatin Calcium (Crestor -) 10 mg PO [facility] Last Admin: 01/08/19 22:26 Dose: 10 mg Sodium Chloride ([place] Nasal [place] -) 2 spray NS BID PRN PRN Reason: NASAL CONGESTION Last Admin: 01/08/19 13:47 Dose: 2 spray Tamsulosin HCl (Flomax -) 0.4 mg PO [facility] Last Admin: 01/08/19 22:26 Dose: 0.4 mg 88 year old gentleman wtih hx of CAD, CABG, PIC, LV dysfunction, PPM, Hypertension, CKD, Carotid stenosis, BPH with urinary retention who presented from home with weakness and falls and found to have hyperkalemia and ASHLYN. 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
--- NOTE | 2019-01-09 13:23 | PN ---
Progress Note, Physician History of Present Illness: pulmonary alert,comfortable,-sob,cp,cough,feels stronger. pt currently being transfused - Current Medication List Current Medications: Active Medications Acetaminophen (Tylenol -) 650 mg PO Q6H PRN PRN Reason: PAIN 1-3 Aspirin (Asa -) 81 mg PO DAILY [facility] Last Admin: 01/09/19 10:00 Dose: 81 mg Carvedilol (Coreg -) 3.125 mg PO BID [facility] Last Admin: 01/09/19 10:00 Dose: 3.125 mg Finasteride (Proscar -) 5 mg PO DAILY [facility] Last Admin: 01/09/19 10:00 Dose: 5 mg Folic Acid (Folic Acid -) 1 mg PO DAILY [facility] Last Admin: 01/09/19 10:00 Dose: 1 mg Insulin Detemir (Levemir Vial) 8 units SQ [facility] Levothyroxine Sodium (Synthroid -) 75 mcg PO MoTuWeTh@0700 [facility] Last Admin: 01/09/19 06:05 Dose: 75 mcg Pregabalin (Lyrica -) 50 mg PO [facility] Last Admin: 01/08/19 22:26 Dose: 50 mg Ranitidine HCl (Zantac -) 150 mg PO [facility] Last Admin: 01/08/19 22:26 Dose: 150 mg Rosuvastatin Calcium (Crestor -) 10 mg PO [facility] Last Admin: 01/08/19 22:26 Dose: 10 mg Sodium Chloride ([place] Nasal [place] -) 2 spray NS BID PRN PRN Reason: NASAL CONGESTION Last Admin: 01/08/19 13:47 Dose: 2 spray Tamsulosin HCl (Flomax -) 0.4 mg PO [facility] Last Admin: 01/08/19 22:26 Dose: 0.4 mg - Objective Vital Signs: Vital Signs Temperature 98.5 F 01/09/19 09:00 Pulse Rate 71 01/09/19 09:00 Respiratory Rate 22 H 01/09/19 09:00 Blood Pressure 112/57 L 01/09/19 09:00 O2 Sat by Pulse Oximetry (%) 98 01/09/19 09:00 Constitutional: Yes: Calm, Thin Eyes: Yes: WNL HENT: Yes: WNL Neck: Yes: WNL Cardiovascular: Yes: Regular Rate and Rhythm, S1, S2 Respiratory: Yes: CTA Bilaterally Gastrointestinal: Yes: Normal Bowel Sounds, Soft Extremities: Yes: WNL Edema: No Labs: CBC, BMP 01/09/19 06:15 01/09/19 06:15 INR, PTT INR 1.17 (0.83-1.09) H 01/07/19 00:25 Assessment/Plan Problem List - Problems (1) Anemia Code(s): D64.9 - ANEMIA, UNSPECIFIED Qualifiers: (2) Hyperkalemia Code(s): E87.5 - HYPERKALEMIA (3) Weakness Code(s): R53.1 - WEAKNESS (4) ASHD (arteriosclerotic heart disease) Code(s): I25.10 - ATHSCL HEART DISEASE OF [place] CORONARY ARTERY W/O ANG PCTRS (5) Acute on chronic systolic (congestive) heart failure Code(s): I50.23 - ACUTE ON CHRONIC SYSTOLIC (CONGESTIVE) HEART FAILURE (6) CAD (coronary artery disease) Code(s): I25.10 - ATHSCL HEART DISEASE OF [place] CORONARY ARTERY W/O ANG PCTRS Qualifiers: Coronary Disease-Associated Artery/Lesion type: [place] artery [place] vs. transplanted heart: [place] heart Associated angina: without angina Qualified Code(s): I25.10 - Atherosclerotic heart disease of [place] coronary artery without angina pectoris (7) CHF (congestive heart failure) Code(s): I50.9 - HEART FAILURE, UNSPECIFIED (8) CKD (chronic kidney disease) Code(s): N18.9 - CHRONIC KIDNEY DISEASE, UNSPECIFIED Qualifiers: Chronic kidney disease stage: stage 3 (moderate) Qualified Code(s): N18.3 - Chronic kidney disease, stage 3 (moderate) (9) COPD (chronic obstructive pulmonary disease) Code(s): J44.9 - CHRONIC OBSTRUCTIVE PULMONARY DISEASE, UNSPECIFIED Qualifiers: COPD type: chronic bronchitis (10) Carotid artery disease Code(s): I77.9 - DISORDER OF ARTERIES AND ARTERIOLES, UNSPECIFIED Qualifiers: Laterality: unspecified laterality Qualified Code(s): I77.9 - Disorder of arteries and arterioles, unspecified (11) Chronic cholecystitis Code(s): K81.1 - CHRONIC CHOLECYSTITIS (12) Chronic systolic heart failure Code(s): I50.22 - CHRONIC SYSTOLIC (CONGESTIVE) HEART FAILURE (13) Diabetes mellitus Code(s): E11.9 - TYPE 2 DIABETES MELLITUS WITHOUT COMPLICATIONS Qualifiers: Diabetes mellitus type: type 2 Chronic kidney disease stage: stage 2 (mild ) (14) Elevated liver function tests Code(s): R79.89 - OTHER SPECIFIED ABNORMAL FINDINGS OF BLOOD CHEMISTRY (15) HTN (hypertension) Code(s): I10 - ESSENTIAL (PRIMARY) HYPERTENSION Qualifiers: Hypertension type: essential hypertension Qualified Code(s): I10 - Essential (primary) hypertension (16) History of implantable cardiac defibrillator (ICD) Code(s): [id number] - (17) Hx of CABG Code(s): Z95.1 - PRESENCE OF AORTOCORONARY BYPASS GRAFT (18) Hypercholesterolemia Code(s): E78.0 - PURE HYPERCHOLESTEROLEMIA * DO NOT USE * (19) Hypothyroidism Code(s): E03.9 - HYPOTHYROIDISM, UNSPECIFIED Qualifiers: Hypothyroidism type: unspecified Qualified Code(s): E03.9 - Hypothyroidism , unspecified (20) ICD (implantable cardioverter-defibrillator) in place Code(s): Z95.810 - PRESENCE OF AUTOMATIC (IMPLANTABLE) CARDIAC DEFIBRILLATOR (21) Peripheral arterial disease Code(s): I73.9 - PERIPHERAL VASCULAR DISEASE, UNSPECIFIED (22) Pleural effusion Code(s): J90 - PLEURAL EFFUSION, NOT ELSEWHERE CLASSIFIED Assessment/Plan Follow CXR O2 as needed NIPPV as needed Diuretics as needed Aspiration precautions monitor lytes,renal function normal transfusion threshold DR NAVARRO
--- NOTE | 2019-01-09 16:12 | CONSULT ---
Consult - text type - Consultation Consultation Note: Mr. Alfonso is followed in my office and [facility] for chronic superficial wounds of both feet. He has been healing slowly while developing small blisters from time to time. 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 He walks with assistance but has been falling due to generalized weakness. On exam, the legs and feet are warm and no edema is seen. There are no open wounds at this time. Imp: Healed wounds both feet Rec: Daily skin moisturizer. I will continue to follow in my office.
[2019-01-09] MEDS ORDERED: FUROSEMIDE 40 MG/4 ML INJECTABLE VIAL IVPUSH ONE (20:45)
--- NOTE | 2019-01-09 21:32 | PN ---
Teaching Attending Note Name of Resident: Melida Monique ATTENDING PHYSICIAN STATEMENT I saw and evaluated the patient. I reviewed the resident's note and discussed the case with the resident. I agree with the resident's findings and plan as documented. SUBJECTIVE: Patient seen and examined OBJECTIVE: 88 year old male with hx of CAD, CABG, PIC, LV dysfunction, PPM, Hypertension, CKD, Carotid stenosis, BPH with urinary retention , chronic anemia , chronic thrombocytopenia. Presented with weakness, hyperkalemia Review of previous history reveals chronic macrocytic anemia dationg back to 2017 with normal B-1, folate, , and TSH levels over this time period. Has had chronic thrombocytopenia also dating back to 2017 and it appears that the value of 176K is spurious and inconsistent with prior values. Last Vital Signs Temp Pulse Resp BP Pulse Ox 97.5 F L 73 20 119/57 L 98 01/09/19 16:30 01/09/19 16:30 01/09/19 16:30 01/09/19 16:30 01/09/19 21:00 HEENT: LOVE, EOM Intact-- on BIPAP Oropharynx: No thrush, No mucositis Cor: RSR, No murmurs, No gallops Lungs: Clear to P&A Abd: Soft, Normal bowel sounds, No organomegaly Ext:No significant edema, s/p amutation Skin: No rashes, Integument intact CBC, BMP 01/09/19 06:15 01/09/19 06:15 Current Medications Generic Name Dose Route Start Last Admin Trade Name Freq PRN Reason Stop Dose Admin Acetaminophen 650 mg 01/07/19 08:20 Tylenol - PO Q6H PRN PAIN 1-3 Albuterol Sulfate 1 amp 01/09/19 20:44 Ventolin 0.083% Nebulizer Soln - NEB Q6H PRN SHORT OF BREATH/WHEEZING Aspirin 81 mg 01/07/19 10:00 01/09/19 10:00 Asa - PO 81 mg DAILY [facility] Administration Carvedilol 3.125 mg 01/07/19 10:00 01/09/19 10:00 Coreg - PO 3.125 mg BID [facility] Administration Finasteride 5 mg 01/09/19 10:00 01/09/19 10:00 Proscar - PO 5 mg DAILY [facility] Administration Folic Acid 1 mg 01/07/19 10:00 01/09/19 10:00 Folic Acid - PO 1 mg DAILY [facility] Administration Insulin Detemir 8 units 01/09/19 08:17 Levemir Vial SQ [facility] Levothyroxine Sodium 75 mcg 01/07/19 11:00 01/09/19 06:05 Synthroid - PO 75 mcg MoTuWeTh@0700 [facility] Administration Pregabalin 50 mg 01/07/19 22:00 01/08/19 22:26 Lyrica - PO 50 mg HS [facility] Administration Ranitidine HCl 150 mg 01/07/19 22:00 01/08/19 22:26 Zantac - PO 150 mg HS [facility] Administration Rosuvastatin Calcium 10 mg 01/07/19 22:00 01/08/19 22:26 Crestor - PO 10 mg HS [facility] Administration Sodium Chloride 2 spray 01/08/19 10:48 01/08/19 13:47 [place] Nasal [place] - NS 2 spray BID PRN Administration NASAL CONGESTION Tamsulosin HCl 0.4 mg 01/07/19 22:00 01/08/19 22:26 Flomax - PO 0.4 mg HS [facility] Administration Impression: Macrocytic anemia of long standing duration with normal B-12, folate and thyroid functions dating back at least to Thrombocytopenia dating back to 2017 (176K recent value seems to be spurious) CAD Cardiomyopathy Right pleural effusion Hypoxic respiratory failure on BIPAP ASHLYN --? secondary to Bactrim CKD Hyperkalemia ? secondary to ASHLYN and bactrim PVD Weakness/Falls Consider flow cytometry for MDS ASSESSMENT AND PLAN:
[2019-01-09] MEDS: RANITIDINE HCL 150 MG TABLET (FP) PO SCH (22:00)
[2019-01-09] MEDS: ROSUVASTATIN CA 10 MG TABLET (FP) PO SCH (22:00)
[2019-01-09] MEDS: PREGABALIN 50 MG CAPSULE PO SCH (22:00)
[2019-01-09] MEDS: TAMSULOSIN HCL 0.4 MG CAP PO SCH (22:00)
[2019-01-09] MEDS: INSULIN (LEVEMIR) 100 UNITS/ML UNITS SQ SCH (22:02)
[2019-01-10] MEDS: LEVOTHYROXINE NA 75 MCG TABLET (FP) PO SCH (06:18)
[2019-01-10 07:27] LABS: BASO % 0.6 % (0-2.0); EOS % 4.8 % (0-4.5); HEMATOCRIT 26.6 % (35.4-49); HEMOGLOBIN 9.2 GM/dL (11.7-16.9); LYMPH % 8.7 % (8-40); MCH 33.8 pg (25.7-33.7); MCHC 34.4 g/dl (32.0-35.9); MEAN CELL VOLUME 98.2 fl (80-96); MEAN PLT VOLUME 9.5 fl (7.5-11.1); MONO % 12.1 % (3.8-10.2); NEUT % 73.8 % (42.8-82.8); PLATELET COUNT 99 K/MM3 (134-434); RBC 2.71 M/mm3 (4.00-5.60); RDW 14.9 % (11.9-15.9); WHITE BLOOD COUNT 5.4 K/mm3 (4.0-10.0)
[2019-01-10 07:48] LABS: ALBUMIN 2.6 g/dl (3.4-5.0); BILIRUBIN,TOTAL 0.5 mg/dL (0.2-1); BLOOD UREA NITROGEN 68.9 mg/dL (7-18); CALCIUM 8.1 mg/dL (8.5-10.1); CREATININE 2.2 mg/dL (0.55-1.3); MAGNESIUM 2.5 mg/dL (1.8-2.4); PHOSPHOROUS 3.7 mg/dL (2.5-4.9); POTASSIUM 4.1 mmol/L (3.5-5.1); TOT PROT 6.5 g/dl (6.4-8.2)
[2019-01-10 08:10] LABS: SERUM IRON SATURATION 15 % (15-55); TOTAL IRON BINDING CAPACITY 218 ug/dL (250-450)
[2019-01-10] MEDS: FOLIC ACID 1 MG TABLET (FP) PO SCH (09:57)
[2019-01-10] MEDS: ASPIRIN 81 MG CHEWABLE TABLETS PO SCH (09:57)
[2019-01-10] MEDS: CARVEDILOL 3.125 MG TABLET (FP) PO SCH ×2 (09:57→22:27)
[2019-01-10] MEDS: FINASTERIDE 5 MG TABLET (FP) PO SCH (09:57)
--- NOTE | 2019-01-10 11:49 | PN ---
Progress Note, Physician History of Present Illness: Resting comfortably. Weakness improved. - Current Medication List Current Medications: Active Medications Acetaminophen (Tylenol -) 650 mg PO Q6H PRN PRN Reason: PAIN 1-3 Albuterol Sulfate (Ventolin 0.083% Nebulizer Soln -) 1 amp NEB Q6H PRN PRN Reason: SHORT OF BREATH/WHEEZING Aspirin (Asa -) 81 mg PO DAILY [facility] Last Admin: 01/10/19 09:57 Dose: 81 mg Carvedilol (Coreg -) 3.125 mg PO BID [facility] Last Admin: 01/10/19 09:57 Dose: 3.125 mg Finasteride (Proscar -) 5 mg PO DAILY [facility] Last Admin: 01/10/19 09:57 Dose: 5 mg Folic Acid (Folic Acid -) 1 mg PO DAILY [facility] Last Admin: 01/10/19 09:57 Dose: 1 mg Insulin Detemir (Levemir Vial) 8 units SQ [facility] Last Admin: 01/09/19 22:02 Dose: 8 unit Levothyroxine Sodium (Synthroid -) 75 mcg PO MoTuWeTh@0700 [facility] Last Admin: 01/10/19 06:18 Dose: Not Given Pregabalin (Lyrica -) 50 mg PO [facility] Last Admin: 01/09/19 22:00 Dose: 50 mg Ranitidine HCl (Zantac -) 150 mg PO [facility] Last Admin: 01/09/19 22:00 Dose: 150 mg Rosuvastatin Calcium (Crestor -) 10 mg PO [facility] Last Admin: 01/09/19 22:00 Dose: 10 mg Sodium Chloride ([place] Nasal [place] -) 2 spray NS BID PRN PRN Reason: NASAL CONGESTION Last Admin: 01/08/19 13:47 Dose: 2 spray Tamsulosin HCl (Flomax -) 0.4 mg PO [facility] Last Admin: 01/09/19 22:00 Dose: 0.4 mg - Objective Vital Signs: Vital Signs Temperature 98.4 F 01/10/19 09:15 Pulse Rate 70 01/10/19 09:15 Respiratory Rate 18 01/10/19 09:15 Blood Pressure 117/53 L 01/10/19 09:15 O2 Sat by Pulse Oximetry (%) 98 01/10/19 08:39 Constitutional: Yes: No Distress, Calm, Thin Neck: Yes: Supple Cardiovascular: Yes: Regular Rate and Rhythm Respiratory: Yes: Regular, CTA Bilaterally Gastrointestinal: Yes: Normal Bowel Sounds, Soft Edema: No Labs: CBC, BMP 01/10/19 06:30 01/10/19 06:30 INR, PTT INR 1.17 (0.83-1.09) H 01/07/19 00:25 - ....Imaging EKG: Report Reviewed (Tele: V-paced) Problem List - Problems (1) ASHLYN (acute kidney injury) Code(s): N17.9 - ACUTE KIDNEY FAILURE, UNSPECIFIED (2) Anemia Code(s): D64.9 - ANEMIA, UNSPECIFIED Qualifiers: (3) Hyperkalemia Code(s): E87.5 - HYPERKALEMIA (4) Weakness Code(s): R53.1 - WEAKNESS (5) ASHD (arteriosclerotic heart disease) Code(s): I25.10 - ATHSCL HEART DISEASE OF [place] CORONARY ARTERY W/O ANG PCTRS (6) CAD (coronary artery disease) Code(s): I25.10 - ATHSCL HEART DISEASE OF [place] CORONARY ARTERY W/O ANG PCTRS Qualifiers: Coronary Disease-Associated Artery/Lesion type: [place] artery [place] vs. transplanted heart: [place] heart Associated angina: without angina Qualified Code(s): I25.10 - Atherosclerotic heart disease of [place] coronary artery without angina pectoris (7) CHF (congestive heart failure) Code(s): I50.9 - HEART FAILURE, UNSPECIFIED (8) CKD (chronic kidney disease) Code(s): N18.9 - CHRONIC KIDNEY DISEASE, UNSPECIFIED Qualifiers: Chronic kidney disease stage: stage 3 (moderate) Qualified Code(s): N18.3 - Chronic kidney disease, stage 3 (moderate) (9) Chronic systolic heart failure Code(s): I50.22 - CHRONIC SYSTOLIC (CONGESTIVE) HEART FAILURE (10) Diabetes mellitus Code(s): E11.9 - TYPE 2 DIABETES MELLITUS WITHOUT COMPLICATIONS Qualifiers: Diabetes mellitus type: type 2 Chronic kidney disease stage: stage 2 (mild ) (11) HTN (hypertension) Code(s): I10 - ESSENTIAL (PRIMARY) HYPERTENSION Qualifiers: Hypertension type: essential hypertension Qualified Code(s): I10 - Essential (primary) hypertension (12) History of implantable cardiac defibrillator (ICD) Code(s): [id number] - (13) Hx of CABG Code(s): Z95.1 - PRESENCE OF AORTOCORONARY BYPASS GRAFT (14) Hypercholesterolemia Code(s): E78.0 - PURE HYPERCHOLESTEROLEMIA * DO NOT USE * (15) Hypothyroidism Code(s): E03.9 - HYPOTHYROIDISM, UNSPECIFIED Qualifiers: Hypothyroidism type: unspecified Qualified Code(s): E03.9 - Hypothyroidism , unspecified (16) ICD (implantable cardioverter-defibrillator) in place Code(s): Z95.810 - PRESENCE OF AUTOMATIC (IMPLANTABLE) CARDIAC DEFIBRILLATOR (17) Peripheral arterial disease Code(s): I73.9 - PERIPHERAL VASCULAR DISEASE, UNSPECIFIED (18) Systolic dysfunction with acute on chronic heart failure Code(s): I50.23 - ACUTE ON CHRONIC SYSTOLIC (CONGESTIVE) HEART FAILURE Assessment/Plan 07/21/2016 Echo: Moderate dilated with mild-mod decreased LV fxn, pacer RV, mild LAE, mod MR, mild TR 08/01/[address]: Mod bilateral effusions R>L, small pericardial effusions 08/02/2018 Echo: Mild-mod decreased LVEF 40-45%, normal RV size and fxn, mild LAE, mild MR, tr TR, [place], [place]. No pericardial effusion 1. Acute on CKD with hyperkalemia and hyponatremia improved 2. Systolic/diastolic LV dysfunction with clinical class I-II NYHA classification LV failure, compensated/euvolemic 3. CAD post CABG, angina pectoris 4. HTN 5. NIDDM 6. Hypercholesterolemia 7. 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 Carotid stenosis 9. Hypothyroidism 10. 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 Anemia post transfusion PLAN: 1. Continue to hold Lasix and Cozaar therapies pending renal function recovery and resolution of hyperkalemia 2. Continue ASA 81 qd, carvedilol 3.125 bid as hemodynamics permit, Crestor 10 qhs 3. Transfuse pRBC to maintain Hgb>8.0 4. PT for gait training
--- NOTE | 2019-01-10 12:08 | PN ---
Progress Note (short form) - Note Progress Note: Resting in NAD on 3 L NC O2. Feels better. No acute events overnight. Intake & Output 01/07/19 01/08/19 01/09/19 01/10/19 23:59 23:59 23:59 23:59 Intake Total 240 1300 370 Output Total 763 108 7121 950 Balance -100 -635 -200 -580 Last Vital Signs Temp Pulse Resp BP Pulse Ox 98.4 F 70 18 117/53 L 98 01/10/19 09:15 01/10/19 09:15 01/10/19 09:15 01/10/19 09:15 01/10/19 08:39 Active Medications Acetaminophen (Tylenol -) 650 mg PO Q6H PRN PRN Reason: PAIN 1-3 Albuterol Sulfate (Ventolin 0.083% Nebulizer Soln -) 1 amp NEB Q6H PRN PRN Reason: SHORT OF BREATH/WHEEZING Aspirin (Asa -) 81 mg PO DAILY [facility] Last Admin: 01/10/19 09:57 Dose: 81 mg Carvedilol (Coreg -) 3.125 mg PO BID [facility] Last Admin: 01/10/19 09:57 Dose: 3.125 mg Finasteride (Proscar -) 5 mg PO DAILY [facility] Last Admin: 01/10/19 09:57 Dose: 5 mg Folic Acid (Folic Acid -) 1 mg PO DAILY [facility] Last Admin: 01/10/19 09:57 Dose: 1 mg Insulin Detemir (Levemir Vial) 8 units SQ HS [facility] Last Admin: 01/09/19 22:02 Dose: 8 unit Levothyroxine Sodium (Synthroid -) 75 mcg PO [email or web address] [facility] Last Admin: 01/10/19 06:18 Dose: Not Given Pregabalin (Lyrica -) 50 mg PO HS [facility] Last Admin: 01/09/19 22:00 Dose: 50 mg Ranitidine HCl (Zantac -) 150 mg PO [facility] Last Admin: 01/09/19 22:00 Dose: 150 mg Rosuvastatin Calcium (Crestor -) 10 mg PO HS [facility] Last Admin: 01/09/19 22:00 Dose: 10 mg Sodium Chloride ([place] Nasal [place] -) 2 spray NS BID PRN PRN Reason: NASAL CONGESTION Last Admin: 01/08/19 13:47 Dose: 2 spray Tamsulosin HCl (Flomax -) 0.4 mg PO HS [facility] Last Admin: 01/09/19 22:00 Dose: 0.4 mg Constitutional: Yes: NAD, thin Eyes: Yes: WNL HENT: Yes: WNL Neck: Yes: WNL Cardiovascular: Yes: Regular Rate and Rhythm, S1, S2 Respiratory: Yes: scattered rhonchi, no wheeze Gastrointestinal: Yes: Normal Bowel Sounds, Soft Extremities: Yes: WNL Edema: No Labs: Laboratory Results - last 24 hr 01/07/19 01/08/19 01/08/19 00:25 06:37 12:45 WBC RBC Hgb Hct MCV MCH MCHC RDW Plt Count MPV Absolute Neuts (auto) Neutrophils % Lymphocytes % Monocytes % Eosinophils % Basophils % Nucleated RBC % Sodium Potassium Chloride Carbon Dioxide Anion Gap BUN Creatinine Est GFR (CKD-EPI)AfAm Est GFR (CKD-EPI)NonAf POC Glucometer Random Glucose Calcium Phosphorus Magnesium Iron 42 TIBC Iron Saturation Unsaturated IBC Transferrin Total Bilirubin AST ALT Alkaline Phosphatase Total Protein Albumin Heparin-Ind Plt Ab Scrn 0.478 H Blood Type A POSITIVE Antibody Screen Negative Crossmatch See Detail 01/09/19 01/09/19 01/09/19 06:15 06:15 21:59 WBC RBC Hgb Hct MCV MCH MCHC RDW Plt Count MPV Absolute Neuts (auto) Neutrophils % Lymphocytes % Monocytes % Eosinophils % Basophils % Nucleated RBC % Sodium Potassium Chloride Carbon Dioxide Anion Gap BUN Creatinine Est GFR (CKD-EPI)AfAm Est GFR (CKD-EPI)NonAf POC Glucometer 197 Random Glucose Calcium Phosphorus Magnesium Iron 32 L TIBC 218 L Iron Saturation 15 Unsaturated IBC 186 Transferrin 167 L Total Bilirubin AST ALT Alkaline Phosphatase Total Protein Albumin Heparin-Ind Plt Ab Scrn Blood Type Antibody Screen Crossmatch 01/10/19 01/10/19 01/10/19 06:15 06:30 06:30 WBC 5.4 RBC 2.71 L Hgb 9.2 L Hct 26.6 L D MCV 98.2 H MCH 33.8 H MCHC 34.4 RDW 14.9 D Plt Count 99 L MPV 9.5 Absolute Neuts (auto) 4.0 Neutrophils % 73.8 Lymphocytes % 8.7 Monocytes % 12.1 H Eosinophils % 4.8 H Basophils % 0.6 Nucleated RBC % 0 Sodium 141 Potassium 4.1 Chloride 109 H Carbon Dioxide 26 Anion Gap 6 L BUN 68.9 H Creatinine 2.2 H Est GFR (CKD-EPI)AfAm 30.10 Est GFR (CKD-EPI)NonAf 25.97 POC Glucometer 97 Random Glucose 97 Calcium 8.1 L Phosphorus 3.7 Magnesium 2.5 H Iron TIBC Iron Saturation Unsaturated IBC Transferrin Total Bilirubin 0.5 AST 20 ALT 29 Alkaline Phosphatase 103 Total Protein 6.5 Albumin 2.6 L Heparin-Ind Plt Ab Scrn Blood Type Antibody Screen Crossmatch Assessment/Plan Problem List - Problems (1) Anemia Code(s): D64.9 - ANEMIA, UNSPECIFIED Qualifiers: (2) Hyperkalemia Code(s): E87.5 - HYPERKALEMIA (3) Weakness Code(s): R53.1 - WEAKNESS (4) ASHD (arteriosclerotic heart disease) Code(s): I25.10 - ATHSCL HEART DISEASE OF [place] CORONARY ARTERY W/O ANG PCTRS (5) Acute on chronic systolic (congestive) heart failure Code(s): I50.23 - ACUTE ON CHRONIC SYSTOLIC (CONGESTIVE) HEART FAILURE (6) CAD (coronary artery disease) Code(s): I25.10 - ATHSCL HEART DISEASE OF [place] CORONARY ARTERY W/O ANG PCTRS Qualifiers: Coronary Disease-Associated Artery/Lesion type: [place] artery [place] vs. transplanted heart: [place] heart Associated angina: without angina Qualified Code(s): I25.10 - Atherosclerotic heart disease of [place] coronary artery without angina pectoris (7) CHF (congestive heart failure) Code(s): I50.9 - HEART FAILURE, UNSPECIFIED (8) CKD (chronic kidney disease) Code(s): N18.9 - CHRONIC KIDNEY DISEASE, UNSPECIFIED Qualifiers: Chronic kidney disease stage: stage 3 (moderate) Qualified Code(s): N18.3 - Chronic kidney disease, stage 3 (moderate) (9) COPD (chronic obstructive pulmonary disease) Code(s): J44.9 - CHRONIC OBSTRUCTIVE PULMONARY DISEASE, UNSPECIFIED Qualifiers: COPD type: chronic bronchitis (10) Carotid artery disease Code(s): I77.9 - DISORDER OF ARTERIES AND ARTERIOLES, UNSPECIFIED Qualifiers: Laterality: unspecified laterality Qualified Code(s): I77.9 - Disorder of arteries and arterioles, unspecified (11) Chronic cholecystitis Code(s): K81.1 - CHRONIC CHOLECYSTITIS (12) Chronic systolic heart failure Code(s): I50.22 - CHRONIC SYSTOLIC (CONGESTIVE) HEART FAILURE (13) Diabetes mellitus Code(s): E11.9 - TYPE 2 DIABETES MELLITUS WITHOUT COMPLICATIONS Qualifiers: Diabetes mellitus type: type 2 Chronic kidney disease stage: stage 2 (mild ) (14) Elevated liver function tests Code(s): R79.89 - OTHER SPECIFIED ABNORMAL FINDINGS OF BLOOD CHEMISTRY (15) HTN (hypertension) Code(s): I10 - ESSENTIAL (PRIMARY) HYPERTENSION Qualifiers: Hypertension type: essential hypertension Qualified Code(s): I10 - Essential (primary) hypertension (16) History of implantable cardiac defibrillator (ICD) Code(s): [id number] - (17) Hx of CABG Code(s): Z95.1 - PRESENCE OF AORTOCORONARY BYPASS GRAFT (18) Hypercholesterolemia Code(s): E78.0 - PURE HYPERCHOLESTEROLEMIA * DO NOT USE * (19) Hypothyroidism Code(s): E03.9 - HYPOTHYROIDISM, UNSPECIFIED Qualifiers: Hypothyroidism type: unspecified Qualified Code(s): E03.9 - Hypothyroidism , unspecified (20) ICD (implantable cardioverter-defibrillator) in place Code(s): Z95.810 - PRESENCE OF AUTOMATIC (IMPLANTABLE) CARDIAC DEFIBRILLATOR (21) Peripheral arterial disease Code(s): I73.9 - PERIPHERAL VASCULAR DISEASE, UNSPECIFIED (22) Pleural effusion Code(s): J90 - PLEURAL EFFUSION, NOT ELSEWHERE CLASSIFIED Assessment/Plan Supplemental O2 as needed PRN diuretics as needed Aspiration precautions Transfusional support per Heme Dr Diggs Problem List - Problems (1) Anemia Code(s): D64.9 - ANEMIA, UNSPECIFIED Qualifiers: (2) Hyperkalemia Code(s): E87.5 - HYPERKALEMIA (3) Weakness Code(s): R53.1 - WEAKNESS (4) ASHD (arteriosclerotic heart disease) Code(s): I25.10 - ATHSCL HEART DISEASE OF [place] CORONARY ARTERY W/O ANG PCTRS (5) Acute on chronic systolic (congestive) heart failure Code(s): I50.23 - ACUTE ON CHRONIC SYSTOLIC (CONGESTIVE) HEART FAILURE (6) CAD (coronary artery disease) Code(s): I25.10 - ATHSCL HEART DISEASE OF [place] CORONARY ARTERY W/O ANG PCTRS Qualifiers: Coronary Disease-Associated Artery/Lesion type: [place] artery [place] vs. transplanted heart: [place] heart Associated angina: without angina Qualified Code(s): I25.10 - Atherosclerotic heart disease of [place] coronary artery without angina pectoris (7) CHF (congestive heart failure) Code(s): I50.9 - HEART FAILURE, UNSPECIFIED (8) CKD (chronic kidney disease) Code(s): N18.9 - CHRONIC KIDNEY DISEASE, UNSPECIFIED Qualifiers: Chronic kidney disease stage: stage 3 (moderate) Qualified Code(s): N18.3 - Chronic kidney disease, stage 3 (moderate) (9) COPD (chronic obstructive pulmonary disease) Code(s): J44.9 - CHRONIC OBSTRUCTIVE PULMONARY DISEASE, UNSPECIFIED Qualifiers: COPD type: chronic bronchitis (10) Carotid artery disease Code(s): I77.9 - DISORDER OF ARTERIES AND ARTERIOLES, UNSPECIFIED Qualifiers: Laterality: unspecified laterality Qualified Code(s): I77.9 - Disorder of arteries and arterioles, unspecified (11) Chronic cholecystitis Code(s): K81.1 - CHRONIC CHOLECYSTITIS (12) Chronic systolic heart failure Code(s): I50.22 - CHRONIC SYSTOLIC (CONGESTIVE) HEART FAILURE (13) Diabetes mellitus Code(s): E11.9 - TYPE 2 DIABETES MELLITUS WITHOUT COMPLICATIONS Qualifiers: Diabetes mellitus type: type 2 Chronic kidney disease stage: stage 2 (mild ) (14) Elevated liver function tests Code(s): R79.89 - OTHER SPECIFIED ABNORMAL FINDINGS OF BLOOD CHEMISTRY (15) HTN (hypertension) Code(s): I10 - ESSENTIAL (PRIMARY) HYPERTENSION Qualifiers: Hypertension type: essential hypertension Qualified Code(s): I10 - Essential (primary) hypertension (16) History of implantable cardiac defibrillator (ICD) Code(s): [id number] - (17) Hx of CABG Code(s): Z95.1 - PRESENCE OF AORTOCORONARY BYPASS GRAFT (18) Hypercholesterolemia Code(s): E78.0 - PURE HYPERCHOLESTEROLEMIA * DO NOT USE * (19) Hypothyroidism Code(s): E03.9 - HYPOTHYROIDISM, UNSPECIFIED Qualifiers: Hypothyroidism type: unspecified Qualified Code(s): E03.9 - Hypothyroidism , unspecified (20) ICD (implantable cardioverter-defibrillator) in place Code(s): Z95.810 - PRESENCE OF AUTOMATIC (IMPLANTABLE) CARDIAC DEFIBRILLATOR (21) Peripheral arterial disease Code(s): I73.9 - PERIPHERAL VASCULAR DISEASE, UNSPECIFIED (22) Pleural effusion Code(s): J90 - PLEURAL EFFUSION, NOT ELSEWHERE CLASSIFIED
--- NOTE | 2019-01-10 12:26 | PN ---
Progress Note, Physician History of Present Illness: Pt w/o SOB, CP, palpitations, abd apin. Pt with generalized weakness, unable to walk - Current Medication List Current Medications: Active Medications Acetaminophen (Tylenol -) 650 mg PO Q6H PRN PRN Reason: PAIN 1-3 Albuterol Sulfate (Ventolin 0.083% Nebulizer Soln -) 1 amp NEB Q6H PRN PRN Reason: SHORT OF BREATH/WHEEZING Aspirin (Asa -) 81 mg PO DAILY [facility] Last Admin: 01/10/19 09:57 Dose: 81 mg Carvedilol (Coreg -) 3.125 mg PO BID [facility] Last Admin: 01/10/19 09:57 Dose: 3.125 mg Finasteride (Proscar -) 5 mg PO DAILY [facility] Last Admin: 01/10/19 09:57 Dose: 5 mg Folic Acid (Folic Acid -) 1 mg PO DAILY [facility] Last Admin: 01/10/19 09:57 Dose: 1 mg Insulin Detemir (Levemir Vial) 8 units SQ [facility] Last Admin: 01/09/19 22:02 Dose: 8 unit Levothyroxine Sodium (Synthroid -) 75 mcg PO [email or web address] [facility] Last Admin: 01/10/19 06:18 Dose: Not Given Pregabalin (Lyrica -) 50 mg PO [facility] Last Admin: 01/09/19 22:00 Dose: 50 mg Ranitidine HCl (Zantac -) 150 mg PO [facility] Last Admin: 01/09/19 22:00 Dose: 150 mg Rosuvastatin Calcium (Crestor -) 10 mg PO [facility] Last Admin: 01/09/19 22:00 Dose: 10 mg Sodium Chloride ([place] Nasal [place] -) 2 spray NS BID PRN PRN Reason: NASAL CONGESTION Last Admin: 01/08/19 13:47 Dose: 2 spray Tamsulosin HCl (Flomax -) 0.4 mg PO [facility] Last Admin: 01/09/19 22:00 Dose: 0.4 mg - Objective Vital Signs: Vital Signs Temperature 98.4 F 01/10/19 09:15 Pulse Rate 70 01/10/19 09:15 Respiratory Rate 18 01/10/19 09:15 Blood Pressure 117/53 L 01/10/19 09:15 O2 Sat by Pulse Oximetry (%) 98 01/10/19 08:39 Constitutional: Yes: No Distress, Calm Cardiovascular: Yes: Regular Rate and Rhythm, S1, S2 Respiratory: Yes: Regular, CTA Bilaterally. No: Rales, Rhonchi Gastrointestinal: Yes: Normal Bowel Sounds, Soft. No: Tenderness Edema: No Neurological: Yes: Alert Labs: CBC, BMP 01/10/19 06:30 01/10/19 06:30 INR, PTT INR 1.17 (0.83-1.09) H 01/07/19 00:25 Problem List - Problems (1) ASHLYN (acute kidney injury) Code(s): N17.9 - ACUTE KIDNEY FAILURE, UNSPECIFIED (2) Anemia Code(s): D64.9 - ANEMIA, UNSPECIFIED Qualifiers: (3) Thrombocytopenia Code(s): D69.6 - THROMBOCYTOPENIA, UNSPECIFIED (4) Hyperkalemia Code(s): E87.5 - HYPERKALEMIA (5) Weakness Code(s): R53.1 - WEAKNESS (6) Fall Code(s): W19.XXXA - UNSPECIFIED FALL, INITIAL ENCOUNTER (7) ASHD (arteriosclerotic heart disease) Code(s): I25.10 - ATHSCL HEART DISEASE OF [place] CORONARY ARTERY W/O ANG PCTRS (8) History of implantable cardiac defibrillator (ICD) Code(s): [id number] - (9) CHF (congestive heart failure) Code(s): I50.9 - HEART FAILURE, UNSPECIFIED (10) CKD (chronic kidney disease) Code(s): N18.9 - CHRONIC KIDNEY DISEASE, UNSPECIFIED Qualifiers: Chronic kidney disease stage: stage 3 (moderate) Qualified Code(s): N18.3 - Chronic kidney disease, stage 3 (moderate) (11) Diabetes mellitus Code(s): E11.9 - TYPE 2 DIABETES MELLITUS WITHOUT COMPLICATIONS Qualifiers: Diabetes mellitus type: type 2 Chronic kidney disease stage: stage 2 (mild ) (12) BPH (benign prostatic hyperplasia) Code(s): N40.0 - BENIGN PROSTATIC HYPERPLASIA WITHOUT LOWER URINRY TRACT SYMP (13) COPD (chronic obstructive pulmonary disease) Code(s): J44.9 - CHRONIC OBSTRUCTIVE PULMONARY DISEASE, UNSPECIFIED Qualifiers: COPD type: chronic bronchitis Assessment/Plan s/p PRBC Tx; to moitor H/H Creatinine is improving, Continue [place] Lasix PRN ARB on hold PT CM for placement AM labs Case was d/w pt's nurse
--- NOTE | 2019-01-10 12:38 | PN ---
Progress Note (short form) - Note Progress Note: Renal follow up for ASHLYN Pt seen and examined at the bedside no acute complaints making urine via foely no sob, cp, abd pain Vital Signs Temperature 98.4 F 01/10/19 09:15 Pulse Rate 70 01/10/19 09:15 Respiratory Rate 18 01/10/19 09:15 Blood Pressure 117/53 L 01/10/19 09:15 O2 Sat by Pulse Oximetry (%) 98 01/10/19 08:39 Intake & Output 01/07/19 01/08/19 01/09/19 01/10/19 23:59 23:59 23:59 23:59 Intake Total 240 1300 370 Output Total 545 724 0645 950 Balance -100 -635 -200 -580 NAD no JVD RRR Dec BS, no overt rales soft NT, mild distension over lower abdomen no LE edema CBC, BMP 01/10/19 06:30 01/10/19 06:30 Current Medications Acetaminophen (Tylenol -) 650 mg PO Q6H PRN PRN Reason: PAIN 1-3 Albuterol Sulfate (Ventolin 0.083% Nebulizer Soln -) 1 amp NEB Q6H PRN PRN Reason: SHORT OF BREATH/WHEEZING Aspirin (Asa -) 81 mg PO DAILY [facility] Last Admin: 01/10/19 09:57 Dose: 81 mg Carvedilol (Coreg -) 3.125 mg PO BID [facility] Last Admin: 01/10/19 09:57 Dose: 3.125 mg Finasteride (Proscar -) 5 mg PO DAILY [facility] Last Admin: 01/10/19 09:57 Dose: 5 mg Folic Acid (Folic Acid -) 1 mg PO DAILY [facility] Last Admin: 01/10/19 09:57 Dose: 1 mg Insulin Detemir (Levemir Vial) 8 units SQ HS [facility] Last Admin: 01/09/19 22:02 Dose: 8 unit Levothyroxine Sodium (Synthroid -) 75 mcg PO [email or web address] [facility] Last Admin: 01/10/19 06:18 Dose: Not Given Pregabalin (Lyrica -) 50 mg PO HS [facility] Last Admin: 01/09/19 22:00 Dose: 50 mg Ranitidine HCl (Zantac -) 150 mg PO [facility] Last Admin: 01/09/19 22:00 Dose: 150 mg Rosuvastatin Calcium (Crestor -) 10 mg PO HS [facility] Last Admin: 01/09/19 22:00 Dose: 10 mg Sodium Chloride ([place] Nasal [place] -) 2 spray NS BID PRN PRN Reason: NASAL CONGESTION Last Admin: 01/08/19 13:47 Dose: 2 spray Tamsulosin HCl (Flomax -) 0.4 mg PO HS [facility] Last Admin: 01/09/19 22:00 Dose: 0.4 mg 88 year old gentleman wtih hx of CAD, CABG, PIC, LV dysfunction, PPM, Hypertension, CKD, Carotid stenosis, BPH with urinary retention who presented from home with weakness and falls and found to have hyperkalemia and ASHLYN. #ASHLYN on CKD suspect due to urinary retention +/- Bactrium related injury #CKD #Hyperkalemia #CAD #Cardiomyopathy #Right pleural effusion #Falls/weakness Renal function and potassium improved maintain pulliam until renal function at baseline (Cr 1.7-2) bladder US showed mild retention continue flomax and proscar hold diuretics and ARB for now continue flomax no acute indication for [employer] Thank you Oscar Madrid DO
[2019-01-10] MEDS: PREGABALIN 50 MG CAPSULE PO SCH (22:26)
[2019-01-10] MEDS: ROSUVASTATIN CA 10 MG TABLET (FP) PO SCH (22:26)
[2019-01-10] MEDS: TAMSULOSIN HCL 0.4 MG CAP PO SCH (22:26)
[2019-01-10] MEDS: RANITIDINE HCL 150 MG TABLET (FP) PO SCH (22:26)
[2019-01-10] MEDS: INSULIN (LEVEMIR) 100 UNITS/ML UNITS SQ SCH (22:27)
[2019-01-11 04:13] LABS: IGG QN SERUM 1604 mg/dL (700-1600); IGM IMMUNOGLOBULIN 64 mg/dL (15-143)
[2019-01-11 05:50] LABS: HEMATOCRIT 26.1 % (35.4-49); HEMOGLOBIN 9.1 GM/dL (11.7-16.9); MCH 34.2 pg (25.7-33.7); MCHC 34.7 g/dl (32.0-35.9); MEAN CELL VOLUME 98.6 fl (80-96); MEAN PLT VOLUME 9.3 fl (7.5-11.1); PLATELET COUNT 101 K/MM3 (134-434); RBC 2.65 M/mm3 (4.00-5.60); RDW 14.8 % (11.9-15.9); WHITE BLOOD COUNT 5.6 K/mm3 (4.0-10.0)
[2019-01-11 06:15] LABS: ALBUMIN 2.6 g/dl (3.4-5.0); BILIRUBIN,TOTAL 0.5 mg/dL (0.2-1); BLOOD UREA NITROGEN 68.2 mg/dL (7-18); CALCIUM 8.2 mg/dL (8.5-10.1); CREATININE 1.9 mg/dL (0.55-1.3); MAGNESIUM 2.4 mg/dL (1.8-2.4); PHOSPHOROUS 3.4 mg/dL (2.5-4.9); POTASSIUM 4.1 mmol/L (3.5-5.1); TOT PROT 6.5 g/dl (6.4-8.2)
[2019-01-11] MEDS: FOLIC ACID 1 MG TABLET (FP) PO SCH (09:05)
[2019-01-11] MEDS: FINASTERIDE 5 MG TABLET (FP) PO SCH (09:05)
[2019-01-11] MEDS: CARVEDILOL 3.125 MG TABLET (FP) PO SCH ×2 (09:05→21:45)
[2019-01-11] MEDS: ASPIRIN 81 MG CHEWABLE TABLETS PO SCH (09:05)
--- NOTE | 2019-01-11 09:17 | PN ---
Progress Note, Physician History of Present Illness: Resting comfortably. Weakness improved. - Current Medication List Current Medications: Active Medications Acetaminophen (Tylenol -) 650 mg PO Q6H PRN PRN Reason: PAIN 1-3 Albuterol Sulfate (Ventolin 0.083% Nebulizer Soln -) 1 amp NEB Q6H PRN PRN Reason: SHORT OF BREATH/WHEEZING Aspirin (Asa -) 81 mg PO DAILY [facility] Last Admin: 01/11/19 09:05 Dose: 81 mg Carvedilol (Coreg -) 3.125 mg PO BID [facility] Last Admin: 01/11/19 09:05 Dose: 3.125 mg Finasteride (Proscar -) 5 mg PO DAILY [facility] Last Admin: 01/11/19 09:05 Dose: 5 mg Folic Acid (Folic Acid -) 1 mg PO DAILY [facility] Last Admin: 01/11/19 09:05 Dose: 1 mg Insulin Detemir (Levemir Vial) 8 units SQ [facility] Last Admin: 01/10/19 22:27 Dose: 8 unit Levothyroxine Sodium (Synthroid -) 75 mcg PO [email or web address] [facility] Last Admin: 01/10/19 06:18 Dose: Not Given Pregabalin (Lyrica -) 50 mg PO [facility] Last Admin: 01/10/19 22:26 Dose: 50 mg Ranitidine HCl (Zantac -) 150 mg PO [facility] Last Admin: 01/10/19 22:26 Dose: 150 mg Rosuvastatin Calcium (Crestor -) 10 mg PO [facility] Last Admin: 01/10/19 22:26 Dose: 10 mg Sodium Chloride ([place] Nasal [place] -) 2 spray NS BID PRN PRN Reason: NASAL CONGESTION Last Admin: 01/08/19 13:47 Dose: 2 spray Tamsulosin HCl (Flomax -) 0.4 mg PO [facility] Last Admin: 01/10/19 22:26 Dose: 0.4 mg - Objective Vital Signs: Vital Signs Temperature 97.7 F 01/11/19 06:00 Pulse Rate 64 01/11/19 06:00 Respiratory Rate 16 01/11/19 06:00 Blood Pressure 104/41 L 01/11/19 06:00 O2 Sat by Pulse Oximetry (%) 98 01/10/19 20:52 Constitutional: Yes: No Distress, Calm, Thin Neck: Yes: Supple Cardiovascular: Yes: Regular Rate and Rhythm Respiratory: Yes: Regular, Diminished, On Nasal O2 Gastrointestinal: Yes: Normal Bowel Sounds, Soft Edema: No Labs: CBC, BMP 01/11/19 05:00 01/11/19 05:00 INR, PTT INR 1.17 (0.83-1.09) H 01/07/19 00:25 - ....Imaging EKG: Report Reviewed (Tele: AV paced) Problem List - Problems (1) ASHLYN (acute kidney injury) Code(s): N17.9 - ACUTE KIDNEY FAILURE, UNSPECIFIED (2) Anemia Code(s): D64.9 - ANEMIA, UNSPECIFIED Qualifiers: (3) Hyperkalemia Code(s): E87.5 - HYPERKALEMIA (4) Weakness Code(s): R53.1 - WEAKNESS (5) ASHD (arteriosclerotic heart disease) Code(s): I25.10 - ATHSCL HEART DISEASE OF [place] CORONARY ARTERY W/O ANG PCTRS (6) CAD (coronary artery disease) Code(s): I25.10 - ATHSCL HEART DISEASE OF [place] CORONARY ARTERY W/O ANG PCTRS Qualifiers: Coronary Disease-Associated Artery/Lesion type: [place] artery [place] vs. transplanted heart: [place] heart Associated angina: without angina Qualified Code(s): I25.10 - Atherosclerotic heart disease of [place] coronary artery without angina pectoris (7) CHF (congestive heart failure) Code(s): I50.9 - HEART FAILURE, UNSPECIFIED (8) CKD (chronic kidney disease) Code(s): N18.9 - CHRONIC KIDNEY DISEASE, UNSPECIFIED Qualifiers: Chronic kidney disease stage: stage 3 (moderate) Qualified Code(s): N18.3 - Chronic kidney disease, stage 3 (moderate) (9) Chronic systolic heart failure Code(s): I50.22 - CHRONIC SYSTOLIC (CONGESTIVE) HEART FAILURE (10) Diabetes mellitus Code(s): E11.9 - TYPE 2 DIABETES MELLITUS WITHOUT COMPLICATIONS Qualifiers: Diabetes mellitus type: type 2 Chronic kidney disease stage: stage 2 (mild ) (11) HTN (hypertension) Code(s): I10 - ESSENTIAL (PRIMARY) HYPERTENSION Qualifiers: Hypertension type: essential hypertension Qualified Code(s): I10 - Essential (primary) hypertension (12) History of implantable cardiac defibrillator (ICD) Code(s): [id number] - (13) Hx of CABG Code(s): Z95.1 - PRESENCE OF AORTOCORONARY BYPASS GRAFT (14) Hypercholesterolemia Code(s): E78.0 - PURE HYPERCHOLESTEROLEMIA * DO NOT USE * (15) Hypothyroidism Code(s): E03.9 - HYPOTHYROIDISM, UNSPECIFIED Qualifiers: Hypothyroidism type: unspecified Qualified Code(s): E03.9 - Hypothyroidism , unspecified (16) ICD (implantable cardioverter-defibrillator) in place Code(s): Z95.810 - PRESENCE OF AUTOMATIC (IMPLANTABLE) CARDIAC DEFIBRILLATOR (17) Peripheral arterial disease Code(s): I73.9 - PERIPHERAL VASCULAR DISEASE, UNSPECIFIED (18) Systolic dysfunction with acute on chronic heart failure Code(s): I50.23 - ACUTE ON CHRONIC SYSTOLIC (CONGESTIVE) HEART FAILURE Assessment/Plan 07/21/2016 Echo: Moderate dilated with mild-mod decreased LV fxn, pacer RV, mild LAE, mod MR, mild TR 08/01/[address]: Mod bilateral effusions R>L, small pericardial effusions 08/02/2018 Echo: Mild-mod decreased LVEF 40-45%, normal RV size and fxn, mild LAE, mild MR, tr TR, [place], [place]. No pericardial effusion 1. Acute on CKD with hyperkalemia and hyponatremia improved 2. Systolic/diastolic LV dysfunction with clinical class I-II NYHA classification LV failure, compensated/euvolemic 3. CAD post CABG, angina pectoris 4. HTN 5. NIDDM 6. Hypercholesterolemia 7. 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 Carotid stenosis 9. Hypothyroidism 10. PAD post COKE LOADER and amputation (TMA) 11. Anemia post transfusion 12. BPH with hematuria cleared PLAN: 1. Continue to hold Lasix and Cozaar therapies pending renal function recovery and resolution of hyperkalemia 2. Continue ASA 81 qd, carvedilol 3.125 bid as hemodynamics permit, Crestor 10 qhs 3. Transfuse pRBC to maintain Hgb>8.0 4. PT for gait training, continue flomax and proscar, d/c pulliam and voiding trial
--- NOTE | 2019-01-11 09:21 | CON.GU ---
Consult Consult Specialty:: Referred by:: medicine Reason for Consultation:: hematuria - History of Present Illness Chief Complaint: hematuria History of Present Illness: evon has a history of BPH in the past with hematuria. He had a fall and was admitted. Pulliam was placed with hematuria but is now resolved. - History Source History Provided By: Medical Record Limitations to Obtaining History: No Limitations - Past Medical History Cardio/Vascular: Yes: CAD (CABG), HTN, Mitral Insufficiency, Other (ICD for induced ventricular tachycardia) Pulmonary: Yes: COPD Gastrointestinal: Yes: Other (recent C diff colitis, gallstones, chronic cholecystitis) Renal/: Yes: Renal Failure (had ARF last month in September creat bumped to 2), BPH, Renal Calculi Infectious Disease: Yes: C-Diff Musculoskeletal: Yes: Other (L foot wound s/p partial amputation) Endocrine: Yes: Diabetes Mellitus, Other (diabetic neuropathy) - Past Surgical History Past Surgical History: Yes: AICD, Amputation (TMA), Bypass, CABG - Alcohol/Substance Use Hx Alcohol Use: No History of Substance Use: reports: None - Smoking History Smoking history: Former smoker Have you smoked in the past 12 months: No Aproximately how many cigarettes per day: 30 If you are a former smoker, when did you quit?: 2009 - Social History Usual Living Arrangement: With Spouse ADL: Family Assistance History of Recent Travel: No Home Medications - Allergies Allergies/Adverse Reactions: Allergies Allergy/AdvReac Type Severity Reaction Status Date / Time No Known Allergies Allergy Verified 01/06/19 23:47 - Home Medications Home Medications: Ambulatory Orders Ascorbate Calcium [Vitamin C] 500 mg PO DAILY 01/20/14 Aspirin [ASA -] 81 mg PO DAILY 01/20/14 Carvedilol 3.125 mg PO BID 01/20/14 Clopidogrel Bisulfate [Plavix -] 75 mg PO DAILY 01/20/14 Folic Acid - 1 mg PO DAILY 01/20/14 Pregabalin [Lyrica -] 50 mg PO HS 01/20/14 Ranitidine HCl [Zantac] 150 mg PO HS 01/20/14 Tamsulosin HCl [Flomax -] 0.4 mg PO HS 01/20/14 Magnesium 250 mg PO DAILY 10/25/15 Levothyroxine [Synthroid -] 75 mcg PO MOTUWETH 07/21/16 Ergocalciferol (Vitamin D2) [Vitamin D2] 2,000 unit PO DAILY 06/09/17 Finasteride 0.05 mg PO DAILY 06/09/17 Furosemide [Lasix -] 20 mg PO DAILY 06/09/17 Insulin Glargine,Hum.rec.anlog [Lantus (10mL VIAL) -] 10 units SQ HS 06/09/17 Multivit-Min/FA/Lycopen/Lutein [Centrum Silver Tablet] 1 tab PO DAILY 06/09/17 Rosuvastatin Calcium 10 mg PO HS 06/09/17 Acetaminophen [Tylenol .Regular Strength -] 650 mg PO Q6H PRN tablet 08/07/18 Losartan Potassium [Cozaar -] 12.5 mg PO DAILY 01/06/19 Family Disease History - Family Disease History Family Disease History: Heart Disease: Mother, Brother (liver CA), CA: Brother Review of Systems - Review of Systems Genitourinary: denies: Hematuria Physical Exam- Vital Signs: Vital Signs Temperature 97.7 F 01/11/19 06:00 Pulse Rate 64 01/11/19 06:00 Respiratory Rate 16 01/11/19 06:00 Blood Pressure 104/41 L 01/11/19 06:00 O2 Sat by Pulse Oximetry (%) 98 01/10/19 20:52 Renal/: Yes: Pulliam Present. No: Hematuria Labs: CBC, BMP 01/11/19 05:00 01/11/19 05:00 Assessment/Plan BPH with hematuria after fall. pulliam is clear this morning. trial of void.
--- NOTE | 2019-01-11 11:47 | PN ---
Progress Note (short form) - Note Progress Note: Patient seen and examined \ States breathing improved with BIPAP Last Vital Signs Temp Pulse Resp BP Pulse Ox 97.3 F L 70 20 131/97 98 01/11/19 09:00 01/11/19 09:00 01/11/19 09:00 01/11/19 09:00 01/10/19 20:52 HEENT: LOVE, EOM Intact Oropharynx: No thrush, No mucositis Cor: RSR, No murmurs, No gallops Lungs: diminished breath sounds bilaterally Abd: Soft, Normal bowel sounds, No organomegaly Ext:s/p amputation left foot Skin: numerous ecchymoses CBC, BMP 01/11/19 05:00 01/11/19 05:00 Current Medications Generic Name Dose Route Start Last Admin Trade Name Freq PRN Reason Stop Dose Admin Acetaminophen 650 mg 01/07/19 08:20 Tylenol - PO Q6H PRN PAIN 1-3 Albuterol Sulfate 1 amp 01/09/19 20:44 Ventolin 0.083% Nebulizer Soln - NEB Q6H PRN SHORT OF BREATH/WHEEZING Aspirin 81 mg 01/07/19 10:00 01/11/19 09:05 Asa - PO 81 mg DAILY ABBEY Administration Carvedilol 3.125 mg 01/07/19 10:00 01/11/19 09:05 Coreg - PO 3.125 mg BID ABBEY Administration Finasteride 5 mg 01/09/19 10:00 01/11/19 09:05 Proscar - PO 5 mg DAILY ABBEY Administration Folic Acid 1 mg 01/07/19 10:00 01/11/19 09:05 Folic Acid - PO 1 mg DAILY ABBEY Administration Insulin Detemir 8 units 01/09/19 08:17 01/10/19 22:27 Levemir Vial SQ 8 unit HS ABBEY Administration Levothyroxine Sodium 75 mcg 01/07/19 11:00 01/10/19 06:18 Synthroid - PO Not Given MoTuWeTh@0700 ABBEY Pregabalin 50 mg 01/07/19 22:00 01/10/19 22:26 Lyrica - PO 50 mg HS ABBEY Administration Ranitidine HCl 150 mg 01/07/19 22:00 01/10/19 22:26 Zantac - PO 150 mg HS ABBEY Administration Rosuvastatin Calcium 10 mg 01/07/19 22:00 01/10/19 22:26 Crestor - PO 10 mg HS ABBEY Administration Sodium Chloride 2 spray 01/08/19 10:48 01/08/19 13:47 [place] Nasal [place] - NS 2 spray BID PRN Administration NASAL CONGESTION Tamsulosin HCl 0.4 mg 01/07/19 22:00 01/10/19 22:26 Flomax - PO 0.4 mg HS ABBEY Administration Impression: Anemia - macrocytic - ordered Flow cytometry , FISH, cytogenetics Thrombocytopenia COPD PVD S/P amputation DM ICD HPL Hematuria ASHLYN S/p one unit of packed cells with stable Hct. To monitor
--- NOTE | 2019-01-11 11:51 | PN ---
Progress Note, Physician Chief Complaint: the patient seen and examined in his room. Has not move his bowels since admission. - Current Medication List Current Medications: Active Medications Acetaminophen (Tylenol -) 650 mg PO Q6H PRN PRN Reason: PAIN 1-3 Albuterol Sulfate (Ventolin 0.083% Nebulizer Soln -) 1 amp NEB Q6H PRN PRN Reason: SHORT OF BREATH/WHEEZING Aspirin (Asa -) 81 mg PO DAILY [facility] Last Admin: 01/11/19 09:05 Dose: 81 mg Carvedilol (Coreg -) 3.125 mg PO BID [facility] Last Admin: 01/11/19 09:05 Dose: 3.125 mg Finasteride (Proscar -) 5 mg PO DAILY [facility] Last Admin: 01/11/19 09:05 Dose: 5 mg Folic Acid (Folic Acid -) 1 mg PO DAILY [facility] Last Admin: 01/11/19 09:05 Dose: 1 mg Insulin Detemir (Levemir Vial) 8 units SQ [facility] Last Admin: 01/10/19 22:27 Dose: 8 unit Levothyroxine Sodium (Synthroid -) 75 mcg PO [email or web address] [facility] Last Admin: 01/10/19 06:18 Dose: Not Given Polyethylene Glycol (Miralax (For Daily Use) -) 17 gm PO DAILY [facility] Pregabalin (Lyrica -) 50 mg PO [facility] Last Admin: 01/10/19 22:26 Dose: 50 mg Ranitidine HCl (Zantac -) 150 mg PO [facility] Last Admin: 01/10/19 22:26 Dose: 150 mg Rosuvastatin Calcium (Crestor -) 10 mg PO [facility] Last Admin: 01/10/19 22:26 Dose: 10 mg Sodium Chloride ([place] Nasal [place] -) 2 spray NS BID PRN PRN Reason: NASAL CONGESTION Last Admin: 01/08/19 13:47 Dose: 2 spray Tamsulosin HCl (Flomax -) 0.4 mg PO [facility] Last Admin: 01/10/19 22:26 Dose: 0.4 mg - Objective Vital Signs: Vital Signs Temperature 97.3 F L 01/11/19 09:00 Pulse Rate 70 01/11/19 09:00 Respiratory Rate 20 01/11/19 09:00 Blood Pressure 131/97 01/11/19 09:00 O2 Sat by Pulse Oximetry (%) 98 06/27/19 20:52 Labs: CBC, BMP 01/11/19 05:00 01/11/19 05:00 INR, PTT INR 1.17 (0.83-1.09) H 01/07/19 00:25
[2019-01-11] MEDS: POLYETHYLENE GLYCOL 3350 119 GM BTL PO SCH (12:29)
--- NOTE | 2019-01-11 13:45 | PN ---
Progress Note, Physician History of Present Illness: pulmonary alert,no distress,-sob,on nsal cannula - Current Medication List Current Medications: Active Medications Acetaminophen (Tylenol -) 650 mg PO Q6H PRN PRN Reason: PAIN 1-3 Albuterol Sulfate (Ventolin 0.083% Nebulizer Soln -) 1 amp NEB Q6H PRN PRN Reason: SHORT OF BREATH/WHEEZING Aspirin (Asa -) 81 mg PO DAILY [facility] Last Admin: 01/11/19 09:05 Dose: 81 mg Carvedilol (Coreg -) 3.125 mg PO BID [facility] Last Admin: 01/11/19 09:05 Dose: 3.125 mg Finasteride (Proscar -) 5 mg PO DAILY [facility] Last Admin: 01/11/19 09:05 Dose: 5 mg Folic Acid (Folic Acid -) 1 mg PO DAILY [facility] Last Admin: 01/11/19 09:05 Dose: 1 mg Insulin Detemir (Levemir Vial) 8 units SQ [facility] Last Admin: 01/10/19 22:27 Dose: 8 unit Levothyroxine Sodium (Synthroid -) 75 mcg PO MoTuWeTh@0700 [facility] Last Admin: 01/10/19 06:18 Dose: Not Given Polyethylene Glycol (Miralax (For Daily Use) -) 17 gm PO DAILY [facility] Last Admin: 01/11/19 12:29 Dose: 17 gm Pregabalin (Lyrica -) 50 mg PO [facility] Last Admin: 01/10/19 22:26 Dose: 50 mg Ranitidine HCl (Zantac -) 150 mg PO [facility] Last Admin: 01/10/19 22:26 Dose: 150 mg Rosuvastatin Calcium (Crestor -) 10 mg PO [facility] Last Admin: 01/10/19 22:26 Dose: 10 mg Sodium Chloride ([place] Nasal [place] -) 2 spray NS BID PRN PRN Reason: NASAL CONGESTION Last Admin: 01/08/19 13:47 Dose: 2 spray Tamsulosin HCl (Flomax -) 0.4 mg PO [facility] Last Admin: 01/10/19 22:26 Dose: 0.4 mg - Objective Vital Signs: Vital Signs Temperature 97.3 F L 01/11/19 09:00 Pulse Rate 70 01/11/19 09:00 Respiratory Rate 20 01/11/19 09:00 Blood Pressure 131/97 01/11/19 09:00 O2 Sat by Pulse Oximetry (%) 98 01/10/19 20:52 Constitutional: Yes: Calm, Thin Eyes: Yes: WNL HENT: Yes: WNL Neck: Yes: WNL Cardiovascular: Yes: Regular Rate and Rhythm, S1, S2 Respiratory: Yes: Rales (bilateral crackles 1/3 up) Gastrointestinal: Yes: Normal Bowel Sounds, Soft Extremities: Yes: WNL Edema: No Labs: CBC, BMP 01/11/19 05:00 01/11/19 05:00 INR, PTT INR 1.17 (0.83-1.09) H 01/07/19 00:25 Assessment/Plan Problem List - Problems (1) Anemia Code(s): D64.9 - ANEMIA, UNSPECIFIED Qualifiers: (2) Hyperkalemia Code(s): E87.5 - HYPERKALEMIA (3) Weakness Code(s): R53.1 - WEAKNESS (4) ASHD (arteriosclerotic heart disease) Code(s): I25.10 - ATHSCL HEART DISEASE OF [place] CORONARY ARTERY W/O ANG PCTRS (5) Acute on chronic systolic (congestive) heart failure Code(s): I50.23 - ACUTE ON CHRONIC SYSTOLIC (CONGESTIVE) HEART FAILURE (6) CAD (coronary artery disease) Code(s): I25.10 - ATHSCL HEART DISEASE OF [place] CORONARY ARTERY W/O ANG PCTRS Qualifiers: Coronary Disease-Associated Artery/Lesion type: [place] artery [place] vs. transplanted heart: [place] heart Associated angina: without angina Qualified Code(s): I25.10 - Atherosclerotic heart disease of [place] coronary artery without angina pectoris (7) CHF (congestive heart failure) Code(s): I50.9 - HEART FAILURE, UNSPECIFIED (8) CKD (chronic kidney disease) Code(s): N18.9 - CHRONIC KIDNEY DISEASE, UNSPECIFIED Qualifiers: Chronic kidney disease stage: stage 3 (moderate) Qualified Code(s): N18.3 - Chronic kidney disease, stage 3 (moderate) (9) COPD (chronic obstructive pulmonary disease) Code(s): J44.9 - CHRONIC OBSTRUCTIVE PULMONARY DISEASE, UNSPECIFIED Qualifiers: COPD type: chronic bronchitis (10) Carotid artery disease Code(s): I77.9 - DISORDER OF ARTERIES AND ARTERIOLES, UNSPECIFIED Qualifiers: Laterality: unspecified laterality Qualified Code(s): I77.9 - Disorder of arteries and arterioles, unspecified (11) Chronic cholecystitis Code(s): K81.1 - CHRONIC CHOLECYSTITIS (12) Chronic systolic heart failure Code(s): I50.22 - CHRONIC SYSTOLIC (CONGESTIVE) HEART FAILURE (13) Diabetes mellitus Code(s): E11.9 - TYPE 2 DIABETES MELLITUS WITHOUT COMPLICATIONS Qualifiers: Diabetes mellitus type: type 2 Chronic kidney disease stage: stage 2 (mild ) (14) Elevated liver function tests Code(s): R79.89 - OTHER SPECIFIED ABNORMAL FINDINGS OF BLOOD CHEMISTRY (15) HTN (hypertension) Code(s): I10 - ESSENTIAL (PRIMARY) HYPERTENSION Qualifiers: Hypertension type: essential hypertension Qualified Code(s): I10 - Essential (primary) hypertension (16) History of implantable cardiac defibrillator (ICD) Code(s): [id number] - (17) Hx of CABG Code(s): Z95.1 - PRESENCE OF AORTOCORONARY BYPASS GRAFT (18) Hypercholesterolemia Code(s): E78.0 - PURE HYPERCHOLESTEROLEMIA * DO NOT USE * (19) Hypothyroidism Code(s): E03.9 - HYPOTHYROIDISM, UNSPECIFIED Qualifiers: Hypothyroidism type: unspecified Qualified Code(s): E03.9 - Hypothyroidism , unspecified (20) ICD (implantable cardioverter-defibrillator) in place Code(s): Z95.810 - PRESENCE OF AUTOMATIC (IMPLANTABLE) CARDIAC DEFIBRILLATOR (21) Peripheral arterial disease Code(s): I73.9 - PERIPHERAL VASCULAR DISEASE, UNSPECIFIED (22) Pleural effusion Code(s): J90 - PLEURAL EFFUSION, NOT ELSEWHERE CLASSIFIED Assessment/Plan CXR O2 as needed NIPPV as needed Diuretics as needed Aspiration precautions monitor lytes,renal function normal transfusion threshold DR NAVARRO
--- NOTE | 2019-01-11 14:29 | PN ---
Progress Note, Physician History of Present Illness: Pt w/o SOB, CP, palpitations, abd pain. - Current Medication List Current Medications: Active Medications Acetaminophen (Tylenol -) 650 mg PO Q6H PRN PRN Reason: PAIN 1-3 Albuterol Sulfate (Ventolin 0.083% Nebulizer Soln -) 1 amp NEB Q6H PRN PRN Reason: SHORT OF BREATH/WHEEZING Aspirin (Asa -) 81 mg PO DAILY [facility] Last Admin: 01/11/19 09:05 Dose: 81 mg Carvedilol (Coreg -) 3.125 mg PO BID [facility] Last Admin: 01/11/19 09:05 Dose: 3.125 mg Finasteride (Proscar -) 5 mg PO DAILY [facility] Last Admin: 01/11/19 09:05 Dose: 5 mg Folic Acid (Folic Acid -) 1 mg PO DAILY [facility] Last Admin: 01/11/19 09:05 Dose: 1 mg Insulin Detemir (Levemir Vial) 8 units SQ [facility] Last Admin: 01/10/19 22:27 Dose: 8 unit Levothyroxine Sodium (Synthroid -) 75 mcg PO MoTuWeTh@0700 [facility] Last Admin: 01/10/19 06:18 Dose: Not Given Polyethylene Glycol (Miralax (For Daily Use) -) 17 gm PO DAILY [facility] Last Admin: 01/11/19 12:29 Dose: 17 gm Pregabalin (Lyrica -) 50 mg PO [facility] Last Admin: 01/10/19 22:26 Dose: 50 mg Ranitidine HCl (Zantac -) 150 mg PO [facility] Last Admin: 01/10/19 22:26 Dose: 150 mg Rosuvastatin Calcium (Crestor -) 10 mg PO [facility] Last Admin: 01/10/19 22:26 Dose: 10 mg Sodium Chloride ([place] Nasal [place] -) 2 spray NS BID PRN PRN Reason: NASAL CONGESTION Last Admin: 01/08/19 13:47 Dose: 2 spray Tamsulosin HCl (Flomax -) 0.4 mg PO [facility] Last Admin: 01/10/19 22:26 Dose: 0.4 mg - Objective Vital Signs: Vital Signs Temperature 97.3 F L 01/11/19 09:00 Pulse Rate 70 01/11/19 09:00 Respiratory Rate 20 01/11/19 09:00 Blood Pressure 131/97 01/11/19 09:00 O2 Sat by Pulse Oximetry (%) 98 01/10/19 20:52 Constitutional: Yes: No Distress, Calm Cardiovascular: Yes: Regular Rate and Rhythm, S1, S2 Respiratory: Yes: Regular, CTA Bilaterally, Rales Gastrointestinal: Yes: Normal Bowel Sounds, Soft. No: Tenderness Edema: No Neurological: Yes: Alert Labs: CBC, BMP 01/11/19 05:00 01/11/19 05:00 INR, PTT INR 1.17 (0.83-1.09) H 01/07/19 00:25 Problem List - Problems (1) ASHLYN (acute kidney injury) Code(s): N17.9 - ACUTE KIDNEY FAILURE, UNSPECIFIED (2) Anemia Code(s): D64.9 - ANEMIA, UNSPECIFIED Qualifiers: (3) Thrombocytopenia Code(s): D69.6 - THROMBOCYTOPENIA, UNSPECIFIED (4) Hyperkalemia Code(s): E87.5 - HYPERKALEMIA (5) Weakness Code(s): R53.1 - WEAKNESS (6) Fall Code(s): W19.XXXA - UNSPECIFIED FALL, INITIAL ENCOUNTER (7) ASHD (arteriosclerotic heart disease) Code(s): I25.10 - ATHSCL HEART DISEASE OF [place] CORONARY ARTERY W/O ANG PCTRS (8) History of implantable cardiac defibrillator (ICD) Code(s): [id number] - (9) CHF (congestive heart failure) Code(s): I50.9 - HEART FAILURE, UNSPECIFIED (10) CKD (chronic kidney disease) Code(s): N18.9 - CHRONIC KIDNEY DISEASE, UNSPECIFIED Qualifiers: Chronic kidney disease stage: stage 3 (moderate) Qualified Code(s): N18.3 - Chronic kidney disease, stage 3 (moderate) (11) Diabetes mellitus Code(s): E11.9 - TYPE 2 DIABETES MELLITUS WITHOUT COMPLICATIONS Qualifiers: Diabetes mellitus type: type 2 Chronic kidney disease stage: stage 2 (mild ) (12) BPH (benign prostatic hyperplasia) Code(s): N40.0 - BENIGN PROSTATIC HYPERPLASIA WITHOUT LOWER URINRY TRACT SYMP (13) COPD (chronic obstructive pulmonary disease) Code(s): J44.9 - CHRONIC OBSTRUCTIVE PULMONARY DISEASE, UNSPECIFIED Qualifiers: COPD type: chronic bronchitis Assessment/Plan s/p PRBC Tx H/H is stable Creatinine is improving Lasix PRN ARB on hold PT f/u; pt thinks is doing good. Pt's is at bedside; she thinks that is too weak to return home. AM labs Case was d/w pt's nurse, MARY
[2019-01-11] MEDS: TAMSULOSIN HCL 0.4 MG CAP PO SCH (21:45)
[2019-01-11] MEDS: PREGABALIN 50 MG CAPSULE PO SCH (21:45)
[2019-01-11] MEDS: ROSUVASTATIN CA 10 MG TABLET (FP) PO SCH (21:45)
[2019-01-11] MEDS: RANITIDINE HCL 150 MG TABLET (FP) PO SCH (21:45)
[2019-01-11] MEDS: INSULIN (LEVEMIR) 100 UNITS/ML UNITS SQ SCH (21:46)
[2019-01-12 07:45] LABS: HEMATOCRIT 25.8 % (35.4-49); HEMOGLOBIN 8.9 GM/dL (11.7-16.9); MCH 34.2 pg (25.7-33.7); MCHC 34.7 g/dl (32.0-35.9); MEAN CELL VOLUME 98.5 fl (80-96); MEAN PLT VOLUME 9.4 fl (7.5-11.1); RBC 2.62 M/mm3 (4.00-5.60); RDW 14.3 % (11.9-15.9); WHITE BLOOD COUNT 5.4 K/mm3 (4.0-10.0)
[2019-01-12 08:04] LABS: BLOOD UREA NITROGEN 64.9 mg/dL (7-18); CALCIUM 7.9 mg/dL (8.5-10.1); CREATININE 1.7 mg/dL (0.55-1.3); POTASSIUM 4.4 mmol/L (3.5-5.1)
[2019-01-12] MEDS: FINASTERIDE 5 MG TABLET (FP) PO SCH (09:12)
[2019-01-12] MEDS: CARVEDILOL 3.125 MG TABLET (FP) PO SCH ×2 (09:12→22:20)
[2019-01-12] MEDS: ASPIRIN 81 MG CHEWABLE TABLETS PO SCH (09:12)
[2019-01-12] MEDS: POLYETHYLENE GLYCOL 3350 119 GM BTL PO SCH (09:14)
[2019-01-12 09:17] LABS: PLATELET COUNT 103 K/MM3 (134-434)
[2019-01-12] MEDS: FOLIC ACID 1 MG TABLET (FP) PO SCH (10:38)
--- NOTE | 2019-01-12 11:43 | PN ---
Progress Note, Physician Chief Complaint: OOB to chair eating; feels well but generally weak; at bedside; pt to decide about SNF vs home with PT - pt's prefers [facility] DC d/w staff - Current Medication List Current Medications: Active Medications Acetaminophen (Tylenol -) 650 mg PO Q6H PRN PRN Reason: PAIN 1-3 Albuterol Sulfate (Ventolin 0.083% Nebulizer Soln -) 1 amp NEB Q6H PRN PRN Reason: SHORT OF BREATH/WHEEZING Aspirin (Asa -) 81 mg PO DAILY [facility] Last Admin: 01/12/19 09:12 Dose: 81 mg Carvedilol (Coreg -) 3.125 mg PO BID [facility] Last Admin: 01/12/19 09:12 Dose: 3.125 mg Finasteride (Proscar -) 5 mg PO DAILY [facility] Last Admin: 01/12/19 09:12 Dose: 5 mg Folic Acid (Folic Acid -) 1 mg PO DAILY [facility] Last Admin: 01/11/19 09:05 Dose: 1 mg Insulin Detemir (Levemir Vial) 8 units SQ [facility] Last Admin: 01/11/19 21:46 Dose: 8 unit Levothyroxine Sodium (Synthroid -) 75 mcg PO MoTuWeTh@0700 [facility] Last Admin: 01/10/19 06:18 Dose: Not Given Polyethylene Glycol (Miralax (For Daily Use) -) 17 gm PO DAILY [facility] Last Admin: 01/12/19 09:14 Dose: 17 gm Pregabalin (Lyrica -) 50 mg PO [facility] Last Admin: 01/11/19 21:45 Dose: 50 mg Ranitidine HCl (Zantac -) 150 mg PO [facility] Last Admin: 01/11/19 21:45 Dose: 150 mg Rosuvastatin Calcium (Crestor -) 10 mg PO [facility] Last Admin: 01/11/19 21:45 Dose: 10 mg Sodium Chloride ([place] Nasal [place] -) 2 spray NS BID PRN PRN Reason: NASAL CONGESTION Last Admin: 01/08/19 13:47 Dose: 2 spray Tamsulosin HCl (Flomax -) 0.4 mg PO [facility] Last Admin: 01/11/19 21:45 Dose: 0.4 mg - Objective Vital Signs: Vital Signs Temperature 97.9 F 01/12/19 06:24 Pulse Rate 66 01/12/19 06:24 Respiratory Rate 16 01/12/19 09:00 Blood Pressure 118/53 L 01/12/19 06:24 O2 Sat by Pulse Oximetry (%) 96 01/12/19 09:00 Constitutional: Yes: No Distress, Calm Eyes: Yes: Conjunctiva Clear HENT: Yes: Atraumatic Neck: Yes: Supple Cardiovascular: Yes: Regular Rate and Rhythm Respiratory: Yes: CTA Bilaterally Gastrointestinal: Yes: Soft. No: Tenderness Genitourinary: No: Hematuria Musculoskeletal: No: Joint Stiffness, Joint Swelling Extremities: No: Cold, Cool, Cyanosis Edema: No Integumentary: No: Rash, Venous Stasis Changes Neurological: Yes: WNL, Alert, Oriented ...Motor Strength: WNL Psychiatric: Yes: WNL, Alert, Oriented. No: Agitated, Suicidal Ideation Labs: CBC, BMP 01/12/19 06:20 01/12/19 06:20 INR, PTT INR 1.17 (0.83-1.09) H 01/07/19 00:25 - ....Imaging Other: Report Reviewed Assessment/Plan 88 yo M with h/o IDDM, HLD, BPH, chronic systolic CHF with BL pleural effusions , CAD, CABG (2009), ICD placement for sustained , PAD, Left transmetatarsal amputation admitted with weakness ad falls. s/p recent tx for UTI Bactrim BID, hematuria intermittently, anemic and hyper K improved; continue current management DC planning d/w pt and SNF vs Home with VNS dvt pfx; fall pfx; d/w pt and staff
--- NOTE | 2019-01-12 12:30 | PN ---
Progress Note, Physician History of Present Illness: Pt seen and examined at bedside. He denies shortness of breath. He has good appetite. - Current Medication List Current Medications: Active Medications Acetaminophen (Tylenol -) 650 mg PO Q6H PRN PRN Reason: PAIN 1-3 Albuterol Sulfate (Ventolin 0.083% Nebulizer Soln -) 1 amp NEB Q6H PRN PRN Reason: SHORT OF BREATH/WHEEZING Aspirin (Asa -) 81 mg PO DAILY [facility] Last Admin: 01/12/19 09:12 Dose: 81 mg Carvedilol (Coreg -) 3.125 mg PO BID [facility] Last Admin: 01/12/19 09:12 Dose: 3.125 mg Finasteride (Proscar -) 5 mg PO DAILY [facility] Last Admin: 01/12/19 09:12 Dose: 5 mg Folic Acid (Folic Acid -) 1 mg PO DAILY [facility] Last Admin: 01/11/19 09:05 Dose: 1 mg Insulin Detemir (Levemir Vial) 8 units SQ [facility] Last Admin: 01/11/19 21:46 Dose: 8 unit Levothyroxine Sodium (Synthroid -) 75 mcg PO MoTuWeTh@0700 [facility] Last Admin: 01/10/19 06:18 Dose: Not Given Polyethylene Glycol (Miralax (For Daily Use) -) 17 gm PO DAILY [facility] Last Admin: 01/12/19 09:14 Dose: 17 gm Pregabalin (Lyrica -) 50 mg PO [facility] Last Admin: 01/11/19 21:45 Dose: 50 mg Ranitidine HCl (Zantac -) 150 mg PO [facility] Last Admin: 01/11/19 21:45 Dose: 150 mg Rosuvastatin Calcium (Crestor -) 10 mg PO [facility] Last Admin: 01/11/19 21:45 Dose: 10 mg Sodium Chloride ([place] Nasal [place] -) 2 spray NS BID PRN PRN Reason: NASAL CONGESTION Last Admin: 01/08/19 13:47 Dose: 2 spray Tamsulosin HCl (Flomax -) 0.4 mg PO [facility] Last Admin: 01/11/19 21:45 Dose: 0.4 mg - Objective Vital Signs: Vital Signs Temperature 97.9 F 01/12/19 06:24 Pulse Rate 66 01/12/19 06:24 Respiratory Rate 16 01/12/19 09:00 Blood Pressure 118/53 L 01/12/19 06:24 O2 Sat by Pulse Oximetry (%) 96 01/12/19 09:00 Constitutional: Yes: Calm Eyes: Yes: Conjunctiva Clear HENT: Yes: Atraumatic Neck: Yes: Supple Cardiovascular: Yes: S1, S2 Respiratory: Yes: On Nasal O2 Gastrointestinal: Yes: Soft Genitourinary: Yes: Incontinence Edema: No Neurological: Yes: Oriented Psychiatric: Yes: Oriented Labs: CBC, BMP 01/12/19 06:20 01/12/19 06:20 INR, PTT INR 1.17 (0.83-1.09) H 01/07/19 00:25 Problem List - Problems (1) CKD (chronic kidney disease) Code(s): N18.9 - CHRONIC KIDNEY DISEASE, UNSPECIFIED (2) ASHLYN (acute kidney injury) Code(s): N17.9 - ACUTE KIDNEY FAILURE, UNSPECIFIED (3) Anemia Code(s): D64.9 - ANEMIA, UNSPECIFIED Qualifiers: Assessment/Plan Current Medications Generic Name Dose Route Start Last Admin Trade Name Freq PRN Reason Stop Dose Admin Acetaminophen 650 mg 01/07/19 08:20 Tylenol - PO Q6H PRN PAIN 1-3 Albuterol Sulfate 1 amp 01/09/19 20:44 Ventolin 0.083% Nebulizer Soln - NEB Q6H PRN SHORT OF BREATH/WHEEZING Aspirin 81 mg 01/07/19 10:00 01/12/19 09:12 Asa - PO 81 mg DAILY [facility] Administration Carvedilol 3.125 mg 01/07/19 10:00 01/12/19 09:12 Coreg - PO 3.125 mg BID [facility] Administration Finasteride 5 mg 01/09/19 10:00 01/12/19 09:12 Proscar - PO 5 mg DAILY [facility] Administration Folic Acid 1 mg 01/07/19 10:00 01/11/19 09:05 Folic Acid - PO 1 mg DAILY [facility] Administration Insulin Detemir 8 units 01/09/19 08:17 01/11/19 21:46 Levemir Vial SQ 8 unit HS [facility] Administration Levothyroxine Sodium 75 mcg 01/07/19 11:00 01/10/19 06:18 Synthroid - PO Not Given MoTuWeTh@0700 [facility] Polyethylene Glycol 17 gm 01/11/19 12:00 01/12/19 09:14 Miralax (For Daily Use) - PO 17 gm DAILY [facility] Administration Pregabalin 50 mg 01/07/19 22:00 01/11/19 21:45 Lyrica - PO 50 mg HS [facility] Administration Ranitidine HCl 150 mg 01/07/19 22:00 01/11/19 21:45 Zantac - PO 150 mg HS [facility] Administration Rosuvastatin Calcium 10 mg 01/07/19 22:00 01/11/19 21:45 Crestor - PO 10 mg HS [facility] Administration Sodium Chloride 2 spray 01/08/19 10:48 01/08/19 13:47 [place] Nasal [place] - NS 2 spray BID PRN Administration NASAL CONGESTION Tamsulosin HCl 0.4 mg 01/07/19 22:00 01/11/19 21:45 Flomax - PO 0.4 mg HS [facility] Administration Laboratory Tests 01/12/19 06:20 Potassium 4.4 Creatinine 1.7 H #ASHLYN improving #CKD #Hyperkalemia #CAD #Cardiomyopathy #Right pleural effusion #Falls/weakness Plan - renal function is improving - 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
--- NOTE | 2019-01-12 15:22 | PN ---
Progress Note, Physician History of Present Illness: Eating dinner in bed. No complaints, denies dyspnea. - Current Medication List Current Medications: Active Medications Acetaminophen (Tylenol -) 650 mg PO Q6H PRN PRN Reason: PAIN 1-3 Albuterol Sulfate (Ventolin 0.083% Nebulizer Soln -) 1 amp NEB Q6H PRN PRN Reason: SHORT OF BREATH/WHEEZING Aspirin (Asa -) 81 mg PO DAILY [facility] Last Admin: 01/12/19 09:12 Dose: 81 mg Carvedilol (Coreg -) 3.125 mg PO BID [facility] Last Admin: 01/12/19 09:12 Dose: 3.125 mg Finasteride (Proscar -) 5 mg PO DAILY [facility] Last Admin: 01/12/19 09:12 Dose: 5 mg Folic Acid (Folic Acid -) 1 mg PO DAILY [facility] Last Admin: 01/11/19 09:05 Dose: 1 mg Insulin Detemir (Levemir Vial) 8 units SQ [facility] Last Admin: 01/11/19 21:46 Dose: 8 unit Levothyroxine Sodium (Synthroid -) 75 mcg PO MoTuWeTh@0700 [facility] Last Admin: 01/10/19 06:18 Dose: Not Given Polyethylene Glycol (Miralax (For Daily Use) -) 17 gm PO DAILY [facility] Last Admin: 01/12/19 09:14 Dose: 17 gm Pregabalin (Lyrica -) 50 mg PO [facility] Last Admin: 01/11/19 21:45 Dose: 50 mg Ranitidine HCl (Zantac -) 150 mg PO [facility] Last Admin: 01/11/19 21:45 Dose: 150 mg Rosuvastatin Calcium (Crestor -) 10 mg PO [facility] Last Admin: 01/11/19 21:45 Dose: 10 mg Sodium Chloride ([place] Nasal [place] -) 2 spray NS BID PRN PRN Reason: NASAL CONGESTION Last Admin: 01/08/19 13:47 Dose: 2 spray Tamsulosin HCl (Flomax -) 0.4 mg PO [facility] Last Admin: 01/11/19 21:45 Dose: 0.4 mg - Objective Vital Signs: Vital Signs Temperature 98.0 F 01/12/19 13:10 Pulse Rate 67 01/12/19 13:10 Respiratory Rate 20 01/12/19 13:10 Blood Pressure 114/50 L 01/12/19 13:10 O2 Sat by Pulse Oximetry (%) 96 01/12/19 09:00 Constitutional: Yes: No Distress, Calm, Thin Neck: Yes: Supple Cardiovascular: Yes: Regular Rate and Rhythm Respiratory: Yes: Regular, CTA Bilaterally, On Nasal O2 Gastrointestinal: Yes: Normal Bowel Sounds, Soft Edema: No Labs: CBC, BMP 01/12/19 06:20 01/12/19 06:20 INR, PTT INR 1.17 (0.83-1.09) H 01/07/19 00:25 - ....Imaging Chest X-ray: Report Reviewed (Rt effusion) Problem List - Problems (1) ASHLYN (acute kidney injury) Code(s): N17.9 - ACUTE KIDNEY FAILURE, UNSPECIFIED (2) Anemia Code(s): D64.9 - ANEMIA, UNSPECIFIED Qualifiers: (3) Hyperkalemia Code(s): E87.5 - HYPERKALEMIA (4) Weakness Code(s): R53.1 - WEAKNESS (5) ASHD (arteriosclerotic heart disease) Code(s): I25.10 - ATHSCL HEART DISEASE OF [place]' CORONARY ARTERY W/O ANG PCTRS (6) CAD (coronary artery disease) Code(s): I25.10 - ATHSCL HEART DISEASE OF [place] DEE-NI' CORONARY ARTERY W/O ANG PCTRS Qualifiers: Coronary Disease-Associated Artery/Lesion type: [place] artery [place] vs. transplanted heart: [place] heart Associated angina: without angina Qualified Code(s): I25.10 - Atherosclerotic heart disease of [place] coronary artery without angina pectoris (7) CHF (congestive heart failure) Code(s): I50.9 - HEART FAILURE, UNSPECIFIED (8) CKD (chronic kidney disease) Code(s): N18.9 - CHRONIC KIDNEY DISEASE, UNSPECIFIED Qualifiers: Chronic kidney disease stage: stage 3 (moderate) Qualified Code(s): N18.3 - Chronic kidney disease, stage 3 (moderate) (9) Chronic systolic heart failure Code(s): I50.22 - CHRONIC SYSTOLIC (CONGESTIVE) HEART FAILURE (10) Diabetes mellitus Code(s): E11.9 - TYPE 2 DIABETES MELLITUS WITHOUT COMPLICATIONS Qualifiers: Diabetes mellitus type: type 2 Chronic kidney disease stage: stage 2 (mild ) (11) HTN (hypertension) Code(s): I10 - ESSENTIAL (PRIMARY) HYPERTENSION Qualifiers: Hypertension type: essential hypertension Qualified Code(s): I10 - Essential (primary) hypertension (12) History of implantable cardiac defibrillator (ICD) Code(s): [id number] - (13) Hx of CABG Code(s): Z95.1 - PRESENCE OF AORTOCORONARY BYPASS GRAFT (14) Hypercholesterolemia Code(s): E78.0 - PURE HYPERCHOLESTEROLEMIA * DO NOT USE * (15) Hypothyroidism Code(s): E03.9 - HYPOTHYROIDISM, UNSPECIFIED Qualifiers: Hypothyroidism type: unspecified Qualified Code(s): E03.9 - Hypothyroidism , unspecified (16) ICD (implantable cardioverter-defibrillator) in place Code(s): Z95.810 - PRESENCE OF AUTOMATIC (IMPLANTABLE) CARDIAC DEFIBRILLATOR (17) Peripheral arterial disease Code(s): I73.9 - PERIPHERAL VASCULAR DISEASE, UNSPECIFIED (18) Systolic dysfunction with acute on chronic heart failure Code(s): I50.23 - ACUTE ON CHRONIC SYSTOLIC (CONGESTIVE) HEART FAILURE (19) Pleural effusion Code(s): J90 - PLEURAL EFFUSION, NOT ELSEWHERE CLASSIFIED Assessment/Plan 07/21/2016 Echo: Moderate dilated with mild-mod decreased LV fxn, pacer RV, mild LAE, mod MR, mild TR 01/08/[address]: Mod bilateral effusions R>L 08/01/[address]: Mod bilateral effusions R>L, small pericardial effusions 08/02/2018 Echo: Mild-mod decreased LVEF 40-45%, normal RV size and fxn, mild LAE, mild MR, tr TR, [place], [place]. No pericardial effusion 1. Acute on CKD with hyperkalemia and hyponatremia improved 2. Systolic/diastolic LV dysfunction with clinical class I-II NYHA classification LV failure, right effusion 3. CAD post CABG, angina pectoris 4. HTN 5. NIDDM 6. Hypercholesterolemia 7. 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 Carotid stenosis 9. Hypothyroidism 10. PAD post [employer] and amputation (TMA) 11. Anemia post transfusion 12. BPH with hematuria cleared PLAN: 1. Resume diuresis, but hold Cozaar as renal fxn at baseline 2. Continue ASA 81 qd, carvedilol 3.125 bid as hemodynamics permit, Crestor 10 qhs 3. Transfuse pRBC to maintain Hgb>8.0 4. PT for gait training, continue flomax and proscar, d/c pulliam and voiding trial
[2019-01-12] MEDS ORDERED: FUROSEMIDE 40 MG/4 ML INJECTABLE VIAL IVPUSH ONE (17:24)
[2019-01-12] MEDS: RANITIDINE HCL 150 MG TABLET (FP) PO SCH (22:20)
[2019-01-12] MEDS: ROSUVASTATIN CA 10 MG TABLET (FP) PO SCH (22:20)
[2019-01-12] MEDS: TAMSULOSIN HCL 0.4 MG CAP PO SCH (22:20)
[2019-01-12] MEDS: INSULIN (LEVEMIR) 100 UNITS/ML UNITS SQ SCH (22:20)
[2019-01-12] MEDS: PREGABALIN 50 MG CAPSULE PO SCH (22:20)
[2019-01-12] MEDS: ALBUTEROL SO4 0.083% IH SOL 2.5 MG/3 ML VIAL.NEB. NEB PRN (22:39)
[2019-01-12] MEDS ORDERED: INSULIN (LEVEMIR) 100 UNITS/ML UNITS SQ ONE (23:54)
[2019-01-13 07:36] LABS: BLOOD UREA NITROGEN 66.6 mg/dL (7-18); CALCIUM 8.2 mg/dL (8.5-10.1); CREATININE 1.7 mg/dL (0.55-1.3); POTASSIUM 4.1 mmol/L (3.5-5.1)
--- NOTE | 2019-01-13 09:11 | PN ---
Progress Note, Physician Chief Complaint: in bed in good spirits no new c/o gen weak; at bedside; they both agreed for SNF d/w staff has small amnt of epistaxis L nare / site of O2 NC per sife pt had it home too sometimes; to use Nasal spray and see ENT outpt d/w pt and - Current Medication List Current Medications: Active Medications Acetaminophen (Tylenol -) 650 mg PO Q6H PRN PRN Reason: PAIN 1-3 Albuterol Sulfate (Ventolin 0.083% Nebulizer Soln -) 1 amp NEB Q6H PRN PRN Reason: SHORT OF BREATH/WHEEZING Last Admin: 01/12/19 22:39 Dose: 1 amp Aspirin (Asa -) 81 mg PO DAILY [facility] Last Admin: 01/12/19 09:12 Dose: 81 mg Carvedilol (Coreg -) 3.125 mg PO BID [facility] Last Admin: 01/12/19 22:20 Dose: 3.125 mg Finasteride (Proscar -) 5 mg PO DAILY [facility] Last Admin: 01/12/19 09:12 Dose: 5 mg Folic Acid (Folic Acid -) 1 mg PO DAILY [facility] Last Admin: 01/12/19 10:38 Dose: 1 mg Furosemide (Lasix -) 20 mg PO DAILY [facility] Insulin Detemir (Levemir Vial) 8 units SQ [facility] Last Admin: 01/12/19 22:20 Dose: 8 unit Levothyroxine Sodium (Synthroid -) 75 mcg PO MoTuWeTh@0700 [facility] Last Admin: 01/10/19 06:18 Dose: Not Given Polyethylene Glycol (Miralax (For Daily Use) -) 17 gm PO DAILY [facility] Last Admin: 01/12/19 09:14 Dose: 17 gm Pregabalin (Lyrica -) 50 mg PO HS [facility] Last Admin: 01/12/19 22:20 Dose: 50 mg Ranitidine HCl (Zantac -) 150 mg PO [facility] Last Admin: 01/12/19 22:20 Dose: 150 mg Rosuvastatin Calcium (Crestor -) 10 mg PO HS [facility] Last Admin: 01/12/19 22:20 Dose: 10 mg Sodium Chloride ([place] Nasal [place] -) 2 spray NS BID PRN PRN Reason: NASAL CONGESTION Last Admin: 01/08/19 13:47 Dose: 2 spray Tamsulosin HCl (Flomax -) 0.4 mg PO HS [facility] Last Admin: 01/12/19 22:20 Dose: 0.4 mg - Objective Vital Signs: Vital Signs Temperature 98.1 F 01/13/19 06:13 Pulse Rate 63 01/13/19 06:13 Respiratory Rate 18 01/13/19 08:15 Blood Pressure 106/45 L 01/13/19 06:13 O2 Sat by Pulse Oximetry (%) 97 01/13/19 08:15 Constitutional: Yes: No Distress, Calm Eyes: Yes: Conjunctiva Clear HENT: Yes: Atraumatic Neck: Yes: Supple Cardiovascular: Yes: Regular Rate and Rhythm Respiratory: Yes: CTA Bilaterally Gastrointestinal: Yes: Soft. No: Tenderness Genitourinary: No: CVA Tenderness - Left, CVA Tenderness - Right, Hematuria Musculoskeletal: No: Joint Stiffness, Joint Swelling Extremities: No: Cold, Cool, Cyanosis Edema: No Integumentary: No: Rash Neurological: Yes: WNL, Alert, Oriented ...Motor Strength: WNL Psychiatric: Yes: WNL, Alert, Oriented. No: Agitated, Suicidal Ideation Labs: CBC, BMP 01/12/19 06:20 01/13/19 06:10 INR, PTT INR 1.17 (0.83-1.09) H 01/07/19 00:25 - ....Imaging Other: Report Reviewed Assessment/Plan 88 yo M with h/o IDDM, HLD, BPH, chronic systolic CHF with BL pleural effusions , CAD, CABG (2009), ICD placement for sustained , PAD, Left transmetatarsal amputation admitted with weakness ad falls. s/p recent tx for UTI Bactrim BID, hematuria intermittently, anemic and hyper K improved; continue current management DC planning d/w pt and they agreed to go to SNF f/u as advised dvt pfx; fall pfx; d/w pt and staff
[2019-01-13] MEDS: CARVEDILOL 3.125 MG TABLET (FP) PO SCH ×2 (09:27→22:18)
[2019-01-13] MEDS: FUROSEMIDE 20 MG TABLET (FP) PO SCH (09:27)
[2019-01-13] MEDS: POLYETHYLENE GLYCOL 3350 119 GM BTL PO SCH (09:27)
[2019-01-13] MEDS: FINASTERIDE 5 MG TABLET (FP) PO SCH (09:27)
[2019-01-13] MEDS: FOLIC ACID 1 MG TABLET (FP) PO SCH (09:27)
[2019-01-13] MEDS: ASPIRIN 81 MG CHEWABLE TABLETS PO SCH (09:27)
--- NOTE | 2019-01-13 14:15 | PN ---
Progress Note, Physician History of Present Illness: Pt seen and examined at bedside. He is awake and alert. He denies shortness of breath. - Current Medication List Current Medications: Active Medications Acetaminophen (Tylenol -) 650 mg PO Q6H PRN PRN Reason: PAIN 1-3 Albuterol Sulfate (Ventolin 0.083% Nebulizer Soln -) 1 amp NEB Q6H PRN PRN Reason: SHORT OF BREATH/WHEEZING Last Admin: 01/12/19 22:39 Dose: 1 amp Aspirin (Asa -) 81 mg PO DAILY [facility] Last Admin: 01/13/19 09:27 Dose: 81 mg Carvedilol (Coreg -) 3.125 mg PO BID [facility] Last Admin: 01/13/19 09:27 Dose: 3.125 mg Finasteride (Proscar -) 5 mg PO DAILY [facility] Last Admin: 01/13/19 09:27 Dose: 5 mg Folic Acid (Folic Acid -) 1 mg PO DAILY [facility] Last Admin: 01/13/19 09:27 Dose: 1 mg Furosemide (Lasix -) 20 mg PO DAILY [facility] Last Admin: 01/13/19 09:27 Dose: 20 mg Insulin Detemir (Levemir Vial) 8 units SQ HS [facility] Last Admin: 01/12/19 22:20 Dose: 8 unit Levothyroxine Sodium (Synthroid -) 75 mcg PO MoTuWeTh@0700 [facility] Last Admin: 01/10/19 06:18 Dose: Not Given Polyethylene Glycol (Miralax (For Daily Use) -) 17 gm PO DAILY [facility] Last Admin: 01/13/19 09:27 Dose: 17 gm Pregabalin (Lyrica -) 50 mg PO HS [facility] Last Admin: 01/12/19 22:20 Dose: 50 mg Ranitidine HCl (Zantac -) 150 mg PO HS [facility] Last Admin: 01/12/19 22:20 Dose: 150 mg Rosuvastatin Calcium (Crestor -) 10 mg PO HS [facility] Last Admin: 01/12/19 22:20 Dose: 10 mg Sodium Chloride ([place] Nasal [place] -) 2 spray NS BID PRN PRN Reason: NASAL CONGESTION Last Admin: 01/08/19 13:47 Dose: 2 spray Tamsulosin HCl (Flomax -) 0.4 mg PO HS [facility] Last Admin: 01/12/19 22:20 Dose: 0.4 mg - Objective Vital Signs: Vital Signs Temperature 98.1 F 01/13/19 06:13 Pulse Rate 63 01/13/19 06:13 Respiratory Rate 18 01/13/19 08:15 Blood Pressure 106/45 L 01/13/19 06:13 O2 Sat by Pulse Oximetry (%) 97 01/13/19 08:15 Constitutional: Yes: Calm Eyes: Yes: Conjunctiva Clear HENT: Yes: Atraumatic Neck: Yes: Supple Cardiovascular: Yes: S1, S2 Respiratory: Yes: CTA Bilaterally, On Nasal O2 Genitourinary: Yes: WNL Edema: No Neurological: Yes: Oriented Psychiatric: Yes: Oriented Labs: CBC, BMP 01/12/19 06:20 01/13/19 06:10 INR, PTT INR 1.17 (0.83-1.09) H 01/07/19 00:25 Problem List - Problems (1) CKD (chronic kidney disease) Code(s): N18.9 - CHRONIC KIDNEY DISEASE, UNSPECIFIED (2) ASHLYN (acute kidney injury) Code(s): N17.9 - ACUTE KIDNEY FAILURE, UNSPECIFIED (3) Anemia Code(s): D64.9 - ANEMIA, UNSPECIFIED Qualifiers: Assessment/Plan Current Medications Generic Name Dose Route Start Last Admin Trade Name Freq PRN Reason Stop Dose Admin Acetaminophen 650 mg 01/07/19 08:20 Tylenol - PO Q6H PRN PAIN 1-3 Albuterol Sulfate 1 amp 01/09/19 20:44 01/12/19 22:39 Ventolin 0.083% Nebulizer Soln - NEB 1 amp Q6H PRN Administration SHORT OF BREATH/WHEEZING Aspirin 81 mg 01/07/19 10:00 01/13/19 09:27 Asa - PO 81 mg DAILY [facility] Administration Carvedilol 3.125 mg 01/07/19 10:00 01/13/19 09:27 Coreg - PO 3.125 mg BID [facility] Administration Finasteride 5 mg 01/09/19 10:00 01/13/19 09:27 Proscar - PO 5 mg DAILY [facility] Administration Folic Acid 1 mg 01/07/19 10:00 01/13/19 09:27 Folic Acid - PO 1 mg DAILY [facility] Administration Furosemide 20 mg 01/13/19 10:00 01/13/19 09:27 Lasix - PO 20 mg DAILY [facility] Administration Insulin Detemir 8 units 01/09/19 08:17 01/12/19 22:20 Levemir Vial SQ 8 unit HS [facility] Administration Levothyroxine Sodium 75 mcg 01/07/19 11:00 01/10/19 06:18 Synthroid - PO Not Given MoTuWeTh@0700 [facility] Polyethylene Glycol 17 gm 01/11/19 12:00 01/13/19 09:27 Miralax (For Daily Use) - PO 17 gm DAILY [facility] Administration Pregabalin 50 mg 01/07/19 22:00 01/12/19 22:20 Lyrica - PO 50 mg HS [facility] Administration Ranitidine HCl 150 mg 01/07/19 22:00 01/12/19 22:20 Zantac - PO 150 mg HS [facility] Administration Rosuvastatin Calcium 10 mg 01/07/19 22:00 01/12/19 22:20 Crestor - PO 10 mg HS [facility] Administration Sodium Chloride 2 spray 01/08/19 10:48 01/08/19 13:47 [place] Nasal [place] - NS 2 spray BID PRN Administration NASAL CONGESTION Tamsulosin HCl 0.4 mg 01/07/19 22:00 01/12/19 22:20 Flomax - PO 0.4 mg HS [facility] Administration #ASHLYN improving #CKD #Hyperkalemia #CAD #Cardiomyopathy #Right pleural effusion #Falls/weakness Plan - cont to monitor renal function - losartan (12.5mg) on hold for now as bp is low - cardio input appreciated - monitor bp - no acute change in management Dr Rock
[2019-01-13] MEDS: ALBUTEROL SO4 0.083% IH SOL 2.5 MG/3 ML VIAL.NEB. NEB PRN (20:15)
[2019-01-13] MEDS: ROSUVASTATIN CA 10 MG TABLET (FP) PO SCH (22:18)
[2019-01-13] MEDS: PREGABALIN 50 MG CAPSULE PO SCH (22:18)
[2019-01-13] MEDS: TAMSULOSIN HCL 0.4 MG CAP PO SCH (22:18)
[2019-01-13] MEDS: RANITIDINE HCL 150 MG TABLET (FP) PO SCH (22:18)
[2019-01-13] MEDS: INSULIN (LEVEMIR) 100 UNITS/ML UNITS SQ SCH (22:18)
[2019-01-14] MEDS: LEVOTHYROXINE NA 75 MCG TABLET (FP) PO SCH (05:59)
[2019-01-14] MEDS ORDERED: INSULIN SLIDING SCALE (NOVOLOG) 1 VIAL SQ ONE (07:05)
[2019-01-14] MEDS ORDERED: INSULIN (LEVEMIR) 100 UNITS/ML UNITS SQ ONE (07:05)
[2019-01-14] MEDS: FINASTERIDE 5 MG TABLET (FP) PO SCH (09:30)
[2019-01-14] MEDS: ASPIRIN 81 MG CHEWABLE TABLETS PO SCH (09:30)
[2019-01-14] MEDS: FOLIC ACID 1 MG TABLET (FP) PO SCH (09:30)
[2019-01-14] MEDS: FUROSEMIDE 20 MG TABLET (FP) PO SCH (09:31)
[2019-01-14] MEDS: POLYETHYLENE GLYCOL 3350 119 GM BTL PO SCH (09:31)
[2019-01-14] MEDS: CARVEDILOL 3.125 MG TABLET (FP) PO SCH (09:31)
--- NOTE | 2019-01-14 10:57 | DS ---
Physical Examination Vital Signs: Vital Signs Temperature 97.9 F 01/14/19 05:51 Pulse Rate 63 01/14/19 05:51 Respiratory Rate 18 01/14/19 08:31 Blood Pressure 108/52 L 01/14/19 05:51 O2 Sat by Pulse Oximetry (%) 98 01/14/19 08:31 Findings/Remarks: in bed awake NAD VSS no new c/o walked with ehlp but is generally weak; awaiting approval for SNF d/w CM and pt Constitutional: Yes: No Distress, Calm Eyes: Yes: Conjunctiva Clear HENT: Yes: Atraumatic Neck: Yes: Supple Cardiovascular: Yes: Regular Rate and Rhythm Respiratory: Yes: CTA Bilaterally Gastrointestinal: Yes: Soft. No: Tenderness Renal/: No: CVA Tenderness - Left, CVA Tenderness - Right Musculoskeletal: No: Joint Stiffness, Joint Swelling Extremities: No: Cold, Cool, Cyanosis Edema: No Integumentary: No: Rash, Venous Stasis Changes Neurological: Yes: WNL, Alert, Oriented ...Motor Strength: WNL Psychiatric: Yes: WNL, Alert, Oriented. No: Agitated, Suicidal Ideation Labs: CBC, BMP 01/12/19 06:20 01/13/19 06:10 Discharge Summary Reason For Visit: ANEMIA/CHRONIC KIDNEY DISEASE/WEAKNESS Current Active Problems ASHLYN (acute kidney injury) (Acute) Anemia (Acute) BPH (benign prostatic hyperplasia) (Acute) CKD (chronic kidney disease) (Acute) Fall (Acute) Hyperkalemia (Acute) Thrombocytopenia (Acute) Weakness (Acute) Procedures: Principal: 88 YOM ASHD PVD CRF COPD anemia partial foot amputation BPH admitted with ARF dehydration HyperK after UTI, also SOB, fell at home, generally weak. Other Procedures: received IVF; O2; seen by renal, cardiology and pulmonary;. medications adjusted; improved;. developed low PLT after sq heparin and borderline + heparin induced anti-PLT antibodies, so heparin was held, seen by heme;. had small L nostril bleed after using O2 NC - nasal sprays ordered and ENT f/u outpt; Hospital Course: improved with above but remained generally weak, needs PT rehab; to f/u as advised. 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 Referrals: Manas Stephens MD [Staff Physician] - Darian Cortez MD., MD [Staff Physician] - Oscar Madrid MD [Staff Physician] - Fransisco Garcia MD [Staff Physician] - Loyd Small MD [Staff Physician] - Latanya Kirk MD [Staff Physician] - Tanner Mckenna MD [Staff Physician] - [facility]position[facility] - Home Medications Comprehensive Discharge Medication List: Ambulatory Orders Ascorbate Calcium [Vitamin C] 500 mg PO DAILY 01/20/14 Aspirin [ASA -] 81 mg PO DAILY 01/20/14 Carvedilol 3.125 mg PO BID 01/20/14 Folic Acid - 1 mg PO DAILY 01/20/14 Pregabalin [Lyrica -] 50 mg PO HS 01/20/14 Ranitidine HCl [Zantac] 150 mg PO HS 01/20/14 Tamsulosin HCl [Flomax -] 0.4 mg PO HS 01/20/14 Levothyroxine [Synthroid -] 75 mcg PO MOTUWETH 07/21/16 Ergocalciferol (Vitamin D2) [Vitamin D2] 2,000 unit PO DAILY 06/09/17 Furosemide [Lasix -] 20 mg PO DAILY 06/09/17 Insulin Glargine,Hum.rec.anlog [Lantus (10mL VIAL) -] 10 units SQ HS 06/09/17 Multivit-Min/FA/Lycopen/Lutein [Centrum Silver Tablet] 1 tab PO DAILY 06/09/17 Rosuvastatin Calcium 10 mg PO HS 06/09/17 Acetaminophen [Tylenol .Regular Strength -] 650 mg PO Q6H PRN tablet 08/07/18 Albuterol 0.083% Nebulizer [place] [Ventolin 0.083% Nebulizer Soln -] 1 amp NEB Q6H PRN amp 01/13/19 Finasteride [Proscar -] 5 mg PO DAILY tablet 01/13/19 Polyethylene Glycol 3350 [Miralax 119 gm Btl -] 17 gm PO DAILY bottle 06/30/19 Sodium Chloride Nasal [place] [[place] Nasal [place] -] 2 spray NS BID PRN spray 01/13/19
[2019-01-14 14:38] VITALS: BP 158/53; PULSE 68; TEMP 97.6
--- NOTE | 2019-01-14 16:00 | PN ---
Progress Note (short form) - Note Progress Note: Renal follow up for ASHLYN Pt seen and examined at the bedside no acute complaints voiding without pulliam no sob, cp, abd pain, fever or chills appetite is good Vital Signs Temperature 97.6 F 01/14/19 14:37 Pulse Rate 68 01/14/19 14:37 Respiratory Rate 16 01/14/19 14:37 Blood Pressure 158/53 L 01/14/19 14:37 O2 Sat by Pulse Oximetry (%) 96 01/14/19 09:35 Intake & Output 01/11/19 01/12/19 01/13/19 01/14/19 23:59 23:59 23:59 23:59 Intake Total 950 300 200 770 Output Total 525 Balance 425 300 200 770 NAD no JVD RRR Dec BS, no overt rales soft NT no LE edema CBC, BMP 01/12/19 06:20 01/13/19 06:10 Current Medications Acetaminophen (Tylenol -) 650 mg PO Q6H PRN PRN Reason: PAIN 1-3 Albuterol Sulfate (Ventolin 0.083% Nebulizer Soln -) 1 amp NEB Q6H PRN PRN Reason: SHORT OF BREATH/WHEEZING Last Admin: 01/13/19 20:15 Dose: 1 amp Aspirin (Asa -) 81 mg PO DAILY [facility] Last Admin: 01/14/19 09:30 Dose: 81 mg Carvedilol (Coreg -) 3.125 mg PO BID [facility] Last Admin: 01/14/19 09:31 Dose: 3.125 mg Finasteride (Proscar -) 5 mg PO DAILY [facility] Last Admin: 01/14/19 09:30 Dose: 5 mg Folic Acid (Folic Acid -) 1 mg PO DAILY [facility] Last Admin: 01/14/19 09:30 Dose: 1 mg Furosemide (Lasix -) 20 mg PO DAILY [facility] Last Admin: 01/14/19 09:31 Dose: 20 mg Insulin Detemir (Levemir Vial) 8 units SQ HS [facility] Last Admin: 01/13/19 22:18 Dose: 8 unit Levothyroxine Sodium (Synthroid -) 75 mcg PO [id number] [facility] Last Admin: 01/14/19 05:59 Dose: 75 mcg Polyethylene Glycol (Miralax (For Daily Use) -) 17 gm PO DAILY [facility] Last Admin: 01/14/19 09:31 Dose: 17 gm Pregabalin (Lyrica -) 50 mg PO [facility] Last Admin: 01/13/19 22:18 Dose: 50 mg Ranitidine HCl (Zantac -) 150 mg PO HS [facility] Last Admin: 01/13/19 22:18 Dose: 150 mg Rosuvastatin Calcium (Crestor -) 10 mg PO HS [facility] Last Admin: 01/13/19 22:18 Dose: 10 mg Sodium Chloride ([place] -) 2 spray NS BID PRN PRN Reason: NASAL CONGESTION Last Admin: 01/08/19 13:47 Dose: 2 spray Tamsulosin HCl (Flomax -) 0.4 mg PO [facility] Last Admin: 01/13/19 22:18 Dose: 0.4 mg 88 year old gentleman wtih hx of CAD, CABG, PIC, LV dysfunction, PPM, Hypertension, CKD, Carotid stenosis, BPH with urinary retention who presented from home with weakness and falls and found to have hyperkalemia and ASHLYN. #ASHLYN on CKD suspect due to urinary retention +/- Bactrium related injury #CKD #Hyperkalemia #CAD #Cardiomyopathy #Right pleural effusion #Falls/weakness Renal function now improved to baseline K is WNL pt is voiding w/o catheter can resume low dose losartan as an outpatient with close monitoring of renal function and potassium continue flomax and proscar stable for discharge with outpatient follow up Thank you Oscar Madrid DO
--- NOTE | 2019-01-16 17:31 | PATH ---
Surgical Pathology Report Patient Name: CHASTITY LAUGHLIN SR Med. Rec. #: [id number] /Age/Gender: 1930 (Age: 88) / M Account: [id number] Location: [facility] PEDS/ADOL Taken: 01/12/2019 Received: 01/14/2019 Reported: 01/16/2019 Physicians: Jose Manuel Prabhakar M.D. Specimen(s) Received PERIPHERAL BLOOD Clinical History Anemia, thrombocytopenia Final Diagnosis COMPREHENSIVE FLOW CYTOMETRY performed and interpreted at [facility] [place] [place] ([id number]) INTERPRETATION: In this sample analyze, there is no evidence of B or T-cell proliferative disorders or increased blasts. MYELODYSPLASIA FISH PANEL performed and interpreted at [facility] [place] [place] shows the following: INTERPRETATION: No evidence of deletion 5q or monosomy 5 is present. No evidence of deletion 7q or monosomy 7 is present. No evidence of trisomy 8 (+8) is present. No evidence of deletion 13q14.2 is present. No evidence of rearrangement of 11q23. No evidence of a deletion of the p53 (17p13) locus. No evidence of deletion 20q12 is present. See [facility] report ([id number] and [id number]) for additional details. Electronically Signed Lilo Chapa M.D. Gross Description Received are 2 green top tubes of blood which are sent to [facility]. /01/14/2019 saudi01/14/2019
== END 2019-01-14 18:22 | DRG 683 ==
LOC: JER 23:16 → JERBED 01-07 02:25 → J4S 01-07 23:57
PROVIDERS: ADMIT Internal Medicine; ATTEND Internal Medicine
DX: N17.9 Acute kidney failure, unspecified (principal); I50.22 Chronic systolic (congestive) heart failure; I13.0 Hypertensive heart and chronic kidney disease with heart failure and stage 1 through stage 4 chronic kidney disease, or unspecified chronic kidney disease; E87.1 Hypo-osmolality and hyponatremia; I42.9 Cardiomyopathy, unspecified; N40.0 Benign prostatic hyperplasia without lower urinary tract symptoms; I25.10 Atherosclerotic heart disease of native coronary artery without angina pectoris; Z95.1 Presence of aortocoronary bypass graft; E78.5 Hyperlipidemia, unspecified; E11.51 Type 2 diabetes mellitus with diabetic peripheral angiopathy without gangrene; E87.5 Hyperkalemia; Z95.810 Presence of automatic (implantable) cardiac defibrillator; Z79.4 Long term (current) use of insulin; E11.22 Type 2 diabetes mellitus with diabetic chronic kidney disease; N18.9 Chronic kidney disease, unspecified; N18.3 Chronic kidney disease, stage 3 (moderate); E03.9 Hypothyroidism, unspecified; D64.9 Anemia, unspecified; Z89.422 Acquired absence of other left toe(s); D69.6 Thrombocytopenia, unspecified; W19.XXXA Unspecified fall, initial encounter; Y93.89 Activity, other specified; Y92.098 Other place in other non-institutional residence as the place of occurrence of the external cause; Y99.8 Other external cause status; E86.0 Dehydration
CPT/HCPCS: 36415; 36430; 36511; 70450-TC; 71045-TC-FY; 71250-TC; 76700-TC; 76775-TC; 76856-TC; 80048; 80053; 81003; 82272; 82550; 82553; 82565; 82607; 82728; 82747; 82784; 82962; 83540; 83550; 83735; 83880; 84100; 84155; 84156; 84165; 84300; 84443; 84466; 84484; 84540; 85014; 85025; 85027; 85610; 85651; 86022; 86850; 86900; 86901; 86922; 87086; 87205; 88300-TC; 93005; 93010; 94640; 94660; 97116-GP; 97161-GP; 99284-25; J1644; P9038; P9058

== ENCOUNTER 2019-02-21 17:04 | Inpatient (IN) | payer OTHER, MEDICARE ==
[2019-02-21 17:28] VITALS: BMI 21.4
[2019-02-21] MEDS ORDERED: METOCLOPRAMIDE HCL INJECTION 10 MG/2 ML VIAL IVPUSH ONE (17:51)
--- NOTE | 2019-02-21 18:16 | PDOC ---
History of Present Illness - General Chief Complaint: Weakness Stated Complaint: SWELLING Time Seen by Provider: 02/21/19 17:30 - History of Present Illness Initial Comments: 02/21/19 18:23 88M with h/o IDDM, HLD, BPH, chronic systolic CHF with BL pleural effusions, CAD , CABG (2009), ICD placement for sustained , PAD, Left transmetatarsal amputation who presents with weakness and bilateral pitting edema of the legs. The weakness presents with increasing fatigue using the walker with PT for the past 7 days. The swelling of the legs was noticed by the patient's 3 days ago. Also complaining of intermittent chest pain The patient had a recent ICU admission for hyperkalemia and hematuria. Patient is now comfortable, denies any symptoms. Past History - Past Medical History Allergies/Adverse Reactions: Allergies Allergy/AdvReac Type Severity Reaction Status Date / Time No Known Allergies Allergy Verified 01/06/19 23:47 Home Medications: Ambulatory Orders Ascorbate Calcium [Vitamin C] 500 mg PO DAILY 01/20/14 Aspirin [ASA -] 81 mg PO DAILY 01/20/14 Carvedilol 3.125 mg PO BID 01/20/14 Folic Acid - 1 mg PO DAILY 01/20/14 Pregabalin [Lyrica -] 50 mg PO HS 01/20/14 Ranitidine HCl [Zantac] 150 mg PO HS 01/20/14 Tamsulosin HCl [Flomax -] 0.4 mg PO HS 01/20/14 Levothyroxine [Synthroid -] 75 mcg PO DAILY 07/21/16 Ergocalciferol (Vitamin D2) [Vitamin D2] 2,000 unit PO DAILY 06/09/17 Furosemide [Lasix -] 20 mg PO DAILY 06/09/17 Insulin Glargine,Hum.rec.anlog [Lantus (10mL VIAL) -] 10 units SQ HS 06/09/17 Multivit-Min/FA/Lycopen/Lutein [Centrum Silver Tablet] 1 tab PO DAILY 06/09/17 Rosuvastatin Calcium 10 mg PO HS 06/09/17 Finasteride [Proscar -] 5 mg PO DAILY tablet 01/13/19 Anemia: Yes Asthma: No Cancer: No Cardiac Disorders: Yes (CAD, PVD, CABG, stents) COPD: No CHF: Yes Diabetes: Yes HTN: Yes Hypercholesterolemia: No Kidney Stones: Yes Thyroid Disease: No - Surgical History Abdominal Surgery: (gallbladder removal 2016) Appendectomy: No Cardiac Surgery: Yes (cabg x 3/defibrillator implant) Cholecystectomy: Yes Lung Surgery: No Neurologic Surgery: No Orthopedic Surgery: Yes (TMA L) - Immunization History Td Vaccination: No TDAP Vaccination: No Immunization Up to Date: Yes - Suicide/Smoking/Psychosocial Hx Smoking Status: No Smoking History: Former smoker Years of Tobacco Use: 50 Have you smoked in the past 12 months: No Number of Cigarettes Smoked Daily: 30 If you are a former smoker, when did you quit?: 2009 Cigars Per Day: 0 Information on smoking cessation initiated: No Hx Alcohol Use: No Drug/Substance Use Hx: No Substance Use Type: None Hx Substance Use Treatment: No Review of Systems - Review of Systems Able to Perform ROS?: Yes Is the patient limited Japanese proficient: No Constitutional: Yes: See HPI HEENTM: No: Symptoms Reported Respiratory: No: Symptoms reported Cardiac (ROS): No: Symptoms Reported ABD/GI: No: Symptoms Reported : No: Symptoms Reported Musculoskeletal: No: Symptoms Reported Integumentary: Yes: See HPI Neurological: No: Symptoms reported All Other Systems: Reviewed and Negative *Physical Exam - Vital Signs Last Vital Signs Temp Pulse Resp BP Pulse Ox 97.8 F 69 18 132/52 L 95 02/21/19 17:22 02/21/19 17:22 02/21/19 17:22 02/21/19 17:22 02/21/19 17:22 - Physical Exam General Appearance: Yes: Nourished, Appropriately Dressed. No: Apparent Distress HEENT: positive: EOMI, SHERI, Normal ENT Inspection Respiratory/Chest: positive: Lungs Clear, Normal Breath Sounds, Decreased Breath Sounds, Other (Defibrillator felt in upper left chest). negative: Chest Tender, Respiratory Distress Cardiovascular: positive: Regular Rhythm, Regular Rate, S1, S2 Gastrointestinal/Abdominal: positive: Normal Bowel Sounds, Flat, Soft. negative : Tender Extremity: positive: Pedal Edema (3+, bilaterally) Integumentary: positive: Normal Color ED Treatment Course - LABORATORY CBC & Chemistry Diagram: 02/21/19 18:13 02/21/19 18:13 - RADIOLOGY Radiology Studies Ordered: Category Date Time Status CHEST X-RAY PORTABLE* [RAD] Stat Radiology 02/21/19 17:40 Taken Medical Decision Making - Medical Decision Making 02/21/19 18:42 88M with h/o IDDM, HLD, BPH, chronic systolic CHF with BL pleural effusions, CAD , CABG (2009), ICD placement for sustained , PAD, Left transmetatarsal amputation who presents with weakness and bilateral pitting edema of the legs. Acute on chronic CHF vs electrolyte imbalance vs NE vs UTI or combination of the above. Will check the patient labs and urine, will probably treat his pedal edema with lasix. Will treat uti if present. EKG: Ventricular paced rhythm. Patient will probably be admitted due to chest pain and weakness, possible chf 02/21/19 18:45 CXR read: Interval mild bibasal atelectatic changes and small bilateral pleural effusion suspicious for infiltrates. 02/21/19 19:35 Patient has a UTI that we will treat with meropenem due to resistance in the past and multiple recurring UTI Increased bnp compared to last admissionm in the 100,000. Will treat with Lasix and admit the patient for CHF exacerbation and UTI 02/21/19 20:11 Patient admitted for acute on chronic CHF exacerbation, UTI and pneumonia to Dr. Noonan *DC/Admit/Observation/Transfer Diagnosis at time of Disposition: Urinary tract infection, Pneumonia, Acute on chronic systolic CHF (congestive heart failure) - Discharge Dispostion Decision to Admit order: Yes - Referrals Referrals: Ezequiel Noonan MD [Primary Care Provider] - - Patient Instructions - Post Discharge Activity
[2019-02-21] MEDS ORDERED: METOCLOPRAMIDE HCL INJECTION 10 MG/2 ML VIAL ONE (18:24)
[2019-02-21 18:29] LABS: BASO % 0.8 % (0-2.0); EOS % 3.8 % (0-4.5); HEMATOCRIT 27.7 % (35.4-49); HEMOGLOBIN 9.5 GM/dL (11.7-16.9); LYMPH % 7.8 % (8-40); MCH 34.3 pg (25.7-33.7); MCHC 34.4 g/dl (32.0-35.9); MEAN CELL VOLUME 99.9 fl (80-96); MEAN PLT VOLUME 9.6 fl (7.5-11.1); MONO % 10.3 % (3.8-10.2); NEUT % 77.3 % (42.8-82.8); PLATELET COUNT 114 K/MM3 (134-434); RBC 2.77 M/mm3 (4.00-5.60); RDW 14.6 % (11.9-15.9); WHITE BLOOD COUNT 5.9 K/mm3 (4.0-10.0)
--- NOTE | 2019-02-21 18:44 | PDOC ---
Documentation entered by Mickie Calvo SCRIBE, acting as scribe for Kimmie Issa DO. Kimmie Issa DO: This documentation has been prepared by the nellibe, Mickie Calvo SCRIBE, under my direction and personally reviewed by me in its entirety. I confirm that the documentation accurately reflects all work, treatment, procedures, and medical decision making performed by me. Attending Attestation - Resident Resident Name: Anthony Maddox - ED Attending Attestation I have performed the following: I have examined & evaluated the patient, The case was reviewed & discussed with the resident, I agree w/resident's findings & plan, Exceptions are as noted - HPI HPI: 02/21/19 18:59 The patient is an 88-year-old male with a past medical history significant for CHF, HTN, recurrent UTIs secondary, DM, Left transmetatarsal amputation, on home O2 2L presents to the emergency department with weakness and lower extremity edema. Per at the bedside, at baseline the patient was able to ambulate with his walker, however today he was unable to ambulate. The states hes been having 2-3 days of lower extremity edema and cough. The patient reports hes compliant with 20mg of Lasix once daily. Denies dysuria. Denies recent falls, chest pain. Allergies: NKDA PCP: Dr. Noonan at [facility] Cards: Dr. Fair. - Physicial Exam PE: 02/21/19 18:59 GENERAL: Awake, alert, and fully oriented, in no acute distress HEAD: No signs of trauma EYES: PERRLA, EOMI, sclera anicteric, conjunctiva clear ENT: Auricles normal inspection, hearing grossly normal, nares patent, oropharynx clear without exudates. Moist mucosa NECK: Normal ROM, supple, no lymphadenopathy, JVD, or masses LUNGS: Breath sounds equal, clear to auscultation bilaterally. No wheezes, and no crackles HEART: +pacemaker to the left chest wall. Regular rate and rhythm, normal S1 and S2, no murmurs, rubs or gallops ABDOMEN: Soft, nontender. No guarding, no rebound. No masses EXTREMITIES: Partial left foot amputation. +2+ pitting edema bilaterally to the lower extremity. Normal range of motion. No clubbing or cyanosis. No cords, erythema, or tenderness NEUROLOGICAL: No focal findings. Normal speech. SKIN: +bruising to the upper and lower extremity edema. Warm, Dry, normal turgor , no rashes or lesions noted. - Medical Decision Making 02/21/19 18:42 I, Dr. Kimmie Issa, DO, attest that this document has been prepared under my direction and personally reviewed by me in its entirety. I further attest, that it accurately reflects all work, treatment, procedures and medical decision -making performed by me. 02/21/19 18:42 a/p: 88yo male with generalized weakness today with home PT - unable to walk -legs felt heavy -no focal weakness, but generalized and LE swelling b/l -pt with hx of chf on lasix 20mg orally daily -has been complaint -denies dysuria, no cough -states intermittent cp -will send labs, ekg, cxr, trop, bnp -no calf ttp, no unilateral swelling -will need admission for cp and generalized weakness 02/21/19 19:34 pt with elevated bnp suspect chf exacerbation also with ASHLYN - prior culture is + enterobacter that is resistent pt will need merrem 02/21/19 19:53 cxr with poss infiltrate will add blood cultures pt will need admission will add rocephin for poss pna 02/21/19 20:36 resident discussed the case with Dr. Noonan who accepts pt to service Heart Score/ECG Review - ECG Intrepretation Comment:: 02/21/19 18:44 paced at 65, no acute findings
[2019-02-21 19:06] LABS: BILIRUBIN,TOTAL 0.4 mg/dL (0.2-1); BLOOD UREA NITROGEN 55.8 mg/dL (7-18); CALCIUM 8.3 mg/dL (8.5-10.1); CREATININE 1.8 mg/dL (0.55-1.3); N-TERMINAL BNP 10912.6 pg/ml (5-450); POTASSIUM 4.7 mmol/L (3.5-5.1); TOT PROT 7.1 g/dl (6.4-8.2)
[2019-02-21 19:22] LABS: URINE APPEARANCE TURBID; URINE BILIRUBIN NEGATIVE (NEGATIVE); URINE COLOR YELLOW; URINE GLUCOSE (UA) NEGATIVE (NEGATIVE); URINE KETONE NEGATIVE (NEGATIVE); URINE LEUK ESTERASE 3+ (NEGATIVE); URINE NITRITE NEGATIVE (NEGATIVE); URINE PROTEIN NEGATIVE (NEGATIVE); URINE UROBILINOGEN 0.2 mg/dL (0.2-1.0)
[2019-02-21] MEDS ORDERED: FUROSEMIDE 40 MG/4 ML INJECTABLE VIAL IVPUSH ONE (19:34)
[2019-02-21] MEDS ORDERED: MEROPENEM 500 MG in DEXTROSE 5%-WATER 100 ML IVPB ONE (19:34)
[2019-02-21] MEDS ORDERED: CEFTRIAXONE 1 GM in DEXTROSE 5%-WATER - 100 ML IVPB ONE (19:54)
[2019-02-21] MEDS ORDERED: CEFTRIAXONE 1 GM/50 ML BAG ONE (20:12)
[2019-02-21] MEDS ORDERED: PREGABALIN 50 MG CAPSULE ONE (22:51)
[2019-02-21] MEDS ORDERED: RANITIDINE HCL 150 MG TABLET (FP) ONE (22:51)
[2019-02-21] MEDS ORDERED: HEPARIN NA (PORCINE) 5,000 UNITS/ML 1ML VIAL ONE (22:52)
[2019-02-21] MEDS ORDERED: CARVEDILOL 3.125 MG TABLET (FP) ONE (22:52)
[2019-02-21] MEDS ORDERED: TAMSULOSIN HCL 0.4 MG CAP ONE (22:52)
[2019-02-21] MEDS: TAMSULOSIN HCL 0.4 MG CAP PO SCH (23:15)
[2019-02-21] MEDS: CARVEDILOL 3.125 MG TABLET (FP) PO SCH (23:15)
[2019-02-21] MEDS: ROSUVASTATIN CA 10 MG TABLET (FP) PO SCH (23:15)
[2019-02-21] MEDS: INSULIN (LEVEMIR) 100 UNITS/ML UNITS SQ SCH (23:15)
[2019-02-21] MEDS: HEPARIN NA (PORCINE) 5,000 UNITS/ML 1ML VIAL SQ SCH (23:15)
[2019-02-21] MEDS: RANITIDINE HCL 150 MG TABLET (FP) PO SCH (23:16)
[2019-02-21] MEDS: PREGABALIN 50 MG CAPSULE PO SCH (23:16)
[2019-02-22] MEDS: LEVOTHYROXINE NA 75 MCG TABLET (FP) PO SCH (06:38)
--- NOTE | 2019-02-22 09:46 | CON.CARD ---
Consult Consult Specialty:: Cardiology Referred by:: Joie Noonan MD Reason for Consultation:: Recurrent CHF - History of Present Illness Chief Complaint: Dyspnea and LE edema History of Present Illness: Patient is an 88 year old male with underlying history of CAD, CABG, PCI/stent, LV systolic dysfunction S/P ICD (Medtronic) for induced ventricular tachycardia most recent interrogation 06/27/2018, HTN, insulin dependent Type 2 diabetes mellitus, PAD with multiple revascularization and amputation, CKD and carotid stenosis, h/o cholecystectomy, recent hospitalization for acute on CKD, hyponatremia and hyperkalemia in conext of Bactrim use, last seen in office for device interrogation, presented with weakness, dyspnea, cough and bilateral lower extremity edema. Per , at baseline the patient was able to ambulate with his walker, however today he was unable to ambulate. The patient reports hes compliant with 20mg of Lasix once daily and diet. Denies NSAID use , chest pain, near or true syncope, palpitations, orthopnea or PND. Allergies: NKDA - History Source History Provided By: Patient Limitations to Obtaining History: No Limitations - Past Medical History Cardio/Vascular: Yes: CAD (CABG), HTN, Mitral Insufficiency, Other (ICD for induced ventricular tachycardia) Pulmonary: Yes: COPD Gastrointestinal: Yes: Other (recent C diff colitis, gallstones, chronic cholecystitis) Renal/: Yes: Renal Failure (had ARF last month in September creat bumped to 2), BPH, Renal Calculi Infectious Disease: Yes: C-Diff Musculoskeletal: Yes: Other (L foot wound s/p partial amputation) Endocrine: Yes: Diabetes Mellitus, Other (diabetic neuropathy) - Past Surgical History Past Surgical History: Yes: AICD, Amputation (TMA), Bypass, CABG - Alcohol/Substance Use Hx Alcohol Use: No History of Substance Use: reports: None - Smoking History Smoking history: Former smoker Have you smoked in the past 12 months: No Aproximately how many cigarettes per day: 30 If you are a former smoker, when did you quit?: 2009 - Social History Usual Living Arrangement: With Spouse ADL: Family Assistance History of Recent Travel: No Home Medications - Allergies Allergies/Adverse Reactions: Allergies Allergy/AdvReac Type Severity Reaction Status Date / Time No Known Allergies Allergy Verified 01/06/19 23:47 - Home Medications Home Medications: Ambulatory Orders Ascorbate Calcium [Vitamin C] 500 mg PO DAILY 01/20/14 Aspirin [ASA -] 81 mg PO DAILY 01/20/14 Carvedilol 3.125 mg PO BID 01/20/14 Folic Acid - 1 mg PO DAILY 01/20/14 Pregabalin [Lyrica -] 50 mg PO HS 01/20/14 Ranitidine HCl [Zantac] 150 mg PO HS 01/20/14 Tamsulosin HCl [Flomax -] 0.4 mg PO HS 01/20/14 Levothyroxine [Synthroid -] 75 mcg PO DAILY 07/21/16 Ergocalciferol (Vitamin D2) [Vitamin D2] 2,000 unit PO DAILY 06/09/17 Furosemide [Lasix -] 20 mg PO DAILY 06/09/17 Insulin Glargine,Hum.rec.anlog [Lantus (10mL VIAL) -] 10 units SQ HS 06/09/17 Multivit-Min/FA/Lycopen/Lutein [Centrum Silver Tablet] 1 tab PO DAILY 06/09/17 Rosuvastatin Calcium 10 mg PO HS 06/09/17 Finasteride [Proscar -] 5 mg PO DAILY tablet 01/13/19 Family Disease History - Family Disease History Family Disease History: Heart Disease: Mother, Brother (liver CA), CA: Brother Review of Systems - Review of Systems Cardiovascular: reports: Edema, Shortness of Breath Respiratory: reports: SOB, SOB on Exertion Vital Signs: Vital Signs Temperature 98.6 F 02/22/19 07:56 Pulse Rate 60 02/22/19 07:56 Respiratory Rate 18 02/22/19 07:56 Blood Pressure 128/77 02/22/19 07:56 O2 Sat by Pulse Oximetry (%) 99 02/22/19 07:56 Constitutional: Yes: No Distress, Calm Neck: Yes: Supple Respiratory: Yes: Regular, Diminished, On Nasal O2 Gastrointestinal: Yes: Normal Bowel Sounds, Soft Cardiovascular: Yes: Regular Rate and Rhythm JVD: No Carotid Bruit: No Heart Sounds: Yes: S1, S2 Murmur: Yes: Systolic Murmur, Grade 1 Edema: Yes Edema: LLE: 2+, RLE: 2+ - Other Data Labs, Other Data: CBC, BMP 02/21/19 18:13 02/21/19 18:13 Troponin, BNP 02/21/19 02/21/19 18:13 18:13 Troponin I 0.02 B-Natriuretic Peptide 39809.6 H Troponin, BNP 02/21/19 02/21/19 18:13 18:13 Troponin I 0.02 B-Natriuretic Peptide 19397.6 H V paced @ 65 Ejection Fraction %: LVEF < 40 % Imaging - Results Chest X-ray: Report Reviewed (Bilateral effusions R>L and congestion) Problem List - Problems (1) Acute on chronic systolic (congestive) heart failure Code(s): I50.23 - ACUTE ON CHRONIC SYSTOLIC (CONGESTIVE) HEART FAILURE (2) CKD (chronic kidney disease) Code(s): N18.9 - CHRONIC KIDNEY DISEASE, UNSPECIFIED Qualifiers: Chronic kidney disease stage: stage 3 (moderate) Qualified Code(s): N18.3 - Chronic kidney disease, stage 3 (moderate) (3) HTN (hypertension) Code(s): I10 - ESSENTIAL (PRIMARY) HYPERTENSION Qualifiers: Hypertension type: essential hypertension Qualified Code(s): I10 - Essential (primary) hypertension (4) History of implantable cardiac defibrillator (ICD) Code(s): TGB0195 - (5) Hx of CABG Code(s): Z95.1 - PRESENCE OF AORTOCORONARY BYPASS GRAFT (6) Hypercholesterolemia Code(s): E78.0 - PURE HYPERCHOLESTEROLEMIA * DO NOT USE * (7) Peripheral arterial disease Code(s): I73.9 - PERIPHERAL VASCULAR DISEASE, UNSPECIFIED (8) Hypothyroidism Code(s): E03.9 - HYPOTHYROIDISM, UNSPECIFIED Qualifiers: Hypothyroidism type: unspecified Qualified Code(s): E03.9 - Hypothyroidism , unspecified Assessment/Plan 07/21/2016 Echo: Moderate dilated with mild-mod decreased LV fxn, pacer RV, mild LAE, mod MR, mild TR 01/08/[address]: Mod bilateral effusions R>L 08/01/[address]: Mod bilateral effusions R>L, small pericardial effusions 08/02/2018 Echo: Mild-mod decreased LVEF 40-45%, normal RV size and fxn, mild LAE, mild MR, tr TR, LA, AR. No pericardial effusion 1. Recurrnt acute on chronic LV systolic/diastolic failure with pleural effusion 2. CKD with h/o hyperkalemia and hyponatremia 3. CAD post CABG, angina pectoris 4. HTN 5. NIDDM 6. Hypercholesterolemia 7. 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 Carotid stenosis 9. Hypothyroidism 10. PAD post GEAR NICKER and amputation (TMA) 11. Anemia post transfusion 12. BPH with hematuria cleared PLAN: 1. IV diuresis with monitor diureric response, renal fxn and electrolytes, resume Cozaar once renal fxn at baseline 2. Continue ASA 81 qd, carvedilol 3.125 bid as hemodynamics permit, Crestor 10 qhs 3. PT for gait training, continue flomax and proscar 4. Monitor off abx per C&S 5. Thank you for consultative opportunity
[2019-02-22] MEDS ORDERED: DEXTROSE 5%-WATER - 50 ML IVPB ONE (10:14)
[2019-02-22] MEDS ORDERED: cefTRIAXone SODIUM 1 GM VIAL ONE (10:14)
[2019-02-22] MEDS: HEPARIN NA (PORCINE) 5,000 UNITS/ML 1ML VIAL SQ SCH ×2 (10:29→21:17)
[2019-02-22] MEDS: CARVEDILOL 3.125 MG TABLET (FP) PO SCH ×2 (10:29→21:17)
[2019-02-22] MEDS: FOLIC ACID 1 MG TABLET (FP) PO SCH (10:29)
[2019-02-22] MEDS: ASCORBIC ACID 500 MG TABLET (FP) PO SCH (10:29)
[2019-02-22] MEDS: FUROSEMIDE 40 MG/4 ML INJECTABLE VIAL IVPUSH SCH (10:29)
[2019-02-22] MEDS: CHOLECALCIFEROL (VIT D3) 1,000 UNIT (25 MCG) TABLET PO SCH (10:29)
[2019-02-22] MEDS: FINASTERIDE 5 MG TABLET (FP) PO SCH (10:29)
[2019-02-22] MEDS: ASPIRIN 81 MG CHEWABLE TABLETS PO SCH (10:29)
[2019-02-22] MEDS: CEFTRIAXONE 1 GM in DEXTROSE 5%-WATER - 50 ML IVPB SCH (10:30)
--- NOTE | 2019-02-22 10:40 | HP ---
Admitting History and Physical - Primary Care Physician PCP: Joie Noonan S - Admission Chief Complaint: weakness SOB cough History of Present Illness: The patient is an 88-year-old male with a past medical history significant for CHF, HTN, CRF recurrent UTIs, DM, PVD Left transmetatarsal amputation, on home O2 2L presents to the emergency department with weakness and both lower extremities edema. Per (d/w her / phone) at baseline the patient was able to ambulate with his walker, however in the last couple of days he was unable to ambulate. The states hes been having 2-3 days of lower extremity edema and cough. The patient reports hes compliant with 20mg of Lasix once daily. Denies dysuria. Denies recent falls, chest pain. He was DCd from [facility] few weeks ago. History Source: Patient, Family Member, Medical Record Limitations to Obtaining History: No Limitations - Past Medical History Cardiovascular: Yes: CAD (CABG), HTN, Mitral Insufficiency, Other (ICD for induced ventricular tachycardia) Pulmonary: Yes: COPD Gastrointestinal: Yes: Other (recent C diff colitis, gallstones, chronic cholecystitis) Renal/: Yes: Renal Failure (had ARF last month in September creat bumped to 2), BPH, Renal Calculi Heme/Onc: Yes: Anemia Infectious Disease: Yes: C-Diff Musculoskeletal: Yes: Other (L foot wound s/p partial amputation) Endocrine: Yes: Diabetes Mellitus, Other (diabetic neuropathy) - Past Surgical History Past Surgical History: Yes: AICD, Amputation (TMA), Bypass, CABG - Smoking History Smoking history: Former smoker Have you smoked in the past 12 months: No Aproximately how many cigarettes per day: 30 If you are a former smoker, when did you quit?: 2009 - Alcohol/Substance Use Hx Alcohol Use: No History of Substance Use: reports: None - Social History Usual Living Arrangement: Yes: With Spouse ADL: Family Assistance History of Recent Travel: No Home Medications - Allergies Allergies/Adverse Reactions: Allergies Allergy/AdvReac Type Severity Reaction Status Date / Time No Known Allergies Allergy Verified 01/06/19 23:47 - Home Medications Home Medications: Ambulatory Orders Ascorbate Calcium [Vitamin C] 500 mg PO DAILY 01/20/14 Aspirin [ASA -] 81 mg PO DAILY 01/20/14 Carvedilol 3.125 mg PO BID 01/20/14 Folic Acid - 1 mg PO DAILY 01/20/14 Pregabalin [Lyrica -] 50 mg PO HS 01/20/14 Ranitidine HCl [Zantac] 150 mg PO HS 01/20/14 Tamsulosin HCl [Flomax -] 0.4 mg PO HS 01/20/14 Levothyroxine [Synthroid -] 75 mcg PO DAILY 07/21/16 Ergocalciferol (Vitamin D2) [Vitamin D2] 2,000 unit PO DAILY 06/09/17 Furosemide [Lasix -] 20 mg PO DAILY 06/09/17 Insulin Glargine,Hum.rec.anlog [Lantus (10mL VIAL) -] 10 units SQ HS 06/09/17 Multivit-Min/FA/Lycopen/Lutein [Centrum Silver Tablet] 1 tab PO DAILY 06/09/17 Rosuvastatin Calcium 10 mg PO HS 06/09/17 Finasteride [Proscar -] 5 mg PO DAILY tablet 01/13/19 Family Disease History - Family Disease History Family Disease History: Heart Disease: Mother, Brother (liver [place]), [place]: Brother Review of Systems - Review of Systems Constitutional: reports: Loss of Appetite, Weakness. denies: Chills, Fever, Night Sweats Eyes: denies: Blind Spots, Blurred Vision, Double Vision HENT: denies: Epistaxis, Nasal Congestion Cardiovascular: reports: Shortness of Breath. denies: Chest Pain Respiratory: reports: Cough, Exercise Intolerance, SOB, SOB on Exertion. denies : Hemoptysis Gastrointestinal: denies: Abdominal Pain, Constipation, Diarrhea, Vomiting Genitourinary: denies: Dysuria, Flank Pain Musculoskeletal: denies: Back Pain, Joint Pain Integumentary: denies: Erythema, Pruritis, Rash, Wound Neurological: reports: Unsteady Gait, Weakness. denies: Change in LOC, Change in Speech, Confusion, Headache, Seizure, Syncope Hematology/Lymphatic: denies: Easily Bruised, Excessive Bleeding Psychiatric: denies: Anxiety, Depression, Hallucinations Physical Examination Vital Signs: Vital Signs Temperature 98.6 F 02/22/19 07:56 Pulse Rate 60 02/22/19 07:56 Respiratory Rate 18 02/22/19 07:56 Blood Pressure 128/77 02/22/19 07:56 O2 Sat by Pulse Oximetry (%) 99 02/22/19 07:56 Constitutional: Yes: No Distress, Calm Eyes: Yes: Conjunctiva Clear HENT: Yes: Atraumatic Neck: Yes: Supple Cardiovascular: Yes: Regular Rate and Rhythm Respiratory: Yes: Diminished Gastrointestinal: Yes: Soft. No: Tenderness Renal/: No: CVA Tenderness - Left, CVA Tenderness - Right, Hematuria Musculoskeletal: No: Joint Stiffness, Joint Swelling Extremities: No: Cold, Cool, Cyanosis Edema: Yes Integumentary: Yes: Other (scratches / lower legs). No: Rash, Venous Stasis Changes Neurological: Yes: WNL, Alert, Oriented ...Motor Strength: WNL Psychiatric: Yes: WNL, Alert, Oriented. No: Agitated, Suicidal Ideation Labs: CBC, BMP 02/21/19 18:13 02/21/19 18:13 Imaging - Results Chest X-ray: Report Reviewed Other: Report Reviewed Assessment/Plan 02/21/19 18:59 The patient is an 88-year-old male with history of CCHF, HTN, CRF, recurrent UTI s, DM, PVD Left transmetatarsal amputation, on home O2 2L admitted with CHF exac UTI and possible PNA had recent ARF after po bactrim iv ceftriaxone; check cultures; iv lasix, f/u labs cardiology eval; CE; falls decubs pfx; do not get OOB alone d/w pt d/w pt and ; dw staff
[2019-02-22 11:23] LABS: EOS % 3.9 % (0-4.5); HEMATOCRIT 25.8 % (35.4-49); HEMOGLOBIN 8.9 GM/dL (11.7-16.9); LYMPH % 9.5 % (8-40); MCH 34.1 pg (25.7-33.7); MCHC 34.3 g/dl (32.0-35.9); MEAN CELL VOLUME 99.3 fl (80-96); MEAN PLT VOLUME 8.9 fl (7.5-11.1); MONO % 10.7 % (3.8-10.2); NEUT % 74.9 % (42.8-82.8); PLATELET COUNT 101 K/MM3 (134-434); WHITE BLOOD COUNT 4.1 K/mm3 (4.0-10.0)
[2019-02-22 11:52] LABS: ALBUMIN 2.8 g/dl (3.4-5.0); BILIRUBIN,TOTAL 0.3 mg/dL (0.2-1); BLOOD UREA NITROGEN 50.1 mg/dL (7-18); CALCIUM 8.2 mg/dL (8.5-10.1); CREATININE 1.5 mg/dL (0.55-1.3); POTASSIUM 4.1 mmol/L (3.5-5.1); TOT PROT 6.7 g/dl (6.4-8.2)
--- NOTE | 2019-02-22 14:04 | EKG ---
Test Reason : Blood Pressure : / mmHG Vent. Rate : 065 BPM Atrial Rate : 065 BPM P-R Int : 000 ms QRS Dur : 188 ms QT Int : 492 ms P-R-T Axes : 000 -69 099 degrees QTc Int : 511 ms Ventricular-paced rhythm ABNORMAL ECG WHEN COMPARED WITH ECG OF 07-JAN-2019 01:22, VENT. RATE HAS INCREASED BY 5 BPM Confirmed by DAVID BUTCHER MD ([id number]) on 02/22/2019 2:04:05 PM Referred By: Confirmed By:DAVID BUTCHER MD
--- NOTE | 2019-02-22 15:20 | CON.PULM ---
Consult Consult Specialty:: PULMONARY Referred by:: Dr Noonan Reason for Consultation:: shortness of breath - History of Present Illness Chief Complaint: shortness of breath History of Present Illness: 88yo male with h/o HTN, DM, PAD, CKD, CAD s/p CABG, LV systolic dysfunction, carotid stenosis who was admitted with worsening shortness of breath and leg swelling x 4 days. Denies chest pain but with some chest discomfort. + nonproductive cough without wheezing. No fevers, chills or sweats. Reports increased orthopnea and PND. He is a remote smoker, denies history of asthma or COPD. - History Source History Provided By: Patient, Family Member, Significant Other, Medical Record Limitations to Obtaining History: No Limitations - Past Medical History Cardio/Vascular: Yes: CAD (CABG), HTN, Mitral Insufficiency, Other (ICD for induced ventricular tachycardia) Pulmonary: Yes: COPD Gastrointestinal: Yes: Other (recent C diff colitis, gallstones, chronic cholecystitis) Renal/: Yes: Renal Failure (had ARF last month in September creat bumped to 2), BPH, Renal Calculi Infectious Disease: Yes: C-Diff Musculoskeletal: Yes: Other (L foot wound s/p partial amputation) Endocrine: Yes: Diabetes Mellitus, Other (diabetic neuropathy) - Past Surgical History Past Surgical History: Yes: AICD, Amputation (TMA), Bypass, CABG - Alcohol/Substance Use Hx Alcohol Use: No History of Substance Use: reports: None - Smoking History Smoking history: Former smoker Have you smoked in the past 12 months: No Aproximately how many cigarettes per day: 30 If you are a former smoker, when did you quit?: 2009 - Social History Usual Living Arrangement: With Spouse ADL: Family Assistance History of Recent Travel: No Home Medications - Allergies Allergies/Adverse Reactions: Allergies Allergy/AdvReac Type Severity Reaction Status Date / Time No Known Allergies Allergy Verified 01/06/19 23:47 - Home Medications Home Medications: Ambulatory Orders Ascorbate Calcium [Vitamin C] 500 mg PO DAILY 01/20/14 Aspirin [ASA -] 81 mg PO DAILY 01/20/14 Carvedilol 3.125 mg PO BID 01/20/14 Folic Acid - 1 mg PO DAILY 01/20/14 Pregabalin [Lyrica -] 50 mg PO HS 01/20/14 Ranitidine HCl [Zantac] 150 mg PO HS 01/20/14 Tamsulosin HCl [Flomax -] 0.4 mg PO HS 01/20/14 Levothyroxine [Synthroid -] 75 mcg PO DAILY 07/21/16 Ergocalciferol (Vitamin D2) [Vitamin D2] 2,000 unit PO DAILY 06/09/17 Furosemide [Lasix -] 20 mg PO DAILY 06/09/17 Insulin Glargine,Hum.rec.anlog [Lantus (10mL VIAL) -] 10 units SQ HS 06/09/17 Multivit-Min/FA/Lycopen/Lutein [Centrum Silver Tablet] 1 tab PO DAILY 06/09/17 Rosuvastatin Calcium 10 mg PO HS 06/09/17 Finasteride [Proscar -] 5 mg PO DAILY tablet 01/13/19 Family Disease History - Family Disease History Family Disease History: Heart Disease: Mother, Brother (liver [place]), [place]: Brother Review of Systems - Review of Systems Constitutional: reports: Weakness. denies: Chills, Fever Eyes: denies: Recent Change in Vision HENT: denies: Nasal Congestion, Throat Pain Neck: denies: Stiffness, Tenderness Cardiovascular: reports: Edema, Shortness of Breath. denies: Chest Pain, Palpitations Respiratory: reports: Cough, Exercise Intolerance, Orthopnea, PND, SOB on Exertion. denies: Hemoptysis, Wheezing Gastrointestinal: denies: Abdominal Pain, Nausea, Vomiting Genitourinary: denies: Dysuria, Hematuria Neurological: denies: Dizziness, Headache Endocrine: denies: Unexplained Weight Loss Physical Exam Vital Sings: Vital Signs Temperature 98.6 F 02/22/19 07:56 Pulse Rate 60 02/22/19 07:56 Respiratory Rate 18 02/22/19 07:56 Blood Pressure 128/77 02/22/19 07:56 O2 Sat by Pulse Oximetry (%) 99 02/22/19 07:56 Constitutional: Yes: Calm Eyes: Yes: Conjunctiva Clear, EOM Intact HENT: Yes: Atraumatic, Normocephalic Neck: Yes: Supple, Trachea Midline Cardiovascular: Yes: Regular Rate and Rhythm Respiratory: Yes: Rhonchi ...Clubbing: No Gastrointestinal: Yes: Normal Bowel Sounds, Soft. No: Tenderness Edema: Yes Neurological: Yes: Alert, Oriented Labs: CBC, BMP 02/22/19 11:13 02/22/19 11:13 Imaging - Results Chest X-ray: Report Reviewed, Image Reviewed (pulmonary vascular congestion) Problem List - Problems (1) Acute on chronic systolic (congestive) heart failure Code(s): I50.23 - ACUTE ON CHRONIC SYSTOLIC (CONGESTIVE) HEART FAILURE (2) Urinary tract infection Code(s): N39.0 - URINARY TRACT INFECTION, SITE NOT SPECIFIED Assessment/Plan Acute on Chronic Systolic/Diastolic Heart Failure CAD s/p CABG CKD HTN DM Carotid Stenosis PAD Anemia r/o UTI - IV lasix - monitor urine output, creatinine - daily weights - O2 to keep SpO2 >90% - on empiric antibiotics - f/u cultures - do not suspect pneumonia at this time - DVT prophylaxis Thank you for this consult Andres Farfan MD
[2019-02-22] MEDS: PREGABALIN 50 MG CAPSULE PO SCH (21:17)
[2019-02-22] MEDS: RANITIDINE HCL 150 MG TABLET (FP) PO SCH (21:17)
[2019-02-22] MEDS: TAMSULOSIN HCL 0.4 MG CAP PO SCH (21:17)
[2019-02-22] MEDS: ROSUVASTATIN CA 10 MG TABLET (FP) PO SCH (21:17)
[2019-02-22] MEDS: INSULIN (LEVEMIR) 100 UNITS/ML UNITS SQ SCH (21:23)
[2019-02-23] MEDS: LEVOTHYROXINE NA 75 MCG TABLET (FP) PO SCH (06:36)
[2019-02-23] MEDS ORDERED: cefTRIAXone SODIUM 1 GM VIAL ONE (07:22)
[2019-02-23] MEDS ORDERED: DEXTROSE 5%-WATER - 50 ML IVPB ONE (07:23)
[2019-02-23 07:31] LABS: BASO % 0.8 % (0-2.0); EOS % 4.4 % (0-4.5); HEMATOCRIT 25.1 % (35.4-49); HEMOGLOBIN 8.9 GM/dL (11.7-16.9); LYMPH % 12.3 % (8-40); MCH 34.9 pg (25.7-33.7); MCHC 35.3 g/dl (32.0-35.9); MEAN CELL VOLUME 98.7 fl (80-96); MEAN PLT VOLUME 9.2 fl (7.5-11.1); MONO % 14.2 % (3.8-10.2); NEUT % 68.3 % (42.8-82.8); PLATELET COUNT 96 K/MM3 (134-434); RBC 2.54 M/mm3 (4.00-5.60); RDW 15.1 % (11.9-15.9)
[2019-02-23 07:37] LABS: BLOOD UREA NITROGEN 48.1 mg/dL (7-18); CALCIUM 8.3 mg/dL (8.5-10.1); CREATININE 1.5 mg/dL (0.55-1.3)
[2019-02-23] MEDS: FINASTERIDE 5 MG TABLET (FP) PO SCH (10:20)
[2019-02-23] MEDS: HEPARIN NA (PORCINE) 5,000 UNITS/ML 1ML VIAL SQ SCH ×3 (10:21→21:19)
[2019-02-23] MEDS: ASCORBIC ACID 500 MG TABLET (FP) PO SCH (10:21)
[2019-02-23] MEDS: FUROSEMIDE 40 MG/4 ML INJECTABLE VIAL IVPUSH SCH (10:21)
[2019-02-23] MEDS: FOLIC ACID 1 MG TABLET (FP) PO SCH (10:21)
[2019-02-23] MEDS: CHOLECALCIFEROL (VIT D3) 1,000 UNIT (25 MCG) TABLET PO SCH (10:21)
[2019-02-23] MEDS: CARVEDILOL 3.125 MG TABLET (FP) PO SCH ×3 (10:21→21:19)
[2019-02-23] MEDS: ASPIRIN 81 MG CHEWABLE TABLETS PO SCH (10:21)
[2019-02-23] MEDS: CEFTRIAXONE 1 GM in DEXTROSE 5%-WATER - 50 ML IVPB SCH (10:21)
--- NOTE | 2019-02-23 10:39 | PN ---
Progress Note (short form) - Note Progress Note: PULMONARY Breathing better today. Minimal cough. No chest pain. Vital Signs Period Temp Pulse Resp BP Sys/Blanca Pulse Ox Last 24 Hr 97.5 F-98 F 60-70 18-20 104-124/46-78 100-100 Intake & Output 02/20/19 02/21/19 02/22/19 02/23/19 23:59 23:59 23:59 23:59 Intake Total 250 180 Output Total 250 Balance -250 250 180 Weight 68 kg 68 kg 68.946 kg Gen: NAD at rest Heart: RRR Lung: decreased breath sounds at the bases Abd: soft, nontender Ext: distal edema CBC, BMP 02/23/19 06:08 02/23/19 06:08 Active Medications Ascorbic Acid (Vitamin C -) 500 mg PO DAILY [facility] Last Admin: 02/23/19 10:21 Dose: 500 mg Aspirin (Asa -) 81 mg PO DAILY [facility] Last Admin: 02/23/19 10:21 Dose: 81 mg Carvedilol (Coreg -) 3.125 mg PO BID [facility] Last Admin: 02/23/19 10:21 Dose: 3.125 mg Cholecalciferol (Vitamin D3 -) 2,000 unit PO DAILY [facility] Last Admin: 02/23/19 10:21 Dose: 2,000 unit Finasteride (Proscar -) 5 mg PO DAILY [facility] Last Admin: 02/23/19 10:20 Dose: 5 mg Folic Acid (Folic Acid -) 1 mg PO DAILY [facility] Last Admin: 02/23/19 10:21 Dose: 1 mg Furosemide (Lasix Injection -) 40 mg IVPUSH DAILY [facility] Last Admin: 02/23/19 10:21 Dose: 40 mg Heparin Sodium (Porcine) (Heparin -) 5,000 unit SQ BID [facility] Last Admin: 02/23/19 10:21 Dose: 5,000 unit Ceftriaxone Sodium 1 gm/ (Dextrose) 50 mls @ 100 mls/hr IVPB DAILY [facility] Last Admin: 02/23/19 10:21 Dose: 100 mls/hr Insulin Detemir (Levemir Vial) 10 units SQ HS [facility] Last Admin: 02/22/19 21:23 Dose: 10 unit Levothyroxine Sodium (Synthroid -) 75 mcg PO 0700 [facility] Last Admin: 02/23/19 06:36 Dose: 75 mcg Pregabalin (Lyrica -) 50 mg PO [facility] Last Admin: 02/22/19 21:17 Dose: 50 mg Ranitidine HCl (Zantac -) 150 mg PO [facility] Last Admin: 02/22/19 21:17 Dose: 150 mg Rosuvastatin Calcium (Crestor -) 10 mg PO [facility] Last Admin: 02/22/19 21:17 Dose: 10 mg Tamsulosin HCl (Flomax -) 0.4 mg PO [facility] Last Admin: 02/22/19 21:17 Dose: 0.4 mg A/P Acute on Chronic Systolic/Diastolic Heart Failure CAD s/p CABG CKD HTN DM Carotid Stenosis PAD Anemia UTI - continue lasix - monitor urine output, creatinine - daily weights - O2 to keep SpO2 >90% - continue antibiotics - f/u cultures - do not suspect pneumonia at this time - repeat CXR in AM - DVT prophylaxis Problem List - Problems (1) Acute on chronic systolic (congestive) heart failure Code(s): I50.23 - ACUTE ON CHRONIC SYSTOLIC (CONGESTIVE) HEART FAILURE (2) Urinary tract infection Code(s): N39.0 - URINARY TRACT INFECTION, SITE NOT SPECIFIED
--- NOTE | 2019-02-23 10:46 | PN ---
Progress Note, Physician History of Present Illness: Weakness, dyspnea, cough and bilateral lower extremity edema improving with diuresis, renal fxn at baseline. - Current Medication List Current Medications: Active Medications Ascorbic Acid (Vitamin C -) 500 mg PO DAILY [facility] Last Admin: 02/23/19 10:21 Dose: 500 mg Aspirin (Asa -) 81 mg PO DAILY [facility] Last Admin: 02/23/19 10:21 Dose: 81 mg Carvedilol (Coreg -) 3.125 mg PO BID [facility] Last Admin: 02/23/19 10:21 Dose: 3.125 mg Cholecalciferol (Vitamin D3 -) 2,000 unit PO DAILY [facility] Last Admin: 02/23/19 10:21 Dose: 2,000 unit Finasteride (Proscar -) 5 mg PO DAILY [facility] Last Admin: 02/23/19 10:20 Dose: 5 mg Folic Acid (Folic Acid -) 1 mg PO DAILY [facility] Last Admin: 02/23/19 10:21 Dose: 1 mg Furosemide (Lasix Injection -) 40 mg IVPUSH DAILY [facility] Last Admin: 02/23/19 10:21 Dose: 40 mg Heparin Sodium (Porcine) (Heparin -) 5,000 unit SQ BID [facility] Last Admin: 02/23/19 10:21 Dose: 5,000 unit Ceftriaxone Sodium 1 gm/ (Dextrose) 50 mls @ 100 mls/hr IVPB DAILY [facility] Last Admin: 02/23/19 10:21 Dose: 100 mls/hr Insulin Detemir (Levemir Vial) 10 units SQ HS [facility] Last Admin: 02/22/19 21:23 Dose: 10 unit Levothyroxine Sodium (Synthroid -) 75 mcg PO 0700 [facility] Last Admin: 02/23/19 06:36 Dose: 75 mcg Pregabalin (Lyrica -) 50 mg PO HS [facility] Last Admin: 02/22/19 21:17 Dose: 50 mg Ranitidine HCl (Zantac -) 150 mg PO HS [facility] Last Admin: 02/22/19 21:17 Dose: 150 mg Rosuvastatin Calcium (Crestor -) 10 mg PO HS [facility] Last Admin: 02/22/19 21:17 Dose: 10 mg Tamsulosin HCl (Flomax -) 0.4 mg PO HS [facility] Last Admin: 02/22/19 21:17 Dose: 0.4 mg - Objective Vital Signs: Vital Signs Temperature 97.8 F 02/23/19 08:21 Pulse Rate 68 02/23/19 08:21 Respiratory Rate 18 02/23/19 08:21 Blood Pressure 112/78 02/23/19 08:21 O2 Sat by Pulse Oximetry (%) 100 02/23/19 08:21 Constitutional: Yes: No Distress, Calm, Thin Neck: Yes: Supple Cardiovascular: Yes: Regular Rate and Rhythm Respiratory: Yes: Regular, Diminished Gastrointestinal: Yes: Normal Bowel Sounds, Soft Edema: Yes Edema: LLE: 1+, RLE: 1+ Labs: CBC, BMP 02/23/19 06:08 02/23/19 06:08 - ....Imaging EKG: Report Reviewed (Tele: [employer]) Problem List - Problems (1) Acute on chronic systolic (congestive) heart failure Code(s): I50.23 - ACUTE ON CHRONIC SYSTOLIC (CONGESTIVE) HEART FAILURE (2) CKD (chronic kidney disease) Code(s): N18.9 - CHRONIC KIDNEY DISEASE, UNSPECIFIED Qualifiers: Chronic kidney disease stage: stage 3 (moderate) Qualified Code(s): N18.3 - Chronic kidney disease, stage 3 (moderate) (3) HTN (hypertension) Code(s): I10 - ESSENTIAL (PRIMARY) HYPERTENSION Qualifiers: Hypertension type: essential hypertension Qualified Code(s): I10 - Essential (primary) hypertension (4) History of implantable cardiac defibrillator (ICD) Code(s): [id number] - (5) Hx of CABG Code(s): Z95.1 - PRESENCE OF AORTOCORONARY BYPASS GRAFT (6) Hypercholesterolemia Code(s): E78.0 - PURE HYPERCHOLESTEROLEMIA * DO NOT USE * (7) Peripheral arterial disease Code(s): I73.9 - PERIPHERAL VASCULAR DISEASE, UNSPECIFIED (8) Hypothyroidism Code(s): E03.9 - HYPOTHYROIDISM, UNSPECIFIED Qualifiers: Hypothyroidism type: unspecified Qualified Code(s): E03.9 - Hypothyroidism , unspecified Assessment/Plan 07/21/2016 Echo: Moderate dilated with mild-mod decreased LV fxn, pacer RV, mild LAE, mod MR, mild TR 01/08/[address]: Mod bilateral effusions R>L 08/01/[address]: Mod bilateral effusions R>L, small pericardial effusions 08/02/2018 Echo: Mild-mod decreased LVEF 40-45%, normal RV size and fxn, mild LAE, mild MR, tr TR, [place], [place]. No pericardial effusion 1. Recurrent acute on chronic LV systolic/diastolic failure with pleural effusion 2. CKD with h/o hyperkalemia and hyponatremia 3. CAD post CABG, angina pectoris 4. HTN 5. NIDDM 6. Hypercholesterolemia 7. 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 Carotid stenosis 9. Hypothyroidism 10. PAD post [employer]PERATOR and amputation (TMA) 11. Anemia post transfusion 12. BPH with hematuria cleared PLAN: 1. IV diuresis with monitor diureric response, renal fxn and electrolytes, resume Cozaar 12.5 qd as renal fxn at baseline and hyperkalemia resolved 2. Continue ASA 81 qd, carvedilol 3.125 bid as hemodynamics permit, Crestor 10 qhs 3. PT for gait training, continue flomax and proscar 4. Monitor off abx per C&S 5. DVT and GI prophylaxis
--- NOTE | 2019-02-23 11:35 | PN ---
Progress Note, Physician History of Present Illness: Pt w/o SOB, CP, palp, abd pain. Pt c/o [place], thinks that build up wax again - Current Medication List Current Medications: Active Medications Ascorbic Acid (Vitamin C -) 500 mg PO DAILY [facility] Last Admin: 02/23/19 10:21 Dose: 500 mg Aspirin (Asa -) 81 mg PO DAILY [facility] Last Admin: 02/23/19 10:21 Dose: 81 mg Carvedilol (Coreg -) 3.125 mg PO BID [facility] Last Admin: 02/23/19 10:21 Dose: 3.125 mg Cholecalciferol (Vitamin D3 -) 2,000 unit PO DAILY [facility] Last Admin: 02/23/19 10:21 Dose: 2,000 unit Finasteride (Proscar -) 5 mg PO DAILY [facility] Last Admin: 02/23/19 10:20 Dose: 5 mg Folic Acid (Folic Acid -) 1 mg PO DAILY [facility] Last Admin: 02/23/19 10:21 Dose: 1 mg Furosemide (Lasix Injection -) 40 mg IVPUSH DAILY [facility] Last Admin: 02/23/19 10:21 Dose: 40 mg Heparin Sodium (Porcine) (Heparin -) 5,000 unit SQ BID [facility] Last Admin: 02/23/19 10:21 Dose: 5,000 unit Ceftriaxone Sodium 1 gm/ (Dextrose) 50 mls @ 100 mls/hr IVPB DAILY [facility] Last Admin: 02/23/19 10:21 Dose: 100 mls/hr Insulin Detemir (Levemir Vial) 10 units SQ HS [facility] Last Admin: 02/22/19 21:23 Dose: 10 unit Levothyroxine Sodium (Synthroid -) 75 mcg PO 0700 [facility] Last Admin: 02/23/19 06:36 Dose: 75 mcg Losartan Potassium (Cozaar -) 12.5 mg PO DAILY [facility] Pregabalin (Lyrica -) 50 mg PO HS [facility] Last Admin: 02/22/19 21:17 Dose: 50 mg Ranitidine HCl (Zantac -) 150 mg PO HS [facility] Last Admin: 02/22/19 21:17 Dose: 150 mg Rosuvastatin Calcium (Crestor -) 10 mg PO HS [facility] Last Admin: 02/22/19 21:17 Dose: 10 mg Tamsulosin HCl (Flomax -) 0.4 mg PO HS [facility] Last Admin: 02/22/19 21:17 Dose: 0.4 mg - Objective Vital Signs: Vital Signs Temperature 97.8 F 02/23/19 08:21 Pulse Rate 68 02/23/19 08:21 Respiratory Rate 18 02/23/19 08:21 Blood Pressure 112/78 02/23/19 08:21 O2 Sat by Pulse Oximetry (%) 100 02/23/19 08:21 Constitutional: Yes: No Distress, Calm Cardiovascular: Yes: Regular Rate and Rhythm, S1, S2 Respiratory: Yes: Regular. No: Rales, Wheezes Gastrointestinal: Yes: Normal Bowel Sounds, Soft Edema: LLE: 1+, RLE: 1+ Neurological: Yes: Alert, Oriented Labs: CBC, BMP 02/23/19 06:08 02/23/19 06:08 Problem List - Problems (1) Acute on chronic systolic (congestive) heart failure Code(s): I50.23 - ACUTE ON CHRONIC SYSTOLIC (CONGESTIVE) HEART FAILURE (2) Urinary tract infection Code(s): N39.0 - URINARY TRACT INFECTION, SITE NOT SPECIFIED (3) Anemia Code(s): D64.9 - ANEMIA, UNSPECIFIED Qualifiers: (4) CAD (coronary artery disease) Code(s): I25.10 - ATHSCL HEART DISEASE OF [place] CORONARY ARTERY W/O ANG PCTRS Qualifiers: Coronary Disease-Associated Artery/Lesion type: [place] artery [place] vs. transplanted heart: [place] heart Associated angina: without angina Qualified Code(s): I25.10 - Atherosclerotic heart disease of [place] coronary artery without angina pectoris (5) CKD (chronic kidney disease) Code(s): N18.9 - CHRONIC KIDNEY DISEASE, UNSPECIFIED Qualifiers: Chronic kidney disease stage: stage 3 (moderate) Qualified Code(s): N18.3 - Chronic kidney disease, stage 3 (moderate) (6) Diabetes mellitus Code(s): E11.9 - TYPE 2 DIABETES MELLITUS WITHOUT COMPLICATIONS Qualifiers: Diabetes mellitus type: type 2 Chronic kidney disease stage: stage 2 (mild ) (7) [place] (hard of hearing) Code(s): H91.90 - UNSPECIFIED HEARING LOSS, UNSPECIFIED EAR Assessment/Plan IV lasix IV abtx Monitor elecrolytes Monitor H/ H Trial of Debrox AM Labs
[2019-02-23 12:09] LABS: ERYTHROCYTE SEDIMENTATION RATE 20 mm/hr (0-20)
[2019-02-23] MEDS: NYSTATIN/TRIAMCINOLONE TOPICAL CREAM 15 GM TUBE TP SCH ×2 (12:53→21:20)
[2019-02-23] MEDS: LOSARTAN POTASSIUM 25 MG TABLET PO SCH (14:53)
[2019-02-23] MEDS: ROSUVASTATIN CA 10 MG TABLET (FP) PO SCH ×2 (20:47→21:19)
[2019-02-23] MEDS: PREGABALIN 50 MG CAPSULE PO SCH ×2 (20:48→21:19)
[2019-02-23] MEDS: RANITIDINE HCL 150 MG TABLET (FP) PO SCH ×2 (20:48→21:20)
[2019-02-23] MEDS: TAMSULOSIN HCL 0.4 MG CAP PO SCH ×2 (20:48→21:19)
[2019-02-23] MEDS: INSULIN (LEVEMIR) 100 UNITS/ML UNITS SQ SCH ×2 (20:50→21:19)
[2019-02-23] MEDS: CARBAMIDE PEROXIDE 6.5% OTIC 15 ML BOTTLE AD SCH (21:15)
[2019-02-24] MEDS: LEVOTHYROXINE NA 75 MCG TABLET (FP) PO SCH (06:21)
[2019-02-24 08:11] LABS: HEMATOCRIT 26.3 % (35.4-49); MCH 34.2 pg (25.7-33.7); MCHC 34.3 g/dl (32.0-35.9); MEAN CELL VOLUME 99.7 fl (80-96); MEAN PLT VOLUME 9.3 fl (7.5-11.1); PLATELET COUNT 119 K/MM3 (134-434); RBC 2.63 M/mm3 (4.00-5.60); RDW 15.1 % (11.9-15.9); WHITE BLOOD COUNT 5.3 K/mm3 (4.0-10.0)
[2019-02-24 08:42] LABS: BILIRUBIN,TOTAL 0.6 mg/dL (0.2-1); BLOOD UREA NITROGEN 53.9 mg/dL (7-18); CALCIUM 8.7 mg/dL (8.5-10.1); CREATININE 1.7 mg/dL (0.55-1.3); POTASSIUM 4.5 mmol/L (3.5-5.1); TOT PROT 7.2 g/dl (6.4-8.2)
[2019-02-24] MEDS ORDERED: cefTRIAXone SODIUM 1 GM VIAL ONE (09:02)
[2019-02-24] MEDS ORDERED: DEXTROSE 5%-WATER - 50 ML IVPB ONE (09:02)
[2019-02-24] MEDS: CHOLECALCIFEROL (VIT D3) 1,000 UNIT (25 MCG) TABLET PO SCH (09:25)
[2019-02-24] MEDS: CARVEDILOL 3.125 MG TABLET (FP) PO SCH ×2 (09:25→21:48)
[2019-02-24] MEDS: LOSARTAN POTASSIUM 25 MG TABLET PO SCH (09:25)
[2019-02-24] MEDS: FINASTERIDE 5 MG TABLET (FP) PO SCH (09:25)
[2019-02-24] MEDS: ASPIRIN 81 MG CHEWABLE TABLETS PO SCH (09:25)
[2019-02-24] MEDS: ASCORBIC ACID 500 MG TABLET (FP) PO SCH (09:25)
[2019-02-24] MEDS: FOLIC ACID 1 MG TABLET (FP) PO SCH (09:26)
[2019-02-24] MEDS: CEFTRIAXONE 1 GM in DEXTROSE 5%-WATER - 50 ML IVPB SCH (09:26)
[2019-02-24] MEDS: FUROSEMIDE 40 MG/4 ML INJECTABLE VIAL IVPUSH SCH (09:26)
[2019-02-24] MEDS: HEPARIN NA (PORCINE) 5,000 UNITS/ML 1ML VIAL SQ SCH ×2 (09:26→21:48)
[2019-02-24] MEDS: CARBAMIDE PEROXIDE 6.5% OTIC 15 ML BOTTLE AD SCH ×2 (09:27→21:53)
--- NOTE | 2019-02-24 10:48 | PN ---
Progress Note (short form) - Note Progress Note: PULMONARY Some sweats and chills this AM with episode of shortness of breath but now improved. Minimal cough. No chest pain. Vital Signs Period Temp Pulse Resp BP Sys/Blanca Pulse Ox Last 24 Hr 97.8 F-98.3 F 69-72 18-20 94-122/54-88 98-98 Gen: NAD at rest Heart: RRR Lung: decreased breath sounds at the bases Abd: soft, nontender Ext: distal edema CBC, BMP 02/24/19 05:55 02/24/19 05:55 Active Medications Ascorbic Acid (Vitamin C -) 500 mg PO DAILY [facility] Last Admin: 02/24/19 09:25 Dose: 500 mg Aspirin (Asa -) 81 mg PO DAILY [facility] Last Admin: 02/24/19 09:25 Dose: 81 mg Carbamide Perox/Anhydrous Glycerin (Debrox -) 10 drop AD BID [facility] Last Admin: 02/24/19 09:27 Dose: 10 drop Carvedilol (Coreg -) 3.125 mg PO BID [facility] Last Admin: 02/24/19 09:25 Dose: 3.125 mg Cholecalciferol (Vitamin D3 -) 2,000 unit PO DAILY [facility] Last Admin: 02/24/19 09:25 Dose: 2,000 unit Finasteride (Proscar -) 5 mg PO DAILY [facility] Last Admin: 02/24/19 09:25 Dose: 5 mg Folic Acid (Folic Acid -) 1 mg PO DAILY [facility] Last Admin: 02/24/19 09:26 Dose: 1 mg Furosemide (Lasix Injection -) 40 mg IVPUSH DAILY [facility] Last Admin: 02/24/19 09:26 Dose: 40 mg Heparin Sodium (Porcine) (Heparin -) 5,000 unit SQ BID [facility] Last Admin: 02/24/19 09:26 Dose: 5,000 unit Ceftriaxone Sodium 1 gm/ (Dextrose) 50 mls @ 100 mls/hr IVPB DAILY [facility] Last Admin: 02/24/19 09:26 Dose: 100 mls/hr Insulin Detemir (Levemir Vial) 10 units SQ HS [facility] Last Admin: 02/23/19 21:19 Dose: Not Given Levothyroxine Sodium (Synthroid -) 75 mcg PO 0700 [facility] Last Admin: 02/24/19 06:21 Dose: 75 mcg Losartan Potassium (Cozaar -) 12.5 mg PO DAILY [facility] Last Admin: 02/24/19 09:25 Dose: 12.5 mg Nystatin/Triamcinolone Acetonide (Mycolog Ii Cream -) 1 applic TP BID [facility]; Protocol Stop: 03/09/19 12:14 Last Admin: 02/23/19 21:20 Dose: 1 applic Pregabalin (Lyrica -) 50 mg PO [facility] Last Admin: 02/23/19 21:19 Dose: Not Given Ranitidine HCl (Zantac -) 150 mg PO [facility] Last Admin: 02/23/19 21:20 Dose: Not Given Rosuvastatin Calcium (Crestor -) 10 mg PO [facility] Last Admin: 02/23/19 21:19 Dose: Not Given Tamsulosin HCl (Flomax -) 0.4 mg PO [facility] Last Admin: 02/23/19 21:19 Dose: Not Given A/P Acute on Chronic Systolic/Diastolic Heart Failure CAD s/p CABG CKD HTN DM Carotid Stenosis PAD Anemia UTI - continue lasix - monitor urine output, creatinine - daily weights - O2 to keep SpO2 >90% - continue antibiotics - f/u cultures - DVT prophylaxis Problem List - Problems (1) Acute on chronic systolic (congestive) heart failure Code(s): I50.23 - ACUTE ON CHRONIC SYSTOLIC (CONGESTIVE) HEART FAILURE (2) Urinary tract infection Code(s): N39.0 - URINARY TRACT INFECTION, SITE NOT SPECIFIED
--- NOTE | 2019-02-24 11:31 | PN ---
Progress Note, Physician History of Present Illness: Weakness, dyspnea, cough and bilateral lower extremity edema improving with diuresis, OOB to chair. - Current Medication List Current Medications: Active Medications Ascorbic Acid (Vitamin C -) 500 mg PO DAILY [facility] Last Admin: 02/24/19 09:25 Dose: 500 mg Aspirin (Asa -) 81 mg PO DAILY [facility] Last Admin: 02/24/19 09:25 Dose: 81 mg Carbamide Perox/Anhydrous Glycerin (Debrox -) 10 drop AD BID [facility] Last Admin: 02/24/19 09:27 Dose: 10 drop Carvedilol (Coreg -) 3.125 mg PO BID [facility] Last Admin: 02/24/19 09:25 Dose: 3.125 mg Cholecalciferol (Vitamin D3 -) 2,000 unit PO DAILY [facility] Last Admin: 02/24/19 09:25 Dose: 2,000 unit Finasteride (Proscar -) 5 mg PO DAILY [facility] Last Admin: 02/24/19 09:25 Dose: 5 mg Folic Acid (Folic Acid -) 1 mg PO DAILY [facility] Last Admin: 02/24/19 09:26 Dose: 1 mg Furosemide (Lasix Injection -) 40 mg IVPUSH DAILY [facility] Last Admin: 02/24/19 09:26 Dose: 40 mg Heparin Sodium (Porcine) (Heparin -) 5,000 unit SQ BID [facility] Last Admin: 02/24/19 09:26 Dose: 5,000 unit Ceftriaxone Sodium 1 gm/ (Dextrose) 50 mls @ 100 mls/hr IVPB DAILY [facility] Last Admin: 02/24/19 09:26 Dose: 100 mls/hr Insulin Detemir (Levemir Vial) 10 units SQ HS [facility] Last Admin: 02/23/19 21:19 Dose: Not Given Levothyroxine Sodium (Synthroid -) 75 mcg PO 0700 [facility] Last Admin: 02/24/19 06:21 Dose: 75 mcg Losartan Potassium (Cozaar -) 12.5 mg PO DAILY [facility] Last Admin: 02/24/19 09:25 Dose: 12.5 mg Nystatin/Triamcinolone Acetonide (Mycolog Ii Cream -) 1 applic TP BID [facility]; Protocol Stop: 03/09/19 12:14 Last Admin: 02/23/19 21:20 Dose: 1 applic Pregabalin (Lyrica -) 50 mg PO HS [facility] Last Admin: 02/23/19 21:19 Dose: Not Given Ranitidine HCl (Zantac -) 150 mg PO [facility] Last Admin: 02/23/19 21:20 Dose: Not Given Rosuvastatin Calcium (Crestor -) 10 mg PO [facility] Last Admin: 02/23/19 21:19 Dose: Not Given Tamsulosin HCl (Flomax -) 0.4 mg PO [facility] Last Admin: 02/23/19 21:19 Dose: Not Given - Objective Vital Signs: Vital Signs Temperature 98.0 F 02/24/19 09:20 Pulse Rate 72 02/24/19 09:20 Respiratory Rate 20 02/24/19 09:20 Blood Pressure 119/88 02/24/19 09:20 O2 Sat by Pulse Oximetry (%) 98 02/24/19 09:00 Constitutional: Yes: No Distress, Calm, Thin Neck: Yes: Supple Cardiovascular: Yes: Regular Rate and Rhythm, Murmur (2/6 SM) Respiratory: Yes: Regular, Diminished, On Nasal O2 Gastrointestinal: Yes: Normal Bowel Sounds, Soft Edema: Yes Edema: LLE: 1+, RLE: 1+ Labs: CBC, BMP 02/24/19 05:55 02/24/19 05:55 - ....Imaging Chest X-ray: Report Reviewed (R>L effusion) EKG: Report Reviewed (AV paced) Problem List - Problems (1) Acute on chronic systolic (congestive) heart failure Code(s): I50.23 - ACUTE ON CHRONIC SYSTOLIC (CONGESTIVE) HEART FAILURE (2) CKD (chronic kidney disease) Code(s): N18.9 - CHRONIC KIDNEY DISEASE, UNSPECIFIED Qualifiers: Chronic kidney disease stage: stage 3 (moderate) Qualified Code(s): N18.3 - Chronic kidney disease, stage 3 (moderate) (3) HTN (hypertension) Code(s): I10 - ESSENTIAL (PRIMARY) HYPERTENSION Qualifiers: Hypertension type: essential hypertension Qualified Code(s): I10 - Essential (primary) hypertension (4) History of implantable cardiac defibrillator (ICD) Code(s): [id number] - (5) Hx of CABG Code(s): Z95.1 - PRESENCE OF AORTOCORONARY BYPASS GRAFT (6) Hypercholesterolemia Code(s): E78.0 - PURE HYPERCHOLESTEROLEMIA * DO NOT USE * (7) Peripheral arterial disease Code(s): I73.9 - PERIPHERAL VASCULAR DISEASE, UNSPECIFIED (8) Hypothyroidism Code(s): E03.9 - HYPOTHYROIDISM, UNSPECIFIED Qualifiers: Hypothyroidism type: unspecified Qualified Code(s): E03.9 - Hypothyroidism , unspecified Assessment/Plan 07/21/2016 Echo: Moderate dilated with mild-mod decreased LV fxn, pacer RV, mild LAE, mod MR, mild TR 01/08/[address]: Mod bilateral effusions R>L 08/01/[address]: Mod bilateral effusions R>L, small pericardial effusions 08/02/2018 Echo: Mild-mod decreased LVEF 40-45%, normal RV size and fxn, mild LAE, mild MR, tr TR, [place], [place]. No pericardial effusion 1. 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 Acute on CKD with h/o hyperkalemia and hyponatremia 3. CAD post CABG, angina pectoris 4. HTN 5. NIDDM 6. Hypercholesterolemia 7. 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 Carotid stenosis 9. Hypothyroidism 10. PAD post [employer] and amputation (TMA) 11. Anemia post transfusion 12. BPH with hematuria cleared PLAN: 1. IV diuresis with monitor diureric response, renal fxn and electrolytes, may need to decrease if renal fxn decreases 2. Continue ASA 81 qd, carvedilol 3.125 bid, losartan 12.5 qd as hemodynamics permit, Crestor 10 qhs 3. PT for gait training, continue flomax and proscar 4. Empiric abx per C&S 5. DVT and GI prophylaxis
[2019-02-24] MEDS: NYSTATIN/TRIAMCINOLONE TOPICAL CREAM 15 GM TUBE TP SCH ×2 (12:03→21:56)
--- NOTE | 2019-02-24 14:56 | PN ---
Progress Note, Physician History of Present Illness: Pt's is at bedside. Pt c/o diarrhea few times since last night, has abd discomfort occasionally. Pt w/o SOB, CP, palp, nausea, vomiting. Pt c/o "bump" on he side of right leg; he states that few days ago had a blister there, developed after he hit his leg (last week). Pt w/o leg pain. - Current Medication List Current Medications: Active Medications Ascorbic Acid (Vitamin C -) 500 mg PO DAILY [facility] Last Admin: 02/24/19 09:25 Dose: 500 mg Aspirin (Asa -) 81 mg PO DAILY [facility] Last Admin: 02/24/19 09:25 Dose: 81 mg Carbamide Perox/Anhydrous Glycerin (Debrox -) 10 drop AD BID [facility] Last Admin: 02/24/19 09:27 Dose: 10 drop Carvedilol (Coreg -) 3.125 mg PO BID [facility] Last Admin: 02/24/19 09:25 Dose: 3.125 mg Cholecalciferol (Vitamin D3 -) 2,000 unit PO DAILY [facility] Last Admin: 02/24/19 09:25 Dose: 2,000 unit Finasteride (Proscar -) 5 mg PO DAILY [facility] Last Admin: 02/24/19 09:25 Dose: 5 mg Folic Acid (Folic Acid -) 1 mg PO DAILY [facility] Last Admin: 02/24/19 09:26 Dose: 1 mg Furosemide (Lasix Injection -) 40 mg IVPUSH DAILY [facility] Last Admin: 02/24/19 09:26 Dose: 40 mg Heparin Sodium (Porcine) (Heparin -) 5,000 unit SQ BID [facility] Last Admin: 02/24/19 09:26 Dose: 5,000 unit Ceftriaxone Sodium 1 gm/ (Dextrose) 50 mls @ 100 mls/hr IVPB DAILY [facility] Last Admin: 02/24/19 09:26 Dose: 100 mls/hr Insulin Detemir (Levemir Vial) 10 units SQ HS [facility] Last Admin: 02/23/19 21:19 Dose: Not Given Levothyroxine Sodium (Synthroid -) 75 mcg PO 0700 [facility] Last Admin: 02/24/19 06:21 Dose: 75 mcg Losartan Potassium (Cozaar -) 12.5 mg PO DAILY [facility] Last Admin: 02/24/19 09:25 Dose: 12.5 mg Nystatin/Triamcinolone Acetonide (Mycolog Ii Cream -) 1 applic TP BID [facility]; Protocol Stop: 03/09/19 12:14 Last Admin: 02/24/19 12:03 Dose: 1 applic Pregabalin (Lyrica -) 50 mg PO [facility] Last Admin: 02/23/19 21:19 Dose: Not Given Ranitidine HCl (Zantac -) 150 mg PO [facility] Last Admin: 02/23/19 21:20 Dose: Not Given Rosuvastatin Calcium (Crestor -) 10 mg PO [facility] Last Admin: 02/23/19 21:19 Dose: Not Given Tamsulosin HCl (Flomax -) 0.4 mg PO [facility] Last Admin: 02/23/19 21:19 Dose: Not Given - Objective Vital Signs: Vital Signs Temperature 97.9 F 02/24/19 14:08 Pulse Rate 73 02/24/19 14:08 Respiratory Rate 20 02/24/19 14:08 Blood Pressure 128/59 L 02/24/19 14:08 O2 Sat by Pulse Oximetry (%) 98 02/24/19 09:00 Constitutional: Yes: No Distress, Calm Cardiovascular: Yes: Regular Rate and Rhythm, S1, S2 Respiratory: Yes: Regular, Other (coarse BS at both bases) Gastrointestinal: Yes: Normal Bowel Sounds, Soft. No: Tenderness Extremities: Yes: Other (Right leg: healing linear bruise, oblique old scar, with 3 X 1.5 cm swelling, soft, minimal discomfort with palpation mass above the scar , no calor, no erythema) Edema: LLE: 1+, RLE: 1+ Neurological: Yes: Alert, Oriented Labs: CBC, BMP 02/24/19 05:55 02/24/19 05:55 Problem List - Problems (1) Acute on chronic systolic (congestive) heart failure Code(s): I50.23 - ACUTE ON CHRONIC SYSTOLIC (CONGESTIVE) HEART FAILURE (2) Urinary tract infection Code(s): N39.0 - URINARY TRACT INFECTION, SITE NOT SPECIFIED (3) Anemia Code(s): D64.9 - ANEMIA, UNSPECIFIED Qualifiers: (4) CAD (coronary artery disease) Code(s): I25.10 - ATHSCL HEART DISEASE OF [place] CORONARY ARTERY W/O ANG PCTRS Qualifiers: Coronary Disease-Associated Artery/Lesion type: [place] artery [place] vs. transplanted heart: [place] heart Associated angina: without angina Qualified Code(s): I25.10 - Atherosclerotic heart disease of [place] coronary artery without angina pectoris (5) CKD (chronic kidney disease) Code(s): N18.9 - CHRONIC KIDNEY DISEASE, UNSPECIFIED Qualifiers: Chronic kidney disease stage: stage 3 (moderate) Qualified Code(s): N18.3 - Chronic kidney disease, stage 3 (moderate) (6) Diabetes mellitus Code(s): E11.9 - TYPE 2 DIABETES MELLITUS WITHOUT COMPLICATIONS Qualifiers: Diabetes mellitus type: type 2 Chronic kidney disease stage: stage 2 (mild ) (7) [place] (hard of hearing) Code(s): H91.90 - UNSPECIFIED HEARING LOSS, UNSPECIFIED EAR (8) Diarrhea Code(s): R19.7 - [place], UNSPECIFIED Assessment/Plan IV lasix IV abtx Monitor elecrolytes Monitor H/ H Trial of Debrox To monitor R leg swelling and mass (possible small hematoma); trial of warm compress. Send stool for C diff AM Labs Pt's condition was d/w his nurse.
[2019-02-24] MEDS: TAMSULOSIN HCL 0.4 MG CAP PO SCH (21:48)
[2019-02-24] MEDS: PREGABALIN 50 MG CAPSULE PO SCH (21:48)
[2019-02-24] MEDS: ROSUVASTATIN CA 10 MG TABLET (FP) PO SCH (21:48)
[2019-02-24] MEDS: RANITIDINE HCL 150 MG TABLET (FP) PO SCH (21:49)
[2019-02-24] MEDS: INSULIN (LEVEMIR) 100 UNITS/ML UNITS SQ SCH ×2 (21:51→21:54)
[2019-02-25] MEDS: LEVOTHYROXINE NA 75 MCG TABLET (FP) PO SCH (06:53)
[2019-02-25 08:41] LABS: ALBUMIN 2.8 g/dl (3.4-5.0); BILIRUBIN,TOTAL 0.4 mg/dL (0.2-1); BLOOD UREA NITROGEN 55.5 mg/dL (7-18); CALCIUM 8.5 mg/dL (8.5-10.1); CREATININE 1.5 mg/dL (0.55-1.3); POTASSIUM 3.8 mmol/L (3.5-5.1); TOT PROT 6.5 g/dl (6.4-8.2)
[2019-02-25] MEDS ORDERED: cefTRIAXone SODIUM 1 GM VIAL ONE (09:00)
[2019-02-25] MEDS ORDERED: DEXTROSE 5%-WATER - 50 ML IVPB ONE (09:00)
[2019-02-25 09:11] LABS: MCH 34.5 pg (25.7-33.7); MCHC 34.7 g/dl (32.0-35.9); MEAN CELL VOLUME 99.5 fl (80-96); MEAN PLT VOLUME 9.2 fl (7.5-11.1); PLATELET COUNT 107 K/MM3 (134-434); RBC 2.62 M/mm3 (4.00-5.60); RDW 15.4 % (11.9-15.9); WHITE BLOOD COUNT 4.4 K/mm3 (4.0-10.0)
[2019-02-25] MEDS: LOSARTAN POTASSIUM 25 MG TABLET PO SCH (09:47)
[2019-02-25] MEDS: CARVEDILOL 3.125 MG TABLET (FP) PO SCH ×2 (09:47→21:53)
[2019-02-25] MEDS: CHOLECALCIFEROL (VIT D3) 1,000 UNIT (25 MCG) TABLET PO SCH (09:47)
[2019-02-25] MEDS: FINASTERIDE 5 MG TABLET (FP) PO SCH (09:47)
[2019-02-25] MEDS: ASPIRIN 81 MG CHEWABLE TABLETS PO SCH (09:47)
[2019-02-25] MEDS: FUROSEMIDE 40 MG/4 ML INJECTABLE VIAL IVPUSH SCH (09:47)
[2019-02-25] MEDS: HEPARIN NA (PORCINE) 5,000 UNITS/ML 1ML VIAL SQ SCH ×2 (09:48→21:55)
[2019-02-25] MEDS: CEFTRIAXONE 1 GM in DEXTROSE 5%-WATER - 50 ML IVPB SCH (09:48)
[2019-02-25] MEDS: FOLIC ACID 1 MG TABLET (FP) PO SCH (09:48)
[2019-02-25] MEDS: ASCORBIC ACID 500 MG TABLET (FP) PO SCH (09:48)
[2019-02-25] MEDS: CARBAMIDE PEROXIDE 6.5% OTIC 15 ML BOTTLE AD SCH ×2 (09:49→21:57)
[2019-02-25] MEDS: NYSTATIN/TRIAMCINOLONE TOPICAL CREAM 15 GM TUBE TP SCH ×2 (09:49→21:59)
--- NOTE | 2019-02-25 10:05 | PN ---
Progress Note, Physician History of Present Illness: pulmonary alert,feeling better,-resp distress - Current Medication List Current Medications: Active Medications Ascorbic Acid (Vitamin C -) 500 mg PO DAILY [facility] Last Admin: 02/25/19 09:48 Dose: 500 mg Aspirin (Asa -) 81 mg PO DAILY [facility] Last Admin: 02/25/19 09:47 Dose: 81 mg Carbamide Perox/Anhydrous Glycerin (Debrox -) 10 drop AD BID [facility] Last Admin: 02/25/19 09:49 Dose: 10 drop Carvedilol (Coreg -) 3.125 mg PO BID [facility] Last Admin: 02/25/19 09:47 Dose: 3.125 mg Cholecalciferol (Vitamin D3 -) 2,000 unit PO DAILY [facility] Last Admin: 02/25/19 09:47 Dose: 2,000 unit Finasteride (Proscar -) 5 mg PO DAILY [facility] Last Admin: 02/25/19 09:47 Dose: 5 mg Folic Acid (Folic Acid -) 1 mg PO DAILY [facility] Last Admin: 02/25/19 09:48 Dose: 1 mg Furosemide (Lasix Injection -) 40 mg IVPUSH DAILY [facility] Last Admin: 02/25/19 09:47 Dose: 40 mg Heparin Sodium (Porcine) (Heparin -) 5,000 unit SQ BID [facility] Last Admin: 02/25/19 09:48 Dose: 5,000 unit Ceftriaxone Sodium 1 gm/ (Dextrose) 50 mls @ 100 mls/hr IVPB DAILY [facility] Last Admin: 02/25/19 09:48 Dose: 100 mls/hr Insulin Detemir (Levemir Vial) 10 units SQ HS [facility] Last Admin: 02/24/19 21:54 Dose: Not Given Levothyroxine Sodium (Synthroid -) 75 mcg PO 0700 [facility] Last Admin: 02/25/19 06:53 Dose: 75 mcg Losartan Potassium (Cozaar -) 12.5 mg PO DAILY [facility] Last Admin: 02/25/19 09:47 Dose: 12.5 mg Nystatin/Triamcinolone Acetonide (Mycolog Ii Cream -) 1 applic TP BID [facility]; Protocol Stop: 03/09/19 12:14 Last Admin: 02/25/19 09:49 Dose: 1 applic Pregabalin (Lyrica -) 50 mg PO HS [facility] Last Admin: 02/24/19 21:48 Dose: 50 mg Ranitidine HCl (Zantac -) 150 mg PO [facility] Last Admin: 02/24/19 21:49 Dose: 150 mg Rosuvastatin Calcium (Crestor -) 10 mg PO [facility] Last Admin: 02/24/19 21:48 Dose: 10 mg Tamsulosin HCl (Flomax -) 0.4 mg PO [facility] Last Admin: 02/24/19 21:48 Dose: 0.4 mg - Objective Vital Signs: Vital Signs Temperature 97.4 F L 02/25/19 05:26 Pulse Rate 67 02/25/19 05:26 Respiratory Rate 20 02/25/19 05:26 Blood Pressure 124/60 02/25/19 05:26 O2 Sat by Pulse Oximetry (%) 100 02/24/19 21:00 Constitutional: Yes: Well Nourished, Calm Eyes: Yes: WNL HENT: Yes: WNL Neck: Yes: WNL Cardiovascular: Yes: Regular Rate and Rhythm, S1, S2 Respiratory: Yes: CTA Bilaterally, Diminished Gastrointestinal: Yes: Normal Bowel Sounds, Soft Extremities: Yes: WNL Edema: Yes Labs: CBC, BMP 02/25/19 05:39 02/25/19 05:39 Problem List - Problems (1) Urinary tract infection Code(s): N39.0 - URINARY TRACT INFECTION, SITE NOT SPECIFIED (2) ASHD (arteriosclerotic heart disease) Code(s): I25.10 - ATHSCL HEART DISEASE OF [place] CORONARY ARTERY W/O ANG PCTRS (3) Anemia Code(s): D64.9 - ANEMIA, UNSPECIFIED Qualifiers: (4) CAD (coronary artery disease) Code(s): I25.10 - ATHSCL HEART DISEASE OF [place] CORONARY ARTERY W/O ANG PCTRS Qualifiers: Coronary Disease-Associated Artery/Lesion type: [place] artery [place] vs. transplanted heart: [place] heart Associated angina: without angina Qualified Code(s): I25.10 - Atherosclerotic heart disease of [place] coronary artery without angina pectoris (5) CKD (chronic kidney disease) Code(s): N18.9 - CHRONIC KIDNEY DISEASE, UNSPECIFIED (6) COPD (chronic obstructive pulmonary disease) Code(s): J44.9 - CHRONIC OBSTRUCTIVE PULMONARY DISEASE, UNSPECIFIED Qualifiers: COPD type: chronic bronchitis Assessment/Plan A/P Acute on Chronic Systolic/Diastolic Heart Failure improving CAD s/p CABG CKD HTN DM Carotid Stenosis PAD Anemia UTI - lasix - monitor urine output, creatinine - daily weights - O2 to keep SpO2 >90% - antibiotics - DVT prophylaxis Problem List - Problems (1) Acute on chronic systolic (congestive) heart failure Code(s): I50.23 - ACUTE ON CHRONIC SYSTOLIC (CONGESTIVE) HEART FAILURE (2) Urinary tract infection Code(s): N39.0 - URINARY TRACT INFECTION, SITE NOT SPECIFIED
--- NOTE | 2019-02-25 10:43 | PN ---
Progress Note, Physician History of Present Illness: Weakness, dyspnea, cough and bilateral lower extremity edema improving with diuresis, reports chills. - Current Medication List Current Medications: Active Medications Ascorbic Acid (Vitamin C -) 500 mg PO DAILY [facility] Last Admin: 02/25/19 09:48 Dose: 500 mg Aspirin (Asa -) 81 mg PO DAILY [facility] Last Admin: 02/25/19 09:47 Dose: 81 mg Carbamide Perox/Anhydrous Glycerin (Debrox -) 10 drop AD BID [facility] Last Admin: 02/25/19 09:49 Dose: 10 drop Carvedilol (Coreg -) 3.125 mg PO BID [facility] Last Admin: 02/25/19 09:47 Dose: 3.125 mg Cholecalciferol (Vitamin D3 -) 2,000 unit PO DAILY [facility] Last Admin: 02/25/19 09:47 Dose: 2,000 unit Finasteride (Proscar -) 5 mg PO DAILY [facility] Last Admin: 02/25/19 09:47 Dose: 5 mg Folic Acid (Folic Acid -) 1 mg PO DAILY [facility] Last Admin: 02/25/19 09:48 Dose: 1 mg Furosemide (Lasix Injection -) 40 mg IVPUSH DAILY [facility] Last Admin: 02/25/19 09:47 Dose: 40 mg Heparin Sodium (Porcine) (Heparin -) 5,000 unit SQ BID [facility] Last Admin: 02/25/19 09:48 Dose: 5,000 unit Ceftriaxone Sodium 1 gm/ (Dextrose) 50 mls @ 100 mls/hr IVPB DAILY [facility] Last Admin: 02/25/19 09:48 Dose: 100 mls/hr Insulin Detemir (Levemir Vial) 10 units SQ [facility] Last Admin: 02/24/19 21:54 Dose: Not Given Levothyroxine Sodium (Synthroid -) 75 mcg PO 0700 [facility] Last Admin: 02/25/19 06:53 Dose: 75 mcg Losartan Potassium (Cozaar -) 12.5 mg PO DAILY [facility] Last Admin: 02/25/19 09:47 Dose: 12.5 mg Nystatin/Triamcinolone Acetonide (Mycolog Ii Cream -) 1 applic TP BID [facility]; Protocol Stop: 03/09/19 12:14 Last Admin: 02/25/19 09:49 Dose: 1 applic Pregabalin (Lyrica -) 50 mg PO HS [facility] Last Admin: 02/24/19 21:48 Dose: 50 mg Ranitidine HCl (Zantac -) 150 mg PO [facility] Last Admin: 02/24/19 21:49 Dose: 150 mg Rosuvastatin Calcium (Crestor -) 10 mg PO [facility] Last Admin: 02/24/19 21:48 Dose: 10 mg Tamsulosin HCl (Flomax -) 0.4 mg PO [facility] Last Admin: 02/24/19 21:48 Dose: 0.4 mg - Objective Vital Signs: Vital Signs Temperature 97.4 F L 02/25/19 05:26 Pulse Rate 67 02/25/19 05:26 Respiratory Rate 20 02/25/19 05:26 Blood Pressure 124/60 02/25/19 05:26 O2 Sat by Pulse Oximetry (%) 100 02/24/19 21:00 Constitutional: Yes: No Distress, Calm, Thin Neck: Yes: Supple Cardiovascular: Yes: Regular Rate and Rhythm Respiratory: Yes: Regular, Diminished Gastrointestinal: Yes: Normal Bowel Sounds, Soft Edema: Yes Labs: CBC, BMP 02/25/19 05:39 02/25/19 05:39 - ....Imaging Chest X-ray: Report Reviewed (R>L effusion) Problem List - Problems (1) Acute on chronic systolic (congestive) heart failure Code(s): I50.23 - ACUTE ON CHRONIC SYSTOLIC (CONGESTIVE) HEART FAILURE (2) CKD (chronic kidney disease) Code(s): N18.9 - CHRONIC KIDNEY DISEASE, UNSPECIFIED Qualifiers: Chronic kidney disease stage: stage 3 (moderate) Qualified Code(s): N18.3 - Chronic kidney disease, stage 3 (moderate) (3) HTN (hypertension) Code(s): I10 - ESSENTIAL (PRIMARY) HYPERTENSION Qualifiers: Hypertension type: essential hypertension Qualified Code(s): I10 - Essential (primary) hypertension (4) History of implantable cardiac defibrillator (ICD) Code(s): [id number] - (5) Hx of CABG Code(s): Z95.1 - PRESENCE OF AORTOCORONARY BYPASS GRAFT (6) Hypercholesterolemia Code(s): E78.0 - PURE HYPERCHOLESTEROLEMIA * DO NOT USE * (7) Peripheral arterial disease Code(s): I73.9 - PERIPHERAL VASCULAR DISEASE, UNSPECIFIED (8) Hypothyroidism Code(s): E03.9 - HYPOTHYROIDISM, UNSPECIFIED Qualifiers: Hypothyroidism type: unspecified Qualified Code(s): E03.9 - Hypothyroidism , unspecified Assessment/Plan 07/21/2016 Echo: Moderate dilated with mild-mod decreased LV fxn, pacer RV, mild LAE, mod MR, mild TR 01/08/[address]: Mod bilateral effusions R>L 08/01/[address]: Mod bilateral effusions R>L, small pericardial effusions 08/02/2018 Echo: Mild-mod decreased LVEF 40-45%, normal RV size and fxn, mild LAE, mild MR, tr TR, [place], [place]. No pericardial effusion 1. 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 Acute on CKD with h/o hyperkalemia and hyponatremia 3. CAD post CABG, angina pectoris 4. HTN 5. NIDDM 6. Hypercholesterolemia 7. 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 Carotid stenosis 9. Hypothyroidism 10. PAD post [place] [place] and amputation (TMA) 11. Anemia post transfusion 12. BPH with UTI PLAN: 1. Decrease oral diuresis with monitor diureric response, renal fxn and electrolytes 2. Continue ASA 81 qd, carvedilol 3.125 bid, losartan 12.5 qd as hemodynamics permit, Crestor 10 qhs 3. PT for gait training, continue flomax and proscar 4. Empiric abx per C&S 5. DVT and GI prophylaxis
--- NOTE | 2019-02-25 17:32 | PN ---
Progress Note, Physician History of Present Illness: in bed NAD VSS afebrile less SOB LESS COUGH chest CT 3 months ago possible endobronchial lesion vs mucus plug, will repeat chest CT - Current Medication List Current Medications: Active Medications Ascorbic Acid (Vitamin C -) 500 mg PO DAILY [facility] Last Admin: 02/25/19 09:48 Dose: 500 mg Aspirin (Asa -) 81 mg PO DAILY [facility] Last Admin: 02/25/19 09:47 Dose: 81 mg Carbamide Perox/Anhydrous Glycerin (Debrox -) 10 drop AD BID [facility] Last Admin: 02/25/19 09:49 Dose: 10 drop Carvedilol (Coreg -) 3.125 mg PO BID [facility] Last Admin: 02/25/19 09:47 Dose: 3.125 mg Cholecalciferol (Vitamin D3 -) 2,000 unit PO DAILY [facility] Last Admin: 02/25/19 09:47 Dose: 2,000 unit Finasteride (Proscar -) 5 mg PO DAILY [facility] Last Admin: 02/25/19 09:47 Dose: 5 mg Folic Acid (Folic Acid -) 1 mg PO DAILY [facility] Last Admin: 02/25/19 09:48 Dose: 1 mg Furosemide (Lasix -) 20 mg PO DAILY [facility] Heparin Sodium (Porcine) (Heparin -) 5,000 unit SQ BID [facility] Last Admin: 02/25/19 09:48 Dose: 5,000 unit Ceftriaxone Sodium 1 gm/ (Dextrose) 50 mls @ 100 mls/hr IVPB DAILY [facility] Last Admin: 02/25/19 09:48 Dose: 100 mls/hr Insulin Detemir (Levemir Vial) 10 units SQ HS [facility] Last Admin: 02/24/19 21:54 Dose: Not Given Levothyroxine Sodium (Synthroid -) 75 mcg PO 0700 [facility] Last Admin: 02/25/19 06:53 Dose: 75 mcg Losartan Potassium (Cozaar -) 12.5 mg PO DAILY [facility] Last Admin: 02/25/19 09:47 Dose: 12.5 mg Nystatin/Triamcinolone Acetonide (Mycolog Ii Cream -) 1 applic TP BID [facility]; Protocol Stop: 03/09/19 12:14 Last Admin: 02/25/19 09:49 Dose: 1 applic Pregabalin (Lyrica -) 50 mg PO HS [facility] Last Admin: 02/24/19 21:48 Dose: 50 mg Ranitidine HCl (Zantac -) 150 mg PO [facility] Last Admin: 02/24/19 21:49 Dose: 150 mg Rosuvastatin Calcium (Crestor -) 10 mg PO [facility] Last Admin: 02/24/19 21:48 Dose: 10 mg Tamsulosin HCl (Flomax -) 0.4 mg PO [facility] Last Admin: 02/24/19 21:48 Dose: 0.4 mg - Objective Vital Signs: Vital Signs Temperature 97.5 F L 02/25/19 14:00 Pulse Rate 71 02/25/19 14:00 Respiratory Rate 20 02/25/19 14:00 Blood Pressure 117/34 L 02/25/19 14:00 O2 Sat by Pulse Oximetry (%) 99 02/25/19 09:00 Constitutional: Yes: No Distress, Calm Eyes: Yes: Conjunctiva Clear HENT: Yes: Atraumatic Neck: Yes: Supple Cardiovascular: Yes: Regular Rate and Rhythm Respiratory: Yes: Diminished Gastrointestinal: Yes: Soft. No: Tenderness Genitourinary: No: CVA Tenderness - Left, CVA Tenderness - Right Musculoskeletal: No: Joint Stiffness, Joint Swelling Extremities: No: Cold, Cool Edema: Yes (less) Integumentary: No: Rash, Venous Stasis Changes Neurological: Yes: WNL, Alert, Oriented ...Motor Strength: WNL Psychiatric: Yes: WNL, Alert, Oriented. 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
[2019-02-25] MEDS: PREGABALIN 50 MG CAPSULE PO SCH (21:53)
[2019-02-25] MEDS: TAMSULOSIN HCL 0.4 MG CAP PO SCH (21:53)
[2019-02-25] MEDS: ROSUVASTATIN CA 10 MG TABLET (FP) PO SCH (21:53)
[2019-02-25] MEDS: RANITIDINE HCL 150 MG TABLET (FP) PO SCH (21:54)
[2019-02-25] MEDS: INSULIN (LEVEMIR) 100 UNITS/ML UNITS SQ SCH (22:03)
[2019-02-26] MEDS: LEVOTHYROXINE NA 75 MCG TABLET (FP) PO SCH (06:15)
--- NOTE | 2019-02-26 07:28 | DS ---
Physical Examination Vital Signs: Vital Signs Temperature 97.8 F 02/26/19 06:00 Pulse Rate 62 02/26/19 06:00 Respiratory Rate 17 02/26/19 06:00 Blood Pressure 97/48 L 02/26/19 06:00 O2 Sat by Pulse Oximetry (%) 100 02/25/19 21:00 Findings/Remarks: in bed NAD feels well no c/o; pt wants to go home, he does not want PT rehab; has home O2; will have VNS and home PT chest CT R lung / bronchus nodularity no change from before; d/w dr Stephens no intervention now, f/u in office; I d/w pt's this; f/u CT in 203 months r/o malignancy; she does not want any aggressive tx even if malignancy and she was looking into hospice but she does not think he is "at that point yet" also pleural effusions on CT; is on lasix, BP borderline low; diuresed OK; no SOB; has home O2; d/w cardio dr Garcia can DC home on po lasix and f/u in office in few weeks; d/w this d/w CM to have home VNS home PT; has home O2; d/w all the above; she wants him to go home but not sure she could take him today, needs to have "everything in place" for him; she will d/w CM. t time 50 min Constitutional: Yes: No Distress, Calm Eyes: Yes: Conjunctiva Clear HENT: Yes: Atraumatic Neck: Yes: Supple Cardiovascular: Yes: Regular Rate and Rhythm Respiratory: Yes: Diminished Gastrointestinal: Yes: Soft. No: Tenderness Renal/: No: Hematuria Musculoskeletal: No: Joint Stiffness, Joint Swelling Extremities: No: Cold, Cool Edema: No Integumentary: No: Rash, Venous Stasis Changes Neurological: Yes: WNL, Alert, Oriented ...Motor Strength: WNL Psychiatric: Yes: WNL, Alert, Oriented. No: Agitated, Suicidal Ideation Labs: CBC, BMP 02/25/19 05:39 02/25/19 05:39 Discharge Summary Reason For Visit: UTI/DYSPNEA/ACUTE NONTRAUMATIC KIDNEY INJURY/PNEUM Current Active Problems Acute on chronic systolic (congestive) heart failure (Acute) Diarrhea (Acute) [place] (hard of hearing) (Acute) Pneumonia (Acute) Urinary tract infection (Acute) Procedures: Principal: 88 YOM ASHD diastolic CHF COPD O2 dep, BPH, anemia CRF admitted with SOB CHF exac, UTI Other Procedures: admitted to telemetry; seen by cardiology and pulmonary; tx with IV lasix and IV antibiotics; chest CT done see above, needs outpt f/u; UCx c/w UTI tx with IV ATB improved; Hospital Course: improved with above; pt refused SNF; DC home with VNS, home PT; f/u as advised. Condition: Improved - Instructions Diet, Activity, Other Instructions: f/u PCP, cardiology and pulmonary in 1-2 weeks after DC home; f/u chest CT no ivc in 2-3 months; take meds as prescribed; LS ADA diet; f/u renal, and labs periodically; f/u heme dr Prabhakar for anemia and low PLT; home O2, home VNS and home PT; RTER if worse or recurrent c/o Referrals: Manas Stephens MD [Staff Physician] - Shaun Nunez MD [Staff Physician] - Fransisco Garcia MD [Staff Physician] - Latanya Kirk MD [Staff Physician] - Jose Manuel Prabhakar MD [Staff Physician] - Oscar Madrid MD [Staff Physician] - Disposition: VNS/HOME HEALTH CARE - Home Medications Comprehensive Discharge Medication List: Ambulatory Orders Ascorbate Calcium [Vitamin C] 500 mg PO DAILY 01/20/14 Aspirin [ASA -] 81 mg PO DAILY 01/20/14 Carvedilol 3.125 mg PO BID 01/20/14 Folic Acid - 1 mg PO DAILY 01/20/14 Pregabalin [Lyrica -] 50 mg PO HS 01/20/14 Ranitidine HCl [Zantac] 150 mg PO HS 01/20/14 Tamsulosin HCl [Flomax -] 0.4 mg PO HS 01/20/14 Levothyroxine [Synthroid -] 75 mcg PO DAILY 07/21/16 Ergocalciferol (Vitamin D2) [Vitamin D2] 2,000 unit PO DAILY 06/09/17 Furosemide [Lasix -] 20 mg PO DAILY 06/09/17 Insulin Glargine,Hum.rec.anlog [Lantus (10mL VIAL) -] 10 units SQ HS 06/09/17 Multivit-Min/FA/Lycopen/Lutein [Centrum Silver Tablet] 1 tab PO DAILY 06/09/17 Rosuvastatin Calcium 10 mg PO HS 06/09/17 Finasteride [Proscar -] 5 mg PO DAILY tablet 01/13/19
[2019-02-26] MEDS: ASPIRIN 81 MG CHEWABLE TABLETS PO SCH (09:16)
[2019-02-26] MEDS: CARBAMIDE PEROXIDE 6.5% OTIC 15 ML BOTTLE AD SCH ×2 (09:16→22:06)
[2019-02-26] MEDS: CARVEDILOL 3.125 MG TABLET (FP) PO SCH ×2 (09:16→22:00)
[2019-02-26] MEDS: LOSARTAN POTASSIUM 25 MG TABLET PO SCH (09:16)
[2019-02-26] MEDS: FOLIC ACID 1 MG TABLET (FP) PO SCH (09:17)
[2019-02-26] MEDS: FUROSEMIDE 20 MG TABLET (FP) PO SCH (09:17)
[2019-02-26] MEDS: HEPARIN NA (PORCINE) 5,000 UNITS/ML 1ML VIAL SQ SCH ×2 (09:17→22:00)
[2019-02-26] MEDS: FINASTERIDE 5 MG TABLET (FP) PO SCH (09:18)
[2019-02-26] MEDS: CEFTRIAXONE 1 GM in DEXTROSE 5%-WATER - 50 ML IVPB SCH (09:18)
[2019-02-26] MEDS: NYSTATIN/TRIAMCINOLONE TOPICAL CREAM 15 GM TUBE TP SCH ×2 (09:18→22:06)
[2019-02-26] MEDS ORDERED: PT OWN MED DRAWER 7, Y5N ONE (09:24)
[2019-02-26] MEDS ORDERED: cefTRIAXone SODIUM 1 GM VIAL ONE (09:26)
[2019-02-26] MEDS ORDERED: DEXTROSE 5%-WATER - 50 ML IVPB ONE (09:26)
--- NOTE | 2019-02-26 09:58 | PN ---
Progress Note, Physician History of Present Illness: pulmonary alert,oob-chair,-sob,-cp - Current Medication List Current Medications: Active Medications Ascorbic Acid (Vitamin C -) 500 mg PO DAILY [facility] Last Admin: 02/25/19 09:48 Dose: 500 mg Aspirin (Asa -) 81 mg PO DAILY [facility] Last Admin: 02/25/19 09:47 Dose: 81 mg Carbamide Perox/Anhydrous Glycerin (Debrox -) 10 drop AD BID [facility] Last Admin: 02/25/19 21:57 Dose: 10 drop Carvedilol (Coreg -) 3.125 mg PO BID [facility] Cholecalciferol (Vitamin D3 -) 2,000 unit PO DAILY [facility] Last Admin: 02/25/19 09:47 Dose: 2,000 unit Finasteride (Proscar -) 5 mg PO DAILY [facility] Last Admin: 02/25/19 09:47 Dose: 5 mg Folic Acid (Folic Acid -) 1 mg PO DAILY [facility] Last Admin: 02/25/19 09:48 Dose: 1 mg Furosemide (Lasix -) 20 mg PO DAILY [facility] Heparin Sodium (Porcine) (Heparin -) 5,000 unit SQ BID [facility] Last Admin: 02/25/19 21:55 Dose: 5,000 unit Ceftriaxone Sodium 1 gm/ (Dextrose) 50 mls @ 100 mls/hr IVPB DAILY [facility] Last Admin: 02/25/19 09:48 Dose: 100 mls/hr Insulin Detemir (Levemir Vial) 10 units SQ HS [facility] Last Admin: 02/25/19 22:03 Dose: 10 unit Levothyroxine Sodium (Synthroid -) 75 mcg PO 0700 [facility] Last Admin: 02/26/19 06:15 Dose: 75 mcg Losartan Potassium (Cozaar -) 12.5 mg PO DAILY [facility] Last Admin: 02/25/19 09:47 Dose: 12.5 mg Nystatin/Triamcinolone Acetonide (Mycolog Ii Cream -) 1 applic TP BID [facility]; Protocol Stop: 03/09/19 12:14 Last Admin: 02/25/19 21:59 Dose: 1 applic Pregabalin (Lyrica -) 50 mg PO HS [facility] Last Admin: 02/25/19 21:53 Dose: 50 mg Ranitidine HCl (Zantac -) 150 mg PO [facility] Last Admin: 02/25/19 21:54 Dose: 150 mg Rosuvastatin Calcium (Crestor -) 10 mg PO [facility] Last Admin: 02/25/19 21:53 Dose: 10 mg Tamsulosin HCl (Flomax -) 0.4 mg PO [facility] Last Admin: 02/25/19 21:53 Dose: 0.4 mg - Objective Vital Signs: Vital Signs Temperature 97.8 F 02/26/19 06:00 Pulse Rate 62 02/26/19 06:00 Respiratory Rate 17 02/26/19 06:00 Blood Pressure 97/48 L 02/26/19 06:00 O2 Sat by Pulse Oximetry (%) 100 02/25/19 21:00 Constitutional: Yes: Well Nourished, Calm Eyes: Yes: WNL HENT: Yes: WNL Neck: Yes: WNL Cardiovascular: Yes: Regular Rate and Rhythm, S1, S2 Respiratory: Yes: Diminished Gastrointestinal: Yes: Normal Bowel Sounds, Soft Extremities: Yes: Amputation (partial amputation left foot) Edema: No Labs: CBC, BMP 02/25/19 05:39 02/25/19 05:39 - ....Imaging Cat Scan: Image Reviewed (cardiomegaly,bilateral pleural effusion r> l) Problem List - Problems (1) Urinary tract infection Code(s): N39.0 - URINARY TRACT INFECTION, SITE NOT SPECIFIED (2) ASHD (arteriosclerotic heart disease) Code(s): I25.10 - ATHSCL HEART DISEASE OF [place] CORONARY ARTERY W/O ANG PCTRS (3) Anemia Code(s): D64.9 - ANEMIA, UNSPECIFIED Qualifiers: (4) CAD (coronary artery disease) Code(s): I25.10 - ATHSCL HEART DISEASE OF [place] CORONARY ARTERY W/O ANG PCTRS Qualifiers: Coronary Disease-Associated Artery/Lesion type: [place] artery [place] vs. transplanted heart: [place] heart Associated angina: without angina Qualified Code(s): I25.10 - Atherosclerotic heart disease of [place] coronary artery without angina pectoris (5) CKD (chronic kidney disease) Code(s): N18.9 - CHRONIC KIDNEY DISEASE, UNSPECIFIED (6) COPD (chronic obstructive pulmonary disease) Code(s): J44.9 - CHRONIC OBSTRUCTIVE PULMONARY DISEASE, UNSPECIFIED Qualifiers: COPD type: chronic bronchitis Assessment/Plan A/P Acute on Chronic Systolic/Diastolic Heart Failure improving CAD s/p CABG CKD HTN DM Carotid Stenosis PAD Anemia UTI - lasix - monitor urine output, creatinine - daily weights - O2 to keep SpO2 >90% - antibiotics - DVT prophylaxis Problem List - Problems (1) Acute on chronic systolic (congestive) heart failure Code(s): I50.23 - ACUTE ON CHRONIC SYSTOLIC (CONGESTIVE) HEART FAILURE (2) Urinary tract infection Code(s): N39.0 - URINARY TRACT INFECTION, SITE NOT SPECIFIED
[2019-02-26] MEDS: CHOLECALCIFEROL (VIT D3) 1,000 UNIT (25 MCG) TABLET PO SCH (10:19)
[2019-02-26] MEDS: ASCORBIC ACID 500 MG TABLET (FP) PO SCH (10:19)
--- NOTE | 2019-02-26 12:12 | PN ---
Progress Note, Physician Chief Complaint: Events noted Receiving physical therapy Ambulating with walker History of Present Illness: Patient was seen and examined. Awake and alert. Chart was reviewed Denies chest pain, SOB or palpitations - Current Medication List Current Medications: Active Medications Ascorbic Acid (Vitamin C -) 500 mg PO DAILY [facility] Last Admin: 02/25/19 09:48 Dose: 500 mg Aspirin (Asa -) 81 mg PO DAILY [facility] Last Admin: 02/25/19 09:47 Dose: 81 mg Carbamide Perox/Anhydrous Glycerin (Debrox -) 10 drop AD BID [facility] Last Admin: 02/25/19 21:57 Dose: 10 drop Carvedilol (Coreg -) 3.125 mg PO BID [facility] Cholecalciferol (Vitamin D3 -) 2,000 unit PO DAILY [facility] Last Admin: 02/25/19 09:47 Dose: 2,000 unit Finasteride (Proscar -) 5 mg PO DAILY [facility] Last Admin: 02/25/19 09:47 Dose: 5 mg Folic Acid (Folic Acid -) 1 mg PO DAILY [facility] Last Admin: 02/25/19 09:48 Dose: 1 mg Furosemide (Lasix -) 20 mg PO DAILY [facility] Heparin Sodium (Porcine) (Heparin -) 5,000 unit SQ BID [facility] Last Admin: 02/25/19 21:55 Dose: 5,000 unit Ceftriaxone Sodium 1 gm/ (Dextrose) 50 mls @ 100 mls/hr IVPB DAILY [facility] Last Admin: 02/25/19 09:48 Dose: 100 mls/hr Insulin Detemir (Levemir Vial) 10 units SQ HS [facility] Last Admin: 02/25/19 22:03 Dose: 10 unit Levothyroxine Sodium (Synthroid -) 75 mcg PO 0700 [facility] Last Admin: 02/26/19 06:15 Dose: 75 mcg Losartan Potassium (Cozaar -) 12.5 mg PO DAILY [facility] Last Admin: 02/25/19 09:47 Dose: 12.5 mg Nystatin/Triamcinolone Acetonide (Mycolog Ii Cream -) 1 applic TP BID [facility]; Protocol Stop: 03/09/19 12:14 Last Admin: 02/25/19 21:59 Dose: 1 applic Pregabalin (Lyrica -) 50 mg PO [facility] Last Admin: 02/25/19 21:53 Dose: 50 mg Ranitidine HCl (Zantac -) 150 mg PO [facility] Last Admin: 02/25/19 21:54 Dose: 150 mg Rosuvastatin Calcium (Crestor -) 10 mg PO [facility] Last Admin: 02/25/19 21:53 Dose: 10 mg Tamsulosin HCl (Flomax -) 0.4 mg PO [facility] Last Admin: 02/25/19 21:53 Dose: 0.4 mg - Objective Vital Signs: Vital Signs Temperature 98.2 F 02/26/19 09:00 Pulse Rate 66 02/26/19 09:00 Respiratory Rate 18 02/26/19 09:00 Blood Pressure 97/42 L 02/26/19 09:00 O2 Sat by Pulse Oximetry (%) 100 02/26/19 09:00 Eyes: Yes: PERRL HENT: Yes: Atraumatic Neck: Yes: Supple Cardiovascular: Yes: Regular Rate and Rhythm, S1, S2 Respiratory: Yes: Diminished Gastrointestinal: Yes: Normal Bowel Sounds, Soft. No: Tenderness Extremities: Yes: Amputation Edema: Yes Additional Findings/Remarks: - Review of Systems Constitutional: (+) Weakness. denies: Chills, Fever Cardiovascular: denies: Palpitations, Shortness of Breath. denies: Chest Pain Respiratory: denies: Cough, denies:Hemoptysis, Orthopnea, PND Gastrointestinal: denies: Abdominal Pain, Constipation, Diarrhea, Melena, Nausea , Rectal Bleeding, Vomiting Genitourinary: denies: Dysuria Neurological: denies: Dizziness, Headache, Seizure, Syncope Labs: CBC, BMP 02/25/19 05:39 02/25/19 05:39 Problem List - Problems (1) Acute on chronic systolic (congestive) heart failure Code(s): I50.23 - ACUTE ON CHRONIC SYSTOLIC (CONGESTIVE) HEART FAILURE (2) ASHD (arteriosclerotic heart disease) Code(s): I25.10 - ATHSCL HEART DISEASE OF [place] CORONARY ARTERY W/O ANG PCTRS (3) Anemia Code(s): D64.9 - ANEMIA, UNSPECIFIED Qualifiers: (4) CAD (coronary artery disease) Code(s): I25.10 - ATHSCL HEART DISEASE OF [place] CORONARY ARTERY W/O ANG PCTRS Qualifiers: Coronary Disease-Associated Artery/Lesion type: [place] artery [place] vs. transplanted heart: [place] heart Associated angina: without angina Qualified Code(s): I25.10 - Atherosclerotic heart disease of [place] coronary artery without angina pectoris (5) CKD (chronic kidney disease) Code(s): N18.9 - CHRONIC KIDNEY DISEASE, UNSPECIFIED Qualifiers: Chronic kidney disease stage: stage 3 (moderate) Qualified Code(s): N18.3 - Chronic kidney disease, stage 3 (moderate) (6) COPD (chronic obstructive pulmonary disease) Code(s): J44.9 - CHRONIC OBSTRUCTIVE PULMONARY DISEASE, UNSPECIFIED Qualifiers: COPD type: chronic bronchitis (7) Carotid artery disease Code(s): I77.9 - DISORDER OF ARTERIES AND ARTERIOLES, UNSPECIFIED Qualifiers: Laterality: unspecified laterality Qualified Code(s): I77.9 - Disorder of arteries and arterioles, unspecified (8) Diabetes mellitus Code(s): E11.9 - TYPE 2 DIABETES MELLITUS WITHOUT COMPLICATIONS Qualifiers: Diabetes mellitus type: type 2 Chronic kidney disease stage: stage 2 (mild ) (9) HTN (hypertension) Code(s): I10 - ESSENTIAL (PRIMARY) HYPERTENSION Qualifiers: Hypertension type: essential hypertension Qualified Code(s): I10 - Essential (primary) hypertension (10) History of implantable cardiac defibrillator (ICD) Code(s): MLX6681 - (11) Hx of CABG Code(s): Z95.1 - PRESENCE OF AORTOCORONARY BYPASS GRAFT (12) Hypercholesterolemia Code(s): E78.0 - PURE HYPERCHOLESTEROLEMIA * DO NOT USE * (13) Peripheral arterial disease Code(s): I73.9 - PERIPHERAL VASCULAR DISEASE, UNSPECIFIED (14) Pleural effusion Code(s): J90 - PLEURAL EFFUSION, NOT ELSEWHERE CLASSIFIED (15) Systolic dysfunction with acute on chronic heart failure Code(s): I50.23 - ACUTE ON CHRONIC SYSTOLIC (CONGESTIVE) HEART FAILURE Assessment/Plan 1. 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 Acute on CKD with h/o hyperkalemia and hyponatremia 3. CAD post CABG, angina pectoris 4. HTN 5. NIDDM 6. Hypercholesterolemia 7. Post ICD (Medtronic) for sustained ventricular tachycardia 8. Carotid stenosis 9. Hypothyroidism 10. 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 Anemia post transfusion 12. BPH with UTI PLAN: 1. PO Furosemide and monitor renal function and electrolytes 2. Continue ASA 81 mg QD, Carvedilol 3.125 mg BID and Losartan 12.5 mg QD as hemodynamics permit. Continue Crestor 10 mg QHS 3. PT for gait training. 4. Empiric antibiotics 5. DVT and GI prophylaxis Discharge planning Follow up in the office Keyon Fair MD
--- NOTE | 2019-02-26 14:13 | PN ---
Progress Note (short form) - Note Progress Note: pt's worried about pt's legs, edema/ PVD; he saw dr Small in the past but will ask to eval pt
[2019-02-26] MEDS: RANITIDINE HCL 150 MG TABLET (FP) PO SCH (21:59)
[2019-02-26] MEDS: INSULIN (LEVEMIR) 100 UNITS/ML UNITS SQ SCH (22:00)
[2019-02-26] MEDS: TAMSULOSIN HCL 0.4 MG CAP PO SCH (22:00)
[2019-02-26] MEDS: ROSUVASTATIN CA 10 MG TABLET (FP) PO SCH (22:00)
[2019-02-26] MEDS: PREGABALIN 50 MG CAPSULE PO SCH (22:00)
[2019-02-27] MEDS: LEVOTHYROXINE NA 75 MCG TABLET (FP) PO SCH (06:22)
--- NOTE | 2019-02-27 08:42 | CONSULT ---
<Lilian Degroot - Last Filed: 02/27/19 09:00> - Consultation REQUESTING PROVIDER: CONSULT REQUEST: We have been asked to surgically evaluate this patient for le edema. PCP: Joie Noonan HISTORY OF PRESENT ILLNESS: 88 y/o M well known to Vascular (Dr Small) w/ PMHx CAD s/p CABG, PCI/stent , LV systolic dysfunction S/P ICD (Medtronic), HTN, IDDM, PAD s/p multiple revascularization and L TMA, recent hospitalization for acute on chronic kidney disease now admitted with le edema. Vascular consulted for evaluation. Pt reports he began having edema a few days ago which progressed leaving him unable to ambulate. Pt denies fevers/chills. Reports some pain in le's R>L due to edema. Reports he was discharged a few weeks ago from rehab where he participated in Physical therapy. At baseline pt lives [place]ome with his . Ambulates around his home with his walker. Is able to complete most adls on his own. PMHx: PSHx: Home Medications Medication Instructions Recorded Ascorbate Calcium [Vitamin C] 500 mg PO DAILY 01/20/14 Aspirin [ASA -] 81 mg PO DAILY 01/20/14 Carvedilol 3.125 mg PO BID 01/20/14 Folic Acid - 1 mg PO DAILY 01/20/14 Pregabalin [Lyrica -] 50 mg PO HS 01/20/14 Ranitidine HCl [Zantac] 150 mg PO HS 01/20/14 Tamsulosin HCl [Flomax -] 0.4 mg PO HS 01/20/14 Levothyroxine [Synthroid -] 75 mcg PO DAILY 07/21/16 Ergocalciferol (Vitamin D2) 2,000 unit PO DAILY 06/09/17 [Vitamin D2] Furosemide [Lasix -] 20 mg PO DAILY 06/09/17 Insulin Glargine,Hum.rec.anlog 10 units SQ HS 06/09/17 [Lantus (10mL VIAL) -] Multivit-Min/FA/Lycopen/Lutein 1 tab PO DAILY 06/09/17 [Centrum Silver Tablet] Rosuvastatin Calcium 10 mg PO HS 06/09/17 Finasteride [Proscar -] 5 mg PO DAILY tablet 01/13/19 Losartan Potassium [Cozaar -] 12.5 mg PO DAILY #30 tablet 02/26/19 Allergies Allergy/AdvReac Type Severity Reaction Status Date / Time No Known Allergies Allergy Verified 01/06/19 23:47 REVIEW OF SYSTEMS: CONSTITUTIONAL: Absent: fever, chills CARDIOVASCULAR: Absent: chest pain RESPIRATORY: Absent: cough GASTROINTESTINAL: Abdominal pain absent PHYSICAL EXAM: GENERAL: Awake, alert, and fully oriented, in no acute distress. HEAD: Normal with no signs of trauma. LOWER EXTREMITIES: B/L LEs with no edema at present. Multiple areas of superficial scabbing/ulcerations (?scratching). R 3rd toe with small scab over nail bed. No erythema or drainage. L tma with small scab at medial aspect, no erythema or drainage. R lateral calf with approx 2x2cm encapsulated mass, no ttp. Chronic skin changes b/l les/feet, no erythema. Vasc: Palpable femoral b/l, distal pulses not appreciated. Vital Signs Temperature 97.7 F 02/27/19 06:00 Pulse Rate 64 02/27/19 06:00 Respiratory Rate 17 02/27/19 06:00 Blood Pressure 107/54 L 02/27/19 06:00 O2 Sat by Pulse Oximetry (%) 99 02/26/19 21:00 Lab Results WBC 4.4 K/mm3 (4.0-10.0) 02/25/19 05:39 RBC 2.62 M/mm3 (4.00-5.60) L 02/25/19 05:39 Hgb 9.0 GM/dL (11.7-16.9) L 02/25/19 05:39 Hct 26.0 % (35.4-49) L 02/25/19 05:39 MCV 99.5 fl (80-96) H 02/25/19 05:39 MCHC 34.7 g/dl (32.0-35.9) 02/25/19 05:39 RDW 15.4 % (11.9-15.9) 02/25/19 05:39 Plt Count 107 K/MM3 (134-434) L 02/25/19 05:39 Sodium 140 mmol/L (136-145) 02/25/19 05:39 Potassium 3.8 mmol/L (3.5-5.1) 02/25/19 05:39 Chloride 103 mmol/L (98-107) 02/25/19 05:39 Carbon Dioxide 27 mmol/L (21-32) 02/25/19 05:39 Anion Gap 10 MMOL/L (8-16) 02/25/19 05:39 BUN 55.5 mg/dL (7-18) H 02/25/19 05:39 Creatinine 1.5 mg/dL (0.55-1.3) H 02/25/19 05:39 Random Glucose 75 mg/dL (74-106) 02/25/19 05:39 Calcium 8.5 mg/dL (8.5-10.1) 02/25/19 05:39 A/P: 88 y/o M well known to Vascular (Dr Small) w/ PMHx CAD s/p CABG, PCI/ stent, LV systolic dysfunction S/P ICD (Medtronic), HTN, IDDM, PAD s/p multiple revascularization and L TMA, recent hospitalization for acute on chronic kidney disease now admitted with le edema. Vascular consulted for evaluation. Multiple superficial areas of scabbing/ulceration with no signs of infection. B/L le's with no edema at present. -Continue moisturizer to b/l legs/feet -Local wound care with xeroform to any areas of ulceration. -Dr Small will be by later today to see patient. above d/w attending Dr Small <Loyd Small - Last Filed: 03/01/19 08:45> - Consultation REQUESTING PROVIDER: CONSULT REQUEST: We have been asked to surgically evaluate this patient for ( specify). PCP:Joie Noonan HISTORY OF PRESENT ILLNESS: PMHx: PSHx: Home Medications Medication Instructions Recorded Ascorbate Calcium [Vitamin C] 500 mg PO DAILY 01/20/14 Aspirin [ASA -] 81 mg PO DAILY 01/20/14 Carvedilol 3.125 mg PO BID 01/20/14 Folic Acid - 1 mg PO DAILY 01/20/14 Pregabalin [Lyrica -] 50 mg PO HS 01/20/14 Ranitidine HCl [Zantac] 150 mg PO HS 01/20/14 Tamsulosin HCl [Flomax -] 0.4 mg PO HS 01/20/14 Levothyroxine [Synthroid -] 75 mcg PO DAILY 07/21/16 Ergocalciferol (Vitamin D2) 2,000 unit PO DAILY 06/09/17 [Vitamin D2] Furosemide [Lasix -] 20 mg PO DAILY 06/09/17 Insulin Glargine,Hum.rec.anlog 10 units SQ HS 06/09/17 [Lantus (10mL VIAL) -] Multivit-Min/FA/Lycopen/Lutein 1 tab PO DAILY 06/09/17 [Centrum Silver Tablet] Rosuvastatin Calcium 10 mg PO HS 06/09/17 Finasteride [Proscar -] 5 mg PO DAILY tablet 01/13/19 Losartan Potassium [Cozaar -] 12.5 mg PO DAILY #30 tablet 02/26/19 Allergies Allergy/AdvReac Type Severity Reaction Status Date / Time No Known Allergies Allergy Verified 01/06/19 23:47 REVIEW OF SYSTEMS: CONSTITUTIONAL: Absent: fever, chills, diaphoresis, generalized weakness, malaise, loss of appetite, weight change CARDIOVASCULAR: Absent: chest pain, syncope, palpitations, irregular heart rate, lightheadedness , peripheral edema RESPIRATORY: Absent: cough, shortness of breath, dyspnea with exertion, wheezing, stridor, hemoptysis GASTROINTESTINAL: Absent: abdominal pain, abdominal distension, nausea, vomiting, diarrhea, constipation, melena, hematochezia GENITOURINARY: Absent: dysuria, frequency, urgency, hesitancy, hematuria, flank pain, genital pain MUSCULOSKELETAL: Absent: myalgia, arthralgia, joint swelling, back pain, neck pain SKIN: Absent: rash, itching, pallor HEMATOLOGIC/IMMUNOLOGIC: Absent: easy bleeding, easy bruising, lymphadenopathy NEUROLOGIC: Absent: headache, focal weakness, paresthesias, dizziness, unsteady gait, seizure, mental status changes, bladder or bowel incontinence PSYCHIATRIC: Absent: anxiety, depression, suicidal or homicidal ideation, hallucinations. PHYSICAL EXAM: GENERAL: Awake, alert, and fully oriented, in no acute distress. HEAD: Normal with no signs of trauma. EYES: PERRL, sclera anicteric, conjunctiva clear. NECK: Normal ROM, supple without lymphadenopathy, JVD, or masses. LUNGS: Clear to auscultation bilat anteriorly. No wheezes, and no crackles. No accessory muscle use. HEART: Regular rate and rhythm. No murmurs ABDOMEN: Soft, nontender, not distended, normoactive bowel sounds, no guarding, no rebound, no masses. No organomegaly. MUSCULOSKELETAL: Normal ROM at all joints. No bony deformities or tenderness. No CVA tenderness. UPPER EXTREMITIES: 2+ pulses, warm, well-perfused. No cyanosis. Cap refill <2 seconds. No peripheral edema. LOWER EXTREMITIES: 2+ pulses, warm, well-perfused. No calf tenderness. No peripheral edema. NEUROLOGICAL: Normal speech, gait not observed. PSYCH: Cooperative. Good eye contact. Appropriate mood and affect. SKIN: Warm, dry, normal turgor, no rashes or lesions noted. Vital Signs Temperature 97.2 F L 02/27/19 10:00 Pulse Rate 72 02/27/19 10:00 Respiratory Rate 22 H 02/27/19 10:00 Blood Pressure 99/48 L 02/27/19 10:00 O2 Sat by Pulse Oximetry (%) 98 02/27/19 09:00 Lab Results WBC 4.4 K/mm3 (4.0-10.0) 02/25/19 05:39 RBC 2.62 M/mm3 (4.00-5.60) L 02/25/19 05:39 Hgb 9.0 GM/dL (11.7-16.9) L 02/25/19 05:39 Hct 26.0 % (35.4-49) L 02/25/19 05:39 MCV 99.5 fl (80-96) H 02/25/19 05:39 MCHC 34.7 g/dl (32.0-35.9) 02/25/19 05:39 RDW 15.4 % (11.9-15.9) 02/25/19 05:39 Plt Count 107 K/MM3 (134-434) L 02/25/19 05:39 Sodium 140 mmol/L (136-145) 02/25/19 05:39 Potassium 3.8 mmol/L (3.5-5.1) 02/25/19 05:39 Chloride 103 mmol/L (98-107) 02/25/19 05:39 Carbon Dioxide 27 mmol/L (21-32) 02/25/19 05:39 Anion Gap 10 MMOL/L (8-16) 02/25/19 05:39 BUN 55.5 mg/dL (7-18) H 02/25/19 05:39 Creatinine 1.5 mg/dL (0.55-1.3) H 02/25/19 05:39 Random Glucose 75 mg/dL (74-106) 02/25/19 05:39 Calcium 8.5 mg/dL (8.5-10.1) 02/25/19 05:39 History reviewed and patient examined. Mr. Alfonso sees me regularly for small wounds on both feet. He was admitted with edema of both legs and has improved. He has an area of localized swelling in the right ankle which is not painful or fluctuant. Otherwise there are no new wounds. He should continue to elevate his legs and have routine care to the small wounds with topical antibiotic. I will see in follow up in Wound Care.
--- NOTE | 2019-02-27 09:12 | PN ---
Progress Note, Physician History of Present Illness: Weakness, dyspnea, cough and bilateral lower extremity edema resolved with diuresis, no further chills. - Current Medication List Current Medications: Active Medications Ascorbic Acid (Vitamin C -) 500 mg PO DAILY [facility] Last Admin: 02/26/19 10:19 Dose: 500 mg Aspirin (Asa -) 81 mg PO DAILY [facility] Last Admin: 02/26/19 09:16 Dose: 81 mg Carbamide Perox/Anhydrous Glycerin (Debrox -) 10 drop AD BID [facility] Last Admin: 02/26/19 22:06 Dose: 10 drop Carvedilol (Coreg -) 3.125 mg PO BID [facility] Last Admin: 02/26/19 22:00 Dose: 3.125 mg Cholecalciferol (Vitamin D3 -) 2,000 unit PO DAILY [facility] Last Admin: 02/26/19 10:19 Dose: 2,000 unit Finasteride (Proscar -) 5 mg PO DAILY [facility] Last Admin: 02/26/19 09:18 Dose: 5 mg Folic Acid (Folic Acid -) 1 mg PO DAILY [facility] Last Admin: 02/26/19 09:17 Dose: 1 mg Furosemide (Lasix -) 20 mg PO DAILY [facility] Last Admin: 02/26/19 09:17 Dose: 20 mg Heparin Sodium (Porcine) (Heparin -) 5,000 unit SQ BID [facility] Last Admin: 02/26/19 22:00 Dose: 5,000 unit Ceftriaxone Sodium 1 gm/ (Dextrose) 50 mls @ 100 mls/hr IVPB DAILY [facility] Last Admin: 02/26/19 09:18 Dose: 100 mls/hr Insulin Detemir (Levemir Vial) 10 units SQ [facility] Last Admin: 02/26/19 22:00 Dose: 10 unit Levothyroxine Sodium (Synthroid -) 75 mcg PO 0700 [facility] Last Admin: 02/27/19 06:22 Dose: 75 mcg Losartan Potassium (Cozaar -) 12.5 mg PO DAILY [facility] Last Admin: 02/26/19 09:16 Dose: 12.5 mg Nystatin/Triamcinolone Acetonide (Mycolog Ii Cream -) 1 applic TP BID [facility]; Protocol Stop: 03/09/19 12:14 Last Admin: 02/26/19 22:06 Dose: 1 applic Pregabalin (Lyrica -) 50 mg PO HS [facility] Last Admin: 02/26/19 22:00 Dose: 50 mg Ranitidine HCl (Zantac -) 150 mg PO [facility] Last Admin: 02/26/19 21:59 Dose: 150 mg Rosuvastatin Calcium (Crestor -) 10 mg PO [facility] Last Admin: 02/26/19 22:00 Dose: 10 mg Tamsulosin HCl (Flomax -) 0.4 mg PO [facility] Last Admin: 02/26/19 22:00 Dose: 0.4 mg - Objective Vital Signs: Vital Signs Temperature 97.7 F 02/27/19 06:00 Pulse Rate 64 02/27/19 06:00 Respiratory Rate 17 02/27/19 06:00 Blood Pressure 107/54 L 02/27/19 06:00 O2 Sat by Pulse Oximetry (%) 99 02/26/19 21:00 Constitutional: Yes: No Distress, Calm, Thin Neck: Yes: Supple Cardiovascular: Yes: Regular Rate and Rhythm Respiratory: Yes: Regular, CTA Bilaterally Gastrointestinal: Yes: Soft, Hypoactive Bowel Sounds Edema: No Labs: CBC, BMP 02/25/19 05:39 02/25/19 05:39 - ....Imaging EKG: Report Reviewed (Tele: V-paced) Problem List - Problems (1) Acute on chronic systolic (congestive) heart failure Code(s): I50.23 - ACUTE ON CHRONIC SYSTOLIC (CONGESTIVE) HEART FAILURE (2) CKD (chronic kidney disease) Code(s): N18.9 - CHRONIC KIDNEY DISEASE, UNSPECIFIED Qualifiers: Chronic kidney disease stage: stage 3 (moderate) Qualified Code(s): N18.3 - Chronic kidney disease, stage 3 (moderate) (3) HTN (hypertension) Code(s): I10 - ESSENTIAL (PRIMARY) HYPERTENSION Qualifiers: Hypertension type: essential hypertension Qualified Code(s): I10 - Essential (primary) hypertension (4) History of implantable cardiac defibrillator (ICD) Code(s): [id number] - (5) Hx of CABG Code(s): Z95.1 - PRESENCE OF AORTOCORONARY BYPASS GRAFT (6) Hypercholesterolemia Code(s): E78.0 - PURE HYPERCHOLESTEROLEMIA * DO NOT USE * (7) Peripheral arterial disease Code(s): I73.9 - PERIPHERAL VASCULAR DISEASE, UNSPECIFIED (8) Hypothyroidism Code(s): E03.9 - HYPOTHYROIDISM, UNSPECIFIED Qualifiers: Hypothyroidism type: unspecified Qualified Code(s): E03.9 - Hypothyroidism , unspecified Assessment/Plan 07/21/2016 Echo: Moderate dilated with mild-mod decreased LV fxn, pacer RV, mild LAE, mod MR, mild TR 01/08/[address]: Mod bilateral effusions R>L 08/01/[address]: Mod bilateral effusions R>L, small pericardial effusions 08/02/2018 Echo: Mild-mod decreased LVEF 40-45%, normal RV size and fxn, mild LAE, mild MR, tr TR, [place], [place]. No pericardial effusion 1. 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 Acute on CKD with h/o hyperkalemia and hyponatremia resolved 3. CAD post CABG, angina pectoris 4. HTN 5. NIDDM 6. Hypercholesterolemia 7. Post ICD (Medtronic) for sustained ventricular tachycardia 8. Carotid stenosis 9. Hypothyroidism 10. PAD post FANCY SEWER and amputation (TMA) 11. Anemia post transfusion 12. BPH with UTI PLAN: 1. Furosemide 20 po qd and monitor renal function and electrolytes 2. Continue ASA 81 mg QD, Carvedilol 3.125 mg BID and Losartan 12.5 mg QD as hemodynamics permit. Continue Crestor 10 mg QHS 3. PT for gait training. 4. Completed empiric antibiotic course 5. DVT and GI prophylaxis 6. D/c planning with f/u in office
[2019-02-27] MEDS ORDERED: cefTRIAXone SODIUM 1 GM VIAL ONE (09:24)
[2019-02-27] MEDS ORDERED: DEXTROSE 5%-WATER - 50 ML IVPB ONE (09:24)
[2019-02-27] MEDS: FOLIC ACID 1 MG TABLET (FP) PO SCH (09:29)
[2019-02-27] MEDS: ASPIRIN 81 MG CHEWABLE TABLETS PO SCH (09:29)
[2019-02-27] MEDS: CHOLECALCIFEROL (VIT D3) 1,000 UNIT (25 MCG) TABLET PO SCH (09:30)
[2019-02-27] MEDS: FINASTERIDE 5 MG TABLET (FP) PO SCH (09:30)
[2019-02-27] MEDS: CEFTRIAXONE 1 GM in DEXTROSE 5%-WATER - 50 ML IVPB SCH (09:30)
[2019-02-27] MEDS: ASCORBIC ACID 500 MG TABLET (FP) PO SCH (09:30)
[2019-02-27] MEDS: CARBAMIDE PEROXIDE 6.5% OTIC 15 ML BOTTLE AD SCH (09:31)
[2019-02-27] MEDS: HEPARIN NA (PORCINE) 5,000 UNITS/ML 1ML VIAL SQ SCH (09:37)
[2019-02-27] MEDS: NYSTATIN/TRIAMCINOLONE TOPICAL CREAM 15 GM TUBE TP SCH (09:37)
--- NOTE | 2019-02-27 10:00 | PN ---
Progress Note, Physician Chief Complaint: in bed NAD no new c/o wants to go home, does not want to go to Rehab; has home O2 will order home PT and VNS; seen by surgery for legs PVD no edema no blisters, some superficial scratches; OK to f/u with dr Small outpt; VSS labs stable; BP 107/54 pt walked with walker ( brought his shoes from home); will pick him up today, f/u as advised - Current Medication List Current Medications: Active Medications Ascorbic Acid (Vitamin C -) 500 mg PO DAILY [facility] Last Admin: 02/27/19 09:30 Dose: 500 mg Aspirin (Asa -) 81 mg PO DAILY [facility] Last Admin: 02/27/19 09:29 Dose: 81 mg Carbamide Perox/Anhydrous Glycerin (Debrox -) 10 drop AD BID [facility] Last Admin: 02/27/19 09:31 Dose: 10 drop Carvedilol (Coreg -) 3.125 mg PO BID [facility] Last Admin: 02/26/19 22:00 Dose: 3.125 mg Cholecalciferol (Vitamin D3 -) 2,000 unit PO DAILY [facility] Last Admin: 02/27/19 09:30 Dose: 2,000 unit Finasteride (Proscar -) 5 mg PO DAILY [facility] Last Admin: 02/27/19 09:30 Dose: 5 mg Folic Acid (Folic Acid -) 1 mg PO DAILY [facility] Last Admin: 02/27/19 09:29 Dose: 1 mg Furosemide (Lasix -) 20 mg PO DAILY [facility] Last Admin: 02/26/19 09:17 Dose: 20 mg Ceftriaxone Sodium 1 gm/ (Dextrose) 50 mls @ 100 mls/hr IVPB DAILY [facility] Last Admin: 02/27/19 09:30 Dose: 100 mls/hr Insulin Detemir (Levemir Vial) 10 units SQ HS [facility] Last Admin: 02/26/19 22:00 Dose: 10 unit Levothyroxine Sodium (Synthroid -) 75 mcg PO 0700 [facility] Last Admin: 02/27/19 06:22 Dose: 75 mcg Losartan Potassium (Cozaar -) 12.5 mg PO DAILY [facility] Last Admin: 02/26/19 09:16 Dose: 12.5 mg Nystatin/Triamcinolone Acetonide (Mycolog Ii Cream -) 1 applic TP BID [facility]; Protocol Stop: 03/09/19 12:14 Last Admin: 02/27/19 09:37 Dose: 1 applic Pregabalin (Lyrica -) 50 mg PO [facility] Last Admin: 02/26/19 22:00 Dose: 50 mg Ranitidine HCl (Zantac -) 150 mg PO [facility] Last Admin: 02/26/19 21:59 Dose: 150 mg Rosuvastatin Calcium (Crestor -) 10 mg PO [facility] Last Admin: 02/26/19 22:00 Dose: 10 mg Tamsulosin HCl (Flomax -) 0.4 mg PO [facility] Last Admin: 02/26/19 22:00 Dose: 0.4 mg - Objective Vital Signs: Vital Signs Temperature 97.7 F 02/27/19 06:00 Pulse Rate 64 02/27/19 06:00 Respiratory Rate 17 02/27/19 06:00 Blood Pressure 107/54 L 02/27/19 06:00 O2 Sat by Pulse Oximetry (%) 99 02/26/19 21:00 Constitutional: Yes: No Distress, Calm Eyes: Yes: Conjunctiva Clear HENT: Yes: Atraumatic Neck: Yes: Supple Cardiovascular: Yes: Regular Rate and Rhythm Respiratory: Yes: Diminished Gastrointestinal: Yes: Soft. No: Tenderness Genitourinary: No: Hematuria Musculoskeletal: No: Joint Stiffness, Joint Swelling Extremities: Yes: Other (L partail foot amputation; no wounds no blisters no edema; few superficial scratches). No: Cold, Cool, Cyanosis Edema: No Integumentary: No: Rash, Venous Stasis Changes Neurological: Yes: WNL, Alert, Oriented ...Motor Strength: WNL Psychiatric: Yes: WNL, Alert, Oriented. No: Agitated, Suicidal Ideation Labs: CBC, BMP 02/25/19 05:39 02/25/19 05:39 - ....Imaging Other: Report Reviewed Assessment/Plan The patient is an 88-year-old male with history of CHF, HTN, CRF, recurrent UTI s, DM, PVD Left transmetatarsal amputation, on home O2 2L admitted with CHF exac , UTI and possible PNA; s/p IV ATB for UTI improved; f/u and renal outpt s/p iv lasix, now po; f/u cardiology outpt chest CT stable f/u pulmonary outpt and chest CT in 2-3 months heme and renal f/u for anemia, CRF vascular sx f/u for PVD falls decubs pfx; do not get OOB alone d/w pt DC home with VNS PT rehab Home O2 d/w pt dw staff pt's aware of the above d/w her in detail / phone
--- NOTE | 2019-02-27 11:01 | PN ---
Progress Note, Physician History of Present Illness: PULMONARY ALERT,NO DISTRESS,-SOB,-CP - Current Medication List Current Medications: Active Medications Ascorbic Acid (Vitamin C -) 500 mg PO DAILY [facility] Last Admin: 02/27/19 09:30 Dose: 500 mg Aspirin (Asa -) 81 mg PO DAILY [facility] Last Admin: 02/27/19 09:29 Dose: 81 mg Carbamide Perox/Anhydrous Glycerin (Debrox -) 10 drop AD BID [facility] Last Admin: 02/27/19 09:31 Dose: 10 drop Carvedilol (Coreg -) 3.125 mg PO BID [facility] Last Admin: 02/26/19 22:00 Dose: 3.125 mg Cholecalciferol (Vitamin D3 -) 2,000 unit PO DAILY [facility] Last Admin: 02/27/19 09:30 Dose: 2,000 unit Finasteride (Proscar -) 5 mg PO DAILY [facility] Last Admin: 02/27/19 09:30 Dose: 5 mg Folic Acid (Folic Acid -) 1 mg PO DAILY [facility] Last Admin: 02/27/19 09:29 Dose: 1 mg Furosemide (Lasix -) 20 mg PO DAILY [facility] Last Admin: 02/26/19 09:17 Dose: 20 mg Ceftriaxone Sodium 1 gm/ (Dextrose) 50 mls @ 100 mls/hr IVPB DAILY [facility] Last Admin: 02/27/19 09:30 Dose: 100 mls/hr Insulin Detemir (Levemir Vial) 10 units SQ HS [facility] Last Admin: 02/26/19 22:00 Dose: 10 unit Levothyroxine Sodium (Synthroid -) 75 mcg PO 0700 [facility] Last Admin: 02/27/19 06:22 Dose: 75 mcg Losartan Potassium (Cozaar -) 12.5 mg PO DAILY [facility] Last Admin: 02/26/19 09:16 Dose: 12.5 mg Nystatin/Triamcinolone Acetonide (Mycolog Ii Cream -) 1 applic TP BID [facility]; Protocol Stop: 03/09/19 12:14 Last Admin: 02/27/19 09:37 Dose: 1 applic Pregabalin (Lyrica -) 50 mg PO [facility] Last Admin: 02/26/19 22:00 Dose: 50 mg Ranitidine HCl (Zantac -) 150 mg PO [facility] Last Admin: 02/26/19 21:59 Dose: 150 mg Rosuvastatin Calcium (Crestor -) 10 mg PO [facility] Last Admin: 02/26/19 22:00 Dose: 10 mg Tamsulosin HCl (Flomax -) 0.4 mg PO [facility] Last Admin: 02/26/19 22:00 Dose: 0.4 mg - Objective Vital Signs: Vital Signs Temperature 97.7 F 02/27/19 06:00 Pulse Rate 64 02/27/19 06:00 Respiratory Rate 17 02/27/19 06:00 Blood Pressure 107/54 L 02/27/19 06:00 O2 Sat by Pulse Oximetry (%) 99 02/26/19 21:00 Constitutional: Yes: Calm, Thin Eyes: Yes: WNL HENT: Yes: WNL Neck: Yes: WNL Cardiovascular: Yes: Regular Rate and Rhythm, S1, S2 Respiratory: Yes: Diminished Extremities: Yes: Amputation (PARTIAL AMPUTATION LEFT FOOT) Edema: No Labs: CBC, BMP Problem List - Problems (1) Urinary tract infection Code(s): N39.0 - URINARY TRACT INFECTION, SITE NOT SPECIFIED (2) ASHD (arteriosclerotic heart disease) Code(s): I25.10 - ATHSCL HEART DISEASE OF [place] CORONARY ARTERY W/O ANG PCTRS (3) Anemia Code(s): D64.9 - ANEMIA, UNSPECIFIED Qualifiers: (4) CAD (coronary artery disease) Code(s): I25.10 - ATHSCL HEART DISEASE OF [place] CORONARY ARTERY W/O ANG PCTRS Qualifiers: Coronary Disease-Associated Artery/Lesion type: [place] artery [place] vs. transplanted heart: [place] heart Associated angina: without angina Qualified Code(s): I25.10 - Atherosclerotic heart disease of [place] coronary artery without angina pectoris (5) CKD (chronic kidney disease) Code(s): N18.9 - CHRONIC KIDNEY DISEASE, UNSPECIFIED (6) COPD (chronic obstructive pulmonary disease) Code(s): J44.9 - CHRONIC OBSTRUCTIVE PULMONARY DISEASE, UNSPECIFIED Qualifiers: COPD type: chronic bronchitis Assessment/Plan A/P Acute on Chronic Systolic/Diastolic Heart Failure improving CAD s/p CABG CKD HTN DM Carotid Stenosis PAD Anemia UTI - lasix - daily weights - O2 to keep SpO2 >90% - antibiotics - DVT prophylaxis Problem List - Problems (1) Acute on chronic systolic (congestive) heart failure Code(s): I50.23 - ACUTE ON CHRONIC SYSTOLIC (CONGESTIVE) HEART FAILURE (2) Urinary tract infection Code(s): N39.0 - URINARY TRACT INFECTION, SITE NOT SPECIFIED
[2019-02-27] MEDS: FUROSEMIDE 20 MG TABLET (FP) PO SCH (11:07)
[2019-02-27] MEDS: CARVEDILOL 3.125 MG TABLET (FP) PO SCH (11:07)
[2019-02-27] MEDS: LOSARTAN POTASSIUM 25 MG TABLET PO SCH (11:07)
[2019-02-27 11:15] VITALS: BP 99/48; PULSE 72; TEMP 97.2
== END 2019-02-27 14:33 | disposition home health service (06) | DRG 291 ==
LOC: JER 17:04 → JERBED 20:01 → J4W 02-22 04:11
PROVIDERS: ADMIT Internal Medicine; ATTEND Internal Medicine
DX: I13.0 Hypertensive heart and chronic kidney disease with heart failure and stage 1 through stage 4 chronic kidney disease, or unspecified chronic kidney disease (principal); I50.23 Acute on chronic systolic (congestive) heart failure; J18.9 Pneumonia, unspecified organism; N39.0 Urinary tract infection, site not specified; E11.9 Type 2 diabetes mellitus without complications; N18.3 Chronic kidney disease, stage 3 (moderate); I73.9 Peripheral vascular disease, unspecified; I25.119 Atherosclerotic heart disease of native coronary artery with unspecified angina pectoris; Z95.1 Presence of aortocoronary bypass graft; D64.9 Anemia, unspecified; E03.9 Hypothyroidism, unspecified; N40.0 Benign prostatic hyperplasia without lower urinary tract symptoms; I25.10 Atherosclerotic heart disease of native coronary artery without angina pectoris; Z98.61 Coronary angioplasty status; R19.7 Diarrhea, unspecified
CPT/HCPCS: 36415; 71045-TC-FY; 71250-TC; 80048; 80053; 81003; 82550; 82553; 82607; 82728; 82962; 83540; 83880; 84443; 84484; 85025; 85027; 85651; 87040; 87086; 87186; 87324; 87449; 93005; 93010; 97116-GP; 97162-GP; 99285-25; J1644

== ENCOUNTER 2019-03-02 11:11 | Inpatient (IN) | payer OTHER, MEDICARE ==
[2019-03-02 12:48] LABS: BASO % 0.8 % (0-2.0); EOS % 3.8 % (0-4.5); HEMATOCRIT 26.6 % (35.4-49); MCHC 33.9 g/dl (32.0-35.9); MEAN CELL VOLUME 100.2 fl (80-96); MEAN PLT VOLUME 9.8 fl (7.5-11.1); MONO % 13.3 % (3.8-10.2); NEUT % 75.1 % (42.8-82.8); PLATELET COUNT 95 K/MM3 (134-434); RBC 2.65 M/mm3 (4.00-5.60); RDW 15.4 % (11.9-15.9); WHITE BLOOD COUNT 5.4 K/mm3 (4.0-10.0)
--- NOTE | 2019-03-02 12:56 | PDOC ---
Documentation entered by Evette Manriquez SCRIBE, acting as scribe for Jose Manuel Urena MD. Jose Manuel Urena MD: This documentation has been prepared by the Declan mcfarlane Nirvannie, SCRIBE, under my direction and personally reviewed by me in its entirety. I confirm that the documentation accurately reflects all work, treatment, procedures, and medical decision making performed by me. History of Present Illness - General Chief Complaint: Edema Stated Complaint: LEG SWELLING Time Seen by Provider: 03/02/19 11:28 History Source: Patient, Spouse Exam Limitations: No Limitations - History of Present Illness Initial Comments: 03/02/19 12:43 The patient is an 88 year old male, with a significant past medical history of CHF, HTN, recurrent UTIs secondary, DM, Left transmetatarsal amputation, on home O2 2L (only at night), and recent discharge from [facility] 02/27 for CHF exacerbation and UTI, who presents to the emergency department with, increased bilateral lower extremity edema. As per patients at bedside, upon his discharge his lower extremity edema was localized to the bilateral feet but has since progressed upward to the shins despite his Lasix compliance. endorses exertional dyspnea with minimal exertion since his admission which is unchanged. He denies any recent chest pain or palpitations. He denies any recent fevers, chills, headache or dizziness. He denies any recent nausea, vomit, diarrhea or constipation. He denies any recent dysuria, frequency, urgency or hematuria. Allergies: NKDA Primary Care Physician: Dr. Noonan at [facility] W[facility]: Dr. Noonan [place] Hand: Dr. Keyon Fair Baseline O2 Saturation: 95% on room air Past History - Past Medical History Allergies/Adverse Reactions: Allergies Allergy/AdvReac Type Severity Reaction Status Date / Time No Known Allergies Allergy Verified 01/06/19 23:47 Home Medications: Ambulatory Orders Ascorbate Calcium [Vitamin C] 500 mg PO DAILY 01/20/14 Aspirin [ASA -] 81 mg PO DAILY 01/20/14 Carvedilol 3.125 mg PO BID 01/20/14 Folic Acid - 1 mg PO DAILY 01/20/14 Pregabalin [Lyrica -] 50 mg PO HS 01/20/14 Ranitidine HCl [Zantac] 150 mg PO HS 01/20/14 Tamsulosin HCl [Flomax -] 0.4 mg PO HS 01/20/14 Levothyroxine [Synthroid -] 75 mcg PO DAILY 07/21/16 Ergocalciferol (Vitamin D2) [Vitamin D2] 2,000 unit PO DAILY 06/09/17 Furosemide [Lasix -] 20 mg PO DAILY 06/09/17 Insulin Glargine,Hum.rec.anlog [Lantus (10mL VIAL) -] 10 units SQ HS 06/09/17 Multivit-Min/FA/Lycopen/Lutein [Centrum Silver Tablet] 1 tab PO DAILY 06/09/17 Rosuvastatin Calcium 10 mg PO HS 06/09/17 Finasteride [Proscar -] 5 mg PO DAILY tablet 01/13/19 Losartan Potassium [Cozaar -] 12.5 mg PO DAILY #30 tablet 02/26/19 Anemia: Yes Asthma: No Cancer: No Cardiac Disorders: Yes (CAD, PVD, CABG, stents) COPD: Yes CHF: Yes Diabetes: Yes Disorders: Yes (BPH) HTN: Yes Hypercholesterolemia: No Kidney Stones: Yes Thyroid Disease: Yes (HYPOTHYROID) - Surgical History Abdominal Surgery: (gallbladder removal 2015) Appendectomy: No Cardiac Surgery: Yes (cabg x 3/defibrillator implant) Cholecystectomy: Yes (2015) Lung Surgery: No Neurologic Surgery: No Orthopedic Surgery: Yes (LEFT FOOT) - Immunization History Td Vaccination: No TDAP Vaccination: No Immunization Up to Date: Yes - Suicide/Smoking/Psychosocial Hx Smoking Status: No Smoking History: Former smoker Years of Tobacco Use: 50 Have you smoked in the past 12 months: No Number of Cigarettes Smoked Daily: 20 If you are a former smoker, when did you quit?: 2009 Cigars Per Day: 0 Information on smoking cessation initiated: No Hx Alcohol Use: No Drug/Substance Use Hx: No Substance Use Type: None Hx Substance Use Treatment: No Review of Systems - Review of Systems Able to Perform ROS?: Yes Comments:: 03/02/19 12:43 CONSTITUTIONAL: No reported: Fever, Chills, Diaphoresis, Generalized Weakness, Malaise, Loss of Appetite HEENT: No reported: Rhinorrhea, Nasal Congestion, Throat Pain, Throat Swelling, Difficulty Swallowing, Mouth Swelling, Ear Pain, Eye Pain, Visual Changes CARDIOVASCULAR: Present: Bilateral lower extremity edema. No reported: Chest Pain, Syncope, Palpitations, Irregular Heart Rate, Lightheadedness, RESPIRATORY: Present: Exertional dyspnea. No reported: Cough,Orthopnea, Wheezing, Stridor, Hemoptysis GASTROINTESTINAL: No reported: Abdominal pain, Abdominal Distension, Nausea, Vomiting, Diarrhea, Constipation, Melena, Hematochezia GENITOURINARY: No reported: Dysuria, Frequency, Urgency, Hesitancy, Flank Pain, Genital Pain MUSCULOSKELETAL: No reported: Myalgia, Arthralgia, Joint Swelling, Back pain, Neck Pain SKIN: No reported: Rash, Itching, Pallor HEMEATOLOGIC/IMMUNOLOGIC: No reported: Easy Bleeding, Easy Bruising, Lymphadenopathy, Frequent infections ENDOCRINE: No reported: Unexplained Weight Gain, Unexplained Weight Loss, Heat Intolerance , Cold Intolerance NEUROLOGIC: No reported: Headache, Focal Weakness, Paresthesias, Vertigo, Lightheadedness, Unsteady Gait, Seizure, Mental Status Changes, Incontinence PSYCHIATRIC: No reported: Anxiety, Depression *Physical Exam - Vital Signs Last Vital Signs Temp Pulse Resp BP Pulse Ox 98.2 F 62 18 108/49 L 99 03/02/19 11:34 03/02/19 11:34 03/02/19 11:34 03/02/19 11:34 03/02/19 11:34 - Physical Exam Comments: 03/02/19 12:53 GENERAL: The patient is awake, alert, and fully oriented, Nontoxic - in no acute distress. HEAD: Normocephalic, atraumatic. EYES: extraocular movements intact, sclera anicteric, conjunctiva clear. ENT: Normal voice, Moist mucous membranes. NECK: Normal range of motion, supple LUNGS: Breath sounds equal, clear to auscultation bilaterally. No wheezes, no rhonchi, no rales. HEART: Regular rate and rhythm, pm in L chest wall ABDOMEN: Soft, nontender, No guarding, no rebound. No CVA tenderness EXTREMITIES: Normal range of motion, +2 pitting edema, L trans metatarsal amputation NEUROLOGICAL: No facial assymetry, Normal speech, PSYCH: Normal mood, normal affect. SKIN: Warm, Dry, normal turgor, Heart Score/ECG Review - ECG Impressions Comment:: 03/02/19 16:08 Twelve-lead EKG was performed and reviewed by me. EKG performed: 11:53 on 03/02/2019 Paced ventricular rhythm Rate of 65 No signs of ischemia via Sgarbossa criteria ED Treatment Course - LABORATORY CBC & Chemistry Diagram: 03/02/19 12:20 03/02/19 12:20 Medical Decision Making - Medical Decision Making 03/02/19 12:29 Pt is a 88y M hx of chf, htn, utis, dm, L transmetatarsal amputation, on home O2 , presents with complaint of generalized weakness and LE edema for the past few days, pt was recently admitted for CHF and generalized waekness - states he cannot ambulate without signicant assistance. dneis any pain, does note some chronic sob/talamantes. will r/o chf, renal failure, metabolic derangement may need [facility] for rehab 03/02/19 14:30 labs reviewed noted for worsening renal function bnp elevated, but cxr and clinically has no signs of acute decompensated heart failure will admit for further management 03/02/19 15:[address] Noonan - will admit pt for further management and PT eval stable fo rmed surg Case discussed in detail with admitting physician including history, physical exam and ancillary studies. Admitting physician has assumed care for the patient, will follow all pending diagnostics and will complete the evaluation and treatment. *DC/Admit/Observation/Transfer Diagnosis at time of Disposition: Bilateral leg edema Acute renal failure Qualifiers: Acute renal failure type: unspecified Qualified Code(s): N17.9 - Acute kidney failure, unspecified - Discharge Dispostion Condition at time of disposition: Guarded Decision to Admit order: Yes - Referrals - Patient Instructions - Post Discharge Activity
[2019-03-02 13:10] LABS: ALBUMIN 2.8 g/dl (3.4-5.0); ALK PHOS 75 U/L (45-117); ANION GAP 7 MMOL/L (8-16); BILIRUBIN,TOTAL 0.4 mg/dL (0.2-1); BLOOD UREA NITROGEN 68.2 mg/dL (7-18); CALCIUM 8.7 mg/dL (8.5-10.1); CHLORIDE 102 mmol/L (98-107); CO2 26 mmol/L (21-32); CREATININE 1.9 mg/dL (0.55-1.3); GLUCOSE,RANDOM 156 mg/dL (74-106); POTASSIUM 4.6 mmol/L (3.5-5.1); SGOT/AST 41 U/L (15-37); SGPT/ALT 35 U/L (13-61); SODIUM 135 mmol/L (136-145); TOT PROT 6.9 g/dl (6.4-8.2)
[2019-03-02] MEDS: TAMSULOSIN HCL 0.4 MG CAP PO SCH (22:00)
[2019-03-02] MEDS: ROSUVASTATIN CA 10 MG TABLET (FP) PO SCH (22:01)
[2019-03-02] MEDS: RANITIDINE HCL 150 MG TABLET (FP) PO SCH (22:01)
[2019-03-02] MEDS: PREGABALIN 50 MG CAPSULE PO SCH (22:01)
[2019-03-02] MEDS: CARVEDILOL 3.125 MG TABLET (FP) PO SCH (22:01)
[2019-03-02] MEDS: INSULIN (LEVEMIR) 100 UNITS/ML UNITS SQ SCH (22:03)
[2019-03-03] MEDS ORDERED: ALBUTEROL SO4 0.083% IH SOL 2.5 MG/3 ML VIAL.NEB. NEB PRN (02:50)
[2019-03-03] MEDS: FUROSEMIDE 40 MG/4 ML INJECTABLE VIAL IVPUSH ONE (02:58)
[2019-03-03] MEDS: LEVOTHYROXINE NA 75 MCG TABLET (FP) PO SCH (06:00)
[2019-03-03] MEDS ORDERED: FUROSEMIDE 20 MG TABLET (FP) PO SCH (10:00)
[2019-03-03] MEDS ORDERED: methylPREDNISolone NA SUCC 40 MG/1 ML VIAL IVPUSH SCH (10:00)
[2019-03-03] MEDS ORDERED: FUROSEMIDE 40 MG/4 ML INJECTABLE VIAL IVPUSH SCH (10:00)
[2019-03-03] MEDS ORDERED: PT OWN MED DRAWER 7, Y5N ONE (10:13)
[2019-03-03] MEDS: LOSARTAN POTASSIUM 25 MG TABLET PO SCH (10:32)
[2019-03-03] MEDS: CHOLECALCIFEROL (VIT D3) 1,000 UNIT (25 MCG) TABLET PO SCH (10:32)
[2019-03-03] MEDS: FOLIC ACID 1 MG TABLET (FP) PO SCH (10:32)
[2019-03-03] MEDS: CARVEDILOL 3.125 MG TABLET (FP) PO SCH ×2 (10:32→21:17)
[2019-03-03] MEDS: FINASTERIDE 5 MG TABLET (FP) PO SCH (10:32)
[2019-03-03] MEDS: ASPIRIN 81 MG CHEWABLE TABLETS PO SCH (10:33)
[2019-03-03] MEDS: ASCORBIC ACID 500 MG TABLET (FP) PO SCH (10:33)
--- NOTE | 2019-03-03 11:36 | EKG ---
Test Reason : Blood Pressure : / mmHG Vent. Rate : 065 BPM Atrial Rate : 065 BPM P-R Int : 000 ms QRS Dur : 198 ms QT Int : 494 ms P-R-T Axes : 063 -69 110 degrees QTc Int : 513 ms Ventricular-paced rhythm ABNORMAL ECG WHEN COMPARED WITH ECG OF 21-FEB-2019 18:15, NO SIGNIFICANT CHANGE WAS FOUND Confirmed by ML BELL MD ([id number]) on 03/03/2019 11:35:53 AM Referred By: Confirmed By:ML BELL MD
--- NOTE | 2019-03-03 12:46 | HP ---
Admitting History and Physical - Primary Care Physician PCP: Ezequiel Nonoan - Admission Chief Complaint: SOB History of Present Illness: Pt with known CAAD, s/p CABG, CHF, PVD, DM came to ER with SOB, leg edema; pt also with anxiety at night. - Past Medical History Cardiovascular: Yes: CAD (CABG), HTN, Mitral Insufficiency, Other (ICD for induced ventricular tachycardia) Pulmonary: Yes: COPD Gastrointestinal: Yes: Other (recent C diff colitis, gallstones, chronic cholecystitis) Renal/: Yes: Renal Failure (had ARF last month in September creat bumped to 2), BPH, Renal Calculi Heme/Onc: Yes: Anemia Infectious Disease: Yes: C-Diff Musculoskeletal: Yes: Other (L foot wound s/p partial amputation) Endocrine: Yes: Diabetes Mellitus, Other (diabetic neuropathy) - Past Surgical History Past Surgical History: Yes: AICD, Amputation (TMA), Bypass, CABG - Smoking History Smoking history: Former smoker Have you smoked in the past 12 months: No Aproximately how many cigarettes per day: 20 If you are a former smoker, when did you quit?: 2009 - Alcohol/Substance Use Hx Alcohol Use: No History of Substance Use: reports: None - Social History ADL: Family Assistance History of Recent Travel: No Home Medications - Allergies Allergies/Adverse Reactions: Allergies Allergy/AdvReac Type Severity Reaction Status Date / Time No Known Allergies Allergy Verified 01/06/19 23:47 - Home Medications Home Medications: Ambulatory Orders Ascorbate Calcium [Vitamin C] 500 mg PO DAILY 01/20/14 Aspirin [ASA -] 81 mg PO DAILY 01/20/14 Carvedilol 3.125 mg PO BID 01/20/14 Folic Acid - 1 mg PO DAILY 01/20/14 Pregabalin [Lyrica -] 50 mg PO HS 01/20/14 Ranitidine HCl [Zantac] 150 mg PO HS 01/20/14 Tamsulosin HCl [Flomax -] 0.4 mg PO HS 01/20/14 Levothyroxine [Synthroid -] 75 mcg PO DAILY 07/21/16 Ergocalciferol (Vitamin D2) [Vitamin D2] 2,000 unit PO DAILY 06/09/17 Furosemide [Lasix -] 20 mg PO DAILY 06/09/17 Insulin Glargine,Hum.rec.anlog [Lantus (10mL VIAL) -] 10 units SQ HS 06/09/17 Multivit-Min/FA/Lycopen/Lutein [Centrum Silver Tablet] 1 tab PO DAILY 06/09/17 Rosuvastatin Calcium 10 mg PO HS 06/09/17 Finasteride [Proscar -] 5 mg PO DAILY tablet 01/13/19 Losartan Potassium [Cozaar -] 12.5 mg PO DAILY #30 tablet 02/26/19 Family Disease History - Family Disease History Family Disease History: Heart Disease: Mother, Brother (liver [place]), [place]: Brother Review of Systems - Review of Systems Constitutional: denies: Chills, Fever Eyes: denies: Blurred Vision, Recent Change in Vision HENT: denies: Ear Discharge, Nasal Congestion, Throat Pain Neck: denies: Lumps, Pain on Movement Cardiovascular: reports: Edema. denies: Chest Pain, Palpitations Respiratory: denies: Cough, Wheezing Gastrointestinal: denies: Abdominal Pain, Diarrhea, Nausea Genitourinary: denies: Burning, Discharge Musculoskeletal: reports: Muscle Pain. denies: Back Pain Integumentary: reports: Rash. denies: Blister Neurological: denies: Change in LOC, Confusion, Numbness Endocrine: denies: Excessive Sweating, Intolerance to Cold Psychiatric: denies: Altered Sleep Pattern, Depression Physical Examination Vital Signs: Vital Signs Temperature 97.5 F L 03/03/19 06:00 Pulse Rate 67 03/03/19 06:00 Respiratory Rate 18 03/03/19 06:00 Blood Pressure 120/63 03/03/19 06:00 O2 Sat by Pulse Oximetry (%) 100 03/02/19 21:00 Constitutional: Yes: No Distress, Calm Eyes: Yes: Conjunctiva Clear, EOM Intact HENT: Yes: Normocephalic, Epistaxis. No: Rhinnorhea Neck: Yes: Trachea Midline. No: Lymphadenopathy Cardiovascular: Yes: Regular Rate and Rhythm, S1, S2 Respiratory: Yes: Regular. No: Rales (adecreased BS) Gastrointestinal: Yes: Normal Bowel Sounds (decreased BS at bases), Soft. No: Hepatomegaly, Tenderness ...Rectal Exam: Yes: Deferred Renal/: Yes: CVA Tenderness - Left. No: CVA Tenderness - Right Musculoskeletal: No: Back Pain, Joint Swelling Extremities: Yes: Other (L BKA) Edema: RLE: 2+ Neurological: Yes: Alert, Oriented Labs: CBC, BMP 03/02/19 12:20 03/02/19 12:20 Imaging - Results Chest X-ray: Report Reviewed Problem List - Problems (1) Acute on chronic heart failure Code(s): I50.9 - HEART FAILURE, UNSPECIFIED (2) ASHD (arteriosclerotic heart disease) Code(s): I25.10 - ATHSCL HEART DISEASE OF [place] CORONARY ARTERY W/O ANG PCTRS (3) CKD (chronic kidney disease) Code(s): N18.9 - CHRONIC KIDNEY DISEASE, UNSPECIFIED (4) Diabetes mellitus Code(s): E11.9 - TYPE 2 DIABETES MELLITUS WITHOUT COMPLICATIONS (5) PVD (peripheral vascular disease) Code(s): I73.9 - PERIPHERAL VASCULAR DISEASE, UNSPECIFIED (6) Hx of BKA Code(s): Z89.519 - ACQUIRED ABSENCE OF UNSPECIFIED LEG BELOW KNEE (7) Anxiety Code(s): F41.9 - ANXIETY DISORDER, UNSPECIFIED Assessment/Plan IV lasix, monitor Renal function Cont BB, ARB,ASA Cont other meds Pulmonary consulrt is appreciated Cardio consult AM labs Pt's conditon was reviewed w his , at bedside; all questions were answered Pt' conditionas and treatment was reviewed with his nurse
--- NOTE | 2019-03-03 12:47 | CON.PULM ---
Consult Consult Specialty:: PULM/CCM Referred by:: VALENTE Reason for Consultation:: SOB - History of Present Illness Chief Complaint: SOB History of Present Illness: 88 M, well known to me from previous admissions. Past medical history of COPD, CHF, bilateral chronic pleural effusions, HTN, recurrent UTIs secondary, DM, Left transmetatarsal amputation, on home O2 2L (only at night). Recent admission for CHF exacerbation and UTI. CT chest 02/25: bilateral moderate pleural effusions Right > Left. reports increasing edema of LE. He does take Lasix but only 20mg OD. No travel history or sick contacts. No fever or chills. No hemoptysis or night sweats. No history consistent with OSAS. CXR: bilateral pleural effusions and vascular congestion Right > Left. - History Source History Provided By: Patient, Family Member Limitations to Obtaining History: No Limitations - Past Medical History Cardio/Vascular: Yes: CAD (CABG), HTN, Mitral Insufficiency, Other (ICD for induced ventricular tachycardia) Pulmonary: Yes: Bronchitis, COPD, O2 Dependent, Pneumonia. No: Asthma, Previously Intubated, Pulmonary Embolus, Pulmonary Fibrosis, Sleep Apnea Gastrointestinal: Yes: Other (recent C diff colitis, gallstones, chronic cholecystitis) Renal/: Yes: Renal Failure (had ARF last month in September creat bumped to 2), BPH, Renal Calculi Infectious Disease: Yes: C-Diff Musculoskeletal: Yes: Other (L foot wound s/p partial amputation) Endocrine: Yes: Diabetes Mellitus, Other (diabetic neuropathy) - Past Surgical History Past Surgical History: Yes: AICD, Amputation (TMA), Bypass, CABG - Alcohol/Substance Use Hx Alcohol Use: No History of Substance Use: reports: None - Smoking History Smoking history: Former smoker Have you smoked in the past 12 months: No Aproximately how many cigarettes per day: 20 If you are a former smoker, when did you quit?: 2009 - Social History Usual Living Arrangement: With Spouse ADL: Family Assistance History of Recent Travel: No Home Medications - Allergies Allergies/Adverse Reactions: Allergies Allergy/AdvReac Type Severity Reaction Status Date / Time No Known Allergies Allergy Verified 01/06/19 23:47 - Home Medications Home Medications: Ambulatory Orders Ascorbate Calcium [Vitamin C] 500 mg PO DAILY 01/20/14 Aspirin [ASA -] 81 mg PO DAILY 01/20/14 Carvedilol 3.125 mg PO BID 01/20/14 Folic Acid - 1 mg PO DAILY 01/20/14 Pregabalin [Lyrica -] 50 mg PO HS 01/20/14 Ranitidine HCl [Zantac] 150 mg PO HS 01/20/14 Tamsulosin HCl [Flomax -] 0.4 mg PO HS 01/20/14 Levothyroxine [Synthroid -] 75 mcg PO DAILY 07/21/16 Ergocalciferol (Vitamin D2) [Vitamin D2] 2,000 unit PO DAILY 06/09/17 Furosemide [Lasix -] 20 mg PO DAILY 06/09/17 Insulin Glargine,Hum.rec.anlog [Lantus (10mL VIAL) -] 10 units SQ HS 06/09/17 Multivit-Min/FA/Lycopen/Lutein [Centrum Silver Tablet] 1 tab PO DAILY 06/09/17 Rosuvastatin Calcium 10 mg PO HS 06/09/17 Finasteride [Proscar -] 5 mg PO DAILY tablet 01/13/19 Losartan Potassium [Cozaar -] 12.5 mg PO DAILY #30 tablet 02/26/19 Family Disease History - Family Disease History Family Disease History: Heart Disease: Mother, Brother (liver [place]), [place]: Brother Physical Exam Vital Sings: Vital Signs Temperature 97.5 F L 03/03/19 06:00 Pulse Rate 67 03/03/19 06:00 Respiratory Rate 18 03/03/19 06:00 Blood Pressure 120/63 03/03/19 06:00 O2 Sat by Pulse Oximetry (%) 100 03/02/19 21:00 Constitutional: Yes: No Distress, Thin Eyes: Yes: Conjunctiva Clear, EOM Intact HENT: Yes: Atraumatic, Normocephalic Neck: Yes: Supple, Trachea Midline Cardiovascular: Yes: Regular Rate and Rhythm Respiratory: Yes: Cough, Diminished, On Nasal O2, Rales, Rhonchi, SOB, SOB on Exertion, Tachypnea. No: Accessory Muscle Use, Stridor, Wheezes ...Inspection: Yes: WNL ...Clubbing: No Gastrointestinal: Yes: Normal Bowel Sounds, Soft Musculoskeletal: Yes: Back Pain, Joint Stiffness Extremities: Yes: Amputation Edema: Yes Peripheral Pulses WNL: Yes Integumentary: Yes: WNL Neurological: Yes: WNL, Alert, Oriented ...Motor Strength: WNL Psychiatric: Yes: WNL, Alert, Oriented Labs: CBC, BMP 03/02/19 12:20 03/02/19 12:20 Imaging - Results Chest X-ray: Report Reviewed, Image Reviewed Cat Scan: Report Reviewed, Image Reviewed Problem List - Problems (1) Bilateral leg edema Code(s): R60.0 - LOCALIZED EDEMA (2) ASHD (arteriosclerotic heart disease) Code(s): I25.10 - ATHSCL HEART DISEASE OF [place] CORONARY ARTERY W/O ANG PCTRS (3) Acute on chronic systolic (congestive) heart failure Code(s): I50.23 - ACUTE ON CHRONIC SYSTOLIC (CONGESTIVE) HEART FAILURE (4) Anemia Code(s): D64.9 - ANEMIA, UNSPECIFIED Qualifiers: (5) BPH (benign prostatic hyperplasia) Code(s): N40.0 - BENIGN PROSTATIC HYPERPLASIA WITHOUT LOWER URINRY TRACT SYMP (6) Back pain Code(s): M54.9 - DORSALGIA, UNSPECIFIED (7) CAD (coronary artery disease) Code(s): I25.10 - ATHSCL HEART DISEASE OF [place] CORONARY ARTERY W/O ANG PCTRS Qualifiers: (8) CHF (congestive heart failure) Code(s): I50.9 - HEART FAILURE, UNSPECIFIED (9) CHF exacerbation Code(s): I50.9 - HEART FAILURE, UNSPECIFIED (10) CKD (chronic kidney disease) Code(s): N18.9 - CHRONIC KIDNEY DISEASE, UNSPECIFIED (11) COPD (chronic obstructive pulmonary disease) Code(s): J44.9 - CHRONIC OBSTRUCTIVE PULMONARY DISEASE, UNSPECIFIED (12) Carotid artery disease Code(s): I77.9 - DISORDER OF ARTERIES AND ARTERIOLES, UNSPECIFIED (13) Chronic renal failure Code(s): N18.9 - CHRONIC KIDNEY DISEASE, UNSPECIFIED (14) Chronic systolic heart failure Code(s): I50.22 - CHRONIC SYSTOLIC (CONGESTIVE) HEART FAILURE (15) Cough Code(s): R05 - COUGH (16) Diabetes mellitus Code(s): E11.9 - TYPE 2 DIABETES MELLITUS WITHOUT COMPLICATIONS (17) Dyspnea Code(s): R06.00 - DYSPNEA, UNSPECIFIED Qualifiers: (18) [place] (hard of hearing) Code(s): H91.90 - UNSPECIFIED HEARING LOSS, UNSPECIFIED EAR (19) HTN (hypertension) Code(s): I10 - ESSENTIAL (PRIMARY) HYPERTENSION Qualifiers: (20) Hx of CABG Code(s): Z95.1 - PRESENCE OF AORTOCORONARY BYPASS GRAFT (21) Hypercholesterolemia Code(s): E78.0 - PURE HYPERCHOLESTEROLEMIA * DO NOT USE * (22) Hypothyroidism Code(s): E03.9 - HYPOTHYROIDISM, UNSPECIFIED Qualifiers: (23) ICD (implantable cardioverter-defibrillator) in place Code(s): Z95.810 - PRESENCE OF AUTOMATIC (IMPLANTABLE) CARDIAC DEFIBRILLATOR (24) Peripheral arterial disease Code(s): I73.9 - PERIPHERAL VASCULAR DISEASE, UNSPECIFIED (25) Pleural effusion Code(s): J90 - PLEURAL EFFUSION, NOT ELSEWHERE CLASSIFIED (26) Systolic dysfunction with acute on chronic heart failure Code(s): I50.23 - ACUTE ON CHRONIC SYSTOLIC (CONGESTIVE) HEART FAILURE Assessment/Plan IMP: Low clinical suspicion of AE of COPD Low clinical suspicion of respiratory tract infection Lasix IVP Monitor off systemic steroids Monitor off ABX Daily weights O2 as needed VTE prophylaxis Follow I & O Will follow Thank you. Dr Diggs
[2019-03-03 13:51] LABS: HEMATOCRIT 29.1 % (35.4-49); HEMOGLOBIN 9.8 GM/dL (11.7-16.9); MCHC 33.6 g/dl (32.0-35.9); MEAN CELL VOLUME 101.2 fl (80-96); MEAN PLT VOLUME 9.6 fl (7.5-11.1); PLATELET COUNT 118 K/MM3 (134-434); RBC 2.88 M/mm3 (4.00-5.60); RDW 15.3 % (11.9-15.9); WHITE BLOOD COUNT 6.8 K/mm3 (4.0-10.0)
[2019-03-03 14:21] LABS: BLOOD UREA NITROGEN 63.2 mg/dL (7-18); CREATININE 1.9 mg/dL (0.55-1.3)
[2019-03-03 14:29] LABS: POTASSIUM 4.5 mmol/L (3.5-5.1)
--- NOTE | 2019-03-03 18:18 | CON.CARD ---
Consult Consult Specialty:: cardioogy Reason for Consultation:: SOB; hx systolic CHF - History of Present Illness Chief Complaint: Pt alert; says he gets "anxiety and panic attacks" when he feels SOB and is not allow to sit at bedside with legs dangling (even making the head of the bed nearly vertical does not help his breathing, he says). History of Present Illness: The patient is an 88 year old white male, with a significant past medical history of mild-moderate systolic CHF, s/p CABG, s/p ICD, HTN, recurrent UTIs secondary, DM, Left transmetatarsal amputation, on home O2 2L (only at night), and recent discharge from [facility] 02/27 for CHF exacerbation and UTI, who presents to the emergency department with, increased bilateral lower extremity edema. As per patients at bedside, upon his discharge his lower extremity edema was localized to the bilateral feet but has since progressed upward to the shins despite his Lasix compliance. endorses exertional dyspnea with minimal exertion since his admission which is unchanged. He denies any recent chest pain or palpitations. He denies any recent fevers, chills, headache or dizziness. He denies any recent nausea, vomit, diarrhea or constipation. He denies any recent dysuria, frequency, urgency or hematuria. Allergies: NKDA Primary Care Physician: Dr. Noonan at [employer] [employer] Manager Investment: Sales Development Executive: Dr. Keyon Fair Baseline O2 Saturation: 95% on room air - History Source History Provided By: Patient, Medical Record Limitations to Obtaining History: No Limitations - Past Medical History Cardio/Vascular: Yes: CAD (CABG), HTN, Mitral Insufficiency, Other (ICD for induced ventricular tachycardia) Pulmonary: Yes: Bronchitis, COPD, O2 Dependent, Pneumonia. No: Asthma, Previously Intubated, Pulmonary Embolus, Pulmonary Fibrosis, Sleep Apnea Gastrointestinal: Yes: Other (recent C diff colitis, gallstones, chronic cholecystitis) Renal/: Yes: Renal Failure (had ARF last month in September creat bumped to 2), BPH, Renal Calculi Infectious Disease: Yes: C-Diff Psych: Yes: Anxiety, Panic Musculoskeletal: Yes: Other (L foot wound s/p partial amputation) Endocrine: Yes: Diabetes Mellitus, Other (diabetic neuropathy) - Past Surgical History Past Surgical History: Yes: AICD, Amputation (TMA), Bypass, CABG - Alcohol/Substance Use Hx Alcohol Use: No History of Substance Use: reports: None - Smoking History Smoking history: Former smoker Have you smoked in the past 12 months: No Aproximately how many cigarettes per day: 20 If you are a former smoker, when did you quit?: 2009 - Social History Usual Living Arrangement: With Spouse ADL: Family Assistance History of Recent Travel: No Home Medications - Allergies Allergies/Adverse Reactions: Allergies Allergy/AdvReac Type Severity Reaction Status Date / Time No Known Allergies Allergy Verified 01/06/19 23:47 - Home Medications Home Medications: Ambulatory Orders Ascorbate Calcium [Vitamin C] 500 mg PO DAILY 01/20/14 Aspirin [ASA -] 81 mg PO DAILY 01/20/14 Carvedilol 3.125 mg PO BID 01/20/14 Folic Acid - 1 mg PO DAILY 01/20/14 Pregabalin [Lyrica -] 50 mg PO HS 01/20/14 Ranitidine HCl [Zantac] 150 mg PO HS 01/20/14 Tamsulosin HCl [Flomax -] 0.4 mg PO HS 01/20/14 Levothyroxine [Synthroid -] 75 mcg PO DAILY 07/21/16 Ergocalciferol (Vitamin D2) [Vitamin D2] 2,000 unit PO DAILY 06/09/17 Furosemide [Lasix -] 20 mg PO DAILY 06/09/17 Insulin Glargine,Hum.rec.anlog [Lantus (10mL VIAL) -] 10 units SQ HS 06/09/17 Multivit-Min/FA/Lycopen/Lutein [Centrum Silver Tablet] 1 tab PO DAILY 06/09/17 Rosuvastatin Calcium 10 mg PO HS 06/09/17 Finasteride [Proscar -] 5 mg PO DAILY tablet 01/13/19 Losartan Potassium [Cozaar -] 12.5 mg PO DAILY #30 tablet 02/26/19 Family Disease History - Family Disease History Family Disease History: Heart Disease: Mother, Brother (liver CA), CA: Brother Review of Systems - Review of Systems Constitutional: reports: Weakness Eyes: reports: No Symptoms HENT: reports: No Symptoms Neck: reports: No Symptoms Cardiovascular: reports: Shortness of Breath Respiratory: reports: Exercise Intolerance, SOB Gastrointestinal: reports: No Symptoms Genitourinary: reports: No Symptoms Breasts: reports: No Symptoms Reported Musculoskeletal: reports: Muscle Weakness Integumentary: reports: Other (s/p Lt foot partial amputation) Neurological: reports: Weakness Endocrine: reports: No Symptoms Hematology/Lymphatic: reports: No Symptoms Psychiatric: reports: Anxiety, Panic - Risk Factors Known Risk Factors: Yes: Age, Diabetes Mellitus, Gender, Hypertension, Physical Inactivity, Other (systolic CHF; s/p CABG; PAD) Vital Signs: Vital Signs Temperature 97.9 F 03/03/19 18:15 Pulse Rate 88 03/03/19 18:15 Respiratory Rate 18 03/03/19 18:15 Blood Pressure 128/67 03/03/19 18:15 O2 Sat by Pulse Oximetry (%) 100 03/03/19 09:00 Constitutional: Yes: Anxious, Thin Eyes: Yes: WNL HENT: Yes: WNL Neck: Yes: Supple Respiratory: Yes: Diminished, SOB on Exertion Gastrointestinal: Yes: Soft Renal/: No: Anuria Cardiovascular: Yes: Regular Rate and Rhythm JVD: Yes Carotid Bruit: No PMI: Displaced Heart Sounds: Yes: Split S2 Murmur: Yes: Systolic Murmur Musculoskeletal: Yes: Muscle Weakness Extremities: Yes: Cool Edema: No Integumentary: Yes: Other Neurological: Yes: Alert, Oriented, Weakness Psychiatric: Yes: Alert, Oriented, Other (anxiety) - Other Data Labs, Other Data: CBC, BMP 03/03/19 13:30 03/03/19 13:30 Abnormal Lab Results 03/03/19 03/03/19 13:30 13:30 RBC 2.88 L Hgb 9.8 L Hct 29.1 L MCV 101.2 H MCH 34.0 H Plt Count 118 L D Anion Gap 7 L BUN 63.2 H Creatinine 1.9 H Random Glucose 153 H Ejection Fraction %: LVEF < 40 % Imaging - Results Chest X-ray: Image Reviewed EKG: Image Reviewed Problem List - Problems (1) ICD (implantable cardioverter-defibrillator) in place Assessment/Plan: f/u mostr recent interrogation. Code(s): Z95.810 - PRESENCE OF AUTOMATIC (IMPLANTABLE) CARDIAC DEFIBRILLATOR (2) Renal dysfunction Code(s): N28.9 - DISORDER OF KIDNEY AND URETER, UNSPECIFIED (3) Acute on chronic systolic (congestive) heart failure Assessment/Plan: On Coreg and losartan in low doses; on furosemide IVP presently. TNI 0.02; BNP >13,000; +JVP. F/u BUN/Cr, electrolytes, daily weight, Is and Os. Allow pt to sit up at bedside or in chair (may require observation, given frail state). Code(s): I50.23 - ACUTE ON CHRONIC SYSTOLIC (CONGESTIVE) HEART FAILURE (4) Anemia Code(s): D64.9 - ANEMIA, UNSPECIFIED Qualifiers: (5) Hx of CABG Code(s): Z95.1 - PRESENCE OF AORTOCORONARY BYPASS GRAFT (6) Thrombocytopenia Code(s): D69.6 - THROMBOCYTOPENIA, UNSPECIFIED (7) Anxiety Code(s): F41.9 - ANXIETY DISORDER, UNSPECIFIED (8) Orthopnea Code(s): R06.01 - ORTHOPNEA
[2019-03-03] MEDS: RANITIDINE HCL 150 MG TABLET (FP) PO SCH (21:17)
[2019-03-03] MEDS: PREGABALIN 50 MG CAPSULE PO SCH (21:17)
[2019-03-03] MEDS: ROSUVASTATIN CA 10 MG TABLET (FP) PO SCH (21:17)
[2019-03-03] MEDS: TAMSULOSIN HCL 0.4 MG CAP PO SCH (21:17)
[2019-03-03] MEDS: INSULIN (LEVEMIR) 100 UNITS/ML UNITS SQ SCH (21:20)
[2019-03-04] MEDS: LEVOTHYROXINE NA 75 MCG TABLET (FP) PO SCH (06:23)
--- NOTE | 2019-03-04 07:21 | PN ---
Progress Note, Physician Chief Complaint: in bed NAD VSS no new c/o no SOB; general weakness, PT eval - Current Medication List Current Medications: Active Medications Albuterol Sulfate (Ventolin 0.083% Nebulizer Soln -) 1 amp NEB Q6H PRN PRN Reason: SHORT OF BREATH/WHEEZING Last Admin: 03/03/19 02:58 Dose: 1 amp Ascorbic Acid (Vitamin C -) 500 mg PO DAILY [facility] Last Admin: 03/03/19 10:33 Dose: 500 mg Aspirin (Asa -) 81 mg PO DAILY [facility] Last Admin: 03/03/19 10:33 Dose: 81 mg Carvedilol (Coreg -) 3.125 mg PO BID [facility] Last Admin: 03/03/19 21:17 Dose: 3.125 mg Cholecalciferol (Vitamin D3 -) 2,000 unit PO DAILY [facility] Last Admin: 03/03/19 10:32 Dose: 2,000 unit Finasteride (Proscar -) 5 mg PO DAILY [facility] Last Admin: 03/03/19 10:32 Dose: 5 mg Folic Acid (Folic Acid -) 1 mg PO DAILY [facility] Last Admin: 03/03/19 10:32 Dose: 1 mg Furosemide (Lasix Injection -) 20 mg IVPUSH DAILY [facility] Insulin Detemir (Levemir Vial) 10 units SQ HS [facility] Last Admin: 03/03/19 21:20 Dose: 10 units Levothyroxine Sodium (Synthroid -) 75 mcg PO DAILY@0700 [facility] Last Admin: 03/04/19 06:23 Dose: 75 mcg Losartan Potassium (Cozaar -) 12.5 mg PO DAILY [facility] Last Admin: 03/03/19 10:32 Dose: 12.5 mg Pregabalin (Lyrica -) 50 mg PO HS [facility] Last Admin: 03/03/19 21:17 Dose: 50 mg Ranitidine HCl (Zantac -) 150 mg PO HS [facility] Last Admin: 03/03/19 21:17 Dose: 150 mg Rosuvastatin Calcium (Crestor -) 10 mg PO HS [facility] Last Admin: 03/03/19 21:17 Dose: 10 mg Tamsulosin HCl (Flomax -) 0.4 mg PO [facility] Last Admin: 03/03/19 21:17 Dose: 0.4 mg - Objective Vital Signs: Vital Signs Temperature 98.0 F 03/04/19 06:00 Pulse Rate 65 03/04/19 06:00 Respiratory Rate 18 03/03/19 18:15 Blood Pressure 103/42 L 03/04/19 06:00 O2 Sat by Pulse Oximetry (%) 100 03/03/19 21:00 Constitutional: Yes: No Distress, Calm Eyes: Yes: Conjunctiva Clear HENT: Yes: Atraumatic Neck: Yes: Supple Cardiovascular: Yes: Regular Rate and Rhythm Respiratory: Yes: Diminished Gastrointestinal: Yes: Soft. No: Tenderness Genitourinary: No: Hematuria Musculoskeletal: No: Joint Stiffness, Joint Swelling Extremities: No: Calf Tenderness, Cold, Cool Edema: No (trace pretibial edema ) Integumentary: No: Rash, Venous Stasis Changes Neurological: Yes: WNL, Alert, Oriented ...Motor Strength: WNL Psychiatric: Yes: WNL, Alert, Oriented. No: Agitated, Suicidal Ideation Labs: CBC, BMP 03/03/19 13:30 03/03/19 13:30 - ....Imaging Other: Report Reviewed Assessment/Plan ASHD PVD COPD CHF legs edema general weakness s/p IV lasix; creat 1.9 slightly higher; d/w cardio switch to po lasix bid f./u labs; d/w pt will need PT rehab falls DVT decubs pfx
[2019-03-04 08:20] LABS: HEMATOCRIT 28.2 % (35.4-49); HEMOGLOBIN 9.6 GM/dL (11.7-16.9); MCH 34.6 pg (25.7-33.7); MCHC 34.1 g/dl (32.0-35.9); MEAN CELL VOLUME 101.4 fl (80-96); MEAN PLT VOLUME 9.4 fl (7.5-11.1); PLATELET COUNT 125 K/MM3 (134-434); RBC 2.78 M/mm3 (4.00-5.60); RDW 15.7 % (11.9-15.9); WHITE BLOOD COUNT 7.1 K/mm3 (4.0-10.0)
[2019-03-04 08:47] LABS: ALBUMIN 2.9 g/dl (3.4-5.0); BILIRUBIN,TOTAL 0.5 mg/dL (0.2-1); BLOOD UREA NITROGEN 65.8 mg/dL (7-18); CALCIUM 8.6 mg/dL (8.5-10.1); CREATININE 1.9 mg/dL (0.55-1.3); POTASSIUM 4.5 mmol/L (3.5-5.1)
--- NOTE | 2019-03-04 09:10 | PN ---
Progress Note, Physician Chief Complaint: Recurrent CHF History of Present Illness: Dyspnea and LE edema History of Present Illness: Patient is an 88 year old male with underlying history of CAD s/p CABG, PCI/ stent, mild-mod LV systolic dysfunction S/P ICD (Medtronic) for induced ventricular tachycardia most recent interrogation 06/27/2018, COPD on home O2 nightly, HTN, insulin dependent Type 2 diabetes mellitus, PAD with multiple revascularization and left transmetatarsal amputation, CKD and carotid stenosis , h/o cholecystectomy, recurrent UTI recent hospitalization for acute on CKD, hyponatremia and hyperkalemia in context of Bactrim use, recent d/c 02/27/2019 for CHF exacerbation and UTI, re-presented with recurrent weakness, dyspnea, cough and bilateral lower extremity edema despite Lasix compliance. Per , at baseline the patient was able to ambulate with his walker, however today he was unable to ambulate. The patient reports hes compliant with 20mg of Lasix once daily and diet. Denies NSAID use, chest pain, near or true syncope, palpitations, orthopnea or PND. Resumed on IV diuresis. Allergies: NKDA Primary Care Physician: Dr. 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 Keyon Fair Baseline O2 Saturation: 95% on room air - Current Medication List Current Medications: Active Medications Albuterol Sulfate (Ventolin 0.083% Nebulizer Soln -) 1 amp NEB Q6H PRN PRN Reason: SHORT OF BREATH/WHEEZING Last Admin: 03/03/19 02:58 Dose: 1 amp Ascorbic Acid (Vitamin C -) 500 mg PO DAILY [facility] Last Admin: 03/03/19 10:33 Dose: 500 mg Aspirin (Asa -) 81 mg PO DAILY [facility] Last Admin: 03/03/19 10:33 Dose: 81 mg Carvedilol (Coreg -) 3.125 mg PO BID [facility] Last Admin: 03/03/19 21:17 Dose: 3.125 mg Cholecalciferol (Vitamin D3 -) 2,000 unit PO DAILY [facility] Last Admin: 03/03/19 10:32 Dose: 2,000 unit Finasteride (Proscar -) 5 mg PO DAILY [facility] Last Admin: 03/03/19 10:32 Dose: 5 mg Folic Acid (Folic Acid -) 1 mg PO DAILY [facility] Last Admin: 03/03/19 10:32 Dose: 1 mg Furosemide (Lasix Injection -) 20 mg IVPUSH DAILY [facility] Insulin Detemir (Levemir Vial) 10 units SQ [facility] Last Admin: 03/03/19 21:20 Dose: 10 units Levothyroxine Sodium (Synthroid -) 75 mcg PO DAILY@0700 [facility] Last Admin: 03/04/19 06:23 Dose: 75 mcg Losartan Potassium (Cozaar -) 12.5 mg PO DAILY [facility] Last Admin: 03/03/19 10:32 Dose: 12.5 mg Pregabalin (Lyrica -) 50 mg PO [facility] Last Admin: 03/03/19 21:17 Dose: 50 mg Ranitidine HCl (Zantac -) 150 mg PO [facility] Last Admin: 03/03/19 21:17 Dose: 150 mg Rosuvastatin Calcium (Crestor -) 10 mg PO [facility] Last Admin: 03/03/19 21:17 Dose: 10 mg Tamsulosin HCl (Flomax -) 0.4 mg PO [facility] Last Admin: 03/03/19 21:17 Dose: 0.4 mg - Objective Vital Signs: Vital Signs Temperature 98.0 F 03/04/19 06:00 Pulse Rate 65 03/04/19 06:00 Respiratory Rate 18 03/03/19 18:15 Blood Pressure 103/42 L 03/04/19 06:00 O2 Sat by Pulse Oximetry (%) 100 03/03/19 21:00 Constitutional: Yes: No Distress Neck: Yes: Supple Cardiovascular: Yes: Regular Rate and Rhythm Respiratory: Yes: Regular, Diminished, On Nasal O2 Gastrointestinal: Yes: Normal Bowel Sounds, Soft Edema: Yes Edema: LLE: Trace, RLE: Trace Labs: CBC, BMP 03/04/19 07:33 03/04/19 07:33 - ....Imaging Chest X-ray: Report Reviewed (CXR: bilateral pleural effusions and vascular congestion Right > Left.) Problem List - Problems (1) Bilateral leg edema Code(s): R60.0 - LOCALIZED EDEMA (2) Hx of BKA Code(s): Z89.519 - ACQUIRED ABSENCE OF UNSPECIFIED LEG BELOW KNEE (3) ICD (implantable cardioverter-defibrillator) in place Code(s): Z95.810 - PRESENCE OF AUTOMATIC (IMPLANTABLE) CARDIAC DEFIBRILLATOR (4) Orthopnea Code(s): R06.01 - ORTHOPNEA (5) ASHD (arteriosclerotic heart disease) Code(s): I25.10 - ATHSCL HEART DISEASE OF [place] CORONARY ARTERY W/O ANG PCTRS (6) Acute on chronic systolic (congestive) heart failure Code(s): I50.23 - ACUTE ON CHRONIC SYSTOLIC (CONGESTIVE) HEART FAILURE (7) CAD (coronary artery disease) Code(s): I25.10 - ATHSCL HEART DISEASE OF [place] CORONARY ARTERY W/O ANG PCTRS Qualifiers: Coronary Disease-Associated Artery/Lesion type: [place] artery [place] vs. transplanted heart: [place] heart Associated angina: without angina Qualified Code(s): I25.10 - Atherosclerotic heart disease of [place] coronary artery without angina pectoris (8) CKD (chronic kidney disease) Code(s): N18.9 - CHRONIC KIDNEY DISEASE, UNSPECIFIED (9) COPD (chronic obstructive pulmonary disease) Code(s): J44.9 - CHRONIC OBSTRUCTIVE PULMONARY DISEASE, UNSPECIFIED Qualifiers: COPD type: unspecified COPD Qualified Code(s): J44.9 - Chronic obstructive pulmonary disease, unspecified (10) History of implantable cardiac defibrillator (ICD) Code(s): [id number] - (11) Hx of CABG Code(s): Z95.1 - PRESENCE OF AORTOCORONARY BYPASS GRAFT (12) Hypercholesterolemia Code(s): E78.0 - PURE HYPERCHOLESTEROLEMIA * DO NOT USE * (13) Pleural effusion Code(s): J90 - PLEURAL EFFUSION, NOT ELSEWHERE CLASSIFIED Assessment/Plan 07/21/2016 Echo: Moderate dilated with mild-mod decreased LV fxn, pacer RV, mild LAE, mod MR, mild TR 01/08/[address]: Mod bilateral effusions R>L 08/01/[address]: Mod bilateral effusions R>L, small pericardial effusions 08/02/2018 Echo: Mild-mod decreased LVEF 40-45%, normal RV size and fxn, mild LAE, mild MR, tr TR, [place], [place]. No pericardial effusion 1. 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 Acute on CKD with h/o hyperkalemia and hyponatremia resolved 3. CAD post CABG, angina pectoris 4. HTN 5. NIDDM 6. Hypercholesterolemia 7. Post ICD (Medtronic) for sustained ventricular tachycardia 8. Carotid stenosis 9. Hypothyroidism 10. PAD post RISK REDUCTION COUNSELOR and amputation (TMA) 11. Anemia post transfusion 12. BPH with UTI PLAN: 1. Resume oral diuresis (Lasix 20 bid) with monitor diuretic response, renal function and electrolytes 2. Continue ASA 81 mg QD, Carvedilol 3.125 mg BID and Losartan 12.5 mg QD as hemodynamics permit. Continue Crestor 10 mg QHS 3. PT for gait training->SNF 4. Completed empiric antibiotic course last admission 5. DVT and GI prophylaxis 6. Eventual f/u in office
[2019-03-04] MEDS: FOLIC ACID 1 MG TABLET (FP) PO SCH (10:00)
[2019-03-04] MEDS: ASPIRIN 81 MG CHEWABLE TABLETS PO SCH (10:00)
[2019-03-04] MEDS ORDERED: FUROSEMIDE 40 MG/4 ML INJECTABLE VIAL IVPUSH SCH (10:00)
[2019-03-04] MEDS: FINASTERIDE 5 MG TABLET (FP) PO SCH (10:00)
[2019-03-04] MEDS: ASCORBIC ACID 500 MG TABLET (FP) PO SCH (10:00)
[2019-03-04] MEDS: LOSARTAN POTASSIUM 25 MG TABLET PO SCH (10:01)
[2019-03-04] MEDS: CARVEDILOL 3.125 MG TABLET (FP) PO SCH ×2 (10:01→21:07)
[2019-03-04] MEDS: CHOLECALCIFEROL (VIT D3) 1,000 UNIT (25 MCG) TABLET PO SCH (10:02)
[2019-03-04] MEDS: FUROSEMIDE 40 MG/4 ML INJECTABLE VIAL IVPUSH ONE (10:02)
[2019-03-04 12:46] VITALS: BMI 21.1
[2019-03-04] MEDS: FUROSEMIDE 20 MG TABLET (FP) PO SCH (14:28)
--- NOTE | 2019-03-04 14:28 | PN ---
Progress Note (short form) - Note Progress Note: PULMONARY States breathing better. +nonproductive cough. No chest pain. Vital Signs Period Temp Pulse Resp BP Sys/Blanca Pulse Ox Last 24 Hr 97.5 F-98.0 F 65-88 18-18 98-130/42-67 100-100 Gen: NAD at rest Heart: RRR Lung: decreased breath sounds at the bases Abd: soft, nontender Ext: distal edema CBC, BMP 03/04/19 07:33 03/04/19 07:33 A/P Acute on Chronic Systolic/Diastolic Heart Failure Acute on Chronic Renal Failure CAD s/p CABG s/p ICD HTN DM Hypercholesterolemia Hypothyroidism PAD Anemia - continue lasix - monitor urine output, creatinine - O2 as needed - rehab/PT - DVT prophylaxis
[2019-03-04] MEDS: RANITIDINE HCL 150 MG TABLET (FP) PO SCH (21:06)
[2019-03-04] MEDS: ROSUVASTATIN CA 10 MG TABLET (FP) PO SCH (21:06)
[2019-03-04] MEDS: PREGABALIN 50 MG CAPSULE PO SCH (21:07)
[2019-03-04] MEDS: INSULIN (LEVEMIR) 100 UNITS/ML UNITS SQ SCH (21:07)
[2019-03-04] MEDS: TAMSULOSIN HCL 0.4 MG CAP PO SCH (21:07)
[2019-03-05] MEDS: LEVOTHYROXINE NA 75 MCG TABLET (FP) PO SCH (06:09)
[2019-03-05] MEDS: FUROSEMIDE 20 MG TABLET (FP) PO SCH ×2 (06:09→15:10)
[2019-03-05] MEDS ORDERED: INSULIN (LEVEMIR) 100 UNITS/ML UNITS SQ ONE (06:36)
[2019-03-05 07:37] LABS: BASO % 0.4 % (0-2.0); EOS % 0.7 % (0-4.5); HEMOGLOBIN 9.5 GM/dL (11.7-16.9); LYMPH % 7.4 % (8-40); MCH 34.6 pg (25.7-33.7); MCHC 33.9 g/dl (32.0-35.9); MEAN CELL VOLUME 101.9 fl (80-96); MEAN PLT VOLUME 9.5 fl (7.5-11.1); MONO % 11.1 % (3.8-10.2); NEUT % 80.4 % (42.8-82.8); PLATELET COUNT 111 K/MM3 (134-434); RBC 2.75 M/mm3 (4.00-5.60); RDW 15.7 % (11.9-15.9); WHITE BLOOD COUNT 6.9 K/mm3 (4.0-10.0)
[2019-03-05 08:06] LABS: BLOOD UREA NITROGEN 70.7 mg/dL (7-18); CALCIUM 8.7 mg/dL (8.5-10.1); CREATININE 1.7 mg/dL (0.55-1.3); POTASSIUM 4.6 mmol/L (3.5-5.1)
--- NOTE | 2019-03-05 08:44 | PN ---
Progress Note, Physician Chief Complaint: pt in bed NAD no new c/o; walked 3 feet with PT, needs assistance has no CP/SOB, some dry cough - improved; legs trace pretibial edema switched form IV lasix to po 20 mg po bid d/w cardio dr Garcia, creat better today d/w pt the above, pt was in [facility] before and he was not happy there, would like to go home but is total care and needs help ambulating; d/w about SNF she said she would like him to get PT here BID and eventually to go to SNF - [facility]; expressed concer he has only 17 days left for PT SNF for this year; advised to d/w supportive employment case 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 - Current Medication List Current Medications: Active Medications Albuterol Sulfate (Ventolin 0.083% Nebulizer Soln -) 1 amp NEB Q6H PRN PRN Reason: SHORT OF BREATH/WHEEZING Last Admin: 03/03/19 02:58 Dose: 1 amp Ascorbic Acid (Vitamin C -) 500 mg PO DAILY [facility] Last Admin: 03/04/19 10:00 Dose: 500 mg Aspirin (Asa -) 81 mg PO DAILY [facility] Last Admin: 03/04/19 10:00 Dose: 81 mg Carvedilol (Coreg -) 3.125 mg PO BID [facility] Last Admin: 03/04/19 21:07 Dose: 3.125 mg Cholecalciferol (Vitamin D3 -) 2,000 unit PO DAILY [facility] Last Admin: 03/04/19 10:02 Dose: 2,000 unit Finasteride (Proscar -) 5 mg PO DAILY [facility] Last Admin: 03/04/19 10:00 Dose: 5 mg Folic Acid (Folic Acid -) 1 mg PO DAILY [facility] Last Admin: 03/04/19 10:00 Dose: 1 mg Furosemide (Lasix -) 20 mg PO BID@0600,1400 [facility] Last Admin: 03/05/19 06:09 Dose: 20 mg Insulin Detemir (Levemir Vial) 10 units SQ HS [facility] Last Admin: 03/04/19 21:07 Dose: 10 units Levothyroxine Sodium (Synthroid -) 75 mcg PO DAILY@0700 [facility] Last Admin: 03/05/19 06:09 Dose: 75 mcg Losartan Potassium (Cozaar -) 12.5 mg PO DAILY [facility] Last Admin: 03/04/19 10:01 Dose: 12.5 mg Pregabalin (Lyrica -) 50 mg PO [facility] Last Admin: 03/04/19 21:07 Dose: 50 mg Ranitidine HCl (Zantac -) 150 mg PO [facility] Last Admin: 03/04/19 21:06 Dose: 150 mg Rosuvastatin Calcium (Crestor -) 10 mg PO [facility] Last Admin: 03/04/19 21:06 Dose: 10 mg Tamsulosin HCl (Flomax -) 0.4 mg PO [facility] Last Admin: 03/04/19 21:07 Dose: 0.4 mg - Objective Vital Signs: Vital Signs Temperature 97.5 F L 03/05/19 06:00 Pulse Rate 62 03/05/19 06:00 Respiratory Rate 19 03/04/19 22:21 Blood Pressure 108/54 L 03/05/19 06:00 O2 Sat by Pulse Oximetry (%) 100 03/04/19 21:00 Constitutional: Yes: No Distress, Calm Eyes: Yes: Conjunctiva Clear HENT: Yes: Atraumatic Neck: Yes: Supple Cardiovascular: Yes: Regular Rate and Rhythm Respiratory: Yes: CTA Bilaterally Gastrointestinal: Yes: Soft. No: Tenderness Genitourinary: No: CVA Tenderness - Left, CVA Tenderness - Right, Hematuria Musculoskeletal: No: Joint Stiffness, Joint Swelling Extremities: No: Cold, Cool Edema: No (trace) Integumentary: No: Rash, Venous Stasis Changes Neurological: Yes: WNL, Alert, Oriented ...Motor Strength: WNL Psychiatric: Yes: WNL, Alert, Oriented. No: Agitated, Suicidal Ideation Labs: CBC, BMP 03/05/19 06:47 03/05/19 06:47 - ....Imaging Other: Report Reviewed Assessment/Plan 88 yom ASHD PVD COPD CHF legs edema, general weakness s/p IV lasix; now on po BID - creat 1.7 slightly better; d/w cardio switch to po lasix bid; trace pretibial edema (improved) and CXR improved from before; d/w pt's would not push diureses more at this point, pt is asymptomatic, more lasix could damage his kidneys; will need close f/u with vascular sx dr Small, cardiology and pulmoanry and renal outpt f./u labs; d/w pt will need PT rehab at SNF; advised to d/w CM d.w staff falls DVT decubs pfx
[2019-03-05] MEDS: ASCORBIC ACID 500 MG TABLET (FP) PO SCH (10:08)
[2019-03-05] MEDS: LOSARTAN POTASSIUM 25 MG TABLET PO SCH (10:08)
[2019-03-05] MEDS: CHOLECALCIFEROL (VIT D3) 1,000 UNIT (25 MCG) TABLET PO SCH (10:08)
[2019-03-05] MEDS: FOLIC ACID 1 MG TABLET (FP) PO SCH (10:08)
[2019-03-05] MEDS: ASPIRIN 81 MG CHEWABLE TABLETS PO SCH (10:09)
[2019-03-05] MEDS: CARVEDILOL 3.125 MG TABLET (FP) PO SCH (10:09)
[2019-03-05] MEDS: FINASTERIDE 5 MG TABLET (FP) PO SCH (10:26)
--- NOTE | 2019-03-05 13:22 | DS ---
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 f/u as advised Condition: Stable - Instructions Diet, Activity, Other Instructions: needs PT rehab for ambulation falls, decubs precautions; turn in bed for decubs PFX; LS ADA diet; watch legs for wounds / fluid blisters to take lasix 20 mg po BID and check labs CBC CMP q1-2 weeks good po hydration cardiology, pulmonary, PCP, renal/ and vascular surgery f/u after DC from [facility] If worse or recurrent c/o Referrals: Manas Stephens MD [Staff Physician] - Shaun Nunez MD [Staff Physician] - Fransisco Garcia MD [Staff Physician] - Loyd Small MD [Staff Physician] - Latanya Kirk MD [Staff Physician] - Disposition: [facility] F[facility] - Home Medications Comprehensive Discharge Medication List: Ambulatory Orders Ascorbate Calcium [Vitamin C] 500 mg PO DAILY 01/20/14 Aspirin [ASA -] 81 mg PO DAILY 01/20/14 Carvedilol 3.125 mg PO BID 01/20/14 Folic Acid - 1 mg PO DAILY 01/20/14 Pregabalin [Lyrica -] 50 mg PO HS 01/20/14 Ranitidine HCl [Zantac] 150 mg PO HS 01/20/14 Tamsulosin HCl [Flomax -] 0.4 mg PO HS 01/20/14 Levothyroxine [Synthroid -] 75 mcg PO DAILY 07/21/16 Ergocalciferol (Vitamin D2) [Vitamin D2] 2,000 unit PO DAILY 06/09/17 Insulin Glargine,Hum.rec.anlog [Lantus (10mL VIAL) -] 10 units SQ HS 06/09/17 Multivit-Min/FA/Lycopen/Lutein [Centrum Silver Tablet] 1 tab PO DAILY 06/09/17 Rosuvastatin Calcium 10 mg PO HS 06/09/17 Finasteride [Proscar -] 5 mg PO DAILY tablet 01/13/19 Losartan Potassium [Cozaar -] 12.5 mg PO DAILY #30 tablet 02/26/19 Albuterol 0.083% Nebulizer [place] [Ventolin 0.083% Nebulizer Soln -] 1 amp NEB Q6H PRN amp 03/05/19 Furosemide [Lasix -] 20 mg PO BID@0600,1400 tablet 03/05/19
--- NOTE | 2019-03-05 14:01 | PN ---
Progress Note (short form) - Note Progress Note: Chief Complaint: Events noted, notes reviewed, denies any chest pain or dyspnea History of Present Illness: See and examined. Events noted, notes reviewed, denies any chest pain or dyspnea 07/21/2016 echocardiography revealed moderately dilated LV with mild-moderate decrease in LV function, pacer RV, mild LAE, moderate MR, mild TR 08/02/2018 echocardiography revealed mild to moderately decreased LVEF 40-45%, normal RV size and function, mild LAE, mild MR, trace TR and AR Medications: Current Medications Albuterol Sulfate (Ventolin 0.083% Nebulizer Soln -) 1 amp NEB Q6H PRN PRN Reason: SHORT OF BREATH/WHEEZING Last Admin: 03/03/19 02:58 Dose: 1 amp Ascorbic Acid (Vitamin C -) 500 mg PO DAILY [facility] Last Admin: 03/05/19 10:08 Dose: 500 mg Aspirin (Asa -) 81 mg PO DAILY [facility] Last Admin: 03/05/19 10:09 Dose: 81 mg Carvedilol (Coreg -) 3.125 mg PO BID [facility] Last Admin: 03/05/19 10:09 Dose: 3.125 mg Cholecalciferol (Vitamin D3 -) 2,000 unit PO DAILY [facility] Last Admin: 03/05/19 10:08 Dose: 2,000 unit Finasteride (Proscar -) 5 mg PO DAILY [facility] Last Admin: 03/05/19 10:26 Dose: 5 mg Folic Acid (Folic Acid -) 1 mg PO DAILY [facility] Last Admin: 03/05/19 10:08 Dose: 1 mg Furosemide (Lasix -) 20 mg PO BID@0600,1400 [facility] Last Admin: 03/05/19 06:09 Dose: 20 mg Insulin Detemir (Levemir Vial) 10 units SQ [facility] Last Admin: 03/04/19 21:07 Dose: 10 units Levothyroxine Sodium (Synthroid -) 75 mcg PO DAILY@0700 [facility] Last Admin: 03/05/19 06:09 Dose: 75 mcg Losartan Potassium (Cozaar -) 12.5 mg PO DAILY [facility] Last Admin: 03/05/19 10:08 Dose: 12.5 mg Pregabalin (Lyrica -) 50 mg PO [facility] Last Admin: 03/04/19 21:07 Dose: 50 mg Ranitidine HCl (Zantac -) 150 mg PO [facility] Last Admin: 03/04/19 21:06 Dose: 150 mg Rosuvastatin Calcium (Crestor -) 10 mg PO [facility] Last Admin: 03/04/19 21:06 Dose: 10 mg Tamsulosin HCl (Flomax -) 0.4 mg PO [facility] Last Admin: 03/04/19 21:07 Dose: 0.4 mg Vital Signs: Last Vital Signs Temp Pulse Resp BP Pulse Ox 97.5 F L 68 18 107/42 L 100 03/05/19 06:00 03/05/19 10:00 03/05/19 10:00 03/05/19 10:00 03/05/19 09:00 Intake & Output 03/02/19 03/03/19 03/04/19 03/05/19 23:59 23:59 23:59 23:59 Intake Total 903 442 9162 480 Output Total 350 325 350 Balance 846 59 5415 130 Weight 170 lb 169 lb 147 lb 146 lb 8 oz Neck: Supple Negative JVD Respiratory: Diminished Breath Sounds at the Bases Cardiovascular: S! S2 Regular Rate and Rhythm Gastrointestinal: Soft Benign Normal Bowel Sounds Ext: Negative Edema Labs: CBC, BMP 03/05/19 06:47 03/05/19 06:47 Assessment/Plan ASSESSMENT: 1. 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 CAD post CABG, angina pectoris 3. HTN 4. NIDDM 5. Hypercholesterolemia 6. 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 Carotid stenosis 8. Hypothyroidism 9. Acute on CKD with hyperkalemia and hyponatremia improved 10. PAD post [employer] and amputation (TMA) 11. Anemia post-transfusion PLAN: 1. Continue Lasix and Cozaar therapies with caution and close monitoring of renal function and electrolytes 2. Continue ASA with caution and close monitoring of hemoglobin level 3. Continue Carvedilol, hemodynamics permitting 4. Continue Crestor 5. Patient can be discharge from the cardiovascular point of view and to followup with Dr. Keyon Fair/cardiology post discharge Donnie Carbajal MD
[2019-03-05 15:03] VITALS: BP 102/65; PULSE 64; TEMP 97.6
== END 2019-03-05 18:19 | DRG 291 ==
LOC: JER 11:11 → JERBED 15:21 → J6S 18:11
PROVIDERS: ADMIT Internal Medicine; ATTEND Internal Medicine
DX: I13.0 Hypertensive heart and chronic kidney disease with heart failure and stage 1 through stage 4 chronic kidney disease, or unspecified chronic kidney disease (principal); I50.23 Acute on chronic systolic (congestive) heart failure; N17.9 Acute kidney failure, unspecified; E87.1 Hypo-osmolality and hyponatremia; N18.9 Chronic kidney disease, unspecified; E11.9 Type 2 diabetes mellitus without complications; Z95.810 Presence of automatic (implantable) cardiac defibrillator; E78.5 Hyperlipidemia, unspecified; E03.9 Hypothyroidism, unspecified; I25.119 Atherosclerotic heart disease of native coronary artery with unspecified angina pectoris; E87.5 Hyperkalemia; D64.9 Anemia, unspecified; F41.9 Anxiety disorder, unspecified; I73.9 Peripheral vascular disease, unspecified; Z95.1 Presence of aortocoronary bypass graft
CPT/HCPCS: 36415; 71045-TC-FY; 80048; 80053; 82550; 82553; 82962; 83880; 84484; 85025; 85027; 93005; 93010; 94640; 97116-GP; 97162-GP; 99283-25

== ENCOUNTER 2020-01-13 00:48 | Inpatient (IN) | payer OTHER, MEDICARE ==
--- NOTE | 2020-01-13 01:20 | PDOC ---
Attending Attestation - Resident Resident Name: Vivienne Murphy - ED Attending Attestation I have performed the following: I have examined & evaluated the patient, The case was reviewed & discussed with the resident, I agree w/resident's findings & plan, Exceptions are as noted - HPI HPI: 89 yo M history CHF s/p AICD, CAD s/p stents, HTN, HL, CKD, BPH, hypothyroid presents via EMS with hematuria, dysuria since this evening. Symptoms are a ssociated with lower abd pain, urgency, frequency. No recent fever/chills, cp, SOB, N/V/D. - Physicial Exam PE: GENERAL: Awake, alert, and fully oriented, in no acute distress. Appears pale, chronically debilitated HEAD: No signs of trauma EYES: PERRLA, EOMI, sclera anicteric, conjunctiva clear ENT: Auricles normal inspection, hearing grossly normal, nares patent, oropharynx clear without exudates. Moist mucosa NECK: Normal ROM, supple, no lymphadenopathy, JVD, or masses LUNGS: Breath sounds equal, clear to auscultation bilaterally. No wheezes, and no crackles HEART: Regular rate and rhythm, normal S1 and S2, no murmurs, rubs or gallops ABDOMEN: Soft, nontender, normoactive bowel sounds. No guarding, no rebound. No masses EXTREMITIES: Normal range of motion. No clubbing or cyanosis. +Partial L foot amputation, well-healed. +Small ulcers to B/L lateral lower legs, no drainage, no erythema. NEUROLOGICAL: Cranial nerves II through XII grossly intact. Normal speech. Motor and sensation intact SKIN: Warm, dry, normal turgor. Multiple ecchymoses to the arms B/L : +Blood with clots in diaper. - Medical Decision Making 01/13/20 02:54 Pt anemic, similar to prior labs. Not on blood thinners. Noted to have large amount of blood in the diaper, suggesting that his repeat labs may show a decrease in Hb. Will plan for admission. Awaiting UA sample. Discharge - Discharge Information Problems reviewed: Yes Clinical Impression/Diagnosis: UTI (lower urinary tract infection), Bleeding of penis Hematuria Qualifiers: Hematuria type: gross Qualified Code(s): R31.0 - Gross hematuria CKD (chronic kidney disease) Qualifiers: Chronic kidney disease stage: unspecified stage Qualified Code(s): N18.9 - Chronic kidney disease, unspecified Condition: Stable - Follow up/Referral - Patient Discharge Instructions - Post Discharge Activity
[2020-01-13] MEDS ORDERED: COD LIVER OIL/ZINC OXIDE PASTE 56 GM TUBE TP PRN (01:35)
[2020-01-13 01:36] LABS: HEMATOCRIT 25.3 % (35.4-49); HEMOGLOBIN 8.2 GM/dL (11.7-16.9); LYMPH % 5.4 % (8-40); MCH 34.2 pg (25.7-33.7); MCHC 32.5 g/dl (32.0-35.9); MEAN CELL VOLUME 105.4 fl (80-96); MEAN PLT VOLUME 10.1 fl (7.5-11.1); MONO % 9.8 % (3.8-10.2); NEUT % 78.8 % (42.8-82.8); PLATELET COUNT 86 K/MM3 (134-434); RDW 16.2 % (11.9-15.9); WHITE BLOOD COUNT 4.8 K/mm3 (4.0-10.0)
[2020-01-13 01:50] LABS: INR 1.26 (0.83-1.09); PROTHROMBIN TIME (PATIENT) 14.9 SEC (9.7-13.0)
[2020-01-13 02:02] LABS: ALBUMIN 2.5 g/dl (3.4-5.0); BILIRUBIN,TOTAL 0.4 mg/dL (0.2-1); BLOOD UREA NITROGEN 89.3 mg/dL (7-18); CALCIUM 8.5 mg/dL (8.5-10.1); CREATININE 2.4 mg/dL (0.55-1.3); POTASSIUM 4.2 mmol/L (3.5-5.1); TOT PROT 6.7 g/dl (6.4-8.2)
[2020-01-13 02:10] LABS: PLATELET ESTIMATE DECREASED
[2020-01-13] MEDS ORDERED: ACETAMINOPHEN 1000 MG/100 ML VIAL (NON FORMULARY) IVPB ONE (02:28)
--- NOTE | 2020-01-13 02:31 | PDOC ---
History of Present Illness - General Chief Complaint: Hematuria Stated Complaint: PENILE BLEED Time Seen by Provider: 01/13/20 00:51 History Source: Patient, Spouse Exam Limitations: No Limitations - History of Present Illness Initial Comments: Pt is an 89 yo M, with PMH significant for multiple comorbidities including CHF (w ICD), CAD (s/p stents), HTN, HLD, CKD, BPH, and hypothyroidism, who is presenting via EMS from home for complaints of urinary burning and bleeding from his penis since this evening. Pt complains of lower abdominal pain, dysuria, urgency, and frequency. Pt denies any recent fevers/chills, headache, vision changes, syncope, chest pain, palpitations, SOB, nausea/vomiting, diarrhea/constipation, or leg swelling. Allergies: KORY PCP: Dr. Joie Noonan Cars: Dr. Manjula JONES: Dr. Nunez Social: Pt denies any cigarette, alcohol, or drug use. Former cigarette smoker, Pt denies any recent travel or sick contacts. Surgical: CABG, ICD and stent placements, cholecystectomy Family: no relevant history. 01/13/20 03:59 01/13/20 04:29 Past History - Travel History Traveled outside of the country in the last 30 days: No Close contact w/someone who was outside of country & ill: No - Medical History Allergies/Adverse Reactions: Allergies Allergy/AdvReac Type Severity Reaction Status Date / Time sulfamethazine Allergy Verified 12/26/19 11:09 trimethoprim Allergy Verified 12/26/19 11:09 Home Medications: Ambulatory Orders Ascorbate Calcium [Vitamin C] 500 mg PO DAILY 01/20/14 Aspirin [ASA -] 81 mg PO DAILY 01/20/14 Carvedilol 3.125 mg PO BID 01/20/14 Folic Acid - 1 mg PO DAILY 01/20/14 Pregabalin [Lyrica -] 50 mg PO HS 01/20/14 Tamsulosin HCl [Flomax -] 0.4 mg PO HS 01/20/14 Levothyroxine [Synthroid -] 75 mcg PO DAILY 07/21/16 Ergocalciferol (Vitamin D2) [Vitamin D2] 2,000 unit PO DAILY 06/09/17 Insulin Glargine,Hum.rec.anlog [Lantus (10mL VIAL) -] 10 units SQ HS 06/09/17 Multivit-Min/FA/Lycopen/Lutein [Centrum Silver Tablet] 1 tab PO DAILY 06/09/17 Rosuvastatin Calcium 10 mg PO HS 06/09/17 Finasteride [Proscar -] 5 mg PO DAILY tablet 01/13/19 Famotidine [Pepcid] 1 tab PO DAILY 08/07/19 Acetaminophen [Tylenol .Regular Strength -] 650 mg PO Q6H PRN tablet 01/01/20 Bacitracin - [Bacitracin Topical Ointment -] 1 applic TP DAILY tube 01/01/20 Bacitracin - [Bacitracin Topical Ointment -] 1 applic TP DAILY tube 01/01/20 Furosemide [Lasix -] 40 mg PO BID #180 tab 01/01/20 Polyethylene Glycol 3350 [Miralax 119 gm Btl -] 17 gm PO BID bottle 01/01/20 Anemia: Yes Asthma: No Cancer: No Cardiac Disorders: Yes (CAD, PVD, CABG, stents) COPD: Yes CHF: Yes Diabetes: Yes Disorders: Yes (BPH) HTN: Yes Hypercholesterolemia: Yes Kidney Stones: Yes Thyroid Disease: Yes (HYPOTHYROID) - Surgical History Abdominal Surgery: (gallbladder removal 2015) Appendectomy: No Cardiac Surgery: Yes (cabg x 3/defibrillator implant) Cholecystectomy: Yes (2015) Lung Surgery: No Neurologic Surgery: No Orthopedic Surgery: Yes (Left Foot Amputation) - Immunization History Td Vaccination: No TDAP Vaccination: No Immunization Up to Date: Yes - Psycho-Social/Smoking History Smoking Status: No Smoking History: Unknown if ever smoked Years of Tobacco Use: 50 Have you smoked in the past 12 months: No Number of Cigarettes Smoked Daily: 20 If you are a former smoker, when did you quit?: 2010 Cigars Per Day: 0 - Substance Abuse Hx (Audit-C & DAST Scrn) How often the patient has a drink containing alcohol: Never Score: In Men: 4 or > Positive; In Women: 3 or > Positive: 0 Screen Result (Pos requires Nsg. Audit-10AR): Negative In the last yr the pt used illegal drug/Rx for NonMed reason: No Score: Yes response is considered Positive: 0 Screen Result (Positive result requires Nsg. DAST-10): Negative Review of Systems - Review of Systems Able to Perform ROS?: No Is the patient limited [place]ian proficient: No Constitutional: Yes: Weight Stable. No: Chills, Diaphoresis, Fever, Loss of Appetite, Malaise, Weakness HEENTM: No: Recent change in vision, Nose Congestion, Throat Pain, Throat Swelling, Difficulty Swallowing Respiratory: No: Cough, Orthopnea, Shortness of Breath Cardiac (ROS): No: Chest Pain, Edema, Irregular Heart Rate, Lightheadedness, Palpitations, Syncope, Chest Tightness ABD/GI: Yes: See HPI. No: Abdominal Distended, Constipated, Diarrhea, Nausea, Poor Appetite, Poor Fluid Intake, Vomiting, Abdominal cramping : Yes: See HPI, Burning, Dysuria, Frequency, Hematuria, Pain, Urgency. No: Discharge, Flank Pain, Testicular Mass, Testicular Swelling, Lesions, Testicular Pain Musculoskeletal: No: Back Pain, Muscle Pain Integumentary: No: Rash Neurological: No: Headache, Numbness, Weakness, Dizziness Psychiatric: No: Sleep Pattern Change, Change in Appetite Endocrine: No: Increased Urine, Change in Weight Hematologic/Lymphatic: Yes: Anemia. No: Blood Clots, Easy Bleeding, Easy Bruising All Other Systems: Reviewed and Negative *Physical Exam - Vital Signs Last Vital Signs Temp Pulse Resp BP Pulse Ox 97.8 F 63 16 106/45 L 100 01/13/20 00:53 01/13/20 00:53 01/13/20 00:53 01/13/20 00:53 01/13/20 00:53 - Physical Exam Vitals stable, pt afebrile. Pt in NAD, thin body habitus. Pt alert and oriented x3. branch credit counselor generally intact, muscular strength and sensation intact. No midline spinal tenderness, step-offs, or crepitus. Head normocephalic, atraumatic. Eyes PERRLA, EOMI. Oropharynx without erythema or exudates, no LAD b/l. No nasal congestion. Hearing intact. Clear heart sounds, S1/S2, no JVD, b/l pedal edema, or heart murmur. Clear lung sounds, no respiratory distress, wheezes, crackles, or accessory muscle use. Suprapubic TTP, with no rebound, no guarding. No CVA TTP. Abdomen soft, non- distended, and with normoactive bowel sounds. Gross bleeding with clots from penis, no discharge or lesions, tip of penis/urethra with tenderness. +erythema in groin. Skin without jaundice or rash. 01/13/20 04:50 ED Treatment Course - LABORATORY CBC & Chemistry Diagram: 01/13/20 01:24 01/13/20 01:24 - ADDITIONAL ORDERS Additional order review: Laboratory Results 01/13/20 01/13/20 01/13/20 01:24 01:24 01:24 PT with INR INR PTT (Actin FS) 33.9 Sodium Potassium Chloride Carbon Dioxide Anion Gap BUN Creatinine Est GFR (CKD-EPI)AfAm Est GFR (CKD-EPI)NonAf Random Glucose Lactic Acid 1.3 Calcium Total Bilirubin AST ALT Alkaline Phosphatase Total Protein Albumin Blood Type A POSITIVE Antibody Screen Negative 01/13/20 01/13/20 01:24 01:24 PT with INR 14.90 H INR 1.26 H PTT (Actin FS) Sodium 143 Potassium 4.2 Chloride 108 H Carbon Dioxide 29 Anion Gap 6 L BUN 89.3 H Creatinine 2.4 H Est GFR (CKD-EPI)AfAm 26.90 Est GFR (CKD-EPI)NonAf 23.21 Random Glucose 179 H Lactic Acid Calcium 8.5 Total Bilirubin 0.4 AST 27 ALT 28 Alkaline Phosphatase 92 Total Protein 6.7 Albumin 2.5 L Blood Type Antibody Screen 01/13/20 01:24 RBC 2.40 L MCV 105.4 H MCHC 32.5 RDW 16.2 H MPV 10.1 Neutrophils % 78.8 Lymphocytes % 5.4 L Monocytes % 9.8 Eosinophils % 5.0 H Basophils % 1.0 Medical Decision Making - Medical Decision Making Pt was seen at bedside, also will be seen by attending Dr. Srivastava. Pt presenting with dysuria, urgency, frequency, hematuria with clots; pt has hx or recurrent UTIs (heath-sensitive cultures). Concerning for UTI vs hemorrhagic cystitis. Pt has no radiating flank or groin pain, less likely nephrolithiasis or pyelonephritis. No testicular pain or swelling on exam. No known AAA or abdominal vascular issues concerning for fistula. Provided dessitin, topical lidocaine jelly, 1 g IV tylenol for improvement of pain and diaper rash. Will continue to reassess pt and monitor for symptomatic improvement. ECG: Atrial-sensed ventricular-paced rhythm. No TWIs or significant ST segment changes. No significant changes from prior ECG (12/26/2019). 01/13/20 04:51 CBC with stable anemia CMP with CKD at pts baseline UA with +LE, +bacteria, +nitrites -- providing 1 g ceftriaxone Pt admitted to Dr. Noonan. Requires IV abx and pt should be evaluated for anemia/stability of H/H considering significant hematuria with clots, anemic at baseline. Placed consult for Urology. 01/13/20 04:54 Discharge - Discharge Information Problems reviewed: Yes Clinical Impression/Diagnosis: UTI (lower urinary tract infection), Bleeding of penis Hematuria Qualifiers: Hematuria type: gross Qualified Code(s): R31.0 - Gross hematuria CKD (chronic kidney disease) Qualifiers: Chronic kidney disease stage: unspecified stage Qualified Code(s): N18.9 - Chronic kidney disease, unspecified Condition: Stable - Admission Yes - Follow up/Referral Referrals: Joie Noonan [Primary Care Provider] - - Patient Discharge Instructions - Post Discharge Activity
[2020-01-13] MEDS ORDERED: ACETAMINOPHEN INJECTION 100 ML IVPB ONE (02:33)
[2020-01-13] MEDS ORDERED: CEFTRIAXONE 1,000 MG in DEXTROSE 5%-WATER - 50 ML IVPB ONE (03:20)
[2020-01-13] MEDS ORDERED: LIDOCAINE HCL 2% JELLY (30 ML/TUBE) TP ONE (03:22)
[2020-01-13] MEDS ORDERED: LIDOCAINE HCL 2% JELLY (5 ML/TUBE) ONE (03:25)
[2020-01-13] MEDS ORDERED: CEFTRIAXONE 1 GM/50 ML BAG ONE ×2 (03:25→09:14)
[2020-01-13 04:26] LABS: PH,URINE >= 9.0 (5.0-8.0); URINE APPEARANCE Turbid; URINE BILIRUBIN 3+ (NEGATIVE); URINE COLOR Red; URINE GLUCOSE (UA) Trace (NEGATIVE); URINE KETONE 2+ (NEGATIVE); URINE LEUK ESTERASE 3+ (NEGATIVE); URINE NITRITE Positive (NEGATIVE); URINE PROTEIN 3+ (NEGATIVE); URINE UROBILINOGEN 4.0 E.U/dl mg/dL (0.2-1.0)
[2020-01-13 05:12] LABS: EPI CELLS 7 /uL (0-25.1); HYALINE CASTS 6 /uL (0-3.1); URINE RBC 20200 /uL (0-23.9); URINE WBC 120 /uL (0-25.8)
[2020-01-13 05:13] LABS: URINE BACTERIA 730 /uL (0-1359)
--- NOTE | 2020-01-13 08:10 | HP ---
Admitting History and Physical - Primary Care Physician PCP: Joie Noonan S - Admission Chief Complaint: hematuria History of Present Illness: 89 yo M history CHF s/p AICD, CAD s/p stents, HTN, HL, CKD, BPH, hypothyroid presents via EMS with hematuria, dysuria and passing clots since previous evening. Symptoms are associated with lower abd pain, urgency, frequency. No recent fever/chills, cp, SOB, N/V/D. not on AC History Source: Patient, Family Member, Medical Record Limitations to Obtaining History: No Limitations - Past Medical History Cardiovascular: Yes: CAD (CABG), HTN, Mitral Insufficiency, Other (ICD for induced ventricular tachycardia) Pulmonary: Yes: Asthma, Bronchitis, COPD, O2 Dependent, Pneumonia Gastrointestinal: Yes: Hiatal Hernia, Other (C diff colitis, hyper[plastic sigmoid polyps, right ischemic colitis 2012) Hepatobiliary: Yes: Cholelithiasis (s/p lap choly) Renal/: Yes: Renal Failure (had ARF last month in September creat bumped to 2), BPH (s/p TURP), Renal Calculi Heme/Onc: Yes: Anemia Infectious Disease: Yes: C-Diff Psych: Yes: Anxiety, Panic Musculoskeletal: Yes: Other (L foot wound s/p transmetatarsal amputation 2013) Endocrine: Yes: Diabetes Mellitus, Other (diabetic neuropathy) - Past Surgical History Past Surgical History: Yes: AICD, Amputation (TMA left foot 2013), CABG, Cholecystectomy (laparoscopic 2013), Colonoscopy, TURP, Upper Endoscopy - Smoking History Smoking history: Unknown if ever smoked Have you smoked in the past 12 months: No Aproximately how many cigarettes per day: 20 If you are a former smoker, when did you quit?: 2009 - Alcohol/Substance Use Hx Alcohol Use: No History of Substance Use: reports: None - Social History Usual Living Arrangement: Yes: With Spouse Do you think of yourself as: Straight/Heterosexual ADL: Family Assistance Occupation: retired [employer] History of Recent Travel: No Home Medications - Allergies Allergies/Adverse Reactions: Allergies Allergy/AdvReac Type Severity Reaction Status Date / Time sulfamethazine Allergy Verified 01/13/20 07:27 trimethoprim Allergy Verified 01/13/20 07:27 - Home Medications Home Medications: Ambulatory Orders Ascorbate Calcium [Vitamin C] 500 mg PO DAILY 01/20/14 Aspirin [ASA -] 81 mg PO DAILY 01/20/14 Carvedilol 3.125 mg PO BID 01/20/14 Folic Acid - 1 mg PO DAILY 01/20/14 Pregabalin [Lyrica -] 50 mg PO HS 01/20/14 Tamsulosin HCl [Flomax -] 0.4 mg PO HS 01/20/14 Levothyroxine [Synthroid -] 75 mcg PO DAILY 07/21/16 Ergocalciferol (Vitamin D2) [Vitamin D2] 2,000 unit PO DAILY 06/09/17 Insulin Glargine,Hum.rec.anlog [Lantus (10mL VIAL) -] 10 units SQ HS 06/09/17 Multivit-Min/FA/Lycopen/Lutein [Centrum Silver Tablet] 1 tab PO DAILY 06/09/17 Rosuvastatin Calcium 10 mg PO HS 06/09/17 Finasteride [Proscar -] 5 mg PO DAILY tablet 01/13/19 Famotidine [Pepcid] 1 tab PO DAILY 08/07/19 Acetaminophen [Tylenol .Regular Strength -] 650 mg PO Q6H PRN tablet 01/01/20 Bacitracin - [Bacitracin Topical Ointment -] 1 applic TP DAILY tube 01/01/20 Furosemide [Lasix -] 40 mg PO BID #180 tab 01/01/20 Polyethylene Glycol 3350 [Miralax 119 gm Btl -] 17 gm PO BID bottle 01/01/20 Family Medical History Family History: Unremarkable Review of Systems - Review of Systems Constitutional: reports: Loss of Appetite, Unintentional Wgt. Loss. denies: Chills, Fever, Lethargy Eyes: denies: Blurred Vision, Double Vision HENT: denies: Epistaxis Cardiovascular: denies: Chest Pain, Palpitations, Shortness of Breath Respiratory: denies: Cough, SOB Gastrointestinal: denies: Abdominal Pain, Rectal Bleeding, Vomiting, Vomiting Blood Genitourinary: reports: Dysuria, Hematuria. denies: Flank Pain Musculoskeletal: denies: Back Pain Neurological: denies: Change in LOC, Change in Speech, Confusion Hematology/Lymphatic: denies: Easily Bruised, Excessive Bleeding Psychiatric: reports: Altered Sleep Pattern. denies: Anxiety, Depression, Suicidal Physical Examination Vital Signs: Vital Signs Temperature 97.9 F 01/13/20 06:25 Pulse Rate 60 01/13/20 06:25 Respiratory Rate 16 01/13/20 06:25 Blood Pressure 115/62 01/13/20 06:25 O2 Sat by Pulse Oximetry (%) 100 01/13/20 06:25 Constitutional: Yes: No Distress, Calm Eyes: Yes: Conjunctiva Clear HENT: Yes: Atraumatic Neck: Yes: Supple Cardiovascular: Yes: Regular Rate and Rhythm Respiratory: Yes: CTA Bilaterally Gastrointestinal: Yes: Soft. No: Tenderness Renal/: Yes: Aguero Present, Hematuria. No: CVA Tenderness - Left, CVA Tenderness - Right Musculoskeletal: No: Joint Stiffness, Joint Swelling Extremities: No: Cold, Cool, Cyanosis Edema: No Integumentary: No: Bruising Neurological: Yes: Alert, Oriented ...Motor Strength: WNL Psychiatric: Yes: Alert, Oriented. No: Agitated Labs: CBC, BMP 01/13/20 01:24 01/13/20 01:24 Imaging - Results Chest X-ray: Report Reviewed Other: Report Reviewed Assessment/Plan 89 yo M history CHF s/p AICD, CAD s/p stents, HTN, HL, CKD, BPH, hypothyroid presents via EMS with hematuria, dysuria and passing clots; UA c/w possible UTI; admit; IV ATBGU and renal eval acute blood loss anemia - f/u CBC might need PRBC if drops ARF / CRF gentle hydration f/u labs and cx d.w pt and staff d/w pt's DVT pfx - can not use sq heparin due to bleeding decubs PFX turn q1 hour; d/w staff d/w prognosis guarded
[2020-01-13] MEDS ORDERED: POLYETHYLENE GLYCOL 3350 119 GM BTL PO PRN (08:11)
[2020-01-13] MEDS ORDERED: ACETAMINOPHEN 325 MG TABLET (FP) PO PRN (08:11)
[2020-01-13 08:30] LABS: BASO % 0.5 % (0-2.0); EOS % 3.4 % (0-4.5); HEMATOCRIT 21.1 % (35.4-49); LYMPH % 3.8 % (8-40); MCH 33.9 pg (25.7-33.7); MCHC 32.3 g/dl (32.0-35.9); MEAN CELL VOLUME 105.2 fl (80-96); MEAN PLT VOLUME 10.1 fl (7.5-11.1); MONO % 9.8 % (3.8-10.2); NEUT % 82.5 % (42.8-82.8); PLATELET COUNT 88 K/MM3 (134-434); RBC 2.01 M/mm3 (4.00-5.60); RDW 15.7 % (11.9-15.9); WHITE BLOOD COUNT 6.2 K/mm3 (4.0-10.0)
[2020-01-13 08:50] LABS: HEMOGLOBIN 6.8 GM/dL (11.7-16.9)
[2020-01-13] MEDS ORDERED: FAMOTIDINE 20 MG TABLET ONE (09:13)
[2020-01-13] MEDS ORDERED: LEVOTHYROXINE NA 25 MCG TABLET (FP) ONE (09:16)
--- NOTE | 2020-01-13 09:16 | EKG ---
Test Reason : Blood Pressure : / mmHG Vent. Rate : 061 BPM Atrial Rate : 061 BPM P-R Int : 138 ms QRS Dur : 186 ms QT Int : 488 ms P-R-T Axes : 000 -71 106 degrees QTc Int : 491 ms Atrial-sensed ventricular-paced rhythm ABNORMAL ECG WHEN COMPARED WITH ECG OF 26-DEC-2019 12:45, NO SIGNIFICANT CHANGE WAS FOUND Confirmed by DAVID BUTCHER MD ([id number]) on 01/13/2020 9:15:36 AM Referred By: Confirmed By:DAVID BUTCHER MD
[2020-01-13] MEDS: LEVOTHYROXINE NA 75 MCG TABLET (FP) PO SCH (09:17)
[2020-01-13] MEDS: CEFTRIAXONE 1 GM in DEXTROSE 5%-WATER - 50 ML IVPB SCH (09:17)
[2020-01-13] MEDS: SODIUM CHLORIDE 1,000 ML IV SCH (09:18)
[2020-01-13] MEDS ORDERED: CARVEDILOL 3.125 MG TABLET (FP) ONE (09:19)
[2020-01-13] MEDS ORDERED: FAMOTIDINE PO SCH (10:00)
[2020-01-13] MEDS ORDERED: ASPIRIN 81 MG CHEWABLE TABLETS PO SCH (10:00)
[2020-01-13] MEDS: CARVEDILOL 3.125 MG TABLET (FP) PO SCH ×2 (11:16→22:40)
--- NOTE | 2020-01-13 11:30 | CON.NEP ---
Consult Consult Specialty:: Nephrology Referred by:: Dr. Noonan Reason for Consultation:: CKD - History of Present Illness Chief Complaint: Dysuria History of Present Illness: This is a 89 year old male with history of CKD stage 4 (baseline Cr 1.7-2.2), CAD s/p CABG, BPH, CHF 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 Seen and examined at the bedside. Reports dysuria for several days. Denies any flank pain, fever, chills, CP or shortness of breath. No leg swelling. Appetite has been poor. No skin rash. - History Source History Provided By: Patient Limitations to Obtaining History: No Limitations - Past Medical History Cardio/Vascular: Yes: CAD (CABG), HTN, Mitral Insufficiency, Other (ICD for induced ventricular tachycardia) Pulmonary: Yes: Asthma, Bronchitis, COPD, O2 Dependent, Pneumonia Gastrointestinal: Yes: Hiatal Hernia, Other (C diff colitis, hyper[plastic sigmoid polyps, right ischemic colitis 2012) Hepatobiliary: Yes: Cholelithiasis (s/p lap choly) Renal/: Yes: Renal Failure (had ARF last month in September creat bumped to 2), BPH (s/p TURP), Renal Calculi Infectious Disease: Yes: C-Diff Psych: Yes: Anxiety, Panic Musculoskeletal: Yes: Other (L foot wound s/p transmetatarsal amputation 2013) Endocrine: Yes: Diabetes Mellitus, Other (diabetic neuropathy) - Past Surgical History Past Surgical History: Yes: AICD, Amputation (TMA left foot 2013), CABG, Cholecystectomy (laparoscopic 2013), Colonoscopy, TURP, Upper Endoscopy - Alcohol/Substance Use Hx Alcohol Use: No History of Substance Use: reports: None - Smoking History Smoking history: Unknown if ever smoked Have you smoked in the past 12 months: No Aproximately how many cigarettes per day: 20 If you are a former smoker, when did you quit?: 2009 - Social History Usual Living Arrangement: With Spouse ADL: Family Assistance Occupation: retired [employer] History of Recent Travel: No Home Medications - Allergies Allergies/Adverse Reactions: Allergies Allergy/AdvReac Type Severity Reaction Status Date / Time sulfamethazine Allergy Verified 01/13/20 07:27 trimethoprim Allergy Verified 01/13/20 07:27 - Home Medications Home Medications: Ambulatory Orders Ascorbate Calcium [Vitamin C] 500 mg PO DAILY 01/20/14 Aspirin [ASA -] 81 mg PO DAILY 01/20/14 Carvedilol 3.125 mg PO BID 01/20/14 Folic Acid - 1 mg PO DAILY 01/20/14 Pregabalin [Lyrica -] 50 mg PO HS 01/20/14 Tamsulosin HCl [Flomax -] 0.4 mg PO HS 01/20/14 Levothyroxine [Synthroid -] 75 mcg PO DAILY 07/21/16 Ergocalciferol (Vitamin D2) [Vitamin D2] 2,000 unit PO DAILY 06/09/17 Insulin Glargine,Hum.rec.anlog [Lantus (10mL VIAL) -] 10 units SQ HS 06/09/17 Multivit-Min/FA/Lycopen/Lutein [Centrum Silver Tablet] 1 tab PO DAILY 06/09/17 Rosuvastatin Calcium 10 mg PO HS 06/09/17 Finasteride [Proscar -] 5 mg PO DAILY tablet 01/13/19 Famotidine [Pepcid] 1 tab PO DAILY 08/07/19 Acetaminophen [Tylenol .Regular Strength -] 650 mg PO Q6H PRN tablet 01/01/20 Bacitracin - [Bacitracin Topical Ointment -] 1 applic TP DAILY tube 01/01/20 Furosemide [Lasix -] 40 mg PO BID #180 tab 01/01/20 Polyethylene Glycol 3350 [Miralax 119 gm Btl -] 17 gm PO BID bottle 01/01/20 Family Medical History Family History: Unremarkable Review of Systems - Review of Systems Constitutional: reports: Loss of Appetite, Malaise Eyes: reports: No Symptoms HENT: reports: No Symptoms Neck: reports: No Symptoms Cardiovascular: reports: No Symptoms Respiratory: reports: No Symptoms Gastrointestinal: reports: Abdominal Pain, Rectal Bleeding. denies: Constipation Genitourinary: reports: Burning, Dysuria. denies: Flank Pain Musculoskeletal: reports: No Symptoms Neurological: reports: No Symptoms Endocrine: reports: No Symptoms Nephrology Consult - Height Height: 5 ft 10 in - Weight Weight: 68.039 kg - BMI Body Mass Index (BMI): 21.5 - Lab Results CBC,BMP: CBC, BMP 01/13/20 08:00 01/13/20 01:24 Anion Gap: Anion Gap Anion Gap 6 MMOL/L (8-16) L 01/13/20 01:24 - Physical Examination Vital Signs: Vital Signs Temperature 97.9 F 01/13/20 06:25 Pulse Rate 60 01/13/20 06:25 Respiratory Rate 16 01/13/20 06:25 Blood Pressure 115/62 01/13/20 06:25 O2 Sat by Pulse Oximetry (%) 100 01/13/20 06:25 Constitutional: Yes: No Distress, Calm, Thin Eyes: Yes: Conjunctiva Clear HENT: Yes: Atraumatic Neck: Yes: Supple Cardiovascular: Yes: Regular Rate and Rhythm, S1, S2. No: Murmur, Rub Respiratory: Yes: Regular, CTA Bilaterally Gastrointestinal: Yes: Soft Renal/: No: Bladder Distention Extremities: No: Cold, Cool, Cyanosis Edema: No Neurological: Yes: Alert, Oriented Assessment/Plan 89 year old male with history of CKD stage 4 (baseline Cr 1.7-2.2), CAD s/p CABG, BPH, CHF 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 1. CKD stage 4 2. Dysuria/Suspected cystitis 3. CAD s/p CABG 4. 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 Acute on chronic anemia Renal function slightly worse then base but no overt electrolyte or acid/base disturbance noted Would hold diuretics for now given suspected infection and poor oral intake Check CXR given hx of CHF to r/o effusions Check Renal and bladder US continue gentle hydration with saline encourged oral hydration f/u blood and urine cultures continue empiric antibiotics Check stool for occult blood Consider PRBC transfusion if Hgb remains < 7 Check iron studies, may require MAGUI/Venofer Thank you Will follow Oscar Madrid DO
[2020-01-13] MEDS: FINASTERIDE 5 MG TABLET (FP) PO SCH (11:48)
[2020-01-13] MEDS: MULTIVITAMINS THER W-MINERALS COMBO TABLET (FP) PO SCH (11:49)
[2020-01-13] MEDS ORDERED: FOLIC ACID 1 MG TABLET (FP) ONE (12:01)
[2020-01-13] MEDS ORDERED: ASCORBIC ACID 500 MG TABLET (FP) ONE (12:01)
[2020-01-13] MEDS: ASCORBIC ACID 500 MG TABLET (FP) PO SCH (12:03)
[2020-01-13] MEDS: FOLIC ACID 1 MG TABLET (FP) PO SCH (12:03)
[2020-01-13] MEDS: CHOLECALCIFEROL (VIT D3) 1,000 UNIT (25 MCG) TABLET PO SCH (13:30)
[2020-01-13] MEDS ORDERED: FUROSEMIDE 20 MG TABLET (FP) PO SCH (14:00)
[2020-01-13] MEDS ORDERED: LIDOCAINE HCL 2% JELLY 10 ML CARTRIDGE ONE (14:47)
[2020-01-13] MEDS: BACITRACIN 15 GM TUBE TOPICAL OINTMENT TP SCH (16:20)
[2020-01-13] MEDS: PREGABALIN 50 MG CAPSULE PO SCH (22:45)
[2020-01-13] MEDS ORDERED: ALPRAZolam 0.25 MG TABLET PO PRN (23:01)
[2020-01-13] MEDS: ROSUVASTATIN CA 10 MG TABLET (FP) PO SCH (23:47)
[2020-01-13] MEDS: TAMSULOSIN HCL 0.4 MG CAP PO SCH (23:52)
[2020-01-13] MEDS: INSULIN (LEVEMIR) 100 UNITS/ML UNITS SQ SCH (23:53)
[2020-01-14] MEDS: SODIUM CHLORIDE 1,000 ML IV SCH ×2 (01:25→10:31)
[2020-01-14 03:20] LABS: BASO % 0.3 % (0-2.0); HEMATOCRIT 24.6 % (35.4-49); HEMOGLOBIN 8.1 GM/dL (11.7-16.9); LYMPH % 2.1 % (8-40); MCH 31.8 pg (25.7-33.7); MCHC 33.1 g/dl (32.0-35.9); MEAN CELL VOLUME 95.9 fl (80-96); MEAN PLT VOLUME 9.6 fl (7.5-11.1); MONO % 6.6 % (3.8-10.2); PLATELET COUNT 91 K/MM3 (134-434); RBC 2.56 M/mm3 (4.00-5.60); RDW 20.2 % (11.9-15.9); WHITE BLOOD COUNT 12.8 K/mm3 (4.0-10.0)
--- NOTE | 2020-01-14 06:17 | PN ---
Progress Note, Physician Chief Complaint: in bed was agitated last night sun-downing, was fighting the staff and pulling on his catheter - restraints applied as needed received 2 U PRBC for Hg dropped 6.8 - acute blood loss anemia d/w will see him this am - Current Medication List Current Medications: Active Medications Acetaminophen (Tylenol -) 650 mg PO Q6H PRN PRN Reason: PAIN SCALE 1-6 Alprazolam (Xanax -) 0.25 mg PO HS PRN PRN Reason: ANXIETY Last Admin: 01/14/20 00:00 Dose: 0.25 mg Documented by: Ascorbic Acid (Vitamin C -) 500 mg PO DAILY [facility] Last Admin: 01/13/20 12:03 Dose: 500 mg Documented by: Bacitracin (Bacitracin -) 1 applic TP DAILY [facility] Last Admin: 01/13/20 16:20 Dose: Not Given Documented by: Carvedilol (Coreg -) 3.125 mg PO BID [facility] Last Admin: 01/13/20 22:40 Dose: Not Given Documented by: Cholecalciferol (Vitamin D3 -) 1,000 unit PO DAILY [facility] Last Admin: 01/13/20 13:30 Dose: 1,000 unit Documented by: Famotidine (Pepcid -) 20 mg PO DAILY [facility] Finasteride (Proscar -) 5 mg PO DAILY [facility] Last Admin: 01/13/20 11:48 Dose: 5 mg Documented by: Folic Acid (Folic Acid -) 1 mg PO DAILY [facility] Last Admin: 01/13/20 12:03 Dose: 1 mg Documented by: Ceftriaxone Sodium 1 gm/ (Dextrose) 50 mls @ 100 mls/hr IVPB DAILY [facility] Last Admin: 01/13/20 09:17 Dose: 100 mls/hr Documented by: Sodium Chloride (Normal Saline -) 1,000 mls @ 50 mls/hr IV ASDIR [facility] Stop: 01/14/20 08:15 Last Admin: 01/14/20 01:25 Dose: 50 mls/hr Documented by: Insulin Aspart (Novolog Vial) 1 units SQ ACHS [facility]; Protocol Insulin Detemir (Levemir Vial) 10 units SQ HS [facility] Last Admin: 01/13/20 23:53 Dose: Not Given Documented by: Levothyroxine Sodium (Synthroid -) 75 mcg PO DAILY@0700 [facility] Last Admin: 01/13/20 09:17 Dose: 75 mcg Documented by: Multivitamins/Minerals (Theragran-M) 1 each PO DAILY [facility] Last Admin: 01/13/20 11:49 Dose: 1 each Documented by: Polyethylene Glycol (Miralax (For Daily Use) -) 17 gm PO BID PRN PRN Reason: CONSTIPATION Pregabalin (Lyrica -) 50 mg PO HS [facility] Last Admin: 01/13/20 22:45 Dose: Not Given Documented by: Rosuvastatin Calcium (Crestor -) 10 mg PO HS [facility] Last Admin: 01/13/20 23:47 Dose: Not Given Documented by: Tamsulosin HCl (Flomax -) 0.4 mg PO HS [facility] Last Admin: 01/13/20 23:52 Dose: Not Given Documented by: Zinc Oxide (Desitin Diaper Rash Oint -) 1 applic TP ASDIR PRN PRN Reason: HYGEINE Last Admin: 01/13/20 02:19 Dose: 1 applic Documented by: - Objective Vital Signs: Vital Signs Temperature 98.4 F 01/14/20 06:00 Pulse Rate 68 01/14/20 06:00 Respiratory Rate 76 H 01/14/20 06:00 Blood Pressure 124/67 01/14/20 06:00 O2 Sat by Pulse Oximetry (%) 97 01/13/20 20:35 Constitutional: Yes: No Distress, Calm Eyes: Yes: Conjunctiva Clear HENT: Yes: Atraumatic Neck: Yes: Supple Cardiovascular: Yes: Regular Rate and Rhythm Respiratory: Yes: Diminished Gastrointestinal: Yes: Soft Genitourinary: Yes: Aguero Present, Hematuria Musculoskeletal: No: Joint Stiffness, Joint Swelling Extremities: No: Cold, Cool, Cyanosis Edema: No Integumentary: No: Rash Neurological: Yes: Alert ...Motor Strength: WNL Psychiatric: Yes: Alert. No: Agitated Labs: CBC, BMP 01/14/20 03:08 01/13/20 01:24 INR, PTT INR 1.26 (0.83-1.09) H 01/13/20 01:24 - ....Imaging Other: Report Reviewed Assessment/Plan 89 yo M history CHF s/p AICD, CAD s/p stents, HTN, HL, CKD, BPH, hypothyroid presents via EMS with hematuria, dysuria and passing clots; UA c/w possible UTI; admit; IV ATB and renal eval acute blood loss anemia s/p PRBC f/u CBC ARF / CRF gentle hydration f/u labs and cx d.w pt and staff d/w pt's / phone DVT pfx - can not use sq heparin due to bleeding decubs PFX turn q1 hour; d/w staff d/w prognosis guarded
[2020-01-14] MEDS: INSULIN (NOVOLOG) ASPART 100 UNITS/ML 10ML VIAL SQ SCH ×4 (06:59→23:36)
[2020-01-14] MEDS: LEVOTHYROXINE NA 75 MCG TABLET (FP) PO SCH (07:00)
[2020-01-14 07:23] LABS: ANISOCYTOSIS 2+; MACROCYTOSIS 0; PLATELET ESTIMATE DECREASED
[2020-01-14 08:16] LABS: BASO % 0.3 % (0-2.0); HEMATOCRIT 23.9 % (35.4-49); HEMOGLOBIN 7.9 GM/dL (11.7-16.9); LYMPH % 2.2 % (8-40); MCH 31.3 pg (25.7-33.7); MCHC 32.9 g/dl (32.0-35.9); MEAN CELL VOLUME 95.1 fl (80-96); MEAN PLT VOLUME 9.9 fl (7.5-11.1); MONO % 6.6 % (3.8-10.2); NEUT % 90.9 % (42.8-82.8); PLATELET COUNT 86 K/MM3 (134-434); RBC 2.51 M/mm3 (4.00-5.60); RDW 20.9 % (11.9-15.9); WHITE BLOOD COUNT 12.5 K/mm3 (4.0-10.0)
--- NOTE | 2020-01-14 08:25 | CON.GU ---
Consult - History of Present Illness History of Present Illness: 89 yo male with h/o BPH and recurrent uti, maintained on flomax and finasteride, well known to Dr Nunez. Now admitted with gross hematuria and dysuria. Creatinine slightly elevated to 2.4 from baseline (CKD 4). No fever/chills. Renal sono with mild left hydro, bladder sono likely with large clot. Urine currently pink on CBI - Past Medical History Cardio/Vascular: Yes: CAD (CABG), HTN, Mitral Insufficiency, Other (ICD for induced ventricular tachycardia) Pulmonary: Yes: Asthma, Bronchitis, COPD, O2 Dependent, Pneumonia Gastrointestinal: Yes: Hiatal Hernia, Other (C diff colitis, hyper[plastic sigmoid polyps, right ischemic colitis 2012) Hepatobiliary: Yes: Cholelithiasis (s/p lap choly) Renal/: Yes: Renal Failure (had ARF last month in September creat bumped to 2), BPH (s/p TURP), Renal Calculi Infectious Disease: Yes: C-Diff Psych: Yes: Anxiety, Panic Musculoskeletal: Yes: Other (L foot wound s/p transmetatarsal amputation 2013) Endocrine: Yes: Diabetes Mellitus, Other (diabetic neuropathy) - Past Surgical History Past Surgical History: Yes: AICD, Amputation (TMA left foot 2013), CABG, Cholecystectomy (laparoscopic 2013), Colonoscopy, TURP, Upper Endoscopy - Alcohol/Substance Use Hx Alcohol Use: No History of Substance Use: reports: None - Smoking History Smoking history: Unknown if ever smoked Have you smoked in the past 12 months: No Aproximately how many cigarettes per day: 20 If you are a former smoker, when did you quit?: 2009 - Social History Usual Living Arrangement: With Spouse ADL: Family Assistance Occupation: retired [employer] History of Recent Travel: No Home Medications - Allergies Allergies/Adverse Reactions: Allergies Allergy/AdvReac Type Severity Reaction Status Date / Time sulfamethazine Allergy Verified 01/13/20 07:27 trimethoprim Allergy Verified 01/13/20 07:27 - Home Medications Home Medications: Ambulatory Orders Ascorbate Calcium [Vitamin C] 500 mg PO DAILY 01/20/14 Aspirin [ASA -] 81 mg PO DAILY 01/20/14 Carvedilol 3.125 mg PO BID 01/20/14 Folic Acid - 1 mg PO DAILY 01/20/14 Pregabalin [Lyrica -] 50 mg PO HS 01/20/14 Tamsulosin HCl [Flomax -] 0.4 mg PO HS 01/20/14 Levothyroxine [Synthroid -] 75 mcg PO DAILY 07/21/16 Ergocalciferol (Vitamin D2) [Vitamin D2] 2,000 unit PO DAILY 06/09/17 Insulin Glargine,Hum.rec.anlog [Lantus (10mL VIAL) -] 10 units SQ HS 06/09/17 Multivit-Min/FA/Lycopen/Lutein [Centrum Silver Tablet] 1 tab PO DAILY 06/09/17 Rosuvastatin Calcium 10 mg PO HS 06/09/17 Finasteride [Proscar -] 5 mg PO DAILY tablet 01/13/19 Famotidine [Pepcid] 1 tab PO DAILY 08/07/19 Acetaminophen [Tylenol .Regular Strength -] 650 mg PO Q6H PRN tablet 01/01/20 Bacitracin - [Bacitracin Topical Ointment -] 1 applic TP DAILY tube 01/01/20 Furosemide [Lasix -] 40 mg PO BID #180 tab 01/01/20 Polyethylene Glycol 3350 [Miralax 119 gm Btl -] 17 gm PO BID bottle 01/01/20 Review of Systems - Review of Systems Genitourinary: reports: Hematuria Physical Exam- Vital Signs: Vital Signs Temperature 98.4 F 01/14/20 06:00 Pulse Rate 76 01/14/20 07:04 Respiratory Rate 18 01/14/20 07:04 Blood Pressure 102/62 01/14/20 07:04 O2 Sat by Pulse Oximetry (%) 97 01/13/20 20:35 Renal/: Yes: Bladder Distention, Aguero Present, Hematuria Imaging - Results Ultrasound: Report Reviewed Problem List - Problems (1) Hematuria Assessment/Plan: await culture, if urine fails to clear with CBI, will require cystoscopy/fulguration Code(s): R31.9 - HEMATURIA, UNSPECIFIED Qualifiers: Hematuria type: gross Qualified Code(s): R31.0 - Gross hematuria
[2020-01-14 08:40] LABS: ALBUMIN 2.3 g/dl (3.4-5.0); BLOOD UREA NITROGEN 94.7 mg/dL (7-18); CALCIUM 8.2 mg/dL (8.5-10.1); CREATININE 2.7 mg/dL (0.55-1.3); POTASSIUM 4.4 mmol/L (3.5-5.1)
[2020-01-14] MEDS ORDERED: DEXTROSE 5%-WATER - 50 ML IVPB ONE (10:27)
[2020-01-14] MEDS ORDERED: cefTRIAXone SODIUM 1 GM VIAL ONE (10:27)
[2020-01-14] MEDS: CHOLECALCIFEROL (VIT D3) 1,000 UNIT (25 MCG) TABLET PO SCH (10:31)
[2020-01-14] MEDS: CEFTRIAXONE 1 GM in DEXTROSE 5%-WATER - 50 ML IVPB SCH (10:31)
[2020-01-14] MEDS: ASCORBIC ACID 500 MG TABLET (FP) PO SCH (10:31)
[2020-01-14] MEDS: MULTIVITAMINS THER W-MINERALS COMBO TABLET (FP) PO SCH (10:31)
[2020-01-14] MEDS: FOLIC ACID 1 MG TABLET (FP) PO SCH (10:32)
[2020-01-14] MEDS: CARVEDILOL 3.125 MG TABLET (FP) PO SCH ×2 (10:32→22:26)
[2020-01-14] MEDS: BACITRACIN 15 GM TUBE TOPICAL OINTMENT TP SCH (10:32)
[2020-01-14] MEDS: FAMOTIDINE 20 MG TABLET PO SCH (10:32)
[2020-01-14] MEDS: FINASTERIDE 5 MG TABLET (FP) PO SCH (10:32)
--- NOTE | 2020-01-14 18:11 | PN ---
Progress Note, Physician Chief Complaint: Hematuria History of Present Illness: Seen and examined at the bedside awake and alert offers no acute complaints CBI in place CBI bag has pink urine - Current Medication List Current Medications: Active Medications Acetaminophen (Tylenol -) 650 mg PO Q6H PRN PRN Reason: PAIN SCALE 1-6 Alprazolam (Xanax -) 0.25 mg PO HS PRN PRN Reason: ANXIETY Last Admin: 01/14/20 00:00 Dose: 0.25 mg Documented by: Ascorbic Acid (Vitamin C -) 500 mg PO DAILY [facility] Last Admin: 01/14/20 10:31 Dose: 500 mg Documented by: Bacitracin (Bacitracin -) 1 applic TP DAILY [facility] Last Admin: 01/14/20 10:32 Dose: 1 applic Documented by: Carvedilol (Coreg -) 3.125 mg PO BID [facility] Last Admin: 01/14/20 10:32 Dose: 3.125 mg Documented by: Cholecalciferol (Vitamin D3 -) 1,000 unit PO DAILY [facility] Last Admin: 01/14/20 10:31 Dose: 1,000 unit Documented by: Famotidine (Pepcid -) 20 mg PO DAILY [facility] Last Admin: 01/14/20 10:32 Dose: 20 mg Documented by: Finasteride (Proscar -) 5 mg PO DAILY [facility] Last Admin: 01/14/20 10:32 Dose: 5 mg Documented by: Folic Acid (Folic Acid -) 1 mg PO DAILY [facility] Last Admin: 01/14/20 10:32 Dose: 1 mg Documented by: Ceftriaxone Sodium 1 gm/ (Dextrose) 50 mls @ 100 mls/hr IVPB DAILY [facility] Last Admin: 01/14/20 10:31 Dose: 100 mls/hr Documented by: Insulin Aspart (Novolog Vial) 1 units SQ ACHS [facility]; Protocol Last Admin: 01/14/20 16:16 Dose: 2 unit Documented by: Insulin Detemir (Levemir Vial) 10 units SQ HS [facility] Last Admin: 01/13/20 23:53 Dose: Not Given Documented by: Levothyroxine Sodium (Synthroid -) 75 mcg PO DAILY@0700 [facility] Last Admin: 01/14/20 07:00 Dose: 75 mcg Documented by: Multivitamins/Minerals (Theragran-M) 1 each PO DAILY [facility] Last Admin: 01/14/20 10:31 Dose: 1 each Documented by: Polyethylene Glycol (Miralax (For Daily Use) -) 17 gm PO BID PRN PRN Reason: CONSTIPATION Pregabalin (Lyrica -) 50 mg PO [facility] Last Admin: 01/13/20 22:45 Dose: Not Given Documented by: Rosuvastatin Calcium (Crestor -) 10 mg PO [facility] Last Admin: 01/13/20 23:47 Dose: Not Given Documented by: Tamsulosin HCl (Flomax -) 0.4 mg PO [facility] Last Admin: 01/13/20 23:52 Dose: Not Given Documented by: Zinc Oxide (Desitin Diaper Rash Oint -) 1 applic TP ASDIR PRN PRN Reason: HYGEINE Last Admin: 01/13/20 02:19 Dose: 1 applic Documented by: - Objective Vital Signs: Vital Signs Temperature 98.0 F 01/14/20 14:48 Pulse Rate 78 01/14/20 14:48 Respiratory Rate 17 01/14/20 14:48 Blood Pressure 93/40 L 01/14/20 14:48 O2 Sat by Pulse Oximetry (%) 97 01/14/20 09:00 Constitutional: Yes: No Distress Neck: Yes: Supple Cardiovascular: Yes: Regular Rate and Rhythm Respiratory: Yes: Diminished Gastrointestinal: Yes: Soft Genitourinary: Yes: Aguero Present Extremities: No: Cyanosis Edema: No Neurological: Yes: Alert Labs: CBC, BMP 01/14/20 07:05 01/14/20 07:05 INR, PTT INR 1.26 (0.83-1.09) H 01/13/20 01:24 Assessment/Plan 89 year old male with history of CKD stage 4 (baseline Cr 1.7-2.2), CAD s/p CABG, BPH, CHF 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 1. CKD stage 4 2. Dysuria/Suspected cystitis 3. CAD s/p CABG 4. 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 Acute on chronic anemia Renal function worsened over the first 24 hours CXR consistant with CHF discontinue IVF for now Renal US shows unilateral hydronephroiss Continue CBI as per urology PRN Lasix as needed for shortness of breath f/u blood and urine cultures continue empiric antibiotics Check stool for occult blood Consider PRBC transfusion if Hgb remains < 7 Check iron studies, may require MAGUI/Venofer Thank you Will follow Oscar Madrid DO
--- NOTE | 2020-01-14 18:23 | CON.HO ---
Consult Consult Specialty:: Hematology Reason for Consultation:: Anemia - History of Present Illness History of Present Illness: 89 y/o gentleman with PMH significant for multiple comorbidities including CHF (w ICD), CAD (s/p stents), HTN, HLD, CKD, BPH, and hypothyroidism admitted due to urinary burning and bleeding from his penis since this evening. Pt complained of lower abdominal pain, dysuria, urgency, and frequency. He has hematuria for which CBI was started. Hematology consulted for anemia and thrombocytopenia - Past Medical History Cardio/Vascular: Yes: CAD (CABG), HTN, Mitral Insufficiency, Other (ICD for induced ventricular tachycardia) Pulmonary: Yes: Asthma, Bronchitis, COPD, O2 Dependent, Pneumonia Gastrointestinal: Yes: Hiatal Hernia, Other (C diff colitis, hyper[plastic sigmoid polyps, right ischemic colitis 2012) Hepatobiliary: Yes: Cholelithiasis (s/p lap choly) Renal/: Yes: Renal Failure (had ARF last month in September creat bumped to 2), BPH (s/p TURP), Renal Calculi Infectious Disease: Yes: C-Diff Psych: Yes: Anxiety, Panic Musculoskeletal: Yes: Other (L foot wound s/p transmetatarsal amputation 2013) Endocrine: Yes: Diabetes Mellitus, Other (diabetic neuropathy) - Past Surgical History Past Surgical History: Yes: AICD, Amputation (TMA left foot 2013), CABG, Ch olecystectomy (laparoscopic 2013), Colonoscopy, TURP, Upper Endoscopy - Alcohol/Substance Use Hx Alcohol Use: No History of Substance Use: reports: None - Smoking History Smoking history: Unknown if ever smoked Have you smoked in the past 12 months: No Aproximately how many cigarettes per day: 20 If you are a former smoker, when did you quit?: 2009 - Social History Usual Living Arrangement: With Spouse ADL: Family Assistance Occupation: retired [employer] History of Recent Travel: No Home Medications - Allergies Allergies/Adverse Reactions: Allergies Allergy/AdvReac Type Severity Reaction Status Date / Time sulfamethazine Allergy Verified 01/13/20 07:27 trimethoprim Allergy Verified 01/13/20 07:27 - Home Medications Home Medications: Ambulatory Orders Ascorbate Calcium [Vitamin C] 500 mg PO DAILY 01/20/14 Aspirin [ASA -] 81 mg PO DAILY 01/20/14 Carvedilol 3.125 mg PO BID 01/20/14 Folic Acid - 1 mg PO DAILY 01/20/14 Pregabalin [Lyrica -] 50 mg PO HS 01/20/14 Tamsulosin HCl [Flomax -] 0.4 mg PO HS 01/20/14 Levothyroxine [Synthroid -] 75 mcg PO DAILY 07/21/16 Ergocalciferol (Vitamin D2) [Vitamin D2] 2,000 unit PO DAILY 06/09/17 Insulin Glargine,Hum.rec.anlog [Lantus (10mL VIAL) -] 10 units SQ HS 06/09/17 Multivit-Min/FA/Lycopen/Lutein [Centrum Silver Tablet] 1 tab PO DAILY 06/09/17 Rosuvastatin Calcium 10 mg PO HS 06/09/17 Finasteride [Proscar -] 5 mg PO DAILY tablet 01/13/19 Famotidine [Pepcid] 1 tab PO DAILY 08/07/19 Acetaminophen [Tylenol .Regular Strength -] 650 mg PO Q6H PRN tablet 01/01/20 Bacitracin - [Bacitracin Topical Ointment -] 1 applic TP DAILY tube 01/01/20 Furosemide [Lasix -] 40 mg PO BID #180 tab 01/01/20 Polyethylene Glycol 3350 [Miralax 119 gm Btl -] 17 gm PO BID bottle 01/01/20 Physical Exam Vital Signs: Vital Signs Temperature 98.0 F 01/14/20 14:48 Pulse Rate 78 01/14/20 14:48 Respiratory Rate 17 01/14/20 14:48 Blood Pressure 93/40 L 01/14/20 14:48 O2 Sat by Pulse Oximetry (%) 97 01/14/20 09:00 Constitutional: Yes: Well Nourished, No Distress HENT: Yes: WNL Neck: Yes: WNL Cardiovascular: Yes: WNL, Regular Rate and Rhythm Respiratory: Yes: WNL, Regular Gastrointestinal: Yes: WNL Renal/: Yes: WNL Musculoskeletal: Yes: WNL Extremities: Yes: WNL Labs: CBC, BMP 01/14/20 07:05 01/14/20 07:05 Assessment/Plan 89 y/o gentleman with PMH significant for multiple comorbidities including CHF (w ICD), CAD (s/p stents), HTN, HLD, CKD, BPH, and hypothyroidism admitted due to urinary burning and bleeding from his penis since this evening. Pt complained of lower abdominal pain, dysuria, urgency, and frequency. He has hematuria for which CBI was started. Hematology consulted for anemia and thrombocytopenia Recommend: 1) Anemia. Hematuria. Lisa notes and CBI. 2) Thrombocytopenia. Dates back to 2011, less likely to be a primary hematologic disorder but will continue to monitor. Some of his medications (lyrica) are associated to thrombocytopenia (rarely ~ 3%) will not discontinue. 3) Thank you very much for this consultation
[2020-01-14] MEDS: ROSUVASTATIN CA 10 MG TABLET (FP) PO SCH (22:26)
[2020-01-14] MEDS: TAMSULOSIN HCL 0.4 MG CAP PO SCH (22:27)
[2020-01-14] MEDS: PREGABALIN 50 MG CAPSULE PO SCH (22:27)
[2020-01-14 22:51] LABS: BASO % 0.3 % (0-2.0); EOS % 0.2 % (0-4.5); HEMATOCRIT 23.3 % (35.4-49); HEMOGLOBIN 7.7 GM/dL (11.7-16.9); LYMPH % 2.3 % (8-40); MCH 31.3 pg (25.7-33.7); MCHC 32.8 g/dl (32.0-35.9); MEAN CELL VOLUME 95.3 fl (80-96); MONO % 8.4 % (3.8-10.2); NEUT % 88.8 % (42.8-82.8); PLATELET COUNT 96 K/MM3 (134-434); RBC 2.45 M/mm3 (4.00-5.60); RDW 20.9 % (11.9-15.9); WHITE BLOOD COUNT 13.2 K/mm3 (4.0-10.0)
[2020-01-14] MEDS: INSULIN (LEVEMIR) 100 UNITS/ML UNITS SQ SCH (23:35)
--- NOTE | 2020-01-15 06:18 | PN ---
Progress Note, Physician Chief Complaint: in bed more lethargic; opens eyes but not following commands, not interactive, did not eat Hg 7; BUN pending still bleeding / hematuria - Current Medication List Current Medications: Active Medications Acetaminophen (Tylenol -) 650 mg PO Q6H PRN PRN Reason: PAIN SCALE 1-6 Alprazolam (Xanax -) 0.25 mg PO HS PRN PRN Reason: ANXIETY Last Admin: 01/14/20 00:00 Dose: 0.25 mg Documented by: Ascorbic Acid (Vitamin C -) 500 mg PO DAILY [facility] Last Admin: 01/14/20 10:31 Dose: Not Given Documented by: Bacitracin (Bacitracin -) 1 applic TP DAILY [facility] Last Admin: 01/14/20 10:32 Dose: 1 applic Documented by: Carvedilol (Coreg -) 3.125 mg PO BID [facility] Cholecalciferol (Vitamin D3 -) 1,000 unit PO DAILY [facility] Last Admin: 01/14/20 10:31 Dose: Not Given Documented by: Famotidine (Pepcid -) 20 mg PO DAILY [facility] Last Admin: 01/14/20 10:32 Dose: Not Given Documented by: Finasteride (Proscar -) 5 mg PO DAILY [facility] Last Admin: 01/14/20 10:32 Dose: Not Given Documented by: Folic Acid (Folic Acid -) 1 mg PO DAILY [facility] Last Admin: 01/14/20 10:32 Dose: Not Given Documented by: Ceftriaxone Sodium 1 gm/ (Dextrose) 50 mls @ 100 mls/hr IVPB DAILY [facility] Last Admin: 01/14/20 10:31 Dose: 100 mls/hr Documented by: Insulin Aspart (Novolog Vial) 1 units SQ ACHS [facility]; Protocol Last Admin: 01/14/20 23:36 Dose: Not Given Documented by: Insulin Detemir (Levemir Vial) 10 units SQ HS [facility] Last Admin: 01/14/20 23:35 Dose: 10 units Documented by: Levothyroxine Sodium (Synthroid -) 75 mcg PO DAILY@0700 [facility] Last Admin: 01/14/20 07:00 Dose: 75 mcg Documented by: Multivitamins/Minerals (Theragran-M) 1 each PO DAILY [facility] Last Admin: 01/14/20 10:31 Dose: Not Given Documented by: Polyethylene Glycol (Miralax (For Daily Use) -) 17 gm PO BID PRN PRN Reason: CONSTIPATION Pregabalin (Lyrica -) 50 mg PO [facility] Last Admin: 01/14/20 22:27 Dose: Not Given Documented by: Rosuvastatin Calcium (Crestor -) 10 mg PO HS [facility] Last Admin: 01/14/20 22:26 Dose: Not Given Documented by: Tamsulosin HCl (Flomax -) 0.4 mg PO [facility] Last Admin: 01/14/20 22:27 Dose: Not Given Documented by: Zinc Oxide (Desitin Diaper Rash Oint -) 1 applic TP ASDIR PRN PRN Reason: HYGEINE Last Admin: 01/13/20 02:19 Dose: 1 applic Documented by: - Objective Vital Signs: Vital Signs Temperature 98.7 F 01/15/20 02:26 Pulse Rate 65 01/15/20 02:26 Respiratory Rate 20 01/15/20 02:26 Blood Pressure 110/63 01/15/20 02:26 O2 Sat by Pulse Oximetry (%) 97 01/14/20 21:00 Constitutional: Yes: No Distress, Calm Eyes: Yes: Conjunctiva Clear HENT: Yes: Atraumatic Neck: Yes: Supple Cardiovascular: Yes: Regular Rate and Rhythm Respiratory: Yes: Diminished Gastrointestinal: Yes: Soft. No: Tenderness Genitourinary: Yes: Hematuria Musculoskeletal: No: Joint Stiffness, Joint Swelling Extremities: No: Cold, Cool, Cyanosis Edema: No Integumentary: Yes: Bruising. No: Rash Neurological: Yes: Alert. No: Oriented Psychiatric: Yes: Alert. No: Oriented, Agitated Labs: CBC, BMP 01/14/20 22:37 01/14/20 07:05 INR, PTT INR 1.26 (0.83-1.09) H 01/13/20 01:24 - ....Imaging Other: Report Reviewed Assessment/Plan 89 yo M history CHF s/p AICD, CAD s/p stents, HTN, HL, CKD, BPH, hypothyroid presents via EMS with hematuria, dysuria and passing clots; UA c/w possible UTI; UCx enteroccocus on IV ATB; borderline low BP; worsening mental status scheduled for cysto for tomorrow - cardiac eval pending d/w dr Garcia worsening mental status, get head CT; uremic? renal f/u acute blood loss anemia s/p 2 PRBC - transfuse 2 more PRBc, f/u CBC sepsis? ID eval d.w pt and staff d/w pt's / phone DVT pfx - can not use sq heparin due to bleeding decubs PFX turn q1 hour; d/w staff prognosis guarded
[2020-01-15] MEDS: INSULIN (NOVOLOG) ASPART 100 UNITS/ML 10ML VIAL SQ SCH ×4 (06:24→22:33)
[2020-01-15] MEDS: LEVOTHYROXINE NA 75 MCG TABLET (FP) PO SCH (06:25)
[2020-01-15] MEDS ORDERED: SODIUM CHLORIDE 1,000 ML IV SCH (08:00)
[2020-01-15 08:56] LABS: BASO % 0.2 % (0-2.0); EOS % 0.5 % (0-4.5); HEMATOCRIT 22.3 % (35.4-49); HEMOGLOBIN 7.2 GM/dL (11.7-16.9); LYMPH % 2.6 % (8-40); MCH 30.8 pg (25.7-33.7); MCHC 32.4 g/dl (32.0-35.9); MEAN PLT VOLUME 9.1 fl (7.5-11.1); MONO % 10.3 % (3.8-10.2); NEUT % 86.4 % (42.8-82.8); PLATELET COUNT 96 K/MM3 (134-434); RBC 2.35 M/mm3 (4.00-5.60); RDW 20.8 % (11.9-15.9); WHITE BLOOD COUNT 11.9 K/mm3 (4.0-10.0)
[2020-01-15 09:30] LABS: CREATININE 2.8 mg/dL (0.55-1.3); POTASSIUM 4.2 mmol/L (3.5-5.1)
[2020-01-15 09:35] LABS: BLOOD UREA NITROGEN 104.9 mg/dL (7-18)
[2020-01-15] MEDS ORDERED: DEXTROSE 5%-WATER - 50 ML IVPB ONE (10:00)
[2020-01-15] MEDS ORDERED: cefTRIAXone SODIUM 1 GM VIAL ONE (10:00)
[2020-01-15] MEDS: BACITRACIN 15 GM TUBE TOPICAL OINTMENT TP SCH (10:40)
[2020-01-15] MEDS: FAMOTIDINE 20 MG TABLET PO SCH (10:41)
[2020-01-15] MEDS: FINASTERIDE 5 MG TABLET (FP) PO SCH (10:41)
[2020-01-15] MEDS: FOLIC ACID 1 MG TABLET (FP) PO SCH (10:41)
[2020-01-15] MEDS: CARVEDILOL 3.125 MG TABLET (FP) PO SCH ×2 (10:41→22:33)
[2020-01-15] MEDS: CEFTRIAXONE 1 GM in DEXTROSE 5%-WATER - 50 ML IVPB SCH (10:41)
[2020-01-15] MEDS: ASCORBIC ACID 500 MG TABLET (FP) PO SCH (10:42)
[2020-01-15] MEDS: MULTIVITAMINS THER W-MINERALS COMBO TABLET (FP) PO SCH (10:42)
[2020-01-15] MEDS: CHOLECALCIFEROL (VIT D3) 1,000 UNIT (25 MCG) TABLET PO SCH (10:42)
--- NOTE | 2020-01-15 10:46 | CON.CARD ---
Consult Consult Specialty:: Cardiology Referred by:: Joie Noonan MD Reason for Consultation:: Pre-op CV evaluation - History of Present Illness Chief Complaint: Gross hematuria History of Present Illness: The patient is an 89 year old white male, with a significant past medical history of mild-moderate systolic CHF, s/p CABG, s/p ICD, HTN, recurrent UTIs secondary, DM, PAD s/p left transmetatarsal amputation, on home O2 2L (only at night), dementia, who presented with dysuria, urgency, frequency and gross hematuria and noted to have Cr of 2.4. Renal sono with mild left hydro, bladder sono likely with large clot. Urine currently pink on CBI. Denies any flank pain, fever, chills, CP or shortness of breath, leg swelling. Appetite has been poor, more lethargic, opens eyes but not following commands, not interactive, receiving pRBC transfusion. Allergies: NKDA Primary Care Physician: Dr. Noonan at [facility] Temperature Regulator Pyrometer: Equalizing Saw Operator: Dr. Keyon Fair Baseline O2 Saturation: 95% on room air - History Source History Provided By: Medical Record Limitations to Obtaining History: Poor Historian - Past Medical History Cardio/Vascular: Yes: CAD (CABG), HTN, Mitral Insufficiency, Other (ICD for induced ventricular tachycardia) Pulmonary: Yes: Asthma, Bronchitis, COPD, O2 Dependent, Pneumonia Gastrointestinal: Yes: Hiatal Hernia, Other (C diff colitis, hyper[plastic sigmoid polyps, right ischemic colitis 2012) Hepatobiliary: Yes: Cholelithiasis (s/p lap choly) Renal/: Yes: Renal Failure (had ARF last month in September creat bumped to 2), BPH (s/p TURP), Renal Calculi Infectious Disease: Yes: C-Diff Psych: Yes: Anxiety, Panic Musculoskeletal: Yes: Other (L foot wound s/p transmetatarsal amputation 2013) Endocrine: Yes: Diabetes Mellitus, Other (diabetic neuropathy) - Past Surgical History Past Surgical History: Yes: AICD, Amputation (TMA left foot 2013), CABG, Cholecystectomy (laparoscopic 2013), Colonoscopy, TURP, Upper Endoscopy - Alcohol/Substance Use Hx Alcohol Use: No History of Substance Use: reports: None - Smoking History Smoking history: Unknown if ever smoked Have you smoked in the past 12 months: No Aproximately how many cigarettes per day: 20 If you are a former smoker, when did you quit?: 2009 - Social History Usual Living Arrangement: With Spouse ADL: Family Assistance Occupation: retired [employer] History of Recent Travel: No Home Medications - Allergies Allergies/Adverse Reactions: Allergies Allergy/AdvReac Type Severity Reaction Status Date / Time sulfamethazine Allergy Verified 01/13/20 07:27 trimethoprim Allergy Verified 01/13/20 07:27 - Home Medications Home Medications: Ambulatory Orders Ascorbate Calcium [Vitamin C] 500 mg PO DAILY 01/20/14 Aspirin [ASA -] 81 mg PO DAILY 01/20/14 Carvedilol 3.125 mg PO BID 01/20/14 Folic Acid - 1 mg PO DAILY 01/20/14 Pregabalin [Lyrica -] 50 mg PO HS 01/20/14 Tamsulosin HCl [Flomax -] 0.4 mg PO HS 01/20/14 Levothyroxine [Synthroid -] 75 mcg PO DAILY 07/21/16 Ergocalciferol (Vitamin D2) [Vitamin D2] 2,000 unit PO DAILY 06/09/17 Insulin Glargine,Hum.rec.anlog [Lantus (10mL VIAL) -] 10 units SQ HS 06/09/17 Multivit-Min/FA/Lycopen/Lutein [Centrum Silver Tablet] 1 tab PO DAILY 06/09/17 Rosuvastatin Calcium 10 mg PO HS 06/09/17 Finasteride [Proscar -] 5 mg PO DAILY tablet 01/13/19 Famotidine [Pepcid] 1 tab PO DAILY 08/07/19 Acetaminophen [Tylenol .Regular Strength -] 650 mg PO Q6H PRN tablet 01/01/20 Bacitracin - [Bacitracin Topical Ointment -] 1 applic TP DAILY tube 01/01/20 Furosemide [Lasix -] 40 mg PO BID #180 tab 01/01/20 Polyethylene Glycol 3350 [Miralax 119 gm Btl -] 17 gm PO BID bottle 01/01/20 Review of Systems - Review of Systems Constitutional: reports: Lethargy Vital Signs: Vital Signs Temperature 97.5 F L 01/15/20 09:24 Pulse Rate 71 01/15/20 09:24 Respiratory Rate 20 01/15/20 09:24 Blood Pressure 90/55 L 07/01/20 09:24 O2 Sat by Pulse Oximetry (%) 97 01/14/20 21:00 Constitutional: Yes: No Distress, Calm, Thin Neck: Yes: Supple Respiratory: Yes: Regular, Diminished, On Nasal O2 Gastrointestinal: Yes: Soft, Hypoactive Bowel Sounds Cardiovascular: Yes: Regular Rate and Rhythm JVD: No Carotid Bruit: No Heart Sounds: Yes: S1, S2 Edema: No - Other Data Labs, Other Data: CBC, BMP 01/15/20 08:15 01/15/20 08:15 INR, PTT INR 1.26 (0.83-1.09) H 01/13/20 01:24 A-sensed v-paced @ 61 Echo: Report Reviewed Ejection Fraction %: LVEF > or = 40 % Imaging - Results Chest X-ray: Report Reviewed (Better aeration left base) Assessment/Plan Problem List - Problems (1) Weakness Code(s): R53.1 - WEAKNESS (2) Acute on chronic systolic (congestive) heart failure Code(s): I50.23 - ACUTE ON CHRONIC SYSTOLIC (CONGESTIVE) HEART FAILURE (3) CAD (coronary artery disease) Code(s): I25.10 - ATHSCL HEART DISEASE OF [place] CORONARY ARTERY W/O ANG PCTRS Qualifiers: Coronary Disease-Associated Artery/Lesion type: [place] artery [place] vs. transplanted heart: [place] heart Associated angina: without angina Qualified Code(s): I25.10 - Atherosclerotic heart disease of [place] coronary artery without angina pectoris (4) CKD (chronic kidney disease) Code(s): N18.9 - CHRONIC KIDNEY DISEASE, UNSPECIFIED Qualifiers: Chronic kidney disease stage: stage 3 (moderate) Qualified Code(s): N18.3 - Chronic kidney disease, stage 3 (moderate) (5) Hx of CABG Code(s): Z95.1 - PRESENCE OF AORTOCORONARY BYPASS GRAFT (6) Hypercholesterolemia Code(s): E78.0 - PURE HYPERCHOLESTEROLEMIA * DO NOT USE * (7) Hypothyroidism Code(s): E03.9 - HYPOTHYROIDISM, UNSPECIFIED Qualifiers: Hypothyroidism type: unspecified Qualified Code(s): E03.9 - Hypothyroidism, unspecified (8) ICD (implantable cardioverter-defibrillator) in place Code(s): Z95.810 - PRESENCE OF AUTOMATIC (IMPLANTABLE) CARDIAC DEFIBRILLATOR (9) Pleural effusion Code(s): J90 - PLEURAL EFFUSION, NOT ELSEWHERE CLASSIFIED Assessment/Plan 12/27/[address]: Large bilateral pleural effusion with compressive ATX R>L, no pulm masses, mild mediastinal LAD unchanged from 02/25/2019 12/27/2019 CXR Large right effusion, mild left 07/21/2016 echocardiography revealed moderately dilated LV with mild-moderate decrease in LV function, pacer RV, mild LAE, moderate MR, mild TR 08/02/2018 echocardiography revealed mild to moderately decreased LVEF 40-45%, normal RV size and function, mild LAE, mild MR, trace TR and AR 1. Pre-op CV evaluation prior to cystoscopy/fulguration for 2. Gross hematuria, dysuria, suspected cystitis 3. CKD stage 4 4. Chronic systolic/diastolic failure with bilateral effusion 5. H/o Group D strep, enterococcus UTI 6. CAD post CABG, angina pectoris 7. HTN 8. NIDDM 9. Hypercholesterolemia 10. Post ICD ([employer]) for sustained ventricular tachycardia 11. Carotid stenosis 12. Hypothyroidism 13. PAD post [employer] and amputation (TMA) 14. Macrocytic anemia s/p 1u pRBC transfusion 15. Thrombocytopenia 16. Sacral decubiti ulcer PLAN: 1. Waiting for hemodynamic stability for cystoscopy/fulguration but actively bleeding 2. Hold diuretics, d/c hydration and monitor renal recovery and electrolytes 3. ASA 81 mg QD held pending hemostasis, holding Carvedilol 3.125 mg BID, Losartan 12.5 mg QD pending hemodynamic stability, continue Crestor 10 mg QHS. 4. Empiric abx course per C&S, wound care 5. Monitor anemia and transfuse as needed 6. Eventual f/u with Dr. Fair 7. Thank you for consultative opportunity
--- NOTE | 2020-01-15 11:55 | PN ---
Progress Note (short form) - Note Progress Note: ID consult dictated asked to comment on possible UTI continues to have hematuria lethargic, noncommunicative enterococcal UTI repeat blood cultures switch to ampicillin based on enterococcus sensitivities CKD thrombocytopenia anemia overall prognosis is poor Problem List - Problems (1) UTI (lower urinary tract infection) Code(s): N39.0 - URINARY TRACT INFECTION, SITE NOT SPECIFIED (2) Hematuria Code(s): R31.9 - HEMATURIA, UNSPECIFIED Qualifiers: Hematuria type: gross Qualified Code(s): R31.0 - Gross hematuria (3) CKD (chronic kidney disease) Code(s): N18.9 - CHRONIC KIDNEY DISEASE, UNSPECIFIED Qualifiers: Chronic kidney disease stage: unspecified stage Qualified Code(s): N18.9 - Chronic kidney disease, unspecified (4) Thrombocytopenia Code(s): D69.6 - THROMBOCYTOPENIA, UNSPECIFIED (5) Anemia Code(s): D64.9 - ANEMIA, UNSPECIFIED Qualifiers: Anemia type: unspecified type Qualified Code(s): D64.9 - Anemia, unspecified
--- NOTE | 2020-01-15 12:45 | CONS ---
DATE OF CONSULTATION: DATE OF DICTATION: 01/15/2020 CHIEF COMPLAINT/HISTORY OF PRESENT ILLNESS: This is an 89-year-old man who was admitted on the from home with hematuria. He was passing clots. He had no fever. He was brought to the ER where he was noted to have gross hematuria and platelet count of 86,000. He was started on ceftriaxone. He was seen by nephrology. He had a renal, bladder ultrasound that showed some mild left hydronephrosis and a bladder mass versus clot. He was started on CBI by urology. He was seen by hematology as well for his thrombocytopenia. I am asked to see him because urine culture is growing enterococcus. He is also noted to be more lethargic at baseline. He is currently unable to give any history. He is resting comfortably in bed. He continues on CBI, and his Aguero has hematuria. PAST MEDICAL HISTORY: Notable for CABG, coronary artery disease, hypertension, mitral insufficiency; he has an ICD. Asthma, bronchitis, COPD, is oxygen dependent. History of pneumonia in the past. He has had C. difficile colitis, ischemic colitis, cholelithiasis, renal failure, BPH, anemia, diabetes. PAST SURGICAL HISTORY: Notable for AICD, left TMA in 2013, CABG, cholecystectomy 2013, TURP in the past. He has a history of BPH and recurrent UTI. SOCIAL HISTORY: Former smoker. He lives with his spouse. He is a retired [employer]. ALLERGIES: BACTRIM. FAMILY HISTORY: Not available. REVIEW OF SYSTEMS: As per HPI. PHYSICAL EXAMINATION: General: He is an elderly man in no acute distress. Vital Signs: Temperature is 97.5. Pulse is 71, blood pressure 90/55. Respiratory rate is 20. Weight 64 kg. HEENT: Normocephalic. His eyes are anicteric. Neck: Supple. Lungs: Clear to auscultation. Heart: Regular rate and rhythm. Abdomen: Soft, nontender. Genitourinary: He has the Ageuro with gross hematuria. Extremities: Without edema. Skin: He has some skin tears on both his lower legs, and his left TMA is well healed. LABORATORY: His white count is 11.9, hemoglobin 7.2. Platelets are 96,000. He has known thrombocytopenia. On his prior admission in December he was thrombocytopenic as well. Chemistries: His creatinine is 2.8. In early December it was 2.4. He has known CKD. His urinalysis has 3+ leukocytes with 120 white cells. COVID serology is negative. Urine culture is growing enterococcus and normal jo-ann sensitive to ampicillin. Chest x-ray was done and shows a right pleural effusion with some consolidation and a small left pleural effusion. He has a left-sided pacemaker. SUMMARY: This is an elderly man admitted with hematuria. He has some chronic right-sided lung findings that were present on his prior admission, recently hospitalized in early December. He was here status post fall. He currently has evidence of hematuria and UTI. Would switch him to ampicillin to treat the enterococcus. Would repeat some blood cultures. Overall prognosis is poor, given his advanced age. Would adjustment his antibiotics for his CKD. OLENA GREWAL M.D. [id number]
[2020-01-15] MEDS: AMPICILLIN - 1 GM in SODIUM CHLORIDE 100 ML IVPB SCH ×2 (15:09→17:46)
[2020-01-15] MEDS ORDERED: LIDOCAINE 5% TOPICAL PATCH TP PRN (16:26)
[2020-01-15] MEDS ORDERED: INSULIN (NOVOLOG) ASPART 100 UNITS/ML 10ML VIAL ONE (16:32)
--- NOTE | 2020-01-15 18:18 | PN ---
Progress Note, Physician Chief Complaint: Hematuria History of Present Illness: Seen and examined at the bedside awake at the bedside more lethargic CBI in place - Current Medication List Current Medications: Active Medications Acetaminophen (Tylenol -) 650 mg PO Q6H PRN PRN Reason: PAIN SCALE 1-6 Last Admin: 01/15/20 14:16 Dose: 650 mg Documented by: Alprazolam (Xanax -) 0.25 mg PO HS PRN PRN Reason: ANXIETY Last Admin: 01/14/20 00:00 Dose: 0.25 mg Documented by: Ascorbic Acid (Vitamin C -) 500 mg PO DAILY [facility] Last Admin: 01/15/20 10:42 Dose: 500 mg Documented by: Bacitracin (Bacitracin -) 1 applic TP DAILY [facility] Last Admin: 01/15/20 10:40 Dose: 1 applic Documented by: Carvedilol (Coreg -) 3.125 mg PO BID [facility] Last Admin: 01/15/20 10:41 Dose: 3.125 mg Documented by: Cholecalciferol (Vitamin D3 -) 1,000 unit PO DAILY [facility] Last Admin: 01/15/20 10:42 Dose: 1,000 unit Documented by: Famotidine (Pepcid -) 20 mg PO DAILY [facility] Last Admin: 01/15/20 10:41 Dose: 20 mg Documented by: Finasteride (Proscar -) 5 mg PO DAILY [facility] Last Admin: 01/15/20 10:41 Dose: 5 mg Documented by: Folic Acid (Folic Acid -) 1 mg PO DAILY [facility] Last Admin: 01/15/20 10:41 Dose: 1 mg Documented by: Sodium Chloride (Normal Saline -) 1,000 mls @ 42 mls/hr IV ASDIR [facility] Last Admin: 01/15/20 08:29 Dose: 42 mls/hr Documented by: Ampicillin Sodium 1 gm/ Sodium (Chloride) 100 mls @ 200 mls/hr IVPB Q8H-IV [facility]; Protocol Last Admin: 01/15/20 17:46 Dose: 200 mls/hr Documented by: Insulin Aspart (Novolog Vial) 1 units SQ ACHS [facility]; Protocol Last Admin: 01/15/20 16:33 Dose: 2 unit Documented by: Insulin Detemir (Levemir Vial) 10 units SQ HS [facility] Last Admin: 01/14/20 23:35 Dose: 10 units Documented by: Levothyroxine Sodium (Synthroid -) 75 mcg PO DAILY@0700 [facility] Last Admin: 01/15/20 06:25 Dose: 75 mcg Documented by: Lidocaine (Lidoderm Patch -) 1 patch TP DAILY@1630 PRN PRN Reason: PAIN Last Admin: 01/15/20 16:43 Dose: 1 patch Documented by: Miscellaneous (Lidoderm Patch Removal) 1 each MC DAILY@0430 [facility] Multivitamins/Minerals (Theragran-M) 1 each PO DAILY [facility] Last Admin: 01/15/20 10:42 Dose: 1 each Documented by: Polyethylene Glycol (Miralax (For Daily Use) -) 17 gm PO BID PRN PRN Reason: CONSTIPATION Pregabalin (Lyrica -) 50 mg PO [facility] Last Admin: 01/14/20 22:27 Dose: Not Given Documented by: Rosuvastatin Calcium (Crestor -) 10 mg PO [facility] Last Admin: 01/14/20 22:26 Dose: Not Given Documented by: Tamsulosin HCl (Flomax -) 0.4 mg PO [facility] Last Admin: 01/14/20 22:27 Dose: Not Given Documented by: Zinc Oxide (Desitin Diaper Rash Oint -) 1 applic TP ASDIR PRN PRN Reason: HYGEINE Last Admin: 01/13/20 02:19 Dose: 1 applic Documented by: - Objective Vital Signs: Vital Signs Temperature 97.8 F 01/15/20 14:34 Pulse Rate 86 01/15/20 14:34 Respiratory Rate 20 01/15/20 14:34 Blood Pressure 103/45 L 01/15/20 14:34 O2 Sat by Pulse Oximetry (%) 97 01/14/20 21:00 Constitutional: Yes: No Distress HENT: Yes: Atraumatic Neck: Yes: Supple Cardiovascular: Yes: Regular Rate and Rhythm Respiratory: Yes: Regular, Diminished Extremities: No: Cyanosis Labs: CBC, BMP 01/15/20 08:15 01/15/20 08:15 INR, PTT INR 1.26 (0.83-1.09) H 01/13/20 01:24 Assessment/Plan 89 year old male with history of CKD stage 4 (baseline Cr 1.7-2.2), CAD s/p CABG, BPH, CHF 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 1. CKD stage 4 2. Dysuria/Suspected cystitis 3. CAD s/p CABG 4. 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 Acute on chronic anemia Renal function unchanged over the past 24 hours Given congestion on CXR and deterioatng renal function will start Lasix 40mg IV daily Renal US shows unilateral hydronephroiss would repeat renal US in 24-48 hours to see if hydronephrosis persists or can consider renal scan. Continue CBI as per urology f/u blood and urine cultures continue empiric antibiotics Check stool for occult blood Consider PRBC transfusion if Hgb remains < 7 Oscar [place] DO
[2020-01-15] MEDS: FUROSEMIDE 40 MG/4 ML INJECTABLE VIAL IVPUSH SCH ×2 (20:00→22:32)
[2020-01-15] MEDS: ROSUVASTATIN CA 10 MG TABLET (FP) PO SCH (22:33)
[2020-01-15] MEDS: TAMSULOSIN HCL 0.4 MG CAP PO SCH (22:33)
[2020-01-15] MEDS: PREGABALIN 50 MG CAPSULE PO SCH (22:34)
[2020-01-15] MEDS: INSULIN (LEVEMIR) 100 UNITS/ML UNITS SQ SCH (22:35)
[2020-01-16] MEDS ORDERED: INSULIN (LEVEMIR) 100 UNITS/ML UNITS SQ SCH (01:17)
[2020-01-16] MEDS ORDERED: PT OWN MED DRAWER 7, Y5N ONE ×4 (01:45→18:18)
[2020-01-16] MEDS: AMPICILLIN - 1 GM in SODIUM CHLORIDE 100 ML IVPB SCH ×3 (02:22→18:36)
[2020-01-16] MEDS ORDERED: LIDOCAINE PATCH REMOVAL MC SCH (04:30)
[2020-01-16] MEDS: FUROSEMIDE 40 MG/4 ML INJECTABLE VIAL IVPUSH SCH ×2 (05:51→17:34)
[2020-01-16] MEDS: LEVOTHYROXINE NA 75 MCG TABLET (FP) PO SCH (06:01)
[2020-01-16] MEDS: INSULIN (NOVOLOG) ASPART 100 UNITS/ML 10ML VIAL SQ SCH ×3 (06:01→17:34)
--- NOTE | 2020-01-16 07:59 | PN ---
Progress Note, Physician Chief Complaint: in bed nad no new c/o; more sleepy labs pending - Current Medication List Current Medications: Active Medications Acetaminophen (Tylenol -) 650 mg PO Q6H PRN PRN Reason: PAIN SCALE 1-6 Last Admin: 01/15/20 14:16 Dose: 650 mg Documented by: Alprazolam (Xanax -) 0.25 mg PO HS PRN PRN Reason: ANXIETY Last Admin: 01/14/20 00:00 Dose: 0.25 mg Documented by: Ascorbic Acid (Vitamin C -) 500 mg PO DAILY [facility] Last Admin: 01/15/20 10:42 Dose: 500 mg Documented by: Bacitracin (Bacitracin -) 1 applic TP DAILY [facility] Last Admin: 01/15/20 10:40 Dose: 1 applic Documented by: Carvedilol (Coreg -) 3.125 mg PO BID [facility] Last Admin: 01/15/20 22:33 Dose: Not Given Documented by: Cholecalciferol (Vitamin D3 -) 1,000 unit PO DAILY [facility] Last Admin: 01/15/20 10:42 Dose: 1,000 unit Documented by: Famotidine (Pepcid -) 20 mg PO DAILY [facility] Last Admin: 01/15/20 10:41 Dose: 20 mg Documented by: Finasteride (Proscar -) 5 mg PO DAILY [facility] Last Admin: 01/15/20 10:41 Dose: 5 mg Documented by: Folic Acid (Folic Acid -) 1 mg PO DAILY [facility] Last Admin: 01/15/20 10:41 Dose: 1 mg Documented by: Furosemide (Lasix Injection -) 40 mg IVPUSH BID@0600,1400 [facility] Last Admin: 01/16/20 05:51 Dose: 40 mg Documented by: Ampicillin Sodium 1 gm/ Sodium (Chloride) 100 mls @ 200 mls/hr IVPB Q8H-IV [facility]; Protocol Last Admin: 01/16/20 02:22 Dose: 200 mls/hr Documented by: Insulin Aspart (Novolog Vial) 1 units SQ ACHS [facility]; Protocol Last Admin: 01/16/20 06:01 Dose: Not Given Documented by: Insulin Detemir (Levemir Vial) 5 units SQ HS [facility] Levothyroxine Sodium (Synthroid -) 75 mcg PO DAILY@0700 [facility] Last Admin: 01/16/20 06:01 Dose: 75 mcg Documented by: Lidocaine (Lidoderm Patch -) 1 patch TP DAILY@1630 PRN PRN Reason: PAIN Last Admin: 01/15/20 16:43 Dose: 1 patch Documented by: Miscellaneous (Lidoderm Patch Removal) 1 each MC DAILY@0430 [facility] Last Admin: 01/16/20 07:56 Dose: Not Given Documented by: Multivitamins/Minerals (Theragran-M) 1 each PO DAILY [facility] Last Admin: 01/15/20 10:42 Dose: 1 each Documented by: Polyethylene Glycol (Miralax (For Daily Use) -) 17 gm PO BID PRN PRN Reason: CONSTIPATION Pregabalin (Lyrica -) 50 mg PO [facility] Last Admin: 01/15/20 22:34 Dose: Not Given Documented by: Rosuvastatin Calcium (Crestor -) 10 mg PO [facility] Last Admin: 01/15/20 22:33 Dose: Not Given Documented by: Tamsulosin HCl (Flomax -) 0.4 mg PO [facility] Last Admin: 01/15/20 22:33 Dose: Not Given Documented by: Zinc Oxide (Desitin Diaper Rash Oint -) 1 applic TP ASDIR PRN PRN Reason: HYGEINE Last Admin: 01/13/20 02:19 Dose: 1 applic Documented by: - Objective Vital Signs: Vital Signs Temperature 97.5 F L 01/15/20 19:38 Pulse Rate 65 01/15/20 19:38 Respiratory Rate 18 01/15/20 21:00 Blood Pressure 96/45 L 01/15/20 19:38 O2 Sat by Pulse Oximetry (%) 97 01/15/20 21:00 Constitutional: Yes: No Distress, Calm Eyes: Yes: Conjunctiva Clear HENT: Yes: Atraumatic Neck: Yes: Supple Cardiovascular: Yes: Regular Rate and Rhythm Respiratory: Yes: Diminished Gastrointestinal: Yes: Soft. No: Tenderness Genitourinary: Yes: Hematuria Edema: No Neurological: Yes: Alert Psychiatric: Yes: Alert. No: Agitated Labs: CBC, BMP 01/15/20 08:15 01/15/20 08:15 INR, PTT INR 1.26 (0.83-1.09) H 01/13/20 01:24 - ....Imaging Other: Report Reviewed Assessment/Plan 89 yo M history CHF s/p AICD, CAD s/p stents, HTN, HL, CKD, BPH, hypothyroid presents via EMS with hematuria, dysuria and passing clots; UA c/w possible UTI; UCx enteroccocus on IV ATB; borderline low BP; worsening mental status scheduled for cysto; seen by cardiology worsening mental status, head CT negative; uremic/ renal f/u - started on lasix acute blood loss anemia s/p 2 PRBC - transfuse 2 more PRBc, f/u CBC sepsis UTI - toxic metabolic encephalopathy - ID eval d.w pt and staff d/w pt's / phone DVT pfx - can not use sq heparin due to bleeding decubs PFX turn q1 hour; d/w staff d/w pt's / phinr prognosis guarded
--- NOTE | 2020-01-16 09:35 | CON.HO ---
Consult - text type - Consultation Consultation Note: Still with hematuria and Hb drifting down after a trasfusion, now 7.2. MCV on admission was 105.2. Cr now 2.8. Will check iron, retic, FOBT, erythropoietin level, FOBE. b12.folate to exclude these causes. WBC normal but platelets decresed - posible MDS as well, and chronic illness' anemia of renal disease. He may ahve any of these, or several of them with an acute component due to hematuria.
--- NOTE | 2020-01-16 10:15 | PN ---
Progress Note, Physician History of Present Illness: The patient is an 89 year old white male, with a significant past medical history of mild-moderate systolic CHF, s/p CABG, s/p ICD, HTN, recurrent UTIs secondary, DM, PAD s/p left transmetatarsal amputation, on home O2 2L (only at night), dementia, who presented with dysuria, urgency, frequency and gross hematuria and noted to have Cr of 2.4. Renal sono with mild left hydro, bladder sono likely with large clot. Urine currently pink on CBI. Denies any flank pain, fever, chills, CP or shortness of breath, leg swelling. Appetite has been poor, more lethargic, opens eyes but not following commands, not interactive, Hgb 7.2 despite receiving 4 u pRBC transfusion. 01/16/2020 Underwent cysto, evacuation of clot,, bladder biopsy, urologist noted erythema in bladder. prostatic bleeding Allergies: NKDA Primary Care Physician: Dr. Noonan at [facility] Tower Crane Operator: Vocational Technical Education Director: Dr. Keyon Fair Baseline O2 Saturation: 95% on room air - Current Medication List Current Medications: Active Medications Acetaminophen (Tylenol -) 650 mg PO Q6H PRN PRN Reason: PAIN SCALE 1-6 Last Admin: 01/15/20 14:16 Dose: 650 mg Documented by: Alprazolam (Xanax -) 0.25 mg PO HS PRN PRN Reason: ANXIETY Last Admin: 01/14/20 00:00 Dose: 0.25 mg Documented by: Ascorbic Acid (Vitamin C -) 500 mg PO DAILY [facility] Last Admin: 01/15/20 10:42 Dose: 500 mg Documented by: Bacitracin (Bacitracin -) 1 applic TP DAILY [facility] Last Admin: 01/15/20 10:40 Dose: 1 applic Documented by: Carvedilol (Coreg -) 3.125 mg PO BID [facility] Last Admin: 01/15/20 22:33 Dose: Not Given Documented by: Cholecalciferol (Vitamin D3 -) 1,000 unit PO DAILY [facility] Last Admin: 01/15/20 10:42 Dose: 1,000 unit Documented by: Famotidine (Pepcid -) 20 mg PO DAILY [facility] Last Admin: 01/15/20 10:41 Dose: 20 mg Documented by: Finasteride (Proscar -) 5 mg PO DAILY [facility] Last Admin: 01/15/20 10:41 Dose: 5 mg Documented by: Folic Acid (Folic Acid -) 1 mg PO DAILY [facility] Last Admin: 01/15/20 10:41 Dose: 1 mg Documented by: Furosemide (Lasix Injection -) 40 mg IVPUSH BID@0600,1400 [facility] Last Admin: 01/16/20 05:51 Dose: 40 mg Documented by: Ampicillin Sodium 1 gm/ Sodium (Chloride) 100 mls @ 200 mls/hr IVPB Q8H-IV [facility]; Protocol Last Admin: 01/16/20 02:22 Dose: 200 mls/hr Documented by: Insulin Aspart (Novolog Vial) 1 units SQ [facility]; Protocol Last Admin: 01/16/20 06:01 Dose: Not Given Documented by: Insulin Detemir (Levemir Vial) 5 units SQ [facility] Levothyroxine Sodium (Synthroid -) 75 mcg PO DAILY@0700 [facility] Last Admin: 01/16/20 06:01 Dose: 75 mcg Documented by: Lidocaine (Lidoderm Patch -) 1 patch TP DAILY@1630 PRN PRN Reason: PAIN Last Admin: 01/15/20 16:43 Dose: 1 patch Documented by: Miscellaneous (Lidoderm Patch Removal) 1 each MC DAILY@0430 [facility] Last Admin: 01/16/20 07:56 Dose: Not Given Documented by: Multivitamins/Minerals (Theragran-M) 1 each PO DAILY [facility] Last Admin: 01/15/20 10:42 Dose: 1 each Documented by: Polyethylene Glycol (Miralax (For Daily Use) -) 17 gm PO BID PRN PRN Reason: CONSTIPATION Pregabalin (Lyrica -) 50 mg PO [facility] Last Admin: 01/15/20 22:34 Dose: Not Given Documented by: Rosuvastatin Calcium (Crestor -) 10 mg PO [facility] Last Admin: 01/15/20 22:33 Dose: Not Given Documented by: Tamsulosin HCl (Flomax -) 0.4 mg PO [facility] Last Admin: 01/15/20 22:33 Dose: Not Given Documented by: Zinc Oxide (Desitin Diaper Rash Oint -) 1 applic TP ASDIR PRN PRN Reason: HYGEINE Last Admin: 01/13/20 02:19 Dose: 1 applic Documented by: - Objective Vital Signs: Vital Signs Temperature 97.5 F L 01/15/20 19:38 Pulse Rate 65 01/15/20 19:38 Respiratory Rate 16 01/16/20 09:00 Blood Pressure 96/45 L 01/15/20 19:38 O2 Sat by Pulse Oximetry (%) 98 01/16/20 09:00 Constitutional: Yes: No Distress, Calm, Thin Neck: Yes: Supple Cardiovascular: Yes: Regular Rate and Rhythm Respiratory: Yes: Regular, Diminished, On Nasal O2 Gastrointestinal: Yes: Soft, Hypoactive Bowel Sounds Genitourinary: Yes: Aguero Present, Hematuria Edema: No Labs: CBC, BMP 01/15/20 08:15 01/15/20 08:15 INR, PTT INR 1.26 (0.83-1.09) H 01/13/20 01:24 Assessment/Plan Problem List - Problems (1) Weakness Code(s): R53.1 - WEAKNESS (2) Acute on chronic systolic (congestive) heart failure Code(s): I50.23 - ACUTE ON CHRONIC SYSTOLIC (CONGESTIVE) HEART FAILURE (3) CAD (coronary artery disease) Code(s): I25.10 - ATHSCL HEART DISEASE OF [place] CORONARY ARTERY W/O ANG PCTRS Qualifiers: Coronary Disease-Associated Artery/Lesion type: [place] artery [place] vs. transplanted heart: [place] heart Associated angina: without angina Qualified Code(s): I25.10 - Atherosclerotic heart disease of [place] coronary artery without angina pectoris (4) CKD (chronic kidney disease) Code(s): N18.9 - CHRONIC KIDNEY DISEASE, UNSPECIFIED Qualifiers: Chronic kidney disease stage: stage 3 (moderate) Qualified Code(s): N18.3 - Chronic kidney disease, stage 3 (moderate) (5) Hx of CABG Code(s): Z95.1 - PRESENCE OF AORTOCORONARY BYPASS GRAFT (6) Hypercholesterolemia Code(s): E78.0 - PURE HYPERCHOLESTEROLEMIA * DO NOT USE * (7) Hypothyroidism Code(s): E03.9 - HYPOTHYROIDISM, UNSPECIFIED Qualifiers: Hypothyroidism type: unspecified Qualified Code(s): E03.9 - Hypothyroidism, unspecified (8) ICD (implantable cardioverter-defibrillator) in place Code(s): Z95.810 - PRESENCE OF AUTOMATIC (IMPLANTABLE) CARDIAC DEFIBRILLATOR (9) Pleural effusion Code(s): J90 - PLEURAL EFFUSION, NOT ELSEWHERE CLASSIFIED Assessment/Plan 12/27/[address]: Large bilateral pleural effusion with compressive ATX R>L, no pulm masses, mild mediastinal LAD unchanged from 02/25/2019 12/27/2019 CXR Large right effusion, mild left 07/21/2016 echocardiography revealed moderately dilated LV with mild-moderate decrease in LV function, pacer RV, mild LAE, moderate MR, mild TR 08/02/2018 echocardiography revealed mild to moderately decreased LVEF 40-45%, normal RV size and function, mild LAE, mild MR, trace TR and AR 1. Pre-op CV evaluation prior to cystoscopy/fulguration for 2. Gross hematuria, dysuria, suspected cystitis 3. Acute on CKD stage 4 4. Chronic systolic/diastolic failure with bilateral effusion 5. H/o Group D strep, enterococcus UTI 6. CAD post CABG, angina pectoris 7. HTN 8. NIDDM 9. Hypercholesterolemia 10. Post ICD ([employer]tr[employer]) for sustained ventricular tachycardia 11. Carotid stenosis 12. Hypothyroidism 13. 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 Macrocytic anemia s/p 1u pRBC transfusion 15. Thrombocytopenia 16. Sacral decubiti ulcer 17. Hypernatremia PLAN: 1. Hemodynamics improved with volume resuscitation, would proceed with cystoscopy/fulguration as he is continuing to bleed despite 4 u pRBC transfusion 2. IV diuresis, free water repletion and monitor renal recovery and electrolytes 3. ASA 81 mg QD held pending hemostasis, holding Carvedilol 3.125 mg BID, Losartan 12.5 mg QD pending hemodynamic stability, continue Crestor 10 mg QHS. 4. Empiric abx course per C&S, wound care 5. Monitor anemia and transfuse as needed, CBI until clear 6. Eventual f/u with Dr. Fair
[2020-01-16] MEDS: CARVEDILOL 3.125 MG TABLET (FP) PO SCH ×2 (11:15→21:26)
[2020-01-16] MEDS: FINASTERIDE 5 MG TABLET (FP) PO SCH (11:15)
[2020-01-16] MEDS: FAMOTIDINE 20 MG TABLET PO SCH (11:16)
[2020-01-16] MEDS: FOLIC ACID 1 MG TABLET (FP) PO SCH (11:16)
[2020-01-16] MEDS: BACITRACIN 15 GM TUBE TOPICAL OINTMENT TP SCH (11:16)
[2020-01-16] MEDS: MULTIVITAMINS THER W-MINERALS COMBO TABLET (FP) PO SCH (11:16)
[2020-01-16] MEDS: ASCORBIC ACID 500 MG TABLET (FP) PO SCH (11:17)
[2020-01-16] MEDS: CHOLECALCIFEROL (VIT D3) 1,000 UNIT (25 MCG) TABLET PO SCH (11:17)
[2020-01-16] MEDS ORDERED: EPHEDRINE SULFATE/0.9% NACL/PF 50 MG/10 ML SYRINGE NR ONE (12:15)
[2020-01-16 12:29] LABS: BASO % 0.3 % (0-2.0); EOS % 2.2 % (0-4.5); HEMATOCRIT 29.8 % (35.4-49); HEMOGLOBIN 9.9 GM/dL (11.7-16.9); LYMPH % 4.1 % (8-40); MCH 30.8 pg (25.7-33.7); MCHC 33.3 g/dl (32.0-35.9); MEAN CELL VOLUME 92.4 fl (80-96); MEAN PLT VOLUME 9.2 fl (7.5-11.1); MONO % 9.7 % (3.8-10.2); NEUT % 83.7 % (42.8-82.8); PLATELET COUNT 93 K/MM3 (134-434); RBC 3.22 M/mm3 (4.00-5.60); WHITE BLOOD COUNT 11.3 K/mm3 (4.0-10.0)
[2020-01-16] MEDS ORDERED: ONDANSETRON 4 MG/2 ML VIAL IVPUSH PRN ×2 (12:31→16:49)
[2020-01-16] MEDS ORDERED: SODIUM CHLORIDE 1,000 ML IV SCH (12:45)
[2020-01-16 12:49] LABS: ALBUMIN 2.3 g/dl (3.4-5.0); BILIRUBIN,TOTAL 0.4 mg/dL (0.2-1); BLOOD UREA NITROGEN 94.6 mg/dL (7-18); CALCIUM 8.2 mg/dL (8.5-10.1); CREATININE 2.5 mg/dL (0.55-1.3); POTASSIUM 3.7 mmol/L (3.5-5.1); TOT PROT 6.2 g/dl (6.4-8.2)
[2020-01-16] MEDS ORDERED: MIDAZOLAM HCL 2 MG/2 ML SINGLE DOSE VIAL ONE (12:55)
[2020-01-16] MEDS ORDERED: DEXTROSE 5%-WATER - 1,000 ML IV SCH (13:00)
--- NOTE | 2020-01-16 13:22 | PN ---
Progress Note, Physician Chief Complaint: Hematuria History of Present Illness: Seen and examined at the bedside in OR for cysto - Current Medication List Current Medications: Active Medications Acetaminophen (Tylenol -) 650 mg PO Q6H PRN PRN Reason: PAIN SCALE 1-6 Last Admin: 01/15/20 14:16 Dose: 650 mg Documented by: Alprazolam (Xanax -) 0.25 mg PO HS PRN PRN Reason: ANXIETY Last Admin: 01/14/20 00:00 Dose: 0.25 mg Documented by: Ascorbic Acid (Vitamin C -) 500 mg PO DAILY [facility] Last Admin: 01/16/20 11:17 Dose: Not Given Documented by: Bacitracin (Bacitracin -) 1 applic TP DAILY [facility] Last Admin: 01/16/20 11:16 Dose: 1 applic Documented by: Carvedilol (Coreg -) 3.125 mg PO BID [facility] Last Admin: 01/16/20 11:15 Dose: 3.125 mg Documented by: Cholecalciferol (Vitamin D3 -) 1,000 unit PO DAILY [facility] Last Admin: 01/16/20 11:17 Dose: Not Given Documented by: Famotidine (Pepcid -) 20 mg PO DAILY [facility] Last Admin: 01/16/20 11:16 Dose: Not Given Documented by: Fentanyl (Sublimaze Injection -) 25 mcg IVPUSH [id number] PRN PRN Reason: PAIN-PACU ORDER X 4 DOSES ONLY Finasteride (Proscar -) 5 mg PO DAILY [facility] Last Admin: 01/16/20 11:15 Dose: 5 mg Documented by: Folic Acid (Folic Acid -) 1 mg PO DAILY [facility] Last Admin: 01/16/20 11:16 Dose: Not Given Documented by: Furosemide (Lasix Injection -) 40 mg IVPUSH BID@0600,1400 [facility] Last Admin: 01/16/20 05:51 Dose: 40 mg Documented by: Ampicillin Sodium 1 gm/ Sodium (Chloride) 100 mls @ 200 mls/hr IVPB Q8H-IV [facility]; Protocol Last Admin: 01/16/20 11:15 Dose: 200 mls/hr Documented by: Sodium Chloride (Normal Saline -) 1,000 mls @ 75 mls/hr IV [facility] Dextrose (D5w -) 1,000 mls @ 42 mls/hr IV [facility] Insulin Aspart (Novolog Vial) 1 units SQ [facility]; Protocol Last Admin: 01/16/20 11:57 Dose: Not Given Documented by: Insulin Detemir (Levemir Vial) 5 units SQ [facility] Levothyroxine Sodium (Synthroid -) 75 mcg PO DAILY@0700 [facility] Last Admin: 01/16/20 06:01 Dose: 75 mcg Documented by: Lidocaine (Lidoderm Patch -) 1 patch TP DAILY@1630 PRN PRN Reason: PAIN Last Admin: 01/15/20 16:43 Dose: 1 patch Documented by: Miscellaneous (Lidoderm Patch Removal) 1 each MC DAILY@0430 [facility] Last Admin: 01/16/20 07:56 Dose: Not Given Documented by: Multivitamins/Minerals (Theragran-M) 1 each PO DAILY [facility] Last Admin: 01/16/20 11:16 Dose: Not Given Documented by: Ondansetron HCl (Zofran Injection) 4 mg IVPUSH Q6H PRN PRN Reason: NAUSEA AND/OR VOMITING Polyethylene Glycol (Miralax (For Daily Use) -) 17 gm PO BID PRN PRN Reason: CONSTIPATION Pregabalin (Lyrica -) 50 mg PO [facility] Last Admin: 01/15/20 22:34 Dose: Not Given Documented by: Rosuvastatin Calcium (Crestor -) 10 mg PO [facility] Last Admin: 01/15/20 22:33 Dose: Not Given Documented by: Tamsulosin HCl (Flomax -) 0.4 mg PO [facility] Last Admin: 01/15/20 22:33 Dose: Not Given Documented by: Zinc Oxide (Desitin Diaper Rash Oint -) 1 applic TP ASDIR PRN PRN Reason: HYGEINE Last Admin: 01/13/20 02:19 Dose: 1 applic Documented by: - Objective Vital Signs: Vital Signs Temperature 98.5 F 01/16/20 11:00 Pulse Rate 67 01/16/20 11:00 Respiratory Rate 16 01/16/20 11:00 Blood Pressure 114/54 L 01/16/20 11:00 O2 Sat by Pulse Oximetry (%) 98 01/16/20 09:00 Labs: CBC, BMP 01/16/20 11:42 01/16/20 11:44 INR, PTT INR 1.26 (0.83-1.09) H 01/13/20 01:24 Assessment/Plan 89 year old male with history of CKD stage 4 (baseline Cr 1.7-2.2), CAD s/p CABG, BPH, CHF 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 1. CKD stage 4 2. Dysuria/Suspected cystitis 3. CAD s/p CABG 4. 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 Acute on chronic anemia Renal function improved from yesterday Continue IV Lasix BID Renal US shows unilateral hydronephroiss would repeat renal US in 24-48 hours to see if hydronephrosis persists or can consider renal scan. Continue CBI as per urology, for cysto today f/u blood and urine cultures continue antibiotics Oscar Madrid DO
--- NOTE | 2020-01-16 13:40 | OP ---
Operative Note - Note: Operative Date: 01/16/20 Pre-Operative Diagnosis: gross hematuria Operation: cysto, evacuation of clot,, bladder biopsy Findings: erythema in bladder. prostatic bleeding Post-Operative Diagnosis: Same as Pre-op Surgeon: Shaun Nunez Anesthesia: Spinal Specimens Removed: bladder bx Estimated Blood Loss (mls): 150 Operative Report Dictated: Yes
[2020-01-16] MEDS ORDERED: DEXTROSE 50%-WATER 25 GM/50 ML DISP.SYRIN ONE (14:41)
[2020-01-16] MEDS ORDERED: DEXTROSE 50%-WATER 25 GM/50 ML DISP.SYRIN IVPUSH ONE (14:45)
[2020-01-16] MEDS ORDERED: DEXTROSE 50%-WATER - 25 GM/50 ML VIAL IVPUSH ONE (15:50)
--- NOTE | 2020-01-16 16:27 | PN ---
Progress Note (short form) - Note Progress Note: seen in RR post op, he is lethargic s/p cysto with removal of clot CBI- clear- no hematuria Vital Signs Period Temp Pulse Resp BP Sys/Blanca Pulse Ox Last 24 Hr 97.4 F-98.5 F 63-74 12-18 88-119/36-63 95-100 cor-rrr lungs clear abd soft,nt ext no edema CBC, BMP 01/16/20 11:42 01/16/20 11:44 Microbiology 01/13/20 01:29 Blood - Peripheral Venous Blood Culture - Preliminary NO GROWTH OBTAINED AFTER 72 HOURS, INCUBATION TO CONTINUE FOR 2 DAYS. 01/13/20 01:25 Blood - Peripheral Venous Blood Culture - Preliminary NO GROWTH OBTAINED AFTER 72 HOURS, INCUBATION TO CONTINUE FOR 2 DAYS. 01/13/20 04:10 Urine - Urine Clean Catch Urine Culture - Final Enterococcus Faecalis Normal Urogenital Nery a/p s/p cystoscoply with evacuation of clost enterococcal UTI repeat blood cultures continue ampicillin, can switch to po amox and treat 7 days once he is taking po meds CKD thrombocytopenia anemia overall prognosis is poor Problem List - Problems (1) UTI (lower urinary tract infection) Code(s): N39.0 - URINARY TRACT INFECTION, SITE NOT SPECIFIED (2) Hematuria Code(s): R31.9 - HEMATURIA, UNSPECIFIED Qualifiers: Hematuria type: gross Qualified Code(s): R31.0 - Gross hematuria (3) CKD (chronic kidney disease) Code(s): N18.9 - CHRONIC KIDNEY DISEASE, UNSPECIFIED Qualifiers: Chronic kidney disease stage: unspecified stage Qualified Code(s): N18.9 - Chronic kidney disease, unspecified (4) Thrombocytopenia Code(s): D69.6 - THROMBOCYTOPENIA, UNSPECIFIED (5) Anemia Code(s): D64.9 - ANEMIA, UNSPECIFIED Qualifiers: Anemia type: unspecified type Qualified Code(s): D64.9 - Anemia, unspecified
[2020-01-16] MEDS ORDERED: ALPRAZolam 0.25 MG TABLET PO PRN (16:49)
[2020-01-16] MEDS ORDERED: COD LIVER OIL/ZINC OXIDE PASTE 56 GM TUBE TP PRN (16:49)
[2020-01-16] MEDS ORDERED: LIDOCAINE 5% TOPICAL PATCH TP PRN (16:49)
[2020-01-16] MEDS ORDERED: POLYETHYLENE GLYCOL 3350 119 GM BTL PO PRN (16:49)
--- NOTE | 2020-01-16 17:07 | OP ---
DATE OF OPERATION: 01/16/2020 PREOPERATIVE DIAGNOSIS: Gross hematuria. POSTOPERATIVE DIAGNOSIS: Gross hematuria. PROCEDURE: Cystoscopy, evacuation of clot, fulguration of bleeders, and biopsy of bladder. SURGEON: Shaun Nunez MD. ASSESSMENT: Bladder biopsy. ESTIMATED BLOOD LOSS: 150. ANESTHESIA: Spinal with sedation. PREOPERATIVE INDICATION: The patient is an 89-year-old male with a long history of BPH who presents to the hospital with gross hematuria. He has been getting irrigation, although it has not completely cleared his hematuria. Imaging reveals a large blood clot in the bladder. DESCRIPTION OF PROCEDURE: The patient was brought to the OR, placed on the table in the supine position. Given spinal anesthesia and placed in the modified lithotomy position. The groin was prepped and draped sterilely. Timeout was performed. Cystoscopy was performed. The urethra was unremarkable. Prostate was open. However, there was some bleeding seen at the bladder neck. In addition, there was a large clot seen within the bladder. Ellik evacuator was used to evacuate all the clot pieces. At this point, the visibility was improved. There was some bleeding from the bladder neck which was fulgurated. There was an area right lateral portion of the bladder which had some erythema. A portion was resected for pathological diagnosis. The base of the area was fulgurated with the bipolar resectoscope. Good control was seen at this time. was removed, a 24 [place] 3-way Aguero catheter was left in place for postoperative irrigation. Patient was woken up. SHAUN NUNEZ M.D. [id number]
[2020-01-16] MEDS: SODIUM CHLORIDE 1,000 ML IV SCH (17:26)
[2020-01-16] MEDS: DEXTROSE 5%-WATER - 1,000 ML IV SCH (17:27)
[2020-01-16] MEDS: PREGABALIN 50 MG CAPSULE PO SCH (21:26)
[2020-01-16] MEDS: ROSUVASTATIN CA 10 MG TABLET (FP) PO SCH (21:26)
[2020-01-16] MEDS: TAMSULOSIN HCL 0.4 MG CAP PO SCH (21:26)
[2020-01-17] MEDS: AMPICILLIN - 1 GM in SODIUM CHLORIDE 100 ML IVPB SCH ×3 (01:02→17:54)
[2020-01-17] MEDS: LIDOCAINE PATCH REMOVAL MC SCH (05:15)
[2020-01-17] MEDS: FUROSEMIDE 40 MG/4 ML INJECTABLE VIAL IVPUSH SCH ×2 (05:52→14:26)
[2020-01-17] MEDS: LEVOTHYROXINE NA 75 MCG TABLET (FP) PO SCH (06:00)
[2020-01-17 08:22] LABS: BASO % 0.2 % (0-2.0); EOS % 3.4 % (0-4.5); HEMOGLOBIN 9.6 GM/dL (11.7-16.9); LYMPH % 3.7 % (8-40); MCH 30.6 pg (25.7-33.7); MCHC 33.1 g/dl (32.0-35.9); MEAN CELL VOLUME 92.6 fl (80-96); MEAN PLT VOLUME 8.6 fl (7.5-11.1); MONO % 9.6 % (3.8-10.2); NEUT % 83.1 % (42.8-82.8); PLATELET COUNT 78 K/MM3 (134-434); RBC 3.13 M/mm3 (4.00-5.60); RDW 19.1 % (11.9-15.9); WHITE BLOOD COUNT 9.3 K/mm3 (4.0-10.0)
[2020-01-17 08:37] LABS: ALBUMIN 2.1 g/dl (3.4-5.0); BILIRUBIN,TOTAL 0.5 mg/dL (0.2-1); BLOOD UREA NITROGEN 78.2 mg/dL (7-18); CALCIUM 7.7 mg/dL (8.5-10.1); CREATININE 2.1 mg/dL (0.55-1.3); POTASSIUM 3.8 mmol/L (3.5-5.1); TOT PROT 5.8 g/dl (6.4-8.2)
[2020-01-17 08:42] LABS: PHOSPHOROUS 2.9 mg/dL (2.5-4.9)
[2020-01-17] MEDS ORDERED: PT OWN MED DRAWER 7, Y5N ONE ×3 (09:09→17:20)
[2020-01-17] MEDS: FOLIC ACID 1 MG TABLET (FP) PO SCH (10:06)
[2020-01-17] MEDS: CHOLECALCIFEROL (VIT D3) 1,000 UNIT (25 MCG) TABLET PO SCH (10:07)
[2020-01-17] MEDS: ASCORBIC ACID 500 MG TABLET (FP) PO SCH (10:07)
[2020-01-17] MEDS: FAMOTIDINE 20 MG TABLET PO SCH (10:07)
[2020-01-17] MEDS: MULTIVITAMINS THER W-MINERALS COMBO TABLET (FP) PO SCH (10:07)
[2020-01-17] MEDS: CARVEDILOL 3.125 MG TABLET (FP) PO SCH ×2 (10:08→22:12)
[2020-01-17] MEDS: BACITRACIN 15 GM TUBE TOPICAL OINTMENT TP SCH (10:08)
[2020-01-17] MEDS: FINASTERIDE 5 MG TABLET (FP) PO SCH (10:08)
--- NOTE | 2020-01-17 13:27 | PN ---
Progress Note, Physician Chief Complaint: Hematuria History of Present Illness: Seen and examined at the bedside awake and alert offers no complaints denies any sob, cp, fever, chills making urine s/p cysto yesterday - Current Medication List Current Medications: Active Medications Acetaminophen (Tylenol -) 650 mg PO Q6H PRN PRN Reason: PAIN SCALE 1-6 Alprazolam (Xanax -) 0.25 mg PO HS PRN PRN Reason: ANXIETY Ascorbic Acid (Vitamin C -) 500 mg PO DAILY [facility] Last Admin: 01/17/20 10:07 Dose: 500 mg Documented by: Bacitracin (Bacitracin -) 1 applic TP DAILY [facility] Last Admin: 01/17/20 10:08 Dose: 1 applic Documented by: Carvedilol (Coreg -) 3.125 mg PO BID [facility] Last Admin: 01/17/20 10:08 Dose: Not Given Documented by: Cholecalciferol (Vitamin D3 -) 1,000 unit PO DAILY [facility] Last Admin: 01/17/20 10:07 Dose: 1,000 unit Documented by: Famotidine (Pepcid -) 20 mg PO DAILY [facility] Last Admin: 01/17/20 10:07 Dose: 20 mg Documented by: Fentanyl (Sublimaze Injection -) 25 mcg IVPUSH [id number] PRN PRN Reason: PAIN-PACU ORDER X 4 DOSES ONLY Finasteride (Proscar -) 5 mg PO DAILY [facility] Last Admin: 01/17/20 10:08 Dose: 5 mg Documented by: Folic Acid (Folic Acid -) 1 mg PO DAILY [facility] Last Admin: 01/17/20 10:06 Dose: 1 mg Documented by: Furosemide (Lasix Injection -) 40 mg IVPUSH BID@0600,1400 [facility] Last Admin: 01/17/20 05:52 Dose: 40 mg Documented by: Ampicillin Sodium 1 gm/ Sodium (Chloride) 100 mls @ 200 mls/hr IVPB Q8H-IV [facility]; Protocol Last Admin: 01/17/20 10:06 Dose: 200 mls/hr Documented by: Dextrose (D5w -) 1,000 mls @ 42 mls/hr IV ASDIR [facility] Last Admin: 01/16/20 17:27 Dose: 42 mls/hr Documented by: Sodium Chloride (Normal Saline -) 1,000 mls @ 75 mls/hr IV ASDIR [facility] Last Admin: 01/16/20 17:26 Dose: Not Given Documented by: Levothyroxine Sodium (Synthroid -) 75 mcg PO DAILY@0700 [facility] Last Admin: 01/17/20 06:00 Dose: 75 mcg Documented by: Lidocaine (Lidoderm Patch -) 1 patch TP DAILY@1630 PRN PRN Reason: PAIN Miscellaneous (Lidoderm Patch Removal) 1 each MC DAILY@0430 [facility] Last Admin: 01/17/20 05:15 Dose: 1 each Documented by: Multivitamins/Minerals (Theragran-M) 1 each PO DAILY [facility] Last Admin: 01/17/20 10:07 Dose: 1 each Documented by: Ondansetron HCl (Zofran Injection) 4 mg IVPUSH Q6H PRN PRN Reason: NAUSEA AND/OR VOMITING Polyethylene Glycol (Miralax (For Daily Use) -) 17 gm PO BID PRN PRN Reason: CONSTIPATION Pregabalin (Lyrica -) 50 mg PO [facility] Last Admin: 01/16/20 21:26 Dose: 50 mg Documented by: Rosuvastatin Calcium (Crestor -) 10 mg PO [facility] Last Admin: 01/16/20 21:26 Dose: 10 mg Documented by: Tamsulosin HCl (Flomax -) 0.4 mg PO [facility] Last Admin: 01/16/20 21:26 Dose: 0.4 mg Documented by: Zinc Oxide (Desitin Diaper Rash Oint -) 1 applic TP ASDIR PRN PRN Reason: HYGEINE - Objective Vital Signs: Vital Signs Temperature 97.7 F 01/17/20 09:54 Pulse Rate 75 01/17/20 09:54 Respiratory Rate 16 01/17/20 09:54 Blood Pressure 91/58 L 01/17/20 09:54 O2 Sat by Pulse Oximetry (%) 94 L 01/17/20 09:54 Constitutional: Yes: No Distress HENT: Yes: Atraumatic Neck: Yes: Supple Respiratory: Yes: Regular Gastrointestinal: Yes: Soft Edema: No Neurological: Yes: Alert Labs: CBC, BMP 01/17/20 07:49 01/17/20 07:49 INR, PTT INR 1.26 (0.83-1.09) H 01/13/20 01:24 Assessment/Plan 89 year old male with history of CKD stage 4 (baseline Cr 1.7-2.2), CAD s/p CABG, BPH, CHF 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 1. CKD stage 4 2. Dysuria/Suspected cystitis 3. CAD s/p CABG 4. 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 Acute on chronic anemia Renal function improving daily with diuretics To get IV Lasix today but will start oral Torsemide 40mg daily tomorrow Trend renal function and electrolytes daily if medically cleared and discharged will need to have repeat labs within 3-5 days of discharge and close monitoring of renal function and volume status Pt and do not wish to pursue renal replacement therapy Give Epogen 20k units SC today for anemia, iron saturation is at goal can discontinue D5W if serum Na remains < 145 tomorrow oral intake as tolerated Ocsar Madrid DO
[2020-01-17] MEDS ORDERED: EPOETIN ALFA 20,000 UNIT/1 ML VIAL SQ ONE (14:00)
--- NOTE | 2020-01-17 15:17 | PN ---
Progress Note, Physician Chief Complaint: Events noted Post cystoscopy Not in distress History of Present Illness: Patient was seen and examined. Awake. Chart was reviewed Denies chest pain, SOB or palpitations Denies hematuria - Current Medication List Current Medications: Active Medications Acetaminophen (Tylenol -) 650 mg PO Q6H PRN PRN Reason: PAIN SCALE 1-6 Alprazolam (Xanax -) 0.25 mg PO HS PRN PRN Reason: ANXIETY Ascorbic Acid (Vitamin C -) 500 mg PO DAILY [facility] Last Admin: 01/17/20 10:07 Dose: 500 mg Documented by: Bacitracin (Bacitracin -) 1 applic TP DAILY [facility] Last Admin: 01/17/20 10:08 Dose: 1 applic Documented by: Carvedilol (Coreg -) 3.125 mg PO BID [facility] Last Admin: 01/17/20 10:08 Dose: Not Given Documented by: Cholecalciferol (Vitamin D3 -) 1,000 unit PO DAILY [facility] Last Admin: 01/17/20 10:07 Dose: 1,000 unit Documented by: Famotidine (Pepcid -) 20 mg PO DAILY [facility] Last Admin: 01/17/20 10:07 Dose: 20 mg Documented by: Fentanyl (Sublimaze Injection -) 25 mcg IVPUSH [id number] PRN PRN Reason: PAIN-PACU ORDER X 4 DOSES ONLY Finasteride (Proscar -) 5 mg PO DAILY [facility] Last Admin: 01/17/20 10:08 Dose: 5 mg Documented by: Folic Acid (Folic Acid -) 1 mg PO DAILY [facility] Last Admin: 01/17/20 10:06 Dose: 1 mg Documented by: Furosemide (Lasix Injection -) 40 mg IVPUSH BID@0600,1400 [facility] Stop: 01/17/20 16:00 Last Admin: 01/17/20 14:26 Dose: 40 mg Documented by: Ampicillin Sodium 1 gm/ Sodium (Chloride) 100 mls @ 200 mls/hr IVPB Q8H-IV [facility]; Protocol Last Admin: 01/17/20 10:06 Dose: 200 mls/hr Documented by: Dextrose (D5w -) 1,000 mls @ 42 mls/hr IV ASDIR [facility] Last Admin: 01/16/20 17:27 Dose: 42 mls/hr Documented by: Sodium Chloride (Normal Saline -) 1,000 mls @ 75 mls/hr IV ASDIR [facility] Last Admin: 01/16/20 17:26 Dose: Not Given Documented by: Levothyroxine Sodium (Synthroid -) 75 mcg PO DAILY@0700 [facility] Last Admin: 01/17/20 06:00 Dose: 75 mcg Documented by: Lidocaine (Lidoderm Patch -) 1 patch TP DAILY@1630 PRN PRN Reason: PAIN Miscellaneous (Lidoderm Patch Removal) 1 each MC DAILY@0430 [facility] Last Admin: 01/17/20 05:15 Dose: 1 each Documented by: Multivitamins/Minerals (Theragran-M) 1 each PO DAILY [facility] Last Admin: 01/17/20 10:07 Dose: 1 each Documented by: Ondansetron HCl (Zofran Injection) 4 mg IVPUSH Q6H PRN PRN Reason: NAUSEA AND/OR VOMITING Polyethylene Glycol (Miralax (For Daily Use) -) 17 gm PO BID PRN PRN Reason: CONSTIPATION Pregabalin (Lyrica -) 50 mg PO [facility] Last Admin: 01/16/20 21:26 Dose: 50 mg Documented by: Rosuvastatin Calcium (Crestor -) 10 mg PO [facility] Last Admin: 01/16/20 21:26 Dose: 10 mg Documented by: Tamsulosin HCl (Flomax -) 0.4 mg PO [facility] Last Admin: 01/16/20 21:26 Dose: 0.4 mg Documented by: Torsemide (Demadex -) 40 mg PO DAILY [facility] Zinc Oxide (Desitin Diaper Rash Oint -) 1 applic TP [facility]IR PRN PRN Reason: HYGEINE - Objective Vital Signs: Vital Signs Temperature 97.8 F 01/17/20 13:00 Pulse Rate 73 01/17/20 13:00 Respiratory Rate 18 01/17/20 13:00 Blood Pressure 105/53 L 01/17/20 13:00 O2 Sat by Pulse Oximetry (%) 94 L 01/17/20 09:54 Neck: Yes: Supple Cardiovascular: Yes: Regular Rate and Rhythm, S1, S2 Respiratory: Yes: Diminished Gastrointestinal: Yes: Normal Bowel Sounds, Soft. No: Tenderness Extremities: Yes: Amputation Edema: No Labs: CBC, BMP 01/17/20 07:49 01/17/20 07:49 Problem List - Problems (1) CKD (chronic kidney disease) Code(s): N18.9 - CHRONIC KIDNEY DISEASE, UNSPECIFIED Qualifiers: Chronic kidney disease stage: unspecified stage Qualified Code(s): N18.9 - Chronic kidney disease, unspecified (2) UTI (lower urinary tract infection) Code(s): N39.0 - URINARY TRACT INFECTION, SITE NOT SPECIFIED (3) ASHD (arteriosclerotic heart disease) Code(s): I25.10 - ATHSCL HEART DISEASE OF [place] CORONARY ARTERY W/O ANG PCTRS (4) Acute on chronic systolic (congestive) heart failure Code(s): I50.23 - ACUTE ON CHRONIC SYSTOLIC (CONGESTIVE) HEART FAILURE (5) Carotid artery disease Code(s): I77.9 - DISORDER OF ARTERIES AND ARTERIOLES, UNSPECIFIED (6) Diabetes mellitus Code(s): E11.9 - TYPE 2 DIABETES MELLITUS WITHOUT COMPLICATIONS (7) HTN (hypertension) Code(s): I10 - ESSENTIAL (PRIMARY) HYPERTENSION Qualifiers: (8) History of implantable cardiac defibrillator (ICD) Code(s): [id number] - (9) Hx of CABG Code(s): Z95.1 - PRESENCE OF AORTOCORONARY BYPASS GRAFT (10) Hypercholesterolemia Code(s): E78.0 - PURE HYPERCHOLESTEROLEMIA * DO NOT USE * (11) PVD (peripheral vascular disease) Code(s): I73.9 - PERIPHERAL VASCULAR DISEASE, UNSPECIFIED (12) Systolic dysfunction with acute on chronic heart failure Code(s): I50.23 - ACUTE ON CHRONIC SYSTOLIC (CONGESTIVE) HEART FAILURE (13) Weakness Code(s): R53.1 - WEAKNESS Assessment/Plan 1. Gross hematuria, dysuria, suspected cystitis 2. 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 Chronic systolic/diastolic failure with bilateral effusion 4. UTI 5. CAD post CABG, angina pectoris 6. HTN 7. NIDDM 8. Hypercholesterolemia 9. 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 Carotid stenosis 11. Hypothyroidism 12. PAD post [employer] and amputation (TMA) 13. Macrocytic anemia 14. Thrombocytopenia 15. Sacral decubiti ulcer 16. Hypernatremia PLAN: 1. Transfuse as needed. input to follow 2. IV diuresis, free water repletion and monitor renal recovery and electrolytes 3. Restart ASA 81 mg QD pending hemostasis. Continue Carvedilol 3.125 mg BID. Currently on Rosuvastatin 10 mg QHS. Not on ARB 4. Empiric antibiotic course and wound care Keyon Fair MD
[2020-01-17] MEDS: DEXTROSE 5%-WATER - 1,000 ML IV SCH (16:52)
[2020-01-17] MEDS: SODIUM CHLORIDE 1,000 ML IV SCH (16:53)
--- NOTE | 2020-01-17 18:26 | PN ---
Progress Note, Physician Chief Complaint: more awake alert VSS less hematuria s/p cysto labs better - Current Medication List Current Medications: Active Medications Acetaminophen (Tylenol -) 650 mg PO Q6H PRN PRN Reason: PAIN SCALE 1-6 Alprazolam (Xanax -) 0.25 mg PO HS PRN PRN Reason: ANXIETY Ascorbic Acid (Vitamin C -) 500 mg PO DAILY [facility] Last Admin: 01/17/20 10:07 Dose: 500 mg Documented by: Bacitracin (Bacitracin -) 1 applic TP DAILY [facility] Last Admin: 01/17/20 10:08 Dose: 1 applic Documented by: Carvedilol (Coreg -) 3.125 mg PO BID [facility] Last Admin: 01/17/20 10:08 Dose: Not Given Documented by: Cholecalciferol (Vitamin D3 -) 1,000 unit PO DAILY [facility] Last Admin: 01/17/20 10:07 Dose: 1,000 unit Documented by: Famotidine (Pepcid -) 20 mg PO DAILY [facility] Last Admin: 01/17/20 10:07 Dose: 20 mg Documented by: Fentanyl (Sublimaze Injection -) 25 mcg IVPUSH [id number] PRN PRN Reason: PAIN-PACU ORDER X 4 DOSES ONLY Finasteride (Proscar -) 5 mg PO DAILY [facility] Last Admin: 01/17/20 10:08 Dose: 5 mg Documented by: Folic Acid (Folic Acid -) 1 mg PO DAILY [facility] Last Admin: 01/17/20 10:06 Dose: 1 mg Documented by: Ampicillin Sodium 1 gm/ Sodium (Chloride) 100 mls @ 200 mls/hr IVPB Q8H-IV [facility]; Protocol Last Admin: 01/17/20 17:54 Dose: 200 mls/hr Documented by: Dextrose (D5w -) 1,000 mls @ 42 mls/hr IV ASDIR [facility] Last Admin: 01/17/20 16:52 Dose: 42 mls/hr Documented by: Sodium Chloride (Normal Saline -) 1,000 mls @ 75 mls/hr IV ASDIR [facility] Last Admin: 01/17/20 16:53 Dose: Not Given Documented by: Levothyroxine Sodium (Synthroid -) 75 mcg PO DAILY@0700 [facility] Last Admin: 01/17/20 06:00 Dose: 75 mcg Documented by: Lidocaine (Lidoderm Patch -) 1 patch TP DAILY@1630 PRN PRN Reason: PAIN Miscellaneous (Lidoderm Patch Removal) 1 each MC DAILY@0430 [facility] Last Admin: 01/17/20 05:15 Dose: 1 each Documented by: Multivitamins/Minerals (Theragran-M) 1 each PO DAILY [facility] Last Admin: 01/17/20 10:07 Dose: 1 each Documented by: Ondansetron HCl (Zofran Injection) 4 mg IVPUSH Q6H PRN PRN Reason: NAUSEA AND/OR VOMITING Polyethylene Glycol (Miralax (For Daily Use) -) 17 gm PO BID PRN PRN Reason: CONSTIPATION Pregabalin (Lyrica -) 50 mg PO [facility] Last Admin: 01/16/20 21:26 Dose: 50 mg Documented by: Rosuvastatin Calcium (Crestor -) 10 mg PO HS [facility] Last Admin: 01/16/20 21:26 Dose: 10 mg Documented by: Tamsulosin HCl (Flomax -) 0.4 mg PO [facility] Last Admin: 01/16/20 21:26 Dose: 0.4 mg Documented by: Torsemide (Demadex -) 40 mg PO DAILY [facility] Zinc Oxide (Desitin Diaper Rash Oint -) 1 applic TP [facility]IR PRN PRN Reason: HYGEINE - Objective Vital Signs: Vital Signs Temperature 97.8 F 01/17/20 13:00 Pulse Rate 73 01/17/20 13:00 Respiratory Rate 18 01/17/20 13:00 Blood Pressure 105/53 L 01/17/20 13:00 O2 Sat by Pulse Oximetry (%) 94 L 01/17/20 09:54 Constitutional: Yes: No Distress Eyes: Yes: Conjunctiva Clear HENT: Yes: Atraumatic Neck: Yes: Supple Cardiovascular: Yes: Regular Rate and Rhythm Respiratory: Yes: Diminished Gastrointestinal: Yes: Soft. No: Tenderness Genitourinary: No: Hematuria Musculoskeletal: No: Joint Stiffness, Joint Swelling Extremities: No: Cold, Cool Edema: No Integumentary: No: Rash, Venous Stasis Changes Neurological: Yes: Alert Psychiatric: Yes: Alert. No: Agitated Labs: CBC, BMP 01/17/20 07:49 01/17/20 07:49 INR, PTT INR 1.26 (0.83-1.09) H 01/13/20 01:24 - ....Imaging Other: Report Reviewed Assessment/Plan 89 yo M history CHF s/p AICD, CAD s/p stents, HTN, HL, CKD, BPH, hypothyroid admitted with hematuria, dysuria and passing clots; UCx enteroccocus on IV ATB; borderline low BP; worsening mental status s/p cysto; seen by cardiology aRF/CRF - better; renal f/u - started on lasix acute blood loss anemia s/p 2 PRBC; f/u CBC sepsis UTI - toxic metabolic encephalopathy - ID f/u d.w pt and staff d/w pt's / phone DVT pfx - can not use sq heparin due to bleeding decubs PFX turn q1 hour; d/w staff d/w pt's / phone; prognosis guarded
--- NOTE | 2020-01-17 19:08 | PN ---
Progress Note (short form) - Note Progress Note: PAtient seen and examined Last Vital Signs Temp Pulse Resp BP Pulse Ox 99.4 F 71 18 108/50 L 94 L 01/17/20 18:00 01/17/20 18:00 01/17/20 18:00 01/17/20 18:00 01/17/20 09:54 Cor: RSR, No murmurs, No gallops Lungs: Clear to P&A Abd: Soft, Normal bowel sounds, No organomegaly Ext:No significant edema Skin: No rashes, Integument intact Labs/Meds reviewed A/P 89 year old male with history of CKD stage 4 (baseline Cr 1.7-2.2), CAD s/p CABG, BPH, CHF 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 1. CKD stage 4 2. Dysuria/Suspected cystitis 3. CAD s/p CABG 4. 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 Acute on chronic anemia s/p cystoscopy and fulguration of bleeders on 01/15 chronic thrombocytopenia
[2020-01-17] MEDS: TAMSULOSIN HCL 0.4 MG CAP PO SCH (22:09)
[2020-01-17] MEDS: PREGABALIN 50 MG CAPSULE PO SCH (22:09)
[2020-01-17] MEDS: ROSUVASTATIN CA 10 MG TABLET (FP) PO SCH (22:09)
[2020-01-18] MEDS: AMPICILLIN - 1 GM in SODIUM CHLORIDE 100 ML IVPB SCH ×3 (01:05→18:10)
[2020-01-18] MEDS ORDERED: PT OWN MED DRAWER 7, Y5N ONE (01:28)
[2020-01-18] MEDS: LIDOCAINE PATCH REMOVAL MC SCH (05:00)
[2020-01-18] MEDS: LEVOTHYROXINE NA 75 MCG TABLET (FP) PO SCH (06:01)
--- NOTE | 2020-01-18 07:50 | PN ---
Progress Note (short form) - Note Progress Note: S/P cystoscopy pulliam is clear today abd soft Problem List - Problems (1) Gross hematuria Assessment/Plan: ok to remove pulliam this morning and discharge home Code(s): R31.0 - GROSS HEMATURIA
--- NOTE | 2020-01-18 09:18 | PN ---
Progress Note, Physician Chief Complaint: awake alert labs better; Aguero DCd no hematuria no pain - Current Medication List Current Medications: Active Medications Acetaminophen (Tylenol -) 650 mg PO Q6H PRN PRN Reason: PAIN SCALE 1-6 Alprazolam (Xanax -) 0.25 mg PO HS PRN PRN Reason: ANXIETY Ascorbic Acid (Vitamin C -) 500 mg PO DAILY [facility] Last Admin: 01/17/20 10:07 Dose: 500 mg Documented by: Bacitracin (Bacitracin -) 1 applic TP DAILY [facility] Last Admin: 01/17/20 10:08 Dose: 1 applic Documented by: Carvedilol (Coreg -) 3.125 mg PO BID [facility] Last Admin: 01/17/20 22:12 Dose: Not Given Documented by: Cholecalciferol (Vitamin D3 -) 1,000 unit PO DAILY [facility] Last Admin: 01/17/20 10:07 Dose: 1,000 unit Documented by: Famotidine (Pepcid -) 20 mg PO DAILY [facility] Last Admin: 01/17/20 10:07 Dose: 20 mg Documented by: Fentanyl (Sublimaze Injection -) 25 mcg IVPUSH [id number] PRN PRN Reason: PAIN-PACU ORDER X 4 DOSES ONLY Finasteride (Proscar -) 5 mg PO DAILY [facility] Last Admin: 01/17/20 10:08 Dose: 5 mg Documented by: Folic Acid (Folic Acid -) 1 mg PO DAILY [facility] Last Admin: 01/17/20 10:06 Dose: 1 mg Documented by: Ampicillin Sodium 1 gm/ Sodium (Chloride) 100 mls @ 200 mls/hr IVPB Q8H-IV [facility]; Protocol Last Admin: 01/18/20 01:05 Dose: 200 mls/hr Documented by: Dextrose (D5w -) 1,000 mls @ 42 mls/hr IV ASDIR [facility] Last Admin: 01/17/20 16:52 Dose: 42 mls/hr Documented by: Sodium Chloride (Normal Saline -) 1,000 mls @ 75 mls/hr IV ASDIR [facility] Last Admin: 01/17/20 16:53 Dose: Not Given Documented by: Levothyroxine Sodium (Synthroid -) 75 mcg PO DAILY@0700 [facility] Last Admin: 01/18/20 06:01 Dose: 75 mcg Documented by: Lidocaine (Lidoderm Patch -) 1 patch TP DAILY@1630 PRN PRN Reason: PAIN Miscellaneous (Lidoderm Patch Removal) 1 each MC DAILY@0430 [facility] Last Admin: 01/18/20 05:00 Dose: 1 each Documented by: Multivitamins/Minerals (Theragran-M) 1 each PO DAILY [facility] Last Admin: 01/17/20 10:07 Dose: 1 each Documented by: Ondansetron HCl (Zofran Injection) 4 mg IVPUSH Q6H PRN PRN Reason: NAUSEA AND/OR VOMITING Polyethylene Glycol (Miralax (For Daily Use) -) 17 gm PO BID PRN PRN Reason: CONSTIPATION Pregabalin (Lyrica -) 50 mg PO [facility] Last Admin: 01/17/20 22:09 Dose: 50 mg Documented by: Rosuvastatin Calcium (Crestor -) 10 mg PO [facility] Last Admin: 01/17/20 22:09 Dose: 10 mg Documented by: Tamsulosin HCl (Flomax -) 0.4 mg PO [facility] Last Admin: 01/17/20 22:09 Dose: 0.4 mg Documented by: Torsemide (Demadex -) 40 mg PO DAILY [facility] Zinc Oxide (Desitin Diaper Rash Oint -) 1 applic TP [facility] PRN PRN Reason: HYGEINE - Objective Vital Signs: Vital Signs Temperature 97.6 F 01/18/20 05:18 Pulse Rate 72 01/18/20 05:18 Respiratory Rate 18 01/18/20 05:18 Blood Pressure 92/60 01/18/20 05:18 O2 Sat by Pulse Oximetry (%) 94 L 01/17/20 21:00 Constitutional: Yes: No Distress, Calm Eyes: Yes: Conjunctiva Clear HENT: Yes: Atraumatic Neck: Yes: Supple Cardiovascular: Yes: Regular Rate and Rhythm Respiratory: Yes: Diminished Gastrointestinal: Yes: Soft. No: Tenderness Genitourinary: No: Hematuria Musculoskeletal: No: Joint Stiffness, Joint Swelling Extremities: No: Cold, Cool, Cyanosis Edema: No Integumentary: No: Rash Neurological: Yes: Alert ...Motor Strength: WNL Psychiatric: Yes: Alert. No: Agitated Labs: INR, PTT INR 1.26 (0.83-1.09) H 01/13/20 01:24 - ....Imaging Other: Report Reviewed Assessment/Plan 89 yo M history CHF s/p AICD, CAD s/p stents, HTN, HL, CKD, BPH, hypothyroid admitted with hematuria, dysuria and passing clots; UCx enteroccocus on IV ATB; s/p Cystoscopy hematuria stopped d/w pt's wide to f/u with for path results next week aRF/CRF - better; renal f/u - started on lasix sepsis UTI - toxic metabolic encephalopathy - ID f/u d.w pt and staff d/w pt's / phone - DC home with VNS and PT po ATB per ID; to f/u with and cardiology and PCP outpt in 1-2 weeks DVT pfx - can not use sq heparin due to bleeding decubs PFX turn q1 hour;
[2020-01-18 09:25] LABS: BASO % 0.5 % (0-2.0); EOS % 3.8 % (0-4.5); HEMATOCRIT 27.3 % (35.4-49); HEMOGLOBIN 9.2 GM/dL (11.7-16.9); LYMPH % 5.1 % (8-40); MCHC 33.6 g/dl (32.0-35.9); MEAN CELL VOLUME 92.4 fl (80-96); MEAN PLT VOLUME 9.1 fl (7.5-11.1); MONO % 11.2 % (3.8-10.2); NEUT % 79.4 % (42.8-82.8); PLATELET COUNT 75 K/MM3 (134-434); RBC 2.95 M/mm3 (4.00-5.60); RDW 17.7 % (11.9-15.9); WHITE BLOOD COUNT 7.2 K/mm3 (4.0-10.0)
[2020-01-18] MEDS: FOLIC ACID 1 MG TABLET (FP) PO SCH (09:38)
[2020-01-18] MEDS: BACITRACIN 15 GM TUBE TOPICAL OINTMENT TP SCH (09:38)
[2020-01-18] MEDS: FAMOTIDINE 20 MG TABLET PO SCH (09:38)
[2020-01-18] MEDS: CHOLECALCIFEROL (VIT D3) 1,000 UNIT (25 MCG) TABLET PO SCH (09:38)
[2020-01-18] MEDS: CARVEDILOL 3.125 MG TABLET (FP) PO SCH ×2 (09:38→22:32)
[2020-01-18] MEDS: ASCORBIC ACID 500 MG TABLET (FP) PO SCH (09:38)
[2020-01-18] MEDS: FINASTERIDE 5 MG TABLET (FP) PO SCH (09:38)
[2020-01-18] MEDS: MULTIVITAMINS THER W-MINERALS COMBO TABLET (FP) PO SCH (09:38)
[2020-01-18] MEDS: TORSEMIDE 20 MG TABLET (FP) PO SCH (09:38)
[2020-01-18 10:00] LABS: POTASSIUM 3.5 mmol/L (3.5-5.1)
[2020-01-18 10:05] LABS: BLOOD UREA NITROGEN 75.4 mg/dL (7-18); CALCIUM 7.5 mg/dL (8.5-10.1); CREATININE 2.3 mg/dL (0.55-1.3)
--- NOTE | 2020-01-18 14:28 | PN ---
Progress Note, Physician Chief Complaint: Events noted Post cystoscopy Not in distress History of Present Illness: Patient was seen and examined. Awake. Chart was reviewed Denies chest pain, SOB or palpitations Denies hematuria - Current Medication List Current Medications: Active Medications Acetaminophen (Tylenol -) 650 mg PO Q6H PRN PRN Reason: PAIN SCALE 1-6 Alprazolam (Xanax -) 0.25 mg PO HS PRN PRN Reason: ANXIETY Ascorbic Acid (Vitamin C -) 500 mg PO DAILY [facility] Last Admin: 01/18/20 09:38 Dose: 500 mg Documented by: Bacitracin (Bacitracin -) 1 applic TP DAILY [facility] Last Admin: 01/18/20 09:38 Dose: 1 applic Documented by: Carvedilol (Coreg -) 3.125 mg PO BID [facility] Last Admin: 01/18/20 09:38 Dose: 3.125 mg Documented by: Cholecalciferol (Vitamin D3 -) 1,000 unit PO DAILY [facility] Last Admin: 01/18/20 09:38 Dose: 1,000 unit Documented by: Famotidine (Pepcid -) 20 mg PO DAILY [facility] Last Admin: 01/18/20 09:38 Dose: 20 mg Documented by: Fentanyl (Sublimaze Injection -) 25 mcg IVPUSH [id number] PRN PRN Reason: PAIN-PACU ORDER X 4 DOSES ONLY Finasteride (Proscar -) 5 mg PO DAILY [facility] Last Admin: 01/18/20 09:38 Dose: 5 mg Documented by: Folic Acid (Folic Acid -) 1 mg PO DAILY [facility] Last Admin: 01/18/20 09:38 Dose: 1 mg Documented by: Ampicillin Sodium 1 gm/ Sodium (Chloride) 100 mls @ 200 mls/hr IVPB Q8H-IV [facility]; Protocol Last Admin: 01/18/20 09:37 Dose: 200 mls/hr Documented by: Dextrose (D5w -) 1,000 mls @ 42 mls/hr IV ASDIR [facility] Last Admin: 01/17/20 16:52 Dose: 42 mls/hr Documented by: Sodium Chloride (Normal Saline -) 1,000 mls @ 75 mls/hr IV ASDIR [facility] Last Admin: 01/17/20 16:53 Dose: Not Given Documented by: Levothyroxine Sodium (Synthroid -) 75 mcg PO DAILY@0700 [facility] Last Admin: 01/18/20 06:01 Dose: 75 mcg Documented by: Lidocaine (Lidoderm Patch -) 1 patch TP DAILY@1630 PRN PRN Reason: PAIN Miscellaneous (Lidoderm Patch Removal) 1 each MC DAILY@0430 [facility] Last Admin: 01/18/20 05:00 Dose: 1 each Documented by: Multivitamins/Minerals (Theragran-M) 1 each PO DAILY [facility] Last Admin: 01/18/20 09:38 Dose: 1 each Documented by: Ondansetron HCl (Zofran Injection) 4 mg IVPUSH Q6H PRN PRN Reason: NAUSEA AND/OR VOMITING Polyethylene Glycol (Miralax (For Daily Use) -) 17 gm PO BID PRN PRN Reason: CONSTIPATION Pregabalin (Lyrica -) 50 mg PO [facility] Last Admin: 01/17/20 22:09 Dose: 50 mg Documented by: Rosuvastatin Calcium (Crestor -) 10 mg PO [facility] Last Admin: 01/17/20 22:09 Dose: 10 mg Documented by: Tamsulosin HCl (Flomax -) 0.4 mg PO [facility] Last Admin: 01/17/20 22:09 Dose: 0.4 mg Documented by: Torsemide (Demadex -) 40 mg PO DAILY [facility] Last Admin: 01/18/20 09:38 Dose: 40 mg Documented by: Zinc Oxide (Desitin Diaper Rash Oint -) 1 applic TP ASDIR PRN PRN Reason: HYGEINE - Objective Vital Signs: Vital Signs Temperature 97.8 F 01/18/20 13:40 Pulse Rate 67 01/18/20 13:40 Respiratory Rate 18 01/18/20 13:40 Blood Pressure 97/48 L 01/18/20 13:40 O2 Sat by Pulse Oximetry (%) 94 L 01/18/20 09:00 Neck: Yes: Supple Cardiovascular: Yes: Regular Rate and Rhythm, S1, S2 Respiratory: Yes: Diminished Gastrointestinal: Yes: Normal Bowel Sounds, Soft. No: Tenderness Extremities: Yes: Amputation Edema: No Labs: CBC, BMP 01/18/20 08:30 01/18/20 08:30 Problem List - Problems (1) CKD (chronic kidney disease) Code(s): N18.9 - CHRONIC KIDNEY DISEASE, UNSPECIFIED Qualifiers: Chronic kidney disease stage: unspecified stage Qualified Code(s): N18.9 - Chronic kidney disease, unspecified (2) UTI (lower urinary tract infection) Code(s): N39.0 - URINARY TRACT INFECTION, SITE NOT SPECIFIED (3) ASHD (arteriosclerotic heart disease) Code(s): I25.10 - ATHSCL HEART DISEASE OF [place] CORONARY ARTERY W/O ANG PCTRS (4) Acute on chronic systolic (congestive) heart failure Code(s): I50.23 - ACUTE ON CHRONIC SYSTOLIC (CONGESTIVE) HEART FAILURE (5) Carotid artery disease Code(s): I77.9 - DISORDER OF ARTERIES AND ARTERIOLES, UNSPECIFIED (6) Diabetes mellitus Code(s): E11.9 - TYPE 2 DIABETES MELLITUS WITHOUT COMPLICATIONS (7) HTN (hypertension) Code(s): I10 - ESSENTIAL (PRIMARY) HYPERTENSION Qualifiers: (8) History of implantable cardiac defibrillator (ICD) Code(s): [id number] - (9) Hx of CABG Code(s): Z95.1 - PRESENCE OF AORTOCORONARY BYPASS GRAFT (10) Hypercholesterolemia Code(s): E78.0 - PURE HYPERCHOLESTEROLEMIA * DO NOT USE * (11) PVD (peripheral vascular disease) Code(s): I73.9 - PERIPHERAL VASCULAR DISEASE, UNSPECIFIED (12) Systolic dysfunction with acute on chronic heart failure Code(s): I50.23 - ACUTE ON CHRONIC SYSTOLIC (CONGESTIVE) HEART FAILURE (13) Weakness Code(s): R53.1 - WEAKNESS Assessment/Plan 1. Gross hematuria, dysuria, suspected cystitis 2. 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 Chronic systolic/diastolic failure with bilateral effusion 4. UTI 5. CAD post CABG, angina pectoris 6. HTN 7. NIDDM 8. Hypercholesterolemia 9. 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 Carotid stenosis 11. Hypothyroidism 12. 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 Macrocytic anemia 14. Thrombocytopenia 15. Sacral decubiti ulcer 16. Hypernatremia PLAN: 1. Transfuse as needed. input noted 2. Demadex PO and monitor renal recovery and electrolytes 3. Restart ASA 81 mg QD pending hemostasis. Continue Carvedilol 3.125 mg BID. Currently on Rosuvastatin 10 mg QHS. Not on ARB 4. Empiric antibiotic course Keyon Fair MD
--- NOTE | 2020-01-18 16:38 | PN ---
Progress Note (short form) - Note Progress Note: RENAL pt is awake and alert is by bedside Last Vital Signs Temp Pulse Resp BP Pulse Ox 97.8 F 67 18 97/48 L 94 L 01/18/20 13:40 01/18/20 13:40 01/18/20 13:40 01/18/20 13:40 01/18/20 09:00 lungs bilat air entry cvs s1s2 rr, defibrillator ab soft ext +edema CBC, BMP 01/18/20 08:30 01/18/20 08:30 Current Medications Generic Name Dose Route Start Last Admin Trade Name Freq PRN Reason Stop Dose Admin Acetaminophen 650 mg 01/16/20 16:49 Tylenol - PO Q6H PRN PAIN SCALE 1-6 Alprazolam 0.25 mg 01/16/20 16:49 Xanax - PO HS PRN ANXIETY Ascorbic Acid 500 mg 01/17/20 10:00 01/18/20 09:38 Vitamin C - PO 500 mg DAILY [facility] Administration Bacitracin 1 applic 01/17/20 10:00 01/18/20 09:38 Bacitracin - TP 1 applic DAILY [facility] Administration Carvedilol 3.125 mg 01/16/20 22:00 01/18/20 09:38 Coreg - PO 3.125 mg BID [facility] Administration Cholecalciferol 1,000 unit 01/17/20 10:00 01/18/20 09:38 Vitamin D3 - PO 1,000 unit DAILY [facility] Administration Famotidine 20 mg 01/17/20 10:00 01/18/20 09:38 Pepcid - PO 20 mg DAILY [facility] Administration Fentanyl 25 mcg 01/16/20 16:49 Sublimaze Injection - IVPUSH [id number] PRN PAIN-PACU ORDER X 4 DOSES ONLY Finasteride 5 mg 01/17/20 10:00 01/18/20 09:38 Proscar - PO 5 mg DAILY [facility] Administration Folic Acid 1 mg 01/17/20 10:00 01/18/20 09:38 Folic Acid - PO 1 mg DAILY [facility] Administration Ampicillin Sodium 1 gm/ Sodium 100 mls @ 200 mls/hr 01/16/20 18:00 01/18/20 09:37 Chloride IVPB 200 mls/hr Q8H-IV [facility] Administration Protocol Dextrose 1,000 mls @ 42 mls/hr 01/16/20 16:49 07/03/20 16:52 D5w - IV 42 mls/hr ASDIR [facility] Administration Sodium Chloride 1,000 mls @ 75 mls/hr 01/16/20 16:49 01/17/20 16:53 Normal Saline - IV Not Given ASDIR [facility] Levothyroxine Sodium 75 mcg 01/17/20 07:00 01/18/20 06:01 Synthroid - PO 75 mcg DAILY@0700 [facility] Administration Lidocaine 1 patch 01/16/20 16:49 Lidoderm Patch - TP DAILY@1630 PRN PAIN Miscellaneous 1 each 01/17/20 04:30 01/18/20 05:00 Lidoderm Patch Removal MC 1 each DAILY@0430 [facility] Administration Multivitamins/Minerals 1 each 01/17/20 10:00 01/18/20 09:38 Theragran-M PO 1 each DAILY [facility] Administration Ondansetron HCl 4 mg 01/16/20 16:49 Zofran Injection IVPUSH Q6H PRN NAUSEA AND/OR VOMITING Polyethylene Glycol 17 gm 01/16/20 16:49 Miralax (For Daily Use) - PO BID PRN CONSTIPATION Pregabalin 50 mg 01/16/20 22:00 01/17/20 22:09 Lyrica - PO 50 mg HS [facility] Administration Rosuvastatin Calcium 10 mg 01/16/20 22:00 01/17/20 22:09 Crestor - PO 10 mg HS [facility] Administration Tamsulosin HCl 0.4 mg 01/16/20 22:00 01/17/20 22:09 Flomax - PO 0.4 mg HS [facility] Administration Torsemide 40 mg 01/18/20 10:00 01/18/20 09:38 Demadex - PO 40 mg DAILY [facility] Administration Zinc Oxide 1 applic 01/16/20 16:49 Desitin Diaper Rash Oint - TP ASDIR PRN HYGEINE 89 year old male with history of CKD stage 4 (baseline Cr 1.7-2.2), CAD s/p CABG, BPH, CHF 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 1. CKD stage 4 2. Dysuria/Suspected cystitis 3. CAD s/p CABG 4. 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 Acute on chronic anemia monitor renal function on torsemide Trend renal function and electrolytes daily if medically cleared and discharged will need to have repeat labs within 3-5 days of discharge and close monitoring of renal function and volume status Pt and do not wish to pursue renal replacement therapy would dc fluids. pt is on diuretics MV
[2020-01-18] MEDS: DEXTROSE 5%-WATER - 1,000 ML IV SCH (17:03)
[2020-01-18] MEDS: SODIUM CHLORIDE 1,000 ML IV SCH (22:21)
[2020-01-18] MEDS: PREGABALIN 50 MG CAPSULE PO SCH (22:32)
[2020-01-18] MEDS: ROSUVASTATIN CA 10 MG TABLET (FP) PO SCH (22:32)
[2020-01-18] MEDS: TAMSULOSIN HCL 0.4 MG CAP PO SCH (22:32)
--- NOTE | 2020-01-18 23:01 | RAPID ---
Physical Examination Vital Signs: Vital Signs Temperature 98.3 F 01/18/20 22:37 Pulse Rate 80 01/18/20 22:37 Respiratory Rate 18 01/18/20 22:37 Blood Pressure 167/92 L 01/18/20 22:37 O2 Sat by Pulse Oximetry (%) 96 L 01/18/20 09:00 Rapid response called patient was found to be sating at 86 as they were laying him supine to change him. Patient was on 2 L nasal can which increased to 5 L patient subsequently sat at 90's. Constitutional: Yes: Anxious Eyes: Yes: Conjunctiva Clear HENT: Yes: Atraumatic Neck: Yes: Supple Cardiovascular: Yes: Regular Rate and Rhythm Respiratory: Yes: Regular, CTA Bilaterally Labs: CBC, BMP 01/18/20 08:30 01/18/20 08:30
[2020-01-19] MEDS: AMPICILLIN - 1 GM in SODIUM CHLORIDE 100 ML IVPB SCH ×2 (01:49→10:44)
[2020-01-19] MEDS: LIDOCAINE PATCH REMOVAL MC SCH (05:53)
[2020-01-19] MEDS: LEVOTHYROXINE NA 75 MCG TABLET (FP) PO SCH (07:02)
--- NOTE | 2020-01-19 08:42 | PN ---
Progress Note, Physician Chief Complaint: less po intake refused dome meds; combative especially at night; more lethargic and had some episodes of O2 desat - Current Medication List Current Medications: Active Medications Acetaminophen (Tylenol -) 650 mg PO Q6H PRN PRN Reason: PAIN SCALE 1-6 Alprazolam (Xanax -) 0.25 mg PO HS PRN PRN Reason: ANXIETY Ascorbic Acid (Vitamin C -) 500 mg PO DAILY [facility] Last Admin: 01/18/20 09:38 Dose: 500 mg Documented by: Bacitracin (Bacitracin -) 1 applic TP DAILY [facility] Last Admin: 01/18/20 09:38 Dose: 1 applic Documented by: Carvedilol (Coreg -) 3.125 mg PO BID [facility] Last Admin: 01/18/20 22:32 Dose: Not Given Documented by: Cholecalciferol (Vitamin D3 -) 1,000 unit PO DAILY [facility] Last Admin: 01/18/20 09:38 Dose: 1,000 unit Documented by: Famotidine (Pepcid -) 20 mg PO DAILY [facility] Last Admin: 01/18/20 09:38 Dose: 20 mg Documented by: Fentanyl (Sublimaze Injection -) 25 mcg IVPUSH [id number] PRN PRN Reason: PAIN-PACU ORDER X 4 DOSES ONLY Finasteride (Proscar -) 5 mg PO DAILY [facility] Last Admin: 01/18/20 09:38 Dose: 5 mg Documented by: Folic Acid (Folic Acid -) 1 mg PO DAILY [facility] Last Admin: 01/18/20 09:38 Dose: 1 mg Documented by: Ampicillin Sodium 1 gm/ Sodium (Chloride) 100 mls @ 200 mls/hr IVPB Q8H-IV [facility]; Protocol Last Admin: 01/19/20 01:49 Dose: 200 mls/hr Documented by: Dextrose (D5w -) 1,000 mls @ 42 mls/hr IV ASDIR [facility] Last Admin: 01/18/20 17:03 Dose: 42 mls/hr Documented by: Sodium Chloride (Normal Saline -) 1,000 mls @ 75 mls/hr IV ASDIR [facility] Last Admin: 01/18/20 22:21 Dose: 75 mls/hr Documented by: Levothyroxine Sodium (Synthroid -) 75 mcg PO DAILY@0700 [facility] Last Admin: 01/19/20 07:02 Dose: Not Given Documented by: Lidocaine (Lidoderm Patch -) 1 patch TP DAILY@1630 PRN PRN Reason: PAIN Miscellaneous (Lidoderm Patch Removal) 1 each MC DAILY@0430 [facility] Last Admin: 01/19/20 05:53 Dose: 1 each Documented by: Multivitamins/Minerals (Theragran-M) 1 each PO DAILY [facility] Last Admin: 01/18/20 09:38 Dose: 1 each Documented by: Ondansetron HCl (Zofran Injection) 4 mg IVPUSH Q6H PRN PRN Reason: NAUSEA AND/OR VOMITING Polyethylene Glycol (Miralax (For Daily Use) -) 17 gm PO BID PRN PRN Reason: CONSTIPATION Pregabalin (Lyrica -) 50 mg PO [facility] Last Admin: 01/18/20 22:32 Dose: 50 mg Documented by: Rosuvastatin Calcium (Crestor -) 10 mg PO [facility] Last Admin: 01/18/20 22:32 Dose: 10 mg Documented by: Tamsulosin HCl (Flomax -) 0.4 mg PO [facility] Last Admin: 01/18/20 22:32 Dose: 0.4 mg Documented by: Torsemide (Demadex -) 40 mg PO DAILY [facility] Last Admin: 01/18/20 09:38 Dose: 40 mg Documented by: Zinc Oxide (Desitin Diaper Rash Oint -) 1 applic TP ASDIR PRN PRN Reason: HYGEINE - Objective Vital Signs: Vital Signs Temperature 97.6 F 01/19/20 06:38 Pulse Rate 69 01/19/20 06:39 Respiratory Rate 18 01/19/20 06:38 Blood Pressure 95/60 01/19/20 06:38 O2 Sat by Pulse Oximetry (%) 100 01/19/20 06:39 Constitutional: Yes: Anxious Eyes: Yes: Conjunctiva Clear HENT: Yes: Atraumatic Neck: Yes: Supple Cardiovascular: Yes: Regular Rate and Rhythm Respiratory: Yes: Diminished Gastrointestinal: Yes: Soft. No: Tenderness Genitourinary: No: Hematuria Musculoskeletal: No: Joint Stiffness Extremities: No: Calf Tenderness, Cold, Cool, Cyanosis Edema: No Integumentary: Yes: Pressure Ulcer Neurological: Yes: Alert. No: Oriented Psychiatric: Yes: Alert. No: Oriented, Agitated Labs: CBC, BMP 01/18/20 08:30 07/04/20 08:30 INR, PTT INR 1.26 (0.83-1.09) H 01/13/20 01:24 - ....Imaging Other: Report Reviewed Assessment/Plan 89 yo M history CHF s/p AICD, CAD s/p stents, HTN, HL, CKD, BPH, hypothyroid admitted with hematuria, dysuria and passing clots; UCx enteroccocus on IV ATB; s/p Cystoscopy hematuria stopped combative, agitated, O2 desat sepsis UTI - toxic metabolic encephalopathy - ID f/u renal and cardio f/u; CXR; labs; pulm eval po ATB per ID; DVT pfx - can not use sq heparin due to bleeding decubs PFX turn q1 hour; wounds care; protein malnutrition - add po AA
[2020-01-19] MEDS: MULTIVITAMINS THER W-MINERALS COMBO TABLET (FP) PO SCH (09:59)
[2020-01-19] MEDS: ASCORBIC ACID 500 MG TABLET (FP) PO SCH (09:59)
[2020-01-19] MEDS: CHOLECALCIFEROL (VIT D3) 1,000 UNIT (25 MCG) TABLET PO SCH (09:59)
[2020-01-19] MEDS: FAMOTIDINE 20 MG TABLET PO SCH (09:59)
[2020-01-19] MEDS: TORSEMIDE 20 MG TABLET (FP) PO SCH (10:00)
[2020-01-19] MEDS: BACITRACIN 15 GM TUBE TOPICAL OINTMENT TP SCH (10:00)
[2020-01-19] MEDS: FINASTERIDE 5 MG TABLET (FP) PO SCH (10:00)
[2020-01-19] MEDS: CARVEDILOL 3.125 MG TABLET (FP) PO SCH ×2 (10:00→21:29)
[2020-01-19] MEDS: FOLIC ACID 1 MG TABLET (FP) PO SCH (10:00)
--- NOTE | 2020-01-19 12:58 | PN ---
Progress Note (short form) - Note Progress Note: RENAL pt is awake and alert wants to go home Last Vital Signs Temp Pulse Resp BP Pulse Ox 98.0 F 70 18 92/50 L 93 L 01/19/20 09:25 01/19/20 09:25 01/19/20 09:25 01/19/20 09:25 01/19/20 10:00 lungs bilat air entry cvs s1s2 rr, defibrillator palpable ab soft ext +edema CBC, BMP 01/18/20 08:30 01/18/20 08:30 Current Medications Generic Name Dose Route Start Last Admin Trade Name Freq PRN Reason Stop Dose Admin Acetaminophen 650 mg 01/16/20 16:49 Tylenol - PO Q6H PRN PAIN SCALE 1-6 Alprazolam 0.25 mg 01/16/20 16:49 Xanax - PO HS PRN ANXIETY Ascorbic Acid 500 mg 01/17/20 10:00 01/19/20 09:59 Vitamin C - PO 500 mg DAILY [facility] Administration Bacitracin 1 applic 01/17/20 10:00 01/19/20 10:00 Bacitracin - TP 1 applic DAILY [facility] Administration Carvedilol 3.125 mg 01/16/20 22:00 01/19/20 10:00 Coreg - PO Not Given BID [facility] Cholecalciferol 1,000 unit 01/17/20 10:00 01/19/20 09:59 Vitamin D3 - PO 1,000 unit DAILY [facility] Administration Famotidine 20 mg 01/17/20 10:00 01/19/20 09:59 Pepcid - PO 20 mg DAILY [facility] Administration Fentanyl 25 mcg 01/16/20 16:49 Sublimaze Injection - IVPUSH [id number] PRN PAIN-PACU ORDER X 4 DOSES ONLY Finasteride 5 mg 01/17/20 10:00 01/19/20 10:00 Proscar - PO 5 mg DAILY [facility] Administration Folic Acid 1 mg 01/17/20 10:00 01/19/20 10:00 Folic Acid - PO 1 mg DAILY [facility] Administration Ampicillin Sodium 1 gm/ Sodium 100 mls @ 200 mls/hr 01/16/20 18:00 01/19/20 10:44 Chloride IVPB Not Given Q8H-IV [facility] Protocol Dextrose 1,000 mls @ 42 mls/hr 01/16/20 16:49 01/18/20 17:03 D5w - IV 42 mls/hr ASDIR [facility] Administration Sodium Chloride 1,000 mls @ 75 mls/hr 01/16/20 16:49 01/18/20 22:21 Normal Saline - IV 75 mls/hr ASDIR [facility] Administration Levothyroxine Sodium 75 mcg 01/17/20 07:00 01/19/20 07:02 Synthroid - PO Not Given DAILY@0700 [facility] Lidocaine 1 patch 01/16/20 16:49 Lidoderm Patch - TP DAILY@1630 PRN PAIN Miscellaneous 1 each 01/17/20 04:30 01/19/20 05:53 Lidoderm Patch Removal MC 1 each DAILY@0430 [facility] Administration Multivitamins/Minerals 1 each 01/17/20 10:00 01/19/20 09:59 Theragran-M PO 1 each DAILY [facility] Administration Ondansetron HCl 4 mg 01/16/20 16:49 Zofran Injection IVPUSH Q6H PRN NAUSEA AND/OR VOMITING Polyethylene Glycol 17 gm 01/16/20 16:49 Miralax (For Daily Use) - PO BID PRN CONSTIPATION Pregabalin 50 mg 01/16/20 22:00 01/18/20 22:32 Lyrica - PO 50 mg HS [facility] Administration Rosuvastatin Calcium 10 mg 01/16/20 22:00 01/18/20 22:32 Crestor - PO 10 mg HS [facility] Administration Tamsulosin HCl 0.4 mg 01/16/20 22:00 01/18/20 22:32 Flomax - PO 0.4 mg HS [facility] Administration Torsemide 40 mg 01/18/20 10:00 01/19/20 10:00 Demadex - PO Not Given DAILY [facility] Zinc Oxide 1 applic 01/16/20 16:49 Desitin Diaper Rash Oint - TP ASDIR PRN HYGEINE 89 year old male with history of CKD stage 4 (baseline Cr 1.7-2.2), CAD s/p CAB G, BPH, CHF 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 1. CKD stage 4 2. Dysuria/Suspected cystitis 3. CAD s/p CABG 4. 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 Acute on chronic anemia 6. infiltrate plus effusion on right monitor renal function on torsemide Trend renal function and electrolytes daily if medically cleared and discharged will need to have repeat labs within 3-5 days of discharge and close monitoring of renal function and volume status Pt and do not wish to pursue renal replacement therapy would dc fluids. pt is on diuretics and has an effusion ?ct scan of chest/?diagnostic thoracentesis MV
--- NOTE | 2020-01-19 14:29 | PN ---
Progress Note, Physician Chief Complaint: Events noted Post cystoscopy Not in distress History of Present Illness: Patient was seen and examined. Awake. Chart was reviewed Denies chest pain, SOB or palpitations (+) generalized weakness Denies hematuria - Current Medication List Current Medications: Active Medications Acetaminophen (Tylenol -) 650 mg PO Q6H PRN PRN Reason: PAIN SCALE 1-6 Alprazolam (Xanax -) 0.25 mg PO HS PRN PRN Reason: ANXIETY Ascorbic Acid (Vitamin C -) 500 mg PO DAILY [facility] Last Admin: 01/19/20 09:59 Dose: 500 mg Documented by: Bacitracin (Bacitracin -) 1 applic TP DAILY [facility] Last Admin: 01/19/20 10:00 Dose: 1 applic Documented by: Carvedilol (Coreg -) 3.125 mg PO BID [facility] Last Admin: 01/19/20 10:00 Dose: Not Given Documented by: Cholecalciferol (Vitamin D3 -) 1,000 unit PO DAILY [facility] Last Admin: 01/19/20 09:59 Dose: 1,000 unit Documented by: Famotidine (Pepcid -) 20 mg PO DAILY [facility] Last Admin: 01/19/20 09:59 Dose: 20 mg Documented by: Fentanyl (Sublimaze Injection -) 25 mcg IVPUSH [id number] PRN PRN Reason: PAIN-PACU ORDER X 4 DOSES ONLY Finasteride (Proscar -) 5 mg PO DAILY [facility] Last Admin: 01/19/20 10:00 Dose: 5 mg Documented by: Folic Acid (Folic Acid -) 1 mg PO DAILY [facility] Last Admin: 01/19/20 10:00 Dose: 1 mg Documented by: Ampicillin Sodium 1 gm/ Sodium (Chloride) 100 mls @ 200 mls/hr IVPB Q8H-IV [facility]; Protocol Last Admin: 01/19/20 10:44 Dose: Not Given Documented by: Sodium Chloride (Normal Saline -) 1,000 mls @ 75 mls/hr IV ASDIR [facility] Last Admin: 01/18/20 22:21 Dose: 75 mls/hr Documented by: Levothyroxine Sodium (Synthroid -) 75 mcg PO DAILY@0700 [facility] Last Admin: 01/19/20 07:02 Dose: Not Given Documented by: Lidocaine (Lidoderm Patch -) 1 patch TP DAILY@1630 PRN PRN Reason: PAIN Miscellaneous (Lidoderm Patch Removal) 1 each MC DAILY@0430 [facility] Last Admin: 01/19/20 05:53 Dose: 1 each Documented by: Multivitamins/Minerals (Theragran-M) 1 each PO DAILY [facility] Last Admin: 01/19/20 09:59 Dose: 1 each Documented by: Ondansetron HCl (Zofran Injection) 4 mg IVPUSH Q6H PRN PRN Reason: NAUSEA AND/OR VOMITING Polyethylene Glycol (Miralax (For Daily Use) -) 17 gm PO BID PRN PRN Reason: CONSTIPATION Pregabalin (Lyrica -) 50 mg PO [facility] Last Admin: 01/18/20 22:32 Dose: 50 mg Documented by: Rosuvastatin Calcium (Crestor -) 10 mg PO [facility] Last Admin: 01/18/20 22:32 Dose: 10 mg Documented by: Tamsulosin HCl (Flomax -) 0.4 mg PO [facility] Last Admin: 01/18/20 22:32 Dose: 0.4 mg Documented by: Torsemide (Demadex -) 40 mg PO DAILY [facility] Last Admin: 01/19/20 10:00 Dose: Not Given Documented by: Zinc Oxide (Desitin Diaper Rash Oint -) 1 applic TP [facility]IR PRN PRN Reason: HYGEINE - Objective Vital Signs: Vital Signs Temperature 98.0 F 01/19/20 09:25 Pulse Rate 70 01/19/20 09:25 Respiratory Rate 18 01/19/20 09:25 Blood Pressure 92/50 L 01/19/20 09:25 O2 Sat by Pulse Oximetry (%) 93 L 01/19/20 10:00 Neck: Yes: Supple Cardiovascular: Yes: Regular Rate and Rhythm, S1, S2 Respiratory: Yes: Diminished Gastrointestinal: Yes: Normal Bowel Sounds, Soft. No: Tenderness Extremities: Yes: Amputation Edema: No Labs: CBC, BMP 01/18/20 08:30 01/18/20 08:30 INR, PTT INR 1.26 (0.83-1.09) H 01/13/20 01:24 - ....Imaging Chest X-ray: Report Reviewed (Moderate right pleural effusion) Problem List - Problems (1) CKD (chronic kidney disease) Code(s): N18.9 - CHRONIC KIDNEY DISEASE, UNSPECIFIED Qualifiers: Chronic kidney disease stage: unspecified stage Qualified Code(s): N18.9 - Chronic kidney disease, unspecified (2) UTI (lower urinary tract infection) Code(s): N39.0 - URINARY TRACT INFECTION, SITE NOT SPECIFIED (3) ASHD (arteriosclerotic heart disease) Code(s): I25.10 - ATHSCL HEART DISEASE OF [place] CORONARY ARTERY W/O ANG PCTRS (4) Acute on chronic systolic (congestive) heart failure Code(s): I50.23 - ACUTE ON CHRONIC SYSTOLIC (CONGESTIVE) HEART FAILURE (5) Carotid artery disease Code(s): I77.9 - DISORDER OF ARTERIES AND ARTERIOLES, UNSPECIFIED (6) Diabetes mellitus Code(s): E11.9 - TYPE 2 DIABETES MELLITUS WITHOUT COMPLICATIONS (7) HTN (hypertension) Code(s): I10 - ESSENTIAL (PRIMARY) HYPERTENSION Qualifiers: (8) History of implantable cardiac defibrillator (ICD) Code(s): [id number] - (9) Hx of CABG Code(s): Z95.1 - PRESENCE OF AORTOCORONARY BYPASS GRAFT (10) Hypercholesterolemia Code(s): E78.0 - PURE HYPERCHOLESTEROLEMIA * DO NOT USE * (11) PVD (peripheral vascular disease) Code(s): I73.9 - PERIPHERAL VASCULAR DISEASE, UNSPECIFIED (12) Systolic dysfunction with acute on chronic heart failure Code(s): I50.23 - ACUTE ON CHRONIC SYSTOLIC (CONGESTIVE) HEART FAILURE (13) Weakness Code(s): R53.1 - WEAKNESS Assessment/Plan 1. Gross hematuria, dysuria, suspected cystitis 2. 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 Chronic systolic/diastolic failure with bilateral effusion 4. UTI 5. CAD post CABG, angina pectoris 6. HTN 7. NIDDM 8. Hypercholesterolemia 9. 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 Carotid stenosis 11. Hypothyroidism 12. PAD post [employer] and amputation (TMA) 13. Macrocytic anemia 14. Thrombocytopenia 15. Sacral decubiti ulcer 16. Hypernatremia 17. Moderate right pleural effusion PLAN: 1. Transfuse as needed. Monitor renal function and electrolytes 2. Demadex PO and monitor renal recovery and electrolytes 3. Restart ASA 81 mg QD pending hemostasis. Continue Carvedilol 3.125 mg BID. Currently on Rosuvastatin 10 mg QHS. Not on ARB 4. Empiric antibiotic course 5. CXR noted with pleural effusion. Agree with Renal input regarding possible diagnostic thoracentesis if agreeable Keyon Fair MD
[2020-01-19] MEDS: PREGABALIN 50 MG CAPSULE PO SCH (21:28)
[2020-01-19] MEDS: TAMSULOSIN HCL 0.4 MG CAP PO SCH (21:29)
[2020-01-19] MEDS: AMOXICILLIN 500 MG CAPSULE (FP) PO SCH (21:29)
[2020-01-19] MEDS: ROSUVASTATIN CA 10 MG TABLET (FP) PO SCH (21:29)
[2020-01-20] MEDS: LIDOCAINE PATCH REMOVAL MC SCH (05:03)
--- NOTE | 2020-01-20 05:47 | HOSP ---
Subjective - Review of Symptoms Events since last encounter: Hospitalist Encounter Was informed by the IM Announcer, that a patient of Dr Noonan was Hypoxic and reporting SOB, was asked to assess. Arrived to bedside patient is awake, alert and oriented in moderate respiratory distress on a Venturi Mask, RN at bedside. Patient reports having SOB while trying to reposition in his bed on nasal cannula. He reports respiratory improvement on the Venturi Mask Examined patient see EMR Assessment: 89 yo M history CHF s/p AICD, CAD s/p stents, HTN, HL, CKD, BPH, Hypothyroid. Admitted for Hematuria, UTI Plan: CXR portable- stat ABG-stat Venturi Mask 40% Pulmonary: Yes: Dyspnea Physical Examination Vital Signs: Vital Signs Temperature 97.4 F L 01/19/20 23:00 Pulse Rate 80 01/19/20 23:00 Respiratory Rate 18 01/19/20 23:00 Blood Pressure 100/46 L 01/19/20 23:00 O2 Sat by Pulse Oximetry (%) 98 01/19/20 21:00 Constitutional: Yes: Moderate Distress Eyes: Yes: WNL, Conjunctiva Clear, EOM Intact, PERRL HENT: Yes: WNL, Atraumatic, Normocephalic Neck: Yes: WNL, Supple, Trachea Midline Cardiovascular: Yes: Regular Rate and Rhythm, S1, S2 Respiratory: Yes: Diminished (bases), On Venti-Mask, Rhonchi, Tachypnea Gastrointestinal: Yes: Normal Bowel Sounds, Soft, Abdomen, Obese ...Rectal Exam: Yes: Deferred Breast(s): Yes: WNL Extremities: Yes: Amputation Edema: No Peripheral Pulses WNL: Yes Neurological: Yes: Alert, Oriented, Cran Nerves II-XII Intact ...Motor Strength: WNL Psychiatric: Yes: WNL, Alert, Oriented Labs: CBC, BMP 01/18/20 08:30 01/18/20 08:30 Laboratory Results - last 24 hr 01/19/20 01/19/20 01/19/20 06:06 17:08 20:51 POC Glucometer 151 204 213 Current Medications Generic Name Dose Route Start Last Admin Trade Name Freq PRN Reason Stop Dose Admin Acetaminophen 650 mg 01/16/20 16:49 Tylenol - PO Q6H PRN PAIN SCALE 1-6 Alprazolam 0.25 mg 07/02/20 16:49 Xanax - PO HS PRN ANXIETY Amoxicillin 500 mg 01/19/20 22:00 01/19/20 21:29 Amoxicillin - PO 500 mg BID ABBEY Administration Ascorbic Acid 500 mg 01/17/20 10:00 01/19/20 09:59 Vitamin C - PO 500 mg DAILY ABBEY Administration Bacitracin 1 applic 01/17/20 10:00 01/19/20 10:00 Bacitracin - TP 1 applic DAILY ABBEY Administration Carvedilol 3.125 mg 01/16/20 22:00 01/19/20 21:29 Coreg - PO Not Given BID ABBEY Cholecalciferol 1,000 unit 01/17/20 10:00 01/19/20 09:59 Vitamin D3 - PO 1,000 unit DAILY ABBEY Administration Famotidine 20 mg 01/17/20 10:00 01/19/20 09:59 Pepcid - PO 20 mg DAILY ABBEY Administration Fentanyl 25 mcg 01/16/20 16:49 Sublimaze Injection - IVPUSH [id number] PRN PAIN-PACU ORDER X 4 DOSES ONLY Finasteride 5 mg 01/17/20 10:00 01/19/20 10:00 Proscar - PO 5 mg DAILY ABBEY Administration Folic Acid 1 mg 01/17/20 10:00 01/19/20 10:00 Folic Acid - PO 1 mg DAILY ABBEY Administration Levothyroxine Sodium 75 mcg 01/17/20 07:00 01/19/20 07:02 Synthroid - PO Not Given DAILY@0700 [facility] Lidocaine 1 patch 01/16/20 16:49 Lidoderm Patch - TP DAILY@1630 PRN PAIN Miscellaneous 1 each 01/17/20 04:30 01/20/20 05:03 Lidoderm Patch Removal MC 1 each DAILY@0430 ABBEY Administration Multivitamins/Minerals 1 each 01/17/20 10:00 01/19/20 09:59 Theragran-M PO 1 each DAILY ABBEY Administration Polyethylene Glycol 17 gm 01/16/20 16:49 Miralax (For Daily Use) - PO BID PRN CONSTIPATION Pregabalin 50 mg 01/16/20 22:00 01/19/20 21:28 Lyrica - PO 50 mg HS ABBEY Administration Rosuvastatin Calcium 10 mg 01/16/20 22:00 01/19/20 21:29 Crestor - PO 10 mg HS ABBEY Administration Tamsulosin HCl 0.4 mg 01/16/20 22:00 01/19/20 21:29 Flomax - PO 0.4 mg HS ABBEY Administration Torsemide 40 mg 01/18/20 10:00 01/19/20 10:00 Demadex - PO Not Given DAILY ABBEY Zinc Oxide 1 applic 01/16/20 16:49 Desitin Diaper Rash Oint - TP ASDIR PRN HYGEINE Intake & Output 01/17/20 01/18/20 01/19/20 01/20/20 23:59 23:59 23:59 23:59 Intake Total 7261 750 Output Total 70711 4300 Balance -3639 -4300 750 Weight 61.235 kg 60.328 kg 59.421 kg Hospitalist Encounter Outcome: As per the RN, patient's respiratory status improved on Venturi Mask- Spo2 96- 97% Chest Xray and ABG not done-pending Informed the RN to notify Dr Noonan of this morning events Critical Care Total Critical Care Time (in minutes): 35 Critical Care Statement: The care of this patient involved high complexity decision making to prevent further life threatening deterioration of the patient's condition and/or to evaluate & treat vital organ system(s) failure or risk of failure.
[2020-01-20] MEDS: LEVOTHYROXINE NA 75 MCG TABLET (FP) PO SCH (06:00)
[2020-01-20 06:53] LABS: ARTERIAL BLD GAS O2 SATURATION 66.5 mmHg (95-98); ARTERIAL BLOOD GAS BASE EXCESS -4.2 mmol/L (-2-2); ARTERIAL BLOOD GAS pH 7.304 (7.350-7.450)
--- NOTE | 2020-01-20 09:31 | PN ---
Progress Note (short form) - Note Progress Note: Had increasing SOB with desaturation this am, placed on Venturi with improvement; CXR: left slightly worsenning ,rt same; no new labs Vital Signs Temperature 98.1 F 01/20/20 06:45 Pulse Rate 89 01/20/20 06:45 Respiratory Rate 20 01/20/20 06:45 Blood Pressure 102/54 L 01/20/20 06:45 O2 Sat by Pulse Oximetry (%) 98 01/19/20 21:00 On O2 mask Neck: Yes: Supple Cardiovascular: Yes: Regular Rate and Rhythm, S1, S2 Respiratory: Yes: Diminished Gastrointestinal: Yes: Normal Bowel Sounds, Soft. No: Tenderness Extremities: Yes: Amputation Edema: No Labs: CBC, BMP 01/18/20 08:30 01/18/20 08:30 - ....Imaging Chest X-ray: Report Reviewed (Moderate right pleural effusion), some worsenning on left Active Medications Acetaminophen (Tylenol -) 650 mg PO Q6H PRN PRN Reason: PAIN SCALE 1-6 Alprazolam (Xanax -) 0.25 mg PO HS PRN PRN Reason: ANXIETY Amoxicillin (Amoxicillin -) 500 mg PO BID [facility] Last Admin: 01/19/20 21:29 Dose: 500 mg Documented by: Ascorbic Acid (Vitamin C -) 500 mg PO DAILY [facility] Last Admin: 01/19/20 09:59 Dose: 500 mg Documented by: Bacitracin (Bacitracin -) 1 applic TP DAILY [facility] Last Admin: 01/19/20 10:00 Dose: 1 applic Documented by: Carvedilol (Coreg -) 3.125 mg PO BID [facility] Last Admin: 01/19/20 21:29 Dose: Not Given Documented by: Cholecalciferol (Vitamin D3 -) 1,000 unit PO DAILY [facility] Last Admin: 01/19/20 09:59 Dose: 1,000 unit Documented by: Famotidine (Pepcid -) 20 mg PO DAILY [facility] Last Admin: 01/19/20 09:59 Dose: 20 mg Documented by: Fentanyl (Sublimaze Injection -) 25 mcg IVPUSH [id number] PRN PRN Reason: PAIN-PACU ORDER X 4 DOSES ONLY Finasteride (Proscar -) 5 mg PO DAILY [facility] Last Admin: 01/19/20 10:00 Dose: 5 mg Documented by: Folic Acid (Folic Acid -) 1 mg PO DAILY [facility] Last Admin: 01/19/20 10:00 Dose: 1 mg Documented by: Levothyroxine Sodium (Synthroid -) 75 mcg PO DAILY@0700 [facility] Last Admin: 01/20/20 06:00 Dose: 75 mcg Documented by: Lidocaine (Lidoderm Patch -) 1 patch TP DAILY@1630 PRN PRN Reason: PAIN Miscellaneous (Lidoderm Patch Removal) 1 each MC DAILY@0430 [facility] Last Admin: 01/20/20 05:03 Dose: 1 each Documented by: Multivitamins/Minerals (Theragran-M) 1 each PO DAILY [facility] Last Admin: 01/19/20 09:59 Dose: 1 each Documented by: Polyethylene Glycol (Miralax (For Daily Use) -) 17 gm PO BID PRN PRN Reason: CONSTIPATION Pregabalin (Lyrica -) 50 mg PO HS [facility] Last Admin: 01/19/20 21:28 Dose: 50 mg Documented by: Rosuvastatin Calcium (Crestor -) 10 mg PO [facility] Last Admin: 01/19/20 21:29 Dose: 10 mg Documented by: Tamsulosin HCl (Flomax -) 0.4 mg PO HS [facility] Last Admin: 01/19/20 21:29 Dose: 0.4 mg Documented by: Torsemide (Demadex -) 40 mg PO DAILY [facility] Last Admin: 01/19/20 10:00 Dose: Not Given Documented by: Zinc Oxide (Desitin Diaper Rash Oint -) 1 applic TP ASDIR PRN PRN Reason: HYGEINE Problem List - Problems (1) CKD (chronic kidney disease) Code(s): N18.9 - CHRONIC KIDNEY DISEASE, UNSPECIFIED Qualifiers: Chronic kidney disease stage: unspecified stage Qualified Code(s): N18.9 - Chronic kidney disease, unspecified (2) UTI (lower urinary tract infection) Code(s): N39.0 - URINARY TRACT INFECTION, SITE NOT SPECIFIED (3) ASHD (arteriosclerotic heart disease) Code(s): I25.10 - ATHSCL HEART DISEASE OF [place] CORONARY ARTERY W/O ANG PCTRS (4) Acute on chronic systolic (congestive) heart failure Code(s): I50.23 - ACUTE ON CHRONIC SYSTOLIC (CONGESTIVE) HEART FAILURE (5) Carotid artery disease Code(s): I77.9 - DISORDER OF ARTERIES AND ARTERIOLES, UNSPECIFIED (6) Diabetes mellitus Code(s): E11.9 - TYPE 2 DIABETES MELLITUS WITHOUT COMPLICATIONS (7) HTN (hypertension) Code(s): I10 - ESSENTIAL (PRIMARY) HYPERTENSION Qualifiers: (8) History of implantable cardiac defibrillator (ICD) Code(s): [id number] - (9) Hx of CABG Code(s): Z95.1 - PRESENCE OF AORTOCORONARY BYPASS GRAFT (10) Hypercholesterolemia Code(s): E78.0 - PURE HYPERCHOLESTEROLEMIA * DO NOT USE * (11) PVD (peripheral vascular disease) Code(s): I73.9 - PERIPHERAL VASCULAR DISEASE, UNSPECIFIED (12) Systolic dysfunction with acute on chronic heart failure Code(s): I50.23 - ACUTE ON CHRONIC SYSTOLIC (CONGESTIVE) HEART FAILURE (13) Weakness Code(s): R53.1 - WEAKNESS Assessment/Plan 1. Gross hematuria, dysuria, suspected cystitis 2. 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 Chronic systolic/diastolic failure with bilateral effusion 4. UTI 5. CAD post CABG, angina pectoris 6. HTN 7. NIDDM 8. Hypercholesterolemia 9. 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 Carotid stenosis 11. Hypothyroidism 12. PAD post [employer] and amputation (TMA) 13. Macrocytic anemia 14. Thrombocytopenia 15. Sacral decubiti ulcer 16. Hypernatremia 17. Moderate right pleural effusion PLAN: 1. Labs: CBC, BMP; Pulmpnary consult 2.Transfuse as needed. Monitor renal function and electrolytes 3. Demadex PO and monitor renal recovery and electrolytes 4. Restart ASA 81 mg QD pending hemostasis. Continue Carvedilol 3.125 mg BID. Currently on Rosuvastatin 10 mg QHS. Not on ARB 5. CXR noted with pleural effusion. Agree with Renal input regarding possible diagnostic thoracentesis if agreeable and after pulmonary consult
[2020-01-20] MEDS: MULTIVITAMINS THER W-MINERALS COMBO TABLET (FP) PO SCH ×2 (10:11→10:31)
[2020-01-20] MEDS: FAMOTIDINE 20 MG TABLET PO SCH ×2 (10:11→10:31)
[2020-01-20] MEDS: FOLIC ACID 1 MG TABLET (FP) PO SCH ×2 (10:11→10:31)
[2020-01-20] MEDS: BACITRACIN 15 GM TUBE TOPICAL OINTMENT TP SCH (10:11)
[2020-01-20] MEDS: AMOXICILLIN 500 MG CAPSULE (FP) PO SCH ×3 (10:11→21:35)
[2020-01-20] MEDS: CARVEDILOL 3.125 MG TABLET (FP) PO SCH ×3 (10:11→21:37)
[2020-01-20] MEDS: CHOLECALCIFEROL (VIT D3) 1,000 UNIT (25 MCG) TABLET PO SCH ×2 (10:11→10:32)
[2020-01-20] MEDS: FINASTERIDE 5 MG TABLET (FP) PO SCH ×2 (10:11→10:31)
[2020-01-20] MEDS: ASCORBIC ACID 500 MG TABLET (FP) PO SCH (10:11)
[2020-01-20] MEDS: ACETAMINOPHEN 325 MG TABLET (FP) PO PRN (10:12)
[2020-01-20] MEDS: TORSEMIDE 20 MG TABLET (FP) PO SCH ×2 (10:15→10:31)
[2020-01-20] MEDS: FUROSEMIDE 40 MG/4 ML INJECTABLE VIAL IVPUSH SCH ×2 (11:33→21:37)
--- NOTE | 2020-01-20 11:45 | PN ---
Progress Note, Physician Chief Complaint: decreased po intake; consults appreciated and d/w - Current Medication List Current Medications: Active Medications Acetaminophen (Tylenol -) 650 mg PO Q6H PRN PRN Reason: PAIN SCALE 1-6 Alprazolam (Xanax -) 0.25 mg PO HS PRN PRN Reason: ANXIETY Amoxicillin (Amoxicillin -) 500 mg PO BID [facility] Last Admin: 01/20/20 10:30 Dose: Not Given Documented by: Ascorbic Acid (Vitamin C -) 500 mg PO DAILY [facility] Last Admin: 01/20/20 10:11 Dose: 500 mg Documented by: Bacitracin (Bacitracin -) 1 applic TP DAILY [facility] Last Admin: 01/20/20 10:11 Dose: 1 applic Documented by: Carvedilol (Coreg -) 3.125 mg PO BID [facility] Last Admin: 01/20/20 10:31 Dose: Not Given Documented by: Cholecalciferol (Vitamin D3 -) 1,000 unit PO DAILY [facility] Last Admin: 01/20/20 10:32 Dose: Not Given Documented by: Famotidine (Pepcid -) 20 mg PO DAILY [facility] Last Admin: 01/20/20 10:31 Dose: Not Given Documented by: Fentanyl (Sublimaze Injection -) 25 mcg IVPUSH [id number] PRN PRN Reason: PAIN-PACU ORDER X 4 DOSES ONLY Finasteride (Proscar -) 5 mg PO DAILY [facility] Last Admin: 01/20/20 10:31 Dose: Not Given Documented by: Folic Acid (Folic Acid -) 1 mg PO DAILY [facility] Last Admin: 01/20/20 10:31 Dose: Not Given Documented by: Furosemide (Lasix Injection -) 40 mg IVPUSH BID [facility] Last Admin: 01/20/20 11:33 Dose: 40 mg Documented by: Levothyroxine Sodium (Synthroid -) 75 mcg PO DAILY@0700 [facility] Last Admin: 01/20/20 06:00 Dose: 75 mcg Documented by: Lidocaine (Lidoderm Patch -) 1 patch TP DAILY@1630 PRN PRN Reason: PAIN Miscellaneous (Lidoderm Patch Removal) 1 each MC DAILY@0430 [facility] Last Admin: 01/20/20 05:03 Dose: 1 each Documented by: Multivitamins/Minerals (Theragran-M) 1 each PO DAILY [facility] Last Admin: 01/20/20 10:31 Dose: Not Given Documented by: Polyethylene Glycol (Miralax (For Daily Use) -) 17 gm PO BID PRN PRN Reason: CONSTIPATION Pregabalin (Lyrica -) 50 mg PO [facility] Last Admin: 01/19/20 21:28 Dose: 50 mg Documented by: Rosuvastatin Calcium (Crestor -) 10 mg PO [facility] Last Admin: 01/19/20 21:29 Dose: 10 mg Documented by: Tamsulosin HCl (Flomax -) 0.4 mg PO [facility] Last Admin: 01/19/20 21:29 Dose: 0.4 mg Documented by: Zinc Oxide (Desitin Diaper Rash Oint -) 1 applic TP ASDIR PRN PRN Reason: HYGEINE - Objective Vital Signs: Vital Signs Temperature 98.1 F 01/20/20 06:45 Pulse Rate 89 01/20/20 06:45 Respiratory Rate 20 01/20/20 06:45 Blood Pressure 102/54 L 01/20/20 06:45 O2 Sat by Pulse Oximetry (%) 98 01/19/20 21:00 Constitutional: Yes: Calm Eyes: Yes: Conjunctiva Clear HENT: Yes: Atraumatic Neck: Yes: Supple Cardiovascular: Yes: Regular Rate and Rhythm Respiratory: Yes: Diminished Gastrointestinal: Yes: Soft Genitourinary: No: Hematuria Extremities: No: Cold, Cool Edema: No Integumentary: Yes: Bruising (arms). No: Rash Neurological: Yes: Alert. No: Oriented Psychiatric: Yes: Alert. No: Oriented, Agitated Labs: CBC, BMP 01/18/20 08:30 01/18/20 08:30 INR, PTT INR 1.26 (0.83-1.09) H 01/13/20 01:24 - ....Imaging Other: Report Reviewed Assessment/Plan 89 yo M history CHF s/p AICD, CAD s/p stents, HTN, HL, CKD, BPH, hypothyroid admitted with hematuria, dysuria and passing clots; UCx enteroccocus; s/p Cys toscopy hematuria stopped combative, agitated, O2 desatmn- IV lasix sepsis UTI - toxic metabolic encephalopathy - ID f/u renal and cardio f/u; CXR; labs; pulm eval po ATB per ID; DVT pfx - can not use sq heparin due to bleeding decubs PFX turn q1 hour; wounds care; protein malnutrition - add po AA
[2020-01-20 12:55] VITALS: BMI 19.3
--- NOTE | 2020-01-20 13:04 | CON.PULM ---
Consult Consult Specialty:: PULM/CCM Referred by:: Hospitalist Reason for Consultation:: Abnormal ABG & CXR - History of Present Illness Chief Complaint: SOB History of Present Illness: 89 M, CKD stage 4 (baseline Cr 1.7-2.2), CAD s/p CABG, BPH, CHF with LV dysfunction, and carotid stenosis. Admitted via the ER due to dysuria and gross hematuria. Called due to the abnormal ABG and CXR. RR called due to hypoxemia and ABG. Patient is currently agitated and not able to provide history. CXR: bilateral CHF pattern / pleural effusion - History Source History Provided By: Medical Record Limitations to Obtaining History: Clinical Condition - Past Medical History Cardio/Vascular: Yes: CAD (CABG), HTN, Mitral Insufficiency, Other (ICD for induced ventricular tachycardia) Pulmonary: Yes: Asthma, Bronchitis, COPD, O2 Dependent, Pneumonia Gastrointestinal: Yes: Hiatal Hernia, Other (C diff colitis, hyper[plastic sigmoid polyps, right ischemic colitis 2012) Hepatobiliary: Yes: Cholelithiasis (s/p lap choly) Renal/: Yes: Renal Failure (had ARF last month in September creat bumped to 2), BPH (s/p TURP), Renal Calculi Infectious Disease: Yes: C-Diff Psych: Yes: Anxiety, Panic Musculoskeletal: Yes: Other (L foot wound s/p transmetatarsal amputation 2013) Endocrine: Yes: Diabetes Mellitus, Other (diabetic neuropathy) - Past Surgical History Past Surgical History: Yes: AICD, Amputation (TMA left foot 2013), CABG, Cholecystectomy (laparoscopic 2013), Colonoscopy, TURP, Upper Endoscopy - Alcohol/Substance Use Hx Alcohol Use: No History of Substance Use: reports: None - Smoking History Smoking history: Unknown if ever smoked Have you smoked in the past 12 months: No Aproximately how many cigarettes per day: 20 If you are a former smoker, when did you quit?: 2009 - Social History Usual Living Arrangement: With Spouse ADL: Family Assistance Occupation: retired [employer] History of Recent Travel: No Home Medications - Allergies Allergies/Adverse Reactions: Allergies Allergy/AdvReac Type Severity Reaction Status Date / Time sulfamethazine Allergy Verified 01/13/20 07:27 trimethoprim Allergy Verified 01/13/20 07:27 - Home Medications Home Medications: Ambulatory Orders Ascorbate Calcium [Vitamin C] 500 mg PO DAILY 01/20/14 Aspirin [ASA -] 81 mg PO DAILY 01/20/14 Carvedilol 3.125 mg PO BID 01/20/14 Folic Acid - 1 mg PO DAILY 01/20/14 Pregabalin [Lyrica -] 50 mg PO HS 01/20/14 Tamsulosin HCl [Flomax -] 0.4 mg PO HS 01/20/14 Levothyroxine [Synthroid -] 75 mcg PO DAILY 07/21/16 Ergocalciferol (Vitamin D2) [Vitamin D2] 2,000 unit PO DAILY 06/09/17 Insulin Glargine,Hum.rec.anlog [Lantus (10mL VIAL) -] 10 units SQ HS 06/09/17 Multivit-Min/FA/Lycopen/Lutein [Centrum Silver Tablet] 1 tab PO DAILY 06/09/17 Rosuvastatin Calcium 10 mg PO HS 06/09/17 Finasteride [Proscar -] 5 mg PO DAILY tablet 01/13/19 Famotidine [Pepcid] 1 tab PO DAILY 08/07/19 Acetaminophen [Tylenol .Regular Strength -] 650 mg PO Q6H PRN tablet 01/01/20 Bacitracin - [Bacitracin Topical Ointment -] 1 applic TP DAILY tube 01/01/20 Furosemide [Lasix -] 40 mg PO BID #180 tab 01/01/20 Polyethylene Glycol 3350 [Miralax 119 gm Btl -] 17 gm PO BID bottle 01/01/20 Review of Systems Unable to obtain ROS, reason: not able provide Physical Exam Vital Sings: Vital Signs Temperature 98.1 F 01/20/20 06:45 Pulse Rate 89 01/20/20 06:45 Respiratory Rate 20 01/20/20 06:45 Blood Pressure 102/54 L 01/20/20 06:45 O2 Sat by Pulse Oximetry (%) 94 L 01/20/20 10:00 Constitutional: Yes: Moderate Distress, Other (agitated ) Eyes: Yes: Conjunctiva Clear, EOM Intact HENT: Yes: Atraumatic, Normocephalic Neck: Yes: Supple, Trachea Midline Cardiovascular: Yes: Tachycardia Respiratory: Yes: Accessory Muscle Use, Cough, Diminished, On Venti-Mask, Rales, Rhonchi, Tachypnea. No: Stridor, Wheezes ...Inspection: Yes: WNL ...Clubbing: No Gastrointestinal: Yes: Normal Bowel Sounds, Soft Breast(s): Yes: WNL Musculoskeletal: Yes: WNL Extremities: Yes: WNL Edema: Yes Peripheral Pulses WNL: Yes Integumentary: Yes: WNL Neurological: Yes: Other (agitated ) Labs: CBC, BMP 01/18/20 08:30 01/18/20 08:30 ABG Results ABG pH 7.304 (7.350-7.450) L 01/20/20 06:35 ABG HCO3 22.0 mmol/L (22-27) 01/20/20 06:35 ABG O2 Sat (Measured) 66.5 mmHg (95-98) L 01/20/20 06:35 ABG O2 Content No Result Required. 01/20/20 06:35 ABG Base Excess -4.2 mmol/L (-2-2) L 01/20/20 06:35 Imaging - Results Chest X-ray: Report Reviewed, Image Reviewed Problem List - Problems (1) CKD (chronic kidney disease) Code(s): N18.9 - CHRONIC KIDNEY DISEASE, UNSPECIFIED Qualifiers: Chronic kidney disease stage: unspecified stage Qualified Code(s): N18.9 - Chronic kidney disease, unspecified (2) Hematuria Code(s): R31.9 - HEMATURIA, UNSPECIFIED Qualifiers: Hematuria type: gross Qualified Code(s): R31.0 - Gross hematuria (3) ASHLYN (acute kidney injury) Code(s): N17.9 - ACUTE KIDNEY FAILURE, UNSPECIFIED (4) ASHD (arteriosclerotic heart disease) Code(s): I25.10 - ATHSCL HEART DISEASE OF [place] CORONARY ARTERY W/O ANG PCTRS (5) Anemia Code(s): D64.9 - ANEMIA, UNSPECIFIED Qualifiers: Anemia type: unspecified type Qualified Code(s): D64.9 - Anemia, unspecified (6) Anxiety Code(s): F41.9 - ANXIETY DISORDER, UNSPECIFIED (7) BPH (benign prostatic hyperplasia) Code(s): N40.0 - BENIGN PROSTATIC HYPERPLASIA WITHOUT LOWER URINRY TRACT SYMP (8) Bilateral leg edema Code(s): R60.0 - LOCALIZED EDEMA (9) CAD (coronary artery disease) Code(s): I25.10 - ATHSCL HEART DISEASE OF [place] CORONARY ARTERY W/O ANG PCTRS Qualifiers: Coronary Disease-Associated Artery/Lesion type: [place] artery [place] vs. transplanted heart: [place] heart Associated angina: without angina Qualified Code(s): I25.10 - Atherosclerotic heart disease of [place] coronary artery without angina pectoris (10) CHF (congestive heart failure) Code(s): I50.9 - HEART FAILURE, UNSPECIFIED (11) CHF exacerbation Code(s): I50.9 - HEART FAILURE, UNSPECIFIED (12) COPD (chronic obstructive pulmonary disease) Code(s): J44.9 - CHRONIC OBSTRUCTIVE PULMONARY DISEASE, UNSPECIFIED Qualifiers: COPD type: unspecified COPD Qualified Code(s): J44.9 - Chronic obstructive pulmonary disease, unspecified (13) Carotid artery disease Code(s): I77.9 - DISORDER OF ARTERIES AND ARTERIOLES, UNSPECIFIED (14) Chronic renal failure Code(s): N18.9 - CHRONIC KIDNEY DISEASE, UNSPECIFIED (15) Chronic systolic heart failure Code(s): I50.22 - CHRONIC SYSTOLIC (CONGESTIVE) HEART FAILURE (16) Cough Code(s): R05 - COUGH (17) Diabetes mellitus Code(s): E11.9 - TYPE 2 DIABETES MELLITUS WITHOUT COMPLICATIONS (18) Dyspnea Code(s): R06.00 - DYSPNEA, UNSPECIFIED Qualifiers: (19) [place] (hard of hearing) Code(s): H91.90 - UNSPECIFIED HEARING LOSS, UNSPECIFIED EAR (20) HTN (hypertension) Code(s): I10 - ESSENTIAL (PRIMARY) HYPERTENSION Qualifiers: (21) History of ischemic colitis Code(s): Z87.19 - PERSONAL HISTORY OF OTHER DISEASES OF THE DIGESTIVE SYSTEM (22) Hx of BKA Code(s): Z89.519 - ACQUIRED ABSENCE OF UNSPECIFIED LEG BELOW KNEE (23) Hx of CABG Code(s): Z95.1 - PRESENCE OF AORTOCORONARY BYPASS GRAFT (24) Hypercholesterolemia Code(s): E78.0 - PURE HYPERCHOLESTEROLEMIA * DO NOT USE * (25) Hypoalbuminemia Code(s): E88.09 - OTH DISORDERS OF PLASMA-PROTEIN METABOLISM, NEC (26) Hypothyroidism Code(s): E03.9 - HYPOTHYROIDISM, UNSPECIFIED Qualifiers: Hypothyroidism type: unspecified Qualified Code(s): E03.9 - Hypothyroidism, unspecified (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 Code(s): Z95.810 - PRESENCE OF AUTOMATIC (IMPLANTABLE) CARDIAC DEFIBRILLATOR (28) PVD (peripheral vascular disease) Code(s): I73.9 - PERIPHERAL VASCULAR DISEASE, UNSPECIFIED (29) Peripheral arterial disease Code(s): I73.9 - PERIPHERAL VASCULAR DISEASE, UNSPECIFIED (30) Pleural effusion Code(s): J90 - PLEURAL EFFUSION, NOT ELSEWHERE CLASSIFIED (31) Urinary retention Code(s): R33.9 - RETENTION OF URINE, UNSPECIFIED Assessment/Plan D/W Renal : IV Lasix 40mg BID VM O2 to maintain saturation Aspiration precautions Would not perform thoracentesis now, high risk for PTX given current agitation and have room for diuresis Follow CXR Will follow Thank you. Dr Diggs
--- NOTE | 2020-01-20 13:35 | PN ---
Progress Note, Physician Chief Complaint: Hematuria History of Present Illness: Seen and examined at the bedside awake but confused not talking noted to have more congestion on CXR - Current Medication List Current Medications: Active Medications Acetaminophen (Tylenol -) 650 mg PO Q6H PRN PRN Reason: PAIN SCALE 1-6 Alprazolam (Xanax -) 0.25 mg PO HS PRN PRN Reason: ANXIETY Amino Acids (Prosource No Carb Liquid Pkt) 30 ml PO BID@0800,1730 [facility] Amoxicillin (Amoxicillin -) 500 mg PO BID [facility] Last Admin: 01/20/20 10:30 Dose: Not Given Documented by: Ascorbic Acid (Vitamin C -) 500 mg PO DAILY [facility] Last Admin: 01/20/20 10:11 Dose: 500 mg Documented by: Bacitracin (Bacitracin -) 1 applic TP DAILY [facility] Last Admin: 01/20/20 10:11 Dose: 1 applic Documented by: Carvedilol (Coreg -) 3.125 mg PO BID [facility] Last Admin: 01/20/20 10:31 Dose: Not Given Documented by: Cholecalciferol (Vitamin D3 -) 1,000 unit PO DAILY [facility] Last Admin: 01/20/20 10:32 Dose: Not Given Documented by: Famotidine (Pepcid -) 20 mg PO DAILY [facility] Last Admin: 01/20/20 10:31 Dose: Not Given Documented by: Fentanyl (Sublimaze Injection -) 25 mcg IVPUSH [id number] PRN PRN Reason: PAIN-PACU ORDER X 4 DOSES ONLY Finasteride (Proscar -) 5 mg PO DAILY [facility] Last Admin: 01/20/20 10:31 Dose: Not Given Documented by: Folic Acid (Folic Acid -) 1 mg PO DAILY [facility] Last Admin: 01/20/20 10:31 Dose: Not Given Documented by: Furosemide (Lasix Injection -) 40 mg IVPUSH BID [facility] Last Admin: 01/20/20 11:33 Dose: 40 mg Documented by: Levothyroxine Sodium (Synthroid -) 75 mcg PO DAILY@0700 [facility] Last Admin: 01/20/20 06:00 Dose: 75 mcg Documented by: Lidocaine (Lidoderm Patch -) 1 patch TP DAILY@1630 PRN PRN Reason: PAIN Miscellaneous (Lidoderm Patch Removal) 1 each MC DAILY@0430 [facility] Last Admin: 01/20/20 05:03 Dose: 1 each Documented by: Multivitamins/Minerals (Theragran-M) 1 each PO DAILY [facility] Last Admin: 01/20/20 10:31 Dose: Not Given Documented by: Polyethylene Glycol (Miralax (For Daily Use) -) 17 gm PO BID PRN PRN Reason: CONSTIPATION Pregabalin (Lyrica -) 50 mg PO [facility] Last Admin: 01/19/20 21:28 Dose: 50 mg Documented by: Rosuvastatin Calcium (Crestor -) 10 mg PO [facility] Last Admin: 01/19/20 21:29 Dose: 10 mg Documented by: Tamsulosin HCl (Flomax -) 0.4 mg PO [facility] Last Admin: 01/19/20 21:29 Dose: 0.4 mg Documented by: Zinc Oxide (Desitin Diaper Rash Oint -) 1 applic TP ASDIR PRN PRN Reason: HYGEINE - Objective Vital Signs: Vital Signs Temperature 98.1 F 01/20/20 06:45 Pulse Rate 89 01/20/20 06:45 Respiratory Rate 20 01/20/20 06:45 Blood Pressure 102/54 L 01/20/20 06:45 O2 Sat by Pulse Oximetry (%) 94 L 01/20/20 10:00 Constitutional: Yes: No Distress Neck: Yes: Supple Respiratory: Yes: Diminished Gastrointestinal: Yes: Soft Extremities: No: Cyanosis Edema: No Neurological: Yes: Alert Labs: CBC, BMP 01/18/20 08:30 01/18/20 08:30 INR, PTT INR 1.26 (0.83-1.09) H 01/13/20 01:24 Assessment/Plan 89 year old male with history of CKD stage 4 (baseline Cr 1.7-2.2), CAD s/p CABG, BPH, CHF 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 1. CKD stage 4 2. Dysuria/Suspected cystitis 3. CAD s/p CABG 4. 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 Acute on chronic anemia No labs recorded for today, will order stat BMP Agree with IV lasix BID for management of worsening cheat congestion Check ammonia levels given confusion Trend renal function and electrolytes daily Trend H/H Oscar Madrid DO
[2020-01-20 15:22] LABS: ARTERIAL BLD GAS O2 SATURATION 98.8 mmHg (95-98); ARTERIAL BLOOD GAS BASE EXCESS -4.1 mmol/L (-2-2); ARTERIAL BLOOD GAS PO2 142.9 mmHg (80-100); ARTERIAL BLOOD GAS pH 7.371 (7.350-7.450)
[2020-01-20 15:48] LABS: BASO % 0.5 % (0-2.0); EOS % 1.7 % (0-4.5); HEMATOCRIT 29.9 % (35.4-49); HEMOGLOBIN 9.7 GM/dL (11.7-16.9); LYMPH % 3.5 % (8-40); MCH 31.1 pg (25.7-33.7); MCHC 32.6 g/dl (32.0-35.9); MEAN CELL VOLUME 95.1 fl (80-96); MEAN PLT VOLUME 9.3 fl (7.5-11.1); MONO % 9.2 % (3.8-10.2); NEUT % 85.1 % (42.8-82.8); PLATELET COUNT 98 K/MM3 (134-434); RBC 3.14 M/mm3 (4.00-5.60); RDW 18.1 % (11.9-15.9); WHITE BLOOD COUNT 6.2 K/mm3 (4.0-10.0)
[2020-01-20 16:22] LABS: BLOOD UREA NITROGEN 78.4 mg/dL (7-18); POTASSIUM 3.9 mmol/L (3.5-5.1)
[2020-01-20 16:25] LABS: ALBUMIN 2.2 g/dl (3.4-5.0); BILIRUBIN,TOTAL 0.5 mg/dL (0.2-1); BLOOD UREA NITROGEN 78.5 mg/dL (7-18); CALCIUM 8.3 mg/dL (8.5-10.1); TOT PROT 6.3 g/dl (6.4-8.2)
[2020-01-20] MEDS: AMINO ACIDS/PROTEIN HYDROLYS 30 ML LIQUID.PKT PO SCH (16:57)
[2020-01-20] MEDS ORDERED: PT OWN MED DRAWER 7, Y5N ONE (21:20)
[2020-01-20] MEDS: PREGABALIN 50 MG CAPSULE PO SCH (21:35)
[2020-01-20] MEDS: TAMSULOSIN HCL 0.4 MG CAP PO SCH (21:35)
[2020-01-20] MEDS: ROSUVASTATIN CA 10 MG TABLET (FP) PO SCH (21:36)
[2020-01-21] MEDS: LIDOCAINE PATCH REMOVAL MC SCH (05:05)
[2020-01-21] MEDS: LEVOTHYROXINE NA 75 MCG TABLET (FP) PO SCH (06:02)
--- NOTE | 2020-01-21 07:58 | PN ---
Progress Note, Physician Chief Complaint: labs noted; IV lasix ARF / CRF \ afebrile; decreased po intake - Current Medication List Current Medications: Active Medications Acetaminophen (Tylenol -) 650 mg PO Q6H PRN PRN Reason: PAIN SCALE 1-6 Alprazolam (Xanax -) 0.25 mg PO HS PRN PRN Reason: ANXIETY Amino Acids (Prosource No Carb Liquid Pkt) 30 ml PO BID@0800,1730 [facility] Last Admin: 01/20/20 16:57 Dose: 30 ml Documented by: Amoxicillin (Amoxicillin -) 500 mg PO BID [facility] Last Admin: 01/20/20 21:35 Dose: 500 mg Documented by: Ascorbic Acid (Vitamin C -) 500 mg PO DAILY [facility] Last Admin: 01/20/20 10:11 Dose: 500 mg Documented by: Bacitracin (Bacitracin -) 1 applic TP DAILY [facility] Last Admin: 01/20/20 10:11 Dose: 1 applic Documented by: Carvedilol (Coreg -) 3.125 mg PO BID [facility] Last Admin: 01/20/20 21:37 Dose: Not Given Documented by: Cholecalciferol (Vitamin D3 -) 1,000 unit PO DAILY [facility] Last Admin: 01/20/20 10:32 Dose: Not Given Documented by: Famotidine (Pepcid -) 20 mg PO DAILY [facility] Last Admin: 01/20/20 10:31 Dose: Not Given Documented by: Fentanyl (Sublimaze Injection -) 25 mcg IVPUSH [id number] PRN PRN Reason: PAIN-PACU ORDER X 4 DOSES ONLY Finasteride (Proscar -) 5 mg PO DAILY [facility] Last Admin: 01/20/20 10:31 Dose: Not Given Documented by: Folic Acid (Folic Acid -) 1 mg PO DAILY [facility] Last Admin: 01/20/20 10:31 Dose: Not Given Documented by: Furosemide (Lasix Injection -) 40 mg IVPUSH BID [facility] Last Admin: 01/20/20 21:37 Dose: 40 mg Documented by: Levothyroxine Sodium (Synthroid -) 75 mcg PO DAILY@0700 [facility] Last Admin: 01/21/20 06:02 Dose: 75 mcg Documented by: Lidocaine (Lidoderm Patch -) 1 patch TP DAILY@1630 PRN PRN Reason: PAIN Miscellaneous (Lidoderm Patch Removal) 1 each MC DAILY@0430 [facility] Last Admin: 01/21/20 05:05 Dose: 1 each Documented by: Multivitamins/Minerals (Theragran-M) 1 each PO DAILY [facility] Last Admin: 01/20/20 10:31 Dose: Not Given Documented by: Polyethylene Glycol (Miralax (For Daily Use) -) 17 gm PO BID PRN PRN Reason: CONSTIPATION Pregabalin (Lyrica -) 50 mg PO [facility] Last Admin: 01/20/20 21:35 Dose: 50 mg Documented by: Rosuvastatin Calcium (Crestor -) 10 mg PO [facility] Last Admin: 01/20/20 21:36 Dose: 10 mg Documented by: Tamsulosin HCl (Flomax -) 0.4 mg PO [facility] Last Admin: 01/20/20 21:35 Dose: 0.4 mg Documented by: Zinc Oxide (Desitin Diaper Rash Oint -) 1 applic TP ASDIR PRN PRN Reason: HYGEINE - Objective Vital Signs: Vital Signs Temperature 97.9 F 01/21/20 06:00 Pulse Rate 76 01/21/20 06:00 Respiratory Rate 20 01/21/20 06:00 Blood Pressure 100/48 L 01/21/20 06:00 O2 Sat by Pulse Oximetry (%) 94 L 01/20/20 21:00 Constitutional: Yes: Calm Eyes: Yes: Conjunctiva Clear HENT: Yes: Atraumatic Neck: Yes: Supple Cardiovascular: Yes: Regular Rate and Rhythm Respiratory: Yes: Diminished Gastrointestinal: Yes: Soft Genitourinary: No: Hematuria Musculoskeletal: No: Joint Swelling Extremities: No: Cold, Cool Edema: No Integumentary: Yes: Bruising. No: Rash Neurological: Yes: Alert Psychiatric: Yes: Alert. No: Agitated Labs: CBC, BMP 01/20/20 15:29 01/20/20 15:29 INR, PTT INR 1.26 (0.83-1.09) H 01/13/20 01:24 - ....Imaging Other: Report Reviewed Assessment/Plan 89 yo M history CHF s/p AICD, CAD s/p stents, HTN, HL, CKD, BPH, hypothyroid admitted with hematuria, dysuria and passing clots; UCx enteroccocus; s/p Cystoscopy hematuria stopped combative, agitated, O2 desat-ing better with IV lasix sepsis UTI - toxic metabolic encephalopathy - ID f/u renal and cardio f/u; CXR; labs; pulm f/u palliative care eval po ATB per ID; DVT pfx - can not use sq heparin due to bleeding decubs PFX turn q1 hour; wounds care; protein malnutrition - add po AA
[2020-01-21 09:51] LABS: HEMOGLOBIN 9.5 GM/dL (11.7-16.9); MCH 31.3 pg (25.7-33.7); MCHC 32.9 g/dl (32.0-35.9); MEAN CELL VOLUME 95.1 fl (80-96); MEAN PLT VOLUME 8.6 fl (7.5-11.1); PLATELET COUNT 109 K/MM3 (134-434); RBC 3.05 M/mm3 (4.00-5.60); RDW 17.8 % (11.9-15.9); WHITE BLOOD COUNT 5.8 K/mm3 (4.0-10.0)
[2020-01-21] MEDS: BACITRACIN 15 GM TUBE TOPICAL OINTMENT TP SCH (10:00)
[2020-01-21] MEDS: AMOXICILLIN 500 MG CAPSULE (FP) PO SCH ×2 (10:11→22:15)
[2020-01-21] MEDS: AMINO ACIDS/PROTEIN HYDROLYS 30 ML LIQUID.PKT PO SCH ×2 (10:11→17:17)
[2020-01-21] MEDS: CARVEDILOL 3.125 MG TABLET (FP) PO SCH ×2 (10:12→22:15)
[2020-01-21] MEDS: FAMOTIDINE 20 MG TABLET PO SCH (10:12)
[2020-01-21] MEDS: FOLIC ACID 1 MG TABLET (FP) PO SCH (10:12)
[2020-01-21] MEDS: ASCORBIC ACID 500 MG TABLET (FP) PO SCH (10:13)
[2020-01-21] MEDS: FINASTERIDE 5 MG TABLET (FP) PO SCH (10:13)
[2020-01-21] MEDS: MULTIVITAMINS THER W-MINERALS COMBO TABLET (FP) PO SCH (10:13)
[2020-01-21] MEDS: CHOLECALCIFEROL (VIT D3) 1,000 UNIT (25 MCG) TABLET PO SCH (10:13)
[2020-01-21 10:14] LABS: BLOOD UREA NITROGEN 78.8 mg/dL (7-18); CALCIUM 8.1 mg/dL (8.5-10.1); CREATININE 2.8 mg/dL (0.55-1.3); POTASSIUM 3.5 mmol/L (3.5-5.1)
[2020-01-21] MEDS: FUROSEMIDE 40 MG/4 ML INJECTABLE VIAL IVPUSH SCH ×2 (10:15→22:16)
--- NOTE | 2020-01-21 12:50 | PN ---
Progress Note (short form) - Note Progress Note: Lethargic but arousable. Less tachypneic today but remains mildly tachypneic at rest. No acute events overnight. Intake & Output 01/18/20 01/19/20 01/20/20 01/21/20 23:59 23:59 23:59 23:59 Intake Total 750 750 Output Total 4300 Balance -4300 750 750 Weight 133 lb 131 lb 135 lb 4.8 oz 136 lb Last Vital Signs Temp Pulse Resp BP Pulse Ox 97.9 F 76 20 100/48 L 94 L 01/21/20 06:00 01/21/20 06:00 01/21/20 06:00 01/21/20 06:00 01/21/20 09:00 Active Medications Acetaminophen (Tylenol -) 650 mg PO Q6H PRN PRN Reason: PAIN SCALE 1-6 Alprazolam (Xanax -) 0.25 mg PO HS PRN PRN Reason: ANXIETY Amino Acids (Prosource No Carb Liquid Pkt) 30 ml PO BID@0800,1730 [facility] Last Admin: 01/21/20 10:11 Dose: Not Given Documented by: Amoxicillin (Amoxicillin -) 500 mg PO BID [facility] Last Admin: 01/21/20 10:11 Dose: Not Given Documented by: Ascorbic Acid (Vitamin C -) 500 mg PO DAILY [facility] Last Admin: 01/21/20 10:13 Dose: Not Given Documented by: Bacitracin (Bacitracin -) 1 applic TP DAILY [facility] Last Admin: 01/20/20 10:11 Dose: 1 applic Documented by: Carvedilol (Coreg -) 3.125 mg PO BID [facility] Last Admin: 01/21/20 10:12 Dose: Not Given Documented by: Cholecalciferol (Vitamin D3 -) 1,000 unit PO DAILY [facility] Last Admin: 01/21/20 10:13 Dose: Not Given Documented by: Famotidine (Pepcid -) 20 mg PO DAILY [facility] Last Admin: 01/21/20 10:12 Dose: Not Given Documented by: Fentanyl (Sublimaze Injection -) 25 mcg IVPUSH [id number] PRN PRN Reason: PAIN-PACU ORDER X 4 DOSES ONLY Finasteride (Proscar -) 5 mg PO DAILY [facility] Last Admin: 01/21/20 10:13 Dose: Not Given Documented by: Folic Acid (Folic Acid -) 1 mg PO DAILY [facility] Last Admin: 01/21/20 10:12 Dose: Not Given Documented by: Furosemide (Lasix Injection -) 40 mg IVPUSH BID [facility] Last Admin: 01/21/20 10:15 Dose: 40 mg Documented by: Levothyroxine Sodium (Synthroid -) 75 mcg PO DAILY@0700 [facility] Last Admin: 01/21/20 06:02 Dose: 75 mcg Documented by: Lidocaine (Lidoderm Patch -) 1 patch TP DAILY@1630 PRN PRN Reason: PAIN Last Admin: 01/21/20 10:15 Dose: 1 patch Documented by: Miscellaneous (Lidoderm Patch Removal) 1 each MC DAILY@0430 [facility] Last Admin: 01/21/20 05:05 Dose: 1 each Documented by: Multivitamins/Minerals (Theragran-M) 1 each PO DAILY [facility] Last Admin: 01/21/20 10:13 Dose: Not Given Documented by: Polyethylene Glycol (Miralax (For Daily Use) -) 17 gm PO BID PRN PRN Reason: CONSTIPATION Pregabalin (Lyrica -) 50 mg PO HS [facility] Last Admin: 01/20/20 21:35 Dose: 50 mg Documented by: Rosuvastatin Calcium (Crestor -) 10 mg PO [facility] Last Admin: 01/20/20 21:36 Dose: 10 mg Documented by: Tamsulosin HCl (Flomax -) 0.4 mg PO [facility] Last Admin: 01/20/20 21:35 Dose: 0.4 mg Documented by: Zinc Oxide (Desitin Diaper Rash Oint -) 1 applic TP ASDIR PRN PRN Reason: HYGEINE Constitutional: Yes: Lethargic but arousable, less agitated, mildly tachypneic at rest Eyes: Yes: Conjunctiva Clear, EOM Intact HENT: Yes: Atraumatic, Normocephalic Neck: Yes: Supple, Trachea Midline Cardiovascular: Yes: Tachycardia Respiratory: Yes: Cough, Diminished, On Venti-Mask, Rales, Rhonchi, Tachypnea. No: Stridor, Wheezes ...Inspection: Yes: WNL ...Clubbing: No Gastrointestinal: Yes: Normal Bowel Sounds, Soft Breast(s): Yes: WNL Musculoskeletal: Yes: WNL Extremities: Yes: WNL Edema: Yes Peripheral Pulses WNL: Yes Integumentary: Yes: WNL Neurological: Yes: Other (agitated ) Labs: Laboratory Results - last 24 hr 01/16/20 01/20/20 01/20/20 11:44 15:10 15:29 WBC 6.2 RBC 3.14 L Hgb 9.7 L Hct 29.9 L MCV 95.1 MCH 31.1 MCHC 32.6 RDW 18.1 H Plt Count 98 L D MPV 9.3 Absolute Neuts (auto) 5.3 Neutrophils % 85.1 H Lymphocytes % 3.5 L D Monocytes % 9.2 Eosinophils % 1.7 Basophils % 0.5 Nucleated RBC % 0 Anticoagulation Therapy No Result Required. Puncture Site Right radial Patient Temperature No Result Required. ABG pH 7.371 ABG pCO2 36.50 ABG pO2 142.9 H ABG HCO3 20.7 L ABG O2 Sat (Measured) 98.8 H ABG O2 Content No Result Required. ABG Base Excess -4.1 L Anthony Test No Result Required. Patient On Oxygen Yes O2 Delivery Device V mask Oxygen Flow Rate 40 Vent Mode No Result Required. Vent Rate No Result Required. Mechanical Rate No Result Required. PEEP No Result Required. Pressure Support Vent No Result Required. Sodium Potassium Chloride Carbon Dioxide Anion Gap BUN Creatinine Est GFR (CKD-EPI)AfAm Est GFR (CKD-EPI)NonAf POC Glucometer Random Glucose Calcium Erythropoietin 23.8 H Total Bilirubin AST ALT Alkaline Phosphatase Ammonia Total Protein Albumin 01/20/20 01/20/20 01/20/20 15:29 15:29 15:29 WBC RBC Hgb Hct MCV MCH MCHC RDW Plt Count MPV Absolute Neuts (auto) Neutrophils % Lymphocytes % Monocytes % Eosinophils % Basophils % Nucleated RBC % Anticoagulation Therapy Puncture Site Patient Temperature ABG pH ABG pCO2 ABG pO2 ABG HCO3 ABG O2 Sat (Measured) ABG O2 Content ABG Base Excess Anthony Test Patient On Oxygen O2 Delivery Device Oxygen Flow Rate Vent Mode Vent Rate Mechanical Rate PEEP Pressure Support Vent Sodium 139 137 Potassium 4.0 3.9 Chloride 104 102 Carbon Dioxide 23 24 Anion Gap 12 11 BUN 78.5 H 78.4 H Creatinine 3.0 H 3.0 H Est GFR (CKD-EPI)AfAm 20.54 20.54 Est GFR (CKD-EPI)NonAf 17.73 17.73 POC Glucometer Random Glucose 175 H 170 H Calcium 8.3 L 8.0 L Erythropoietin Total Bilirubin 0.5 AST 37 ALT 44 Alkaline Phosphatase 86 Ammonia 16.30 Total Protein 6.3 L Albumin 2.2 L 01/20/20 01/21/20 01/21/20 21:43 05:34 09:35 WBC 5.8 RBC 3.05 L Hgb 9.5 L Hct 29.0 L MCV 95.1 MCH 31.3 MCHC 32.9 RDW 17.8 H Plt Count 109 L MPV 8.6 Absolute Neuts (auto) Neutrophils % Lymphocytes % Monocytes % Eosinophils % Basophils % Nucleated RBC % Anticoagulation Therapy Puncture Site Patient Temperature ABG pH ABG pCO2 ABG pO2 ABG HCO3 ABG O2 Sat (Measured) ABG O2 Content ABG Base Excess Anthony Test Patient On Oxygen O2 Delivery Device Oxygen Flow Rate Vent Mode Vent Rate Mechanical Rate PEEP Pressure Support Vent Sodium Potassium Chloride Carbon Dioxide Anion Gap BUN Creatinine Est GFR (CKD-EPI)AfAm Est GFR (CKD-EPI)NonAf POC Glucometer 140 123 Random Glucose Calcium Erythropoietin Total Bilirubin AST ALT Alkaline Phosphatase Ammonia Total Protein Albumin 01/21/20 01/21/20 09:35 11:39 WBC RBC Hgb Hct MCV MCH MCHC RDW Plt Count MPV Absolute Neuts (auto) Neutrophils % Lymphocytes % Monocytes % Eosinophils % Basophils % Nucleated RBC % Anticoagulation Therapy Puncture Site Patient Temperature ABG pH ABG pCO2 ABG pO2 ABG HCO3 ABG O2 Sat (Measured) ABG O2 Content ABG Base Excess Anthony Test Patient On Oxygen O2 Delivery Device Oxygen Flow Rate Vent Mode Vent Rate Mechanical Rate PEEP Pressure Support Vent Sodium 141 Potassium 3.5 Chloride 106 Carbon Dioxide 25 Anion Gap 11 BUN 78.8 H Creatinine 2.8 H Est GFR (CKD-EPI)AfAm 22.33 Est GFR (CKD-EPI)NonAf 19.27 POC Glucometer 153 Random Glucose 118 H Calcium 8.1 L Erythropoietin Total Bilirubin AST ALT Alkaline Phosphatase Ammonia Total Protein Albumin Imaging - Results Chest X-ray: Report Reviewed, Image Reviewed Problem List - Problems (1) CKD (chronic kidney disease) Code(s): N18.9 - CHRONIC KIDNEY DISEASE, UNSPECIFIED Qualifiers: Chronic kidney disease stage: unspecified stage Qualified Code(s): N18.9 - Chronic kidney disease, unspecified (2) Hematuria Code(s): R31.9 - HEMATURIA, UNSPECIFIED Qualifiers: Hematuria type: gross Qualified Code(s): R31.0 - Gross hematuria (3) ASHLYN (acute kidney injury) Code(s): N17.9 - ACUTE KIDNEY FAILURE, UNSPECIFIED (4) ASHD (arteriosclerotic heart disease) Code(s): I25.10 - ATHSCL HEART DISEASE OF [place] CORONARY ARTERY W/O ANG PCTRS (5) Anemia Code(s): D64.9 - ANEMIA, UNSPECIFIED Qualifiers: Anemia type: unspecified type Qualified Code(s): D64.9 - Anemia, unspecified (6) Anxiety Code(s): F41.9 - ANXIETY DISORDER, UNSPECIFIED (7) BPH (benign prostatic hyperplasia) Code(s): N40.0 - BENIGN PROSTATIC HYPERPLASIA WITHOUT LOWER URINRY TRACT SYMP (8) Bilateral leg edema Code(s): R60.0 - LOCALIZED EDEMA (9) CAD (coronary artery disease) Code(s): I25.10 - ATHSCL HEART DISEASE OF [place] CORONARY ARTERY W/O ANG PCTRS Qualifiers: Coronary Disease-Associated Artery/Lesion type: [place] artery [place] vs. transplanted heart: [place] heart Associated angina: without angina Qualified Code(s): I25.10 - Atherosclerotic heart disease of [place] coronary artery without angina pectoris (10) CHF (congestive heart failure) Code(s): I50.9 - HEART FAILURE, UNSPECIFIED (11) CHF exacerbation Code(s): I50.9 - HEART FAILURE, UNSPECIFIED (12) COPD (chronic obstructive pulmonary disease) Code(s): J44.9 - CHRONIC OBSTRUCTIVE PULMONARY DISEASE, UNSPECIFIED Qualifiers: COPD type: unspecified COPD Qualified Code(s): J44.9 - Chronic obstructive pulmonary disease, unspecified (13) Carotid artery disease Code(s): I77.9 - DISORDER OF ARTERIES AND ARTERIOLES, UNSPECIFIED (14) Chronic renal failure Code(s): N18.9 - CHRONIC KIDNEY DISEASE, UNSPECIFIED (15) Chronic systolic heart failure Code(s): I50.22 - CHRONIC SYSTOLIC (CONGESTIVE) HEART FAILURE (16) Cough Code(s): R05 - COUGH (17) Diabetes mellitus Code(s): E11.9 - TYPE 2 DIABETES MELLITUS WITHOUT COMPLICATIONS (18) Dyspnea Code(s): R06.00 - DYSPNEA, UNSPECIFIED Qualifiers: (19) RUBY (hard of hearing) Code(s): H91.90 - UNSPECIFIED HEARING LOSS, UNSPECIFIED EAR (20) HTN (hypertension) Code(s): I10 - ESSENTIAL (PRIMARY) HYPERTENSION Qualifiers: (21) History of ischemic colitis Code(s): Z87.19 - PERSONAL HISTORY OF OTHER DISEASES OF THE DIGESTIVE SYSTEM (22) Hx of BKA Code(s): Z89.519 - ACQUIRED ABSENCE OF UNSPECIFIED LEG BELOW KNEE (23) Hx of CABG Code(s): Z95.1 - PRESENCE OF AORTOCORONARY BYPASS GRAFT (24) Hypercholesterolemia Code(s): E78.0 - PURE HYPERCHOLESTEROLEMIA * DO NOT USE * (25) Hypoalbuminemia Code(s): E88.09 - OTH DISORDERS OF PLASMA-PROTEIN METABOLISM, NEC (26) Hypothyroidism Code(s): E03.9 - HYPOTHYROIDISM, UNSPECIFIED Qualifiers: Hypothyroidism type: unspecified Qualified Code(s): E03.9 - Hypothyroidism, unspecified (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 Code(s): Z95.810 - PRESENCE OF AUTOMATIC (IMPLANTABLE) CARDIAC DEFIBRILLATOR (28) PVD (peripheral vascular disease) Code(s): I73.9 - PERIPHERAL VASCULAR DISEASE, UNSPECIFIED (29) Peripheral arterial disease Code(s): I73.9 - PERIPHERAL VASCULAR DISEASE, UNSPECIFIED (30) Pleural effusion Code(s): J90 - PLEURAL EFFUSION, NOT ELSEWHERE CLASSIFIED (31) Urinary retention Code(s): R33.9 - RETENTION OF URINE, UNSPECIFIED Assessment/Plan IV Lasix 40mg BID VM O2 to maintain saturation Aspiration precautions Would not perform thoracentesis now, high risk for PTX given current agitation and have room for diuresis Follow CXR Dr Diggs Problem List - Problems (1) CKD (chronic kidney disease) Code(s): N18.9 - CHRONIC KIDNEY DISEASE, UNSPECIFIED Qualifiers: Chronic kidney disease stage: unspecified stage Qualified Code(s): N18.9 - Chronic kidney disease, unspecified (2) Hematuria Code(s): R31.9 - HEMATURIA, UNSPECIFIED Qualifiers: Hematuria type: gross Qualified Code(s): R31.0 - Gross hematuria (3) ASHLYN (acute kidney injury) Code(s): N17.9 - ACUTE KIDNEY FAILURE, UNSPECIFIED (4) ASHD (arteriosclerotic heart disease) Code(s): I25.10 - ATHSCL HEART DISEASE OF [place] CORONARY ARTERY W/O ANG PCTRS (5) Anemia Code(s): D64.9 - ANEMIA, UNSPECIFIED Qualifiers: Anemia type: unspecified type Qualified Code(s): D64.9 - Anemia, unspecified (6) Anxiety Code(s): F41.9 - ANXIETY DISORDER, UNSPECIFIED (7) BPH (benign prostatic hyperplasia) Code(s): N40.0 - BENIGN PROSTATIC HYPERPLASIA WITHOUT LOWER URINRY TRACT SYMP (8) Bilateral leg edema Code(s): R60.0 - LOCALIZED EDEMA (9) CAD (coronary artery disease) Code(s): I25.10 - ATHSCL HEART DISEASE OF [place] CORONARY ARTERY W/O ANG PCTRS Qualifiers: Coronary Disease-Associated Artery/Lesion type: [place] artery [place] vs. transplanted heart: [place] heart Associated angina: without angina Qualified Code(s): I25.10 - Atherosclerotic heart disease of [place] coronary artery without angina pectoris (10) CHF (congestive heart failure) Code(s): I50.9 - HEART FAILURE, UNSPECIFIED (11) CHF exacerbation Code(s): I50.9 - HEART FAILURE, UNSPECIFIED (12) COPD (chronic obstructive pulmonary disease) Code(s): J44.9 - CHRONIC OBSTRUCTIVE PULMONARY DISEASE, UNSPECIFIED Qualifiers: COPD type: unspecified COPD Qualified Code(s): J44.9 - Chronic obstructive pulmonary disease, unspecified (13) Carotid artery disease Code(s): I77.9 - DISORDER OF ARTERIES AND ARTERIOLES, UNSPECIFIED (14) Chronic renal failure Code(s): N18.9 - CHRONIC KIDNEY DISEASE, UNSPECIFIED (15) Chronic systolic heart failure Code(s): I50.22 - CHRONIC SYSTOLIC (CONGESTIVE) HEART FAILURE (16) Cough Code(s): R05 - COUGH (17) Diabetes mellitus Code(s): E11.9 - TYPE 2 DIABETES MELLITUS WITHOUT COMPLICATIONS (18) Dyspnea Code(s): R06.00 - DYSPNEA, UNSPECIFIED Qualifiers: (19) RUBY (hard of hearing) Code(s): H91.90 - UNSPECIFIED HEARING LOSS, UNSPECIFIED EAR (20) HTN (hypertension) Code(s): I10 - ESSENTIAL (PRIMARY) HYPERTENSION Qualifiers: (21) History of ischemic colitis Code(s): Z87.19 - PERSONAL HISTORY OF OTHER DISEASES OF THE DIGESTIVE SYSTEM (22) Hx of BKA Code(s): Z89.519 - ACQUIRED ABSENCE OF UNSPECIFIED LEG BELOW KNEE (23) Hx of CABG Code(s): Z95.1 - PRESENCE OF AORTOCORONARY BYPASS GRAFT (24) Hypercholesterolemia Code(s): E78.0 - PURE HYPERCHOLESTEROLEMIA * DO NOT USE * (25) Hypoalbuminemia Code(s): E88.09 - OTH DISORDERS OF PLASMA-PROTEIN METABOLISM, NEC (26) Hypothyroidism Code(s): E03.9 - HYPOTHYROIDISM, UNSPECIFIED Qualifiers: Hypothyroidism type: unspecified Qualified Code(s): E03.9 - Hypothyroidism, unspecified (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 Code(s): Z95.810 - PRESENCE OF AUTOMATIC (IMPLANTABLE) CARDIAC DEFIBRILLATOR (28) PVD (peripheral vascular disease) Code(s): I73.9 - PERIPHERAL VASCULAR DISEASE, UNSPECIFIED (29) Peripheral arterial disease Code(s): I73.9 - PERIPHERAL VASCULAR DISEASE, UNSPECIFIED (30) Pleural effusion Code(s): J90 - PLEURAL EFFUSION, NOT ELSEWHERE CLASSIFIED (31) Urinary retention Code(s): R33.9 - RETENTION OF URINE, UNSPECIFIED
--- NOTE | 2020-01-21 13:15 | PN ---
Physical Exam: SUBJECTIVE: Patient seen and examined. No acute evens overnight. Pt. somnolent in bed, arousal to tactile stimulation. OBJECTIVE: Vital Signs Period Temp Pulse Resp BP Sys/Blanca Pulse Ox Last 24 Hr 97.5 F-97.9 F 67-76 20-20 100-142/48-68 94-94 GENERAL: Somnolent, arousal to tactile stimulation CARDIAC: S1,S2, No murmurs, No gallops LUNGS: Clear to P&A ABDOMEN: Soft, Normal bowel sounds, No organomegaly EXTREMITIES: No significant edema SKIN: Upper extremity ecchymoses Laboratory Results - last 24 hr 01/16/20 01/20/20 01/20/20 11:44 15:10 15:29 WBC 6.2 RBC 3.14 L Hgb 9.7 L Hct 29.9 L MCV 95.1 MCH 31.1 MCHC 32.6 RDW 18.1 H Plt Count 98 L D MPV 9.3 Absolute Neuts (auto) 5.3 Neutrophils % 85.1 H Lymphocytes % 3.5 L D Monocytes % 9.2 Eosinophils % 1.7 Basophils % 0.5 Nucleated RBC % 0 Anticoagulation Therapy No Result Required. Puncture Site Right radial Patient Temperature No Result Required. ABG pH 7.371 ABG pCO2 36.50 ABG pO2 142.9 H ABG HCO3 20.7 L ABG O2 Sat (Measured) 98.8 H ABG O2 Content No Result Required. ABG Base Excess -4.1 L Anthony Test No Result Required. Patient On Oxygen Yes O2 Delivery Device V mask Oxygen Flow Rate 40 Vent Mode No Result Required. Vent Rate No Result Required. Mechanical Rate No Result Required. PEEP No Result Required. Pressure Support Vent No Result Required. Sodium Potassium Chloride Carbon Dioxide Anion Gap BUN Creatinine Est GFR (CKD-EPI)AfAm Est GFR (CKD-EPI)NonAf POC Glucometer Random Glucose Calcium Erythropoietin 23.8 H Total Bilirubin AST ALT Alkaline Phosphatase Ammonia Total Protein Albumin 01/20/20 01/20/20 01/20/20 15:29 15:29 15:29 WBC RBC Hgb Hct MCV MCH MCHC RDW Plt Count MPV Absolute Neuts (auto) Neutrophils % Lymphocytes % Monocytes % Eosinophils % Basophils % Nucleated RBC % Anticoagulation Therapy Puncture Site Patient Temperature ABG pH ABG pCO2 ABG pO2 ABG HCO3 ABG O2 Sat (Measured) ABG O2 Content ABG Base Excess Anthony Test Patient On Oxygen O2 Delivery Device Oxygen Flow Rate Vent Mode Vent Rate Mechanical Rate PEEP Pressure Support Vent Sodium 139 137 Potassium 4.0 3.9 Chloride 104 102 Carbon Dioxide 23 24 Anion Gap 12 11 BUN 78.5 H 78.4 H Creatinine 3.0 H 3.0 H Est GFR (CKD-EPI)AfAm 20.54 20.54 Est GFR (CKD-EPI)NonAf 17.73 17.73 POC Glucometer Random Glucose 175 H 170 H Calcium 8.3 L 8.0 L Erythropoietin Total Bilirubin 0.5 AST 37 ALT 44 Alkaline Phosphatase 86 Ammonia 16.30 Total Protein 6.3 L Albumin 2.2 L 01/20/20 01/21/20 01/21/20 21:43 05:34 09:35 WBC 5.8 RBC 3.05 L Hgb 9.5 L Hct 29.0 L MCV 95.1 MCH 31.3 MCHC 32.9 RDW 17.8 H Plt Count 109 L MPV 8.6 Absolute Neuts (auto) Neutrophils % Lymphocytes % Monocytes % Eosinophils % Basophils % Nucleated RBC % Anticoagulation Therapy Puncture Site Patient Temperature ABG pH ABG pCO2 ABG pO2 ABG HCO3 ABG O2 Sat (Measured) ABG O2 Content ABG Base Excess Anthony Test Patient On Oxygen O2 Delivery Device Oxygen Flow Rate Vent Mode Vent Rate Mechanical Rate PEEP Pressure Support Vent Sodium Potassium Chloride Carbon Dioxide Anion Gap BUN Creatinine Est GFR (CKD-EPI)AfAm Est GFR (CKD-EPI)NonAf POC Glucometer 140 123 Random Glucose Calcium Erythropoietin Total Bilirubin AST ALT Alkaline Phosphatase Ammonia Total Protein Albumin 01/21/20 01/21/20 09:35 11:39 WBC RBC Hgb Hct MCV MCH MCHC RDW Plt Count MPV Absolute Neuts (auto) Neutrophils % Lymphocytes % Monocytes % Eosinophils % Basophils % Nucleated RBC % Anticoagulation Therapy Puncture Site Patient Temperature ABG pH ABG pCO2 ABG pO2 ABG HCO3 ABG O2 Sat (Measured) ABG O2 Content ABG Base Excess Anthony Test Patient On Oxygen O2 Delivery Device Oxygen Flow Rate Vent Mode Vent Rate Mechanical Rate PEEP Pressure Support Vent Sodium 141 Potassium 3.5 Chloride 106 Carbon Dioxide 25 Anion Gap 11 BUN 78.8 H Creatinine 2.8 H Est GFR (CKD-EPI)AfAm 22.33 Est GFR (CKD-EPI)NonAf 19.27 POC Glucometer 153 Random Glucose 118 H Calcium 8.1 L Erythropoietin Total Bilirubin AST ALT Alkaline Phosphatase Ammonia Total Protein Albumin Active Medications Generic Name Dose Route Start Last Admin Trade Name Damiánq PRN Reason Stop Dose Admin Acetaminophen 650 mg 01/16/20 16:49 Tylenol - PO Q6H PRN PAIN SCALE 1-6 Alprazolam 0.25 mg 01/16/20 16:49 Xanax - PO HS PRN ANXIETY Amino Acids 30 ml 01/20/20 17:30 01/21/20 10:11 Prosource No Carb Liquid Pkt PO Not Given BID@0800,1730 [facility] Amoxicillin 500 mg 01/19/20 22:00 01/21/20 10:11 Amoxicillin - PO Not Given BID ABBEY Ascorbic Acid 500 mg 01/17/20 10:00 01/21/20 10:13 Vitamin C - PO Not Given DAILY [facility] Bacitracin 1 applic 01/17/20 10:00 01/20/20 10:11 Bacitracin - TP 1 applic DAILY ABBEY Administration Carvedilol 3.125 mg 01/16/20 22:00 01/21/20 10:12 Coreg - PO Not Given BID [facility] Cholecalciferol 1,000 unit 01/17/20 10:00 01/21/20 10:13 Vitamin D3 - PO Not Given DAILY [facility] Famotidine 20 mg 01/17/20 10:00 01/21/20 10:12 Pepcid - PO Not Given DAILY [facility] Fentanyl 25 mcg 01/16/20 16:49 Sublimaze Injection - IVPUSH [id number] PRN PAIN-PACU ORDER X 4 DOSES ONLY Finasteride 5 mg 01/17/20 10:00 01/21/20 10:13 Proscar - PO Not Given DAILY [facility] Folic Acid 1 mg 01/17/20 10:00 01/21/20 10:12 Folic Acid - PO Not Given DAILY [facility] Furosemide 40 mg 01/20/20 11:00 01/21/20 10:15 Lasix Injection - IVPUSH 40 mg BID ABBEY Administration Levothyroxine Sodium 75 mcg 01/17/20 07:00 01/21/20 06:02 Synthroid - PO 75 mcg DAILY@0700 ABBEY Administration Lidocaine 1 patch 01/16/20 16:49 01/21/20 10:15 Lidoderm Patch - TP 1 patch DAILY@1630 PRN Administration PAIN Miscellaneous 1 each 01/17/20 04:30 01/21/20 05:05 Lidoderm Patch Removal MC 1 each DAILY@0430 ABBEY Administration Multivitamins/Minerals 1 each 01/17/20 10:00 01/21/20 10:13 Theragran-M PO Not Given DAILY ABBE[facility] Polyethylene Glycol 17 gm 01/16/20 16:49 Miralax (For Daily Use) - PO BID PRN CONSTIPATION Pregabalin 50 mg 01/16/20 22:00 01/20/20 21:35 Lyrica - PO 50 mg HS ABBEY Administration Rosuvastatin Calcium 10 mg 01/16/20 22:00 01/20/20 21:36 Crestor - PO 10 mg HS ABBEY Administration Tamsulosin HCl 0.4 mg 01/16/20 22:00 01/20/20 21:35 Flomax - PO 0.4 mg HS ABBEY Administration Zinc Oxide 1 applic 01/16/20 16:49 Desitin Diaper Rash Oint - TP ASDIR PRN HYGEINE ASSESSMENT/PLAN: Pt. is an 89 y.o. M w/ PMHx. of CKD stage 4 (baseline Cr 1.7-2.2), CAD s/p CABG, BPH, CHF 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 #CKD stage 4 #Dysuria/Suspected cystitis #CAD s/p CABG #CHF with LV dysfunction #Acute on chronic anemia Anemia likely 2/2 to CKD Thrombocytopenia likely 2/2 Lyrica and CKD f/u surgical pathology s/p cystoscopy and fulguration of bleeders on 01/15 Visit type - Emergency Visit Emergency Visit: Yes ED Registration Date: 01/13/20 Care time: The patient presented to the Emergency Department on the above date and was hospitalized for further evaluation of their emergent condition. - New Patient This patient is new to me today: Yes Date on this admission: 01/22/20 - Critical Care Critical Care patient: No - Discharge Referral Referred to [facility] No ATTENDING PHYSICIAN STATEMENT I saw and evaluated the patient. I reviewed the resident's note and discussed the case with the resident. I agree with the resident's findings and plan as documented. SUBJECTIVE: OBJECTIVE: ASSESSMENT AND PLAN:
--- NOTE | 2020-01-21 13:35 | PN ---
Progress Note, Physician Chief Complaint: Events noted Demadex switched to IV Lasix yesterday for increased SOB Currently appears lethargic History of Present Illness: Patient was seen and examined. Arousable. Chart was reviewed (+) generalized weakness Lethargy - Current Medication List Current Medications: Active Medications Acetaminophen (Tylenol -) 650 mg PO Q6H PRN PRN Reason: PAIN SCALE 1-6 Alprazolam (Xanax -) 0.25 mg PO HS PRN PRN Reason: ANXIETY Amino Acids (Prosource No Carb Liquid Pkt) 30 ml PO BID@0800,1730 [facility] Last Admin: 01/21/20 10:11 Dose: Not Given Documented by: Amoxicillin (Amoxicillin -) 500 mg PO BID [facility] Last Admin: 01/21/20 10:11 Dose: Not Given Documented by: Ascorbic Acid (Vitamin C -) 500 mg PO DAILY [facility] Last Admin: 01/21/20 10:13 Dose: Not Given Documented by: Bacitracin (Bacitracin -) 1 applic TP DAILY [facility] Last Admin: 01/20/20 10:11 Dose: 1 applic Documented by: Carvedilol (Coreg -) 3.125 mg PO BID [facility] Last Admin: 01/21/20 10:12 Dose: Not Given Documented by: Cholecalciferol (Vitamin D3 -) 1,000 unit PO DAILY [facility] Last Admin: 01/21/20 10:13 Dose: Not Given Documented by: Famotidine (Pepcid -) 20 mg PO DAILY [facility] Last Admin: 01/21/20 10:12 Dose: Not Given Documented by: Fentanyl (Sublimaze Injection -) 25 mcg IVPUSH [id number] PRN PRN Reason: PAIN-PACU ORDER X 4 DOSES ONLY Finasteride (Proscar -) 5 mg PO DAILY [facility] Last Admin: 01/21/20 10:13 Dose: Not Given Documented by: Folic Acid (Folic Acid -) 1 mg PO DAILY [facility] Last Admin: 01/21/20 10:12 Dose: Not Given Documented by: Furosemide (Lasix Injection -) 40 mg IVPUSH BID [facility] Last Admin: 01/21/20 10:15 Dose: 40 mg Documented by: Levothyroxine Sodium (Synthroid -) 75 mcg PO DAILY@0700 [facility] Last Admin: 01/21/20 06:02 Dose: 75 mcg Documented by: Lidocaine (Lidoderm Patch -) 1 patch TP DAILY@1630 PRN PRN Reason: PAIN Last Admin: 01/21/20 10:15 Dose: 1 patch Documented by: Miscellaneous (Lidoderm Patch Removal) 1 each MC DAILY@0430 [facility] Last Admin: 01/21/20 05:05 Dose: 1 each Documented by: Multivitamins/Minerals (Theragran-M) 1 each PO DAILY [facility] Last Admin: 01/21/20 10:13 Dose: Not Given Documented by: Polyethylene Glycol (Miralax (For Daily Use) -) 17 gm PO BID PRN PRN Reason: CONSTIPATION Pregabalin (Lyrica -) 50 mg PO [facility] Last Admin: 01/20/20 21:35 Dose: 50 mg Documented by: Rosuvastatin Calcium (Crestor -) 10 mg PO [facility] Last Admin: 01/20/20 21:36 Dose: 10 mg Documented by: Tamsulosin HCl (Flomax -) 0.4 mg PO [facility] Last Admin: 01/20/20 21:35 Dose: 0.4 mg Documented by: Zinc Oxide (Desitin Diaper Rash Oint -) 1 applic TP ASDIR PRN PRN Reason: HYGEINE - Objective Vital Signs: Vital Signs Temperature 97.9 F 01/21/20 06:00 Pulse Rate 76 01/21/20 06:00 Respiratory Rate 20 01/21/20 06:00 Blood Pressure 100/48 L 01/21/20 06:00 O2 Sat by Pulse Oximetry (%) 94 L 01/21/20 09:00 Neck: Yes: Supple Cardiovascular: Yes: Regular Rate and Rhythm, S1, S2. No: Murmur Respiratory: Yes: Diminished Gastrointestinal: Yes: Normal Bowel Sounds, Soft. No: Tenderness Extremities: Yes: Amputation Edema: No Labs: CBC, BMP 01/21/20 09:35 01/21/20 09:35 Problem List - Problems (1) CKD (chronic kidney disease) Code(s): N18.9 - CHRONIC KIDNEY DISEASE, UNSPECIFIED Qualifiers: Chronic kidney disease stage: unspecified stage Qualified Code(s): N18.9 - Chronic kidney disease, unspecified (2) UTI (lower urinary tract infection) Code(s): N39.0 - URINARY TRACT INFECTION, SITE NOT SPECIFIED (3) ASHD (arteriosclerotic heart disease) Code(s): I25.10 - ATHSCL HEART DISEASE OF [place] CORONARY ARTERY W/O ANG PCTRS (4) Acute on chronic systolic (congestive) heart failure Code(s): I50.23 - ACUTE ON CHRONIC SYSTOLIC (CONGESTIVE) HEART FAILURE (5) Carotid artery disease Code(s): I77.9 - DISORDER OF ARTERIES AND ARTERIOLES, UNSPECIFIED (6) Diabetes mellitus Code(s): E11.9 - TYPE 2 DIABETES MELLITUS WITHOUT COMPLICATIONS (7) HTN (hypertension) Code(s): I10 - ESSENTIAL (PRIMARY) HYPERTENSION Qualifiers: (8) History of implantable cardiac defibrillator (ICD) Code(s): [id number] - (9) Hx of CABG Code(s): Z95.1 - PRESENCE OF AORTOCORONARY BYPASS GRAFT (10) Hypercholesterolemia Code(s): E78.0 - PURE HYPERCHOLESTEROLEMIA * DO NOT USE * (11) PVD (peripheral vascular disease) Code(s): I73.9 - PERIPHERAL VASCULAR DISEASE, UNSPECIFIED (12) Systolic dysfunction with acute on chronic heart failure Code(s): I50.23 - ACUTE ON CHRONIC SYSTOLIC (CONGESTIVE) HEART FAILURE (13) Weakness Code(s): R53.1 - WEAKNESS Assessment/Plan 1. Gross hematuria, dysuria, suspected cystitis 2. 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 Chronic systolic/diastolic failure with bilateral effusion, worsened SOB 4. UTI 5. CAD post CABG, angina pectoris 6. HTN 7. NIDDM 8. Hypercholesterolemia 9. 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 Carotid stenosis 11. Hypothyroidism 12. PAD post [employer] and amputation (TMA) 13. Macrocytic anemia 14. Thrombocytopenia 15. Sacral decubiti ulcer 16. Hypernatremia 17. Moderate right pleural effusion PLAN: 1. Transfuse as needed. Monitor renal function and electrolytes 2. Furosemide 40 mg IV BID and monitor renal recovery and electrolytes 3. Restart ASA 81 mg QD pending hemostasis. Continue Carvedilol 3.125 mg BID. Currently on Rosuvastatin 10 mg QHS. Not on ARB 4. Empiric antibiotic course 5. Pulmonary input noted regarding diagnostic thoracentesis and its risk for the patient Keyon Fair MD
--- NOTE | 2020-01-21 14:31 | PATH ---
Surgical Pathology Report Patient Name: CHASTITY LAUGHLIN SR Med. Rec. #: [id number] /Age/Gender: 1930 (Age: 89) / M Account: [id number] Location: [address] [place] [address]/[facility] Taken: 01/16/2020 Received: 01/20/2020 Reported: 01/21/2020 Physicians: Joie Noonan M.D. Specimen(s) Received BLADDER Clinical History Lower urinary tract infection, hematuria Final Diagnosis BLADDER BIOPSY: DENUDED EPITHELIAL MUCOSA AND SUBJACENT MUSCULARIS PROPRIA WITH FOCAL HEMORRHAGE, MARKED ACUTE AND CHRONIC INFLAMMATION. NEGATIVE FOR MALIGNANCY. Electronically Signed London Marte M.D. Gross Description Received in formalin labeled "bladder biopsy," are 2 michel soft tissue fragments measuring 0.5 and 0.7 cm in greatest dimension. The specimens are submitted in toto in one cassette. /01/20/202001/20/2020
--- NOTE | 2020-01-21 17:56 | PN ---
Progress Note, Physician Chief Complaint: Hematuria History of Present Illness: Seen and examined at the bedside awake and alert at the bedside he is being fed soup making urine - Current Medication List Current Medications: Active Medications Acetaminophen (Tylenol -) 650 mg PO Q6H PRN PRN Reason: PAIN SCALE 1-6 Alprazolam (Xanax -) 0.25 mg PO HS PRN PRN Reason: ANXIETY Amino Acids (Prosource No Carb Liquid Pkt) 30 ml PO BID@0800,1730 [facility] Last Admin: 01/21/20 17:17 Dose: Not Given Documented by: Amoxicillin (Amoxicillin -) 500 mg PO BID [facility] Last Admin: 01/21/20 10:11 Dose: Not Given Documented by: Ascorbic Acid (Vitamin C -) 500 mg PO DAILY [facility] Last Admin: 01/21/20 10:13 Dose: Not Given Documented by: Bacitracin (Bacitracin -) 1 applic TP DAILY [facility] Last Admin: 01/21/20 10:00 Dose: 1 applic Documented by: Carvedilol (Coreg -) 3.125 mg PO BID [facility] Last Admin: 01/21/20 10:12 Dose: Not Given Documented by: Cholecalciferol (Vitamin D3 -) 1,000 unit PO DAILY [facility] Last Admin: 01/21/20 10:13 Dose: Not Given Documented by: Famotidine (Pepcid -) 20 mg PO DAILY [facility] Last Admin: 01/21/20 10:12 Dose: Not Given Documented by: Fentanyl (Sublimaze Injection -) 25 mcg IVPUSH [id number] PRN PRN Reason: PAIN-PACU ORDER X 4 DOSES ONLY Finasteride (Proscar -) 5 mg PO DAILY [facility] Last Admin: 01/21/20 10:13 Dose: Not Given Documented by: Folic Acid (Folic Acid -) 1 mg PO DAILY [facility] Last Admin: 01/21/20 10:12 Dose: Not Given Documented by: Furosemide (Lasix Injection -) 40 mg IVPUSH BID [facility] Last Admin: 01/21/20 10:15 Dose: 40 mg Documented by: Levothyroxine Sodium (Synthroid -) 75 mcg PO DAILY@0700 [facility] Last Admin: 01/21/20 06:02 Dose: 75 mcg Documented by: Lidocaine (Lidoderm Patch -) 1 patch TP DAILY@1630 PRN PRN Reason: PAIN Last Admin: 01/21/20 10:15 Dose: 1 patch Documented by: Miscellaneous (Lidoderm Patch Removal) 1 each MC DAILY@0430 [facility] Last Admin: 01/21/20 05:05 Dose: 1 each Documented by: Multivitamins/Minerals (Theragran-M) 1 each PO DAILY [facility] Last Admin: 01/21/20 10:13 Dose: Not Given Documented by: Polyethylene Glycol (Miralax (For Daily Use) -) 17 gm PO BID PRN PRN Reason: CONSTIPATION Pregabalin (Lyrica -) 50 mg PO [facility] Last Admin: 01/20/20 21:35 Dose: 50 mg Documented by: Rosuvastatin Calcium (Crestor -) 10 mg PO [facility] Last Admin: 01/20/20 21:36 Dose: 10 mg Documented by: Tamsulosin HCl (Flomax -) 0.4 mg PO [facility] Last Admin: 01/20/20 21:35 Dose: 0.4 mg Documented by: Zinc Oxide (Desitin Diaper Rash Oint -) 1 applic TP ASDIR PRN PRN Reason: HYGEINE - Objective Vital Signs: Vital Signs Temperature 97.4 F L 01/21/20 14:49 Pulse Rate 72 01/21/20 14:49 Respiratory Rate 20 01/21/20 14:49 Blood Pressure 108/52 L 01/21/20 14:49 O2 Sat by Pulse Oximetry (%) 94 L 01/21/20 09:00 Constitutional: Yes: No Distress Neck: Yes: Supple Cardiovascular: Yes: Regular Rate and Rhythm Respiratory: Yes: Regular, Diminished Gastrointestinal: Yes: Soft Extremities: No: Cyanosis Edema: No Labs: CBC, BMP 01/21/20 09:35 01/21/20 09:35 INR, PTT INR 1.26 (0.83-1.09) H 01/13/20 01:24 Assessment/Plan 89 year old male with history of CKD stage 4 (baseline Cr 1.7-2.2), CAD s/p CABG, BPH, CHF 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 1. CKD stage 4 2. Dysuria/Suspected cystitis 3. CAD s/p CABG 4. 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 Acute on chronic anemia Renal function slightly improved from yesterday Continue IV Lasix for now ammonia levels are within normal limits Trend renal function and electrolytes daily Trend H/H Oscar Madrid DO
[2020-01-21] MEDS ORDERED: PT OWN MED DRAWER 7, Y5N ONE (21:25)
[2020-01-21] MEDS: PREGABALIN 50 MG CAPSULE PO SCH (22:15)
[2020-01-21] MEDS: ROSUVASTATIN CA 10 MG TABLET (FP) PO SCH (22:15)
[2020-01-21] MEDS: TAMSULOSIN HCL 0.4 MG CAP PO SCH (22:15)
[2020-01-22] MEDS: LIDOCAINE PATCH REMOVAL MC SCH (05:00)
[2020-01-22] MEDS: LEVOTHYROXINE NA 75 MCG TABLET (FP) PO SCH (06:19)
[2020-01-22] MEDS: AMINO ACIDS/PROTEIN HYDROLYS 30 ML LIQUID.PKT PO SCH ×2 (09:49→17:40)
[2020-01-22 09:57] LABS: POTASSIUM 3.5 mmol/L (3.5-5.1)
[2020-01-22 10:01] LABS: BLOOD UREA NITROGEN 72.7 mg/dL (7-18); CALCIUM 8.4 mg/dL (8.5-10.1); CREATININE 2.6 mg/dL (0.55-1.3)
[2020-01-22] MEDS: BACITRACIN 15 GM TUBE TOPICAL OINTMENT TP SCH (10:10)
[2020-01-22] MEDS: CARVEDILOL 3.125 MG TABLET (FP) PO SCH ×2 (10:10→21:46)
[2020-01-22] MEDS: AMOXICILLIN 500 MG CAPSULE (FP) PO SCH ×2 (10:10→21:46)
[2020-01-22] MEDS: FOLIC ACID 1 MG TABLET (FP) PO SCH (10:10)
[2020-01-22] MEDS: FAMOTIDINE 20 MG TABLET PO SCH (10:11)
[2020-01-22] MEDS: CHOLECALCIFEROL (VIT D3) 1,000 UNIT (25 MCG) TABLET PO SCH (10:11)
[2020-01-22] MEDS: FINASTERIDE 5 MG TABLET (FP) PO SCH (10:11)
[2020-01-22] MEDS: MULTIVITAMINS THER W-MINERALS COMBO TABLET (FP) PO SCH (10:11)
[2020-01-22] MEDS: ASCORBIC ACID 500 MG TABLET (FP) PO SCH (10:11)
[2020-01-22] MEDS: FUROSEMIDE 40 MG/4 ML INJECTABLE VIAL IVPUSH SCH (10:13)
--- NOTE | 2020-01-22 10:15 | PN ---
Progress Note, Physician History of Present Illness: The patient is an 89 year old white male, with a significant past medical history of mild-moderate systolic CHF, s/p CABG, s/p ICD, HTN, recurrent UTIs secondary, DM, PAD s/p left transmetatarsal amputation, on home O2 2L (only at night), dementia, who presented with dysuria, urgency, frequency and gross hematuria and noted to have Cr of 2.4. Renal sono with mild left hydro, bladder sono likely with large clot. Urine currently pink on CBI. Denies any flank pain, fever, chills, CP or shortness of breath, leg swelling. Appetite has been poor, more lethargic, opens eyes but not following commands, not interactive, Hgb 7.2 despite receiving 4 u pRBC transfusion. 01/16/2020 Underwent cysto, evacuation of clot,, bladder biopsy, urologist noted erythema in bladder. prostatic bleeding 01/23/2020 Demadex switched to IV Lasix yesterday for increased SOB, currently being fed lunch - Current Medication List Current Medications: Active Medications Acetaminophen (Tylenol -) 650 mg PO Q6H PRN PRN Reason: PAIN SCALE 1-6 Amino Acids (Prosource No Carb Liquid Pkt) 30 ml PO BID@0800,1730 [facility] Last Admin: 01/22/20 09:49 Dose: Not Given Documented by: Amoxicillin (Amoxicillin -) 500 mg PO BID [facility] Last Admin: 01/22/20 10:10 Dose: Not Given Documented by: Ascorbic Acid (Vitamin C -) 500 mg PO DAILY [facility] Last Admin: 01/22/20 10:11 Dose: Not Given Documented by: Bacitracin (Bacitracin -) 1 applic TP DAILY [facility] Last Admin: 01/22/20 10:10 Dose: 1 applic Documented by: Carvedilol (Coreg -) 3.125 mg PO BID [facility] Last Admin: 01/22/20 10:10 Dose: Not Given Documented by: Cholecalciferol (Vitamin D3 -) 1,000 unit PO DAILY [facility] Last Admin: 01/22/20 10:11 Dose: Not Given Documented by: Famotidine (Pepcid -) 20 mg PO DAILY [facility] Last Admin: 01/22/20 10:11 Dose: Not Given Documented by: Fentanyl (Sublimaze Injection -) 25 mcg IVPUSH [id number] PRN PRN Reason: PAIN-PACU ORDER X 4 DOSES ONLY Finasteride (Proscar -) 5 mg PO DAILY [facility] Last Admin: 01/22/20 10:11 Dose: Not Given Documented by: Folic Acid (Folic Acid -) 1 mg PO DAILY [facility] Last Admin: 01/22/20 10:10 Dose: Not Given Documented by: Furosemide (Lasix Injection -) 40 mg IVPUSH BID [facility] Last Admin: 01/22/20 10:13 Dose: 40 mg Documented by: Levothyroxine Sodium (Synthroid -) 75 mcg PO DAILY@0700 [facility] Last Admin: 01/22/20 06:19 Dose: 75 mcg Documented by: Lidocaine (Lidoderm Patch -) 1 patch TP DAILY@1630 PRN PRN Reason: PAIN Last Admin: 01/21/20 10:15 Dose: 1 patch Documented by: Miscellaneous (Lidoderm Patch Removal) 1 each MC DAILY@0430 [facility] Last Admin: 01/22/20 05:00 Dose: 1 each Documented by: Multivitamins/Minerals (Theragran-M) 1 each PO DAILY [facility] Last Admin: 01/22/20 10:11 Dose: Not Given Documented by: Polyethylene Glycol (Miralax (For Daily Use) -) 17 gm PO BID PRN PRN Reason: CONSTIPATION Pregabalin (Lyrica -) 50 mg PO [facility] Last Admin: 01/21/20 22:15 Dose: 50 mg Documented by: Rosuvastatin Calcium (Crestor -) 10 mg PO [facility] Last Admin: 01/21/20 22:15 Dose: 10 mg Documented by: Tamsulosin HCl (Flomax -) 0.4 mg PO [facility] Last Admin: 01/21/20 22:15 Dose: 0.4 mg Documented by: Zinc Oxide (Desitin Diaper Rash Oint -) 1 applic TP ASDIR PRN PRN Reason: HYGEINE - Objective Vital Signs: Vital Signs Temperature 98.4 F 01/22/20 05:52 Pulse Rate 78 01/22/20 05:52 Respiratory Rate 20 01/22/20 05:52 Blood Pressure 103/52 L 01/22/20 05:52 O2 Sat by Pulse Oximetry (%) 94 L 01/21/20 21:00 Constitutional: Yes: No Distress, Calm, Cachectic, Thin Neck: Yes: Supple Cardiovascular: Yes: Regular Rate and Rhythm Respiratory: Yes: Regular, Diminished, On Venti-Mask, SOB Gastrointestinal: Yes: Normal Bowel Sounds, Soft Edema: No Labs: CBC, BMP 01/21/20 09:35 01/22/20 08:51 INR, PTT INR 1.26 (0.83-1.09) H 01/13/20 01:24 - ....Imaging Chest X-ray: Report Reviewed (Congestion and bilateral effusions) Assessment/Plan Problem List - Problems (1) Weakness Code(s): R53.1 - WEAKNESS (2) Acute on chronic systolic (congestive) heart failure Code(s): I50.23 - ACUTE ON CHRONIC SYSTOLIC (CONGESTIVE) HEART FAILURE (3) CAD (coronary artery disease) Code(s): I25.10 - ATHSCL HEART DISEASE OF [place] CORONARY ARTERY W/O ANG PCTRS Qualifiers: Coronary Disease-Associated Artery/Lesion type: [place] artery [place] vs. t ransplanted heart: [place] heart Associated angina: without angina Qualified Code(s): I25.10 - Atherosclerotic heart disease of [place] coronary artery without angina pectoris (4) CKD (chronic kidney disease) Code(s): N18.9 - CHRONIC KIDNEY DISEASE, UNSPECIFIED Qualifiers: Chronic kidney disease stage: stage 3 (moderate) Qualified Code(s): N18.3 - Chronic kidney disease, stage 3 (moderate) (5) Hx of CABG Code(s): Z95.1 - PRESENCE OF AORTOCORONARY BYPASS GRAFT (6) Hypercholesterolemia Code(s): E78.0 - PURE HYPERCHOLESTEROLEMIA * DO NOT USE * (7) Hypothyroidism Code(s): E03.9 - HYPOTHYROIDISM, UNSPECIFIED Qualifiers: Hypothyroidism type: unspecified Qualified Code(s): E03.9 - Hypothyroidism, unspecified (8) ICD (implantable cardioverter-defibrillator) in place Code(s): Z95.810 - PRESENCE OF AUTOMATIC (IMPLANTABLE) CARDIAC DEFIBRILLATOR (9) Pleural effusion Code(s): J90 - PLEURAL EFFUSION, NOT ELSEWHERE CLASSIFIED Assessment/Plan 12/27/[address]: Large bilateral pleural effusion with compressive ATX R>L, no pulm masses, mild mediastinal LAD unchanged from 02/25/2019 12/27/2019 CXR Large right effusion, mild left 07/21/2016 echocardiography revealed moderately dilated LV with mild-moderate decrease in LV function, pacer RV, mild LAE, moderate MR, mild TR 08/02/2018 echocardiography revealed mild to moderately decreased LVEF 40-45%, normal RV size and function, mild LAE, mild MR, trace TR and AR 1. Gross hematuria, dysuria, suspected cystitis 2. 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 Acute on chronic systolic/diastolic failure with bilateral effusion, worsened SOB 4. UTI 5. CAD post CABG, angina pectoris 6. HTN 7. NIDDM 8. Hypercholesterolemia 9. 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 Carotid stenosis 11. Hypothyroidism 12. PAD post [employer]TLEMENT [employer]OR and amputation (TMA) 13. Macrocytic anemia 14. Thrombocytopenia 15. Sacral decubiti ulcer 16. Hypernatremia resolved 17. Moderate right pleural effusion PLAN: 1. Transfuse as needed. Monitor renal function and electrolytes 2. Furosemide 40 mg IV BID and monitor renal recovery and electrolytes 3. Restart ASA 81 mg QD pending hemostasis. Continue Carvedilol 3.125 mg BID. Currently on Rosuvastatin 10 mg QHS. Not on ARB 4. Empiric antibiotic course, wean O2 to maintain sa)2>90% 5. Pulmonary input noted regarding diagnostic thoracentesis and its risk for the patient
--- NOTE | 2020-01-22 10:56 | PN ---
Progress Note, Physician Chief Complaint: more tired and decreased po intake; borderline low BP; occ low O2 on FM; seen by palliative care; d/w pt's pt's condition, she said she has DNR DNI form for him signed per his prior wishes and she agrees with non aggressive intervention, wants to keep him comfortable - Current Medication List Current Medications: Active Medications Acetaminophen (Tylenol -) 650 mg PO Q6H PRN PRN Reason: PAIN SCALE 1-6 Amino Acids (Prosource No Carb Liquid Pkt) 30 ml PO BID@0800,1730 [facility] Last Admin: 01/22/20 09:49 Dose: Not Given Documented by: Amoxicillin (Amoxicillin -) 500 mg PO BID [facility] Last Admin: 01/22/20 10:10 Dose: Not Given Documented by: Ascorbic Acid (Vitamin C -) 500 mg PO DAILY [facility] Last Admin: 01/22/20 10:11 Dose: Not Given Documented by: Bacitracin (Bacitracin -) 1 applic TP DAILY [facility] Last Admin: 01/22/20 10:10 Dose: 1 applic Documented by: Carvedilol (Coreg -) 3.125 mg PO BID [facility] Last Admin: 01/22/20 10:10 Dose: Not Given Documented by: Cholecalciferol (Vitamin D3 -) 1,000 unit PO DAILY [facility] Last Admin: 01/22/20 10:11 Dose: Not Given Documented by: Famotidine (Pepcid -) 20 mg PO DAILY [facility] Last Admin: 01/22/20 10:11 Dose: Not Given Documented by: Fentanyl (Sublimaze Injection -) 25 mcg IVPUSH [id number] PRN PRN Reason: PAIN-PACU ORDER X 4 DOSES ONLY Finasteride (Proscar -) 5 mg PO DAILY [facility] Last Admin: 01/22/20 10:11 Dose: Not Given Documented by: Folic Acid (Folic Acid -) 1 mg PO DAILY [facility] Last Admin: 01/22/20 10:10 Dose: Not Given Documented by: Furosemide (Lasix Injection -) 40 mg IVPUSH BID [facility] Last Admin: 01/22/20 10:13 Dose: 40 mg Documented by: Levothyroxine Sodium (Synthroid -) 75 mcg PO DAILY@0700 [facility] Last Admin: 01/22/20 06:19 Dose: 75 mcg Documented by: Lidocaine (Lidoderm Patch -) 1 patch TP DAILY@1630 PRN PRN Reason: PAIN Last Admin: 01/21/20 10:15 Dose: 1 patch Documented by: Miscellaneous (Lidoderm Patch Removal) 1 each MC DAILY@0430 [facility] Last Admin: 01/22/20 05:00 Dose: 1 each Documented by: Multivitamins/Minerals (Theragran-M) 1 each PO DAILY [facility] Last Admin: 01/22/20 10:11 Dose: Not Given Documented by: Polyethylene Glycol (Miralax (For Daily Use) -) 17 gm PO BID PRN PRN Reason: CONSTIPATION Pregabalin (Lyrica -) 50 mg PO [facility] Last Admin: 01/21/20 22:15 Dose: 50 mg Documented by: Rosuvastatin Calcium (Crestor -) 10 mg PO [facility] Last Admin: 01/21/20 22:15 Dose: 10 mg Documented by: Tamsulosin HCl (Flomax -) 0.4 mg PO [facility] Last Admin: 01/21/20 22:15 Dose: 0.4 mg Documented by: Zinc Oxide (Desitin Diaper Rash Oint -) 1 applic TP ASDIR PRN PRN Reason: HYGEINE - Objective Vital Signs: Vital Signs Temperature 98.4 F 01/22/20 05:52 Pulse Rate 78 01/22/20 05:52 Respiratory Rate 20 01/22/20 05:52 Blood Pressure 103/52 L 01/22/20 05:52 O2 Sat by Pulse Oximetry (%) 94 L 01/21/20 21:00 Constitutional: Yes: No Distress, Calm Eyes: Yes: Conjunctiva Clear HENT: Yes: Atraumatic Neck: Yes: Supple Cardiovascular: Yes: Regular Rate and Rhythm Respiratory: Yes: Diminished Gastrointestinal: Yes: Soft. No: Tenderness Genitourinary: No: Hematuria Musculoskeletal: No: Joint Stiffness, Joint Swelling Extremities: No: Cold, Cool, Cyanosis Edema: No Integumentary: Yes: Bruising. No: Rash, Venous Stasis Changes Neurological: Yes: Alert. No: Oriented Psychiatric: Yes: Alert. No: Oriented, Agitated Labs: CBC, BMP 01/21/20 09:35 01/22/20 08:51 INR, PTT INR 1.26 (0.83-1.09) H 01/13/20 01:24 - ....Imaging Other: Report Reviewed Assessment/Plan 89 yo M history CHF s/p AICD, CAD s/p stents, HTN, HL, CKD, BPH, hypothyroid admitted with hematuria, dysuria and passing clots; UCx enteroccocus; s/p Cystoscopy hematuria stopped; on po ATB CHF / fluid OL on IV lasix; borderline hypotensive; decreased po intake renal and cardio f/u; CXR; labs; pulm f/u palliative care eval DVT pfx - can not use sq heparin due to bleeding decubs PFX turn q1 hour; wounds care; protein malnutrition - added po AA d/w pt's all the above; she asked for DNR DNI per pt's wishes also for eval for home hospice per pt's wishes to go home; she does not want [facility]; d/w D staff.
--- NOTE | 2020-01-22 13:06 | PN ---
Progress Note, Physician History of Present Illness: PULMONARY LETHARGIC,AROUSABLE,MILDLY DYSPNEIC ON 40%VM,O2 SAT 100% - Current Medication List Current Medications: Active Medications Acetaminophen (Tylenol -) 650 mg PO Q6H PRN PRN Reason: PAIN SCALE 1-6 Amino Acids (Prosource No Carb Liquid Pkt) 30 ml PO BID@0800,1730 [facility] Last Admin: 01/22/20 09:49 Dose: Not Given Documented by: Amoxicillin (Amoxicillin -) 500 mg PO BID [facility] Last Admin: 01/22/20 10:10 Dose: Not Given Documented by: Ascorbic Acid (Vitamin C -) 500 mg PO DAILY [facility] Last Admin: 01/22/20 10:11 Dose: Not Given Documented by: Bacitracin (Bacitracin -) 1 applic TP DAILY [facility] Last Admin: 01/22/20 10:10 Dose: 1 applic Documented by: Carvedilol (Coreg -) 3.125 mg PO BID [facility] Last Admin: 01/22/20 10:10 Dose: Not Given Documented by: Cholecalciferol (Vitamin D3 -) 1,000 unit PO DAILY [facility] Last Admin: 01/22/20 10:11 Dose: Not Given Documented by: Famotidine (Pepcid -) 20 mg PO DAILY [facility] Last Admin: 01/22/20 10:11 Dose: Not Given Documented by: Fentanyl (Sublimaze Injection -) 25 mcg IVPUSH [id number] PRN PRN Reason: PAIN-PACU ORDER X 4 DOSES ONLY Finasteride (Proscar -) 5 mg PO DAILY [facility] Last Admin: 01/22/20 10:11 Dose: Not Given Documented by: Folic Acid (Folic Acid -) 1 mg PO DAILY [facility] Last Admin: 01/22/20 10:10 Dose: Not Given Documented by: Furosemide (Lasix Injection -) 40 mg IVPUSH BID [facility] Last Admin: 01/22/20 10:13 Dose: 40 mg Documented by: Levothyroxine Sodium (Synthroid -) 75 mcg PO DAILY@0700 [facility] Last Admin: 01/22/20 06:19 Dose: 75 mcg Documented by: Lidocaine (Lidoderm Patch -) 1 patch TP DAILY@1630 PRN PRN Reason: PAIN Last Admin: 01/21/20 10:15 Dose: 1 patch Documented by: Miscellaneous (Lidoderm Patch Removal) 1 each MC DAILY@0430 [facility] Last Admin: 01/22/20 05:00 Dose: 1 each Documented by: Multivitamins/Minerals (Theragran-M) 1 each PO DAILY [facility] Last Admin: 01/22/20 10:11 Dose: Not Given Documented by: Polyethylene Glycol (Miralax (For Daily Use) -) 17 gm PO BID PRN PRN Reason: CONSTIPATION Pregabalin (Lyrica -) 50 mg PO [facility] Last Admin: 01/21/20 22:15 Dose: 50 mg Documented by: Rosuvastatin Calcium (Crestor -) 10 mg PO [facility] Last Admin: 01/21/20 22:15 Dose: 10 mg Documented by: Tamsulosin HCl (Flomax -) 0.4 mg PO [facility] Last Admin: 01/21/20 22:15 Dose: 0.4 mg Documented by: Zinc Oxide (Desitin Diaper Rash Oint -) 1 applic TP ASDIR PRN PRN Reason: HYGEINE - Objective Vital Signs: Vital Signs Temperature 98.4 F 01/22/20 05:52 Pulse Rate 78 01/22/20 05:52 Respiratory Rate 20 01/22/20 05:52 Blood Pressure 103/52 L 01/22/20 05:52 O2 Sat by Pulse Oximetry (%) 100 01/22/20 10:00 Constitutional: Yes: Thin, Other (LETHARGIC) Eyes: Yes: WNL HENT: Yes: WNL Neck: Yes: WNL Cardiovascular: Yes: Regular Rate and Rhythm, S1, S2 Respiratory: Yes: Diminished, Other (POOR INSPIRATOERY EFFORT) Gastrointestinal: Yes: Normal Bowel Sounds, Soft Extremities: Yes: WNL, Amputation (left foot tma) Edema: No Labs: CBC, BMP 01/21/20 09:35 01/22/20 08:51 INR, PTT INR 1.26 (0.83-1.09) H 01/13/20 01:24 Assessment/Plan Problem List - Problems (1) CKD (chronic kidney disease) Code(s): N18.9 - CHRONIC KIDNEY DISEASE, UNSPECIFIED Qualifiers: Chronic kidney disease stage: unspecified stage Qualified Code(s): N18.9 - Chronic kidney disease, unspecified (2) Hematuria Code(s): R31.9 - HEMATURIA, UNSPECIFIED Qualifiers: Hematuria type: gross Qualified Code(s): R31.0 - Gross hematuria (3) ASHLYN (acute kidney injury) Code(s): N17.9 - ACUTE KIDNEY FAILURE, UNSPECIFIED (4) ASHD (arteriosclerotic heart disease) Code(s): I25.10 - ATHSCL HEART DISEASE OF [place] CORONARY ARTERY W/O ANG PCTRS (5) Anemia Code(s): D64.9 - ANEMIA, UNSPECIFIED Qualifiers: Anemia type: unspecified type Qualified Code(s): D64.9 - Anemia, unspecified (6) Anxiety Code(s): F41.9 - ANXIETY DISORDER, UNSPECIFIED (7) BPH (benign prostatic hyperplasia) Code(s): N40.0 - BENIGN PROSTATIC HYPERPLASIA WITHOUT LOWER URINRY TRACT SYMP (8) Bilateral leg edema Code(s): R60.0 - LOCALIZED EDEMA (9) CAD (coronary artery disease) Code(s): I25.10 - ATHSCL HEART DISEASE OF [place] CORONARY ARTERY W/O ANG PCTRS Qualifiers: Coronary Disease-Associated Artery/Lesion type: [place] artery [place] vs. transplanted heart: [place] heart Associated angina: without angina Qualified Code(s): I25.10 - Atherosclerotic heart disease of [place] coronary artery without angina pectoris (10) CHF (congestive heart failure) Code(s): I50.9 - HEART FAILURE, UNSPECIFIED (11) CHF exacerbation Code(s): I50.9 - HEART FAILURE, UNSPECIFIED (12) COPD (chronic obstructive pulmonary disease) Code(s): J44.9 - CHRONIC OBSTRUCTIVE PULMONARY DISEASE, UNSPECIFIED Qualifiers: COPD type: unspecified COPD Qualified Code(s): J44.9 - Chronic obstructive pulmonary disease, unspecified (13) Carotid artery disease Code(s): I77.9 - DISORDER OF ARTERIES AND ARTERIOLES, UNSPECIFIED (14) Chronic renal failure Code(s): N18.9 - CHRONIC KIDNEY DISEASE, UNSPECIFIED (15) Chronic systolic heart failure Code(s): I50.22 - CHRONIC SYSTOLIC (CONGESTIVE) HEART FAILURE (16) Cough Code(s): R05 - COUGH (17) Diabetes mellitus Code(s): E11.9 - TYPE 2 DIABETES MELLITUS WITHOUT COMPLICATIONS (18) Dyspnea Code(s): R06.00 - DYSPNEA, UNSPECIFIED Qualifiers: (19) [place] (hard of hearing) Code(s): H91.90 - UNSPECIFIED HEARING LOSS, UNSPECIFIED EAR (20) HTN (hypertension) Code(s): I10 - ESSENTIAL (PRIMARY) HYPERTENSION Qualifiers: (21) History of ischemic colitis Code(s): Z87.19 - PERSONAL HISTORY OF OTHER DISEASES OF THE DIGESTIVE SYSTEM (22) Hx of BKA Code(s): Z89.519 - ACQUIRED ABSENCE OF UNSPECIFIED LEG BELOW KNEE (23) Hx of CABG Code(s): Z95.1 - PRESENCE OF AORTOCORONARY BYPASS GRAFT (24) Hypercholesterolemia Code(s): E78.0 - PURE HYPERCHOLESTEROLEMIA * DO NOT USE * (25) Hypoalbuminemia Code(s): E88.09 - OTH DISORDERS OF PLASMA-PROTEIN METABOLISM, NEC (26) Hypothyroidism Code(s): E03.9 - HYPOTHYROIDISM, UNSPECIFIED Qualifiers: Hypothyroidism type: unspecified Qualified Code(s): E03.9 - Hypothyroidism, unspecified (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 Code(s): Z95.810 - PRESENCE OF AUTOMATIC (IMPLANTABLE) CARDIAC DEFIBRILLATOR (28) PVD (peripheral vascular disease) Code(s): I73.9 - PERIPHERAL VASCULAR DISEASE, UNSPECIFIED (29) Peripheral arterial disease Code(s): I73.9 - PERIPHERAL VASCULAR DISEASE, UNSPECIFIED (30) Pleural effusion Code(s): J90 - PLEURAL EFFUSION, NOT ELSEWHERE CLASSIFIED (31) Urinary retention Code(s): R33.9 - RETENTION OF URINE, UNSPECIFIED Assessment/Plan IV Lasix 40mg BID VM O2 to maintain saturation Aspiration precautions Follow CXR Thoracentesis if no improvement DR NAVARRO Problem List - Problems (1) CKD (chronic kidney disease) Code(s): N18.9 - CHRONIC KIDNEY DISEASE, UNSPECIFIED Qualifiers: Chronic kidney disease stage: unspecified stage Qualified Code(s): N18.9 - Chronic kidney disease, unspecified (2) Hematuria Code(s): R31.9 - HEMATURIA, UNSPECIFIED Qualifiers: Hematuria type: gross Qualified Code(s): R31.0 - Gross hematuria (3) ASHLYN (acute kidney injury) Code(s): N17.9 - ACUTE KIDNEY FAILURE, UNSPECIFIED (4) ASHD (arteriosclerotic heart disease) Code(s): I25.10 - ATHSCL HEART DISEASE OF [place] CORONARY ARTERY W/O ANG PCTRS (5) Anemia Code(s): D64.9 - ANEMIA, UNSPECIFIED Qualifiers: Anemia type: unspecified type Qualified Code(s): D64.9 - Anemia, unspecified (6) Anxiety Code(s): F41.9 - ANXIETY DISORDER, UNSPECIFIED (7) BPH (benign prostatic hyperplasia) Code(s): N40.0 - BENIGN PROSTATIC HYPERPLASIA WITHOUT LOWER URINRY TRACT SYMP (8) Bilateral leg edema Code(s): R60.0 - LOCALIZED EDEMA (9) CAD (coronary artery disease) Code(s): I25.10 - ATHSCL HEART DISEASE OF [place] CORONARY ARTERY W/O ANG PCTRS Qualifiers: Coronary Disease-Associated Artery/Lesion type: [place] artery [place] vs. transplanted heart: [place] heart Associated angina: without angina Qualified Code(s): I25.10 - Atherosclerotic heart disease of [place] coronary artery without angina pectoris (10) CHF (congestive heart failure) Code(s): I50.9 - HEART FAILURE, UNSPECIFIED (11) CHF exacerbation Code(s): I50.9 - HEART FAILURE, UNSPECIFIED (12) COPD (chronic obstructive pulmonary disease) Code(s): J44.9 - CHRONIC OBSTRUCTIVE PULMONARY DISEASE, UNSPECIFIED Qualifiers: COPD type: unspecified COPD Qualified Code(s): J44.9 - Chronic obstructive pulmonary disease, unspecified (13) Carotid artery disease Code(s): I77.9 - DISORDER OF ARTERIES AND ARTERIOLES, UNSPECIFIED (14) Chronic renal failure Code(s): N18.9 - CHRONIC KIDNEY DISEASE, UNSPECIFIED (15) Chronic systolic heart failure Code(s): I50.22 - CHRONIC SYSTOLIC (CONGESTIVE) HEART FAILURE (16) Cough Code(s): R05 - COUGH (17) Diabetes mellitus Code(s): E11.9 - TYPE 2 DIABETES MELLITUS WITHOUT COMPLICATIONS (18) Dyspnea Code(s): R06.00 - DYSPNEA, UNSPECIFIED Qualifiers: (19) [place] (hard of hearing) Code(s): H91.90 - UNSPECIFIED HEARING LOSS, UNSPECIFIED EAR (20) HTN (hypertension) Code(s): I10 - ESSENTIAL (PRIMARY) HYPERTENSION Qualifiers: (21) History of ischemic colitis Code(s): Z87.19 - PERSONAL HISTORY OF OTHER DISEASES OF THE DIGESTIVE SYSTEM (22) Hx of BKA Code(s): Z89.519 - ACQUIRED ABSENCE OF UNSPECIFIED LEG BELOW KNEE (23) Hx of CABG Code(s): Z95.1 - PRESENCE OF AORTOCORONARY BYPASS GRAFT (24) Hypercholesterolemia Code(s): E78.0 - PURE HYPERCHOLESTEROLEMIA * DO NOT USE * (25) Hypoalbuminemia Code(s): E88.09 - OTH DISORDERS OF PLASMA-PROTEIN METABOLISM, NEC (26) Hypothyroidism Code(s): E03.9 - HYPOTHYROIDISM, UNSPECIFIED Qualifiers: Hypothyroidism type: unspecified Qualified Code(s): E03.9 - Hypothyroidism, unspecified (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 Code(s): Z95.810 - PRESENCE OF AUTOMATIC (IMPLANTABLE) CARDIAC DEFIBRILLATOR (28) PVD (peripheral vascular disease) Code(s): I73.9 - PERIPHERAL VASCULAR DISEASE, UNSPECIFIED (29) Peripheral arterial disease Code(s): I73.9 - PERIPHERAL VASCULAR DISEASE, UNSPECIFIED (30) Pleural effusion Code(s): J90 - PLEURAL EFFUSION, NOT ELSEWHERE CLASSIFIED (31) Urinary retention Code(s): R33.9 - RETENTION OF URINE, UNSPECIFIED
--- NOTE | 2020-01-22 16:09 | CONSULT ---
- Consultation REQUESTING PROVIDER: CONSULT REQUEST: We have been asked to surgically evaluate this patient for sacral decubitus ulcer PCP:Joie Noonan HISTORY OF PRESENT ILLNESS: 89yo M was consulted to Vascular team for evaluation of sacral decub. Pt is unable to give history, but according to pt the decubitus ulcer is new since pt was admitted to the hospital. Pt is non-ambulatory. PMHx: DM, HTN, Hypothyroidism, BPH Home Medications Medication Instructions Recorded Ascorbate Calcium [Vitamin C] 500 mg PO DAILY 01/20/14 Aspirin [ASA -] 81 mg PO DAILY 01/20/14 Carvedilol 3.125 mg PO BID 01/20/14 Folic Acid - 1 mg PO DAILY 01/20/14 Pregabalin [Lyrica -] 50 mg PO HS 01/20/14 Tamsulosin HCl [Flomax -] 0.4 mg PO HS 01/20/14 Levothyroxine [Synthroid -] 75 mcg PO DAILY 07/21/16 Ergocalciferol (Vitamin D2) 2,000 unit PO DAILY 06/09/17 [Vitamin D2] Insulin Glargine,Hum.rec.anlog 10 units SQ HS 06/09/17 [Lantus (10mL VIAL) -] Multivit-Min/FA/Lycopen/Lutein 1 tab PO DAILY 06/09/17 [Centrum Silver Tablet] Rosuvastatin Calcium 10 mg PO HS 06/09/17 Finasteride [Proscar -] 5 mg PO DAILY tablet 01/13/19 Famotidine [Pepcid] 1 tab PO DAILY 08/07/19 Acetaminophen [Tylenol .Regular 650 mg PO Q6H PRN tablet 01/01/20 Strength -] Bacitracin - [Bacitracin Topical 1 applic TP DAILY tube 01/01/20 Ointment -] Furosemide [Lasix -] 40 mg PO BID #180 tab 01/01/20 Polyethylene Glycol 3350 [Miralax 17 gm PO BID bottle 01/01/20 119 gm Btl -] Allergies Allergy/AdvReac Type Severity Reaction Status Date / Time sulfamethazine Allergy Verified 01/13/20 07:27 trimethoprim Allergy Verified 01/13/20 07:27 PHYSICAL EXAM: GENERAL: Awake, alert, and oriented to voice HEAD: Normal with no signs of trauma. EYES: PERRL, sclera anicteric, conjunctiva clear. NECK: Normal ROM, supple without lymphadenopathy, JVD, or masses. LUNGS: Clear to auscultation bilat anteriorly. No wheezes, and no crackles. No accessory muscle use. HEART: Regular rate and rhythm. No murmurs BACK: 2cm stage 2 ulcer over lower back above buttocks, large area of erythema consistent with fungal infection, moist and irritated. LOWER EXTREMITIES: warm, well-perfused. No calf tenderness. No peripheral edema. Heel protectors in place, Lt foot s/p TMA NEUROLOGICAL: Normal speech, gait not observed. PSYCH: Cooperative. Good eye contact. Appropriate mood and affect. SKIN: Warm, dry, normal turgor, no rashes or lesions noted. Vital Signs Temperature 97.5 F L 01/22/20 13:45 Pulse Rate 68 01/22/20 13:45 Respiratory Rate 18 01/22/20 13:45 Blood Pressure 106/54 L 01/22/20 13:45 O2 Sat by Pulse Oximetry (%) 100 01/22/20 10:00 Lab Results WBC 5.8 K/mm3 (4.0-10.0) 01/21/20 09:35 RBC 3.05 M/mm3 (4.00-5.60) L 01/21/20 09:35 Hgb 9.5 GM/dL (11.7-16.9) L 01/21/20 09:35 Hct 29.0 % (35.4-49) L 01/21/20 09:35 MCV 95.1 fl (80-96) 01/21/20 09:35 MCHC 32.9 g/dl (32.0-35.9) 01/21/20 09:35 RDW 17.8 % (11.9-15.9) H 01/21/20 09:35 Plt Count 109 K/MM3 (134-434) L 01/21/20 09:35 INR 1.26 (0.83-1.09) H 01/13/20 01:24 Sodium 144 mmol/L (136-145) 01/22/20 08:51 Potassium 3.5 mmol/L (3.5-5.1) 01/22/20 08:51 Chloride 106 mmol/L (98-107) 01/22/20 08:51 Carbon Dioxide 28 mmol/L (21-32) 01/22/20 08:51 Anion Gap 10 MMOL/L (8-16) 01/22/20 08:51 BUN 72.7 mg/dL (7-18) H 01/22/20 08:51 Creatinine 2.6 mg/dL (0.55-1.3) H 01/22/20 08:51 Random Glucose 148 mg/dL (74-106) H 01/22/20 08:51 Calcium 8.4 mg/dL (8.5-10.1) L 01/22/20 08:51 Blood Type A POSITIVE 01/13/20 01:24 Antibody Screen Negative 01/13/20 01:24 Problem List - Problems (1) Sacral decubitus ulcer, stage II Assessment/Plan: Sacral Ulcer/DTI Plan -Reposition every two hours while in bed -Air mattress recommended -Use drawsheets and Trendelenburg when repositioning to reduce friction and shear -Manageincontinence via timely cleansing, use of appropriate incontinence disposables and use of barrier ointment to intact skin -Ensure adequate hydration/nutrition, supplementation per primary team -Ensure off-loading to all bony areas (heels, ankles, hips and tailbone) with Allevyn/Optifoam -Clean open wounds with normal saline and apply nystatin powder Code(s): L89.152 - PRESSURE ULCER OF SACRAL REGION, STAGE 2
--- NOTE | 2020-01-22 17:13 | PN ---
Progress Note, Physician Chief Complaint: Hematuria History of Present Illness: Seen and examined at the bedside sleeping but arouseble no overnight events poor oral intake making urine - Current Medication List Current Medications: Active Medications Acetaminophen (Tylenol -) 650 mg PO Q6H PRN PRN Reason: PAIN SCALE 1-6 Amino Acids (Prosource No Carb Liquid Pkt) 30 ml PO BID@0800,1730 [facility] Last Admin: 01/22/20 09:49 Dose: Not Given Documented by: Amoxicillin (Amoxicillin -) 500 mg PO BID [facility] Last Admin: 01/22/20 10:10 Dose: Not Given Documented by: Ascorbic Acid (Vitamin C -) 500 mg PO DAILY [facility] Last Admin: 01/22/20 10:11 Dose: Not Given Documented by: Bacitracin (Bacitracin -) 1 applic TP DAILY [facility] Last Admin: 01/22/20 10:10 Dose: 1 applic Documented by: Carvedilol (Coreg -) 3.125 mg PO BID [facility] Last Admin: 01/22/20 10:10 Dose: Not Given Documented by: Cholecalciferol (Vitamin D3 -) 1,000 unit PO DAILY [facility] Last Admin: 01/22/20 10:11 Dose: Not Given Documented by: Famotidine (Pepcid -) 20 mg PO DAILY [facility] Last Admin: 01/22/20 10:11 Dose: Not Given Documented by: Fentanyl (Sublimaze Injection -) 25 mcg IVPUSH [id number] PRN PRN Reason: PAIN-PACU ORDER X 4 DOSES ONLY Finasteride (Proscar -) 5 mg PO DAILY [facility] Last Admin: 01/22/20 10:11 Dose: Not Given Documented by: Folic Acid (Folic Acid -) 1 mg PO DAILY [facility] Last Admin: 01/22/20 10:10 Dose: Not Given Documented by: Furosemide (Lasix Injection -) 40 mg IVPUSH DAILY [facility] Levothyroxine Sodium (Synthroid -) 75 mcg PO DAILY@0700 [facility] Last Admin: 01/22/20 06:19 Dose: 75 mcg Documented by: Lidocaine (Lidoderm Patch -) 1 patch TP DAILY@1630 PRN PRN Reason: PAIN Last Admin: 01/21/20 10:15 Dose: 1 patch Documented by: Miscellaneous (Lidoderm Patch Removal) 1 each MC DAILY@0430 [facility] Last Admin: 01/22/20 05:00 Dose: 1 each Documented by: Multivitamins/Minerals (Theragran-M) 1 each PO DAILY [facility] Last Admin: 01/22/20 10:11 Dose: Not Given Documented by: Nystatin (Nystop Powder -) 1 applic TP BID [facility] Polyethylene Glycol (Miralax (For Daily Use) -) 17 gm PO BID PRN PRN Reason: CONSTIPATION Pregabalin (Lyrica -) 50 mg PO [facility] Last Admin: 01/21/20 22:15 Dose: 50 mg Documented by: Rosuvastatin Calcium (Crestor -) 10 mg PO [facility] Last Admin: 01/21/20 22:15 Dose: 10 mg Documented by: Tamsulosin HCl (Flomax -) 0.4 mg PO [facility] Last Admin: 01/21/20 22:15 Dose: 0.4 mg Documented by: Zinc Oxide (Desitin Diaper Rash Oint -) 1 applic TP ASDIR PRN PRN Reason: HYGEINE - Objective Vital Signs: Vital Signs Temperature 97.5 F L 01/22/20 13:45 Pulse Rate 68 01/22/20 13:45 Respiratory Rate 18 01/22/20 13:45 Blood Pressure 106/54 L 01/22/20 13:45 O2 Sat by Pulse Oximetry (%) 100 01/22/20 10:00 Constitutional: Yes: No Distress Neck: Yes: Supple Cardiovascular: Yes: Regular Rate and Rhythm Respiratory: Yes: Diminished Extremities: No: Cyanosis Edema: No Labs: CBC, BMP 01/21/20 09:35 01/22/20 08:51 INR, PTT INR 1.26 (0.83-1.09) H 01/13/20 01:24 Assessment/Plan 89 year old male with history of CKD stage 4 (baseline Cr 1.7-2.2), CAD s/p CABG, BPH, CHF 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 1. CKD stage 4 2. Dysuria/Suspected cystitis 3. CAD s/p CABG 4. 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 Acute on chronic anemia Renal function slowly improving Continue IV Lasix for now no acute need for renal replacement therapy continue supportive care Trend renal function and electrolytes daily Trend H/H Oscar Madrid DO
[2020-01-22] MEDS: ROSUVASTATIN CA 10 MG TABLET (FP) PO SCH (21:46)
[2020-01-22] MEDS: TAMSULOSIN HCL 0.4 MG CAP PO SCH (21:46)
[2020-01-22] MEDS: PREGABALIN 50 MG CAPSULE PO SCH (21:46)
[2020-01-22] MEDS: NYSTATIN POWDER 100,000 UNITS/GM - 15 GM TOPICAL POWDER TP SCH (23:00)
[2020-01-23] MEDS: LIDOCAINE PATCH REMOVAL MC SCH (04:45)
[2020-01-23] MEDS: LEVOTHYROXINE NA 75 MCG TABLET (FP) PO SCH (06:27)
[2020-01-23 09:19] LABS: BLOOD UREA NITROGEN 71.4 mg/dL (7-18); CALCIUM 7.9 mg/dL (8.5-10.1); CREATININE 2.5 mg/dL (0.55-1.3); MAGNESIUM 2.1 mg/dL (1.8-2.4); POTASSIUM 3.7 mmol/L (3.5-5.1)
[2020-01-23] MEDS: AMINO ACIDS/PROTEIN HYDROLYS 30 ML LIQUID.PKT PO SCH ×2 (09:36→17:47)
--- NOTE | 2020-01-23 09:40 | PN ---
Progress Note, Physician History of Present Illness: The patient is an 89 year old white male, with a significant past medical history of mild-moderate systolic CHF, s/p CABG, s/p ICD, HTN, recurrent UTIs secondary, DM, PAD s/p left transmetatarsal amputation, on home O2 2L (only at night), dementia, who presented with dysuria, urgency, frequency and gross hematuria and noted to have Cr of 2.4. Renal sono with mild left hydro, bladder sono likely with large clot. Urine currently pink on CBI. Denies any flank pain, fever, chills, CP or shortness of breath, leg swelling. Appetite has been poor, more lethargic, opens eyes but not following commands, not interactive, Hgb 7.2 despite receiving 4 u pRBC transfusion. 01/16/2020 Underwent cysto, evacuation of clot,, bladder biopsy, urologist noted erythema in bladder. prostatic bleeding 01/23/2020 Demadex switched to IV Lasix yesterday for increased SOB, currently being fed lunch 01/24/2020 Less tachypneic today and more arousable on VM O2. - Current Medication List Current Medications: Active Medications Acetaminophen (Tylenol -) 650 mg PO Q6H PRN PRN Reason: PAIN SCALE 1-6 Amino Acids (Prosource No Carb Liquid Pkt) 30 ml PO BID@0800,1730 [facility] Last Admin: 01/22/20 17:40 Dose: Not Given Documented by: Amoxicillin (Amoxicillin -) 500 mg PO BID [facility] Last Admin: 01/22/20 21:46 Dose: 500 mg Documented by: Ascorbic Acid (Vitamin C -) 500 mg PO DAILY [facility] Last Admin: 01/22/20 10:11 Dose: Not Given Documented by: Bacitracin (Bacitracin -) 1 applic TP DAILY [facility] Last Admin: 01/22/20 10:10 Dose: 1 applic Documented by: Carvedilol (Coreg -) 3.125 mg PO BID [facility] Last Admin: 01/22/20 21:46 Dose: Not Given Documented by: Cholecalciferol (Vitamin D3 -) 1,000 unit PO DAILY [facility] Last Admin: 01/22/20 10:11 Dose: Not Given Documented by: Famotidine (Pepcid -) 20 mg PO DAILY [facility] Last Admin: 01/22/20 10:11 Dose: Not Given Documented by: Fentanyl (Sublimaze Injection -) 25 mcg IVPUSH [id number] PRN PRN Reason: PAIN-PACU ORDER X 4 DOSES ONLY Finasteride (Proscar -) 5 mg PO DAILY [facility] Last Admin: 01/22/20 10:11 Dose: Not Given Documented by: Folic Acid (Folic Acid -) 1 mg PO DAILY [facility] Last Admin: 01/22/20 10:10 Dose: Not Given Documented by: Furosemide (Lasix Injection -) 40 mg IVPUSH DAILY [facility] Levothyroxine Sodium (Synthroid -) 75 mcg PO DAILY@0700 [facility] Last Admin: 01/23/20 06:27 Dose: 75 mcg Documented by: Lidocaine (Lidoderm Patch -) 1 patch TP DAILY@1630 PRN PRN Reason: PAIN Last Admin: 01/21/20 10:15 Dose: 1 patch Documented by: Miscellaneous (Lidoderm Patch Removal) 1 each MC DAILY@0430 [facility] Last Admin: 01/23/20 04:45 Dose: 1 each Documented by: Multivitamins/Minerals (Theragran-M) 1 each PO DAILY [facility] Last Admin: 01/22/20 10:11 Dose: Not Given Documented by: Nystatin (Nystop Powder -) 1 applic TP BID [facility] Last Admin: 01/22/20 23:00 Dose: 1 applic Documented by: Polyethylene Glycol (Miralax (For Daily Use) -) 17 gm PO BID PRN PRN Reason: CONSTIPATION Pregabalin (Lyrica -) 50 mg PO [facility] Last Admin: 01/22/20 21:46 Dose: 50 mg Documented by: Rosuvastatin Calcium (Crestor -) 10 mg PO [facility] Last Admin: 01/22/20 21:46 Dose: 10 mg Documented by: Tamsulosin HCl (Flomax -) 0.4 mg PO [facility] Last Admin: 01/22/20 21:46 Dose: 0.4 mg Documented by: Zinc Oxide (Desitin Diaper Rash Oint -) 1 applic TP ASDIR PRN PRN Reason: HYGEINE - Objective Vital Signs: Vital Signs Temperature 97.2 F L 01/23/20 05:14 Pulse Rate 72 01/23/20 05:14 Respiratory Rate 18 01/23/20 05:14 Blood Pressure 105/52 L 01/23/20 05:14 O2 Sat by Pulse Oximetry (%) 100 01/22/20 21:00 Constitutional: Yes: No Distress, Calm, Cachectic, Thin Neck: Yes: Supple Cardiovascular: Yes: Regular Rate and Rhythm Respiratory: Yes: Diminished, On Venti-Mask, SOB Gastrointestinal: Yes: Soft, Hypoactive Bowel Sounds Labs: CBC, BMP 01/21/20 09:35 01/23/20 08:04 INR, PTT INR 1.26 (0.83-1.09) H 01/13/20 01:24 Assessment/Plan Problem List - Problems (1) Weakness Code(s): R53.1 - WEAKNESS (2) Acute on chronic systolic (congestive) heart failure Code(s): I50.23 - ACUTE ON CHRONIC SYSTOLIC (CONGESTIVE) HEART FAILURE (3) CAD (coronary artery disease) Code(s): I25.10 - ATHSCL HEART DISEASE OF [place] CORONARY ARTERY W/O ANG PCTRS Qualifiers: Coronary Disease-Associated Artery/Lesion type: [place] artery [place] vs. transplanted heart: [place] heart Associated angina: without angina Qualified Code(s): I25.10 - Atherosclerotic heart disease of [place] coronary artery without angina pectoris (4) CKD (chronic kidney disease) Code(s): N18.9 - CHRONIC KIDNEY DISEASE, UNSPECIFIED Qualifiers: Chronic kidney disease stage: stage 3 (moderate) Qualified Code(s): N18.3 - Chronic kidney disease, stage 3 (moderate) (5) Hx of CABG Code(s): Z95.1 - PRESENCE OF AORTOCORONARY BYPASS GRAFT (6) Hypercholesterolemia Code(s): E78.0 - PURE HYPERCHOLESTEROLEMIA * DO NOT USE * (7) Hypothyroidism Code(s): E03.9 - HYPOTHYROIDISM, UNSPECIFIED Qualifiers: Hypothyroidism type: unspecified Qualified Code(s): E03.9 - Hypothyroidism, unspecified (8) ICD (implantable cardioverter-defibrillator) in place Code(s): Z95.810 - PRESENCE OF AUTOMATIC (IMPLANTABLE) CARDIAC DEFIBRILLATOR (9) Pleural effusion Code(s): J90 - PLEURAL EFFUSION, NOT ELSEWHERE CLASSIFIED Assessment/Plan 12/27/[address]: Large bilateral pleural effusion with compressive ATX R>L, no pulm masses, mild mediastinal LAD unchanged from 02/25/2019 12/27/2019 CXR Large right effusion, mild left 07/21/2016 echocardiography revealed moderately dilated LV with mild-moderate decrease in LV function, pacer RV, mild LAE, moderate MR, mild TR 08/02/2018 echocardiography revealed mild to moderately decreased LVEF 40-45%, normal RV size and function, mild LAE, mild MR, trace TR and AR 1. Gross hematuria, dysuria, suspected cystitis 2. 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 Acute on chronic systolic/diastolic failure with bilateral effusion, worsened SOB 4. UTI 5. CAD post CABG, angina pectoris 6. HTN 7. NIDDM 8. Hypercholesterolemia 9. 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 Carotid stenosis 11. Hypothyroidism 12. PAD post [employer] and amputation (TMA) 13. Macrocytic anemia 14. Thrombocytopenia 15. Sacral decubiti ulcer 16. Hypernatremia resolved 17. Moderate right pleural effusion PLAN: 1. Monitor Hgb post transfusion. Monitor renal function and electrolytes 2. Decreased Furosemide 40 mg IV QD and monitor diuretic response, renal recovery and electrolytes 3. Restart ASA 81 mg QD pending hemostasis. Continue Carvedilol 3.125 mg BID and Rosuvastatin 10 mg QHS. Not on ARB due to CKD 4. Completed empiric antibiotic course, wean O2 to maintain saO2>90% 5. Pulmonary input noted regarding diagnostic thoracentesis and its risk for the patient, mechanical DVT prophylaxis
[2020-01-23] MEDS: BACITRACIN 15 GM TUBE TOPICAL OINTMENT TP SCH (09:42)
[2020-01-23] MEDS: AMOXICILLIN 500 MG CAPSULE (FP) PO SCH ×2 (09:42→21:33)
[2020-01-23] MEDS: FOLIC ACID 1 MG TABLET (FP) PO SCH (09:43)
[2020-01-23] MEDS: CARVEDILOL 3.125 MG TABLET (FP) PO SCH ×2 (09:43→21:27)
[2020-01-23] MEDS: FAMOTIDINE 20 MG TABLET PO SCH (09:43)
[2020-01-23] MEDS: NYSTATIN POWDER 100,000 UNITS/GM - 15 GM TOPICAL POWDER TP SCH ×2 (09:43→21:36)
[2020-01-23] MEDS: FINASTERIDE 5 MG TABLET (FP) PO SCH (09:44)
[2020-01-23] MEDS: CHOLECALCIFEROL (VIT D3) 1,000 UNIT (25 MCG) TABLET PO SCH (09:44)
[2020-01-23] MEDS: MULTIVITAMINS THER W-MINERALS COMBO TABLET (FP) PO SCH (09:44)
[2020-01-23] MEDS: ASCORBIC ACID 500 MG TABLET (FP) PO SCH (09:44)
[2020-01-23] MEDS: FUROSEMIDE 40 MG/4 ML INJECTABLE VIAL IVPUSH SCH (09:45)
--- NOTE | 2020-01-23 11:17 | PN ---
Progress Note (short form) - Note Progress Note: Lethargic but arousable. Less tachypneic today but remains mildly tachypneic at rest on VM O2. No acute events overnight. Intake & Output 01/20/20 01/21/20 01/22/20 01/23/20 23:59 23:59 23:59 23:59 Intake Total 750 170 180 Balance 750 170 180 Weight 135 lb 4.8 oz 136 lb 134 lb 6 oz 120 lb Last Vital Signs Temp Pulse Resp BP Pulse Ox 97.2 F L 72 18 105/52 L 96 01/23/20 05:14 01/23/20 05:14 01/23/20 05:14 01/23/20 05:14 01/23/20 10:00 Active Medications Acetaminophen (Tylenol -) 650 mg PO Q6H PRN PRN Reason: PAIN SCALE 1-6 Amino Acids (Prosource No Carb Liquid Pkt) 30 ml PO BID@0800,1730 [facility] Last Admin: 01/23/20 09:36 Dose: Not Given Documented by: Amoxicillin (Amoxicillin -) 500 mg PO BID [facility] Last Admin: 01/23/20 09:42 Dose: Not Given Documented by: Ascorbic Acid (Vitamin C -) 500 mg PO DAILY [facility] Last Admin: 01/23/20 09:44 Dose: Not Given Documented by: Bacitracin (Bacitracin -) 1 applic TP DAILY [facility] Last Admin: 01/23/20 09:42 Dose: 1 applic Documented by: Carvedilol (Coreg -) 3.125 mg PO BID [facility] Last Admin: 01/23/20 09:43 Dose: Not Given Documented by: Cholecalciferol (Vitamin D3 -) 1,000 unit PO DAILY [facility] Last Admin: 01/23/20 09:44 Dose: Not Given Documented by: Famotidine (Pepcid -) 20 mg PO DAILY [facility] Last Admin: 01/23/20 09:43 Dose: Not Given Documented by: Fentanyl (Sublimaze Injection -) 25 mcg IVPUSH [id number] PRN PRN Reason: PAIN-PACU ORDER X 4 DOSES ONLY Finasteride (Proscar -) 5 mg PO DAILY [facility] Last Admin: 01/23/20 09:44 Dose: Not Given Documented by: Folic Acid (Folic Acid -) 1 mg PO DAILY [facility] Last Admin: 01/23/20 09:43 Dose: Not Given Documented by: Furosemide (Lasix Injection -) 40 mg IVPUSH DAILY [facility] Last Admin: 01/23/20 09:45 Dose: 40 mg Documented by: Levothyroxine Sodium (Synthroid -) 75 mcg PO DAILY@0700 [facility] Last Admin: 01/23/20 06:27 Dose: 75 mcg Documented by: Lidocaine (Lidoderm Patch -) 1 patch TP DAILY@1630 PRN PRN Reason: PAIN Last Admin: 01/21/20 10:15 Dose: 1 patch Documented by: Miscellaneous (Lidoderm Patch Removal) 1 each MC DAILY@0430 [facility] Last Admin: 01/23/20 04:45 Dose: 1 each Documented by: Multivitamins/Minerals (Theragran-M) 1 each PO DAILY [facility] Last Admin: 01/23/20 09:44 Dose: Not Given Documented by: Nystatin (Nystop Powder -) 1 applic TP BID [facility] Last Admin: 01/23/20 09:43 Dose: 1 applic Documented by: Polyethylene Glycol (Miralax (For Daily Use) -) 17 gm PO BID PRN PRN Reason: CONSTIPATION Pregabalin (Lyrica -) 50 mg PO HS [facility] Last Admin: 01/22/20 21:46 Dose: 50 mg Documented by: Rosuvastatin Calcium (Crestor -) 10 mg PO [facility] Last Admin: 01/22/20 21:46 Dose: 10 mg Documented by: Tamsulosin HCl (Flomax -) 0.4 mg PO [facility] Last Admin: 01/22/20 21:46 Dose: 0.4 mg Documented by: Zinc Oxide (Desitin Diaper Rash Oint -) 1 applic TP ASDIR PRN PRN Reason: HYGEINE Constitutional: Yes: Lethargic but arousable, less agitated, mildly tachypneic a t rest Eyes: Yes: Conjunctiva Clear, EOM Intact HENT: Yes: Atraumatic, Normocephalic Neck: Yes: Supple, Trachea Midline Cardiovascular: Yes: Tachycardia Respiratory: Yes: Cough, Diminished, On Venti-Mask, Rales, Rhonchi, Tachypnea. No: Stridor, Wheezes ...Inspection: Yes: WNL ...Clubbing: No Gastrointestinal: Yes: Normal Bowel Sounds, Soft Breast(s): Yes: WNL Musculoskeletal: Yes: WNL Extremities: Yes: WNL Edema: Yes Peripheral Pulses WNL: Yes Integumentary: Yes: WNL Neurological: Yes: Other (agitated ) Labs: Laboratory Results - last 24 hr 01/22/20 01/22/20 01/23/20 16:49 21:07 06:28 Sodium Potassium Chloride Carbon Dioxide Anion Gap BUN Creatinine Est GFR (CKD-EPI)AfAm Est GFR (CKD-EPI)NonAf POC Glucometer 143 140 105 Random Glucose Calcium Phosphorus Magnesium 01/23/20 08:04 Sodium 144 Potassium 3.7 Chloride 105 Carbon Dioxide 32 Anion Gap 7 L BUN 71.4 H Creatinine 2.5 H Est GFR (CKD-EPI)AfAm 25.61 Est GFR (CKD-EPI)NonAf 22.10 POC Glucometer Random Glucose 93 Calcium 7.9 L Phosphorus 4.0 Magnesium 2.1 Imaging - Results Chest X-ray: Report Reviewed, Image Reviewed Problem List - Problems (1) CKD (chronic kidney disease) Code(s): N18.9 - CHRONIC KIDNEY DISEASE, UNSPECIFIED Qualifiers: Chronic kidney disease stage: unspecified stage Qualified Code(s): N18.9 - Chronic kidney disease, unspecified (2) Hematuria Code(s): R31.9 - HEMATURIA, UNSPECIFIED Qualifiers: Hematuria type: gross Qualified Code(s): R31.0 - Gross hematuria (3) ASHLYN (acute kidney injury) Code(s): N17.9 - ACUTE KIDNEY FAILURE, UNSPECIFIED (4) ASHD (arteriosclerotic heart disease) Code(s): I25.10 - ATHSCL HEART DISEASE OF [place] CORONARY ARTERY W/O ANG PCTRS (5) Anemia Code(s): D64.9 - ANEMIA, UNSPECIFIED Qualifiers: Anemia type: unspecified type Qualified Code(s): D64.9 - Anemia, unspecified (6) Anxiety Code(s): F41.9 - ANXIETY DISORDER, UNSPECIFIED (7) BPH (benign prostatic hyperplasia) Code(s): N40.0 - BENIGN PROSTATIC HYPERPLASIA WITHOUT LOWER URINRY TRACT SYMP (8) Bilateral leg edema Code(s): R60.0 - LOCALIZED EDEMA (9) CAD (coronary artery disease) Code(s): I25.10 - ATHSCL HEART DISEASE OF [place] CORONARY ARTERY W/O ANG PCTRS Qualifiers: Coronary Disease-Associated Artery/Lesion type: [place] artery [place] vs. transplanted heart: [place] heart Associated angina: without angina Qualified Code(s): I25.10 - Atherosclerotic heart disease of [place] coronary artery without angina pectoris (10) CHF (congestive heart failure) Code(s): I50.9 - HEART FAILURE, UNSPECIFIED (11) CHF exacerbation Code(s): I50.9 - HEART FAILURE, UNSPECIFIED (12) COPD (chronic obstructive pulmonary disease) Code(s): J44.9 - CHRONIC OBSTRUCTIVE PULMONARY DISEASE, UNSPECIFIED Qualifiers: COPD type: unspecified COPD Qualified Code(s): J44.9 - Chronic obstructive pulmonary disease, unspecified (13) Carotid artery disease Code(s): I77.9 - DISORDER OF ARTERIES AND ARTERIOLES, UNSPECIFIED (14) Chronic renal failure Code(s): N18.9 - CHRONIC KIDNEY DISEASE, UNSPECIFIED (15) Chronic systolic heart failure Code(s): I50.22 - CHRONIC SYSTOLIC (CONGESTIVE) HEART FAILURE (16) Cough Code(s): R05 - COUGH (17) Diabetes mellitus Code(s): E11.9 - TYPE 2 DIABETES MELLITUS WITHOUT COMPLICATIONS (18) Dyspnea Code(s): R06.00 - DYSPNEA, UNSPECIFIED Qualifiers: (19) [place] (hard of hearing) Code(s): H91.90 - UNSPECIFIED HEARING LOSS, UNSPECIFIED EAR (20) HTN (hypertension) Code(s): I10 - ESSENTIAL (PRIMARY) HYPERTENSION Qualifiers: (21) History of ischemic colitis Code(s): Z87.19 - PERSONAL HISTORY OF OTHER DISEASES OF THE DIGESTIVE SYSTEM (22) Hx of BKA Code(s): Z89.519 - ACQUIRED ABSENCE OF UNSPECIFIED LEG BELOW KNEE (23) Hx of CABG Code(s): Z95.1 - PRESENCE OF AORTOCORONARY BYPASS GRAFT (24) Hypercholesterolemia Code(s): E78.0 - PURE HYPERCHOLESTEROLEMIA * DO NOT USE * (25) Hypoalbuminemia Code(s): E88.09 - OTH DISORDERS OF PLASMA-PROTEIN METABOLISM, NEC (26) Hypothyroidism Code(s): E03.9 - HYPOTHYROIDISM, UNSPECIFIED Qualifiers: Hypothyroidism type: unspecified Qualified Code(s): E03.9 - Hypothyroidism, unspecified (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 Code(s): Z95.810 - PRESENCE OF AUTOMATIC (IMPLANTABLE) CARDIAC DEFIBRILLATOR (28) PVD (peripheral vascular disease) Code(s): I73.9 - PERIPHERAL VASCULAR DISEASE, UNSPECIFIED (29) Peripheral arterial disease Code(s): I73.9 - PERIPHERAL VASCULAR DISEASE, UNSPECIFIED (30) Pleural effusion Code(s): J90 - PLEURAL EFFUSION, NOT ELSEWHERE CLASSIFIED (31) Urinary retention Code(s): R33.9 - RETENTION OF URINE, UNSPECIFIED Assessment/Plan IV Lasix 40mg OD VM O2 to maintain saturation Aspiration precautions Would not perform thoracentesis now, high risk for PTX given current agitation and have room for diuresis Follow CXR Dr Diggs Problem List - Problems (1) CKD (chronic kidney disease) Code(s): N18.9 - CHRONIC KIDNEY DISEASE, UNSPECIFIED Qualifiers: Chronic kidney disease stage: unspecified stage Qualified Code(s): N18.9 - Chronic kidney disease, unspecified (2) Hematuria Code(s): R31.9 - HEMATURIA, UNSPECIFIED Qualifiers: Hematuria type: gross Qualified Code(s): R31.0 - Gross hematuria (3) ASHLYN (acute kidney injury) Code(s): N17.9 - ACUTE KIDNEY FAILURE, UNSPECIFIED (4) ASHD (arteriosclerotic heart disease) Code(s): I25.10 - ATHSCL HEART DISEASE OF [place] CORONARY ARTERY W/O ANG PCTRS (5) Anemia Code(s): D64.9 - ANEMIA, UNSPECIFIED Qualifiers: Anemia type: unspecified type Qualified Code(s): D64.9 - Anemia, unspecified (6) Anxiety Code(s): F41.9 - ANXIETY DISORDER, UNSPECIFIED (7) BPH (benign prostatic hyperplasia) Code(s): N40.0 - BENIGN PROSTATIC HYPERPLASIA WITHOUT LOWER URINRY TRACT SYMP (8) Bilateral leg edema Code(s): R60.0 - LOCALIZED EDEMA (9) CAD (coronary artery disease) Code(s): I25.10 - ATHSCL HEART DISEASE OF [place] CORONARY ARTERY W/O ANG PCTRS Qualifiers: Coronary Disease-Associated Artery/Lesion type: [place] artery [place] vs. transplanted heart: [place] heart Associated angina: without angina Qualified Code(s): I25.10 - Atherosclerotic heart disease of [place] coronary artery without angina pectoris (10) CHF (congestive heart failure) Code(s): I50.9 - HEART FAILURE, UNSPECIFIED (11) CHF exacerbation Code(s): I50.9 - HEART FAILURE, UNSPECIFIED (12) COPD (chronic obstructive pulmonary disease) Code(s): J44.9 - CHRONIC OBSTRUCTIVE PULMONARY DISEASE, UNSPECIFIED Qualifiers: COPD type: unspecified COPD Qualified Code(s): J44.9 - Chronic obstructive pulmonary disease, unspecified (13) Carotid artery disease Code(s): I77.9 - DISORDER OF ARTERIES AND ARTERIOLES, UNSPECIFIED (14) Chronic renal failure Code(s): N18.9 - CHRONIC KIDNEY DISEASE, UNSPECIFIED (15) Chronic systolic heart failure Code(s): I50.22 - CHRONIC SYSTOLIC (CONGESTIVE) HEART FAILURE (16) Cough Code(s): R05 - COUGH (17) Diabetes mellitus Code(s): E11.9 - TYPE 2 DIABETES MELLITUS WITHOUT COMPLICATIONS (18) Dyspnea Code(s): R06.00 - DYSPNEA, UNSPECIFIED Qualifiers: (19) [place] (hard of hearing) Code(s): H91.90 - UNSPECIFIED HEARING LOSS, UNSPECIFIED EAR (20) HTN (hypertension) Code(s): I10 - ESSENTIAL (PRIMARY) HYPERTENSION Qualifiers: (21) History of ischemic colitis Code(s): Z87.19 - PERSONAL HISTORY OF OTHER DISEASES OF THE DIGESTIVE SYSTEM (22) Hx of BKA Code(s): Z89.519 - ACQUIRED ABSENCE OF UNSPECIFIED LEG BELOW KNEE (23) Hx of CABG Code(s): Z95.1 - PRESENCE OF AORTOCORONARY BYPASS GRAFT (24) Hypercholesterolemia Code(s): E78.0 - PURE HYPERCHOLESTEROLEMIA * DO NOT USE * (25) Hypoalbuminemia Code(s): E88.09 - OTH DISORDERS OF PLASMA-PROTEIN METABOLISM, NEC (26) Hypothyroidism Code(s): E03.9 - HYPOTHYROIDISM, UNSPECIFIED Qualifiers: Hypothyroidism type: unspecified Qualified Code(s): E03.9 - Hypothyroidism, unspecified (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 Code(s): Z95.810 - PRESENCE OF AUTOMATIC (IMPLANTABLE) CARDIAC DEFIBRILLATOR (28) PVD (peripheral vascular disease) Code(s): I73.9 - PERIPHERAL VASCULAR DISEASE, UNSPECIFIED (29) Peripheral arterial disease Code(s): I73.9 - PERIPHERAL VASCULAR DISEASE, UNSPECIFIED (30) Pleural effusion Code(s): J90 - PLEURAL EFFUSION, NOT ELSEWHERE CLASSIFIED (31) Urinary retention Code(s): R33.9 - RETENTION OF URINE, UNSPECIFIED
[2020-01-23] MEDS: ACETAMINOPHEN 325 MG TABLET (FP) PO PRN (14:28)
[2020-01-23] MEDS ORDERED: EPOETIN ALFA 20,000 UNIT/1 ML VIAL SQ ONE (16:13)
--- NOTE | 2020-01-23 16:13 | PN ---
Progress Note, Physician Chief Complaint: Hematuria History of Present Illness: Seen and examined at the bedside more awake and alert today. Offers no acute complaints. Denies any shortness of breath, chest pain, abdominal pain, nausea, vomiting, diarrhea. Poor oral intake. Making urine. - Current Medication List Current Medications: Active Medications Acetaminophen (Tylenol -) 650 mg PO Q6H PRN PRN Reason: PAIN SCALE 1-6 Last Admin: 01/23/20 14:28 Dose: 650 mg Documented by: Amino Acids (Prosource No Carb Liquid Pkt) 30 ml PO BID@0800,1730 [facility] Last Admin: 01/23/20 09:36 Dose: Not Given Documented by: Amoxicillin (Amoxicillin -) 500 mg PO BID [facility] Last Admin: 01/23/20 09:42 Dose: Not Given Documented by: Ascorbic Acid (Vitamin C -) 500 mg PO DAILY [facility] Last Admin: 01/23/20 09:44 Dose: Not Given Documented by: Bacitracin (Bacitracin -) 1 applic TP DAILY [facility] Last Admin: 01/23/20 09:42 Dose: 1 applic Documented by: Carvedilol (Coreg -) 3.125 mg PO BID [facility] Last Admin: 01/23/20 09:43 Dose: Not Given Documented by: Cholecalciferol (Vitamin D3 -) 1,000 unit PO DAILY [facility] Last Admin: 01/23/20 09:44 Dose: Not Given Documented by: Famotidine (Pepcid -) 20 mg PO DAILY [facility] Last Admin: 01/23/20 09:43 Dose: Not Given Documented by: Fentanyl (Sublimaze Injection -) 25 mcg IVPUSH [id number] PRN PRN Reason: PAIN-PACU ORDER X 4 DOSES ONLY Finasteride (Proscar -) 5 mg PO DAILY [facility] Last Admin: 01/23/20 09:44 Dose: Not Given Documented by: Folic Acid (Folic Acid -) 1 mg PO DAILY [facility] Last Admin: 01/23/20 09:43 Dose: Not Given Documented by: Furosemide (Lasix Injection -) 40 mg IVPUSH DAILY [facility] Last Admin: 01/23/20 09:45 Dose: 40 mg Documented by: Levothyroxine Sodium (Synthroid -) 75 mcg PO DAILY@0700 [facility] Last Admin: 01/23/20 06:27 Dose: 75 mcg Documented by: Lidocaine (Lidoderm Patch -) 1 patch TP DAILY@1630 PRN PRN Reason: PAIN Last Admin: 01/21/20 10:15 Dose: 1 patch Documented by: Miscellaneous (Lidoderm Patch Removal) 1 each MC DAILY@0430 [facility] Last Admin: 01/23/20 04:45 Dose: 1 each Documented by: Multivitamins/Minerals (Theragran-M) 1 each PO DAILY [facility] Last Admin: 01/23/20 09:44 Dose: Not Given Documented by: Nystatin (Nystop Powder -) 1 applic TP BID [facility] Last Admin: 01/23/20 09:43 Dose: 1 applic Documented by: Polyethylene Glycol (Miralax (For Daily Use) -) 17 gm PO BID PRN PRN Reason: CONSTIPATION Pregabalin (Lyrica -) 50 mg PO [facility] Last Admin: 01/22/20 21:46 Dose: 50 mg Documented by: Rosuvastatin Calcium (Crestor -) 10 mg PO [facility] Last Admin: 01/22/20 21:46 Dose: 10 mg Documented by: Tamsulosin HCl (Flomax -) 0.4 mg PO [facility] Last Admin: 01/22/20 21:46 Dose: 0.4 mg Documented by: Zinc Oxide (Desitin Diaper Rash Oint -) 1 applic TP ASDIR PRN PRN Reason: HYGEINE - Objective Vital Signs: Vital Signs Temperature 97.2 F L 01/23/20 05:14 Pulse Rate 72 01/23/20 05:14 Respiratory Rate 18 01/23/20 05:14 Blood Pressure 105/52 L 01/23/20 05:14 O2 Sat by Pulse Oximetry (%) 96 01/23/20 10:00 Constitutional: Yes: No Distress HENT: Yes: Atraumatic Neck: Yes: Supple Cardiovascular: Yes: Regular Rate and Rhythm Respiratory: Yes: Diminished, On Nasal O2 Gastrointestinal: Yes: Soft Extremities: No: Cyanosis Edema: No Labs: CBC, BMP 01/21/20 09:35 01/23/20 08:04 INR, PTT INR 1.26 (0.83-1.09) H 01/13/20 01:24 Assessment/Plan 89 year old male with history of CKD stage 4 (baseline Cr 1.7-2.2), CAD s/p CABG, BPH, CHF 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 1. CKD stage 4 2. Dysuria/Suspected cystitis 3. CAD s/p CABG 4. 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 Acute on chronic anemia renal function slowly improving. There are no overt electrolyte or acid based disturbance is noted. Continue IV Lasix once daily for now as is he still displays some signs of hypervolemia. Titrate oxygen as needed. Pulmonary and cardiology follow-up. hemoglobin stable.we will give Epogen 20,000 units 1 for management of anemia. Trend renal function and electrolytes daily. Oscar Madrid DO
--- NOTE | 2020-01-23 16:15 | PN ---
Progress Note (short form) - Note Progress Note: [facility] Pt seen and examined. Sacral ulcer is clean with erythema. Left TMA stump has erythema wiht small wound. Santyl to all wounds daily. NO need for any debridement. at bedside present. Lorenzo Youngblood DO
--- NOTE | 2020-01-23 16:18 | PN ---
Progress Note, Physician Chief Complaint: poor po intake consults appreciated - Current Medication List Current Medications: Active Medications Acetaminophen (Tylenol -) 650 mg PO Q6H PRN PRN Reason: PAIN SCALE 1-6 Last Admin: 01/23/20 14:28 Dose: 650 mg Documented by: Amino Acids (Prosource No Carb Liquid Pkt) 30 ml PO BID@0800,1730 [facility] Last Admin: 01/23/20 09:36 Dose: Not Given Documented by: Amoxicillin (Amoxicillin -) 500 mg PO BID [facility] Last Admin: 01/23/20 09:42 Dose: Not Given Documented by: Ascorbic Acid (Vitamin C -) 500 mg PO DAILY [facility] Last Admin: 01/23/20 09:44 Dose: Not Given Documented by: Bacitracin (Bacitracin -) 1 applic TP DAILY [facility] Last Admin: 01/23/20 09:42 Dose: 1 applic Documented by: Carvedilol (Coreg -) 3.125 mg PO BID [facility] Last Admin: 01/23/20 09:43 Dose: Not Given Documented by: Cholecalciferol (Vitamin D3 -) 1,000 unit PO DAILY [facility] Last Admin: 01/23/20 09:44 Dose: Not Given Documented by: Collagenase (Santyl -) 1 applic TP DAILY [facility]; Protocol Famotidine (Pepcid -) 20 mg PO DAILY [facility] Last Admin: 01/23/20 09:43 Dose: Not Given Documented by: Fentanyl (Sublimaze Injection -) 25 mcg IVPUSH [id number] PRN PRN Reason: PAIN-PACU ORDER X 4 DOSES ONLY Finasteride (Proscar -) 5 mg PO DAILY [facility] Last Admin: 01/23/20 09:44 Dose: Not Given Documented by: Folic Acid (Folic Acid -) 1 mg PO DAILY [facility] Last Admin: 01/23/20 09:43 Dose: Not Given Documented by: Furosemide (Lasix Injection -) 40 mg IVPUSH DAILY [facility] Last Admin: 01/23/20 09:45 Dose: 40 mg Documented by: Levothyroxine Sodium (Synthroid -) 75 mcg PO DAILY@0700 [facility] Last Admin: 01/23/20 06:27 Dose: 75 mcg Documented by: Lidocaine (Lidoderm Patch -) 1 patch TP DAILY@1630 PRN PRN Reason: PAIN Last Admin: 01/21/20 10:15 Dose: 1 patch Documented by: Miscellaneous (Lidoderm Patch Removal) 1 each MC DAILY@0430 [facility] Last Admin: 01/23/20 04:45 Dose: 1 each Documented by: Multivitamins/Minerals (Theragran-M) 1 each PO DAILY [facility] Last Admin: 01/23/20 09:44 Dose: Not Given Documented by: Nystatin (Nystop Powder -) 1 applic TP BID [facility] Last Admin: 01/23/20 09:43 Dose: 1 applic Documented by: Polyethylene Glycol (Miralax (For Daily Use) -) 17 gm PO BID PRN PRN Reason: CONSTIPATION Pregabalin (Lyrica -) 50 mg PO [facility] Last Admin: 01/22/20 21:46 Dose: 50 mg Documented by: Rosuvastatin Calcium (Crestor -) 10 mg PO [facility] Last Admin: 01/22/20 21:46 Dose: 10 mg Documented by: Tamsulosin HCl (Flomax -) 0.4 mg PO [facility] Last Admin: 01/22/20 21:46 Dose: 0.4 mg Documented by: Zinc Oxide (Desitin Diaper Rash Oint -) 1 applic TP ASDIR PRN PRN Reason: HYGEINE - Objective Vital Signs: Vital Signs Temperature 97.2 F L 01/23/20 05:14 Pulse Rate 72 01/23/20 05:14 Respiratory Rate 18 01/23/20 05:14 Blood Pressure 105/52 L 01/23/20 05:14 O2 Sat by Pulse Oximetry (%) 96 01/23/20 10:00 Constitutional: Yes: No Distress, Calm Eyes: Yes: Conjunctiva Clear HENT: Yes: Atraumatic Neck: Yes: Supple Cardiovascular: Yes: Regular Rate and Rhythm Respiratory: Yes: Diminished Gastrointestinal: Yes: Soft. No: Tenderness Musculoskeletal: No: Joint Stiffness, Joint Swelling Extremities: No: Cold, Cool Edema: No Integumentary: Yes: Pressure Ulcer. No: Rash, Venous Stasis Changes Neurological: Yes: Alert. No: Oriented Psychiatric: Yes: Alert. No: Oriented, Agitated Labs: CBC, BMP 01/21/20 09:35 01/23/20 08:04 INR, PTT INR 1.26 (0.83-1.09) H 01/13/20 01:24 - ....Imaging Other: Report Reviewed Assessment/Plan 89 yo M history CHF s/p AICD, CAD s/p stents, HTN, HL, CKD, BPH, hypothyroid admitted with hematuria, dysuria and passing clots; UCx enteroccocus; s/p Cystoscopy hematuria stopped; on po ATB CHF / fluid OL on IV lasix; borderline hypotensive; decreased po intake renal and cardio f/u; CXR; labs; pulm f/u palliative care eval DVT pfx - can not use sq heparin due to bleeding decubs PFX turn q1 hour; wounds care; protein malnutrition - added po AA d/w pt's all the above; she asked for DNR DNI per pt's wishes also for eval for home hospice per pt's wishes to go home; she does not want [place] [facility]; d/w D staff.
[2020-01-23] MEDS: COLLAGENASE CLOSTRIDIUM HIST. 30 GRAMS TUBE TP SCH (18:06)
[2020-01-23] MEDS: ROSUVASTATIN CA 10 MG TABLET (FP) PO SCH (21:33)
[2020-01-23] MEDS: TAMSULOSIN HCL 0.4 MG CAP PO SCH (21:36)
[2020-01-24] MEDS: LIDOCAINE PATCH REMOVAL MC SCH (04:03)
[2020-01-24] MEDS: LEVOTHYROXINE NA 75 MCG TABLET (FP) PO SCH (06:25)
--- NOTE | 2020-01-24 07:58 | PN ---
Progress Note, Physician History of Present Illness: PULMONARY MORE AWAKE,MILDLY TACHYPNEIC ON 40% VM - Current Medication List Current Medications: Active Medications Acetaminophen (Tylenol -) 650 mg PO Q6H PRN PRN Reason: PAIN SCALE 1-6 Last Admin: 01/23/20 14:28 Dose: 650 mg Documented by: Amino Acids (Prosource No Carb Liquid Pkt) 30 ml PO BID@0800,1730 [facility] Last Admin: 01/23/20 17:47 Dose: Not Given Documented by: Amoxicillin (Amoxicillin -) 500 mg PO BID [facility] Last Admin: 01/23/20 21:33 Dose: 500 mg Documented by: Ascorbic Acid (Vitamin C -) 500 mg PO DAILY [facility] Last Admin: 01/23/20 09:44 Dose: Not Given Documented by: Bacitracin (Bacitracin -) 1 applic TP DAILY [facility] Last Admin: 01/23/20 09:42 Dose: 1 applic Documented by: Carvedilol (Coreg -) 3.125 mg PO BID [facility] Last Admin: 01/23/20 21:27 Dose: Not Given Documented by: Cholecalciferol (Vitamin D3 -) 1,000 unit PO DAILY [facility] Last Admin: 01/23/20 09:44 Dose: Not Given Documented by: Collagenase (Santyl -) 1 applic TP DAILY [facility]; Protocol Last Admin: 01/23/20 18:06 Dose: 1 applic Documented by: Famotidine (Pepcid -) 20 mg PO DAILY [facility] Last Admin: 01/23/20 09:43 Dose: Not Given Documented by: Fentanyl (Sublimaze Injection -) 25 mcg IVPUSH [id number] PRN PRN Reason: PAIN-PACU ORDER X 4 DOSES ONLY Finasteride (Proscar -) 5 mg PO DAILY [facility] Last Admin: 01/23/20 09:44 Dose: Not Given Documented by: Folic Acid (Folic Acid -) 1 mg PO DAILY [facility] Last Admin: 01/23/20 09:43 Dose: Not Given Documented by: Furosemide (Lasix Injection -) 40 mg IVPUSH DAILY [facility] Last Admin: 01/23/20 09:45 Dose: 40 mg Documented by: Levothyroxine Sodium (Synthroid -) 75 mcg PO DAILY@0700 [facility] Last Admin: 01/24/20 06:25 Dose: 75 mcg Documented by: Lidocaine (Lidoderm Patch -) 1 patch TP DAILY@1630 PRN PRN Reason: PAIN Last Admin: 01/21/20 10:15 Dose: 1 patch Documented by: Miscellaneous (Lidoderm Patch Removal) 1 each MC DAILY@0430 [facility] Last Admin: 01/24/20 04:03 Dose: Not Given Documented by: Multivitamins/Minerals (Theragran-M) 1 each PO DAILY [facility] Last Admin: 01/23/20 09:44 Dose: Not Given Documented by: Nystatin (Nystop Powder -) 1 applic TP BID [facility] Last Admin: 01/23/20 21:36 Dose: 1 applic Documented by: Polyethylene Glycol (Miralax (For Daily Use) -) 17 gm PO BID PRN PRN Reason: CONSTIPATION Rosuvastatin Calcium (Crestor -) 10 mg PO HS [facility] Last Admin: 01/23/20 21:33 Dose: 10 mg Documented by: Tamsulosin HCl (Flomax -) 0.4 mg PO [facility] Last Admin: 01/23/20 21:36 Dose: 0.4 mg Documented by: Zinc Oxide (Desitin Diaper Rash Oint -) 1 applic TP ASDIR PRN PRN Reason: HYGEINE - Objective Vital Signs: Vital Signs Temperature 97.6 F 01/24/20 06:00 Pulse Rate 72 01/24/20 06:00 Respiratory Rate 18 01/24/20 06:00 Blood Pressure 99/50 L 01/24/20 06:00 O2 Sat by Pulse Oximetry (%) 99 01/23/20 21:00 Constitutional: Yes: Calm, Thin, Other (MILDLY TACHYPNEIC) Eyes: Yes: WNL HENT: Yes: WNL Neck: Yes: WNL Cardiovascular: Yes: Regular Rate and Rhythm, S1, S2 Respiratory: Yes: Diminished Gastrointestinal: Yes: Normal Bowel Sounds, Soft Extremities: Yes: Other (CONTRACTED) Edema: No Labs: CBC, BMP Assessment/Plan Problem List - Problems (1) CKD (chronic kidney disease) Code(s): N18.9 - CHRONIC KIDNEY DISEASE, UNSPECIFIED Qualifiers: Chronic kidney disease stage: unspecified stage Qualified Code(s): N18.9 - Chronic kidney disease, unspecified (2) Hematuria Code(s): R31.9 - HEMATURIA, UNSPECIFIED Qualifiers: Hematuria type: gross Qualified Code(s): R31.0 - Gross hematuria (3) ASHLYN (acute kidney injury) Code(s): N17.9 - ACUTE KIDNEY FAILURE, UNSPECIFIED (4) ASHD (arteriosclerotic heart disease) Code(s): I25.10 - ATHSCL HEART DISEASE OF [place] CORONARY ARTERY W/O ANG PCTRS (5) Anemia Code(s): D64.9 - ANEMIA, UNSPECIFIED Qualifiers: Anemia type: unspecified type Qualified Code(s): D64.9 - Anemia, unspecified (6) Anxiety Code(s): F41.9 - ANXIETY DISORDER, UNSPECIFIED (7) BPH (benign prostatic hyperplasia) Code(s): N40.0 - BENIGN PROSTATIC HYPERPLASIA WITHOUT LOWER URINRY TRACT SYMP (8) Bilateral leg edema Code(s): R60.0 - LOCALIZED EDEMA (9) CAD (coronary artery disease) Code(s): I25.10 - ATHSCL HEART DISEASE OF [place] CORONARY ARTERY W/O ANG PCTRS Qualifiers: Coronary Disease-Associated Artery/Lesion type: [place] artery [place] vs. transplanted heart: [place] heart Associated angina: without angina Qualified Code(s): I25.10 - Atherosclerotic heart disease of [place] coronary artery without angina pectoris (10) CHF (congestive heart failure) Code(s): I50.9 - HEART FAILURE, UNSPECIFIED (11) CHF exacerbation Code(s): I50.9 - HEART FAILURE, UNSPECIFIED (12) COPD (chronic obstructive pulmonary disease) Code(s): J44.9 - CHRONIC OBSTRUCTIVE PULMONARY DISEASE, UNSPECIFIED Qualifiers: COPD type: unspecified COPD Qualified Code(s): J44.9 - Chronic obstructive pulmonary disease, unspecified (13) Carotid artery disease Code(s): I77.9 - DISORDER OF ARTERIES AND ARTERIOLES, UNSPECIFIED (14) Chronic renal failure Code(s): N18.9 - CHRONIC KIDNEY DISEASE, UNSPECIFIED (15) Chronic systolic heart failure Code(s): I50.22 - CHRONIC SYSTOLIC (CONGESTIVE) HEART FAILURE (16) Cough Code(s): R05 - COUGH (17) Diabetes mellitus Code(s): E11.9 - TYPE 2 DIABETES MELLITUS WITHOUT COMPLICATIONS (18) Dyspnea Code(s): R06.00 - DYSPNEA, UNSPECIFIED Qualifiers: (19) [place] (hard of hearing) Code(s): H91.90 - UNSPECIFIED HEARING LOSS, UNSPECIFIED EAR (20) HTN (hypertension) Code(s): I10 - ESSENTIAL (PRIMARY) HYPERTENSION Qualifiers: (21) History of ischemic colitis Code(s): Z87.19 - PERSONAL HISTORY OF OTHER DISEASES OF THE DIGESTIVE SYSTEM (22) Hx of BKA Code(s): Z89.519 - ACQUIRED ABSENCE OF UNSPECIFIED LEG BELOW KNEE (23) Hx of CABG Code(s): Z95.1 - PRESENCE OF AORTOCORONARY BYPASS GRAFT (24) Hypercholesterolemia Code(s): E78.0 - PURE HYPERCHOLESTEROLEMIA * DO NOT USE * (25) Hypoalbuminemia Code(s): E88.09 - OTH DISORDERS OF PLASMA-PROTEIN METABOLISM, NEC (26) Hypothyroidism Code(s): E03.9 - HYPOTHYROIDISM, UNSPECIFIED Qualifiers: Hypothyroidism type: unspecified Qualified Code(s): E03.9 - Hypothyroidism, unspecified (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 Code(s): Z95.810 - PRESENCE OF AUTOMATIC (IMPLANTABLE) CARDIAC DEFIBRILLATOR (28) PVD (peripheral vascular disease) Code(s): I73.9 - PERIPHERAL VASCULAR DISEASE, UNSPECIFIED (29) Peripheral arterial disease Code(s): I73.9 - PERIPHERAL VASCULAR DISEASE, UNSPECIFIED (30) Pleural effusion Code(s): J90 - PLEURAL EFFUSION, NOT ELSEWHERE CLASSIFIED (31) Urinary retention Code(s): R33.9 - RETENTION OF URINE, UNSPECIFIED Assessment/Plan IV Lasix 40mg BID VM O2 to maintain saturation Aspiration precautions Follow CXR DR NAVARRO Problem List - Problems (1) CKD (chronic kidney disease) Code(s): N18.9 - CHRONIC KIDNEY DISEASE, UNSPECIFIED Qualifiers: Chronic kidney disease stage: unspecified stage Qualified Code(s): N18.9 - Chronic kidney disease, unspecified (2) Hematuria Code(s): R31.9 - HEMATURIA, UNSPECIFIED Qualifiers: Hematuria type: gross Qualified Code(s): R31.0 - Gross hematuria (3) ASHLYN (acute kidney injury) Code(s): N17.9 - ACUTE KIDNEY FAILURE, UNSPECIFIED (4) ASHD (arteriosclerotic heart disease) Code(s): I25.10 - ATHSCL HEART DISEASE OF [place] CORONARY ARTERY W/O ANG PCTRS (5) Anemia Code(s): D64.9 - ANEMIA, UNSPECIFIED Qualifiers: Anemia type: unspecified type Qualified Code(s): D64.9 - Anemia, unspecified (6) Anxiety Code(s): F41.9 - ANXIETY DISORDER, UNSPECIFIED (7) BPH (benign prostatic hyperplasia) Code(s): N40.0 - BENIGN PROSTATIC HYPERPLASIA WITHOUT LOWER URINRY TRACT SYMP (8) Bilateral leg edema Code(s): R60.0 - LOCALIZED EDEMA (9) CAD (coronary artery disease) Code(s): I25.10 - ATHSCL HEART DISEASE OF [place] CORONARY ARTERY W/O ANG PCTRS Qualifiers: Coronary Disease-Associated Artery/Lesion type: [place] artery [place] vs. transplanted heart: [place] heart Associated angina: without angina Qualified Code(s): I25.10 - Atherosclerotic heart disease of [place] coronary artery without angina pectoris (10) CHF (congestive heart failure) Code(s): I50.9 - HEART FAILURE, UNSPECIFIED (11) CHF exacerbation Code(s): I50.9 - HEART FAILURE, UNSPECIFIED (12) COPD (chronic obstructive pulmonary disease) Code(s): J44.9 - CHRONIC OBSTRUCTIVE PULMONARY DISEASE, UNSPECIFIED Qualifiers: COPD type: unspecified COPD Qualified Code(s): J44.9 - Chronic obstructive pulmonary disease, unspecified (13) Carotid artery disease Code(s): I77.9 - DISORDER OF ARTERIES AND ARTERIOLES, UNSPECIFIED (14) Chronic renal failure Code(s): N18.9 - CHRONIC KIDNEY DISEASE, UNSPECIFIED (15) Chronic systolic heart failure Code(s): I50.22 - CHRONIC SYSTOLIC (CONGESTIVE) HEART FAILURE (16) Cough Code(s): R05 - COUGH (17) Diabetes mellitus Code(s): E11.9 - TYPE 2 DIABETES MELLITUS WITHOUT COMPLICATIONS (18) Dyspnea Code(s): R06.00 - DYSPNEA, UNSPECIFIED Qualifiers: (19) [place] (hard of hearing) Code(s): H91.90 - UNSPECIFIED HEARING LOSS, UNSPECIFIED EAR (20) HTN (hypertension) Code(s): I10 - ESSENTIAL (PRIMARY) HYPERTENSION Qualifiers: (21) History of ischemic colitis Code(s): Z87.19 - PERSONAL HISTORY OF OTHER DISEASES OF THE DIGESTIVE SYSTEM (22) Hx of BKA Code(s): Z89.519 - ACQUIRED ABSENCE OF UNSPECIFIED LEG BELOW KNEE (23) Hx of CABG Code(s): Z95.1 - PRESENCE OF AORTOCORONARY BYPASS GRAFT (24) Hypercholesterolemia Code(s): E78.0 - PURE HYPERCHOLESTEROLEMIA * DO NOT USE * (25) Hypoalbuminemia Code(s): E88.09 - OTH DISORDERS OF PLASMA-PROTEIN METABOLISM, NEC (26) Hypothyroidism Code(s): E03.9 - HYPOTHYROIDISM, UNSPECIFIED Qualifiers: Hypothyroidism type: unspecified Qualified Code(s): E03.9 - Hypothyroidism, unspecified (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 Code(s): Z95.810 - PRESENCE OF AUTOMATIC (IMPLANTABLE) CARDIAC DEFIBRILLATOR (28) PVD (peripheral vascular disease) Code(s): I73.9 - PERIPHERAL VASCULAR DISEASE, UNSPECIFIED (29) Peripheral arterial disease Code(s): I73.9 - PERIPHERAL VASCULAR DISEASE, UNSPECIFIED (30) Pleural effusion Code(s): J90 - PLEURAL EFFUSION, NOT ELSEWHERE CLASSIFIED (31) Urinary retention Code(s): R33.9 - RETENTION OF URINE, UNSPECIFIED
[2020-01-24] MEDS: AMINO ACIDS/PROTEIN HYDROLYS 30 ML LIQUID.PKT PO SCH ×2 (09:00→17:08)
[2020-01-24 09:20] LABS: BASO % 0.6 % (0-2.0); EOS % 2.6 % (0-4.5); HEMATOCRIT 27.8 % (35.4-49); HEMOGLOBIN 9.2 GM/dL (11.7-16.9); LYMPH % 3.6 % (8-40); MEAN CELL VOLUME 94.1 fl (80-96); MEAN PLT VOLUME 7.8 fl (7.5-11.1); MONO % 9.2 % (3.8-10.2); PLATELET COUNT 145 K/MM3 (134-434); RBC 2.95 M/mm3 (4.00-5.60); RDW 18.4 % (11.9-15.9); WHITE BLOOD COUNT 7.6 K/mm3 (4.0-10.0)
[2020-01-24 09:34] LABS: BLOOD UREA NITROGEN 73.9 mg/dL (7-18); CALCIUM 7.9 mg/dL (8.5-10.1); CREATININE 2.4 mg/dL (0.55-1.3); MAGNESIUM 2.1 mg/dL (1.8-2.4); POTASSIUM 3.4 mmol/L (3.5-5.1)
--- NOTE | 2020-01-24 10:36 | PN ---
Progress Note (short form) - Note Progress Note: he patient is an 89 year old white male, with a significant past medical history of mild-moderate systolic CHF, s/p CABG, s/p ICD, HTN, recurrent UTIs secondary, DM, PAD s/p left transmetatarsal amputation, on home O2 2L (only at night), dementia, who presented with dysuria, urgency, frequency and gross hematuria and noted to have Cr of 2.4. Renal sono with mild left hydro, bladder sono likely with large clot. Urine currently pink on CBI. Denies any flank pain, fever, chills, CP or shortness of breath, leg swelling. Appetite has been poor, more lethargic, opens eyes but not following commands, not interactive, Hgb 7.2 despite receiving 4 u pRBC transfusion. 01/16/2020 Underwent cysto, evacuation of clot,, bladder biopsy, urologist noted erythema in bladder. prostatic bleeding 01/22/2020 Demadex switched to IV Lasix yesterday for increased SOB, currently b eing fed lunch 01/23/2020 Less tachypneic today and more arousable on VM O2. 01/23: no acute cardiac events Vital Signs Temperature 97.6 F 01/24/20 06:00 Pulse Rate 72 01/24/20 06:00 Respiratory Rate 18 01/24/20 06:00 Blood Pressure 99/50 L 01/24/20 06:00 O2 Sat by Pulse Oximetry (%) 99 01/23/20 21:00 Cardiovascular: Yes: Regular Rate and Rhythm Respiratory: Yes: Diminished, On Nasal O2 Gastrointestinal: Yes: Soft Extremities: No: Cyanosis Edema: No Labs: CBC, BMP 01/24/20 08:43 01/24/20 08:43 Active Medications Acetaminophen (Tylenol -) 650 mg PO Q6H PRN PRN Reason: PAIN SCALE 1-6 Last Admin: 01/23/20 14:28 Dose: 650 mg Documented by: Amino Acids (Prosource No Carb Liquid Pkt) 30 ml PO BID@0800,1730 [facility] Last Admin: 01/23/20 17:47 Dose: Not Given Documented by: Amoxicillin (Amoxicillin -) 500 mg PO BID [facility] Last Admin: 01/23/20 21:33 Dose: 500 mg Documented by: Ascorbic Acid (Vitamin C -) 500 mg PO DAILY [facility] Last Admin: 01/23/20 09:44 Dose: Not Given Documented by: Bacitracin (Bacitracin -) 1 applic TP DAILY [facility] Last Admin: 01/23/20 09:42 Dose: 1 applic Documented by: Carvedilol (Coreg -) 3.125 mg PO BID [facility] Last Admin: 01/23/20 21:27 Dose: Not Given Documented by: Cholecalciferol (Vitamin D3 -) 1,000 unit PO DAILY [facility] Last Admin: 01/23/20 09:44 Dose: Not Given Documented by: Collagenase (Santyl -) 1 applic TP DAILY [facility]; Protocol Last Admin: 01/23/20 18:06 Dose: 1 applic Documented by: Famotidine (Pepcid -) 20 mg PO DAILY [facility] Last Admin: 01/23/20 09:43 Dose: Not Given Documented by: Fentanyl (Sublimaze Injection -) 25 mcg IVPUSH [id number] PRN PRN Reason: PAIN-PACU ORDER X 4 DOSES ONLY Finasteride (Proscar -) 5 mg PO DAILY [facility] Last Admin: 01/23/20 09:44 Dose: Not Given Documented by: Folic Acid (Folic Acid -) 1 mg PO DAILY [facility] Last Admin: 01/23/20 09:43 Dose: Not Given Documented by: Furosemide (Lasix Injection -) 40 mg IVPUSH DAILY [facility] Last Admin: 01/23/20 09:45 Dose: 40 mg Documented by: Levothyroxine Sodium (Synthroid -) 75 mcg PO DAILY@0700 [facility] Last Admin: 01/24/20 06:25 Dose: 75 mcg Documented by: Lidocaine (Lidoderm Patch -) 1 patch TP DAILY@1630 PRN PRN Reason: PAIN Last Admin: 01/21/20 10:15 Dose: 1 patch Documented by: Miscellaneous (Lidoderm Patch Removal) 1 each MC DAILY@0430 [facility] Last Admin: 01/24/20 04:03 Dose: Not Given Documented by: Multivitamins/Minerals (Theragran-M) 1 each PO DAILY [facility] Last Admin: 01/23/20 09:44 Dose: Not Given Documented by: Nystatin (Nystop Powder -) 1 applic TP BID [facility] Last Admin: 01/23/20 21:36 Dose: 1 applic Documented by: Polyethylene Glycol (Miralax (For Daily Use) -) 17 gm PO BID PRN PRN Reason: CONSTIPATION Rosuvastatin Calcium (Crestor -) 10 mg PO [facility] Last Admin: 01/23/20 21:33 Dose: 10 mg Documented by: Tamsulosin HCl (Flomax -) 0.4 mg PO [facility] Last Admin: 01/23/20 21:36 Dose: 0.4 mg Documented by: Zinc Oxide (Desitin Diaper Rash Oint -) 1 applic TP ASDIR PRN PRN Reason: HYGEINE Assessment/Plan Problem List - Problems (1) Weakness Code(s): R53.1 - WEAKNESS (2) Acute on chronic systolic (congestive) heart failure Code(s): I50.23 - ACUTE ON CHRONIC SYSTOLIC (CONGESTIVE) HEART FAILURE (3) CAD (coronary artery disease) Code(s): I25.10 - ATHSCL HEART DISEASE OF [place] CORONARY ARTERY W/O ANG PCTRS Qualifiers: Coronary Disease-Associated Artery/Lesion type: [place] artery [place] vs. transplanted heart: [place] heart Associated angina: without angina Qualified Code(s): I25.10 - Atherosclerotic heart disease of [place] coronary artery without angina pectoris (4) CKD (chronic kidney disease) Code(s): N18.9 - CHRONIC KIDNEY DISEASE, UNSPECIFIED Qualifiers: Chronic kidney disease stage: stage 3 (moderate) Qualified Code(s): N18.3 - Chronic kidney disease, stage 3 (moderate) (5) Hx of CABG Code(s): Z95.1 - PRESENCE OF AORTOCORONARY BYPASS GRAFT (6) Hypercholesterolemia Code(s): E78.0 - PURE HYPERCHOLESTEROLEMIA * DO NOT USE * (7) Hypothyroidism Code(s): E03.9 - HYPOTHYROIDISM, UNSPECIFIED Qualifiers: Hypothyroidism type: unspecified Qualified Code(s): E03.9 - Hypothyroidism, unspecified (8) ICD (implantable cardioverter-defibrillator) in place Code(s): Z95.810 - PRESENCE OF AUTOMATIC (IMPLANTABLE) CARDIAC DEFIBRILLATOR (9) Pleural effusion Code(s): J90 - PLEURAL EFFUSION, NOT ELSEWHERE CLASSIFIED Assessment/Plan 12/27/[address]: Large bilateral pleural effusion with compressive ATX R>L, no pulm masses, mild mediastinal LAD unchanged from 02/25/2019 12/27/2019 CXR Large right effusion, mild left 07/21/2016 echocardiography revealed moderately dilated LV with mild-moderate decrease in LV function, pacer RV, mild LAE, moderate MR, mild TR 08/02/2018 echocardiography revealed mild to moderately decreased LVEF 40-45%, normal RV size and function, mild LAE, mild MR, trace TR and AR 1. Gross hematuria, dysuria, suspected cystitis 2. 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 Acute on chronic systolic/diastolic failure with bilateral effusion, worsened SOB 4. UTI 5. CAD post CABG, angina pectoris 6. HTN 7. NIDDM 8. Hypercholesterolemia 9. 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 Carotid stenosis 11. Hypothyroidism 12. PAD post [employer] and amputation (TMA) 13. Macrocytic anemia 14. Thrombocytopenia 15. Sacral decubiti ulcer 16. Hypernatremia resolved 17. Moderate right pleural effusion PLAN: Hb 9.2 Cardiac same: 1. Decreased Furosemide 40 mg IV QD and monitor diuretic response, renal recovery and electrolytes 2. Restart ASA 81 mg QD pending hemostasis. Continue Carvedilol 3.125 mg BID (hold if hypotensive) and Rosuvastatin 10 mg QHS. Not on ARB due to CKD 3. Pulmonary input noted regarding diagnostic thoracentesis and its risk for the patient, mechanical DVT prophylaxis
[2020-01-24] MEDS: FUROSEMIDE 40 MG/4 ML INJECTABLE VIAL IVPUSH SCH (10:50)
[2020-01-24] MEDS: AMOXICILLIN 500 MG CAPSULE (FP) PO SCH ×2 (10:54→22:31)
[2020-01-24] MEDS: CARVEDILOL 3.125 MG TABLET (FP) PO SCH ×2 (10:54→22:31)
[2020-01-24] MEDS: FINASTERIDE 5 MG TABLET (FP) PO SCH (10:54)
[2020-01-24] MEDS: BACITRACIN 15 GM TUBE TOPICAL OINTMENT TP SCH (10:54)
[2020-01-24] MEDS: FOLIC ACID 1 MG TABLET (FP) PO SCH (10:54)
[2020-01-24] MEDS: FAMOTIDINE 20 MG TABLET PO SCH (10:54)
[2020-01-24] MEDS: MULTIVITAMINS THER W-MINERALS COMBO TABLET (FP) PO SCH (10:55)
[2020-01-24] MEDS: NYSTATIN POWDER 100,000 UNITS/GM - 15 GM TOPICAL POWDER TP SCH ×2 (10:55→22:31)
[2020-01-24] MEDS: ASCORBIC ACID 500 MG TABLET (FP) PO SCH (10:55)
[2020-01-24] MEDS: COLLAGENASE CLOSTRIDIUM HIST. 30 GRAMS TUBE TP SCH (10:55)
--- NOTE | 2020-01-24 12:40 | PN ---
Progress Note, Physician Chief Complaint: in bed; weak; poor po intake - Current Medication List Current Medications: Active Medications Acetaminophen (Tylenol -) 650 mg PO Q6H PRN PRN Reason: PAIN SCALE 1-6 Last Admin: 01/23/20 14:28 Dose: 650 mg Documented by: Amino Acids (Prosource No Carb Liquid Pkt) 30 ml PO BID@0800,1730 [facility] Last Admin: 01/24/20 09:00 Dose: Not Given Documented by: Amoxicillin (Amoxicillin -) 500 mg PO BID [facility] Last Admin: 01/24/20 10:54 Dose: 500 mg Documented by: Ascorbic Acid (Vitamin C -) 500 mg PO DAILY [facility] Last Admin: 01/24/20 10:55 Dose: 500 mg Documented by: Bacitracin (Bacitracin -) 1 applic TP DAILY [facility] Last Admin: 01/24/20 10:54 Dose: 1 applic Documented by: Carvedilol (Coreg -) 3.125 mg PO BID [facility] Last Admin: 01/24/20 10:54 Dose: 3.125 mg Documented by: Cholecalciferol (Vitamin D3 -) 1,000 unit PO DAILY [facility] Last Admin: 01/23/20 09:44 Dose: Not Given Documented by: Collagenase (Santyl -) 1 applic TP DAILY [facility]; Protocol Last Admin: 01/24/20 10:55 Dose: 1 applic Documented by: Famotidine (Pepcid -) 20 mg PO DAILY [facility] Last Admin: 01/24/20 10:54 Dose: 20 mg Documented by: Fentanyl (Sublimaze Injection -) 25 mcg IVPUSH [id number] PRN PRN Reason: PAIN-PACU ORDER X 4 DOSES ONLY Finasteride (Proscar -) 5 mg PO DAILY [facility] Last Admin: 01/24/20 10:54 Dose: 5 mg Documented by: Folic Acid (Folic Acid -) 1 mg PO DAILY [facility] Last Admin: 01/24/20 10:54 Dose: 1 mg Documented by: Furosemide (Lasix Injection -) 40 mg IVPUSH DAILY [facility] Last Admin: 01/24/20 10:50 Dose: 40 mg Documented by: Levothyroxine Sodium (Synthroid -) 75 mcg PO DAILY@0700 [facility] Last Admin: 01/24/20 06:25 Dose: 75 mcg Documented by: Lidocaine (Lidoderm Patch -) 1 patch TP DAILY@1630 PRN PRN Reason: PAIN Last Admin: 01/21/20 10:15 Dose: 1 patch Documented by: Miscellaneous (Lidoderm Patch Removal) 1 each MC DAILY@0430 [facility] Last Admin: 01/24/20 04:03 Dose: Not Given Documented by: Multivitamins/Minerals (Theragran-M) 1 each PO DAILY [facility] Last Admin: 01/24/20 10:55 Dose: 1 each Documented by: Nystatin (Nystop Powder -) 1 applic TP BID [facility] Last Admin: 01/24/20 10:55 Dose: 1 applic Documented by: Polyethylene Glycol (Miralax (For Daily Use) -) 17 gm PO BID PRN PRN Reason: CONSTIPATION Rosuvastatin Calcium (Crestor -) 10 mg PO HS [facility] Last Admin: 01/23/20 21:33 Dose: 10 mg Documented by: Tamsulosin HCl (Flomax -) 0.4 mg PO [facility] Last Admin: 01/23/20 21:36 Dose: 0.4 mg Documented by: Zinc Oxide (Desitin Diaper Rash Oint -) 1 applic TP ASDIR PRN PRN Reason: HYGEINE - Objective Vital Signs: Vital Signs Temperature 97.6 F 01/24/20 06:00 Pulse Rate 72 01/24/20 06:00 Respiratory Rate 18 01/24/20 06:00 Blood Pressure 99/50 L 01/24/20 06:00 O2 Sat by Pulse Oximetry (%) 99 01/23/20 21:00 Constitutional: Yes: Calm Eyes: Yes: Conjunctiva Clear HENT: Yes: Atraumatic Neck: Yes: Supple Cardiovascular: Yes: Regular Rate and Rhythm Respiratory: Yes: Diminished Gastrointestinal: Yes: Soft. No: Tenderness Genitourinary: No: Hematuria Musculoskeletal: No: Joint Stiffness, Joint Swelling Extremities: No: Cold, Cool Edema: No Integumentary: Yes: Bruising Neurological: Yes: Alert. No: Oriented Psychiatric: Yes: Alert. No: Oriented, Agitated Labs: CBC, BMP 01/24/20 08:43 01/24/20 08:43 INR, PTT INR 1.26 (0.83-1.09) H 01/13/20 01:24 - ....Imaging Other: Report Reviewed Assessment/Plan 89 yo M history CHF s/p AICD, CAD s/p stents, HTN, HL, CKD, BPH, hypothyroid admitted with hematuria, dysuria and passing clots; UCx enteroccocus; s/p Cystoscopy hematuria stopped; CHF / fluid OL on IV lasix; borderline hypotensive; decreased po intake renal and cardio f/u; CXR; labs; pulm f/u palliative care eval DVT pfx - can not use sq heparin due to bleeding decubs PFX turn q1 hour; wounds care; protein malnutrition - added po AA d/w pt's all the above; she asked for DNR DNI per pt's wishes also for eval for home hospice per pt's wishes to go home; she does not want [place] [facility]; d/w D staff - pt to be eval by hospice nurse; said she is in process to hire private [employer]
[2020-01-24] MEDS ORDERED: POTASSIUM CHLORIDE TABS 20 MEQ TABLET.ER (FP) PO ONE (12:44)
--- NOTE | 2020-01-24 14:54 | PN ---
Progress Note, Physician Chief Complaint: Hematuria History of Present Illness: Seen and examined at the bedside awake but not talking no overnight events making urine - Current Medication List Current Medications: Active Medications Acetaminophen (Tylenol -) 650 mg PO Q6H PRN PRN Reason: PAIN SCALE 1-6 Last Admin: 01/23/20 14:28 Dose: 650 mg Documented by: Amino Acids (Prosource No Carb Liquid Pkt) 30 ml PO BID@0800,1730 [facility] Last Admin: 01/24/20 09:00 Dose: Not Given Documented by: Amoxicillin (Amoxicillin -) 500 mg PO BID [facility] Last Admin: 01/24/20 10:54 Dose: 500 mg Documented by: Ascorbic Acid (Vitamin C -) 500 mg PO DAILY [facility] Last Admin: 01/24/20 10:55 Dose: 500 mg Documented by: Bacitracin (Bacitracin -) 1 applic TP DAILY [facility] Last Admin: 01/24/20 10:54 Dose: 1 applic Documented by: Carvedilol (Coreg -) 3.125 mg PO BID [facility] Last Admin: 01/24/20 10:54 Dose: 3.125 mg Documented by: Cholecalciferol (Vitamin D3 -) 1,000 unit PO DAILY [facility] Last Admin: 01/23/20 09:44 Dose: Not Given Documented by: Collagenase (Santyl -) 1 applic TP DAILY [facility]; Protocol Last Admin: 01/24/20 10:55 Dose: 1 applic Documented by: Famotidine (Pepcid -) 20 mg PO DAILY [facility] Last Admin: 01/24/20 10:54 Dose: 20 mg Documented by: Fentanyl (Sublimaze Injection -) 25 mcg IVPUSH [id number] PRN PRN Reason: PAIN-PACU ORDER X 4 DOSES ONLY Finasteride (Proscar -) 5 mg PO DAILY [facility] Last Admin: 01/24/20 10:54 Dose: 5 mg Documented by: Folic Acid (Folic Acid -) 1 mg PO DAILY [facility] Last Admin: 01/24/20 10:54 Dose: 1 mg Documented by: Furosemide (Lasix Injection -) 40 mg IVPUSH DAILY [facility] Last Admin: 01/24/20 10:50 Dose: 40 mg Documented by: Levothyroxine Sodium (Synthroid -) 75 mcg PO DAILY@0700 [facility] Last Admin: 01/24/20 06:25 Dose: 75 mcg Documented by: Lidocaine (Lidoderm Patch -) 1 patch TP DAILY@1630 PRN PRN Reason: PAIN Last Admin: 01/21/20 10:15 Dose: 1 patch Documented by: Miscellaneous (Lidoderm Patch Removal) 1 each MC DAILY@0430 [facility] Last Admin: 01/24/20 04:03 Dose: Not Given Documented by: Multivitamins/Minerals (Theragran-M) 1 each PO DAILY [facility] Last Admin: 01/24/20 10:55 Dose: 1 each Documented by: Nystatin (Nystop Powder -) 1 applic TP BID [facility] Last Admin: 01/24/20 10:55 Dose: 1 applic Documented by: Polyethylene Glycol (Miralax (For Daily Use) -) 17 gm PO BID PRN PRN Reason: CONSTIPATION Rosuvastatin Calcium (Crestor -) 10 mg PO HS [facility] Last Admin: 01/23/20 21:33 Dose: 10 mg Documented by: Tamsulosin HCl (Flomax -) 0.4 mg PO [facility] Last Admin: 01/23/20 21:36 Dose: 0.4 mg Documented by: Zinc Oxide (Desitin Diaper Rash Oint -) 1 applic TP ASDIR PRN PRN Reason: HYGEINE - Objective Vital Signs: Vital Signs Temperature 98.6 F 01/24/20 14:45 Pulse Rate 75 01/24/20 14:45 Respiratory Rate 16 01/24/20 14:45 Blood Pressure 93/43 L 01/24/20 14:45 O2 Sat by Pulse Oximetry (%) 99 01/23/20 21:00 Constitutional: Yes: No Distress Neck: Yes: Supple Cardiovascular: Yes: Regular Rate and Rhythm Respiratory: Yes: Regular Extremities: No: Cyanosis Edema: No Labs: CBC, BMP 01/24/20 08:43 01/24/20 08:43 INR, PTT INR 1.26 (0.83-1.09) H 01/13/20 01:24 Assessment/Plan 89 year old male with history of CKD stage 4 (baseline Cr 1.7-2.2), CAD s/p CABG, BPH, CHF 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 1. CKD stage 4 2. Dysuria/Suspected cystitis 3. CAD s/p CABG 4. 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 Acute on chronic anemia renal function improved. There are no overt electrolyte or acid based disturbance is noted. Continue IV Lasix once daily for now as is he still displays some signs of hypervolemia. Titrate oxygen as needed. Pulmonary and cardiology follow-up. s/p Epogen yesterday. Trend renal function and electrolytes daily. DNR/DNI, supportive care Oscar Madrid DO
[2020-01-24] MEDS: CHOLECALCIFEROL (VIT D3) 1,000 UNIT (25 MCG) TABLET PO SCH (15:29)
[2020-01-24] MEDS: TAMSULOSIN HCL 0.4 MG CAP PO SCH (22:31)
[2020-01-24] MEDS: ROSUVASTATIN CA 10 MG TABLET (FP) PO SCH (22:31)
[2020-01-25] MEDS: LIDOCAINE PATCH REMOVAL MC SCH (04:30)
[2020-01-25] MEDS: LEVOTHYROXINE NA 75 MCG TABLET (FP) PO SCH (06:19)
--- NOTE | 2020-01-25 07:09 | PN ---
Progress Note, Physician History of Present Illness: pulmonary no change,lethargic on vm,-resp distress - Current Medication List Current Medications: Active Medications Acetaminophen (Tylenol -) 650 mg PO Q6H PRN PRN Reason: PAIN SCALE 1-6 Last Admin: 01/23/20 14:28 Dose: 650 mg Documented by: Amino Acids (Prosource No Carb Liquid Pkt) 30 ml PO BID@0800,1730 [facility] Last Admin: 01/24/20 17:08 Dose: Not Given Documented by: Amoxicillin (Amoxicillin -) 500 mg PO BID [facility] Last Admin: 01/24/20 22:31 Dose: 500 mg Documented by: Ascorbic Acid (Vitamin C -) 500 mg PO DAILY [facility] Last Admin: 01/24/20 10:55 Dose: 500 mg Documented by: Bacitracin (Bacitracin -) 1 applic TP DAILY [facility] Last Admin: 01/24/20 10:54 Dose: 1 applic Documented by: Carvedilol (Coreg -) 3.125 mg PO BID [facility] Last Admin: 01/24/20 22:31 Dose: Not Given Documented by: Cholecalciferol (Vitamin D3 -) 1,000 unit PO DAILY [facility] Last Admin: 01/24/20 15:29 Dose: 1,000 unit Documented by: Collagenase (Santyl -) 1 applic TP DAILY [facility]; Protocol Last Admin: 01/24/20 10:55 Dose: 1 applic Documented by: Famotidine (Pepcid -) 20 mg PO DAILY [facility] Last Admin: 01/24/20 10:54 Dose: 20 mg Documented by: Fentanyl (Sublimaze Injection -) 25 mcg IVPUSH [id number] PRN PRN Reason: PAIN-PACU ORDER X 4 DOSES ONLY Finasteride (Proscar -) 5 mg PO DAILY [facility] Last Admin: 01/24/20 10:54 Dose: 5 mg Documented by: Folic Acid (Folic Acid -) 1 mg PO DAILY [facility] Last Admin: 01/24/20 10:54 Dose: 1 mg Documented by: Furosemide (Lasix Injection -) 40 mg IVPUSH DAILY [facility] Last Admin: 01/24/20 10:50 Dose: 40 mg Documented by: Levothyroxine Sodium (Synthroid -) 75 mcg PO DAILY@0700 [facility] Last Admin: 01/25/20 06:19 Dose: 75 mcg Documented by: Lidocaine (Lidoderm Patch -) 1 patch TP DAILY@1630 PRN PRN Reason: PAIN Last Admin: 01/21/20 10:15 Dose: 1 patch Documented by: Miscellaneous (Lidoderm Patch Removal) 1 each MC DAILY@0430 [facility] Last Admin: 01/25/20 04:30 Dose: Not Given Documented by: Multivitamins/Minerals (Theragran-M) 1 each PO DAILY [facility] Last Admin: 01/24/20 10:55 Dose: 1 each Documented by: Nystatin (Nystop Powder -) 1 applic TP BID [facility] Last Admin: 01/24/20 22:31 Dose: 1 applic Documented by: Polyethylene Glycol (Miralax (For Daily Use) -) 17 gm PO BID PRN PRN Reason: CONSTIPATION Rosuvastatin Calcium (Crestor -) 10 mg PO HS [facility] Last Admin: 01/24/20 22:31 Dose: 10 mg Documented by: Tamsulosin HCl (Flomax -) 0.4 mg PO [facility] Last Admin: 01/24/20 22:31 Dose: 0.4 mg Documented by: Zinc Oxide (Desitin Diaper Rash Oint -) 1 applic TP ASDIR PRN PRN Reason: HYGEINE - Objective Vital Signs: Vital Signs Temperature 97.5 F L 01/25/20 06:00 Pulse Rate 72 01/25/20 06:00 Respiratory Rate 18 01/25/20 06:00 Blood Pressure 93/48 L 01/25/20 06:00 O2 Sat by Pulse Oximetry (%) 99 01/24/20 21:00 Constitutional: Yes: Cachectic, Other (lethargic) Eyes: Yes: WNL HENT: Yes: WNL Neck: Yes: WNL Cardiovascular: Yes: Regular Rate and Rhythm, S1, S2 Respiratory: Yes: Diminished Gastrointestinal: Yes: Normal Bowel Sounds, Soft Extremities: Yes: WNL Edema: No Labs: CBC, BMP Assessment/Plan Problem List - Problems (1) CKD (chronic kidney disease) Code(s): N18.9 - CHRONIC KIDNEY DISEASE, UNSPECIFIED Qualifiers: Chronic kidney disease stage: unspecified stage Qualified Code(s): N18.9 - Chronic kidney disease, unspecified (2) Hematuria Code(s): R31.9 - HEMATURIA, UNSPECIFIED Qualifiers: Hematuria type: gross Qualified Code(s): R31.0 - Gross hematuria (3) ASHLYN (acute kidney injury) Code(s): N17.9 - ACUTE KIDNEY FAILURE, UNSPECIFIED (4) ASHD (arteriosclerotic heart disease) Code(s): I25.10 - ATHSCL HEART DISEASE OF [place] CORONARY ARTERY W/O ANG PCTRS (5) Anemia Code(s): D64.9 - ANEMIA, UNSPECIFIED Qualifiers: Anemia type: unspecified type Qualified Code(s): D64.9 - Anemia, unspecified (6) Anxiety Code(s): F41.9 - ANXIETY DISORDER, UNSPECIFIED (7) BPH (benign prostatic hyperplasia) Code(s): N40.0 - BENIGN PROSTATIC HYPERPLASIA WITHOUT LOWER URINRY TRACT SYMP (8) Bilateral leg edema Code(s): R60.0 - LOCALIZED EDEMA (9) CAD (coronary artery disease) Code(s): I25.10 - ATHSCL HEART DISEASE OF [place] CORONARY ARTERY W/O ANG PCTRS Qualifiers: Coronary Disease-Associated Artery/Lesion type: [place] artery [place] vs. transplanted heart: [place] heart Associated angina: without angina Qualified Code(s): I25.10 - Atherosclerotic heart disease of [place] coronary artery without angina pectoris (10) CHF (congestive heart failure) Code(s): I50.9 - HEART FAILURE, UNSPECIFIED (11) CHF exacerbation Code(s): I50.9 - HEART FAILURE, UNSPECIFIED (12) COPD (chronic obstructive pulmonary disease) Code(s): J44.9 - CHRONIC OBSTRUCTIVE PULMONARY DISEASE, UNSPECIFIED Qualifiers: COPD type: unspecified COPD Qualified Code(s): J44.9 - Chronic obstructive pulmonary disease, unspecified (13) Carotid artery disease Code(s): I77.9 - DISORDER OF ARTERIES AND ARTERIOLES, UNSPECIFIED (14) Chronic renal failure Code(s): N18.9 - CHRONIC KIDNEY DISEASE, UNSPECIFIED (15) Chronic systolic heart failure Code(s): I50.22 - CHRONIC SYSTOLIC (CONGESTIVE) HEART FAILURE (16) Cough Code(s): R05 - COUGH (17) Diabetes mellitus Code(s): E11.9 - TYPE 2 DIABETES MELLITUS WITHOUT COMPLICATIONS (18) Dyspnea Code(s): R06.00 - DYSPNEA, UNSPECIFIED Qualifiers: (19) [place] (hard of hearing) Code(s): H91.90 - UNSPECIFIED HEARING LOSS, UNSPECIFIED EAR (20) HTN (hypertension) Code(s): I10 - ESSENTIAL (PRIMARY) HYPERTENSION Qualifiers: (21) History of ischemic colitis Code(s): Z87.19 - PERSONAL HISTORY OF OTHER DISEASES OF THE DIGESTIVE SYSTEM (22) Hx of BKA Code(s): Z89.519 - ACQUIRED ABSENCE OF UNSPECIFIED LEG BELOW KNEE (23) Hx of CABG Code(s): Z95.1 - PRESENCE OF AORTOCORONARY BYPASS GRAFT (24) Hypercholesterolemia Code(s): E78.0 - PURE HYPERCHOLESTEROLEMIA * DO NOT USE * (25) Hypoalbuminemia Code(s): E88.09 - OTH DISORDERS OF PLASMA-PROTEIN METABOLISM, NEC (26) Hypothyroidism Code(s): E03.9 - HYPOTHYROIDISM, UNSPECIFIED Qualifiers: Hypothyroidism type: unspecified Qualified Code(s): E03.9 - Hypothyroidism, unspecified (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 Code(s): Z95.810 - PRESENCE OF AUTOMATIC (IMPLANTABLE) CARDIAC DEFIBRILLATOR (28) PVD (peripheral vascular disease) Code(s): I73.9 - PERIPHERAL VASCULAR DISEASE, UNSPECIFIED (29) Peripheral arterial disease Code(s): I73.9 - PERIPHERAL VASCULAR DISEASE, UNSPECIFIED (30) Pleural effusion Code(s): J90 - PLEURAL EFFUSION, NOT ELSEWHERE CLASSIFIED (31) Urinary retention Code(s): R33.9 - RETENTION OF URINE, UNSPECIFIED Assessment/Plan IV Lasix 40mg VM O2 to maintain saturation Aspiration precautions Follow CXR Monitor lytes,renal function DR NAVARRO Problem List - Problems (1) CKD (chronic kidney disease) Code(s): N18.9 - CHRONIC KIDNEY DISEASE, UNSPECIFIED Qualifiers: Chronic kidney disease stage: unspecified stage Qualified Code(s): N18.9 - Chronic kidney disease, unspecified (2) Hematuria Code(s): R31.9 - HEMATURIA, UNSPECIFIED Qualifiers: Hematuria type: gross Qualified Code(s): R31.0 - Gross hematuria (3) ASHLYN (acute kidney injury) Code(s): N17.9 - ACUTE KIDNEY FAILURE, UNSPECIFIED (4) ASHD (arteriosclerotic heart disease) Code(s): I25.10 - ATHSCL HEART DISEASE OF [place] CORONARY ARTERY W/O ANG PCTRS (5) Anemia Code(s): D64.9 - ANEMIA, UNSPECIFIED Qualifiers: Anemia type: unspecified type Qualified Code(s): D64.9 - Anemia, unspecified (6) Anxiety Code(s): F41.9 - ANXIETY DISORDER, UNSPECIFIED (7) BPH (benign prostatic hyperplasia) Code(s): N40.0 - BENIGN PROSTATIC HYPERPLASIA WITHOUT LOWER URINRY TRACT SYMP (8) Bilateral leg edema Code(s): R60.0 - LOCALIZED EDEMA (9) CAD (coronary artery disease) Code(s): I25.10 - ATHSCL HEART DISEASE OF [place] CORONARY ARTERY W/O ANG PCTRS Qualifiers: Coronary Disease-Associated Artery/Lesion type: [place] artery [place] vs. transplanted heart: [place] heart Associated angina: without angina Qualified Code(s): I25.10 - Atherosclerotic heart disease of [place] coronary artery without angina pectoris (10) CHF (congestive heart failure) Code(s): I50.9 - HEART FAILURE, UNSPECIFIED (11) CHF exacerbation Code(s): I50.9 - HEART FAILURE, UNSPECIFIED (12) COPD (chronic obstructive pulmonary disease) Code(s): J44.9 - CHRONIC OBSTRUCTIVE PULMONARY DISEASE, UNSPECIFIED Qualifiers: COPD type: unspecified COPD Qualified Code(s): J44.9 - Chronic obstructive pulmonary disease, unspecified (13) Carotid artery disease Code(s): I77.9 - DISORDER OF ARTERIES AND ARTERIOLES, UNSPECIFIED (14) Chronic renal failure Code(s): N18.9 - CHRONIC KIDNEY DISEASE, UNSPECIFIED (15) Chronic systolic heart failure Code(s): I50.22 - CHRONIC SYSTOLIC (CONGESTIVE) HEART FAILURE (16) Cough Code(s): R05 - COUGH (17) Diabetes mellitus Code(s): E11.9 - TYPE 2 DIABETES MELLITUS WITHOUT COMPLICATIONS (18) Dyspnea Code(s): R06.00 - DYSPNEA, UNSPECIFIED Qualifiers: (19) [place] (hard of hearing) Code(s): H91.90 - UNSPECIFIED HEARING LOSS, UNSPECIFIED EAR (20) HTN (hypertension) Code(s): I10 - ESSENTIAL (PRIMARY) HYPERTENSION Qualifiers: (21) History of ischemic colitis Code(s): Z87.19 - PERSONAL HISTORY OF OTHER DISEASES OF THE DIGESTIVE SYSTEM (22) Hx of BKA Code(s): Z89.519 - ACQUIRED ABSENCE OF UNSPECIFIED LEG BELOW KNEE (23) Hx of CABG Code(s): Z95.1 - PRESENCE OF AORTOCORONARY BYPASS GRAFT (24) Hypercholesterolemia Code(s): E78.0 - PURE HYPERCHOLESTEROLEMIA * DO NOT USE * (25) Hypoalbuminemia Code(s): E88.09 - OTH DISORDERS OF PLASMA-PROTEIN METABOLISM, NEC (26) Hypothyroidism Code(s): E03.9 - HYPOTHYROIDISM, UNSPECIFIED Qualifiers: Hypothyroidism type: unspecified Qualified Code(s): E03.9 - Hypothyroidism, unspecified (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 Code(s): Z95.810 - PRESENCE OF AUTOMATIC (IMPLANTABLE) CARDIAC DEFIBRILLATOR (28) PVD (peripheral vascular disease) Code(s): I73.9 - PERIPHERAL VASCULAR DISEASE, UNSPECIFIED (29) Peripheral arterial disease Code(s): I73.9 - PERIPHERAL VASCULAR DISEASE, UNSPECIFIED (30) Pleural effusion Code(s): J90 - PLEURAL EFFUSION, NOT ELSEWHERE CLASSIFIED (31) Urinary retention Code(s): R33.9 - RETENTION OF URINE, UNSPECIFIED
[2020-01-25 08:47] LABS: BASO % 0.7 % (0-2.0); EOS % 2.1 % (0-4.5); HEMATOCRIT 28.3 % (35.4-49); HEMOGLOBIN 9.5 GM/dL (11.7-16.9); MCH 31.9 pg (25.7-33.7); MCHC 33.8 g/dl (32.0-35.9); MEAN CELL VOLUME 94.5 fl (80-96); MEAN PLT VOLUME 8.3 fl (7.5-11.1); MONO % 10.6 % (3.8-10.2); NEUT % 81.6 % (42.8-82.8); PLATELET COUNT 143 K/MM3 (134-434); RBC 2.99 M/mm3 (4.00-5.60); RDW 18.6 % (11.9-15.9); WHITE BLOOD COUNT 5.9 K/mm3 (4.0-10.0)
[2020-01-25 09:10] LABS: CALCIUM 8.1 mg/dL (8.5-10.1); CREATININE 2.4 mg/dL (0.55-1.3); MAGNESIUM 1.9 mg/dL (1.8-2.4); PHOSPHOROUS 2.7 mg/dL (2.5-4.9); POTASSIUM 3.4 mmol/L (3.5-5.1)
[2020-01-25] MEDS: AMOXICILLIN 500 MG CAPSULE (FP) PO SCH (10:09)
[2020-01-25] MEDS: CARVEDILOL 3.125 MG TABLET (FP) PO SCH ×2 (10:09→22:12)
[2020-01-25] MEDS: MULTIVITAMINS THER W-MINERALS COMBO TABLET (FP) PO SCH (10:09)
[2020-01-25] MEDS: ASCORBIC ACID 500 MG TABLET (FP) PO SCH (10:09)
[2020-01-25] MEDS: FOLIC ACID 1 MG TABLET (FP) PO SCH (10:09)
[2020-01-25] MEDS: CHOLECALCIFEROL (VIT D3) 1,000 UNIT (25 MCG) TABLET PO SCH (10:09)
[2020-01-25] MEDS: NYSTATIN POWDER 100,000 UNITS/GM - 15 GM TOPICAL POWDER TP SCH ×2 (10:10→22:12)
[2020-01-25] MEDS: FUROSEMIDE 40 MG/4 ML INJECTABLE VIAL IVPUSH SCH (10:10)
[2020-01-25] MEDS: AMINO ACIDS/PROTEIN HYDROLYS 30 ML LIQUID.PKT PO SCH ×2 (10:10→16:52)
[2020-01-25] MEDS: BACITRACIN 15 GM TUBE TOPICAL OINTMENT TP SCH (10:10)
[2020-01-25] MEDS: FAMOTIDINE 20 MG TABLET PO SCH (10:10)
[2020-01-25] MEDS: FINASTERIDE 5 MG TABLET (FP) PO SCH (10:10)
[2020-01-25] MEDS: COLLAGENASE CLOSTRIDIUM HIST. 30 GRAMS TUBE TP SCH (10:11)
--- NOTE | 2020-01-25 12:05 | PN ---
Progress Note (short form) - Note Progress Note: he patient is an 89 year old white male, with a significant past medical history of mild-moderate systolic CHF, s/p CABG, s/p ICD, HTN, recurrent UTIs secondary, DM, PAD s/p left transmetatarsal amputation, on home O2 2L (only at night), dementia, who presented with dysuria, urgency, frequency and gross hematuria and noted to have Cr of 2.4. Renal sono with mild left hydro, bladder sono likely with large clot. Urine currently pink on CBI. Denies any flank pain, fever, chills, CP or shortness of breath, leg swelling. Appetite has been poor, more lethargic, opens eyes but not following commands, not interactive, Hgb 7.2 despite receiving 4 u pRBC transfusion. 01/16/2020 Underwent cysto, evacuation of clot,, bladder biopsy, urologist noted erythema in bladder. prostatic bleeding 01/22/2020 Demadex switched to IV Lasix yesterday for increased SOB, currently b eing fed lunch 01/23/2020 Less tachypneic today and more arousable on VM O2. 01/23: no acute cardiac events 01/24: No significant changes Vital Signs Temperature 97.5 F L 01/25/20 06:00 Pulse Rate 72 01/25/20 06:00 Respiratory Rate 18 01/25/20 06:00 Blood Pressure 93/48 L 01/25/20 06:00 O2 Sat by Pulse Oximetry (%) 99 01/24/20 21:00 Cardiovascular: Yes: Regular Rate and Rhythm Respiratory: Yes: Diminished, On Nasal O2 Gastrointestinal: Yes: Soft Extremities: No: Cyanosis Edema: No Labs: CBC, BMP 01/25/20 07:33 01/25/20 07:33 Active Medications Acetaminophen (Tylenol -) 650 mg PO Q6H PRN PRN Reason: PAIN SCALE 1-6 Last Admin: 01/23/20 14:28 Dose: 650 mg Documented by: Amino Acids (Prosource No Carb Liquid Pkt) 30 ml PO BID@0800,1730 [facility] Last Admin: 01/25/20 10:10 Dose: Not Given Documented by: Amoxicillin (Amoxicillin -) 500 mg PO BID [facility] Last Admin: 01/25/20 10:09 Dose: 500 mg Documented by: Ascorbic Acid (Vitamin C -) 500 mg PO DAILY [facility] Last Admin: 01/25/20 10:09 Dose: 500 mg Documented by: Bacitracin (Bacitracin -) 1 applic TP DAILY [facility] Last Admin: 01/25/20 10:10 Dose: 1 applic Documented by: Carvedilol (Coreg -) 3.125 mg PO BID [facility] Last Admin: 01/25/20 10:09 Dose: 3.125 mg Documented by: Cholecalciferol (Vitamin D3 -) 1,000 unit PO DAILY [facility] Last Admin: 01/25/20 10:09 Dose: 1,000 unit Documented by: Collagenase (Santyl -) 1 applic TP DAILY [facility]; Protocol Last Admin: 01/25/20 10:11 Dose: 1 applic Documented by: Famotidine (Pepcid -) 20 mg PO DAILY [facility] Last Admin: 01/25/20 10:10 Dose: 20 mg Documented by: Fentanyl (Sublimaze Injection -) 25 mcg IVPUSH [id number] PRN PRN Reason: PAIN-PACU ORDER X 4 DOSES ONLY Finasteride (Proscar -) 5 mg PO DAILY [facility] Last Admin: 01/25/20 10:10 Dose: 5 mg Documented by: Folic Acid (Folic Acid -) 1 mg PO DAILY [facility] Last Admin: 01/25/20 10:09 Dose: 1 mg Documented by: Furosemide (Lasix Injection -) 40 mg IVPUSH DAILY [facility] Last Admin: 01/25/20 10:10 Dose: 40 mg Documented by: Levothyroxine Sodium (Synthroid -) 75 mcg PO DAILY@0700 [facility] Last Admin: 01/25/20 06:19 Dose: 75 mcg Documented by: Lidocaine (Lidoderm Patch -) 1 patch TP DAILY@1630 PRN PRN Reason: PAIN Last Admin: 01/21/20 10:15 Dose: 1 patch Documented by: Miscellaneous (Lidoderm Patch Removal) 1 each MC DAILY@0430 [facility] Last Admin: 01/25/20 04:30 Dose: Not Given Documented by: Multivitamins/Minerals (Theragran-M) 1 each PO DAILY [facility] Last Admin: 01/25/20 10:09 Dose: 1 each Documented by: Nystatin (Nystop Powder -) 1 applic TP BID [facility] Last Admin: 01/25/20 10:10 Dose: 1 applic Documented by: Polyethylene Glycol (Miralax (For Daily Use) -) 17 gm PO BID PRN PRN Reason: CONSTIPATION Rosuvastatin Calcium (Crestor -) 10 mg PO [facility] Last Admin: 01/24/20 22:31 Dose: 10 mg Documented by: Tamsulosin HCl (Flomax -) 0.4 mg PO [facility] Last Admin: 01/24/20 22:31 Dose: 0.4 mg Documented by: Zinc Oxide (Desitin Diaper Rash Oint -) 1 applic TP ASDIR PRN PRN Reason: HYGEINE ason: HYGEINE Assessment/Plan Problem List - Problems (1) Weakness Code(s): R53.1 - WEAKNESS (2) Acute on chronic systolic (congestive) heart failure Code(s): I50.23 - ACUTE ON CHRONIC SYSTOLIC (CONGESTIVE) HEART FAILURE (3) CAD (coronary artery disease) Code(s): I25.10 - ATHSCL HEART DISEASE OF [place] CORONARY ARTERY W/O ANG PCTRS Qualifiers: Coronary Disease-Associated Artery/Lesion type: [place] artery [place] vs. transplanted heart: [place] heart Associated angina: without angina Qualified Code(s): I25.10 - Atherosclerotic heart disease of [place] coronary artery without angina pectoris (4) CKD (chronic kidney disease) Code(s): N18.9 - CHRONIC KIDNEY DISEASE, UNSPECIFIED Qualifiers: Chronic kidney disease stage: stage 3 (moderate) Qualified Code(s): N18.3 - Chronic kidney disease, stage 3 (moderate) (5) Hx of CABG Code(s): Z95.1 - PRESENCE OF AORTOCORONARY BYPASS GRAFT (6) Hypercholesterolemia Code(s): E78.0 - PURE HYPERCHOLESTEROLEMIA * DO NOT USE * (7) Hypothyroidism Code(s): E03.9 - HYPOTHYROIDISM, UNSPECIFIED Qualifiers: Hypothyroidism type: unspecified Qualified Code(s): E03.9 - Hypothyroidism, unspecified (8) ICD (implantable cardioverter-defibrillator) in place Code(s): Z95.810 - PRESENCE OF AUTOMATIC (IMPLANTABLE) CARDIAC DEFIBRILLATOR (9) Pleural effusion Code(s): J90 - PLEURAL EFFUSION, NOT ELSEWHERE CLASSIFIED Assessment/Plan 12/27/[address]: Large bilateral pleural effusion with compressive ATX R>L, no pulm masses, mild mediastinal LAD unchanged from 02/25/2019 12/27/2019 CXR Large right effusion, mild left 07/21/2016 echocardiography revealed moderately dilated LV with mild-moderate decrease in LV function, pacer RV, mild LAE, moderate MR, mild TR 08/02/2018 echocardiography revealed mild to moderately decreased LVEF 40-45%, normal RV size and function, mild LAE, mild MR, trace TR and AR 1. Gross hematuria, dysuria, suspected cystitis 2. 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 Acute on chronic systolic/diastolic failure with bilateral effusion, worsened SOB 4. UTI 5. CAD post CABG, angina pectoris 6. HTN 7. NIDDM 8. Hypercholesterolemia 9. 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 Carotid stenosis 11. Hypothyroidism 12. PAD post SPINDLE TESTER and amputation (TMA) 13. Macrocytic anemia 14. Thrombocytopenia 15. Sacral decubiti ulcer 16. Hypernatremia resolved 17. Moderate right pleural effusion PLAN: Cardiac same: 1. Decreased Furosemide 40 mg IV QD and monitor diuretic response, renal recovery and electrolytes 2. Restart ASA 81 mg QD pending hemostasis. Continue Carvedilol 3.125 mg BID (hold if hypotensive) and Rosuvastatin 10 mg QHS. Not on ARB due to CKD 3. Pulmonary input noted regarding diagnostic thoracentesis and its risk for the patient, mechanical DVT prophylaxis
--- NOTE | 2020-01-25 12:36 | PN ---
Progress Note, Physician Chief Complaint: more alert, ate a little better; had 1 episode hematuria over night - self limited (resolved now) d/w - she said she was not called by hospice nurse yet seen by vascular sx dr Youngblood - pt has sacral decub stage 2 superficial no debridement needed but topical cream / treatment, d/w staff; pt also has air mattress - Current Medication List Current Medications: Active Medications Acetaminophen (Tylenol -) 650 mg PO Q6H PRN PRN Reason: PAIN SCALE 1-6 Last Admin: 01/23/20 14:28 Dose: 650 mg Documented by: Amino Acids (Prosource No Carb Liquid Pkt) 30 ml PO BID@0800,1730 [facility] Last Admin: 01/25/20 10:10 Dose: Not Given Documented by: Ascorbic Acid (Vitamin C -) 500 mg PO DAILY [facility] Last Admin: 01/25/20 10:09 Dose: 500 mg Documented by: Bacitracin (Bacitracin -) 1 applic TP DAILY [facility] Last Admin: 01/25/20 10:10 Dose: 1 applic Documented by: Carvedilol (Coreg -) 3.125 mg PO BID [facility] Last Admin: 01/25/20 10:09 Dose: 3.125 mg Documented by: Cholecalciferol (Vitamin D3 -) 1,000 unit PO DAILY [facility] Last Admin: 01/25/20 10:09 Dose: 1,000 unit Documented by: Collagenase (Santyl -) 1 applic TP DAILY [facility]; Protocol Last Admin: 01/25/20 10:11 Dose: 1 applic Documented by: Famotidine (Pepcid -) 20 mg PO DAILY [facility] Last Admin: 01/25/20 10:10 Dose: 20 mg Documented by: Fentanyl (Sublimaze Injection -) 25 mcg IVPUSH [id number] PRN PRN Reason: PAIN-PACU ORDER X 4 DOSES ONLY Finasteride (Proscar -) 5 mg PO DAILY [facility] Last Admin: 01/25/20 10:10 Dose: 5 mg Documented by: Folic Acid (Folic Acid -) 1 mg PO DAILY [facility] Last Admin: 01/25/20 10:09 Dose: 1 mg Documented by: Furosemide (Lasix Injection -) 40 mg IVPUSH DAILY [facility] Last Admin: 01/25/20 10:10 Dose: 40 mg Documented by: Levothyroxine Sodium (Synthroid -) 75 mcg PO DAILY@0700 [facility] Last Admin: 01/25/20 06:19 Dose: 75 mcg Documented by: Lidocaine (Lidoderm Patch -) 1 patch TP DAILY@1630 PRN PRN Reason: PAIN Last Admin: 01/21/20 10:15 Dose: 1 patch Documented by: Miscellaneous (Lidoderm Patch Removal) 1 each MC DAILY@0430 [facility] Last Admin: 01/25/20 04:30 Dose: Not Given Documented by: Multivitamins/Minerals (Theragran-M) 1 each PO DAILY [facility] Last Admin: 01/25/20 10:09 Dose: 1 each Documented by: Nystatin (Nystop Powder -) 1 applic TP BID [facility] Last Admin: 01/25/20 10:10 Dose: 1 applic Documented by: Polyethylene Glycol (Miralax (For Daily Use) -) 17 gm PO BID PRN PRN Reason: CONSTIPATION Rosuvastatin Calcium (Crestor -) 10 mg PO [facility] Last Admin: 01/24/20 22:31 Dose: 10 mg Documented by: Tamsulosin HCl (Flomax -) 0.4 mg PO [facility] Last Admin: 01/24/20 22:31 Dose: 0.4 mg Documented by: Zinc Oxide (Desitin Diaper Rash Oint -) 1 applic TP ASDIR PRN PRN Reason: HYGEINE - Objective Vital Signs: Vital Signs Temperature 97.5 F L 01/25/20 06:00 Pulse Rate 72 01/25/20 06:00 Respiratory Rate 18 01/25/20 06:00 Blood Pressure 93/48 L 01/25/20 06:00 O2 Sat by Pulse Oximetry (%) 98 01/25/20 09:00 Constitutional: Yes: No Distress Eyes: Yes: Conjunctiva Clear HENT: Yes: Atraumatic Neck: Yes: Supple Cardiovascular: Yes: Regular Rate and Rhythm Respiratory: Yes: Diminished Gastrointestinal: Yes: Soft. No: Tenderness Genitourinary: Yes: Hematuria Musculoskeletal: No: Joint Stiffness, Joint Swelling Extremities: No: Cold, Cool Edema: No Integumentary: Yes: Bruising, Pressure Ulcer Neurological: Yes: Alert. No: Oriented Psychiatric: Yes: Alert. No: Oriented, Agitated Labs: CBC, BMP 01/25/20 07:33 01/25/20 07:33 INR, PTT INR 1.26 (0.83-1.09) H 06/29/20 01:24 - ....Imaging Other: Report Reviewed Assessment/Plan 89 yo M history CHF s/p AICD, CAD s/p stents, HTN, HL, CKD, BPH, hypothyroid admitted with hematuria, dysuria and passing clots; UCx enteroccocus; s/p Cystoscopy; pathology benign CHF / fluid OL on IV lasix; borderline hypotensive; decreased po intake renal and cardio f/u; CXR; labs; pulm f/u palliative care f/u DVT pfx - can not use sq heparin due to bleeding decubs PFX turn q1 hour; wounds care; air mattress; protein malnutrition - added po AA d/w pt's ; DNR DNI; eval for home hospice
--- NOTE | 2020-01-25 13:14 | PN ---
Progress Note, Physician Chief Complaint: Hematuria History of Present Illness: Seen and examined at the bedside awake and alert more interactive today no sob, cp, fever, chills making urine - Current Medication List Current Medications: Active Medications Acetaminophen (Tylenol -) 650 mg PO Q6H PRN PRN Reason: PAIN SCALE 1-6 Last Admin: 01/23/20 14:28 Dose: 650 mg Documented by: Amino Acids (Prosource No Carb Liquid Pkt) 30 ml PO BID@0800,1730 [facility] Last Admin: 01/25/20 10:10 Dose: Not Given Documented by: Ascorbic Acid (Vitamin C -) 500 mg PO DAILY [facility] Last Admin: 01/25/20 10:09 Dose: 500 mg Documented by: Bacitracin (Bacitracin -) 1 applic TP DAILY [facility] Last Admin: 01/25/20 10:10 Dose: 1 applic Documented by: Carvedilol (Coreg -) 3.125 mg PO BID [facility] Last Admin: 01/25/20 10:09 Dose: 3.125 mg Documented by: Cholecalciferol (Vitamin D3 -) 1,000 unit PO DAILY [facility] Last Admin: 01/25/20 10:09 Dose: 1,000 unit Documented by: Collagenase (Santyl -) 1 applic TP DAILY [facility]; Protocol Last Admin: 01/25/20 10:11 Dose: 1 applic Documented by: Famotidine (Pepcid -) 20 mg PO DAILY [facility] Last Admin: 01/25/20 10:10 Dose: 20 mg Documented by: Fentanyl (Sublimaze Injection -) 25 mcg IVPUSH [id number] PRN PRN Reason: PAIN-PACU ORDER X 4 DOSES ONLY Finasteride (Proscar -) 5 mg PO DAILY [facility] Last Admin: 01/25/20 10:10 Dose: 5 mg Documented by: Folic Acid (Folic Acid -) 1 mg PO DAILY [facility] Last Admin: 01/25/20 10:09 Dose: 1 mg Documented by: Furosemide (Lasix Injection -) 40 mg IVPUSH DAILY [facility] Last Admin: 01/25/20 10:10 Dose: 40 mg Documented by: Levothyroxine Sodium (Synthroid -) 75 mcg PO DAILY@0700 [facility] Last Admin: 01/25/20 06:19 Dose: 75 mcg Documented by: Lidocaine (Lidoderm Patch -) 1 patch TP DAILY@1630 PRN PRN Reason: PAIN Last Admin: 01/21/20 10:15 Dose: 1 patch Documented by: Miscellaneous (Lidoderm Patch Removal) 1 each MC DAILY@0430 [facility] Last Admin: 01/25/20 04:30 Dose: Not Given Documented by: Multivitamins/Minerals (Theragran-M) 1 each PO DAILY [facility] Last Admin: 01/25/20 10:09 Dose: 1 each Documented by: Nystatin (Nystop Powder -) 1 applic TP BID [facility] Last Admin: 01/25/20 10:10 Dose: 1 applic Documented by: Polyethylene Glycol (Miralax (For Daily Use) -) 17 gm PO BID PRN PRN Reason: CONSTIPATION Rosuvastatin Calcium (Crestor -) 10 mg PO [facility] Last Admin: 01/24/20 22:31 Dose: 10 mg Documented by: Tamsulosin HCl (Flomax -) 0.4 mg PO HS [facility] Last Admin: 01/24/20 22:31 Dose: 0.4 mg Documented by: Zinc Oxide (Desitin Diaper Rash Oint -) 1 applic TP ASDIR PRN PRN Reason: HYGEINE - Objective Vital Signs: Vital Signs Temperature 97.5 F L 01/25/20 06:00 Pulse Rate 72 01/25/20 06:00 Respiratory Rate 18 01/25/20 06:00 Blood Pressure 93/48 L 01/25/20 06:00 O2 Sat by Pulse Oximetry (%) 98 01/25/20 09:00 Constitutional: Yes: No Distress Neck: Yes: Supple Cardiovascular: Yes: Regular Rate and Rhythm Respiratory: Yes: Regular, Diminished Gastrointestinal: Yes: Soft Extremities: No: Cyanosis Edema: No Neurological: Yes: Alert Labs: CBC, BMP 01/25/20 07:33 01/25/20 07:33 INR, PTT INR 1.26 (0.83-1.09) H 01/13/20 01:24 Assessment/Plan 89 year old male with history of CKD stage 4 (baseline Cr 1.7-2.2), CAD s/p CABG, BPH, CHF 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 1. CKD stage 4 2. Dysuria/Suspected cystitis 3. CAD s/p CABG 4. 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 Acute on chronic anemia Renal function stable There are no overt electrolyte or acid based disturbance is noted. Continue IV Lasix once daily Titrate oxygen as needed. Pulmonary and cardiology follow-up. Trend renal function and electrolytes daily. DNR/DNI, supportive care Oscar Madrid DO
[2020-01-25] MEDS: TAMSULOSIN HCL 0.4 MG CAP PO SCH (22:12)
[2020-01-25] MEDS: ROSUVASTATIN CA 10 MG TABLET (FP) PO SCH (22:12)
[2020-01-26] MEDS: LIDOCAINE PATCH REMOVAL MC SCH (05:00)
[2020-01-26] MEDS: LEVOTHYROXINE NA 75 MCG TABLET (FP) PO SCH (06:22)
--- NOTE | 2020-01-26 07:45 | PN ---
Progress Note, Physician History of Present Illness: pulmonary no change,lethargic,-resp distress - Current Medication List Current Medications: Active Medications Acetaminophen (Tylenol -) 650 mg PO Q6H PRN PRN Reason: PAIN SCALE 1-6 Last Admin: 01/23/20 14:28 Dose: 650 mg Documented by: Amino Acids (Prosource No Carb Liquid Pkt) 30 ml PO BID@0800,1730 [facility] BEDS AT [facility] Last Admin: 01/25/20 16:52 Dose: 30 ml Documented by: Ascorbic Acid (Vitamin C -) 500 mg PO DAILY [facility]S [facility] Last Admin: 01/25/20 10:09 Dose: 500 mg Documented by: Bacitracin (Bacitracin -) 1 applic TP DAILY [facility]S [facility] Last Admin: 01/25/20 10:10 Dose: 1 applic Documented by: Carvedilol (Coreg -) 3.125 mg PO BID [facility] 234 B[facility]S [facility] Last Admin: 01/25/20 22:12 Dose: 3.125 mg Documented by: Cholecalciferol (Vitamin D3 -) 1,000 unit PO DAILY [facility] 234 B[facility]S [facility] Last Admin: 01/25/20 10:09 Dose: 1,000 unit Documented by: Collagenase (Santyl -) 1 applic TP DAILY [facility] 234 B[facility]S [facility]; Protocol Last Admin: 01/25/20 10:11 Dose: 1 applic Documented by: Famotidine (Pepcid -) 20 mg PO DAILY [facility] 234 B[facility]S [facility] Last Admin: 01/25/20 10:10 Dose: 20 mg Documented by: Fentanyl (Sublimaze Injection -) 25 mcg IVPUSH [id number] PRN PRN Reason: PAIN-PACU ORDER X 4 DOSES ONLY Finasteride (Proscar -) 5 mg PO DAILY [facility]S [facility] Last Admin: 01/25/20 10:10 Dose: 5 mg Documented by: Folic Acid (Folic Acid -) 1 mg PO DAILY [facility] 234 B[facility]S [facility] Last Admin: 01/25/20 10:09 Dose: 1 mg Documented by: Furosemide (Lasix Injection -) 40 mg IVPUSH DAILY [facility] 234 B[facility]S [facility] Last Admin: 01/25/20 10:10 Dose: 40 mg Documented by: Levothyroxine Sodium (Synthroid -) 75 mcg PO DAILY@0700 [facility] 234 BEDS [facility] Last Admin: 01/26/20 06:22 Dose: 75 mcg Documented by: Lidocaine (Lidoderm Patch -) 1 patch TP DAILY@1630 PRN PRN Reason: PAIN Last Admin: 01/21/20 10:15 Dose: 1 patch Documented by: Miscellaneous (Lidoderm Patch Removal) 1 each MC DAILY@0430 [facility] 234 BEDS [facility] Last Admin: 01/26/20 05:00 Dose: 1 each Documented by: Multivitamins/Minerals (Theragran-M) 1 each PO DAILY [facility] B[facility]S [facility] Last Admin: 01/25/20 10:09 Dose: 1 each Documented by: Nystatin (Nystop Powder -) 1 applic TP BID [facility] 234 B[facility]S [facility] Last Admin: 01/25/20 22:12 Dose: 1 applic Documented by: Polyethylene Glycol (Miralax (For Daily Use) -) 17 gm PO BID PRN PRN Reason: CONSTIPATION Rosuvastatin Calcium (Crestor -) 10 mg PO [facility] Last Admin: 01/25/20 22:12 Dose: 10 mg Documented by: Tamsulosin HCl (Flomax -) 0.4 mg PO [facility] Last Admin: 01/25/20 22:12 Dose: 0.4 mg Documented by: Zinc Oxide (Desitin Diaper Rash Oint -) 1 applic TP ASDIR PRN PRN Reason: HYGEINE - Objective Vital Signs: Vital Signs Temperature 97.2 F L 01/26/20 03:00 Pulse Rate 69 01/26/20 03:00 Respiratory Rate 20 01/26/20 03:00 Blood Pressure 91/40 L 01/26/20 03:00 O2 Sat by Pulse Oximetry (%) 100 01/25/20 22:00 Constitutional: Yes: Thin, Other (lethargic) Eyes: Yes: WNL HENT: Yes: WNL Neck: Yes: WNL Cardiovascular: Yes: Regular Rate and Rhythm, S1, S2 Respiratory: Yes: Diminished Gastrointestinal: Yes: Normal Bowel Sounds, Soft Extremities: Yes: WNL Labs: CBC, BMP 01/25/20 07:33 01/25/20 07:33 INR, PTT INR 1.26 (0.83-1.09) H 01/13/20 01:24 Assessment/Plan Problem List - Problems (1) CKD (chronic kidney disease) Code(s): N18.9 - CHRONIC KIDNEY DISEASE, UNSPECIFIED Qualifiers: Chronic kidney disease stage: unspecified stage Qualified Code(s): N18.9 - Chronic kidney disease, unspecified (2) Hematuria Code(s): R31.9 - HEMATURIA, UNSPECIFIED Qualifiers: Hematuria type: gross Qualified Code(s): R31.0 - Gross hematuria (3) ASHLYN (acute kidney injury) Code(s): N17.9 - ACUTE KIDNEY FAILURE, UNSPECIFIED (4) ASHD (arteriosclerotic heart disease) Code(s): I25.10 - ATHSCL HEART DISEASE OF [place] CORONARY ARTERY W/O ANG PCTRS (5) Anemia Code(s): D64.9 - ANEMIA, UNSPECIFIED Qualifiers: Anemia type: unspecified type Qualified Code(s): D64.9 - Anemia, uns pecified (6) Anxiety Code(s): F41.9 - ANXIETY DISORDER, UNSPECIFIED (7) BPH (benign prostatic hyperplasia) Code(s): N40.0 - BENIGN PROSTATIC HYPERPLASIA WITHOUT LOWER URINRY TRACT SYMP (8) Bilateral leg edema Code(s): R60.0 - LOCALIZED EDEMA (9) CAD (coronary artery disease) Code(s): I25.10 - ATHSCL HEART DISEASE OF [place] CORONARY ARTERY W/O ANG PCTRS Qualifiers: Coronary Disease-Associated Artery/Lesion type: [place] artery [place] vs. transplanted heart: [place] heart Associated angina: without angina Qualified Code(s): I25.10 - Atherosclerotic heart disease of [place] coronary artery without angina pectoris (10) CHF (congestive heart failure) Code(s): I50.9 - HEART FAILURE, UNSPECIFIED (11) CHF exacerbation Code(s): I50.9 - HEART FAILURE, UNSPECIFIED (12) COPD (chronic obstructive pulmonary disease) Code(s): J44.9 - CHRONIC OBSTRUCTIVE PULMONARY DISEASE, UNSPECIFIED Qualifiers: COPD type: unspecified COPD Qualified Code(s): J44.9 - Chronic obstructive pulmonary disease, unspecified (13) Carotid artery disease Code(s): I77.9 - DISORDER OF ARTERIES AND ARTERIOLES, UNSPECIFIED (14) Chronic renal failure Code(s): N18.9 - CHRONIC KIDNEY DISEASE, UNSPECIFIED (15) Chronic systolic heart failure Code(s): I50.22 - CHRONIC SYSTOLIC (CONGESTIVE) HEART FAILURE (16) Cough Code(s): R05 - COUGH (17) Diabetes mellitus Code(s): E11.9 - TYPE 2 DIABETES MELLITUS WITHOUT COMPLICATIONS (18) Dyspnea Code(s): R06.00 - DYSPNEA, UNSPECIFIED Qualifiers: (19) [place] (hard of hearing) Code(s): H91.90 - UNSPECIFIED HEARING LOSS, UNSPECIFIED EAR (20) HTN (hypertension) Code(s): I10 - ESSENTIAL (PRIMARY) HYPERTENSION Qualifiers: (21) History of ischemic colitis Code(s): Z87.19 - PERSONAL HISTORY OF OTHER DISEASES OF THE DIGESTIVE SYSTEM (22) Hx of BKA Code(s): Z89.519 - ACQUIRED ABSENCE OF UNSPECIFIED LEG BELOW KNEE (23) Hx of CABG Code(s): Z95.1 - PRESENCE OF AORTOCORONARY BYPASS GRAFT (24) Hypercholesterolemia Code(s): E78.0 - PURE HYPERCHOLESTEROLEMIA * DO NOT USE * (25) Hypoalbuminemia Code(s): E88.09 - OTH DISORDERS OF PLASMA-PROTEIN METABOLISM, NEC (26) Hypothyroidism Code(s): E03.9 - HYPOTHYROIDISM, UNSPECIFIED Qualifiers: Hypothyroidism type: unspecified Qualified Code(s): E03.9 - Hypothyroidism, unspecified (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 Code(s): Z95.810 - PRESENCE OF AUTOMATIC (IMPLANTABLE) CARDIAC DEFIBRILLATOR (28) PVD (peripheral vascular disease) Code(s): I73.9 - PERIPHERAL VASCULAR DISEASE, UNSPECIFIED (29) Peripheral arterial disease Code(s): I73.9 - PERIPHERAL VASCULAR DISEASE, UNSPECIFIED (30) Pleural effusion Code(s): J90 - PLEURAL EFFUSION, NOT ELSEWHERE CLASSIFIED (31) Urinary retention Code(s): R33.9 - RETENTION OF URINE, UNSPECIFIED Assessment/Plan IV Lasix 40mg VM O2 to maintain saturation Aspiration precautions Follow CXR Monitor lytes,renal function DR NAVARRO Problem List - Problems (1) CKD (chronic kidney disease) Code(s): N18.9 - CHRONIC KIDNEY DISEASE, UNSPECIFIED Qualifiers: Chronic kidney disease stage: unspecified stage Qualified Code(s): N18.9 - Chronic kidney disease, unspecified (2) Hematuria Code(s): R31.9 - HEMATURIA, UNSPECIFIED Qualifiers: Hematuria type: gross Qualified Code(s): R31.0 - Gross hematuria (3) ASHLYN (acute kidney injury) Code(s): N17.9 - ACUTE KIDNEY FAILURE, UNSPECIFIED (4) ASHD (arteriosclerotic heart disease) Code(s): I25.10 - ATHSCL HEART DISEASE OF [place] CORONARY ARTERY W/O ANG PCTRS (5) Anemia Code(s): D64.9 - ANEMIA, UNSPECIFIED Qualifiers: Anemia type: unspecified type Qualified Code(s): D64.9 - Anemia, unspecified (6) Anxiety Code(s): F41.9 - ANXIETY DISORDER, UNSPECIFIED (7) BPH (benign prostatic hyperplasia) Code(s): N40.0 - BENIGN PROSTATIC HYPERPLASIA WITHOUT LOWER URINRY TRACT SYMP (8) Bilateral leg edema Code(s): R60.0 - LOCALIZED EDEMA (9) CAD (coronary artery disease) Code(s): I25.10 - ATHSCL HEART DISEASE OF [place] CORONARY ARTERY W/O ANG PCTRS Qualifiers: Coronary Disease-Associated Artery/Lesion type: [place] artery [place] vs. transplanted heart: [place] heart Associated angina: without angina Qualified Code(s): I25.10 - Atherosclerotic heart disease of [place] coronary artery without angina pectoris (10) CHF (congestive heart failure) Code(s): I50.9 - HEART FAILURE, UNSPECIFIED (11) CHF exacerbation Code(s): I50.9 - HEART FAILURE, UNSPECIFIED (12) COPD (chronic obstructive pulmonary disease) Code(s): J44.9 - CHRONIC OBSTRUCTIVE PULMONARY DISEASE, UNSPECIFIED Qualifiers: COPD type: unspecified COPD Qualified Code(s): J44.9 - Chronic obstructive pulmonary disease, unspecified (13) Carotid artery disease Code(s): I77.9 - DISORDER OF ARTERIES AND ARTERIOLES, UNSPECIFIED (14) Chronic renal failure Code(s): N18.9 - CHRONIC KIDNEY DISEASE, UNSPECIFIED (15) Chronic systolic heart failure Code(s): I50.22 - CHRONIC SYSTOLIC (CONGESTIVE) HEART FAILURE (16) Cough Code(s): R05 - COUGH (17) Diabetes mellitus Code(s): E11.9 - TYPE 2 DIABETES MELLITUS WITHOUT COMPLICATIONS (18) Dyspnea Code(s): R06.00 - DYSPNEA, UNSPECIFIED Qualifiers: (19) [place] (hard of hearing) Code(s): H91.90 - UNSPECIFIED HEARING LOSS, UNSPECIFIED EAR (20) HTN (hypertension) Code(s): I10 - ESSENTIAL (PRIMARY) HYPERTENSION Qualifiers: (21) History of ischemic colitis Code(s): Z87.19 - PERSONAL HISTORY OF OTHER DISEASES OF THE DIGESTIVE SYSTEM (22) Hx of BKA Code(s): Z89.519 - ACQUIRED ABSENCE OF UNSPECIFIED LEG BELOW KNEE (23) Hx of CABG Code(s): Z95.1 - PRESENCE OF AORTOCORONARY BYPASS GRAFT (24) Hypercholesterolemia Code(s): E78.0 - PURE HYPERCHOLESTEROLEMIA * DO NOT USE * (25) Hypoalbuminemia Code(s): E88.09 - OTH DISORDERS OF PLASMA-PROTEIN METABOLISM, NEC (26) Hypothyroidism Code(s): E03.9 - HYPOTHYROIDISM, UNSPECIFIED Qualifiers: Hypothyroidism type: unspecified Qualified Code(s): E03.9 - Hypothyroidism, unspecified (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 Code(s): Z95.810 - PRESENCE OF AUTOMATIC (IMPLANTABLE) CARDIAC DEFIBRILLATOR (28) PVD (peripheral vascular disease) Code(s): I73.9 - PERIPHERAL VASCULAR DISEASE, UNSPECIFIED (29) Peripheral arterial disease Code(s): I73.9 - PERIPHERAL VASCULAR DISEASE, UNSPECIFIED (30) Pleural effusion Code(s): J90 - PLEURAL EFFUSION, NOT ELSEWHERE CLASSIFIED (31) Urinary retention Code(s): R33.9 - RETENTION OF URINE, UNSPECIFIED
[2020-01-26 08:43] LABS: CALCIUM 8.2 mg/dL (8.5-10.1); CREATININE 2.3 mg/dL (0.55-1.3); MAGNESIUM 1.9 mg/dL (1.8-2.4); PHOSPHOROUS 2.9 mg/dL (2.5-4.9); POTASSIUM 3.4 mmol/L (3.5-5.1)
--- NOTE | 2020-01-26 09:18 | PN ---
Progress Note (short form) - Note Progress Note: he patient is an 89 year old white male, with a significant past medical history of mild-moderate systolic CHF, s/p CABG, s/p ICD, HTN, recurrent UTIs secondary, DM, PAD s/p left transmetatarsal amputation, on home O2 2L (only at night), dementia, who presented with dysuria, urgency, frequency and gross hematuria and noted to have Cr of 2.4. Renal sono with mild left hydro, bladder sono likely with large clot. Urine currently pink on CBI. Denies any flank pain, fever, chills, CP or shortness of breath, leg swelling. Appetite has been poor, more lethargic, opens eyes but not following commands, not interactive, Hgb 7.2 despite receiving 4 u pRBC transfusion. 01/16/2020 Underwent cysto, evacuation of clot,, bladder biopsy, urologist noted erythema in bladder. prostatic bleeding 01/22/2020 Demadex switched to IV Lasix yesterday for increased SOB, currently b eing fed lunch 01/23/2020 Less tachypneic today and more arousable on VM O2. 01/23: no acute cardiac events 01/24: No significant changes 01/25: No acute cardiac issues; Vital Signs Temperature 97.2 F L 01/26/20 06:00 Pulse Rate 69 01/26/20 06:00 Respiratory Rate 20 01/26/20 06:00 Blood Pressure 91/40 L 01/26/20 06:00 O2 Sat by Pulse Oximetry (%) 100 01/25/20 22:00 Cardiovascular: Yes: Regular Rate and Rhythm Respiratory: Yes: Diminished, On Nasal O2 Gastrointestinal: Yes: Soft Extremities: No: Cyanosis Edema: No Labs: CBC, BMP 01/25/20 07:33 01/26/20 07:54 Active Medications Acetaminophen (Tylenol -) 650 mg PO Q6H PRN PRN Reason: PAIN SCALE 1-6 Last Admin: 01/23/20 14:28 Dose: 650 mg Documented by: Amino Acids (Prosource No Carb Liquid Pkt) 30 ml PO BID@0800,1730 [facility] Last Admin: 01/25/20 10:10 Dose: Not Given Documented by: Amoxicillin (Amoxicillin -) 500 mg PO BID [facility] Last Admin: 01/25/20 10:09 Dose: 500 mg Documented by: Ascorbic Acid (Vitamin C -) 500 mg PO DAILY [facility] Last Admin: 01/25/20 10:09 Dose: 500 mg Documented by: Bacitracin (Bacitracin -) 1 applic TP DAILY [facility] Last Admin: 01/25/20 10:10 Dose: 1 applic Documented by: Carvedilol (Coreg -) 3.125 mg PO BID [facility] Last Admin: 01/25/20 10:09 Dose: 3.125 mg Documented by: Cholecalciferol (Vitamin D3 -) 1,000 unit PO DAILY [facility] Last Admin: 01/25/20 10:09 Dose: 1,000 unit Documented by: Collagenase (Santyl -) 1 applic TP DAILY [facility]; Protocol Last Admin: 01/25/20 10:11 Dose: 1 applic Documented by: Famotidine (Pepcid -) 20 mg PO DAILY [facility] Last Admin: 01/25/20 10:10 Dose: 20 mg Documented by: Fentanyl (Sublimaze Injection -) 25 mcg IVPUSH [id number] PRN PRN Reason: PAIN-PACU ORDER X 4 DOSES ONLY Finasteride (Proscar -) 5 mg PO DAILY [facility] [place] Last Admin: 01/25/20 10:10 Dose: 5 mg Documented by: Folic Acid (Folic Acid -) 1 mg PO DAILY [facility] [place] Last Admin: 01/25/20 10:09 Dose: 1 mg Documented by: Furosemide (Lasix Injection -) 40 mg IVPUSH DAILY [facility] Last Admin: 01/25/20 10:10 Dose: 40 mg Documented by: Levothyroxine Sodium (Synthroid -) 75 mcg PO DAILY@0700 [facility] Last Admin: 01/25/20 06:19 Dose: 75 mcg Documented by: Lidocaine (Lidoderm Patch -) 1 patch TP DAILY@1630 PRN PRN Reason: PAIN Last Admin: 01/21/20 10:15 Dose: 1 patch Documented by: Miscellaneous (Lidoderm Patch Removal) 1 each MC DAILY@0430 [facility] Last Admin: 01/25/20 04:30 Dose: Not Given Documented by: Multivitamins/Minerals (Theragran-M) 1 each PO DAILY [facility] [place] Last Admin: 01/25/20 10:09 Dose: 1 each Documented by: Nystatin (Nystop Powder -) 1 applic TP BID [facility] Last Admin: 01/25/20 10:10 Dose: 1 applic Documented by: Polyethylene Glycol (Miralax (For Daily Use) -) 17 gm PO BID PRN PRN Reason: CONSTIPATION Rosuvastatin Calcium (Crestor -) 10 mg PO HS [facility] [place] Last Admin: 01/24/20 22:31 Dose: 10 mg Documented by: Tamsulosin HCl (Flomax -) 0.4 mg PO HS [facility] Last Admin: 01/24/20 22:31 Dose: 0.4 mg Documented by: Zinc Oxide (Desitin Diaper Rash Oint -) 1 applic TP ASDIR PRN PRN Reason: HYGEINE ason: HYGEINE Assessment/Plan Problem List - Problems (1) Weakness Code(s): R53.1 - WEAKNESS (2) Acute on chronic systolic (congestive) heart failure Code(s): I50.23 - ACUTE ON CHRONIC SYSTOLIC (CONGESTIVE) HEART FAILURE (3) CAD (coronary artery disease) Code(s): I25.10 - ATHSCL HEART DISEASE OF [place] CORONARY ARTERY W/O ANG PCTRS Qualifiers: Coronary Disease-Associated Artery/Lesion type: [place] artery [place] vs. transplanted heart: [place] heart Associated angina: without angina Qualified Code(s): I25.10 - Atherosclerotic heart disease of [place] coronary artery withou t angina pectoris (4) CKD (chronic kidney disease) Code(s): N18.9 - CHRONIC KIDNEY DISEASE, UNSPECIFIED Qualifiers: Chronic kidney disease stage: stage 3 (moderate) Qualified Code(s): N18.3 - Chronic kidney disease, stage 3 (moderate) (5) Hx of CABG Code(s): Z95.1 - PRESENCE OF AORTOCORONARY BYPASS GRAFT (6) Hypercholesterolemia Code(s): E78.0 - PURE HYPERCHOLESTEROLEMIA * DO NOT USE * (7) Hypothyroidism Code(s): E03.9 - HYPOTHYROIDISM, UNSPECIFIED Qualifiers: Hypothyroidism type: unspecified Qualified Code(s): E03.9 - Hypothyroidism, unspecified (8) ICD (implantable cardioverter-defibrillator) in place Code(s): Z95.810 - PRESENCE OF AUTOMATIC (IMPLANTABLE) CARDIAC DEFIBRILLATOR (9) Pleural effusion Code(s): J90 - PLEURAL EFFUSION, NOT ELSEWHERE CLASSIFIED Assessment/Plan 12/27/[address]: Large bilateral pleural effusion with compressive ATX R>L, no pulm masses, mild mediastinal LAD unchanged from 02/25/2019 12/27/2019 CXR Large right effusion, mild left 07/21/2016 echocardiography revealed moderately dilated LV with mild-moderate decrease in LV function, pacer RV, mild LAE, moderate MR, mild TR 08/02/2018 echocardiography revealed mild to moderately decreased LVEF 40-45%, normal RV size and function, mild LAE, mild MR, trace TR and AR 1. Gross hematuria, dysuria, suspected cystitis 2. 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 Acute on chronic systolic/diastolic failure with bilateral effusion, worsened SOB 4. UTI 5. CAD post CABG, angina pectoris 6. HTN 7. NIDDM 8. Hypercholesterolemia 9. 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 Carotid stenosis 11. Hypothyroidism 12. PAD post RELATIONS SPECIALIST and amputation (TMA) 13. Macrocytic anemia 14. Thrombocytopenia 15. Sacral decubiti ulcer 16. Hypernatremia resolved 17. Moderate right pleural effusion PLAN: Cardiac same: 1. Decreased Furosemide 40 mg IV QD and monitor diuretic response, renal recovery and electrolytes 2. Restart ASA 81 mg QD pending hemostasis. Continue Carvedilol 3.125 mg BID (hold if hypotensive) and Rosuvastatin 10 mg QHS. Not on ARB due to CKD 3. Pulmonary input noted regarding diagnostic thoracentesis and its risk for the patient, mechanical DVT prophylaxis
[2020-01-26] MEDS: AMINO ACIDS/PROTEIN HYDROLYS 30 ML LIQUID.PKT PO SCH ×2 (09:54→16:58)
[2020-01-26] MEDS: MULTIVITAMINS THER W-MINERALS COMBO TABLET (FP) PO SCH (09:56)
[2020-01-26] MEDS: CHOLECALCIFEROL (VIT D3) 1,000 UNIT (25 MCG) TABLET PO SCH (09:56)
[2020-01-26] MEDS: ASCORBIC ACID 500 MG TABLET (FP) PO SCH (09:56)
[2020-01-26] MEDS: FAMOTIDINE 20 MG TABLET PO SCH (09:56)
[2020-01-26] MEDS: FINASTERIDE 5 MG TABLET (FP) PO SCH (09:56)
[2020-01-26] MEDS: FOLIC ACID 1 MG TABLET (FP) PO SCH (09:56)
[2020-01-26] MEDS: CARVEDILOL 3.125 MG TABLET (FP) PO SCH ×2 (09:56→21:35)
[2020-01-26] MEDS: NYSTATIN POWDER 100,000 UNITS/GM - 15 GM TOPICAL POWDER TP SCH ×2 (09:57→21:35)
[2020-01-26] MEDS: BACITRACIN 15 GM TUBE TOPICAL OINTMENT TP SCH (09:57)
[2020-01-26] MEDS: FUROSEMIDE 40 MG/4 ML INJECTABLE VIAL IVPUSH SCH ×2 (09:57→12:19)
[2020-01-26] MEDS: COLLAGENASE CLOSTRIDIUM HIST. 30 GRAMS TUBE TP SCH (09:58)
[2020-01-26] MEDS ORDERED: POTASSIUM CHLORIDE ORAL LIQUID 20 MEQ/15 ML PO ONE (11:30)
--- NOTE | 2020-01-26 11:54 | PN ---
Progress Note, Physician Chief Complaint: stable no new co ate a little more no SOB - Current Medication List Current Medications: Active Medications Acetaminophen (Tylenol -) 650 mg PO Q6H PRN PRN Reason: PAIN SCALE 1-6 Last Admin: 01/23/20 14:28 Dose: 650 mg Documented by: Amino Acids (Prosource No Carb Liquid Pkt) 30 ml PO BID@0800,1730 [facility] Last Admin: 01/26/20 09:54 Dose: 30 ml Documented by: Ascorbic Acid (Vitamin C -) 500 mg PO DAILY [facility] Last Admin: 01/26/20 09:56 Dose: 500 mg Documented by: Bacitracin (Bacitracin -) 1 applic TP DAILY [facility] Last Admin: 01/26/20 09:57 Dose: 1 applic Documented by: Carvedilol (Coreg -) 3.125 mg PO BID [facility] Last Admin: 01/26/20 09:56 Dose: Not Given Documented by: Cholecalciferol (Vitamin D3 -) 1,000 unit PO DAILY [facility] Last Admin: 01/26/20 09:56 Dose: 1,000 unit Documented by: Collagenase (Santyl -) 1 applic TP DAILY [facility]; Protocol Last Admin: 01/26/20 09:58 Dose: 1 applic Documented by: Famotidine (Pepcid -) 20 mg PO DAILY [facility] Last Admin: 01/26/20 09:56 Dose: 20 mg Documented by: Fentanyl (Sublimaze Injection -) 25 mcg IVPUSH [id number] PRN PRN Reason: PAIN-PACU ORDER X 4 DOSES ONLY Finasteride (Proscar -) 5 mg PO DAILY [facility] Last Admin: 01/26/20 09:56 Dose: 5 mg Documented by: Folic Acid (Folic Acid -) 1 mg PO DAILY [facility] Last Admin: 01/26/20 09:56 Dose: 1 mg Documented by: Furosemide (Lasix Injection -) 40 mg IVPUSH DAILY [facility] Last Admin: 01/26/20 09:57 Dose: Not Given Documented by: Levothyroxine Sodium (Synthroid -) 75 mcg PO DAILY@0700 [facility] Last Admin: 01/26/20 06:22 Dose: 75 mcg Documented by: Lidocaine (Lidoderm Patch -) 1 patch TP DAILY@1630 PRN PRN Reason: PAIN Last Admin: 01/21/20 10:15 Dose: 1 patch Documented by: Miscellaneous (Lidoderm Patch Removal) 1 each MC DAILY@0430 [facility] Last Admin: 01/26/20 05:00 Dose: 1 each Documented by: Multivitamins/Minerals (Theragran-M) 1 each PO DAILY [facility] Last Admin: 01/26/20 09:56 Dose: 1 each Documented by: Nystatin (Nystop Powder -) 1 applic TP BID [facility] Last Admin: 01/26/20 09:57 Dose: 1 applic Documented by: Polyethylene Glycol (Miralax (For Daily Use) -) 17 gm PO BID PRN PRN Reason: CONSTIPATION Rosuvastatin Calcium (Crestor -) 10 mg PO [facility] Last Admin: 01/25/20 22:12 Dose: 10 mg Documented by: Tamsulosin HCl (Flomax -) 0.4 mg PO [facility] Last Admin: 01/25/20 22:12 Dose: 0.4 mg Documented by: Zinc Oxide (Desitin Diaper Rash Oint -) 1 applic TP ASDIR PRN PRN Reason: HYGEINE - Objective Vital Signs: Vital Signs Temperature 97.2 F L 01/26/20 06:00 Pulse Rate 68 01/26/20 10:00 Respiratory Rate 20 01/26/20 10:00 Blood Pressure 86/48 L 01/26/20 10:00 O2 Sat by Pulse Oximetry (%) 96 01/26/20 10:00 Constitutional: Yes: No Distress Eyes: Yes: Conjunctiva Clear HENT: Yes: Atraumatic Neck: Yes: Supple Cardiovascular: Yes: Regular Rate and Rhythm Respiratory: Yes: Diminished Gastrointestinal: Yes: Soft. No: Tenderness Genitourinary: No: Hematuria Musculoskeletal: No: Joint Stiffness, Joint Swelling Extremities: No: Cold, Cool, Cyanosis Edema: No Integumentary: Yes: Bruising, Pressure Ulcer Neurological: Yes: Alert Psychiatric: Yes: Alert. No: Agitated Labs: CBC, BMP 01/25/20 07:33 01/26/20 07:54 INR, PTT INR 1.26 (0.83-1.09) H 01/13/20 01:24 - ....Imaging Other: Report Reviewed Assessment/Plan 89 yo M history CHF s/p AICD, CAD s/p stents, HTN, HL, CKD, BPH, hypothyroid admitted with hematuria, dysuria and passing clots; UCx enteroccocus; s/p Cystoscopy; pathology benign CHF / fluid OL on IV lasix; borderline hypotensive; decreased po intake renal and cardio f/u; CXR; labs; pulm f/u palliative care f/u DVT pfx - can not use sq heparin due to bleeding decubs PFX turn q1 hour; wounds care; air mattress; protein malnutrition - added po AA d/w pt's ; DNR DNI; eval for home hospice; pt will have private [place] few hours a day
--- NOTE | 2020-01-26 12:06 | PN ---
Progress Note, Physician Chief Complaint: Hematuria History of Present Illness: Seen and examined at the bedside sleeping/groggy more lethargic today BP is low making urine - Current Medication List Current Medications: Active Medications Acetaminophen (Tylenol -) 650 mg PO Q6H PRN PRN Reason: PAIN SCALE 1-6 Last Admin: 01/23/20 14:28 Dose: 650 mg Documented by: Amino Acids (Prosource No Carb Liquid Pkt) 30 ml PO BID@0800,1730 [facility] Last Admin: 01/26/20 09:54 Dose: 30 ml Documented by: Ascorbic Acid (Vitamin C -) 500 mg PO DAILY [facility] Last Admin: 01/26/20 09:56 Dose: 500 mg Documented by: Bacitracin (Bacitracin -) 1 applic TP DAILY [facility] Last Admin: 01/26/20 09:57 Dose: 1 applic Documented by: Carvedilol (Coreg -) 3.125 mg PO BID [facility] Last Admin: 01/26/20 09:56 Dose: Not Given Documented by: Cholecalciferol (Vitamin D3 -) 1,000 unit PO DAILY [facility] Last Admin: 01/26/20 09:56 Dose: 1,000 unit Documented by: Collagenase (Santyl -) 1 applic TP DAILY [facility]; Protocol Last Admin: 01/26/20 09:58 Dose: 1 applic Documented by: Famotidine (Pepcid -) 20 mg PO DAILY [facility] Last Admin: 01/26/20 09:56 Dose: 20 mg Documented by: Fentanyl (Sublimaze Injection -) 25 mcg IVPUSH [id number] PRN PRN Reason: PAIN-PACU ORDER X 4 DOSES ONLY Finasteride (Proscar -) 5 mg PO DAILY [facility] Last Admin: 01/26/20 09:56 Dose: 5 mg Documented by: Folic Acid (Folic Acid -) 1 mg PO DAILY [facility] Last Admin: 01/26/20 09:56 Dose: 1 mg Documented by: Furosemide (Lasix Injection -) 40 mg IVPUSH DAILY [facility] Last Admin: 01/26/20 09:57 Dose: Not Given Documented by: Levothyroxine Sodium (Synthroid -) 75 mcg PO DAILY@0700 [facility] Last Admin: 01/26/20 06:22 Dose: 75 mcg Documented by: Lidocaine (Lidoderm Patch -) 1 patch TP DAILY@1630 PRN PRN Reason: PAIN Last Admin: 01/21/20 10:15 Dose: 1 patch Documented by: Miscellaneous (Lidoderm Patch Removal) 1 each MC DAILY@0430 [facility] Last Admin: 01/26/20 05:00 Dose: 1 each Documented by: Multivitamins/Minerals (Theragran-M) 1 each PO DAILY [facility] Last Admin: 01/26/20 09:56 Dose: 1 each Documented by: Nystatin (Nystop Powder -) 1 applic TP BID [facility] Last Admin: 01/26/20 09:57 Dose: 1 applic Documented by: Polyethylene Glycol (Miralax (For Daily Use) -) 17 gm PO BID PRN PRN Reason: CONSTIPATION Rosuvastatin Calcium (Crestor -) 10 mg PO [facility] Last Admin: 01/25/20 22:12 Dose: 10 mg Documented by: Tamsulosin HCl (Flomax -) 0.4 mg PO [facility] Last Admin: 01/25/20 22:12 Dose: 0.4 mg Documented by: Zinc Oxide (Desitin Diaper Rash Oint -) 1 applic TP ASDIR PRN PRN Reason: HYGEINE - Objective Vital Signs: Vital Signs Temperature 97.2 F L 01/26/20 06:00 Pulse Rate 68 01/26/20 10:00 Respiratory Rate 20 01/26/20 10:00 Blood Pressure 86/48 L 01/26/20 10:00 O2 Sat by Pulse Oximetry (%) 96 01/26/20 10:00 Constitutional: Yes: No Distress HENT: Yes: Atraumatic Neck: Yes: Supple Cardiovascular: Yes: Regular Rate and Rhythm Respiratory: Yes: Regular Gastrointestinal: Yes: Soft Extremities: No: Cold, Cool, Cyanosis Edema: No Neurological: Yes: Lethargy Labs: CBC, BMP 01/25/20 07:33 01/26/20 07:54 INR, PTT INR 1.26 (0.83-1.09) H 01/13/20 01:24 Assessment/Plan 89 year old male with history of CKD stage 4 (baseline Cr 1.7-2.2), CAD s/p CA BG, BPH, CHF 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 1. CKD stage 4 2. Dysuria/Suspected cystitis 3. CAD s/p CABG 4. 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 Acute on chronic anemia Renal function stable Continue IV Lasix once daily for HF. Supplement potassium Titrate oxygen as needed. Pulmonary and cardiology follow-up. Trend renal function and electrolytes daily. DNR/DNI, supportive care Oscar Madrid DO
[2020-01-26] MEDS: KCL 10 MEQ IVPB 10 MEQ/100 ML INFUS.BAG IVPB SCH ×3 (12:14→17:23)
[2020-01-26] MEDS: ACETAMINOPHEN 325 MG TABLET (FP) PO PRN (12:29)
[2020-01-26] MEDS: ROSUVASTATIN CA 10 MG TABLET (FP) PO SCH (21:34)
[2020-01-26] MEDS: TAMSULOSIN HCL 0.4 MG CAP PO SCH (21:34)
[2020-01-27] MEDS: LIDOCAINE PATCH REMOVAL MC SCH (05:45)
[2020-01-27] MEDS: LEVOTHYROXINE NA 75 MCG TABLET (FP) PO SCH (06:35)
[2020-01-27 08:37] LABS: BASO % 0.7 % (0-2.0); EOS % 3.6 % (0-4.5); LYMPH % 5.2 % (8-40); MCH 31.9 pg (25.7-33.7); MCHC 33.4 g/dl (32.0-35.9); MEAN CELL VOLUME 95.5 fl (80-96); MEAN PLT VOLUME 8.2 fl (7.5-11.1); MONO % 13.3 % (3.8-10.2); NEUT % 77.2 % (42.8-82.8); PLATELET COUNT 151 K/MM3 (134-434); RBC 3.14 M/mm3 (4.00-5.60); RDW 19.3 % (11.9-15.9)
[2020-01-27 09:00] LABS: BLOOD UREA NITROGEN 72.8 mg/dL (7-18); CALCIUM 8.3 mg/dL (8.5-10.1); CREATININE 2.2 mg/dL (0.55-1.3); POTASSIUM 3.5 mmol/L (3.5-5.1)
[2020-01-27 09:01] LABS: PHOSPHOROUS 2.9 mg/dL (2.5-4.9)
--- NOTE | 2020-01-27 09:46 | PN ---
Progress Note, Physician History of Present Illness: The patient is an 89 year old white male, with a significant past medical history of mild-moderate systolic CHF, s/p CABG, s/p ICD, HTN, recurrent UTIs secondary, DM, PAD s/p left transmetatarsal amputation, on home O2 2L (only at night), dementia, who presented with dysuria, urgency, frequency and gross hematuria and noted to have Cr of 2.4. Renal sono with mild left hydro, bladder sono likely with large clot. Urine currently pink on CBI. Denies any flank pain, fever, chills, CP or shortness of breath, leg swelling. Appetite has been poor, more lethargic, opens eyes but not following commands, not interactive, Hgb 7.2 despite receiving 4 u pRBC transfusion. 01/16/2020 Underwent cysto, evacuation of clot,, bladder biopsy, urologist noted erythema in bladder. prostatic bleeding 01/23/2020 Demadex switched to IV Lasix yesterday for increased SOB, currently being fed lunch 01/23: no acute cardiac events 01/24: No significant changes 01/25: No acute cardiac issues; 01/27/2020 Less tachypneic today and more arousable on NC. - Current Medication List Current Medications: Active Medications Acetaminophen (Tylenol -) 650 mg PO Q6H PRN PRN Reason: PAIN SCALE 1-6 Last Admin: 01/26/20 12:29 Dose: 650 mg Documented by: Amino Acids (Prosource No Carb Liquid Pkt) 30 ml PO BID@0800,1730 [facility] Last Admin: 01/26/20 16:58 Dose: Not Given Documented by: Ascorbic Acid (Vitamin C -) 500 mg PO DAILY [facility] Last Admin: 01/26/20 09:56 Dose: 500 mg Documented by: Bacitracin (Bacitracin -) 1 applic TP DAILY [facility] Last Admin: 01/26/20 09:57 Dose: 1 applic Documented by: Carvedilol (Coreg -) 3.125 mg PO BID [facility] Last Admin: 01/26/20 21:35 Dose: Not Given Documented by: Cholecalciferol (Vitamin D3 -) 1,000 unit PO DAILY [facility] Last Admin: 01/26/20 09:56 Dose: 1,000 unit Documented by: Collagenase (Santyl -) 1 applic TP DAILY [facility]; Protocol Last Admin: 01/26/20 09:58 Dose: 1 applic Documented by: Famotidine (Pepcid -) 20 mg PO DAILY [facility] Last Admin: 01/26/20 09:56 Dose: 20 mg Documented by: Fentanyl (Sublimaze Injection -) 25 mcg IVPUSH [id number] PRN PRN Reason: PAIN-PACU ORDER X 4 DOSES ONLY Finasteride (Proscar -) 5 mg PO DAILY [facility] Last Admin: 01/26/20 09:56 Dose: 5 mg Documented by: Folic Acid (Folic Acid -) 1 mg PO DAILY [facility] Last Admin: 01/26/20 09:56 Dose: 1 mg Documented by: Furosemide (Lasix Injection -) 40 mg IVPUSH DAILY [facility] Last Admin: 01/26/20 12:19 Dose: 40 mg Documented by: Levothyroxine Sodium (Synthroid -) 75 mcg PO DAILY@0700 [facility] Last Admin: 01/27/20 06:35 Dose: 75 mcg Documented by: Lidocaine (Lidoderm Patch -) 1 patch TP DAILY@1630 PRN PRN Reason: PAIN Last Admin: 01/21/20 10:15 Dose: 1 patch Documented by: Miscellaneous (Lidoderm Patch Removal) 1 each MC DAILY@0430 [facility] Last Admin: 01/27/20 05:45 Dose: 1 each Documented by: Multivitamins/Minerals (Theragran-M) 1 each PO DAILY [facility] Last Admin: 01/26/20 09:56 Dose: 1 each Documented by: Nystatin (Nystop Powder -) 1 applic TP BID [facility] Last Admin: 01/26/20 21:35 Dose: 1 applic Documented by: Polyethylene Glycol (Miralax (For Daily Use) -) 17 gm PO BID PRN PRN Reason: CONSTIPATION Rosuvastatin Calcium (Crestor -) 10 mg PO HS [facility] Last Admin: 01/26/20 21:34 Dose: 10 mg Documented by: Tamsulosin HCl (Flomax -) 0.4 mg PO HS [facility] Last Admin: 01/26/20 21:34 Dose: 0.4 mg Documented by: Zinc Oxide (Desitin Diaper Rash Oint -) 1 applic TP ASDIR PRN PRN Reason: HYGEINE - Objective Vital Signs: Vital Signs Temperature 97.7 F 01/27/20 08:49 Pulse Rate 70 01/27/20 08:49 Respiratory Rate 20 01/27/20 08:49 Blood Pressure 91/44 L 01/27/20 08:49 O2 Sat by Pulse Oximetry (%) 96 01/26/20 21:00 Constitutional: Yes: No Distress, Calm, Thin Neck: Yes: Supple Cardiovascular: Yes: Regular Rate and Rhythm Respiratory: Yes: Regular, Diminished, On Nasal O2 Gastrointestinal: Yes: Soft, Hypoactive Bowel Sounds Edema: No Labs: CBC, BMP 01/27/20 08:04 01/27/20 08:04 INR, PTT INR 1.26 (0.83-1.09) H 01/13/20 01:24 Assessment/Plan Problem List - Problems (1) Weakness Code(s): R53.1 - WEAKNESS (2) Acute on chronic systolic (congestive) heart failure Code(s): I50.23 - ACUTE ON CHRONIC SYSTOLIC (CONGESTIVE) HEART FAILURE (3) CAD (coronary artery disease) Code(s): I25.10 - ATHSCL HEART DISEASE OF [place] CORONARY ARTERY W/O ANG PCTRS Qualifiers: Coronary Disease-Associated Artery/Lesion type: [place] artery [place] vs. transplanted heart: [place] heart Associated angina: without angina Qualified Code(s): I25.10 - Atherosclerotic heart disease of [place] coronary artery withou t angina pectoris (4) CKD (chronic kidney disease) Code(s): N18.9 - CHRONIC KIDNEY DISEASE, UNSPECIFIED Qualifiers: Chronic kidney disease stage: stage 3 (moderate) Qualified Code(s): N18.3 - Chronic kidney disease, stage 3 (moderate) (5) Hx of CABG Code(s): Z95.1 - PRESENCE OF AORTOCORONARY BYPASS GRAFT (6) Hypercholesterolemia Code(s): E78.0 - PURE HYPERCHOLESTEROLEMIA * DO NOT USE * (7) Hypothyroidism Code(s): E03.9 - HYPOTHYROIDISM, UNSPECIFIED Qualifiers: Hypothyroidism type: unspecified Qualified Code(s): E03.9 - Hypothyroidism, unspecified (8) ICD (implantable cardioverter-defibrillator) in place Code(s): Z95.810 - PRESENCE OF AUTOMATIC (IMPLANTABLE) CARDIAC DEFIBRILLATOR (9) Pleural effusion Code(s): J90 - PLEURAL EFFUSION, NOT ELSEWHERE CLASSIFIED Assessment/Plan 12/27/[address]: Large bilateral pleural effusion with compressive ATX R>L, no pulm masses, mild mediastinal LAD unchanged from 02/25/2019 12/27/2019 CXR Large right effusion, mild left 07/21/2016 echocardiography revealed moderately dilated LV with mild-moderate decrease in LV function, pacer RV, mild LAE, moderate MR, mild TR 08/02/2018 echocardiography revealed mild to moderately decreased LVEF 40-45%, normal RV size and function, mild LAE, mild MR, trace TR and AR 1. Gross hematuria, dysuria, suspected cystitis 2. 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 Acute on chronic systolic/diastolic failure with bilateral effusion, improved 4. UTI 5. CAD post CABG, angina pectoris 6. HTN 7. NIDDM 8. Hypercholesterolemia 9. 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 Carotid stenosis 11. Hypothyroidism 12. 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 Macrocytic anemia 14. Thrombocytopenia 15. Sacral decubiti ulcer 16. Hypernatremia resolved 17. Moderate right pleural effusion PLAN: 1. Monitor Hgb post transfusion. Monitor renal function and electrolytes 2. Furosemide 40 mg IV QD and monitor diuretic response, renal recovery and electrolytes 3. Restart ASA 81 mg QD pending hemostasis. Continue Carvedilol 3.125 mg BID and Rosuvastatin 10 mg QHS. Not on ARB due to CKD 4. Completed empiric antibiotic course, wean O2 to maintain saO2>90% 5. Pulmonary input noted regarding diagnostic thoracentesis and its risk for the patient, mechanical DVT prophylaxis
[2020-01-27] MEDS: CARVEDILOL 3.125 MG TABLET (FP) PO SCH ×2 (10:06→22:14)
[2020-01-27] MEDS: AMINO ACIDS/PROTEIN HYDROLYS 30 ML LIQUID.PKT PO SCH ×2 (10:06→17:09)
[2020-01-27] MEDS: FOLIC ACID 1 MG TABLET (FP) PO SCH (10:06)
[2020-01-27] MEDS: BACITRACIN 15 GM TUBE TOPICAL OINTMENT TP SCH (10:06)
[2020-01-27] MEDS: FINASTERIDE 5 MG TABLET (FP) PO SCH (10:07)
[2020-01-27] MEDS: FAMOTIDINE 20 MG TABLET PO SCH (10:07)
[2020-01-27] MEDS: FUROSEMIDE 40 MG/4 ML INJECTABLE VIAL IVPUSH SCH (10:07)
[2020-01-27] MEDS: COLLAGENASE CLOSTRIDIUM HIST. 30 GRAMS TUBE TP SCH (10:07)
[2020-01-27] MEDS: ASCORBIC ACID 500 MG TABLET (FP) PO SCH (10:07)
[2020-01-27] MEDS: MULTIVITAMINS THER W-MINERALS COMBO TABLET (FP) PO SCH (10:07)
[2020-01-27] MEDS: NYSTATIN POWDER 100,000 UNITS/GM - 15 GM TOPICAL POWDER TP SCH ×2 (10:07→22:15)
[2020-01-27] MEDS: CHOLECALCIFEROL (VIT D3) 1,000 UNIT (25 MCG) TABLET PO SCH (10:08)
--- NOTE | 2020-01-27 11:20 | PN ---
Progress Note (short form) - Note Progress Note: PULMONARY States breathing is improving. No chest pain or cough. Vital Signs Period Temp Pulse Resp BP Sys/Blanca Pulse Ox Last 24 Hr 97.4 F-97.7 F 67-103 20-20 83-99/30-62 96 Gen: NAD at rest Heart: RRR Lung: decreased breath sounds at the bases Abd: soft, nontender Ext: no edema CBC, BMP 01/27/20 08:04 01/27/20 08:04 Active Medications Acetaminophen (Tylenol -) 650 mg PO Q6H PRN PRN Reason: PAIN SCALE 1-6 Last Admin: 01/26/20 12:29 Dose: 650 mg Documented by: Amino Acids (Prosource No Carb Liquid Pkt) 30 ml PO BID@0800,1730 [facility] Last Admin: 01/27/20 10:06 Dose: 30 ml Documented by: Ascorbic Acid (Vitamin C -) 500 mg PO DAILY [facility] Last Admin: 01/27/20 10:07 Dose: 500 mg Documented by: Bacitracin (Bacitracin -) 1 applic TP DAILY [facility] Last Admin: 01/27/20 10:06 Dose: 1 applic Documented by: Carvedilol (Coreg -) 3.125 mg PO BID [facility] Last Admin: 01/27/20 10:06 Dose: 3.125 mg Documented by: Cholecalciferol (Vitamin D3 -) 1,000 unit PO DAILY [facility] Last Admin: 01/27/20 10:08 Dose: 1,000 unit Documented by: Collagenase (Santyl -) 1 applic TP DAILY [facility]; Protocol Last Admin: 01/27/20 10:07 Dose: 1 applic Documented by: Famotidine (Pepcid -) 20 mg PO DAILY [facility] Last Admin: 01/27/20 10:07 Dose: 20 mg Documented by: Fentanyl (Sublimaze Injection -) 25 mcg IVPUSH [id number] PRN PRN Reason: PAIN-PACU ORDER X 4 DOSES ONLY Finasteride (Proscar -) 5 mg PO DAILY [facility] Last Admin: 01/27/20 10:07 Dose: 5 mg Documented by: Folic Acid (Folic Acid -) 1 mg PO DAILY [facility] Last Admin: 01/27/20 10:06 Dose: 1 mg Documented by: Furosemide (Lasix Injection -) 40 mg IVPUSH DAILY [facility] Last Admin: 01/27/20 10:07 Dose: 40 mg Documented by: Potassium Chloride 40 meq/ (Dextrose) 1,020 mls @ 42 mls/hr IVPB Q24H [facility] Levothyroxine Sodium (Synthroid -) 75 mcg PO DAILY@0700 [facility] Last Admin: 01/27/20 06:35 Dose: 75 mcg Documented by: Lidocaine (Lidoderm Patch -) 1 patch TP DAILY@1630 PRN PRN Reason: PAIN Last Admin: 01/21/20 10:15 Dose: 1 patch Documented by: Miscellaneous (Lidoderm Patch Removal) 1 each MC DAILY@0430 [facility] Last Admin: 01/27/20 05:45 Dose: 1 each Documented by: Multivitamins/Minerals (Theragran-M) 1 each PO DAILY [facility] Last Admin: 01/27/20 10:07 Dose: 1 each Documented by: Nystatin (Nystop Powder -) 1 applic TP BID [facility] Last Admin: 01/27/20 10:07 Dose: 1 applic Documented by: Polyethylene Glycol (Miralax (For Daily Use) -) 17 gm PO BID PRN PRN Reason: CONSTIPATION Rosuvastatin Calcium (Crestor -) 10 mg PO HS [facility] Last Admin: 01/26/20 21:34 Dose: 10 mg Documented by: Tamsulosin HCl (Flomax -) 0.4 mg PO HS [facility] Last Admin: 01/26/20 21:34 Dose: 0.4 mg Documented by: Zinc Oxide (Desitin Diaper Rash Oint -) 1 applic TP ASDIR PRN PRN Reason: HYGEINE A/P Acute on Chronic Systolic/Diastolic Heart Failure Acute on Chronic Renal Failure Pleural Effusions from above CAD s/p CABG UTI HTN DM Hypercholesterolemia PAD Hypothyroidism Anemia - continue lasix - monitor urine output, creatinine - daily weights - repeat CXR - O2 to keep SpO2 >90% - DVT prophylaxis
[2020-01-27] MEDS: POTASSIUM CHLORIDE 40 MEQ in DEXTROSE 5%-WATER - 1,000 ML IVPB SCH (13:00)
--- NOTE | 2020-01-27 13:56 | DS ---
Physical Examination Vital Signs: Vital Signs Temperature 97.7 F 01/27/20 08:49 Pulse Rate 70 01/27/20 08:49 Respiratory Rate 20 01/27/20 08:49 Blood Pressure 91/44 L 01/27/20 08:49 O2 Sat by Pulse Oximetry (%) 99 01/27/20 09:00 Findings/Remarks: awake alert NAD but decreased po intake, generally weak, needs help with ADL cleaning changing washing and feeding awaiting for hospice nurse eval for home hospice; hired private [employer] few hours a day Constitutional: Yes: No Distress, Calm Eyes: Yes: Conjunctiva Clear HENT: Yes: Atraumatic Neck: Yes: Supple Cardiovascular: Yes: Regular Rate and Rhythm Respiratory: Yes: Diminished Gastrointestinal: Yes: Soft. No: Tenderness Renal/: No: Hematuria Musculoskeletal: No: Joint Stiffness, Joint Swelling Extremities: No: Cold, Cool Edema: No Integumentary: Yes: Bruising, Pressure Ulcer, Skin Tear. No: Rash, Venous Stasis Changes Neurological: Yes: Alert. No: Oriented Psychiatric: Yes: Alert. No: Oriented, Agitated, Suicidal Ideation Labs: CBC, BMP 01/27/20 08:04 01/27/20 08:04 Discharge Summary Problems reviewed: Yes Reason For Visit: LOWER URINARY TRACT INFECTIOUS DISEASE Current Active Problems Bleeding of penis (Acute) CKD (chronic kidney disease) (Acute) Hematuria (Acute) Sacral decubitus ulcer, stage II (Acute) UTI (lower urinary tract infection) (Acute) Procedures: Principal: 89 YOM admitted with hematuria, s/p cystoscopy cystitis and UTI Other Procedures: also with multiple medical problems DM ASHD CHF COPD CRF anemia PVD toes apmutation, bed bound, decubs, bruises, dementia. Hospital Course: seen by had cystoscopy and bladder irrigations, ATB for UTI per ID; also seen by renal for ARF / CRF and cardiology for CHF / pulm edema, pulmoanry for respiratory failure. Treated with IV lasix. Seen by surgery for decubs / wounds care, topical treatment. Poor po intake, failure to thrive; eval by CM / palliative care for home hospice. DNR DNI. Condition: Guarded - Instructions Referrals: Joie Noonan [Primary Care Provider] - Disposition: HOME - Home Medications Comprehensive Discharge Medication List: Ambulatory Orders Ascorbate Calcium [Vitamin C] 500 mg PO DAILY 01/20/14 Aspirin [ASA -] 81 mg PO DAILY 01/20/14 Carvedilol 3.125 mg PO BID 01/20/14 Folic Acid - 1 mg PO DAILY 01/20/14 Pregabalin [Lyrica -] 50 mg PO HS 01/20/14 Tamsulosin HCl [Flomax -] 0.4 mg PO HS 01/20/14 Levothyroxine [Synthroid -] 75 mcg PO DAILY 07/21/16 Ergocalciferol (Vitamin D2) [Vitamin D2] 2,000 unit PO DAILY 06/09/17 Insulin Glargine,Hum.rec.anlog [Lantus (10mL VIAL) -] 10 units SQ HS 06/09/17 Multivit-Min/FA/Lycopen/Lutein [Centrum Silver Tablet] 1 tab PO DAILY 06/09/17 Rosuvastatin Calcium 10 mg PO HS 06/09/17 Finasteride [Proscar -] 5 mg PO DAILY tablet 01/13/19 Famotidine [Pepcid] 1 tab PO DAILY 08/07/19 Acetaminophen [Tylenol .Regular Strength -] 650 mg PO Q6H PRN tablet 01/01/20 Bacitracin - [Bacitracin Topical Ointment -] 1 applic TP DAILY tube 01/01/20 Furosemide [Lasix -] 40 mg PO BID #180 tab 01/01/20 Polyethylene Glycol 3350 [Miralax 119 gm Btl -] 17 gm PO BID bottle 01/01/20
--- NOTE | 2020-01-27 16:17 | PN ---
Progress Note, Physician Chief Complaint: Hematuria History of Present Illness: Seen and examined at the bedside awake and alert Denies any shortness of breath, chest pain, abdominal pain Poor oral intake as per nurse's aide Making urine - Current Medication List Current Medications: Active Medications Acetaminophen (Tylenol -) 650 mg PO Q6H PRN PRN Reason: PAIN SCALE 1-6 Last Admin: 01/26/20 12:29 Dose: 650 mg Documented by: Amino Acids (Prosource No Carb Liquid Pkt) 30 ml PO BID@0800,1730 [facility] Last Admin: 01/27/20 10:06 Dose: 30 ml Documented by: Ascorbic Acid (Vitamin C -) 500 mg PO DAILY [facility] Last Admin: 01/27/20 10:07 Dose: 500 mg Documented by: Bacitracin (Bacitracin -) 1 applic TP DAILY [facility] Last Admin: 01/27/20 10:06 Dose: 1 applic Documented by: Carvedilol (Coreg -) 3.125 mg PO BID [facility] Last Admin: 01/27/20 10:06 Dose: 3.125 mg Documented by: Cholecalciferol (Vitamin D3 -) 1,000 unit PO DAILY [facility] Last Admin: 01/27/20 10:08 Dose: 1,000 unit Documented by: Collagenase (Santyl -) 1 applic TP DAILY [facility]; Protocol Last Admin: 01/27/20 10:07 Dose: 1 applic Documented by: Famotidine (Pepcid -) 20 mg PO DAILY [facility] Last Admin: 01/27/20 10:07 Dose: 20 mg Documented by: Fentanyl (Sublimaze Injection -) 25 mcg IVPUSH [id number] PRN PRN Reason: PAIN-PACU ORDER X 4 DOSES ONLY Finasteride (Proscar -) 5 mg PO DAILY [facility] Last Admin: 01/27/20 10:07 Dose: 5 mg Documented by: Folic Acid (Folic Acid -) 1 mg PO DAILY [facility] Last Admin: 01/27/20 10:06 Dose: 1 mg Documented by: Furosemide (Lasix Injection -) 40 mg IVPUSH DAILY [facility] Last Admin: 01/27/20 10:07 Dose: 40 mg Documented by: Potassium Chloride 40 meq/ (Dextrose) 1,020 mls @ 42 mls/hr IVPB Q24H [facility] Last Admin: 01/27/20 13:00 Dose: 42 mls/hr Documented by: Levothyroxine Sodium (Synthroid -) 75 mcg PO DAILY@0700 [facility] Last Admin: 01/27/20 06:35 Dose: 75 mcg Documented by: Lidocaine (Lidoderm Patch -) 1 patch TP DAILY@1630 PRN PRN Reason: PAIN Last Admin: 01/21/20 10:15 Dose: 1 patch Documented by: Miscellaneous (Lidoderm Patch Removal) 1 each MC DAILY@0430 [facility] Last Admin: 01/27/20 05:45 Dose: 1 each Documented by: Multivitamins/Minerals (Theragran-M) 1 each PO DAILY [facility] Last Admin: 01/27/20 10:07 Dose: 1 each Documented by: Nystatin (Nystop Powder -) 1 applic TP BID [facility] Last Admin: 01/27/20 10:07 Dose: 1 applic Documented by: Polyethylene Glycol (Miralax (For Daily Use) -) 17 gm PO BID PRN PRN Reason: CONSTIPATION Rosuvastatin Calcium (Crestor -) 10 mg PO HS [facility] Last Admin: 01/26/20 21:34 Dose: 10 mg Documented by: Tamsulosin HCl (Flomax -) 0.4 mg PO [facility] Last Admin: 01/26/20 21:34 Dose: 0.4 mg Documented by: Zinc Oxide (Desitin Diaper Rash Oint -) 1 applic TP ASDIR PRN PRN Reason: HYGEINE - Objective Vital Signs: Vital Signs Temperature 97.5 F L 01/27/20 14:17 Pulse Rate 69 01/27/20 14:17 Respiratory Rate 20 01/27/20 14:17 Blood Pressure 98/46 L 01/27/20 14:17 O2 Sat by Pulse Oximetry (%) 99 01/27/20 09:00 Constitutional: Yes: No Distress HENT: Yes: Atraumatic Neck: Yes: Supple Cardiovascular: Yes: Regular Rate and Rhythm Respiratory: Yes: Regular, Diminished, On Nasal O2 Gastrointestinal: Yes: Soft Extremities: No: Cyanosis Neurological: Yes: Alert Labs: CBC, BMP 01/27/20 08:04 01/27/20 08:04 INR, PTT INR 1.26 (0.83-1.09) H 01/13/20 01:24 Assessment/Plan 89 year old male with history of CKD stage 4 (baseline Cr 1.7-2.2), CAD s/p CABG, BPH, CHF 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 1. CKD stage 4 2. Dysuria/Suspected cystitis 3. CAD s/p CABG 4. 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 Acute on chronic anemia Renal function stable continue Lasix IV for management of volume overload/congestive heart failure We will start D5 water with potassium for management of water deficit in the setting of diuretics Trend renal function and electrolytes daily Cardiology follow-up Continue protein sedimentation Oscar Madrid DO
[2020-01-27] MEDS: TAMSULOSIN HCL 0.4 MG CAP PO SCH (22:14)
[2020-01-27] MEDS: ROSUVASTATIN CA 10 MG TABLET (FP) PO SCH (22:15)
[2020-01-28] MEDS: LIDOCAINE PATCH REMOVAL MC SCH (05:48)
[2020-01-28] MEDS: LEVOTHYROXINE NA 75 MCG TABLET (FP) PO SCH (06:24)
[2020-01-28 06:31] VITALS: BP 101/46; PULSE 75; TEMP 97.7
--- NOTE | 2020-01-28 09:32 | PN ---
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; - Current Medication List Current Medications: Active Medications Acetaminophen (Tylenol -) 650 mg PO Q6H PRN PRN Reason: PAIN SCALE 1-6 Last Admin: 01/26/20 12:29 Dose: 650 mg Documented by: Amino Acids (Prosource No Carb Liquid Pkt) 30 ml PO BID@0800,1730 [facility] Last Admin: 01/27/20 17:09 Dose: Not Given Documented by: Ascorbic Acid (Vitamin C -) 500 mg PO DAILY [facility] Last Admin: 01/27/20 10:07 Dose: 500 mg Documented by: Bacitracin (Bacitracin -) 1 applic TP DAILY [facility] Last Admin: 01/27/20 10:06 Dose: 1 applic Documented by: Carvedilol (Coreg -) 3.125 mg PO BID [facility] Last Admin: 01/27/20 22:14 Dose: Not Given Documented by: Cholecalciferol (Vitamin D3 -) 1,000 unit PO DAILY [facility] Last Admin: 01/27/20 10:08 Dose: 1,000 unit Documented by: Collagenase (Santyl -) 1 applic TP DAILY [facility]; Protocol Last Admin: 01/27/20 10:07 Dose: 1 applic Documented by: Famotidine (Pepcid -) 20 mg PO DAILY [facility] Last Admin: 01/27/20 10:07 Dose: 20 mg Documented by: Fentanyl (Sublimaze Injection -) 25 mcg IVPUSH [id number] PRN PRN Reason: PAIN-PACU ORDER X 4 DOSES ONLY Finasteride (Proscar -) 5 mg PO DAILY [facility] Last Admin: 01/27/20 10:07 Dose: 5 mg Documented by: Folic Acid (Folic Acid -) 1 mg PO DAILY [facility] Last Admin: 01/27/20 10:06 Dose: 1 mg Documented by: Furosemide (Lasix Injection -) 40 mg IVPUSH DAILY [facility] Last Admin: 01/27/20 10:07 Dose: 40 mg Documented by: Potassium Chloride 40 meq/ (Dextrose) 1,020 mls @ 42 mls/hr IVPB Q24H [facility] Last Admin: 01/27/20 13:00 Dose: 42 mls/hr Documented by: Levothyroxine Sodium (Synthroid -) 75 mcg PO DAILY@0700 [facility] Last Admin: 01/28/20 06:24 Dose: 75 mcg Documented by: Lidocaine (Lidoderm Patch -) 1 patch TP DAILY@1630 PRN PRN Reason: PAIN Last Admin: 01/21/20 10:15 Dose: 1 patch Documented by: Miscellaneous (Lidoderm Patch Removal) 1 each MC DAILY@0430 [facility] Last Admin: 01/28/20 05:48 Dose: 1 each Documented by: Multivitamins/Minerals (Theragran-M) 1 each PO DAILY [facility] Last Admin: 01/27/20 10:07 Dose: 1 each Documented by: Nystatin (Nystop Powder -) 1 applic TP BID [facility] Last Admin: 01/27/20 22:15 Dose: 1 applic Documented by: Polyethylene Glycol (Miralax (For Daily Use) -) 17 gm PO BID PRN PRN Reason: CONSTIPATION Rosuvastatin Calcium (Crestor -) 10 mg PO [facility] Last Admin: 01/27/20 22:15 Dose: 10 mg Documented by: Tamsulosin HCl (Flomax -) 0.4 mg PO [facility] Last Admin: 01/27/20 22:14 Dose: 0.4 mg Documented by: Zinc Oxide (Desitin Diaper Rash Oint -) 1 applic TP ASDIR PRN PRN Reason: HYGEINE - Objective Vital Signs: Vital Signs Temperature 97.7 F 01/28/20 06:00 Pulse Rate 75 01/28/20 06:00 Respiratory Rate 20 01/28/20 06:00 Blood Pressure 101/46 L 01/28/20 06:00 O2 Sat by Pulse Oximetry (%) 99 01/27/20 21:00 Constitutional: Yes: No Distress, Calm Eyes: Yes: Conjunctiva Clear HENT: Yes: Atraumatic Neck: Yes: Supple Cardiovascular: Yes: Regular Rate and Rhythm Respiratory: Yes: CTA Bilaterally Gastrointestinal: Yes: Soft. No: Tenderness Genitourinary: No: Hematuria Musculoskeletal: No: Joint Stiffness, Joint Swelling Extremities: No: Cold, Cool, Cyanosis Edema: No Integumentary: Yes: Bruising, Pressure Ulcer, Skin Tear. No: Erythema, Rash, Venous Stasis Changes Neurological: Yes: Alert. No: Oriented ...Motor Strength: WNL Psychiatric: Yes: Alert. No: Oriented, Agitated, Suicidal Ideation Labs: CBC, BMP 01/27/20 08:04 01/27/20 08:04 INR, PTT INR 1.26 (0.83-1.09) H 01/13/20 01:24 - ....Imaging Other: Report Reviewed Assessment/Plan 89 yo M history CHF s/p AICD, CAD s/p stents, HTN, HL, CKD, BPH, hypothyroid admitted with hematuria, dysuria and passing clots; UCx enteroccocus; s/p Cystoscopy; pathology benign CHF po lasix; borderline hypotensive; decreased po intake palliative care f/u DVT pfx - can not use sq heparin due to bleeding decubs PFX turn q1 hour; wounds care; air mattress; protein malnutrition - added po AA d/w pt's ; DNR DNI; DC home with hospice; 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
[2020-01-28] MEDS: ASCORBIC ACID 500 MG TABLET (FP) PO SCH (10:00)
[2020-01-28] MEDS: FINASTERIDE 5 MG TABLET (FP) PO SCH (10:00)
[2020-01-28] MEDS: FAMOTIDINE 20 MG TABLET PO SCH (10:00)
[2020-01-28] MEDS: FOLIC ACID 1 MG TABLET (FP) PO SCH (10:00)
[2020-01-28] MEDS: CARVEDILOL 3.125 MG TABLET (FP) PO SCH (10:00)
[2020-01-28] MEDS: MULTIVITAMINS THER W-MINERALS COMBO TABLET (FP) PO SCH (10:00)
[2020-01-28] MEDS: CHOLECALCIFEROL (VIT D3) 1,000 UNIT (25 MCG) TABLET PO SCH (10:00)
[2020-01-28] MEDS: BACITRACIN 15 GM TUBE TOPICAL OINTMENT TP SCH (10:01)
[2020-01-28] MEDS: FUROSEMIDE 40 MG/4 ML INJECTABLE VIAL IVPUSH SCH (10:01)
[2020-01-28] MEDS: NYSTATIN POWDER 100,000 UNITS/GM - 15 GM TOPICAL POWDER TP SCH (10:01)
[2020-01-28] MEDS: COLLAGENASE CLOSTRIDIUM HIST. 30 GRAMS TUBE TP SCH (10:01)
[2020-01-28] MEDS: AMINO ACIDS/PROTEIN HYDROLYS 30 ML LIQUID.PKT PO SCH (10:01)
--- NOTE | 2020-01-28 10:32 | PN ---
Progress Note (short form) - Note Progress Note: PULMONARY Denies shortness of breath. No chest pain or cough. Vital Signs Period Temp Pulse Resp BP Sys/Blanca Pulse Ox Last 24 Hr 97.5 F-97.7 F 69-75 20-20 98-101/46-46 99 Gen: NAD at rest Heart: RRR Lung: decreased breath sounds at the bases Abd: soft, nontender Ext: no edema CBC, BMP 01/27/20 08:04 01/27/20 08:04 Active Medications Acetaminophen (Tylenol -) 650 mg PO Q6H PRN PRN Reason: PAIN SCALE 1-6 Last Admin: 01/26/20 12:29 Dose: 650 mg Documented by: Amino Acids (Prosource No Carb Liquid Pkt) 30 ml PO BID@0800,1730 [facility] Last Admin: 01/28/20 10:01 Dose: Not Given Documented by: Ascorbic Acid (Vitamin C -) 500 mg PO DAILY [facility] Last Admin: 01/28/20 10:00 Dose: 500 mg Documented by: Bacitracin (Bacitracin -) 1 applic TP DAILY [facility] Last Admin: 01/28/20 10:01 Dose: 1 applic Documented by: Carvedilol (Coreg -) 3.125 mg PO BID [facility] Last Admin: 01/28/20 10:00 Dose: 3.125 mg Documented by: Cholecalciferol (Vitamin D3 -) 1,000 unit PO DAILY [facility] Last Admin: 01/28/20 10:00 Dose: 1,000 unit Documented by: Collagenase (Santyl -) 1 applic TP DAILY [facility]; Protocol Last Admin: 01/28/20 10:01 Dose: 1 applic Documented by: Famotidine (Pepcid -) 20 mg PO DAILY [facility] Last Admin: 01/28/20 10:00 Dose: 20 mg Documented by: Fentanyl (Sublimaze Injection -) 25 mcg IVPUSH [id number] PRN PRN Reason: PAIN-PACU ORDER X 4 DOSES ONLY Finasteride (Proscar -) 5 mg PO DAILY [facility] Last Admin: 01/28/20 10:00 Dose: 5 mg Documented by: Folic Acid (Folic Acid -) 1 mg PO DAILY [facility] Last Admin: 01/28/20 10:00 Dose: 1 mg Documented by: Furosemide (Lasix Injection -) 40 mg IVPUSH DAILY [facility] Last Admin: 01/28/20 10:01 Dose: 40 mg Documented by: Potassium Chloride 40 meq/ (Dextrose) 1,020 mls @ 42 mls/hr IVPB Q24H [facility] Last Admin: 01/27/20 13:00 Dose: 42 mls/hr Documented by: Levothyroxine Sodium (Synthroid -) 75 mcg PO DAILY@0700 [facility] Last Admin: 01/28/20 06:24 Dose: 75 mcg Documented by: Lidocaine (Lidoderm Patch -) 1 patch TP DAILY@1630 PRN PRN Reason: PAIN Last Admin: 01/21/20 10:15 Dose: 1 patch Documented by: Miscellaneous (Lidoderm Patch Removal) 1 each MC DAILY@0430 [facility] Last Admin: 01/28/20 05:48 Dose: 1 each Documented by: Multivitamins/Minerals (Theragran-M) 1 each PO DAILY [facility] Last Admin: 01/28/20 10:00 Dose: 1 each Documented by: Nystatin (Nystop Powder -) 1 applic TP BID [facility] Last Admin: 01/28/20 10:01 Dose: 1 applic Documented by: Polyethylene Glycol (Miralax (For Daily Use) -) 17 gm PO BID PRN PRN Reason: CONSTIPATION Rosuvastatin Calcium (Crestor -) 10 mg PO [facility] Last Admin: 01/27/20 22:15 Dose: 10 mg Documented by: Tamsulosin HCl (Flomax -) 0.4 mg PO [facility] Last Admin: 01/27/20 22:14 Dose: 0.4 mg Documented by: Zinc Oxide (Desitin Diaper Rash Oint -) 1 applic TP ASDIR PRN PRN Reason: HYGEINE A/P Acute on Chronic Systolic/Diastolic Heart Failure Acute on Chronic Renal Failure Pleural Effusions from above CAD s/p CABG UTI HTN DM Hypercholesterolemia PAD Hypothyroidism Anemia - continue lasix - monitor urine output, creatinine - daily weights - O2 to keep SpO2 >90% - DVT prophylaxis
--- NOTE | 2020-01-28 10:45 | PN ---
Progress Note, Physician Chief Complaint: Events noted Lethargic History of Present Illness: Patient was seen and examined. Arousable. Chart was reviewed (+) generalized weakness Lethargy - Current Medication List Current Medications: Active Medications Acetaminophen (Tylenol -) 650 mg PO Q6H PRN PRN Reason: PAIN SCALE 1-6 Last Admin: 01/26/20 12:29 Dose: 650 mg Documented by: Amino Acids (Prosource No Carb Liquid Pkt) 30 ml PO BID@0800,1730 [facility] Last Admin: 01/28/20 10:01 Dose: Not Given Documented by: Ascorbic Acid (Vitamin C -) 500 mg PO DAILY [facility] Last Admin: 01/28/20 10:00 Dose: 500 mg Documented by: Bacitracin (Bacitracin -) 1 applic TP DAILY [facility] Last Admin: 01/28/20 10:01 Dose: 1 applic Documented by: Carvedilol (Coreg -) 3.125 mg PO BID [facility] Last Admin: 01/28/20 10:00 Dose: 3.125 mg Documented by: Cholecalciferol (Vitamin D3 -) 1,000 unit PO DAILY [facility] Last Admin: 01/28/20 10:00 Dose: 1,000 unit Documented by: Collagenase (Santyl -) 1 applic TP DAILY [facility]; Protocol Last Admin: 01/28/20 10:01 Dose: 1 applic Documented by: Famotidine (Pepcid -) 20 mg PO DAILY [facility] Last Admin: 01/28/20 10:00 Dose: 20 mg Documented by: Fentanyl (Sublimaze Injection -) 25 mcg IVPUSH [id number] PRN PRN Reason: PAIN-PACU ORDER X 4 DOSES ONLY Finasteride (Proscar -) 5 mg PO DAILY [facility] Last Admin: 01/28/20 10:00 Dose: 5 mg Documented by: Folic Acid (Folic Acid -) 1 mg PO DAILY [facility] Last Admin: 01/28/20 10:00 Dose: 1 mg Documented by: Furosemide (Lasix Injection -) 40 mg IVPUSH DAILY [facility] Last Admin: 01/28/20 10:01 Dose: 40 mg Documented by: Potassium Chloride 40 meq/ (Dextrose) 1,020 mls @ 42 mls/hr IVPB Q24H [facility] Last Admin: 01/27/20 13:00 Dose: 42 mls/hr Documented by: Levothyroxine Sodium (Synthroid -) 75 mcg PO DAILY@0700 [facility] Last Admin: 01/28/20 06:24 Dose: 75 mcg Documented by: Lidocaine (Lidoderm Patch -) 1 patch TP DAILY@1630 PRN PRN Reason: PAIN Last Admin: 01/21/20 10:15 Dose: 1 patch Documented by: Miscellaneous (Lidoderm Patch Removal) 1 each MC DAILY@0430 [facility] Last Admin: 01/28/20 05:48 Dose: 1 each Documented by: Multivitamins/Minerals (Theragran-M) 1 each PO DAILY [facility] Last Admin: 01/28/20 10:00 Dose: 1 each Documented by: Nystatin (Nystop Powder -) 1 applic TP BID [facility] Last Admin: 01/28/20 10:01 Dose: 1 applic Documented by: Polyethylene Glycol (Miralax (For Daily Use) -) 17 gm PO BID PRN PRN Reason: CONSTIPATION Rosuvastatin Calcium (Crestor -) 10 mg PO [facility] Last Admin: 01/27/20 22:15 Dose: 10 mg Documented by: Tamsulosin HCl (Flomax -) 0.4 mg PO [facility] Last Admin: 01/27/20 22:14 Dose: 0.4 mg Documented by: Zinc Oxide (Desitin Diaper Rash Oint -) 1 applic TP ASDIR PRN PRN Reason: HYGEINE - Objective Vital Signs: Vital Signs Temperature 97.7 F 01/28/20 06:00 Pulse Rate 75 01/28/20 06:00 Respiratory Rate 20 01/28/20 06:00 Blood Pressure 101/46 L 01/28/20 06:00 O2 Sat by Pulse Oximetry (%) 99 01/27/20 21:00 Neck: Yes: Supple Cardiovascular: Yes: Regular Rate and Rhythm, S1, S2 Respiratory: Yes: Diminished Gastrointestinal: Yes: Normal Bowel Sounds, Soft. No: Tenderness Extremities: Yes: Amputation Edema: No Labs: CBC, BMP 01/27/20 08:04 01/27/20 08:04 Problem List - Problems (1) CKD (chronic kidney disease) Code(s): N18.9 - CHRONIC KIDNEY DISEASE, UNSPECIFIED Qualifiers: Chronic kidney disease stage: unspecified stage Qualified Code(s): N18.9 - Chronic kidney disease, unspecified (2) UTI (lower urinary tract infection) Code(s): N39.0 - URINARY TRACT INFECTION, SITE NOT SPECIFIED (3) ASHD (arteriosclerotic heart disease) Code(s): I25.10 - ATHSCL HEART DISEASE OF [place] CORONARY ARTERY W/O ANG PCTRS (4) Acute on chronic systolic (congestive) heart failure Code(s): I50.23 - ACUTE ON CHRONIC SYSTOLIC (CONGESTIVE) HEART FAILURE (5) Carotid artery disease Code(s): I77.9 - DISORDER OF ARTERIES AND ARTERIOLES, UNSPECIFIED (6) Diabetes mellitus Code(s): E11.9 - TYPE 2 DIABETES MELLITUS WITHOUT COMPLICATIONS (7) HTN (hypertension) Code(s): I10 - ESSENTIAL (PRIMARY) HYPERTENSION Qualifiers: (8) History of implantable cardiac defibrillator (ICD) Code(s): [id number] - (9) Hx of CABG Code(s): Z95.1 - PRESENCE OF AORTOCORONARY BYPASS GRAFT (10) Hypercholesterolemia Code(s): E78.0 - PURE HYPERCHOLESTEROLEMIA * DO NOT USE * (11) PVD (peripheral vascular disease) Code(s): I73.9 - PERIPHERAL VASCULAR DISEASE, UNSPECIFIED (12) Systolic dysfunction with acute on chronic heart failure Code(s): I50.23 - ACUTE ON CHRONIC SYSTOLIC (CONGESTIVE) HEART FAILURE (13) Weakness Code(s): R53.1 - WEAKNESS Assessment/Plan 1. Gross hematuria, dysuria, suspected cystitis 2. 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 Chronic systolic/diastolic failure with bilateral effusion, worsened SOB 4. UTI 5. CAD post CABG, angina pectoris 6. HTN 7. NIDDM 8. Hypercholesterolemia 9. 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 Carotid stenosis 11. Hypothyroidism 12. 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 Macrocytic anemia 14. Thrombocytopenia 15. Sacral decubiti ulcer 16. Hypernatremia 17. Moderate right pleural effusion PLAN: 1. Transfuse as needed. Monitor renal function and electrolytes 2. Furosemide 40 mg IV BID and monitor renal recovery and electrolytes 3. Restart ASA 81 mg QD pending hemostasis. Continue Carvedilol 3.125 mg BID. Currently on Rosuvastatin 10 mg QHS. Not on ARB due to CKD 4. Supportive care. DVT prophylaxis Guarded Keyon Fair MD
[2020-01-28] MEDS: POTASSIUM CHLORIDE 40 MEQ in DEXTROSE 5%-WATER - 1,000 ML IVPB SCH (11:37)
== END 2020-01-28 12:19 | disposition home or self-care (01) | DRG 853 ==
LOC: JER 00:48 → JERBED 03:21 → J6S 20:08
PROVIDERS: ADMIT Internal Medicine; ATTEND Internal Medicine
PROC: 30233N1 Transfusion of Nonautologous Red Blood Cells into Peripheral Vein, Percutaneous Approach (ICD-10-PCS; 2020-01-13)
PROC: 0TCB8ZZ Extirpation of Matter from Bladder, Via Natural or Artificial Opening Endoscopic (ICD-10-PCS; 2020-01-16)
PROC: 0T5C8ZZ Destruction of Bladder Neck, Via Natural or Artificial Opening Endoscopic (ICD-10-PCS; principal; 2020-01-16 13:00)
PROC: 0TBB8ZX Excision of Bladder, Via Natural or Artificial Opening Endoscopic, Diagnostic (ICD-10-PCS; 2020-01-16 13:00)
DX: A41.9 Sepsis, unspecified organism (principal); I50.43 Acute on chronic combined systolic (congestive) and diastolic (congestive) heart failure; G92 Toxic encephalopathy; I13.0 Hypertensive heart and chronic kidney disease with heart failure and stage 1 through stage 4 chronic kidney disease, or unspecified chronic kidney disease; N39.0 Urinary tract infection, site not specified; N18.4 Chronic kidney disease, stage 4 (severe); D62 Acute posthemorrhagic anemia; N17.9 Acute kidney failure, unspecified; E87.0 Hyperosmolality and hypernatremia; E46 Unspecified protein-calorie malnutrition; Z68.1 Body mass index [BMI] 19.9 or less, adult; D64.9 Anemia, unspecified; L89.152 Pressure ulcer of sacral region, stage 2; Z95.1 Presence of aortocoronary bypass graft; R31.0 Gross hematuria; D69.6 Thrombocytopenia, unspecified; R62.7 Adult failure to thrive; E11.22 Type 2 diabetes mellitus with diabetic chronic kidney disease; E11.51 Type 2 diabetes mellitus with diabetic peripheral angiopathy without gangrene; Z99.81 Dependence on supplemental oxygen; F03.90 Unspecified dementia, unspecified severity, without behavioral disturbance, psychotic disturbance, mood disturbance, and anxiety; Z79.4 Long term (current) use of insulin; I25.10 Atherosclerotic heart disease of native coronary artery without angina pectoris; E03.9 Hypothyroidism, unspecified; N40.0 Benign prostatic hyperplasia without lower urinary tract symptoms; E78.00 Pure hypercholesterolemia, unspecified; B95.2 Enterococcus as the cause of diseases classified elsewhere; Z95.810 Presence of automatic (implantable) cardiac defibrillator; D63.1 Anemia in chronic kidney disease
CPT/HCPCS: 36415; 36430; 36511; 36600; 70450-TC; 71045-TC-FY; 76775-TC; 76856-TC; 80048; 80053; 81003; 82140; 82607; 82668; 82728; 82803; 82962; 83540; 83550; 83605; 83735; 84100; 84443; 85025; 85027; 85610; 85730; 86850; 86900; 86901; 86922; 87040; 87086; 87186; 88305-TC; 93005; 93010; 94760; 99285-25; E0186; J0131; J0885; P9038; P9058; U0003